=== PATIENT | female | born 1960 | race African-American/Black ===

== ENCOUNTER 2019-12-11 09:06 | Inpatient (IN) | payer OTHER ==
[2019-12-11] VITALS (27 sets, daily range): BP systolic 41–141; BP diastolic 30–110
[~2019-12-11] VITALS: Ht 162.6 cm; Wt 57.6 kg
[2019-12-11] MEDS ORDERED: Rocuronium Bromide 50mg/5ml Inj IV ONE (09:23)
[2019-12-11] MEDS ORDERED: Etomidate 40mg/20ml Inj IV ONE (09:23)
[2019-12-11 09:37] LABS: HEMATOCRIT 30.2 % (37.0-47.0); HEMOGLOBIN 10.7 G/DL (12.0-16.0); MEAN CORPUSCULAR VOLUME 100 FL (80-99); PLATELET COUNT 233 K/UL (150-450); RED BLOOD COUNT 3.03 M/UL (4.20-5.40); RED CELL DISTRIBUTION WIDTH 14.2 % (11.6-14.8); WHITE BLOOD COUNT 18.5 K/UL (4.8-10.8)
[2019-12-11] MEDS ORDERED: Levophed 4mg/4mL Inj IV ONE ×4 (09:58→14:12)
[2019-12-11 10:08] LABS: ALANINE AMINOTRANSFERASE 20 U/L (12-78); ALBUMIN 2.2 G/DL (3.4-5.0); ALBUMIN/GLOBULIN RATIO 0.5 (1.0-2.7); ALKALINE PHOSPHATASE 84 U/L (46-116); ANION GAP 33 mmol/L (5-15); ASPARTATE AMINO TRANSFERASE 17 U/L (15-37); BILIRUBIN,TOTAL 0.7 MG/DL (0.2-1.0); BLOOD UREA NITROGEN 77 mg/dL (7-18); CALCIUM 8.8 MG/DL (8.5-10.1); CHLORIDE 71 MMOL/L (98-107); CREATININE 2.9 MG/DL (0.55-1.30)
[2019-12-11 10:25] LABS: SODIUM 112 MMOL/L (136-145)
[2019-12-11 10:26] LABS: CARBON DIOXIDE 8 MMOL/L (21-32)
[2019-12-11] MEDS ORDERED: Vancomycin 1.5gm/NS Premix 275 ML IVPB ONE (10:30)
[2019-12-11] MEDS ORDERED: Cefepime HCl 2 GM in D5W 55 ML IVPB ONE (10:30)
[2019-12-11] MEDS ORDERED: Vancomycin 1.5 GM in NS 275 ML IVPB SCH (10:39)
--- NOTE | 2019-12-11 10:43 | Diagnostic Imaging Report ---
EXAM: XR Chest, 1 View CLINICAL HISTORY: PREOP TECHNIQUE: Frontal view of the chest. COMPARISON: None FINDINGS: Hardware: Endotracheal tube noted in the region of the right mainstem bronchus. Lungs/pleura: Hazy opacities throughout the left lung and mild patchy opacities in the right lung. No pleural effusion or pneumothorax. Heart/mediastinum: Borderline size of the cardiac silhouette. Soft tissues: Unremarkable. Bones: No acute fracture. Degenerative changes of the spine. Upper abdomen: Normal. IMPRESSION: 1. Endotracheal tube noted in the region of the right mainstem bronchus. 2. Hazy opacities throughout the left lung and mild patchy opacities in the right lung may represent atelectasis versus infectious/inflammatory process.
[2019-12-11] MEDS ORDERED: Sodium Bicarbonate 50ml Carp ONE ×2 (11:58→12:43)
[2019-12-11] MEDS ORDERED: Sodium Bicarbonate 50ml Carp IV ONE ×2 (12:30→12:45)
--- NOTE | 2019-12-11 12:35 | Diagnostic Imaging Report ---
EXAM: XR Chest, 1 View CLINICAL HISTORY: TUBE PLCMT TECHNIQUE: Frontal view of the chest. COMPARISON: Chest radiograph on 12/11/2019 FINDINGS: Hardware: Endotracheal tube terminates near the opening of the right mainstem bronchus. Recommend retraction by approximately 2-3 cm. Lungs/pleura: Decreased opacity in the left lung. Increased patchy opacity throughout the right lung. No pleural effusion or pneumothorax. Heart/mediastinum: Stable mild enlargement of the cardiac silhouette. Soft tissues: Unremarkable. Bones: No acute fracture. Upper abdomen: Normal. IMPRESSION: 1. Endotracheal tube terminates near the opening of the right mainstem bronchus. Recommend retraction by approximately 2-3 cm. 2. Decreased opacity in the left lung. Increased patchy opacity throughout the right lung.
--- NOTE | 2019-12-11 12:36 | Emergency Room Report ---
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 Patient History Limited by: medical condition - Only altered Past Medical History: see triage record Last Menstrual Period: n/a Reviewed Nursing Documentation: PMH: Agreed; PSxH: Agreed Nursing Documentation-PMH Past Medical History: No History, Except For Hx Diabetes: Yes Review of Systems All Other Systems: limited Physical Exam Vital Signs Date Time Temp Pulse Resp B/P (MAP) Pulse Ox O2 Delivery O2 Flow Rate FiO2 12/11/19 09:03 99.0 105 18 141/110 (120) 98 Room Air 12/11/19 10:17 100 12/11/19 12:02 15.0 Sp02 EP Interpretation: reviewed, normal General Appearance: severe distress, lethargic Head: normocephalic, atraumatic Eyes: bilateral eye PERRL, bilateral eye EOMI ENT: uvula midline, dry mucus membranes Neck: supple, thyroid normal, supple/symm/no masses Respiratory: lungs clear, respiratory distress, accessory muscle use, other - kussmaul breathing Cardiovascular #1: normal peripheral pulses, no edema, no gallop, no murmur, tachycardia Gastrointestinal: non tender, soft, no guarding, no rebound Musculoskeletal: normal inspection Neurologic: alert, oriented x3 Psychiatric: mood/affect normal Skin: no rash, warm/dry Procedures Critical Care Time Critical Care Time Given the critical condition in which the patient arrived, the patient was immediately assessed by myself and the nurse, and cardiac monitoring initiated due to the potential for rapid decompensation of the patient's clinical condition. During the course of the patient's stay, I spent a considerable amount of time at the bedside performing serial re-evaluations of the patient's hemodynamic and clinical status because of the recognized potential threat to life or limb in this condition. I then had a chance to review not only all of the available current laboratory and radiographic studies obtained today, but I also reviewed old records available to me at the time. Additionally, any ancillary information available including digitizer records were reviewed. Sequential vital signs were obtained. Critical Care time of 130 minutes was performed exclusive of billable procedures. Central Line Central Line : Consent: Emergent Central Line Lumen: triple No Max Barrier Tech Because: emergency insertion Central Line Postion: femoral (L) Complications: none Central Line Post Position: sutured, good blood return Attempts: One Patient Tolerated: Well Intubation Intubation : Consent: Emergent Time of Intubation: 10:17 Intubation Method: orotracheal Tube Size (cm): 7.5 Medications: Etomidate, Rocuronium Breath Sounds after Intubation: equal Intubation Complications: no complications Post Intubation Xray: Yes Progress/Xray Impression: Right mainstem Attempts: One Patient Tolerated: Well Complications: None Progress Endotracheal tube was pulled back due to right mainstem refer to xrays Medical Decision Making Diagnostic Impression: Primary Impression: Altered mental status Qualified Codes: R41.82 - Altered mental status, unspecified Additional Impressions: Hypotension Qualified Codes: I95.9 - Hypotension, unspecified DKA (diabetic ketoacidoses) Qualified Codes: E13.11 - Other specified diabetes mellitus with ketoacidosis with coma Hyperkalemia ER Course 58-year-old female presents with altered mental status respiratory distress. Differential diagnosis includes diabetic ketoacidosis, sepsis I was called emergently to bedside patient found to have tachypnea, Kussmaul breathing patient then started aspirating black vomitus in addition to blood. Patient's blood pressure was extremely hypotensive patient required fluid resuscitation, patient was volume depleted with multiple IVs infiltrating. Emergent central line was placed due to her worsening hypotension. Patient was given resuscitation through the central line with push dose pressors as well as fluids in order to prevent ari-arrest intubation. Patient was emergently intubated. Patient continues to be altered unresponsive. Patient was then admitted to ICU under Dr. Pinzon. Hyperkalemia treated with insulin. Insulin drip started Abx started for possible occult infection Laboratory Tests Test 12/11/19 09:20 12/11/19 10:30 12/11/19 11:35 White Blood Count 18.5 K/UL (4.8-10.8) H Red Blood Count 3.03 M/UL (4.20-5.40) L Hemoglobin 10.7 G/DL (12.0-16.0) L Hematocrit 30.2 % (37.0-47.0) L Mean Corpuscular Volume 100 FL (80-99) H Mean Corpuscular Hemoglobin 35.3 PG (27.0-31.0) H Mean Corpuscular Hemoglobin Concent 35.4 G/DL (32.0-36.0) Red Cell Distribution Width 14.2 % (11.6-14.8) Platelet Count 233 K/UL (150-450) Mean Platelet Volume 8.1 FL (6.5-10.1) Neutrophils (%) (Auto) % (45.0-75.0) Lymphocytes (%) (Auto) % (20.0-45.0) Monocytes (%) (Auto) % (1.0-10.0) Eosinophils (%) (Auto) % (0.0-3.0) Basophils (%) (Auto) % (0.0-2.0) Differential Total Cells Counted 100 Neutrophils % (Manual) 84 % (45-75) H Lymphocytes % (Manual) 6 % (20-45) L Monocytes % (Manual) 7 % (1-10) Eosinophils % (Manual) 0 % (0-3) Basophils % (Manual) 0 % (0-2) Band Neutrophils 3 % (0-8) Platelet Estimate Adequate Platelet Morphology Normal Anisocytosis 1+ Macrocytosis 1+ Sodium Level 112 MMOL/L (136-145) *L Potassium Level 6.0 MMOL/L (3.5-5.1) *H Chloride Level 71 MMOL/L (98-107) L Carbon Dioxide Level 8 MMOL/L (21-32) *L Anion Gap 33 mmol/L (5-15) H Blood Urea Nitrogen 77 mg/dL (7-18) H Creatinine 2.9 MG/DL (0.55-1.30) H Estimated Glomerular Filtration Rate 20.2 mL/min (>60) Glucose Level 1472 MG/DL (74-106) *H Lactic Acid Level 2.60 mmol/L (0.4-2.0) H 5.90 mmol/L (0.66-2.22) H Calcium Level 8.8 MG/DL (8.5-10.1) Magnesium Level 2.9 MG/DL (1.8-2.4) H Total Bilirubin 0.7 MG/DL (0.2-1.0) Aspartate Amino Transferase (AST) 17 U/L (15-37) Alanine Aminotransferase (ALT) 20 U/L (12-78) Alkaline Phosphatase 84 U/L (46-116) Total Protein 6.5 G/DL (6.4-8.2) Albumin 2.2 G/DL (3.4-5.0) L Globulin 4.3 g/dL Albumin/Globulin Ratio 0.5 (1.0-2.7) L Acetone Level Positive-large (NEGATIVE) Venous Blood pH 6.923 Venous Blood Partial Pressure CO2 41.2 Venous Blood Partial Pressure O2 66.9 Venous Blood HCO3 8.3 Venous Blood Total Carbon Dioxide Pending Venous Blood Base Excess -22.9 Venous Blood Carboxyhemoglobin Pending Methemoglobin Pending EKG Diagnostic Results EKG Time: 09:24 EP Interpretation: Sinus tachycardia, rate 114, QTc 443, peaked T waves Rhythm Strip Diag. Results Rhythm Strip Time: 12:36 EP Interpretation: yes Chest X-Ray Diagnostic Results Chest X-Ray Diagnostic Results : Chest X-Ray Ordered: Yes # of Views/Limited/Complete: 1 View Indication: Shortness of Breath EP Interpretation: Yes Interpretation: no consolidation, no effusion, no pneumothorax, no acute cardiopulmonary disease, other - Right mainstem intubation Impression: Other - Right mainstem intubation Electronically Signed by: Sony Martin MD Last Vital Signs Date Time Temp Pulse Resp B/P (MAP) Pulse Ox O2 Delivery O2 Flow Rate FiO2 12/11/19 12:15 85/52 12/11/19 12:02 97.8 99 25 95 Mechanical Ventilator 15.0 100 Disposition: ADMITTED INPATIENT Condition: Critical Referrals: [facility],REFERRING (PCP) Sony Martin MD December 11, 2019 12:36
[2019-12-11] MEDS ORDERED: Insulin Human Regular 100units/ml 3ml ONE (12:37)
[2019-12-11] MEDS ORDERED: Insulin Reg 100 units Premix 100 ML IV SCH (12:45)
[2019-12-11] MEDS ORDERED: Insulin Human Regular 100units/ml 3ml IV ONE (12:45)
[2019-12-11] MEDS ORDERED: Vasopressin 100 UNITS in NS 95 ML IV SCH (13:30)
[2019-12-11] MEDS ORDERED: EPINEPHrine 1mg/1ml Amp 1 MG in D5W 249 ML IV SCH (14:02)
[2019-12-11] MEDS ORDERED: Calcium Gluconate 1gm/10ml vial ONE (14:09)
--- NOTE | 2019-12-11 14:22 | Diagnostic Imaging Report ---
EXAM: XR Chest, 1 View CLINICAL HISTORY: PAIN TECHNIQUE: Frontal view of the chest. COMPARISON: Chest radiograph on 12/11/2019 at 1055 hrs. FINDINGS: Hardware: Endotracheal tube terminates in the region of the mid/lower thoracic trachea above the janel. Enteric tube terminates in the region of the stomach. Lungs/pleura: Increased patchy opacities/consolidations in the right lung, most prominent in the mid and lower lung. Similar patchy opacities in the left mid and lower lung. No pleural effusion or pneumothorax. Heart/mediastinum: Stable borderline size of the cardiac silhouette. Soft tissues: Unremarkable. Bones: No acute fracture. Upper abdomen: Normal. IMPRESSION: 1. Endotracheal tube terminates in the region of the mid/lower thoracic trachea above the janel. Enteric tube terminates in the region of the stomach. 2. Increased patchy opacities/consolidations in the right lung, most prominent in the mid and lower lung. Similar patchy opacities in the left mid and lower lung.
[2019-12-11] MEDS: LR 1000ml 1,000 ML IV SCH ×2 (15:18→22:34)
[2019-12-11 15:42] LABS: ANION GAP 24 mmol/L (5-15); BLOOD UREA NITROGEN 77 mg/dL (7-18); CALCIUM 7.5 MG/DL (8.5-10.1); CARBON DIOXIDE 13 MMOL/L (21-32); CHLORIDE 94 MMOL/L (98-107); CREATININE 2.8 MG/DL (0.55-1.30); POTASSIUM 4.6 MMOL/L (3.5-5.1); SODIUM 131 MMOL/L (136-145)
[2019-12-11 15:49] LABS: ALANINE AMINOTRANSFERASE 28 U/L (12-78); ALBUMIN 1.3 G/DL (3.4-5.0); ALKALINE PHOSPHATASE 72 U/L (46-116); ASPARTATE AMINO TRANSFERASE 53 U/L (15-37); BILIRUBIN,TOTAL 0.4 MG/DL (0.2-1.0)
[2019-12-11] MEDS: Insulin Reg 100 units Premix 100 ML IVPB SCH ×3 (17:52→23:02)
[2019-12-11] MEDS ORDERED: Phenylephrine 10mg/ml 5ml vial IV ONE (18:02)
[2019-12-11] MEDS: Insulin Human Regular 100units/ml 3ml IV PRN ×5 (18:06→23:28)
[2019-12-11] MEDS: Phenylephrine 50 MG in D5W 245 ML IV SCH ×2 (18:18→21:57)
[2019-12-11] MEDS: Vasopressin 100 UNITS in NS 95 ML IV SCH (18:19)
[2019-12-11 21:04] LABS: ANION GAP 19 mmol/L (5-15); BLOOD UREA NITROGEN 78 mg/dL (7-18); CALCIUM 7.6 MG/DL (8.5-10.1); CARBON DIOXIDE 17 MMOL/L (21-32); CHLORIDE 101 MMOL/L (98-107); CREATININE 2.5 MG/DL (0.55-1.30); POTASSIUM 3.9 MMOL/L (3.5-5.1); SODIUM 137 MMOL/L (136-145)
[2019-12-11] MEDS: fentaNYL 2500mcg/NS 250ml 250 ML IV SCH (22:32)
[2019-12-11] MEDS ORDERED: D5W 550ml IV ONE ×2 (22:39)
[2019-12-11] MEDS ORDERED: NS 275ml ONE (22:39)
[2019-12-11] MEDS: Piperacillin/Tazobactam 2.25 GM in NS 55 ML IV SCH (22:54)
[2019-12-11] MEDS: Insulin Rate Change 1 Each MISC PRN (23:29)
[2019-12-12] VITALS (68 sets, daily range): BP systolic 87–228; BP diastolic 41–185
[2019-12-12] MEDS: Insulin Human Regular 100units/ml 3ml IV PRN ×8 (00:20→17:23)
[2019-12-12] MEDS: Norepinephrine Bitartrate 16 MG in Sodium Chloride 484 ML IV SCH ×3 (00:21→22:13)
[2019-12-12] MEDS: Insulin Rate Change 1 Each MISC PRN ×10 (01:25→23:30)
[2019-12-12] MEDS: PHENYLEPHRINE IV SCH ×3 (01:39→21:49)
[2019-12-12] MEDS: D5W IV SCH ×3 (01:39→21:49)
[2019-12-12] MEDS: Insulin Reg 100 units Premix 100 ML IVPB SCH ×3 (02:25→23:06)
[2019-12-12 02:59] LABS: ANION GAP 14 mmol/L (5-15); BLOOD UREA NITROGEN 65 mg/dL (7-18); CALCIUM 8.1 MG/DL (8.5-10.1); CARBON DIOXIDE 21 MMOL/L (21-32); CHLORIDE 107 MMOL/L (98-107); SODIUM 142 MMOL/L (136-145)
--- NOTE | 2019-12-12 03:30 | History and Physical Report ---
DATE OF ADMISSION: 12/11/2019 SUBJECTIVE: This is 58-year-old female who came from home to emergency room with generalized weakness. The patient was found to have acute respiratory distress and cardiopulmonary arrest. The patient was resuscitated. Also, the patient was found to have uncontrolled blood sugar. Her sugar was 1000 in the emergency room. The patient was placed on ventilator as well as on DKA protocol. Current Accu-Chek is 400. The patient is nonverbal, lethargic. PAST MEDICAL HISTORY: Significant for diabetes and hypertension. MEDICATIONS: Cannot be obtained. PHYSICAL EXAMINATION: GENERAL: This is an elderly female, currently on ventilator. Occasionally moves her face and combative. VITAL SIGNS: In ICU, blood pressure 85/53 with Levophed drip and epinephrine drip, pulse 134, respiratory rate 44, temperature 98. HEENT: Eyes are closed. NECK: Supple. CHEST: Bilateral decreased breath sounds. CARDIOVASCULAR: Regular rhythm. No gallop. No murmur. ABDOMEN: Soft. Positive bowel sounds. EXTREMITIES: CCE. NEUROLOGICAL: The patient is nonverbal and bedbound. Occasionally responds with touch stimuli. LABORATORY AND DIAGNOSTIC DATA: Her white counts are 18,000, hemoglobin 11, hematocrit 30, platelets are 253. Chemistry panel, sodium 137, potassium 3.9, BUN 78, creatinine 2.5, glucose 992, 605, and Accu-Chek is 400. Her ABG is improving. Initially, pH was 6.9, now it is 7.37, bicarb is 26, saturation 98% on 100% oxygen. Chest x-ray is showing endotracheal tube is terminated in the region of mid lower thoracic trachea and tube terminated in the region of the stomach, increased patchy opacity consolidation, right lung most prominent at mid and lower lungs, similar patchy opacity in the left mid lower lung. ASSESSMENT: 1. Acute cardiopulmonary arrest. 2. Acute respiratory failure. 3. DKA. 4. Acute renal failure. 5. Hypotension. 6. Leukocytosis, rule out sepsis. 7. The patient is in ICU, on Levophed drip as well as epinephrine drip. The patient is on blood pressure running 90s, nonverbal. PLAN: 1. We will continue ventilator. 2. Continue bronchodilator treatments. 3. Continue Levophed drip, epinephrine drip, and antibiotics. 4. The patient was given IV fluids, sliding scale, Accu-Chek, Zosyn. 5. Consider discuss with Dr. Ortega for endocrine consult and Dr. Schaffer for Pulmonary. Also consider Nephrology consult, Dr. Ventura. PROGNOSIS: Still critical. Frank Pinzon M.D. DR: TRACE JOB#: [id number] CC:
[2019-12-12] MEDS: Piperacillin/Tazobactam 2.25 GM in NS 55 ML IV SCH (05:55)
[2019-12-12] MEDS: LR 1000ml 1,000 ML IV SCH (05:59)
[2019-12-12] MEDS ORDERED: Calcium Gluconate 1gm/10ml vial IVP ONE (06:45)
--- NOTE | 2019-12-12 08:49 | General Progress Note ---
Assessment/Plan Problem List: (1) Coffee ground emesis ICD Codes: K92.0 - Hematemesis SNOMED: 21554421 (2) High blood urea nitrogen (BUN) ICD Codes: R79.9 - Abnormal finding of blood chemistry, unspecified SNOMED: 811073347, 046289672 (3) High serum creatine ICD Codes: R79.89 - Other specified abnormal findings of blood chemistry SNOMED: 858746035, 665177784 (4) DKA (diabetic ketoacidoses) ICD Codes: E11.10 - Type 2 diabetes mellitus with ketoacidosis without coma SNOMED: 865668683, 46347875 Qualifiers: Qualified Codes: E13.11 - Other specified diabetes mellitus with ketoacidosis with coma (5) Altered mental status ICD Codes: R41.82 - Altered mental status, unspecified SNOMED: 104886815, 92717375 Qualifiers: Qualified Codes: R41.82 - Altered mental status, unspecified (6) Cardiac arrest ICD Codes: I46.9 - Cardiac arrest, cause unspecified SNOMED: 692383733 (7) Respiratory distress ICD Codes: R06.03 - Acute respiratory distress SNOMED: 566501666 Assessment/Plan: on 3 pressors not stable for GI procedures ppi iv BID reglan monitor H&H transfuse to keep HGB above 7.5 Subjective ROS Limited/Unobtainable: No Allergies: Coded Allergies: No Known Allergies (Unverified , 12/11/19) Objective Last 24 Hour Vital Signs Date Time Temp Pulse Resp B/P (MAP) Pulse Ox O2 Delivery O2 Flow Rate FiO2 12/12/19 08:00 24 136/64 Mechanical Ventilator 60 12/12/19 08:00 136/64 12/12/19 08:00 97.7 117 23 136/64 (88) 98 12/12/19 07:45 117 24 134/71 (92) 98 12/12/19 07:30 119 25 130/65 (86) 97 12/12/19 07:28 119 25 60 12/12/19 07:00 24 138/68 Mechanical Ventilator 60 12/12/19 07:00 24 138/68 Mechanical Ventilator 60 12/12/19 07:00 24 138/68 Mechanical Ventilator 60 12/12/19 07:00 24 138/68 Mechanical Ventilator 60 12/12/19 07:00 138/68 5/17/20 07:00 138/68 12/12/19 07:00 138/68 12/12/19 07:00 138/68 12/12/19 07:00 119 24 138/68 (91) 96 12/12/19 06:30 122 24 124/66 (85) 96 12/12/19 06:30 119 26 12/12/19 06:00 25 183/65 Mechanical Ventilator 60 12/12/19 06:00 25 183/65 Mechanical Ventilator 60 12/12/19 06:00 25 183/65 Mechanical Ventilator 60 12/12/19 06:00 25 183/65 Mechanical Ventilator 60 12/12/19 06:00 183/65 12/12/19 06:00 183/65 12/12/19 06:00 183/65 12/12/19 06:00 183/65 12/12/19 06:00 122 26 183/65 (104) 96 12/12/19 05:30 123 26 138/77 (97) 96 12/12/19 05:00 124 26 142/77 (98) 96 12/12/19 05:00 25 146/64 Mechanical Ventilator 60 12/12/19 05:00 146/64 12/12/19 04:30 127 26 149/64 (92) 96 12/12/19 04:00 126 12/12/19 04:00 26 142/70 Mechanical Ventilator 60 12/12/19 04:00 142/70 12/12/19 04:00 100.4 127 26 146/68 (94) 95 12/12/19 04:00 Mechanical Ventilator 12/12/19 03:30 125 28 60 12/12/19 03:30 126 24 132/68 (89) 99 12/12/19 03:00 126 24 131/71 (91) 99 12/12/19 03:00 25 131/77 Mechanical Ventilator 60 12/12/19 03:00 131/71 12/12/19 02:30 127 24 124/66 (85) 99 12/12/19 02:00 129 24 127/67 (87) 99 12/12/19 02:00 26 127/67 Mechanical Ventilator 80 12/12/19 02:00 126/67 12/12/19 01:39 128 108/69 12/12/19 01:30 129 24 114/62 (79) 99 12/12/19 01:00 24 94/44 Mechanical Ventilator 80 12/12/19 01:00 94/44 12/12/19 01:00 129 24 94/44 (61) 99 12/12/19 00:30 129 26 120/62 (81) 98 12/12/19 00:21 106/73 12/12/19 00:00 132 12/12/19 00:00 Mechanical Ventilator 12/12/19 00:00 24 106/73 Mechanical Ventilator 100 12/12/19 00:00 99.8 132 26 100/63 (75) 98 12/11/19 23:30 132 26 100/63 (75) 98 12/11/19 23:21 133 29 80 12/11/19 23:02 27 96/57 Mechanical Ventilator 80 12/11/19 23:00 133 31 93/57 (69) 100 12/11/19 22:32 48 103/61 Mechanical Ventilator 12/11/19 22:30 135 46 93/57 (69) 99 12/11/19 22:00 137 46 103/61 (75) 99 12/11/19 22:00 100/59 12/11/19 21:57 135 91/54 12/11/19 21:30 134 46 91/54 (66) 98 12/11/19 21:00 134 46 98/54 (69) 98 12/11/19 21:00 93/53 12/11/19 20:30 134 41 99/47 (64) 96 12/11/19 20:00 87/52 12/11/19 20:00 98.6 134 41 117/81 (93) 96 12/11/19 20:00 132 12/11/19 20:00 Mechanical Ventilator 12/11/19 20:00 133 41 87/52 (64) 96 12/11/19 19:31 85/53 12/11/19 19:30 99.0 130 39 85/53 (64) 96 12/11/19 19:30 134 44 100 12/11/19 19:00 85/53 12/11/19 19:00 129 36 85/53 (64) 96 12/11/19 18:45 82/41 12/11/19 18:45 128 38 82/41 (55) 95 12/11/19 18:30 97/55 12/11/19 18:30 124 38 97/55 (69) 94 12/11/19 18:18 116 86/52 12/11/19 18:18 86/52 12/11/19 18:15 123 34 93/57 (69) 95 12/11/19 18:00 120 28 62/41 (48) 96 12/11/19 17:45 119 28 78/47 (57) 97 12/11/19 17:30 119 27 55/30 (38) 96 12/11/19 17:30 119 27 100 12/11/19 17:15 118 32 88/68 (75) 95 12/11/19 17:00 117 32 96/75 (82) 93 12/11/19 16:45 115 31 65/43 (50) 92 12/11/19 16:30 114 31 130/75 (93) 90 12/11/19 16:30 Mechanical Ventilator 12/11/19 16:15 114 30 110/63 (79) 89 12/11/19 16:00 Mechanical Ventilator 12/11/19 16:00 97.4 105 29 110/63 (79) 88 12/11/19 16:00 100 12/11/19 15:56 41/32 12/11/19 15:45 111 26 110/63 (79) 88 12/11/19 15:30 106 28 89 Mechanical Ventilator 100 12/11/19 15:30 106 28 100 12/11/19 15:30 88/33 12/11/19 15:30 97.9 103 26 88/33 92 Mechanical Ventilator 100 12/11/19 14:40 66/35 12/11/19 14:30 41/32 12/11/19 14:00 21 41/32 72 Mechanical Ventilator 100 12/11/19 13:24 100 12/11/19 13:07 102 25 100 12/11/19 13:00 84/34 12/11/19 12:15 85/52 12/11/19 12:02 97.8 99 25 84/32 95 Mechanical Ventilator 15.0 100 12/11/19 11:33 99 25 100 12/11/19 11:15 87/42 12/11/19 11:07 72/27 12/11/19 11:02 71/35 12/11/19 11:00 98.7 106 25 84/31 95 Room Air 100 12/11/19 10:57 79/44 12/11/19 10:52 78/33 12/11/19 10:47 84/31 12/11/19 10:42 78/42 12/11/19 10:37 52/35 12/11/19 10:32 68/18 12/11/19 10:17 139 25 100 12/11/19 09:29 114 28 Room Air 12/11/19 09:29 99.0 128 28 141/110 98 Room Air 12/11/19 09:03 99.0 105 18 141/110 (120) 98 Room Air Intake and Output 12/11/19 12/12/19 19:00 07:00 Intake Total 1348.20 ml 4712.245 ml Output Total 1001 ml 1260 ml Balance 347.20 ml 3452.245 ml Intake IV Total 1348.20 ml 4712.245 ml Output Urine Total 501 ml 1160 ml Gastric Drainage Total 500 ml 100 ml Laboratory Tests 12/11/19 09:20: White Blood Count 18.5H, Red Blood Count 3.03L, Hemoglobin 10.7L, Hematocrit 30.2L, Mean Corpuscular Volume 100H, Mean Corpuscular Hemoglobin 35.3H, Mean Corpuscular Hemoglobin Concent 35.4, Red Cell Distribution Width 14.2, Platelet Count 233, Mean Platelet Volume 8.1, Neutrophils (%) (Auto) , Lymphocytes (%) ( Auto) , Monocytes (%) (Auto) , Eosinophils (%) (Auto) , Basophils (%) (Auto) , Differential Total Cells Counted 100, Neutrophils % (Manual) 84H, Lymphocytes % (Manual) 6L, Monocytes % (Manual) 7, Eosinophils % (Manual) 0, Basophils % ( Manual) 0, Band Neutrophils 3, Platelet Estimate Adequate, Platelet Morphology Normal, Anisocytosis 1+, Macrocytosis 1+, Sodium Level 112*L, Potassium Level 6.0*H, Chloride Level 71L, Carbon Dioxide Level 8*L, Anion Gap 33H, Blood Urea Nitrogen 77H, Creatinine 2.9H, Estimat Glomerular Filtration Rate 20.2, Glucose Level 1472*H, Lactic Acid Level 2.60H, Calcium Level 8.8, Magnesium Level 2.9H, Total Bilirubin 0.7, Aspartate Amino Transf (AST/SGOT) 17, Alanine Aminotransferase (ALT/SGPT) 20, Alkaline Phosphatase 84, Total Protein 6.5, Albumin 2.2L, Globulin 4.3, Albumin/Globulin Ratio 0.5L, Acetone Level Positive- large 12/11/19 10:30: Lactic Acid Level 5.90H 12/11/19 11:35: Venous Blood pH 6.923, Venous Blood Partial Pressure CO2 41.2, Venous Blood Partial Pressure O2 66.9, Venous Blood HCO3 8.3, Venous Blood Total Carbon Dioxide [Pending], Venous Blood Base Excess -22.9, Venous Blood Carboxyhemoglobin [Pending], Methemoglobin [Pending] 12/11/19 14:45: Sodium Level 131#L, Potassium Level 4.6, Chloride Level 94L, Carbon Dioxide Level 13L, Anion Gap 24H, Blood Urea Nitrogen 77H, Creatinine 2.8H, Estimat Glomerular Filtration Rate 21.1, Glucose Level 992#*H, Calcium Level 7.5L, Total Bilirubin 0.4, Aspartate Amino Transf (AST/SGOT) 53H, Alanine Aminotransferase (ALT/SGPT) 28, Alkaline Phosphatase 72, Total Protein 4.1#L, Albumin 1.3L, Globulin 2.8 12/11/19 20:15: Sodium Level 137, Potassium Level 3.9, Chloride Level 101, Carbon Dioxide Level 17L, Anion Gap 19H, Blood Urea Nitrogen 78H, Creatinine 2.5H, Estimat Glomerular Filtration Rate 24.0, Glucose Level 605#*H, Hemoglobin A1c > 16.0H, Lactic Acid Level 4.40H, Calcium Level 7.6L 12/11/19 20:49: Arterial Blood pH 7.374, Arterial Blood Partial Pressure CO2 26.5L, Arterial Blood Partial Pressure O2 90.3, Arterial Blood HCO3 15.1*L, Arterial Blood Oxygen Saturation 96.3, Arterial Blood Base Excess -8.9L, Scotty Test Positive 12/12/19 02:00: Sodium Level 142, Potassium Level 3.0L, Chloride Level 107, Carbon Dioxide Level 21, Anion Gap 14, Blood Urea Nitrogen 65H, Creatinine 2.0H, Estimat Glomerular Filtration Rate 31.0, Glucose Level 359#H, Lactic Acid Level 4.40H, Calcium Level 8.1L 12/12/19 07:32: Arterial Blood pH 7.433, Arterial Blood Partial Pressure CO2 30.4L, Arterial Blood Partial Pressure O2 73.3L, Arterial Blood HCO3 19.9L, Arterial Blood Oxygen Saturation 93.9L, Arterial Blood Base Excess -3.9L, Scotty Test Positive Height (Feet): 5 Height (Inches): 5.00 Weight (Pounds): 144 General Appearance: no apparent distress EENT: PERRL/EOMI Neck: supple Cardiovascular: normal rate Respiratory/Chest: decreased breath sounds Abdomen: normal bowel sounds, non tender, soft Extremities: non-tender Maykel Stephen MD December 12, 2019 08:49
[2019-12-12] MEDS: Pantoprazole Inj IVP SCH ×2 (09:10→21:18)
[2019-12-12 11:10] LABS: APPEARANCE,URINE CLEAR; BILIRUBIN, URINE NEGATIVE (NEGATIVE); COLOR,URINE PALE YELLOW; GLUCOSE, URINE (UA) 2+ (NEGATIVE); KETONES,URINE 1+ (NEGATIVE); LEUKOCYTE ESTERASE ,URINE NEGATIVE (NEGATIVE); NITRITE,URINE NEGATIVE (NEGATIVE); PH,URINE 6 (4.5-8.0); PROTEIN,URINE 3+ (NEGATIVE); UROBILINOGEN,URINE NORMAL MG/DL (0.0-1.0)
--- NOTE | 2019-12-12 11:58 | Consultation ---
Consult Note Consult Note I was asked to evaluate the patient at the request of Dr. Pinzon Patient seen in ICU, around 10 AM discussed with nurse Carmina Patient is 58 years old female was admitted with diabetic ketoacidosis however it appears that the patient was coded in the emergency room she aspirated and currently in ICU on 3 pressors Emergency room note: 58-year-old female over the past few days has become very altered, no known aggravating or alleviating factors severity is severe, constant patient has a history of diabetes, hypertension patient presents for evaluation No Known Allergies (Unverified , 12/11/19) COVID-19 Screening Contact w/high risk pt: No Recent Travel to affected area: No Experienced COVID-19 symptoms?: No COVID-19 Testing performed PARTS CLERK: No Past Medical History: No History, Except For Hx Diabetes: Yes Assessment/Plan Acute renal failure which probably is superimposed on chronic kidney disease History of diabetes mellitus, most likely diabetic nephropathy. Presents with diabetic ketoacidosis Acute respiratory failure requiring intubation and mechanical ventilation Aspiration pneumonia, upper GI bleed Proteinuria and severe hypoalbuminemia should rule out nephrotic range proteinuria Anemia Electrolyte imbalances Suggestions: Hydrate Correct electrolytes Accurate intake and output Monitor renal parameters Avoid nephrotoxic's Anemia work-up Urine studies Keep blood sugar and blood pressure in check Per consultants Discussed with Don Pimentel MD December 12, 2019 11:58
[2019-12-12 12:00] LABS: BASOPHILS % (AUTO) 0.9 % (0.0-2.0); EOSINOPHILS % (AUTO) 0.3 % (0.0-3.0); HEMATOCRIT 21.1 % (37.0-47.0); LYMPHOCYTES % (AUTO) 15.6 % (20.0-45.0); MEAN CORPUSCULAR VOLUME 86 FL (80-99); NEUTROPHILS % (AUTO) 81.2 % (45.0-75.0); PLATELET COUNT 132 K/UL (150-450); RED BLOOD COUNT 2.45 M/UL (4.20-5.40)
[2019-12-12 12:01] LABS: ALBUMIN 1.3 G/DL (3.4-5.0); ALKALINE PHOSPHATASE 61 U/L (46-116); BILIRUBIN,DIRECT < 0.1 MG/DL (0.0-0.3); BILIRUBIN,TOTAL 0.2 MG/DL (0.2-1.0); GAMMA GLUTAMYL TRANSPEPTIDASE 20 U/L (5-85)
[2019-12-12 12:02] LABS: ANION GAP 12 mmol/L (5-15); BLOOD UREA NITROGEN 43 mg/dL (7-18); CALCIUM 7.8 MG/DL (8.5-10.1); CARBON DIOXIDE 21 MMOL/L (21-32); CHLORIDE 109 MMOL/L (98-107); CREATININE 1.3 MG/DL (0.55-1.30); SODIUM 142 MMOL/L (136-145)
[2019-12-12 12:14] LABS: PHOSPHORUS 0.7 MG/DL (2.5-4.9)
[2019-12-12 12:14] LABS: ALANINE AMINOTRANSFERASE 89 U/L (12-78); ASPARTATE AMINO TRANSFERASE 238 U/L (15-37)
--- NOTE | 2019-12-12 12:29 | Consultation ---
DATE OF CONSULTATION: 12/12/2019 PULMONARY CONSULTATION CONSULTING PHYSICIAN: Robin Schaffer MD. HISTORY OF PRESENT ILLNESS: This is a 58-year-old female, who presented to the hospital yesterday with altered mental status. Subsequently, the patient was intubated. Currently, she has an NG in place and there is dark material seen being suctioned out of the NG tube suspicious of coffee-ground. No other information known about this patient. She is, however, known to be a diabetic. The patient underwent placement of a triple-lumen catheter and intubation. She was also hypotensive requiring fluid resuscitation as well as pressors. The patient was hyperkalemic requiring insulin therapy and insulin drip has been started. REVIEW OF SYSTEMS: Not obtainable. PAST HISTORY: Not known. PHYSICAL EXAMINATION: VITAL SIGNS: Blood pressure 110/50, heart rate is 120, respirations are 24. She is on AC, tidal volume 500, FiO2 60%. GENERAL: Reveals a 58-year-old female. HEENT: Unremarkable. NG tube is in place. Endotracheal tube is in place. CHEST: Shows decreased breath sounds bilaterally. ABDOMEN: Soft. EXTREMITIES: There is no edema. LABORATORY DATA: Laboratory testing shows hemoglobin of 10, white count 18,000, platelet count is normal. Chemistries notable for potassium currently of 3. Glucose was 992 earlier, now 359. Lactic acid 4.4. Calcium 8.1. ABG, pH 7.43, pCO2 of 30, pO2 of 73. IMPRESSION: 1. DKA. 2. Upper GI bleed. 3. Respiratory failure. 4. Lactic acidosis. DISCUSSION: Admit to the hospital. The patient needs broad-spectrum antibiotics. GI consult for upper gastrointestinal bleeding, pressors as needed. We will continue mechanical ventilation, sedation, Protonix, DVT prophylaxis. We will follow carefully. Robin Schaffer M.D. DR: GIANCARLO JOB#: [id number] CC:
[2019-12-12] MEDS: Vasopressin 100 UNITS in NS 95 ML IV SCH (13:14)
[2019-12-12] MEDS: Acetaminophen 650 MG SUPP RECTAL PRN (13:14)
[2019-12-12] MEDS: Metoclopramide 10mg/2ml Inj IVP SCH ×2 (13:14→22:24)
[2019-12-12] MEDS ORDERED: NS w/KCl 40mEq 1,000 ML IV SCH (14:00)
[2019-12-12] MEDS: Zoysn 3.37gm in NS 100ML IVPB SCH ×2 (14:26→22:24)
[2019-12-12] MEDS: Potassium Phosphate 15mm/250ml 250 ML IVPB SCH ×2 (14:26→19:02)
--- NOTE | 2019-12-12 14:37 | Cardiac Electrophysiology PN ---
Subjective Subjective [id number] Objective Last 24 Hour Vital Signs Date Time Temp Pulse Resp B/P (MAP) Pulse Ox O2 Delivery O2 Flow Rate FiO2 12/12/19 13:44 100.1 12/12/19 13:00 124 24 103/47 (65) 99 12/12/19 12:45 121 24 114/42 (66) 99 12/12/19 12:30 119 25 116/55 (75) 98 12/12/19 12:15 119 25 117/60 (79) 98 12/12/19 12:00 101.7 118 25 115/58 (77) 97 12/12/19 11:30 120 25 106/70 (82) 97 12/12/19 11:15 117 24 116/63 (80) 97 12/12/19 11:00 24 116/63 Mechanical Ventilator 60 12/12/19 11:00 116/63 12/12/19 11:00 118 24 109/54 (72) 97 12/12/19 10:45 117 24 101/68 (79) 98 12/12/19 10:44 117 25 105/59 (74) 98 12/12/19 10:39 117 24 60 12/12/19 10:30 120 23 87/41 (56) 99 12/12/19 10:15 121 25 110/59 (76) 98 12/12/19 10:11 100/54 12/12/19 10:00 24 110/59 Mechanical Ventilator 60 12/12/19 10:00 110/59 12/12/19 10:00 118 24 100/54 (69) 98 12/12/19 09:45 118 22 124/62 (82) 99 12/12/19 09:30 122 24 60 12/12/19 09:30 121 25 107/56 (73) 98 12/12/19 09:15 119 24 109/76 (87) 98 12/12/19 09:10 120 104/51 12/12/19 09:00 24 109/76 Mechanical Ventilator 60 12/12/19 09:00 124/62 12/12/19 09:00 123 25 104/51 (68) 97 12/12/19 08:45 122 24 110/53 (72) 98 12/12/19 08:30 120 24 120/48 (72) 97 12/12/19 08:15 117 23 136/71 (92) 97 12/12/19 08:00 Mechanical Ventilator 12/12/19 08:00 24 136/64 Mechanical Ventilator 60 12/12/19 08:00 136/64 12/12/19 08:00 120 12/12/19 08:00 97.7 117 23 136/64 (88) 98 12/12/19 07:45 117 24 134/71 (92) 98 12/12/19 07:30 119 25 130/65 (86) 97 12/12/19 07:28 119 25 60 12/12/19 07:00 24 138/68 Mechanical Ventilator 60 12/12/19 07:00 24 138/68 Mechanical Ventilator 60 12/12/19 07:00 24 138/68 Mechanical Ventilator 60 12/12/19 07:00 24 138/68 Mechanical Ventilator 60 12/12/19 07:00 138/68 12/12/19 07:00 138/68 12/12/19 07:00 138/68 12/12/19 07:00 138/68 12/12/19 07:00 119 24 138/68 (91) 96 12/12/19 06:30 122 24 124/66 (85) 96 12/12/19 06:30 119 26 12/12/19 06:00 25 183/65 Mechanical Ventilator 60 12/12/19 06:00 25 183/65 Mechanical Ventilator 60 12/12/19 06:00 25 183/65 Mechanical Ventilator 60 12/12/19 06:00 25 183/65 Mechanical Ventilator 60 12/12/19 06:00 183/65 12/12/19 06:00 183/65 12/12/19 06:00 183/65 12/12/19 06:00 183/65 12/12/19 06:00 122 26 183/65 (104) 96 12/12/19 05:30 123 26 138/77 (97) 96 12/12/19 05:00 124 26 142/77 (98) 96 12/12/19 05:00 25 146/64 Mechanical Ventilator 60 12/12/19 05:00 146/64 12/12/19 04:30 127 26 149/64 (92) 96 12/12/19 04:00 126 12/12/19 04:00 26 142/70 Mechanical Ventilator 60 12/12/19 04:00 142/70 12/12/19 04:00 100.4 127 26 146/68 (94) 95 12/12/19 04:00 Mechanical Ventilator 12/12/19 03:30 125 28 60 12/12/19 03:30 126 24 132/68 (89) 99 12/12/19 03:00 126 24 131/71 (91) 99 12/12/19 03:00 25 131/77 Mechanical Ventilator 60 12/12/19 03:00 131/71 12/12/19 02:30 127 24 124/66 (85) 99 12/12/19 02:00 129 24 127/67 (87) 99 12/12/19 02:00 26 127/67 Mechanical Ventilator 80 12/12/19 02:00 126/67 12/12/19 01:39 128 108/69 12/12/19 01:30 129 24 114/62 (79) 99 12/12/19 01:00 24 94/44 Mechanical Ventilator 80 12/12/19 01:00 94/44 12/12/19 01:00 129 24 94/44 (61) 99 12/12/19 00:30 129 26 120/62 (81) 98 12/12/19 00:21 106/73 12/12/19 00:00 132 12/12/19 00:00 Mechanical Ventilator 12/12/19 00:00 24 106/73 Mechanical Ventilator 100 12/12/19 00:00 99.8 132 26 100/63 (75) 98 12/11/19 23:30 132 26 100/63 (75) 98 12/11/19 23:21 133 29 80 12/11/19 23:02 27 96/57 Mechanical Ventilator 80 12/11/19 23:00 133 31 93/57 (69) 100 12/11/19 22:32 48 103/61 Mechanical Ventilator 12/11/19 22:30 135 46 93/57 (69) 99 12/11/19 22:00 137 46 103/61 (75) 99 12/11/19 22:00 100/59 12/11/19 21:57 135 91/54 12/11/19 21:30 134 46 91/54 (66) 98 12/11/19 21:00 134 46 98/54 (69) 98 12/11/19 21:00 93/53 12/11/19 20:30 134 41 99/47 (64) 96 12/11/19 20:00 87/52 12/11/19 20:00 98.6 134 41 117/81 (93) 96 12/11/19 20:00 132 12/11/19 20:00 Mechanical Ventilator 12/11/19 20:00 133 41 87/52 (64) 96 12/11/19 19:31 85/53 12/11/19 19:30 99.0 130 39 85/53 (64) 96 12/11/19 19:30 134 44 100 12/11/19 19:00 85/53 12/11/19 19:00 129 36 85/53 (64) 96 12/11/19 18:45 82/41 12/11/19 18:45 128 38 82/41 (55) 95 12/11/19 18:30 97/55 12/11/19 18:30 124 38 97/55 (69) 94 12/11/19 18:18 116 86/52 12/11/19 18:18 86/52 12/11/19 18:15 123 34 93/57 (69) 95 12/11/19 18:00 120 28 62/41 (48) 96 12/11/19 17:45 119 28 78/47 (57) 97 12/11/19 17:30 119 27 55/30 (38) 96 12/11/19 17:30 119 27 100 12/11/19 17:15 118 32 88/68 (75) 95 12/11/19 17:00 117 32 96/75 (82) 93 12/11/19 16:45 115 31 65/43 (50) 92 12/11/19 16:30 114 31 130/75 (93) 90 12/11/19 16:30 Mechanical Ventilator 12/11/19 16:15 114 30 110/63 (79) 89 12/11/19 16:00 Mechanical Ventilator 12/11/19 16:00 97.4 105 29 110/63 (79) 88 12/11/19 16:00 100 12/11/19 15:56 41/32 12/11/19 15:45 111 26 110/63 (79) 88 12/11/19 15:30 106 28 89 Mechanical Ventilator 100 12/11/19 15:30 106 28 100 12/11/19 15:30 88/33 12/11/19 15:30 97.9 103 26 88/33 92 Mechanical Ventilator 100 12/11/19 14:40 66/35 Intake and Output 12/11/19 12/12/19 19:00 07:00 Intake Total 1348.20 ml 4769.645 ml Output Total 1001 ml 1260 ml Balance 347.20 ml 3509.645 ml Intake IV Total 1348.20 ml 4769.645 ml Output Urine Total 501 ml 1160 ml Gastric Drainage Total 500 ml 100 ml Laboratory Tests Test 12/11/19 14:45 12/11/19 20:15 12/11/19 20:49 12/12/19 02:00 Sodium Level 131 MMOL/L (136-145) #L 137 MMOL/L (136-145) 142 MMOL/L (136-145) Potassium Level 4.6 MMOL/L (3.5-5.1) 3.9 MMOL/L (3.5-5.1) 3.0 MMOL/L (3.5-5.1) L Chloride Level 94 MMOL/L (98-107) L 101 MMOL/L (98-107) 107 MMOL/L (98-107) Carbon Dioxide Level 13 MMOL/L (21-32) L 17 MMOL/L (21-32) L 21 MMOL/L (21-32) Anion Gap 24 mmol/L (5-15) H 19 mmol/L (5-15) H 14 mmol/L (5-15) Blood Urea Nitrogen 77 mg/dL (7-18) H 78 mg/dL (7-18) H 65 mg/dL (7-18) H Creatinine 2.8 MG/DL (0.55-1.30) H 2.5 MG/DL (0.55-1.30) H 2.0 MG/DL (0.55-1.30) H Estimat Glomerular Filtration Rate 21.1 mL/min (>60) 24.0 mL/min (>60) 31.0 mL/min (>60) Glucose Level 992 MG/DL (74-106) #*H 605 MG/DL (74-106) #*H 359 MG/DL (74-106) #H Calcium Level 7.5 MG/DL (8.5-10.1) L 7.6 MG/DL (8.5-10.1) L 8.1 MG/DL (8.5-10.1) L Total Bilirubin 0.4 MG/DL (0.2-1.0) Aspartate Amino Transf (AST/SGOT) 53 U/L (15-37) H Alanine Aminotransferase (ALT/SGPT) 28 U/L (12-78) Alkaline Phosphatase 72 U/L (46-116) Total Protein 4.1 G/DL (6.4-8.2) #L Albumin 1.3 G/DL (3.4-5.0) L Globulin 2.8 g/dL Hemoglobin A1c > 16.0 % (4.3-6.0) H Lactic Acid Level 4.40 mmol/L (0.4-2.0) H 4.40 mmol/L (0.4-2.0) H Arterial Blood pH 7.374 (7.350-7.450) Arterial Blood Partial Pressure CO2 26.5 mmHg (35.0-45.0) L Arterial Blood Partial Pressure O2 90.3 mmHg (75.0-100.0) Arterial Blood HCO3 15.1 mmol/L (22.0-26.0) *L Arterial Blood Oxygen Saturation 96.3 % (95-100) Arterial Blood Base Excess -8.9 (-2-2) L Scotty Test Positive Test 12/12/19 07:32 12/12/19 08:00 12/12/19 10:09 12/12/19 10:50 Arterial Blood pH 7.433 (7.350-7.450) Arterial Blood Partial Pressure CO2 30.4 mmHg (35.0-45.0) L Arterial Blood Partial Pressure O2 73.3 mmHg (75.0-100.0) L Arterial Blood HCO3 19.9 mmol/L (22.0-26.0) L Arterial Blood Oxygen Saturation 93.9 % (95-100) L Arterial Blood Base Excess -3.9 (-2-2) L Scotty Test Positive Sodium Level 142 MMOL/L (136-145) Potassium Level 3.0 MMOL/L (3.5-5.1) L Chloride Level 109 MMOL/L (98-107) H Carbon Dioxide Level 21 MMOL/L (21-32) Anion Gap 12 mmol/L (5-15) Blood Urea Nitrogen 43 mg/dL (7-18) H Creatinine 1.3 MG/DL (0.55-1.30) Estimat Glomerular Filtration Rate 51.0 mL/min (>60) Glucose Level 197 MG/DL (74-106) #H Lactic Acid Level 2.90 mmol/L (0.4-2.0) H 1.60 mmol/L (0.66-2.22) Calcium Level 7.8 MG/DL (8.5-10.1) L Phosphorus Level 0.7 MG/DL (2.5-4.9) *L Magnesium Level 1.6 MG/DL (1.8-2.4) L Urine Color Pale yellow Urine Appearance Clear Urine pH 6 (4.5-8.0) Urine Specific [place] 1.005 (1.005-1.035) Urine Protein 3+ (NEGATIVE) H Urine Glucose (UA) 2+ (NEGATIVE) H Urine Ketones 1+ (NEGATIVE) H Urine Blood 5+ (NEGATIVE) H Urine Nitrite Negative (NEGATIVE) Urine Bilirubin Negative (NEGATIVE) Urine Urobilinogen Normal MG/DL (0.0-1.0) Urine Leukocyte Esterase Negative (NEGATIVE) Urine RBC 5-10 /HPF (0 - 2) H Urine WBC 0-2 /HPF (0 - 2) Urine Squamous Epithelial Cells Few /LPF (NONE/OCC) Urine Bacteria Occasional /HPF (NONE) Urine Random Sodium 125 mmol/L (20-110) H White Blood Count 14.0 K/UL (4.8-10.8) H Red Blood Count 2.45 M/UL (4.20-5.40) L Hemoglobin 8.0 G/DL (12.0-16.0) L Hematocrit 21.1 % (37.0-47.0) #L Mean Corpuscular Volume 86 FL (80-99) # Mean Corpuscular Hemoglobin 32.6 PG (27.0-31.0) H Mean Corpuscular Hemoglobin Concent 35.3 G/DL (32.0-36.0) Red Cell Distribution Width 12.0 % (11.6-14.8) Platelet Count 132 K/UL (150-450) L Mean Platelet Volume 9.6 FL (6.5-10.1) Neutrophils (%) (Auto) 81.2 % (45.0-75.0) H Lymphocytes (%) (Auto) 15.6 % (20.0-45.0) L Monocytes (%) (Auto) 2.0 % (1.0-10.0) Eosinophils (%) (Auto) 0.3 % (0.0-3.0) Basophils (%) (Auto) 0.9 % (0.0-2.0) Uric Acid 6.6 MG/DL (2.6-7.2) Total Bilirubin 0.2 MG/DL (0.2-1.0) Direct Bilirubin < 0.1 MG/DL (0.0-0.3) Gamma Glutamyl Transpeptidase 20 U/L (5-85) Aspartate Amino Transf (AST/SGOT) 238 U/L (15-37) H Alanine Aminotransferase (ALT/SGPT) 89 U/L (12-78) H Alkaline Phosphatase 61 U/L (46-116) Lactate Dehydrogenase 437 U/L (81-234) H C-Reactive Protein, Quantitative 42.5 mg/dL (0.00-0.90) H Pro-B-Type Natriuretic Peptide 3714 pg/mL (0-125) H Total Protein 4.5 G/DL (6.4-8.2) L Albumin 1.3 G/DL (3.4-5.0) L Gerardo Dyer MD December 12, 2019 14:37
[2019-12-12] MEDS ORDERED: NS 275ml ONE (15:53)
[2019-12-12] MEDS ORDERED: Tubing IV Secondary IV ONE (15:53)
[2019-12-12] MEDS: Dyna-Hex 2% Top Sol 2oz TOPIC SCH (20:15)
--- NOTE | 2019-12-12 20:30 | Progress Note ---
DATE: 12/12/2019 SUBJECTIVE: This is a 58-year-old female, nonverbal, and lethargic. Had cardiopulmonary arrest placed on ventilator. Patient is currently on Levophed as well as epinephrine drip. Patient also has DKA, which is resolving and patient is slightly more responsive. PHYSICAL EXAMINATION: VITAL SIGNS: Blood pressure 103/47, pulse 124, T-max 101.7. HEENT: NAD. CHEST: Bilateral decreased breath sounds. CARDIOVASCULAR: Regular rhythm. No gallop. No murmur. ABDOMEN: Soft. EXTREMITIES: CCE. NEUROLOGICAL: Generalized weakness. LABORATORY DATA: White counts are 15,000, hemoglobin 8, hematocrit 21, platelets are 132. Chemistry panel, potassium 3, BUN 43, creatinine 1.3, glucose is 142. Urine rbc is negative. Chest x-ray showing possible pneumonia. ASSESSMENT: 1. Anemia. 2. Sepsis. 3. DKA. 4. Renal insufficiency is improving. PLAN: We will continue Zosyn. Continue Reglan. Continue milk of magnesia. Potassium replacement. We will order stool occult blood x2 and CBC tomorrow. Type and cross. Transfuse 1 unit if hemoglobin less than 8. SCDs for DVT prophylaxis. Her last Accu-Chek was 100 and patient is in ICU. Frank Pinzon M.D. DR: SUDHAKAR JOB#: [id number] CC:
--- NOTE | 2019-12-12 21:29 | Consultation ---
DATE OF CONSULTATION: 12/12/2019 CARDIOLOGY CONSULTATION CONSULTING PHYSICIAN: Gerardo Dyer MD. REFERRING PHYSICIAN: Frank Pinzon MD. REASON FOR CONSULTATION: Hypotension. HISTORY OF PRESENT ILLNESS: The patient is a 58-year-old lady who was brought to the emergency for generalized weakness. The patient was found to be in respiratory distress and cardiopulmonary arrest and was resuscitated, was found to have diabetic ketoacidosis . The patient was put on ventilator as well as a diabetic ketoacidosis protocol. The patient subsequently had coffee-ground emesis and again coded. At the time of my evaluation, the patient is hypotensive and is on three pressors including phenylephrine, Levophed, and norepinephrine. REVIEW OF SYSTEMS: Cannot be obtained. PAST MEDICAL HISTORY: 1. Hypertension. 2. Diabetes. MEDICATIONS: Per reconciliation. PHYSICAL EXAMINATION: VITAL SIGNS: Show blood pressure of 103/47, pulse 124, respirations 18, temperature 101.2. HEAD AND NECK: She is orally intubated. LUNGS: Coarse rhonchi. CARDIOVASCULAR: Irregular S1-S2 and tachycardic. ABDOMEN: Soft. EXTREMITIES: No pitting edema. LABORATORY AND DIAGNOSTIC DATA: Labs show white count of 14, hemoglobin of 8, hematocrit 21, and platelet count is 132. Sodium is 142, potassium 3.0, BUN 43, creatinine 1.3, glucose is 197, initially was 992. ASSESSMENT/PLAN: 1. Septic shock. The patient is on three pressors. Her echocardiogram showed ejection fraction of 60%. EKG shows sinus tachycardia with no acute ST-T wave abnormalities. The patient already on broad-spectrum IV antibiotic as well. 2. Respiratory failure, on the ventilator, likely with aspiration pneumonia. The patient with coffee-grounds emesis. 3. History of hypertension, currently hypotensive. 4. Coffee-ground emesis. 5. Diabetic ketoacidosis on insulin. Thank you very much for allowing me to participate in the care of this patient. Please do not hesitate to contact me for any questions regarding my evaluation. Sincerely, Gerardo Dyer M.D. DR: Clover JOB#: [id number] CC:
[2019-12-13] VITALS (85 sets, daily range): BP systolic 71–140; BP diastolic 46–97
[2019-12-13] MEDS: D5NS w/KCl 40mEq 1000ml 1,000 ML IV SCH ×2 (00:54→14:05)
[2019-12-13] MEDS ORDERED: NovoLOG Insulin Flexpen SUBQ SCH ×2 (02:00→06:30)
[2019-12-13] MEDS: NovoLOG Insulin Flexpen SUBQ SCH ×5 (02:00→21:16)
[2019-12-13] MEDS: fentaNYL 2500mcg/NS 250ml 250 ML IV SCH ×2 (02:21→21:45)
[2019-12-13] MEDS: Acetaminophen 650mg/20.3ml GT PRN ×4 (03:03→20:41)
[2019-12-13 05:27] LABS: HEMATOCRIT 17.1 % (37.0-47.0); MEAN CORPUSCULAR VOLUME 86 FL (80-99); PLATELET COUNT 99 K/UL (150-450); RED BLOOD COUNT 1.98 M/UL (4.20-5.40); RED CELL DISTRIBUTION WIDTH 12.2 % (11.6-14.8); WHITE BLOOD COUNT 10.6 K/UL (4.8-10.8)
[2019-12-13 05:42] LABS: HEMOGLOBIN 6.4 G/DL (12.0-16.0)
[2019-12-13 05:43] LABS: ALANINE AMINOTRANSFERASE 114 U/L (12-78); ALBUMIN 1.7 G/DL (3.4-5.0); ALBUMIN/GLOBULIN RATIO 0.5 (1.0-2.7); ALKALINE PHOSPHATASE 65 U/L (46-116); AMYLASE 208 U/L (25-115); ANION GAP 19 mmol/L (5-15); ASPARTATE AMINO TRANSFERASE 266 U/L (15-37); BILIRUBIN,TOTAL 0.5 MG/DL (0.2-1.0); BLOOD UREA NITROGEN 13 mg/dL (7-18); CALCIUM 7.8 MG/DL (8.5-10.1); CARBON DIOXIDE 16 MMOL/L (21-32); CHLORIDE 107 MMOL/L (98-107); CREATININE 0.8 MG/DL (0.55-1.30); POTASSIUM 2.9 MMOL/L (3.5-5.1); SODIUM 142 MMOL/L (136-145)
[2019-12-13 06:01] LABS: IRON 10 ug/dL (50-175); TOTAL IRON BINDING CAPACITY 87 ug/dL (250-450)
[2019-12-13 06:02] LABS: % IRON SATURATION 11 % (15-50)
[2019-12-13] MEDS: Metoclopramide 10mg/2ml Inj IVP SCH ×3 (06:10→22:00)
[2019-12-13] MEDS: Zoysn 3.37gm in NS 100ML IVPB SCH ×3 (06:10→21:14)
[2019-12-13 06:14] LABS: FERRITIN 1186 NG/ML (8-388)
[2019-12-13 07:56] LABS: PHOSPHORUS 1.7 MG/DL (2.5-4.9)
[2019-12-13] MEDS: Pantoprazole Inj IVP SCH ×2 (08:00→20:41)
--- NOTE | 2019-12-13 08:08 | General Progress Note ---
Assessment/Plan Problem List: (1) DKA (diabetic ketoacidoses) (2) Cardiac arrest (3) Coffee ground emesis (4) Abnormal TSH Assessment/Plan: add Levemir 12 units bid continue Novolog 4 units every 4 hours repeat TSH, add Free T4 and T3 Subjective ROS Limited/Unobtainable: Yes Allergies: Coded Allergies: No Known Allergies (Unverified , 12/11/19) Subjective evaluated by Dr Hammond yesterday intubated in ICU Objective Last 24 Hour Vital Signs Date Time Temp Pulse Resp B/P (MAP) Pulse Ox O2 Delivery O2 Flow Rate FiO2 12/13/19 07:00 24 105/61 Mechanical Ventilator 60 12/13/19 07:00 130/60 12/13/19 06:30 120 26 12/13/19 06:30 122 27 110/59 (76) 100 12/13/19 06:10 105/61 12/13/19 06:00 112 23 98/46 (63) 100 12/13/19 05:30 118 25 104/54 (71) 100 12/13/19 05:00 117 23 108/49 (68) 100 12/13/19 05:00 24 111/61 Mechanical Ventilator 60 12/13/19 05:00 111/61 12/13/19 04:30 114 26 91/50 (64) 100 12/13/19 04:15 122 25 117/52 (73) 100 12/13/19 04:00 115 12/13/19 04:00 24 117/52 Mechanical Ventilator 60 12/13/19 04:00 117/52 12/13/19 04:00 99.7 119 26 103/52 (69) 100 12/13/19 04:00 Mechanical Ventilator 12/13/19 03:35 100.8 12/13/19 03:30 118 26 60 12/13/19 03:30 125 25 109/47 (67) 100 12/13/19 03:15 115 25 96/52 (67) 100 12/13/19 03:00 26 96/52 Mechanical Ventilator 60 12/13/19 03:00 96/52 12/13/19 03:00 102.0 118 27 103/51 (68) 100 12/13/19 02:30 120 26 103/73 (83) 100 12/13/19 02:21 24 102/53 Mechanical Ventilator 60 12/13/19 02:00 102/53 12/13/19 02:00 116 26 106/51 (69) 100 12/13/19 01:30 116 26 100/53 (69) 100 12/13/19 01:00 115 26 103/50 (67) 100 12/13/19 01:00 26 104/55 Mechanical Ventilator 60 12/13/19 01:00 104/56 12/13/19 00:30 110 23 95/47 (63) 100 12/13/19 00:15 113 23 105/50 (68) 100 12/13/19 00:00 115 26 113/55 (74) 100 12/13/19 00:00 114 12/13/19 00:00 24 112/50 Mechanical Ventilator 60 12/13/19 00:00 105/50 12/13/19 00:00 Mechanical Ventilator 12/12/19 23:45 114 25 104/52 (69) 99 12/12/19 23:30 113 25 60 12/12/19 23:30 112 24 107/52 (70) 100 12/12/19 23:06 24 104/52 Mechanical Ventilator 60 12/12/19 23:06 104/52 12/12/19 23:02 114 26 111/60 (77) 99 12/12/19 23:00 108 24 100 12/12/19 22:30 108 24 117/57 (77) 99 12/12/19 22:13 111/70 12/12/19 22:00 114 21 111/70 (84) 100 12/12/19 22:00 24 111/70 Mechanical Ventilator 60 12/12/19 21:49 105 109/61 12/12/19 21:30 104 22 100/54 (69) 99 12/12/19 21:00 22 110/57 Mechanical Ventilator 60 12/12/19 21:00 110/57 12/12/19 21:00 104 22 117/59 (78) 99 12/12/19 20:30 103 23 179/165 (170) 99 12/12/19 20:21 132/69 12/12/19 20:00 100.0 107 27 163/71 (101) 98 12/12/19 20:00 Mechanical Ventilator 12/12/19 20:00 103 12/12/19 20:00 23 132/69 Mechanical Ventilator 60 12/12/19 20:00 132/69 12/12/19 19:30 101 23 60 12/12/19 19:30 98 23 139/72 (94) 100 12/12/19 19:00 112 25 115/58 (77) 99 12/12/19 19:00 25 100/65 Mechanical Ventilator 60 12/12/19 19:00 100/65 12/12/19 19:00 100 12/12/19 18:45 107 25 115/58 (77) 99 12/12/19 18:30 98.6 108 25 120/63 (82) 98 12/12/19 18:00 23 118/59 Mechanical Ventilator 60 12/12/19 18:00 118/59 12/12/19 18:00 97 22 118/59 (78) 99 12/12/19 17:30 98 22 114/74 (87) 99 12/12/19 17:00 97 22 115/59 (77) 100 12/12/19 17:00 22 115/59 Mechanical Ventilator 60 12/12/19 17:00 115/59 12/12/19 16:30 97 22 119/58 (78) 99 12/12/19 16:00 98 12/12/19 16:00 99.9 104 22 107/54 (71) 99 12/12/19 16:00 Mechanical Ventilator 12/12/19 16:00 22 116/56 Mechanical Ventilator 60 12/12/19 16:00 115/58 12/12/19 15:45 106 23 96/50 (65) 99 12/12/19 15:45 24 98/48 Mechanical Ventilator 60 12/12/19 15:30 108 22 98/48 (65) 99 12/12/19 15:15 109 23 105/51 (69) 99 12/12/19 15:00 109 24 110/64 (79) 99 12/12/19 15:00 23 105/51 Mechanical Ventilator 60 12/12/19 15:00 105/51 12/12/19 14:41 122 26 60 12/12/19 14:30 109 24 122/64 (83) 100 12/12/19 14:30 126/65 12/12/19 14:26 109 23 126/65 (85) 100 12/12/19 14:15 77/40 12/12/19 14:15 123 24 87/48 (61) 99 12/12/19 14:02 126 26 93/43 (60) 99 12/12/19 14:00 24 93/43 Mechanical Ventilator 60 12/12/19 14:00 93/43 12/12/19 14:00 125 23 180/110 (133) 98 12/12/19 13:45 126 26 228/181 (197) 99 12/12/19 13:45 180/110 12/12/19 13:44 100.1 12/12/19 13:30 198/170 12/12/19 13:30 128 26 201/185 (190) 97 12/12/19 13:15 100.1 128 29 182/87 (118) 98 12/12/19 13:15 201/185 12/12/19 13:00 124 24 103/47 (65) 99 12/12/19 13:00 25 103/47 Mechanical Ventilator 60 12/12/19 13:00 103/47 12/12/19 12:45 121 24 114/42 (66) 99 12/12/19 12:30 119 25 116/55 (75) 98 12/12/19 12:15 119 25 117/60 (79) 98 12/12/19 12:00 Mechanical Ventilator 12/12/19 12:00 109 12/12/19 12:00 25 115/58 Mechanical Ventilator 60 12/12/19 12:00 115/58 12/12/19 12:00 101.7 118 25 115/58 (77) 97 12/12/19 11:30 120 25 106/70 (82) 97 12/12/19 11:15 117 24 116/63 (80) 97 12/12/19 11:00 24 116/63 Mechanical Ventilator 60 12/12/19 11:00 116/63 12/12/19 11:00 118 24 109/54 (72) 97 12/12/19 10:45 117 24 101/68 (79) 98 12/12/19 10:44 117 25 105/59 (74) 98 12/12/19 10:39 117 24 60 12/12/19 10:30 120 23 87/41 (56) 99 12/12/19 10:15 121 25 110/59 (76) 98 12/12/19 10:11 100/54 12/12/19 10:00 24 110/59 Mechanical Ventilator 60 12/12/19 10:00 110/59 12/12/19 10:00 118 24 100/54 (69) 98 12/12/19 09:45 118 22 124/62 (82) 99 12/12/19 09:30 122 24 60 12/12/19 09:30 121 25 107/56 (73) 98 12/12/19 09:15 119 24 109/76 (87) 98 12/12/19 09:10 120 104/51 12/12/19 09:00 24 109/76 Mechanical Ventilator 60 12/12/19 09:00 124/62 12/12/19 09:00 123 25 104/51 (68) 97 12/12/19 08:45 122 24 110/53 (72) 98 12/12/19 08:30 120 24 120/48 (72) 97 12/12/19 08:15 117 23 136/71 (92) 97 Intake and Output 12/12/19 12/13/19 19:00 07:00 Intake Total 3508.1025 ml 1585.75 ml Output Total 2000 ml 1120 ml Balance 1508.1025 ml 465.75 ml Intake IV Total 3508.1025 ml 1585.75 ml Output Urine Total 2000 ml 1120 ml Laboratory Tests 12/12/19 10:09: Urine Color Pale yellow, Urine Appearance Clear, Urine pH 6, Urine Specific [place] 1.005, Urine Protein 3+H, Urine Glucose (UA) 2+H, Urine Ketones 1+H, Urine Blood 5+H, Urine Nitrite Negative, Urine Bilirubin Negative, Urine Urobilinogen Normal, Urine Leukocyte Esterase Negative, Urine RBC 5-10H, Urine WBC 0-2, Urine Squamous Epithelial Cells Few, Urine Bacteria Occasional, Urine Random Sodium 125H 12/12/19 10:50: White Blood Count 14.0H, Red Blood Count 2.45L, Hemoglobin 8.0L, Hematocrit 21.1 #L, Mean Corpuscular Volume 86#, Mean Corpuscular Hemoglobin 32.6H, Mean Corpuscular Hemoglobin Concent 35.3, Red Cell Distribution Width 12.0, Platelet Count 132L, Mean Platelet Volume 9.6, Neutrophils (%) (Auto) 81.2H, Lymphocytes (%) (Auto) 15.6L, Monocytes (%) (Auto) 2.0, Eosinophils (%) (Auto) 0.3, Basophils (%) (Auto) 0.9, Lactic Acid Level 1.60, Uric Acid 6.6, Total Bilirubin 0.2, Direct Bilirubin < 0.1, Gamma Glutamyl Transpeptidase 20, Aspartate Amino Transf (AST/SGOT) 238H, Alanine Aminotransferase (ALT/SGPT) 89H , Alkaline Phosphatase 61, Lactate Dehydrogenase 437H, C-Reactive Protein, Quantitative 42.5H, Pro-B-Type Natriuretic Peptide 3714H, Total Protein 4.5L, Albumin 1.3L 12/12/19 20:00: Troponin I 0.087H 12/13/19 03:20: White Blood Count 10.6, Red Blood Count 1.98L, Hemoglobin 6.4*L, Hematocrit 17.1L, Mean Corpuscular Volume 86, Mean Corpuscular Hemoglobin 32.2H, Mean Corpuscular Hemoglobin Concent 37.3H, Red Cell Distribution Width 12.2, Platelet Count 99L, Mean Platelet Volume 8.8, Neutrophils (%) (Auto) , Lymphocytes (%) (Auto) , Monocytes (%) (Auto) , Eosinophils (%) (Auto) , Basophils (%) (Auto) , Total Bilirubin 0.5, Aspartate Amino Transf (AST/SGOT) 266H, Alanine Aminotransferase (ALT/SGPT) 114H, Alkaline Phosphatase 65, Total Protein 4.8L, Albumin 1.7L, Troponin I 0.102H, Neutrophils % (Manual) [Pending] , Lymphocytes % (Manual) [Pending], Platelet Estimate [Pending], Platelet Morphology [Pending], Sodium Level 142, Potassium Level 2.9L, Chloride Level 107 , Carbon Dioxide Level 16L, Anion Gap 19H, Blood Urea Nitrogen 13, Creatinine 0.8, Estimat Glomerular Filtration Rate > 60, Glucose Level 265H, Hemoglobin A1c [Pending], Calcium Level 7.8L, Phosphorus Level 1.7L, Magnesium Level 2.3, Iron Level 10L, Total Iron Binding Capacity 87L, Percent Iron Saturation 11L, Unsaturated Iron Binding 77L, Ferritin 1186H, Globulin 3.1, Albumin/Globulin Ratio 0.5L, Amylase Level 208H, Lipase 728H, Vitamin B12 Level > 2000H, Folate 17.0, Thyroid Stimulating Hormone (TSH) 0.182L Height (Feet): 5 Height (Inches): 5.00 Weight (Pounds): 149 General Appearance: severe distress EENT: other - ETT Neck: normal alignment Cardiovascular: tachycardia Respiratory/Chest: decreased breath sounds Abdomen: normal bowel sounds Pelvis: normal external exam Objective Item Value Date Time Bedside Blood Glucose 295 mg/dl H 12/13/19 0611 Bedside Blood Glucose 207 mg/dl H 12/13/19 0200 Bedside Blood Glucose 180 mg/dl H 12/12/19 2217 Bedside Blood Glucose 181 mg/dl H 12/12/19 1800 Bedside Blood Glucose 187 mg/dl H 12/12/19 1400 Bedside Blood Glucose 160 mg/dl H 12/12/19 1000 Bedside Blood Glucose Critically High Result 12/12/19 0600 Stef Ortega MD December 13, 2019 08:08
[2019-12-13] MEDS ORDERED: Potassium Phosphate 20 MM in NS 275 ML IV ONE (09:00)
[2019-12-13] MEDS: Norepinephrine Bitartrate 16 MG in Sodium Chloride 484 ML IV SCH (09:03)
--- NOTE | 2019-12-13 09:13 | Nephrology Progress Note ---
Assessment/Plan Problem List: (1) DEANDRA (acute kidney injury) Assessment: Resolved (2) Hypotension (3) Cardiac arrest (4) DKA (diabetic ketoacidoses) (5) Respiratory distress (6) Coffee ground emesis (7) Electrolyte imbalance Assessment Acute renal failure which probably is superimposed on chronic kidney disease History of diabetes mellitus, most likely diabetic nephropathy. Presents with diabetic ketoacidosis Acute respiratory failure requiring intubation and mechanical ventilation Aspiration pneumonia, upper GI bleed Proteinuria and severe hypoalbuminemia should rule out nephrotic range proteinuria Anemia Electrolyte imbalances Plan Suggestions: 2 units of packed RBCs to be transfused today Hydrate Correct electrolytes Accurate intake and output Monitor renal parameters Avoid nephrotoxic's Anemia work-up Urine studies Keep blood sugar and blood pressure in check Per consultants Discussed with RN Subjective ROS Limited/Unobtainable: Yes Objective Objective Last 24 Hour Vital Signs Date Time Temp Pulse Resp B/P (MAP) Pulse Ox O2 Delivery O2 Flow Rate FiO2 12/13/19 09:03 108/56 12/13/19 08:30 99.5 12/13/19 07:22 125 24 40 12/13/19 07:00 24 105/61 Mechanical Ventilator 60 12/13/19 07:00 130/60 12/13/19 06:30 120 26 12/13/19 06:30 122 27 110/59 (76) 100 12/13/19 06:10 105/61 12/13/19 06:00 112 23 98/46 (63) 100 12/13/19 05:30 118 25 104/54 (71) 100 12/13/19 05:00 117 23 108/49 (68) 100 12/13/19 05:00 24 111/61 Mechanical Ventilator 60 12/13/19 05:00 111/61 12/13/19 04:30 114 26 91/50 (64) 100 12/13/19 04:15 122 25 117/52 (73) 100 12/13/19 04:00 115 12/13/19 04:00 24 117/52 Mechanical Ventilator 60 12/13/19 04:00 117/52 12/13/19 04:00 99.7 119 26 103/52 (69) 100 12/13/19 04:00 Mechanical Ventilator 12/13/19 03:30 118 26 60 12/13/19 03:30 125 25 109/47 (67) 100 12/13/19 03:15 115 25 96/52 (67) 100 12/13/19 03:00 26 96/52 Mechanical Ventilator 60 12/13/19 03:00 96/52 12/13/19 03:00 102.0 118 27 103/51 (68) 100 12/13/19 02:30 120 26 103/73 (83) 100 12/13/19 02:21 24 102/53 Mechanical Ventilator 60 12/13/19 02:00 102/53 12/13/19 02:00 116 26 106/51 (69) 100 12/13/19 01:30 116 26 100/53 (69) 100 12/13/19 01:00 115 26 103/50 (67) 100 12/13/19 01:00 26 104/55 Mechanical Ventilator 60 12/13/19 01:00 104/56 12/13/19 00:30 110 23 95/47 (63) 100 12/13/19 00:15 113 23 105/50 (68) 100 12/13/19 00:00 115 26 113/55 (74) 100 12/13/19 00:00 114 12/13/19 00:00 24 112/50 Mechanical Ventilator 60 12/13/19 00:00 105/50 12/13/19 00:00 Mechanical Ventilator 12/12/19 23:45 114 25 104/52 (69) 99 12/12/19 23:30 113 25 60 12/12/19 23:30 112 24 107/52 (70) 100 12/12/19 23:06 24 104/52 Mechanical Ventilator 60 12/12/19 23:06 104/52 12/12/19 23:02 114 26 111/60 (77) 99 12/12/19 23:00 108 24 100 12/12/19 22:30 108 24 117/57 (77) 99 12/12/19 22:13 111/70 12/12/19 22:00 114 21 111/70 (84) 100 12/12/19 22:00 24 111/70 Mechanical Ventilator 60 12/12/19 21:49 105 109/61 12/12/19 21:30 104 22 100/54 (69) 99 12/12/19 21:00 22 110/57 Mechanical Ventilator 60 12/12/19 21:00 110/57 12/12/19 21:00 104 22 117/59 (78) 99 12/12/19 20:30 103 23 179/165 (170) 99 12/12/19 20:21 132/69 12/12/19 20:00 100.0 107 27 163/71 (101) 98 12/12/19 20:00 Mechanical Ventilator 12/12/19 20:00 103 12/12/19 20:00 23 132/69 Mechanical Ventilator 60 20 20:00 132/69 12/12/19 19:30 101 23 60 12/12/19 19:30 98 23 139/72 (94) 100 12/12/19 19:00 112 25 115/58 (77) 99 12/12/19 19:00 25 100/65 Mechanical Ventilator 60 12/12/19 19:00 100/65 12/12/19 19:00 100 12/12/19 18:45 107 25 115/58 (77) 99 12/12/19 18:30 98.6 108 25 120/63 (82) 98 12/12/19 18:00 23 118/59 Mechanical Ventilator 60 12/12/19 18:00 118/59 12/12/19 18:00 97 22 118/59 (78) 99 12/12/19 17:30 98 22 114/74 (87) 99 12/12/19 17:00 97 22 115/59 (77) 100 12/12/19 17:00 22 115/59 Mechanical Ventilator 60 12/12/19 17:00 115/59 12/12/19 16:30 97 22 119/58 (78) 99 12/12/19 16:00 98 12/12/19 16:00 99.9 104 22 107/54 (71) 99 12/12/19 16:00 Mechanical Ventilator 12/12/19 16:00 22 116/56 Mechanical Ventilator 60 12/12/19 16:00 115/58 12/12/19 15:45 106 23 96/50 (65) 99 12/12/19 15:45 24 98/48 Mechanical Ventilator 60 12/12/19 15:30 108 22 98/48 (65) 99 12/12/19 15:15 109 23 105/51 (69) 99 12/12/19 15:00 109 24 110/64 (79) 99 12/12/19 15:00 23 105/51 Mechanical Ventilator 60 12/12/19 15:00 105/51 12/12/19 14:41 122 26 60 12/12/19 14:30 109 24 122/64 (83) 100 12/12/19 14:30 126/65 12/12/19 14:26 109 23 126/65 (85) 100 12/12/19 14:15 77/40 12/12/19 14:15 123 24 87/48 (61) 99 12/12/19 14:02 126 26 93/43 (60) 99 12/12/19 14:00 24 93/43 Mechanical Ventilator 60 12/12/19 14:00 93/43 12/12/19 14:00 125 23 180/110 (133) 98 12/12/19 13:45 126 26 228/181 (197) 99 12/12/19 13:45 180/110 12/12/19 13:44 100.1 12/12/19 13:30 198/170 12/12/19 13:30 128 26 201/185 (190) 97 12/12/19 13:15 100.1 128 29 182/87 (118) 98 12/12/19 13:15 201/185 12/12/19 13:00 124 24 103/47 (65) 99 12/12/19 13:00 25 103/47 Mechanical Ventilator 60 12/12/19 13:00 103/47 12/12/19 12:45 121 24 114/42 (66) 99 12/12/19 12:30 119 25 116/55 (75) 98 12/12/19 12:15 119 25 117/60 (79) 98 12/12/19 12:00 Mechanical Ventilator 12/12/19 12:00 109 12/12/19 12:00 25 115/58 Mechanical Ventilator 60 12/12/19 12:00 115/58 12/12/19 12:00 101.7 118 25 115/58 (77) 97 12/12/19 11:30 120 25 106/70 (82) 97 12/12/19 11:15 117 24 116/63 (80) 97 12/12/19 11:00 24 116/63 Mechanical Ventilator 60 12/12/19 11:00 116/63 12/12/19 11:00 118 24 109/54 (72) 97 12/12/19 10:45 117 24 101/68 (79) 98 12/12/19 10:44 117 25 105/59 (74) 98 12/12/19 10:39 117 24 60 12/12/19 10:30 120 23 87/41 (56) 99 12/12/19 10:15 121 25 110/59 (76) 98 12/12/19 10:11 100/54 12/12/19 10:00 24 110/59 Mechanical Ventilator 60 12/12/19 10:00 110/59 12/12/19 10:00 118 24 100/54 (69) 98 12/12/19 09:45 118 22 124/62 (82) 99 12/12/19 09:30 122 24 60 12/12/19 09:30 121 25 107/56 (73) 98 12/12/19 09:15 119 24 109/76 (87) 98 Intake and Output 12/12/19 12/13/19 19:00 07:00 Intake Total 3508.1025 ml 1585.75 ml Output Total 2000 ml 1120 ml Balance 1508.1025 ml 465.75 ml Intake IV Total 3508.1025 ml 1585.75 ml Output Urine Total 2000 ml 1120 ml Laboratory Tests 12/12/19 10:09: Urine Color Pale yellow, Urine Appearance Clear, Urine pH 6, Urine Specific [place] 1.005, Urine Protein 3+H, Urine Glucose (UA) 2+H, Urine Ketones 1+H, Urine Blood 5+H, Urine Nitrite Negative, Urine Bilirubin Negative, Urine Urobilinogen Normal, Urine Leukocyte Esterase Negative, Urine RBC 5-10H, Urine WBC 0-2, Urine Squamous Epithelial Cells Few, Urine Bacteria Occasional, Urine Random Sodium 125H 12/12/19 10:50: White Blood Count 14.0H, Red Blood Count 2.45L, Hemoglobin 8.0L, Hematocrit 21.1 #L, Mean Corpuscular Volume 86#, Mean Corpuscular Hemoglobin 32.6H, Mean Corpuscular Hemoglobin Concent 35.3, Red Cell Distribution Width 12.0, Platelet Count 132L, Mean Platelet Volume 9.6, Neutrophils (%) (Auto) 81.2H, Lymphocytes (%) (Auto) 15.6L, Monocytes (%) (Auto) 2.0, Eosinophils (%) (Auto) 0.3, Basophils (%) (Auto) 0.9, Lactic Acid Level 1.60, Uric Acid 6.6, Total Bilirubin 0.2, Direct Bilirubin < 0.1, Gamma Glutamyl Transpeptidase 20, Aspartate Amino Transf (AST/SGOT) 238H, Alanine Aminotransferase (ALT/SGPT) 89H , Alkaline Phosphatase 61, Lactate Dehydrogenase 437H, C-Reactive Protein, Quantitative 42.5H, Pro-B-Type Natriuretic Peptide 3714H, Total Protein 4.5L, Albumin 1.3L 12/12/19 20:00: Troponin I 0.087H 12/13/19 03:20: White Blood Count 10.6, Red Blood Count 1.98L, Hemoglobin 6.4*L, Hematocrit 17.1L, Mean Corpuscular Volume 86, Mean Corpuscular Hemoglobin 32.2H, Mean Corpuscular Hemoglobin Concent 37.3H, Red Cell Distribution Width 12.2, Platelet Count 99L, Mean Platelet Volume 8.8, Neutrophils (%) (Auto) , Lymphocytes (%) (Auto) , Monocytes (%) (Auto) , Eosinophils (%) (Auto) , Basophils (%) (Auto) , Total Bilirubin 0.5, Aspartate Amino Transf (AST/SGOT) 266H, Alanine Aminotransferase (ALT/SGPT) 114H, Alkaline Phosphatase 65, Total Protein 4.8L, Albumin 1.7L, Troponin I 0.102H, Neutrophils % (Manual) [Pending] , Lymphocytes % (Manual) [Pending], Platelet Estimate [Pending], Platelet Morphology [Pending], Sodium Level 142, Potassium Level 2.9L, Chloride Level 107 , Carbon Dioxide Level 16L, Anion Gap 19H, Blood Urea Nitrogen 13, Creatinine 0.8, Estimat Glomerular Filtration Rate > 60, Glucose Level 265H, Hemoglobin A1c [Pending], Calcium Level 7.8L, Phosphorus Level 1.7L, Magnesium Level 2.3, Iron Level 10L, Total Iron Binding Capacity 87L, Percent Iron Saturation 11L, Unsaturated Iron Binding 77L, Ferritin 1186H, Globulin 3.1, Albumin/Globulin Ratio 0.5L, Amylase Level 208H, Lipase 728H, Vitamin B12 Level > 2000H, Folate 17.0, Thyroid Stimulating Hormone (TSH) [Pending], Free Thyroxine [Pending], Free Triiodothyronine [Pending] 12/13/19 07:45: Arterial Blood pH 7.359, Arterial Blood Partial Pressure CO2 30.1L, Arterial Blood Partial Pressure O2 255.9H, Arterial Blood HCO3 16.6*L, Arterial Blood Oxygen Saturation 98.9, Arterial Blood Base Excess -8.1L, Scotty Test Positive Height (Feet): 5 Height (Inches): 5.00 Weight (Pounds): 149 General Appearance: no apparent distress, lethargic EENT: other Cardiovascular: tachycardia Respiratory/Chest: decreased breath sounds Abdomen: distended Don Ventura MD December 13, 2019 09:13
--- NOTE | 2019-12-13 09:43 | Pulmonology Progress Note ---
Subjective ROS Limited/Unobtainable: Yes Interval Events: Remains intubated Constitutional: Reports: no symptoms HEENT: Repors: no symptoms Respiratory: Reports: no symptoms Cardiovascular: Reports: no symptoms Gastrointestinal/Abdominal: Reports: no symptoms Genitourinary: Reports: no symptoms Allergies: Coded Allergies: No Known Allergies (Unverified , 12/11/19) Objective Last 24 Hour Vital Signs Date Time Temp Pulse Resp B/P (MAP) Pulse Ox O2 Delivery O2 Flow Rate FiO2 12/13/19 09:03 108/56 12/13/19 08:30 99.5 12/13/19 07:22 125 24 40 12/13/19 07:00 24 105/61 Mechanical Ventilator 60 12/13/19 07:00 130/60 12/13/19 06:30 120 26 12/13/19 06:30 122 27 110/59 (76) 100 12/13/19 06:10 105/61 12/13/19 06:00 112 23 98/46 (63) 100 12/13/19 05:30 118 25 104/54 (71) 100 12/13/19 05:00 117 23 108/49 (68) 100 12/13/19 05:00 24 111/61 Mechanical Ventilator 60 12/13/19 05:00 111/61 12/13/19 04:30 114 26 91/50 (64) 100 12/13/19 04:15 122 25 117/52 (73) 100 12/13/19 04:00 115 12/13/19 04:00 24 117/52 Mechanical Ventilator 60 12/13/19 04:00 117/52 12/13/19 04:00 99.7 119 26 103/52 (69) 100 12/13/19 04:00 Mechanical Ventilator 12/13/19 03:30 118 26 60 12/13/19 03:30 125 25 109/47 (67) 100 12/13/19 03:15 115 25 96/52 (67) 100 12/13/19 03:00 26 96/52 Mechanical Ventilator 60 12/13/19 03:00 96/52 12/13/19 03:00 102.0 118 27 103/51 (68) 100 12/13/19 02:30 120 26 103/73 (83) 100 12/13/19 02:21 24 102/53 Mechanical Ventilator 60 12/13/19 02:00 102/53 12/13/19 02:00 116 26 106/51 (69) 100 12/13/19 01:30 116 26 100/53 (69) 100 12/13/19 01:00 115 26 103/50 (67) 100 12/13/19 01:00 26 104/55 Mechanical Ventilator 60 12/13/19 01:00 104/56 12/13/19 00:30 110 23 95/47 (63) 100 12/13/19 00:15 113 23 105/50 (68) 100 12/13/19 00:00 115 26 113/55 (74) 100 12/13/19 00:00 114 12/13/19 00:00 24 112/50 Mechanical Ventilator 60 12/13/19 00:00 105/50 12/13/19 00:00 Mechanical Ventilator 12/12/19 23:45 114 25 104/52 (69) 99 12/12/19 23:30 113 25 60 12/12/19 23:30 112 24 107/52 (70) 100 12/12/19 23:06 24 104/52 Mechanical Ventilator 60 12/12/19 23:06 104/52 12/12/19 23:02 114 26 111/60 (77) 99 12/12/19 23:00 108 24 100 12/12/19 22:30 108 24 117/57 (77) 99 12/12/19 22:13 111/70 12/12/19 22:00 114 21 111/70 (84) 100 12/12/19 22:00 24 111/70 Mechanical Ventilator 60 12/12/19 21:49 105 109/61 12/12/19 21:30 104 22 100/54 (69) 99 12/12/19 21:00 22 110/57 Mechanical Ventilator 60 12/12/19 21:00 110/57 12/12/19 21:00 104 22 117/59 (78) 99 12/12/19 20:30 103 23 179/165 (170) 99 12/12/19 20:21 132/69 12/12/19 20:00 100.0 107 27 163/71 (101) 98 12/12/19 20:00 Mechanical Ventilator 12/12/19 20:00 103 12/12/19 20:00 23 132/69 Mechanical Ventilator 60 12/12/19 20:00 132/69 12/12/19 19:30 101 23 60 12/12/19 19:30 98 23 139/72 (94) 100 12/12/19 19:00 112 25 115/58 (77) 99 12/12/19 19:00 25 100/65 Mechanical Ventilator 60 12/12/19 19:00 100/65 12/12/19 19:00 100 12/12/19 18:45 107 25 115/58 (77) 99 12/12/19 18:30 98.6 108 25 120/63 (82) 98 12/12/19 18:00 23 118/59 Mechanical Ventilator 60 12/12/19 18:00 118/59 12/12/19 18:00 97 22 118/59 (78) 99 12/12/19 17:30 98 22 114/74 (87) 99 12/12/19 17:00 97 22 115/59 (77) 100 12/12/19 17:00 22 115/59 Mechanical Ventilator 60 12/12/19 17:00 115/59 12/12/19 16:30 97 22 119/58 (78) 99 12/12/19 16:00 98 12/12/19 16:00 99.9 104 22 107/54 (71) 99 12/12/19 16:00 Mechanical Ventilator 12/12/19 16:00 22 116/56 Mechanical Ventilator 60 12/12/19 16:00 115/58 12/12/19 15:45 106 23 96/50 (65) 99 12/12/19 15:45 24 98/48 Mechanical Ventilator 60 12/12/19 15:30 108 22 98/48 (65) 99 12/12/19 15:15 109 23 105/51 (69) 99 12/12/19 15:00 109 24 110/64 (79) 99 12/12/19 15:00 23 105/51 Mechanical Ventilator 60 12/12/19 15:00 105/51 12/12/19 14:41 122 26 60 12/12/19 14:30 109 24 122/64 (83) 100 12/12/19 14:30 126/65 12/12/19 14:26 109 23 126/65 (85) 100 12/12/19 14:15 77/40 12/12/19 14:15 123 24 87/48 (61) 99 12/12/19 14:02 126 26 93/43 (60) 99 12/12/19 14:00 24 93/43 Mechanical Ventilator 60 12/12/19 14:00 93/43 12/12/19 14:00 125 23 180/110 (133) 98 12/12/19 13:45 126 26 228/181 (197) 99 12/12/19 13:45 180/110 12/12/19 13:44 100.1 12/12/19 13:30 198/170 12/12/19 13:30 128 26 201/185 (190) 97 12/12/19 13:15 100.1 128 29 182/87 (118) 98 12/12/19 13:15 201/185 12/12/19 13:00 124 24 103/47 (65) 99 12/12/19 13:00 25 103/47 Mechanical Ventilator 60 12/12/19 13:00 103/47 12/12/19 12:45 121 24 114/42 (66) 99 12/12/19 12:30 119 25 116/55 (75) 98 12/12/19 12:15 119 25 117/60 (79) 98 12/12/19 12:00 Mechanical Ventilator 12/12/19 12:00 109 12/12/19 12:00 25 115/58 Mechanical Ventilator 60 12/12/19 12:00 115/58 12/12/19 12:00 101.7 118 25 115/58 (77) 97 12/12/19 11:30 120 25 106/70 (82) 97 12/12/19 11:15 117 24 116/63 (80) 97 12/12/19 11:00 24 116/63 Mechanical Ventilator 60 12/12/19 11:00 116/63 12/12/19 11:00 118 24 109/54 (72) 97 12/12/19 10:45 117 24 101/68 (79) 98 12/12/19 10:44 117 25 105/59 (74) 98 12/12/19 10:39 117 24 60 12/12/19 10:30 120 23 87/41 (56) 99 12/12/19 10:15 121 25 110/59 (76) 98 12/12/19 10:11 100/54 12/12/19 10:00 24 110/59 Mechanical Ventilator 60 12/12/19 10:00 110/59 12/12/19 10:00 118 24 100/54 (69) 98 12/12/19 09:45 118 22 124/62 (82) 99 Intake and Output 12/12/19 12/13/19 19:00 07:00 Intake Total 3508.1025 ml 1585.75 ml Output Total 2000 ml 1120 ml Balance 1508.1025 ml 465.75 ml Intake IV Total 3508.1025 ml 1585.75 ml Output Urine Total 2000 ml 1120 ml General Appearance: no acute distress HEENT: normocephalic Respiratory: chest wall non-tender, lungs clear Cardiovascular: normal peripheral pulses, normal rate Abdomen: normal bowel sounds Microbiology Date/Time Source Procedure Growth Status 12/11/19 10:30 Blood Blood Culture - Preliminary NO GROWTH AFTER 24 HOURS Resulted 12/11/19 10:15 Blood Blood Culture - Preliminary NO GROWTH AFTER 24 HOURS Resulted Laboratory Tests 12/12/19 10:09: Urine Color Pale yellow, Urine Appearance Clear, Urine pH 6, Urine Specific [place] 1.005, Urine Protein 3+H, Urine Glucose (UA) 2+H, Urine Ketones 1+H, Urine Blood 5+H, Urine Nitrite Negative, Urine Bilirubin Negative, Urine Urobilinogen Normal, Urine Leukocyte Esterase Negative, Urine RBC 5-10H, Urine WBC 0-2, Urine Squamous Epithelial Cells Few, Urine Bacteria Occasional, Urine Random Sodium 125H 12/12/19 10:50: White Blood Count 14.0H, Red Blood Count 2.45L, Hemoglobin 8.0L, Hematocrit 21.1 #L, Mean Corpuscular Volume 86#, Mean Corpuscular Hemoglobin 32.6H, Mean Corpuscular Hemoglobin Concent 35.3, Red Cell Distribution Width 12.0, Platelet Count 132L, Mean Platelet Volume 9.6, Neutrophils (%) (Auto) 81.2H, Lymphocytes (%) (Auto) 15.6L, Monocytes (%) (Auto) 2.0, Eosinophils (%) (Auto) 0.3, Basophils (%) (Auto) 0.9, Lactic Acid Level 1.60, Uric Acid 6.6, Total Bilirubin 0.2, Direct Bilirubin < 0.1, Gamma Glutamyl Transpeptidase 20, Aspartate Amino Transf (AST/SGOT) 238H, Alanine Aminotransferase (ALT/SGPT) 89H , Alkaline Phosphatase 61, Lactate Dehydrogenase 437H, C-Reactive Protein, Quantitative 42.5H, Pro-B-Type Natriuretic Peptide 3714H, Total Protein 4.5L, Albumin 1.3L 12/12/19 20:00: Troponin I 0.087H 12/13/19 03:20: White Blood Count 10.6, Red Blood Count 1.98L, Hemoglobin 6.4*L, Hematocrit 17.1L, Mean Corpuscular Volume 86, Mean Corpuscular Hemoglobin 32.2H, Mean Corpuscular Hemoglobin Concent 37.3H, Red Cell Distribution Width 12.2, Platelet Count 99L, Mean Platelet Volume 8.8, Neutrophils (%) (Auto) , Lymphocytes (%) (Auto) , Monocytes (%) (Auto) , Eosinophils (%) (Auto) , Basophils (%) (Auto) , Total Bilirubin 0.5, Aspartate Amino Transf (AST/SGOT) 266H, Alanine Aminotransferase (ALT/SGPT) 114H, Alkaline Phosphatase 65, Total Protein 4.8L, Albumin 1.7L, Troponin I 0.102H, Differential Total Cells Counted 100, Neutrophils % (Manual) 78H, Lymphocytes % (Manual) 9L, Monocytes % (Manual ) 2, Eosinophils % (Manual) 0, Basophils % (Manual) 0, Band Neutrophils 11H, Platelet Estimate DecreasedL, Platelet Morphology Normal, Hypochromasia 1+, Sodium Level 142, Potassium Level 2.9L, Chloride Level 107, Carbon Dioxide Level 16L, Anion Gap 19H, Blood Urea Nitrogen 13, Creatinine 0.8, Estimat Glomerular Filtration Rate > 60, Glucose Level 265H, Hemoglobin A1c [Pending], Calcium Level 7.8L, Phosphorus Level 1.7L, Magnesium Level 2.3, Iron Level 10L, Total Iron Binding Capacity 87L, Percent Iron Saturation 11L, Unsaturated Iron Binding 77L, Ferritin 1186H, Globulin 3.1, Albumin/Globulin Ratio 0.5L, Amylase Level 208H, Lipase 728H, Vitamin B12 Level > 2000H, Folate 17.0, Thyroid Stimulating Hormone (TSH) 0.176L, Free Thyroxine 1.33, Free Triiodothyronine 0.7L 12/13/19 07:45: Arterial Blood pH 7.359, Arterial Blood Partial Pressure CO2 30.1L, Arterial Blood Partial Pressure O2 255.9H, Arterial Blood HCO3 16.6*L, Arterial Blood Oxygen Saturation 98.9, Arterial Blood Base Excess -8.1L, Scotty Test Positive Current Medications Medications (Trade) Dose Ordered Sig/Esequiel Route PRN Reason Start Time Stop Time Status Last Admin Dose Admin Acetaminophen (Tylenol) 650 mg Q4H PRN GT Mild Pain (Pain Scale 1-3) 12/11/19 16:45 01/10/20 16:44 12/13/19 08:00 Acetaminophen (Tylenol) 650 mg Q4H PRN RECTAL Mild Pain (Pain Scale 1-3) 12/11/19 16:45 01/10/20 16:44 12/12/19 13:14 Chlorhexidine Gluconate (Bijal-Hex 2%) 1 applic DAILY@2000 TOPIC 12/12/19 20:00 03/11/20 19:59 12/12/19 20:15 Dextrose (Dextrose 50%) 25 ml Q30M PRN IV Hypoglycemia 12/13/19 02:00 03/12/20 01:59 Dextrose (Dextrose 50%) 50 ml Q30M PRN IV Hypoglycemia 12/13/19 02:00 03/12/20 01:59 Dextrose/ Electrolytes 1,000 ml @ 75 mls/hr [id number] IV 12/13/19 00:45 01/12/20 00:44 12/13/19 00:54 Fentanyl Citrate 250 ml @ 0 mls/hr Q24H IV 12/11/19 21:45 03/10/20 21:44 12/13/19 02:21 Insulin Aspart (NovoLOG) Q4HR SUBQ 12/13/19 05:00 03/12/20 04:59 12/13/19 06:11 Insulin Detemir (Levemir) 12 units BID SUBQ 12/13/19 09:00 03/12/20 08:59 Metoclopramide HCl (Reglan) 5 mg EVERY 8 HOURS IVP 12/12/19 14:00 01/11/20 13:59 12/13/19 06:10 Miscellaneous Medication (Insulin Rate Change) 1 ea PRN PRN MISC Hyperglycemia 12/11/19 16:45 03/10/20 16:44 12/12/19 23:30 Norepinephrine Bitartrate 16 mg/ Sodium Chloride 500 ml @ 0 mls/hr Q24H IV 12/11/19 23:00 01/10/20 22:59 12/13/19 09:03 Ondansetron HCl (Zofran) 4 mg Q6H PRN IVP Nausea & Vomiting 12/11/19 16:45 01/10/20 16:44 Pantoprazole (Protonix) 40 mg EVERY 12 HOURS IVP 12/12/19 09:00 01/11/20 08:59 12/13/19 08:00 Phenylephrine HCl 100 mg/Dextrose 510 ml @ 0 mls/hr Q24H IV 12/11/19 23:00 01/10/20 22:59 12/12/19 21:49 Piperacillin Sod/ Tazobactam Sod 3.375 gm/Sodium Chloride 110 ml @ 27.5 mls/hr EVERY 8 HOURS IVPB 12/12/19 14:00 12/17/19 13:59 12/13/19 06:10 Potassium Phosphate 20 mm/ Sodium Chloride 281.6667 ml @ 46.944 m... ONCE ONCE IV 12/13/19 09:00 12/13/19 14:59 12/13/19 08:48 Potassium Chloride 100 ml @ 50 mls/hr Q2H IVPB 12/13/19 09:00 12/13/19 12:59 12/13/19 08:49 Vasopressin 100 units/Sodium Chloride 100 ml @ 0 mls/hr Q24H IV 12/11/19 18:00 01/10/20 17:59 12/12/19 13:14 Assessment/Plan Assessment/Plan IMPRESSION: 1. DKA. 2. Upper GI bleed. 3. Respiratory failure. 4. Lactic acidosis. DISCUSSION: Continue broad-spectrum antibiotics. GI following for upper gastrointestinal bleeding, Pressors as needed. I will continue mechanical ventilation, sedation, Protonix , DVT prophylaxis. I will follow carefully. Will begin weaning today Transfuse today Osorio Harris Omar Syed MD December 13, 2019 09:43
--- NOTE | 2019-12-13 10:15 | Cardiac Electrophysiology PN ---
Assessment/Plan Assessment/Plan 1. Septic shock. Was on three pressors and now only on Levophed. Her echocardiogram showed ejection fraction of 60%. EKG shows sinus tachycardia with no acute ST-T wave abnormalities. The patient already on broad-spectrum IV antibiotic as well. 2. Respiratory failure, on the ventilator, likely with aspiration pneumonia. The patient with coffee-grounds emesis. 3. History of hypertension, currently hypotensive. 4. Coffee-ground emesis.Getting 2 units of PRBC 5. Diabetic ketoacidosis off insulin drip. MICAELA RN Subjective Subjective In ICU on the Vent on Levo 25Mc. Getting 2 units of PRBC in sinus tach. Off insulin drip on 40% Fio2 Objective Last 24 Hour Vital Signs Date Time Temp Pulse Resp B/P (MAP) Pulse Ox O2 Delivery O2 Flow Rate FiO2 12/13/19 09:03 108/56 12/13/19 08:30 99.5 12/13/19 07:22 125 24 40 12/13/19 07:00 24 105/61 Mechanical Ventilator 60 12/13/19 07:00 130/60 12/13/19 06:30 120 26 12/13/19 06:30 122 27 110/59 (76) 100 12/13/19 06:10 105/61 12/13/19 06:00 112 23 98/46 (63) 100 12/13/19 05:30 118 25 104/54 (71) 100 12/13/19 05:00 117 23 108/49 (68) 100 12/13/19 05:00 24 111/61 Mechanical Ventilator 60 12/13/19 05:00 111/61 12/13/19 04:30 114 26 91/50 (64) 100 12/13/19 04:15 122 25 117/52 (73) 100 12/13/19 04:00 115 12/13/19 04:00 24 117/52 Mechanical Ventilator 60 12/13/19 04:00 117/52 12/13/19 04:00 99.7 119 26 103/52 (69) 100 12/13/19 04:00 Mechanical Ventilator 12/13/19 03:30 118 26 60 12/13/19 03:30 125 25 109/47 (67) 100 12/13/19 03:15 115 25 96/52 (67) 100 12/13/19 03:00 26 96/52 Mechanical Ventilator 60 5/18/20 03:00 96/52 12/13/19 03:00 102.0 118 27 103/51 (68) 100 12/13/19 02:30 120 26 103/73 (83) 100 12/13/19 02:21 24 102/53 Mechanical Ventilator 60 12/13/19 02:00 102/53 12/13/19 02:00 116 26 106/51 (69) 100 12/13/19 01:30 116 26 100/53 (69) 100 12/13/19 01:00 115 26 103/50 (67) 100 12/13/19 01:00 26 104/55 Mechanical Ventilator 60 12/13/19 01:00 104/56 12/13/19 00:30 110 23 95/47 (63) 100 12/13/19 00:15 113 23 105/50 (68) 100 12/13/19 00:00 115 26 113/55 (74) 100 12/13/19 00:00 114 12/13/19 00:00 24 112/50 Mechanical Ventilator 60 12/13/19 00:00 105/50 12/13/19 00:00 Mechanical Ventilator 12/12/19 23:45 114 25 104/52 (69) 99 12/12/19 23:30 113 25 60 12/12/19 23:30 112 24 107/52 (70) 100 12/12/19 23:06 24 104/52 Mechanical Ventilator 60 12/12/19 23:06 104/52 12/12/19 23:02 114 26 111/60 (77) 99 12/12/19 23:00 108 24 100 12/12/19 22:30 108 24 117/57 (77) 99 12/12/19 22:13 111/70 12/12/19 22:00 114 21 111/70 (84) 100 12/12/19 22:00 24 111/70 Mechanical Ventilator 60 12/12/19 21:49 105 109/61 12/12/19 21:30 104 22 100/54 (69) 99 12/12/19 21:00 22 110/57 Mechanical Ventilator 60 12/12/19 21:00 110/57 12/12/19 21:00 104 22 117/59 (78) 99 12/12/19 20:30 103 23 179/165 (170) 99 5/17/20 20:21 132/69 12/12/19 20:00 100.0 107 27 163/71 (101) 98 12/12/19 20:00 Mechanical Ventilator 12/12/19 20:00 103 12/12/19 20:00 23 132/69 Mechanical Ventilator 60 20 20:00 132/69 12/12/19 19:30 101 23 60 12/12/19 19:30 98 23 139/72 (94) 100 12/12/19 19:00 112 25 115/58 (77) 99 12/12/19 19:00 25 100/65 Mechanical Ventilator 60 12/12/19 19:00 100/65 12/12/19 19:00 100 12/12/19 18:45 107 25 115/58 (77) 99 12/12/19 18:30 98.6 108 25 120/63 (82) 98 12/12/19 18:00 23 118/59 Mechanical Ventilator 60 12/12/19 18:00 118/59 12/12/19 18:00 97 22 118/59 (78) 99 12/12/19 17:30 98 22 114/74 (87) 99 12/12/19 17:00 97 22 115/59 (77) 100 12/12/19 17:00 22 115/59 Mechanical Ventilator 60 12/12/19 17:00 115/59 12/12/19 16:30 97 22 119/58 (78) 99 12/12/19 16:00 98 12/12/19 16:00 99.9 104 22 107/54 (71) 99 12/12/19 16:00 Mechanical Ventilator 12/12/19 16:00 22 116/56 Mechanical Ventilator 60 12/12/19 16:00 115/58 12/12/19 15:45 106 23 96/50 (65) 99 12/12/19 15:45 24 98/48 Mechanical Ventilator 60 12/12/19 15:30 108 22 98/48 (65) 99 12/12/19 15:15 109 23 105/51 (69) 99 12/12/19 15:00 109 24 110/64 (79) 99 12/12/19 15:00 23 105/51 Mechanical Ventilator 60 12/12/19 15:00 105/51 12/12/19 14:41 122 26 60 12/12/19 14:30 109 24 122/64 (83) 100 12/12/19 14:30 126/65 12/12/19 14:26 109 23 126/65 (85) 100 12/12/19 14:15 77/40 12/12/19 14:15 123 24 87/48 (61) 99 12/12/19 14:02 126 26 93/43 (60) 99 12/12/19 14:00 24 93/43 Mechanical Ventilator 60 12/12/19 14:00 93/43 12/12/19 14:00 125 23 180/110 (133) 98 12/12/19 13:45 126 26 228/181 (197) 99 12/12/19 13:45 180/110 12/12/19 13:44 100.1 12/12/19 13:30 198/170 12/12/19 13:30 128 26 201/185 (190) 97 12/12/19 13:15 100.1 128 29 182/87 (118) 98 12/12/19 13:15 201/185 12/12/19 13:00 124 24 103/47 (65) 99 12/12/19 13:00 25 103/47 Mechanical Ventilator 60 12/12/19 13:00 103/47 12/12/19 12:45 121 24 114/42 (66) 99 12/12/19 12:30 119 25 116/55 (75) 98 12/12/19 12:15 119 25 117/60 (79) 98 12/12/19 12:00 Mechanical Ventilator 12/12/19 12:00 109 12/12/19 12:00 25 115/58 Mechanical Ventilator 60 12/12/19 12:00 115/58 12/12/19 12:00 101.7 118 25 115/58 (77) 97 12/12/19 11:30 120 25 106/70 (82) 97 12/12/19 11:15 117 24 116/63 (80) 97 12/12/19 11:00 24 116/63 Mechanical Ventilator 60 12/12/19 11:00 116/63 12/12/19 11:00 118 24 109/54 (72) 97 12/12/19 10:45 117 24 101/68 (79) 98 12/12/19 10:44 117 25 105/59 (74) 98 12/12/19 10:39 117 24 60 12/12/19 10:30 120 23 87/41 (56) 99 12/12/19 10:15 121 25 110/59 (76) 98 12/12/19 10:11 100/54 Intake and Output 12/12/19 12/13/19 19:00 07:00 Intake Total 3508.1025 ml 1585.75 ml Output Total 2000 ml 1120 ml Balance 1508.1025 ml 465.75 ml Intake IV Total 3508.1025 ml 1585.75 ml Output Urine Total 2000 ml 1120 ml Laboratory Tests Test 12/12/19 10:50 12/12/19 20:00 12/13/19 03:20 12/13/19 07:45 White Blood Count 14.0 K/UL (4.8-10.8) H 10.6 K/UL (4.8-10.8) Red Blood Count 2.45 M/UL (4.20-5.40) L 1.98 M/UL (4.20-5.40) L Hemoglobin 8.0 G/DL (12.0-16.0) L 6.4 G/DL (12.0-16.0) *L Hematocrit 21.1 % (37.0-47.0) #L 17.1 % (37.0-47.0) L Mean Corpuscular Volume 86 FL (80-99) # 86 FL (80-99) Mean Corpuscular Hemoglobin 32.6 PG (27.0-31.0) H 32.2 PG (27.0-31.0) H Mean Corpuscular Hemoglobin Concent 35.3 G/DL (32.0-36.0) 37.3 G/DL (32.0-36.0) H Red Cell Distribution Width 12.0 % (11.6-14.8) 12.2 % (11.6-14.8) Platelet Count 132 K/UL (150-450) L 99 K/UL (150-450) L Mean Platelet Volume 9.6 FL (6.5-10.1) 8.8 FL (6.5-10.1) Neutrophils (%) (Auto) 81.2 % (45.0-75.0) H % (45.0-75.0) Lymphocytes (%) (Auto) 15.6 % (20.0-45.0) L % (20.0-45.0) Monocytes (%) (Auto) 2.0 % (1.0-10.0) % (1.0-10.0) Eosinophils (%) (Auto) 0.3 % (0.0-3.0) % (0.0-3.0) Basophils (%) (Auto) 0.9 % (0.0-2.0) % (0.0-2.0) Lactic Acid Level 1.60 mmol/L (0.66-2.22) Uric Acid 6.6 MG/DL (2.6-7.2) Total Bilirubin 0.2 MG/DL (0.2-1.0) 0.5 MG/DL (0.2-1.0) Direct Bilirubin < 0.1 MG/DL (0.0-0.3) Gamma Glutamyl Transpeptidase 20 U/L (5-85) Aspartate Amino Transf (AST/SGOT) 238 U/L (15-37) H 266 U/L (15-37) H Alanine Aminotransferase (ALT/SGPT) 89 U/L (12-78) H 114 U/L (12-78) H Alkaline Phosphatase 61 U/L (46-116) 65 U/L (46-116) Lactate Dehydrogenase 437 U/L (81-234) H C-Reactive Protein, Quantitative 42.5 mg/dL (0.00-0.90) H Pro-B-Type Natriuretic Peptide 3714 pg/mL (0-125) H Total Protein 4.5 G/DL (6.4-8.2) L 4.8 G/DL (6.4-8.2) L Albumin 1.3 G/DL (3.4-5.0) L 1.7 G/DL (3.4-5.0) L Troponin I 0.087 ng/mL (0.000-0.056) 0.102 ng/mL (0.000-0.056) Differential Total Cells Counted 100 Neutrophils % (Manual) 78 % (45-75) H Lymphocytes % (Manual) 9 % (20-45) L Monocytes % (Manual) 2 % (1-10) Eosinophils % (Manual) 0 % (0-3) Basophils % (Manual) 0 % (0-2) Band Neutrophils 11 % (0-8) H Platelet Estimate Decreased L Platelet Morphology Normal Hypochromasia 1+ Sodium Level 142 MMOL/L (136-145) Potassium Level 2.9 MMOL/L (3.5-5.1) L Chloride Level 107 MMOL/L (98-107) Carbon Dioxide Level 16 MMOL/L (21-32) L Anion Gap 19 mmol/L (5-15) H Blood Urea Nitrogen 13 mg/dL (7-18) Creatinine 0.8 MG/DL (0.55-1.30) Estimat Glomerular Filtration Rate > 60 mL/min (>60) Glucose Level 265 MG/DL (74-106) H Hemoglobin A1c > 16.0 % (4.3-6.0) H Calcium Level 7.8 MG/DL (8.5-10.1) L Phosphorus Level 1.7 MG/DL (2.5-4.9) L Magnesium Level 2.3 MG/DL (1.8-2.4) Iron Level 10 ug/dL (50-175) L Total Iron Binding Capacity 87 ug/dL (250-450) L Percent Iron Saturation 11 % (15-50) L Unsaturated Iron Binding 77 ug/dL (112-346) L Ferritin 1186 NG/ML (8-388) H Globulin 3.1 g/dL Albumin/Globulin Ratio 0.5 (1.0-2.7) L Amylase Level 208 U/L (25-115) H Lipase 728 U/L (73-393) H Vitamin B12 Level > 2000 PG/ML (193-986) H Folate 17.0 NG/ML (8.6-58.9) Thyroid Stimulating Hormone (TSH) 0.176 uiU/mL (0.358-3.740) Free Thyroxine 1.33 NG/DL (0.76-1.46) Free Triiodothyronine 0.7 pg/mL (2.3-4.2) L Arterial Blood pH 7.359 (7.350-7.450) Arterial Blood Partial Pressure CO2 30.1 mmHg (35.0-45.0) L Arterial Blood Partial Pressure O2 255.9 mmHg (75.0-100.0) H Arterial Blood HCO3 16.6 mmol/L (22.0-26.0) *L Arterial Blood Oxygen Saturation 98.9 % (95-100) Arterial Blood Base Excess -8.1 (-2-2) L Scotty Test Positive Microbiology Date/Time Source Procedure Growth Status 12/11/19 10:30 Blood Blood Culture - Preliminary NO GROWTH AFTER 24 HOURS Resulted 12/11/19 10:15 Blood Blood Culture - Preliminary NO GROWTH AFTER 24 HOURS Resulted Objective HEAD AND NECK: Orally intubated. LUNGS: Coarse rhonchi. CARDIOVASCULAR: Irregular S1-S2 and tachycardic. ABDOMEN: Soft. EXTREMITIES: No pitting edema. Gerarod Dyer MD December 13, 2019 10:15
--- NOTE | 2019-12-13 10:30 | Consultation ---
DATE OF CONSULTATION: 12/12/2019 ENDOCRINOLOGY CONSULTATION CONSULTING PHYSICIAN: Chi Hammond MD. REFERRING PHYSICIAN: Ubaldo Pinzon MD. REASON FOR CONSULTATION: I was asked to see this 58-year-old female by Dr. Ubaldo Pinzon in endocrinology consultation for management of acute diabetic ketoacidosis worse with respiratory failure. _ HISTORY OF PRESENT ILLNESS: Patient presented to the emergency room, was found to be in DKA with glucose as high as greater than 600 mg%. but lucose stabilized at 158. Patient has hprobable COVID posisive PHYSICAL EXAMINATION: GENERAL: Patient is intubated, in moderate distress. VITAL SIGNS: Blood pressure 110/57, pulse 69, respiratory rate 24, temperature 99.0. HEAD AND NECK: Unremarkable. Neck, no JVD. LUNGS: Decreased breath sounds. CARDIOVASCULAR: Heart sounds distant. ABDOMEN: Soft. Bowel sounds present. EXTREMITIES: No edema. NEUROLOGIC: Cranial nerves II through XII are grossly intact. Toes are downgoing to plantar stimulation. LABORATORY DATA: Na 142.,Glucose 156 IMPRESSION: 1. Acute diabetic ketoacidosis, improving. 2. Acute respiratory failure. 3. COVID.positive DISCUSSION:NS 100 cc/hr then NG with glucerna 1.2 at 40 cc/hr and reduce NS to 60 cc/hr.Levemir 10u sc q12hrs.Accuchecks Q6hrm with moderate sliding scale Novolog. . Chi Hammond M.D. DR: JEAN-PAUL JOB#: [id number] CC: CARLOS EDUARDO
[2019-12-13] MEDS: Levemir Flexpen SUBQ SCH ×2 (10:37→17:12)
--- NOTE | 2019-12-13 11:52 | General Progress Note ---
Assessment/Plan Problem List: (1) Coffee ground emesis ICD Codes: K92.0 - Hematemesis SNOMED: 57564071 (2) High blood urea nitrogen (BUN) ICD Codes: R79.9 - Abnormal finding of blood chemistry, unspecified SNOMED: 359241593, 041659912 (3) High serum creatine ICD Codes: R79.89 - Other specified abnormal findings of blood chemistry SNOMED: 065532911, 636502636 (4) DKA (diabetic ketoacidoses) ICD Codes: E11.10 - Type 2 diabetes mellitus with ketoacidosis without coma SNOMED: 704708337, 90537607 Qualifiers: Qualified Codes: E13.11 - Other specified diabetes mellitus with ketoacidosis with coma (5) Altered mental status ICD Codes: R41.82 - Altered mental status, unspecified SNOMED: 200596393, 90501168 Qualifiers: Qualified Codes: R41.82 - Altered mental status, unspecified (6) Cardiac arrest ICD Codes: I46.9 - Cardiac arrest, cause unspecified SNOMED: 707801802 (7) Respiratory distress ICD Codes: R06.03 - Acute respiratory distress SNOMED: 720200760 Assessment/Plan: on one pressors getting 2 units prbc no obvious GIB per nurses not stable for GI procedures ppi iv BID reglan monitor H&H transfuse to keep HGB above 7.5 keep npo Subjective ROS Limited/Unobtainable: No Allergies: Coded Allergies: No Known Allergies (Unverified , 12/11/19) Objective Last 24 Hour Vital Signs Date Time Temp Pulse Resp B/P (MAP) Pulse Ox O2 Delivery O2 Flow Rate FiO2 12/13/19 09:03 108/56 12/13/19 08:30 99.5 12/13/19 07:22 125 24 40 12/13/19 07:00 24 105/61 Mechanical Ventilator 60 12/13/19 07:00 130/60 12/13/19 06:30 120 26 12/13/19 06:30 122 27 110/59 (76) 100 12/13/19 06:10 105/61 12/13/19 06:00 112 23 98/46 (63) 100 12/13/19 05:30 118 25 104/54 (71) 100 12/13/19 05:00 117 23 108/49 (68) 100 12/13/19 05:00 24 111/61 Mechanical Ventilator 60 12/13/19 05:00 111/61 12/13/19 04:30 114 26 91/50 (64) 100 12/13/19 04:15 122 25 117/52 (73) 100 12/13/19 04:00 115 12/13/19 04:00 24 117/52 Mechanical Ventilator 60 12/13/19 04:00 117/52 12/13/19 04:00 99.7 119 26 103/52 (69) 100 12/13/19 04:00 Mechanical Ventilator 12/13/19 03:30 118 26 60 12/13/19 03:30 125 25 109/47 (67) 100 12/13/19 03:15 115 25 96/52 (67) 100 12/13/19 03:00 26 96/52 Mechanical Ventilator 60 12/13/19 03:00 96/52 12/13/19 03:00 102.0 118 27 103/51 (68) 100 12/13/19 02:30 120 26 103/73 (83) 100 12/13/19 02:21 24 102/53 Mechanical Ventilator 60 12/13/19 02:00 102/53 12/13/19 02:00 116 26 106/51 (69) 100 12/13/19 01:30 116 26 100/53 (69) 100 12/13/19 01:00 115 26 103/50 (67) 100 12/13/19 01:00 26 104/55 Mechanical Ventilator 60 12/13/19 01:00 104/56 12/13/19 00:30 110 23 95/47 (63) 100 12/13/19 00:15 113 23 105/50 (68) 100 12/13/19 00:00 115 26 113/55 (74) 100 12/13/19 00:00 114 12/13/19 00:00 24 112/50 Mechanical Ventilator 60 12/13/19 00:00 105/50 12/13/19 00:00 Mechanical Ventilator 12/12/19 23:45 114 25 104/52 (69) 99 12/12/19 23:30 113 25 60 12/12/19 23:30 112 24 107/52 (70) 100 12/12/19 23:06 24 104/52 Mechanical Ventilator 60 12/12/19 23:06 104/52 12/12/19 23:02 114 26 111/60 (77) 99 12/12/19 23:00 108 24 100 12/12/19 22:30 108 24 117/57 (77) 99 12/12/19 22:13 111/70 12/12/19 22:00 114 21 111/70 (84) 100 12/12/19 22:00 24 111/70 Mechanical Ventilator 60 12/12/19 21:49 105 109/61 12/12/19 21:30 104 22 100/54 (69) 99 12/12/19 21:00 22 110/57 Mechanical Ventilator 60 12/12/19 21:00 110/57 12/12/19 21:00 104 22 117/59 (78) 99 12/12/19 20:30 103 23 179/165 (170) 99 12/12/19 20:21 132/69 12/12/19 20:00 100.0 107 27 163/71 (101) 98 12/12/19 20:00 Mechanical Ventilator 12/12/19 20:00 103 12/12/19 20:00 23 132/69 Mechanical Ventilator 60 12/12/19 20:00 132/69 12/12/19 19:30 101 23 60 12/12/19 19:30 98 23 139/72 (94) 100 12/12/19 19:00 112 25 115/58 (77) 99 12/12/19 19:00 25 100/65 Mechanical Ventilator 60 12/12/19 19:00 100/65 12/12/19 19:00 100 12/12/19 18:45 107 25 115/58 (77) 99 12/12/19 18:30 98.6 108 25 120/63 (82) 98 12/12/19 18:00 23 118/59 Mechanical Ventilator 60 12/12/19 18:00 118/59 12/12/19 18:00 97 22 118/59 (78) 99 12/12/19 17:30 98 22 114/74 (87) 99 12/12/19 17:00 97 22 115/59 (77) 100 12/12/19 17:00 22 115/59 Mechanical Ventilator 60 12/12/19 17:00 115/59 12/12/19 16:30 97 22 119/58 (78) 99 12/12/19 16:00 98 5/17/20 16:00 99.9 104 22 107/54 (71) 99 12/12/19 16:00 Mechanical Ventilator 12/12/19 16:00 22 116/56 Mechanical Ventilator 60 12/12/19 16:00 115/58 12/12/19 15:45 106 23 96/50 (65) 99 12/12/19 15:45 24 98/48 Mechanical Ventilator 60 12/12/19 15:30 108 22 98/48 (65) 99 12/12/19 15:15 109 23 105/51 (69) 99 12/12/19 15:00 109 24 110/64 (79) 99 12/12/19 15:00 23 105/51 Mechanical Ventilator 60 12/12/19 15:00 105/51 12/12/19 14:41 122 26 60 12/12/19 14:30 109 24 122/64 (83) 100 12/12/19 14:30 126/65 12/12/19 14:26 109 23 126/65 (85) 100 12/12/19 14:15 77/40 12/12/19 14:15 123 24 87/48 (61) 99 12/12/19 14:02 126 26 93/43 (60) 99 12/12/19 14:00 24 93/43 Mechanical Ventilator 60 12/12/19 14:00 93/43 12/12/19 14:00 125 23 180/110 (133) 98 12/12/19 13:45 126 26 228/181 (197) 99 12/12/19 13:45 180/110 12/12/19 13:44 100.1 12/12/19 13:30 198/170 12/12/19 13:30 128 26 201/185 (190) 97 12/12/19 13:15 100.1 128 29 182/87 (118) 98 12/12/19 13:15 201/185 12/12/19 13:00 124 24 103/47 (65) 99 12/12/19 13:00 25 103/47 Mechanical Ventilator 60 12/12/19 13:00 103/47 12/12/19 12:45 121 24 114/42 (66) 99 12/12/19 12:30 119 25 116/55 (75) 98 12/12/19 12:15 119 25 117/60 (79) 98 12/12/19 12:00 Mechanical Ventilator 12/12/19 12:00 109 12/12/19 12:00 25 115/58 Mechanical Ventilator 60 12/12/19 12:00 115/58 12/12/19 12:00 101.7 118 25 115/58 (77) 97 Intake and Output 12/12/19 12/13/19 19:00 07:00 Intake Total 3508.1025 ml 1585.75 ml Output Total 2000 ml 1120 ml Balance 1508.1025 ml 465.75 ml Intake IV Total 3508.1025 ml 1585.75 ml Output Urine Total 2000 ml 1120 ml Laboratory Tests 12/12/19 20:00: Troponin I 0.087H 12/13/19 03:20: Troponin I 0.102H, White Blood Count 10.6, Red Blood Count 1.98L, Hemoglobin 6.4 *L, Hematocrit 17.1L, Mean Corpuscular Volume 86, Mean Corpuscular Hemoglobin 32.2H, Mean Corpuscular Hemoglobin Concent 37.3H, Red Cell Distribution Width 12.2, Platelet Count 99L, Mean Platelet Volume 8.8, Neutrophils (%) (Auto) , Lymphocytes (%) (Auto) , Monocytes (%) (Auto) , Eosinophils (%) (Auto) , Basophils (%) (Auto) , Differential Total Cells Counted 100, Neutrophils % ( Manual) 78H, Lymphocytes % (Manual) 9L, Monocytes % (Manual) 2, Eosinophils % ( Manual) 0, Basophils % (Manual) 0, Band Neutrophils 11H, Platelet Estimate DecreasedL, Platelet Morphology Normal, Hypochromasia 1+, Sodium Level 142, Potassium Level 2.9L, Chloride Level 107, Carbon Dioxide Level 16L, Anion Gap 19H, Blood Urea Nitrogen 13, Creatinine 0.8, Estimat Glomerular Filtration Rate > 60, Glucose Level 265H, Hemoglobin A1c > 16.0H, Calcium Level 7.8L, Phosphorus Level 1.7L, Magnesium Level 2.3, Iron Level 10L, Total Iron Binding Capacity 87L, Percent Iron Saturation 11L, Unsaturated Iron Binding 77L, Ferritin 1186H, Total Bilirubin 0.5, Aspartate Amino Transf (AST/SGOT) 266H, Alanine Aminotransferase (ALT/SGPT) 114H, Alkaline Phosphatase 65, Total Protein 4.8L, Albumin 1.7L, Globulin 3.1, Albumin/Globulin Ratio 0.5L, Amylase Level 208H, Lipase 728H, Vitamin B12 Level > 2000H, Folate 17.0, Thyroid Stimulating Hormone (TSH) 0.176L, Free Thyroxine 1.33, Free Triiodothyronine 0.7L 12/13/19 07:45: Arterial Blood pH 7.359, Arterial Blood Partial Pressure CO2 30.1L, Arterial Blood Partial Pressure O2 255.9H, Arterial Blood HCO3 16.6*L, Arterial Blood Oxygen Saturation 98.9, Arterial Blood Base Excess -8.1L, Scotty Test Positive Height (Feet): 5 Height (Inches): 5.00 Weight (Pounds): 149 General Appearance: lethargic EENT: normal ENT inspection Neck: supple Cardiovascular: tachycardia Respiratory/Chest: decreased breath sounds Abdomen: soft, hypoactive bowel sounds Extremities: non-tender Maykel Stephen MD December 13, 2019 11:52
--- NOTE | 2019-12-13 14:36 | Diagnostic Imaging Report ---
Indication: Shortness of breath Technique: XRAY Chest 1v Comparison: 12/11/2019 point Findings: Heart size and mediastinal contours are stable. There is worsening of aeration with increasing interstitial and patchy bilateral airspace disease. No appreciable pneumothorax. Endotracheal and enteric tubes remain in place. The enteric tube is been retracted slightly. The tip remains in the stomach but the side port is noted in the region of the gastroesophageal junction and subtle enhancement is recommended for more optimal positioning. Osseous structures are stable. IMPRESSION: Worsening aeration with increasing interstitial and patchy bilateral airspace disease which may be related to worsening CHF/pulmonary edema and/or multifocal pneumonia. Follow-up recommended. * Endotracheal and enteric tubes remain in place. * Enteric/NG tube has been retracted slightly. Tip remains in the stomach but the side-port is now in the region of the gastroesophageal junction. Slight advancement is recommended for more optimal positioning.
[2019-12-13] MEDS: Vasopressin 100 UNITS in NS 95 ML IV SCH (17:10)
[2019-12-13] MEDS: Dyna-Hex 2% Top Sol 2oz TOPIC SCH (20:00)
--- NOTE | 2019-12-13 21:15 | Progress Note ---
DATE: 12/13/2019 SUBJECTIVE: This is a 58-year-old female, currently in the ICU, nonverbal, on ventilator, Full Code. PHYSICAL EXAMINATION: VITAL SIGNS: Blood pressure is 105/60, pulse 130, low-grade fever. HEENT: Eyes are close. NECK: Supple. CHEST: Bilateral few crackles. CARDIOVASCULAR: Regular rhythm. ABDOMEN: Soft. EXTREMITIES: CCE. NEUROLOGICAL: Generalized weakness. LABORATORY DATA: White counts are 11,000, hemoglobin 6.4, hematocrit 17. Chemistry panel, A1c is 16. His blood gas, pH 7.35 and bicarb . ASSESSMENT: 1. Anemia. 2. Decay. 3. Acute cardiopulmonary arrest. 4. Encephalopathy. PLAN: We will continue weaning protocols. Blood cultures are so far negative. We will DC, insulin drip. The patient is on Levemir. Continue sliding scale, Accu-Chek, antibiotics. ID, Endocrine, and Pulmonary are on case. Pending protocols. Frank Pinzon M.D. DR: Alanis JOB#: [id number] CC:
[2019-12-13] MEDS: PHENYLEPHRINE IV SCH (21:50)
[2019-12-13] MEDS: D5W IV SCH (21:50)
[2019-12-14] VITALS (67 sets, daily range): BP systolic 88–169; BP diastolic 51–129
[2019-12-14] MEDS: NovoLOG Insulin Flexpen SUBQ SCH ×6 (00:18→21:00)
[2019-12-14] MEDS: D5NS w/KCl 40mEq 1000ml 1,000 ML IV SCH (03:42)
[2019-12-14] MEDS: fentaNYL 2500mcg/NS 250ml 250 ML IV SCH (03:55)
[2019-12-14] MEDS: Zoysn 3.37gm in NS 100ML IVPB SCH ×3 (05:09→20:44)
[2019-12-14] MEDS: Metoclopramide 10mg/2ml Inj IVP SCH ×3 (05:09→20:44)
[2019-12-14 05:19] LABS: BASOPHILS % (AUTO) 0.7 % (0.0-2.0); EOSINOPHILS % (AUTO) 1.3 % (0.0-3.0); HEMATOCRIT 24.8 % (37.0-47.0); LYMPHOCYTES % (AUTO) 11.2 % (20.0-45.0); MEAN CORPUSCULAR VOLUME 86 FL (80-99); MONOCYTES % (AUTO) 2.7 % (1.0-10.0); NEUTROPHILS % (AUTO) 84.3 % (45.0-75.0); PLATELET COUNT 102 K/UL (150-450); RED BLOOD COUNT 2.89 M/UL (4.20-5.40); RED CELL DISTRIBUTION WIDTH 12.9 % (11.6-14.8); WHITE BLOOD COUNT 8.6 K/UL (4.8-10.8)
[2019-12-14 05:47] LABS: ALANINE AMINOTRANSFERASE 275 U/L (12-78); ALBUMIN 1.7 G/DL (3.4-5.0); ALBUMIN/GLOBULIN RATIO 0.6 (1.0-2.7); ALKALINE PHOSPHATASE 79 U/L (46-116); ANION GAP 11 mmol/L (5-15); ASPARTATE AMINO TRANSFERASE 418 U/L (15-37); BILIRUBIN,TOTAL 0.4 MG/DL (0.2-1.0); BLOOD UREA NITROGEN 11 mg/dL (7-18); CALCIUM 7.6 MG/DL (8.5-10.1); CARBON DIOXIDE 24 MMOL/L (21-32); CHLORIDE 125 MMOL/L (98-107); CREATININE 0.8 MG/DL (0.55-1.30); PHOSPHORUS 2.1 MG/DL (2.5-4.9); POTASSIUM 3.5 MMOL/L (3.5-5.1); SODIUM 159 MMOL/L (136-145)
--- NOTE | 2019-12-14 07:34 | General Progress Note ---
Assessment/Plan Problem List: (1) DKA (diabetic ketoacidoses) ICD Codes: E11.10 - Type 2 diabetes mellitus with ketoacidosis without coma SNOMED: 862868670, 04725276 Qualifiers: Qualified Codes: E13.11 - Other specified diabetes mellitus with ketoacidosis with coma (2) Cardiac arrest ICD Codes: I46.9 - Cardiac arrest, cause unspecified SNOMED: 977273856 (3) Coffee ground emesis ICD Codes: K92.0 - Hematemesis SNOMED: 21826850 (4) Abnormal TSH ICD Codes: R79.89 - Other specified abnormal findings of blood chemistry SNOMED: 898092016 Assessment/Plan: increase Levemir to 14 units bid continue Novolog sliding scale every 4 hours thyroid function studies suggestive of "sick euthyroid" no need for thyroid medications repeat thyroid function in 2 weeks Subjective ROS Limited/Unobtainable: Yes Allergies: Coded Allergies: No Known Allergies (Unverified , 12/11/19) Subjective still in ICU off pressors glucose values improving DKA resolved Item Value Date Time Bedside Blood Glucose 190 mg/dl H 12/14/19 0400 Bedside Blood Glucose 246 mg/dl H 12/14/19 0018 Bedside Blood Glucose 280 mg/dl H 12/13/19 2116 Bedside Blood Glucose 295 mg/dl H 12/13/19 1712 Bedside Blood Glucose 298 mg/dl H 12/13/19 1404 Bedside Blood Glucose 324 mg/dl H 12/13/19 1037 Objective Last 24 Hour Vital Signs Date Time Temp Pulse Resp B/P (MAP) Pulse Ox O2 Delivery O2 Flow Rate FiO2 12/14/19 07:00 99 25 115/80 (92) 99 12/14/19 06:45 108 21 110/78 (89) 99 12/14/19 06:30 97 25 103/67 (79) 96 12/14/19 06:17 98 21 12/14/19 06:15 107 25 106/77 (87) 95 12/14/19 06:00 20 96/57 Mechanical Ventilator 30 12/14/19 06:00 99.6 97 23 97/65 (76) 99 12/14/19 05:45 96 23 94/54 (67) 99 12/14/19 05:30 96 22 98/61 (73) 99 12/14/19 05:15 98 22 106/66 (79) 98 12/14/19 05:00 20 96/60 Mechanical Ventilator 30 12/14/19 05:00 99.7 96 24 90/62 (71) 98 12/14/19 04:45 97 22 98/71 (80) 98 12/14/19 04:30 95 24 95/66 (76) 98 12/14/19 04:15 99 24 106/70 (82) 12/14/19 04:00 30 12/14/19 04:00 99.9 105 24 110/65 (80) 100 12/14/19 04:00 98 12/14/19 04:00 22 96/66 Mechanical Ventilator 30 12/14/19 04:00 Mechanical Ventilator 12/14/19 03:55 22 107/69 Mechanical Ventilator 40 12/14/19 03:45 102 23 107/69 (82) 100 12/14/19 03:30 100 24 105/62 (76) 100 12/14/19 03:20 103 23 40 12/14/19 03:15 106 25 128/67 (87) 99 12/14/19 03:00 21 93/63 Mechanical Ventilator 40 12/14/19 03:00 93/63 12/14/19 03:00 98 21 93/63 (73) 99 12/14/19 02:45 105 23 106/67 (80) 99 12/14/19 02:30 101 22 94/56 (69) 98 12/14/19 02:15 100 21 95/54 (68) 97 12/14/19 02:00 21 96/53 Mechanical Ventilator 40 12/14/19 02:00 96/51 12/14/19 02:00 100.6 105 20 96/53 (67) 98 12/14/19 01:45 106 20 93/51 (65) 98 12/14/19 01:30 103 21 95/51 (66) 96 12/14/19 01:15 100.9 104 21 91/52 (65) 96 12/14/19 01:00 108 22 101/57 (72) 97 12/14/19 01:00 21 91/57 Mechanical Ventilator 35 12/14/19 01:00 91/57 12/14/19 00:45 106 21 99/52 (68) 96 12/14/19 00:30 109 21 96/53 (67) 97 5/19/20 00:15 109 21 94/55 (68) 97 20 00:00 35 12/14/19 00:00 Mechanical Ventilator 12/14/19 00:00 20 103/54 Mechanical Ventilator 35 20 00:00 103/56 5 00:00 101.9 110 22 103/54 (70) 95 12/14/19 00:00 110 18 23:45 113 22 109/62 (78) 12/13/19 23:30 116 24 94/56 (69) 97 12/13/19 23:15 118 24 71/49 (56) 96 12/13/19 23:00 20 102/56 Mechanical Ventilator 40 12/13/19 23:00 102/56 12/13/19 23:00 115 21 106/64 (78) 96 12/13/19 22:44 115 26 40 12/13/19 22:30 115 23 93/69 (77) 96 12/13/19 22:15 112 23 103/59 (74) 96 12/13/19 22:00 114 23 106/56 (73) 96 12/13/19 22:00 20 93/50 Mechanical Ventilator 40 12/13/19 22:00 93/50 12/13/19 21:50 116 109/61 12/13/19 21:45 112 24 100/57 (71) 95 1820 21:30 114 25 98/55 (69) 94 20 21:17 101.0 12/13/19 21:15 114 23 115/61 (79) 95 20 21:00 113 24 111/64 (80) 94 20 21:00 20 99/52 Mechanical Ventilator 40 20 21:00 99/52 20 20:45 114 21 113/62 (79) 94 20 20:30 115 23 98/81 (87) 95 20 20:15 113 25 112/64 (80) 94 20 20:00 Mechanical Ventilator 20 20:00 40 518/20 20:00 20 110/65 Mechanical Ventilator 40 20 20:00 110/65 520 20:00 114 5/18/20 20:00 101.2 116 28 117/69 (85) 96 1820 19:45 113 24 102/58 (73) 94 20 19:30 116 26 109/61 (77) 95 20 19:30 116 26 109/61 (77) 95 18/20 19:15 113 23 40 18/20 19:15 114 25 111/63 (79) 95 20 19:00 25 104/55 Mechanical Ventilator 40 20 19:00 104/55 1820 19:00 114 25 104/55 (71) 95 20 18:45 117 27 117/62 (80) 95 20 18:30 117 26 112/62 (79) 95 12/13/19 18:15 121 28 120/60 (80) 95 20 18:00 27 120/60 Mechanical Ventilator 40 12/13/19 18:00 120/60 12/13/19 18:00 118 29 108/61 (77) 95 12/13/19 17:45 118 26 140/97 (111) 95 20 17:30 114 26 110/65 (80) 97 18/20 17:30 28 140/97 Mechanical Ventilator 40 12/13/19 17:15 98.0 115 25 119/67 (84) 97 1820 17:12 115 25 119/67 (84) 97 18/20 17:00 25 119/67 Mechanical Ventilator 40 20 17:00 119/67 12/13/19 17:00 119 27 110/56 (74) 97 20 16:45 115 22 103/55 (71) 98 12/12/20 16:30 24 103/55 Mechanical Ventilator 40 20 16:30 118 25 103/59 (74) 98 12/12/20 16:15 117 22 103/56 (72) 98 12/13/19 16:00 98.9 120 24 97/61 (73) 96 20 16:00 23 103/56 Mechanical Ventilator 40 20 16:00 103/56 20 16:00 40.0 100 12/13/19 16:00 119 5/18/20 16:00 Mechanical Ventilator 12/13/19 15:45 123 23 99/57 (71) 95 12/13/19 15:30 129 24 113/67 (82) 95 12/13/19 15:24 118 22 40 12/13/19 15:15 128 22 111/59 (76) 95 12/13/19 15:00 111/59 12/13/19 15:00 130 22 109/69 (82) 96 12/13/19 14:45 130 21 105/60 (75) 96 12/13/19 14:30 133 22 107/60 (76) 96 12/13/19 14:15 133 21 119/61 (80) 96 12/13/19 14:00 130 21 123/66 (85) 95 12/13/19 14:00 124/72 12/13/19 13:45 130 21 124/72 (89) 95 12/13/19 13:30 132 21 134/71 (92) 96 12/13/19 13:15 130 21 127/74 (91) 95 12/13/19 13:00 127/74 12/13/19 13:00 126 20 115/59 (77) 96 12/13/19 12:45 126 20 120/60 (80) 96 12/13/19 12:30 129 21 115/60 (78) 96 12/13/19 12:15 126 21 116/67 (83) 96 12/13/19 12:00 99.8 127 21 126/57 (80) 96 12/13/19 12:00 21 116/67 Mechanical Ventilator 40 12/13/19 12:00 116/67 12/13/19 12:00 127 12/13/19 12:00 40.0 100 12/13/19 12:00 Mechanical Ventilator 12/13/19 11:45 127 26 126/61 (82) 99 12/13/19 11:30 121 20 112/54 (73) 97 12/13/19 11:21 120 21 40 12/13/19 11:15 120 20 115/54 (74) 97 12/13/19 11:00 118 20 109/52 (71) 98 12/13/19 11:00 20 115/54 Mechanical Ventilator 40 12/13/19 11:00 115/54 12/13/19 10:45 124 21 116/61 (79) 98 12/13/19 10:30 120 20 100/61 (74) 97 12/13/19 10:15 123 21 115/59 (77) 97 12/13/19 10:00 21 115/59 Mechanical Ventilator 40 12/13/19 10:00 115/59 12/13/19 10:00 126 24 125/58 (80) 98 12/13/19 09:45 122 21 104/56 (72) 98 12/13/19 09:30 122 21 109/61 (77) 98 12/13/19 09:15 121 20 106/49 (68) 98 12/13/19 09:03 108/56 12/13/19 09:00 128 21 108/56 (73) 96 12/13/19 09:00 20 107/61 Mechanical Ventilator 40 12/13/19 08:45 130 21 123/96 (105) 96 12/13/19 08:30 131 24 113/63 (80) 96 12/13/19 08:15 129 25 140/62 (88) 96 12/13/19 08:00 99.5 126 25 117/74 (88) 100 12/13/19 08:00 40.0 100 12/13/19 08:00 122 12/13/19 08:00 Mechanical Ventilator 12/13/19 08:00 25 140/62 Mechanical Ventilator 40 12/13/19 08:00 140/62 12/13/19 07:45 122 25 113/57 (75) 99 Intake and Output 12/13/19 12/14/19 19:00 07:00 Intake Total 2410.448 ml 1054.36 ml Output Total 2350 ml 1050 ml Balance 60.448 ml 4.36 ml Intake IV Total 1910.448 ml 1054.36 ml Blood Product 500 ml Output Urine Total 2350 ml 1050 ml # Bowel Movements 1 Laboratory Tests 12/13/19 07:45: Arterial Blood pH 7.359, Arterial Blood Partial Pressure CO2 30.1L, Arterial Blood Partial Pressure O2 255.9H, Arterial Blood HCO3 16.6*L, Arterial Blood Oxygen Saturation 98.9, Arterial Blood Base Excess -8.1L, Scotty Test Positive 12/14/19 04:00: White Blood Count 8.6, Red Blood Count 2.89L, Hemoglobin 9.0#L, Hematocrit 24.8# L, Mean Corpuscular Volume 86, Mean Corpuscular Hemoglobin 31.0, Mean Corpuscular Hemoglobin Concent 36.2H, Red Cell Distribution Width 12.9, Platelet Count 102L, Mean Platelet Volume 8.7, Neutrophils (%) (Auto) 84.3H, Lymphocytes (%) (Auto) 11.2L, Monocytes (%) (Auto) 2.7, Eosinophils (%) (Auto) 1.3, Basophils (%) (Auto) 0.7, Stool Occult Blood [Pending], Sodium Level 159H, Potassium Level 3.5, Chloride Level 125H, Carbon Dioxide Level 24, Anion Gap 11 , Blood Urea Nitrogen 11, Creatinine 0.8, Estimat Glomerular Filtration Rate > 60, Glucose Level 232H, Uric Acid 1.8L, Calcium Level 7.6L, Phosphorus Level 2.1L, Magnesium Level 2.2, Total Bilirubin 0.4, Aspartate Amino Transf (AST/SGOT ) 418H, Alanine Aminotransferase (ALT/SGPT) 275H, Alkaline Phosphatase 79, C- Reactive Protein, Quantitative 48.6H, Pro-B-Type Natriuretic Peptide 2368H, Total Protein 4.5L, Albumin 1.7L, Globulin 2.8, Albumin/Globulin Ratio 0.6L Height (Feet): 5 Height (Inches): 5.00 Weight (Pounds): 147 General Appearance: moderate distress Neck: normal alignment Cardiovascular: tachycardia Respiratory/Chest: decreased breath sounds Abdomen: normal bowel sounds Objective Current Medications Medications (Trade) Dose Ordered Sig/Esequiel Route PRN Reason Start Time Stop Time Status Last Admin Dose Admin Acetaminophen (Tylenol) 650 mg Q4H PRN GT Mild Pain (Pain Scale 1-3) 12/11/19 16:45 01/10/20 16:44 12/13/19 20:41 Acetaminophen (Tylenol) 650 mg Q4H PRN RECTAL Mild Pain (Pain Scale 1-3) 12/11/19 16:45 01/10/20 16:44 12/12/19 13:14 Chlorhexidine Gluconate (Bijal-Hex 2%) 1 applic DAILY@1999 TOPIC 12/12/19 20:00 03/11/20 19:59 12/13/19 20:00 Dextrose (Dextrose 50%) 25 ml Q30M PRN IV Hypoglycemia 12/13/19 02:00 03/12/20 01:59 Dextrose (Dextrose 50%) 50 ml Q30M PRN IV Hypoglycemia 12/13/19 02:00 03/12/20 01:59 Dextrose/ Electrolytes 1,000 ml @ 75 mls/hr [id number] IV 12/13/19 00:45 01/12/20 00:44 12/14/19 03:42 Fentanyl Citrate 250 ml @ 0 mls/hr Q24H IV 12/11/19 21:45 03/10/20 21:44 12/14/19 03:55 Insulin Aspart (NovoLOG) Q4HR SUBQ 12/13/19 05:00 03/12/20 04:59 12/14/19 03:43 Insulin Detemir (Levemir) 12 units BID SUBQ 12/13/19 09:00 03/12/20 08:59 12/13/19 17:12 Metoclopramide HCl (Reglan) 5 mg EVERY 8 HOURS IVP 12/12/19 14:00 01/11/20 13:59 12/14/19 05:09 Miscellaneous Medication (Insulin Rate Change) 1 ea PRN PRN MISC Hyperglycemia 12/11/19 16:45 03/10/20 16:44 12/12/19 23:30 Norepinephrine Bitartrate 16 mg/ Sodium Chloride 500 ml @ 0 mls/hr Q24H IV 12/11/19 23:00 01/10/20 22:59 12/13/19 09:03 Ondansetron HCl (Zofran) 4 mg Q6H PRN IVP Nausea & Vomiting 12/11/19 16:45 01/10/20 16:44 Pantoprazole (Protonix) 40 mg EVERY 12 HOURS IVP 12/12/19 09:00 01/11/20 08:59 12/13/19 20:41 Phenylephrine HCl 100 mg/Dextrose 510 ml @ 0 mls/hr Q24H IV 12/11/19 23:00 01/10/20 22:59 12/12/19 21:49 Piperacillin Sod/ Tazobactam Sod 3.375 gm/Sodium Chloride 110 ml @ 27.5 mls/hr EVERY 8 HOURS IVPB 12/12/19 14:00 12/17/19 13:59 12/14/19 05:09 Vasopressin 100 units/Sodium Chloride 100 ml @ 0 mls/hr Q24H IV 12/11/19 18:00 01/10/20 17:59 12/12/19 13:14 Stef Ortega MD December 14, 2019 07:34
[2019-12-14] MEDS: Pantoprazole Inj IVP SCH ×2 (08:56→20:44)
[2019-12-14] MEDS: Levemir Flexpen SUBQ SCH ×2 (08:59→17:16)
--- NOTE | 2019-12-14 10:06 | General Progress Note ---
Assessment/Plan Problem List: (1) Coffee ground emesis ICD Codes: K92.0 - Hematemesis SNOMED: 86930390 (2) High blood urea nitrogen (BUN) ICD Codes: R79.9 - Abnormal finding of blood chemistry, unspecified SNOMED: 751741058, 228294347 (3) High serum creatine ICD Codes: R79.89 - Other specified abnormal findings of blood chemistry SNOMED: 900755563, 113974511 (4) DKA (diabetic ketoacidoses) ICD Codes: E11.10 - Type 2 diabetes mellitus with ketoacidosis without coma SNOMED: 151109160, 04091380 Qualifiers: Qualified Codes: E13.11 - Other specified diabetes mellitus with ketoacidosis with coma (5) Altered mental status ICD Codes: R41.82 - Altered mental status, unspecified SNOMED: 584499816, 69737054 Qualifiers: Qualified Codes: R41.82 - Altered mental status, unspecified (6) Cardiac arrest ICD Codes: I46.9 - Cardiac arrest, cause unspecified SNOMED: 632896372 (7) Respiratory distress ICD Codes: R06.03 - Acute respiratory distress SNOMED: 076358271 Assessment/Plan: s/p 2 units prbc no obvious GIB per nurses neg stool ob x1 not stable for GI procedures ppi iv BID reglan monitor H&H transfuse to keep HGB above 7.5 on weaning protocol Subjective ROS Limited/Unobtainable: No Allergies: Coded Allergies: No Known Allergies (Unverified , 12/11/19) Objective Last 24 Hour Vital Signs Date Time Temp Pulse Resp B/P (MAP) Pulse Ox O2 Delivery O2 Flow Rate FiO2 12/14/19 09:30 108 27 30 30 12/14/19 09:29 95 12/14/19 07:45 103 25 98/67 (77) 99 12/14/19 07:30 103 27 99/73 (82) 99 12/14/19 07:18 107 27 30 12/14/19 07:00 25 115/80 Mechanical Ventilator 40 12/14/19 07:00 99 25 115/80 (92) 99 12/14/19 06:45 108 21 110/78 (89) 99 12/14/19 06:30 97 25 103/67 (79) 96 12/14/19 06:17 98 21 12/14/19 06:15 107 25 106/77 (87) 95 12/14/19 06:00 20 96/57 Mechanical Ventilator 30 12/14/19 06:00 99.6 97 23 97/65 (76) 99 12/14/19 05:45 96 23 94/54 (67) 99 12/14/19 05:30 96 22 98/61 (73) 99 12/14/19 05:15 98 22 106/66 (79) 98 12/14/19 05:00 20 96/60 Mechanical Ventilator 30 12/14/19 05:00 99.7 96 24 90/62 (71) 98 12/14/19 04:45 97 22 98/71 (80) 98 12/14/19 04:30 95 24 95/66 (76) 98 12/14/19 04:15 99 24 106/70 (82) 12/14/19 04:00 30 12/14/19 04:00 99.9 105 24 110/65 (80) 100 12/14/19 04:00 98 12/14/19 04:00 22 96/66 Mechanical Ventilator 30 12/14/19 04:00 Mechanical Ventilator 12/14/19 03:55 22 107/69 Mechanical Ventilator 40 12/14/19 03:45 102 23 107/69 (82) 100 12/14/19 03:30 100 24 105/62 (76) 100 12/14/19 03:20 103 23 40 12/14/19 03:15 106 25 128/67 (87) 99 12/14/19 03:00 21 93/63 Mechanical Ventilator 40 12/14/19 03:00 93/63 12/14/19 03:00 98 21 93/63 (73) 99 12/14/19 02:45 105 23 106/67 (80) 99 12/14/19 02:30 101 22 94/56 (69) 98 12/14/19 02:15 100 21 95/54 (68) 97 12/14/19 02:00 21 96/53 Mechanical Ventilator 40 12/14/19 02:00 96/51 12/14/19 02:00 100.6 105 20 96/53 (67) 98 12/14/19 01:45 106 20 93/51 (65) 98 12/14/19 01:30 103 21 95/51 (66) 96 12/14/19 01:15 100.9 104 21 91/52 (65) 96 12/14/19 01:00 108 22 101/57 (72) 97 12/14/19 01:00 21 91/57 Mechanical Ventilator 35 12/14/19 01:00 91/57 12/14/19 00:45 106 21 99/52 (68) 96 12/14/19 00:30 109 21 96/53 (67) 97 12/14/19 00:15 109 21 94/55 (68) 97 12/14/19 00:00 35 12/14/19 00:00 Mechanical Ventilator 12/14/19 00:00 20 103/54 Mechanical Ventilator 35 12/14/19 00:00 103/56 12/14/19 00:00 101.9 110 22 103/54 (70) 95 12/14/19 00:00 110 12/13/19 23:45 113 22 109/62 (78) 12/13/19 23:30 116 24 94/56 (69) 97 12/13/19 23:15 118 24 71/49 (56) 96 12/13/19 23:00 20 102/56 Mechanical Ventilator 40 12/13/19 23:00 102/56 12/13/19 23:00 115 21 106/64 (78) 96 12/13/19 22:44 115 26 40 12/13/19 22:30 115 23 93/69 (77) 96 12/13/19 22:15 112 23 103/59 (74) 96 12/13/19 22:00 114 23 106/56 (73) 96 12/13/19 22:00 20 93/50 Mechanical Ventilator 40 12/13/19 22:00 93/50 12/13/19 21:50 116 109/61 12/13/19 21:45 112 24 100/57 (71) 95 12/13/19 21:30 114 25 98/55 (69) 94 12/13/19 21:17 101.0 12/13/19 21:15 114 23 115/61 (79) 95 20 21:00 113 24 111/64 (80) 94 12/13/19 21:00 20 99/52 Mechanical Ventilator 40 12/13/19 21:00 99/52 12/13/19 20:45 114 21 113/62 (79) 94 5/18/20 20:30 115 23 98/81 (87) 95 5/18/20 20:15 113 25 112/64 (80) 94 5/18/20 20:00 Mechanical Ventilator 518/20 20:00 40 5/18/20 20:00 20 110/65 Mechanical Ventilator 40 518/20 20:00 110/65 5/18/20 20:00 114 5/18/20 20:00 101.2 116 28 117/69 (85) 96 518/20 19:45 113 24 102/58 (73) 94 5/18/20 19:30 116 26 109/61 (77) 95 5/18/20 19:30 116 26 109/61 (77) 95 5/18/20 19:15 113 23 40 518/20 19:15 114 25 111/63 (79) 95 518/20 19:00 25 104/55 Mechanical Ventilator 40 18/20 19:00 104/55 518/20 19:00 114 25 104/55 (71) 95 18/20 18:45 117 27 117/62 (80) 95 18/20 18:30 117 26 112/62 (79) 95 18/20 18:15 121 28 120/60 (80) 95 518/20 18:00 27 120/60 Mechanical Ventilator 40 18/20 18:00 120/60 518/20 18:00 118 29 108/61 (77) 95 518/20 17:45 118 26 140/97 (111) 95 518/20 17:30 114 26 110/65 (80) 97 518/20 17:30 28 140/97 Mechanical Ventilator 40 18/20 17:15 98.0 115 25 119/67 (84) 97 5/18/20 17:12 115 25 119/67 (84) 97 5/18/20 17:00 25 119/67 Mechanical Ventilator 40 518/20 17:00 119/67 518/20 17:00 119 27 110/56 (74) 97 5/18/20 16:45 115 22 103/55 (71) 98 5/18/20 16:30 24 103/55 Mechanical Ventilator 40 518/20 16:30 118 25 103/59 (74) 98 12/13/19 16:15 117 22 103/56 (72) 98 12/13/19 16:00 98.9 120 24 97/61 (73) 96 12/13/19 16:00 23 103/56 Mechanical Ventilator 40 12/13/19 16:00 103/56 12/13/19 16:00 40.0 100 12/13/19 16:00 119 12/13/19 16:00 Mechanical Ventilator 12/13/19 15:45 123 23 99/57 (71) 95 12/13/19 15:30 129 24 113/67 (82) 95 12/13/19 15:24 118 22 40 12/13/19 15:15 128 22 111/59 (76) 95 12/13/19 15:00 111/59 12/13/19 15:00 130 22 109/69 (82) 96 12/13/19 14:45 130 21 105/60 (75) 96 12/13/19 14:30 133 22 107/60 (76) 96 12/13/19 14:15 133 21 119/61 (80) 96 12/13/19 14:00 130 21 123/66 (85) 95 12/13/19 14:00 124/72 12/13/19 13:45 130 21 124/72 (89) 95 12/13/19 13:30 132 21 134/71 (92) 96 12/13/19 13:15 130 21 127/74 (91) 95 12/13/19 13:00 127/74 12/13/19 13:00 126 20 115/59 (77) 96 12/13/19 12:45 126 20 120/60 (80) 96 12/13/19 12:30 129 21 115/60 (78) 96 12/13/19 12:15 126 21 116/67 (83) 96 12/13/19 12:00 99.8 127 21 126/57 (80) 96 12/13/19 12:00 21 116/67 Mechanical Ventilator 40 12/13/19 12:00 116/67 12/13/19 12:00 127 12/13/19 12:00 40.0 100 12/13/19 12:00 Mechanical Ventilator 12/13/19 11:45 127 26 126/61 (82) 99 12/13/19 11:30 121 20 112/54 (73) 97 12/13/19 11:21 120 21 40 12/13/19 11:15 120 20 115/54 (74) 97 12/13/19 11:00 118 20 109/52 (71) 98 12/13/19 11:00 20 115/54 Mechanical Ventilator 40 12/13/19 11:00 115/54 12/13/19 10:45 124 21 116/61 (79) 98 12/13/19 10:30 120 20 100/61 (74) 97 12/13/19 10:15 123 21 115/59 (77) 97 Intake and Output 12/13/19 12/14/19 19:00 07:00 Intake Total 2410.448 ml 1161.86 ml Output Total 2350 ml 1050 ml Balance 60.448 ml 111.86 ml Intake IV Total 1910.448 ml 1161.86 ml Blood Product 500 ml Output Urine Total 2350 ml 1050 ml # Bowel Movements 1 Laboratory Tests 12/14/19 04:00: White Blood Count 8.6, Red Blood Count 2.89L, Hemoglobin 9.0#L, Hematocrit 24.8# L, Mean Corpuscular Volume 86, Mean Corpuscular Hemoglobin 31.0, Mean Corpuscular Hemoglobin Concent 36.2H, Red Cell Distribution Width 12.9, Platelet Count 102L, Mean Platelet Volume 8.7, Neutrophils (%) (Auto) 84.3H, Lymphocytes (%) (Auto) 11.2L, Monocytes (%) (Auto) 2.7, Eosinophils (%) (Auto) 1.3, Basophils (%) (Auto) 0.7, Stool Occult Blood Negative, Sodium Level 159H, Potassium Level 3.5, Chloride Level 125H, Carbon Dioxide Level 24, Anion Gap 11 , Blood Urea Nitrogen 11, Creatinine 0.8, Estimat Glomerular Filtration Rate > 60, Glucose Level 232H, Uric Acid 1.8L, Calcium Level 7.6L, Phosphorus Level 2.1L, Magnesium Level 2.2, Total Bilirubin 0.4, Aspartate Amino Transf (AST/SGOT ) 418H, Alanine Aminotransferase (ALT/SGPT) 275H, Alkaline Phosphatase 79, C- Reactive Protein, Quantitative 48.6H, Pro-B-Type Natriuretic Peptide 2368H, Total Protein 4.5L, Albumin 1.7L, Globulin 2.8, Albumin/Globulin Ratio 0.6L 12/14/19 07:54: Arterial Blood pH 7.389, Arterial Blood Partial Pressure CO2 34.7L, Arterial Blood Partial Pressure O2 62.0L, Arterial Blood HCO3 20.5L, Arterial Blood Oxygen Saturation 91.1L, Arterial Blood Base Excess -4.0L, Scotty Test N/a Height (Feet): 5 Height (Inches): 5.00 Weight (Pounds): 147 General Appearance: no apparent distress EENT: normal ENT inspection Neck: supple Cardiovascular: normal rate Respiratory/Chest: decreased breath sounds Abdomen: normal bowel sounds, non tender, soft Extremities: non-tender Maykel Stephen MD December 14, 2019 10:06
--- NOTE | 2019-12-14 10:24 | Nephrology Progress Note ---
Assessment/Plan Problem List: (1) DEANDRA (acute kidney injury) Assessment: Resolved (2) Hypotension (3) Cardiac arrest (4) DKA (diabetic ketoacidoses) (5) Respiratory distress (6) Coffee ground emesis (7) Electrolyte imbalance Assessment Acute renal failure which probably is superimposed on chronic kidney disease History of diabetes mellitus, most likely diabetic nephropathy. Presents with diabetic ketoacidosis Acute respiratory failure requiring intubation and mechanical ventilation Aspiration pneumonia, upper GI bleed Proteinuria and severe hypoalbuminemia should rule out nephrotic range proteinuria Anemia Electrolyte imbalances Plan Suggestions: 2 units of packed RBCs was transfused Hydrate as needed Correct electrolytes Accurate intake and output Monitor renal parameters Avoid nephrotoxic's Anemia work-up Urine studies Keep blood sugar and blood pressure in check Per consultants Discussed with RN Subjective ROS Limited/Unobtainable: Yes Objective Objective Last 24 Hour Vital Signs Date Time Temp Pulse Resp B/P (MAP) Pulse Ox O2 Delivery O2 Flow Rate FiO2 12/14/19 09:30 108 27 30 30 12/14/19 09:29 95 12/14/19 07:45 103 25 98/67 (77) 99 12/14/19 07:30 103 27 99/73 (82) 99 12/14/19 07:18 107 27 30 12/14/19 07:00 25 115/80 Mechanical Ventilator 40 12/14/19 07:00 99 25 115/80 (92) 99 12/14/19 06:45 108 21 110/78 (89) 99 12/14/19 06:30 97 25 103/67 (79) 96 12/14/19 06:17 98 21 12/14/19 06:15 107 25 106/77 (87) 95 12/14/19 06:00 20 96/57 Mechanical Ventilator 30 12/14/19 06:00 99.6 97 23 97/65 (76) 99 12/14/19 05:45 96 23 94/54 (67) 99 12/14/19 05:30 96 22 98/61 (73) 99 12/14/19 05:15 98 22 106/66 (79) 98 12/14/19 05:00 20 96/60 Mechanical Ventilator 30 12/14/19 05:00 99.7 96 24 90/62 (71) 98 12/14/19 04:45 97 22 98/71 (80) 98 12/14/19 04:30 95 24 95/66 (76) 98 12/14/19 04:15 99 24 106/70 (82) 12/14/19 04:00 30 12/14/19 04:00 99.9 105 24 110/65 (80) 100 12/14/19 04:00 98 12/14/19 04:00 22 96/66 Mechanical Ventilator 30 12/14/19 04:00 Mechanical Ventilator 12/14/19 03:55 22 107/69 Mechanical Ventilator 40 12/14/19 03:45 102 23 107/69 (82) 100 12/14/19 03:30 100 24 105/62 (76) 100 12/14/19 03:20 103 23 40 12/14/19 03:15 106 25 128/67 (87) 99 12/14/19 03:00 21 93/63 Mechanical Ventilator 40 12/14/19 03:00 93/63 12/14/19 03:00 98 21 93/63 (73) 99 12/14/19 02:45 105 23 106/67 (80) 99 12/14/19 02:30 101 22 94/56 (69) 98 12/14/19 02:15 100 21 95/54 (68) 97 12/14/19 02:00 21 96/53 Mechanical Ventilator 40 12/14/19 02:00 96/51 12/14/19 02:00 100.6 105 20 96/53 (67) 98 12/14/19 01:45 106 20 93/51 (65) 98 12/14/19 01:30 103 21 95/51 (66) 96 12/14/19 01:15 100.9 104 21 91/52 (65) 96 12/14/19 01:00 108 22 101/57 (72) 97 12/14/19 01:00 21 91/57 Mechanical Ventilator 35 12/14/19 01:00 91/57 12/14/19 00:45 106 21 99/52 (68) 96 12/14/19 00:30 109 21 96/53 (67) 97 12/14/19 00:15 109 21 94/55 (68) 97 12/14/19 00:00 35 12/14/19 00:00 Mechanical Ventilator 12/14/19 00:00 20 103/54 Mechanical Ventilator 35 12/14/19 00:00 103/56 5/19/20 00:00 101.9 110 22 103/54 (70) 95 5/19/20 00:00 110 5/18/20 23:45 113 22 109/62 (78) 518/20 23:30 116 24 94/56 (69) 97 5/18/20 23:15 118 24 71/49 (56) 96 5/18/20 23:00 20 102/56 Mechanical Ventilator 40 1820 23:00 102/56 51820 23:00 115 21 106/64 (78) 96 18/20 22:44 115 26 40 5/18/20 22:30 115 23 93/69 (77) 96 12/12/20 22:15 112 23 103/59 (74) 96 20 22:00 114 23 106/56 (73) 96 1820 22:00 20 93/50 Mechanical Ventilator 40 20 22:00 93/50 20 21:50 116 109/61 1820 21:45 112 24 100/57 (71) 95 18/20 21:30 114 25 98/55 (69) 94 18/20 21:17 101.0 518/20 21:15 114 23 115/61 (79) 95 18/20 21:00 113 24 111/64 (80) 94 18/20 21:00 20 99/52 Mechanical Ventilator 40 20 21:00 99/52 518/20 20:45 114 21 113/62 (79) 94 1820 20:30 115 23 98/81 (87) 95 1820 20:15 113 25 112/64 (80) 94 18/20 20:00 Mechanical Ventilator 518/20 20:00 40 518/20 20:00 20 110/65 Mechanical Ventilator 40 18/20 20:00 110/65 518/20 20:00 114 5/18/20 20:00 101.2 116 28 117/69 (85) 96 12/12/20 19:45 113 24 102/58 (73) 94 5/18/20 19:30 116 26 109/61 (77) 95 5/18/20 19:30 116 26 109/61 (77) 95 5/18/20 19:15 113 23 40 518/20 19:15 114 25 111/63 (79) 95 18/20 19:00 25 104/55 Mechanical Ventilator 40 18/20 19:00 104/55 518/20 19:00 114 25 104/55 (71) 95 12/12/20 18:45 117 27 117/62 (80) 95 12/12/20 18:30 117 26 112/62 (79) 95 18/20 18:15 121 28 120/60 (80) 95 18/20 18:00 27 120/60 Mechanical Ventilator 40 12/12/20 18:00 120/60 5/20 18:00 118 29 108/61 (77) 95 12/12/20 17:45 118 26 140/97 (111) 95 12/12/20 17:30 114 26 110/65 (80) 97 18/20 17:30 28 140/97 Mechanical Ventilator 40 12/13/19 17:15 98.0 115 25 119/67 (84) 97 18/20 17:12 115 25 119/67 (84) 97 18/20 17:00 25 119/67 Mechanical Ventilator 40 20 17:00 119/67 20 17:00 119 27 110/56 (74) 97 12/12/20 16:45 115 22 103/55 (71) 98 18/20 16:30 24 103/55 Mechanical Ventilator 40 20 16:30 118 25 103/59 (74) 98 18/20 16:15 117 22 103/56 (72) 98 12/12/20 16:00 98.9 120 24 97/61 (73) 96 12/12/20 16:00 23 103/56 Mechanical Ventilator 40 20 16:00 103/56 12/12/20 16:00 40.0 100 20 16:00 119 1820 16:00 Mechanical Ventilator 20 15:45 123 23 99/57 (71) 95 20 15:30 129 24 113/67 (82) 95 20 15:24 118 22 40 20 15:15 128 22 111/59 (76) 95 5/18/20 15:00 111/59 12/13/19 15:00 130 22 109/69 (82) 96 12/13/19 14:45 130 21 105/60 (75) 96 12/13/19 14:30 133 22 107/60 (76) 96 12/13/19 14:15 133 21 119/61 (80) 96 12/13/19 14:00 130 21 123/66 (85) 95 12/13/19 14:00 124/72 12/13/19 13:45 130 21 124/72 (89) 95 12/13/19 13:30 132 21 134/71 (92) 96 12/13/19 13:15 130 21 127/74 (91) 95 12/13/19 13:00 127/74 12/13/19 13:00 126 20 115/59 (77) 96 12/13/19 12:45 126 20 120/60 (80) 96 12/13/19 12:30 129 21 115/60 (78) 96 12/13/19 12:15 126 21 116/67 (83) 96 12/13/19 12:00 99.8 127 21 126/57 (80) 96 12/13/19 12:00 21 116/67 Mechanical Ventilator 40 12/13/19 12:00 116/67 12/13/19 12:00 127 12/13/19 12:00 40.0 100 12/13/19 12:00 Mechanical Ventilator 12/13/19 11:45 127 26 126/61 (82) 99 12/13/19 11:30 121 20 112/54 (73) 97 12/13/19 11:21 120 21 40 12/13/19 11:15 120 20 115/54 (74) 97 12/13/19 11:00 118 20 109/52 (71) 98 12/13/19 11:00 20 115/54 Mechanical Ventilator 40 12/13/19 11:00 115/54 12/13/19 10:45 124 21 116/61 (79) 98 12/13/19 10:30 120 20 100/61 (74) 97 Intake and Output 12/13/19 12/14/19 19:00 07:00 Intake Total 2410.448 ml 1161.86 ml Output Total 2350 ml 1050 ml Balance 60.448 ml 111.86 ml Intake IV Total 1910.448 ml 1161.86 ml Blood Product 500 ml Output Urine Total 2350 ml 1050 ml # Bowel Movements 1 Laboratory Tests 12/14/19 04:00: White Blood Count 8.6, Red Blood Count 2.89L, Hemoglobin 9.0#L, Hematocrit 24.8# L, Mean Corpuscular Volume 86, Mean Corpuscular Hemoglobin 31.0, Mean Corpuscular Hemoglobin Concent 36.2H, Red Cell Distribution Width 12.9, Platelet Count 102L, Mean Platelet Volume 8.7, Neutrophils (%) (Auto) 84.3H, Lymphocytes (%) (Auto) 11.2L, Monocytes (%) (Auto) 2.7, Eosinophils (%) (Auto) 1.3, Basophils (%) (Auto) 0.7, Stool Occult Blood Negative, Sodium Level 159H, Potassium Level 3.5, Chloride Level 125H, Carbon Dioxide Level 24, Anion Gap 11 , Blood Urea Nitrogen 11, Creatinine 0.8, Estimat Glomerular Filtration Rate > 60, Glucose Level 232H, Uric Acid 1.8L, Calcium Level 7.6L, Phosphorus Level 2.1L, Magnesium Level 2.2, Total Bilirubin 0.4, Aspartate Amino Transf (AST/SGOT ) 418H, Alanine Aminotransferase (ALT/SGPT) 275H, Alkaline Phosphatase 79, C- Reactive Protein, Quantitative 48.6H, Pro-B-Type Natriuretic Peptide 2368H, Total Protein 4.5L, Albumin 1.7L, Globulin 2.8, Albumin/Globulin Ratio 0.6L 12/14/19 07:54: Arterial Blood pH 7.389, Arterial Blood Partial Pressure CO2 34.7L, Arterial Blood Partial Pressure O2 62.0L, Arterial Blood HCO3 20.5L, Arterial Blood Oxygen Saturation 91.1L, Arterial Blood Base Excess -4.0L, Scotty Test N/a Height (Feet): 5 Height (Inches): 5.00 Weight (Pounds): 147 General Appearance: no apparent distress EENT: other - Intubated on mechanical ventilation Cardiovascular: tachycardia Respiratory/Chest: decreased breath sounds Abdomen: soft Don Ventura MD December 14, 2019 10:24
[2019-12-14] MEDS ORDERED: Potassium Phosphate 20 MM in NS 275 ML IV ONE (11:00)
--- NOTE | 2019-12-14 12:51 | Cardiac Electrophysiology PN ---
Assessment/Plan Assessment/Plan 1. S/P Septic shock. Off pressors. Echocardiogram EF 60%. EKG shows sinus tachycardia with no acute ST-T wave abnormalities. The patient already on broad-spectrum IV antibiotic 2. Respiratory failure, on the ventilator, likely with aspiration pneumonia. The patient with coffee-grounds emesis.Extubation pending 3. History of hypertension 4. Coffee-ground emesis.S/P 2 units of PRBC 5. Diabetic ketoacidosis off insulin drip. MICAELA RN Subjective Subjective In ICU on the Vent off pressors and fentanyl. Extubation pending soon. S/P 2 units of PRBC in sinus tach. Covid test from today results pending Objective Last 24 Hour Vital Signs Date Time Temp Pulse Resp B/P (MAP) Pulse Ox O2 Delivery O2 Flow Rate FiO2 12/14/19 12:00 105 12/14/19 12:00 Mechanical Ventilator 12/14/19 12:00 100.0 102 29 105/87 (93) 12/14/19 11:45 103 28 100/62 (75) 12/14/19 11:30 105 28 106/62 (77) 99 12/14/19 11:23 105 30 30 30 12/14/19 11:15 106 32 109/72 (84) 98 12/14/19 11:00 101 27 99/64 (76) 97 12/14/19 10:45 108 26 103/65 (78) 96 12/14/19 10:30 103 26 104/65 (78) 97 12/14/19 10:15 105 26 105/68 (80) 98 12/14/19 10:00 104 26 97/65 (76) 99 12/14/19 09:45 106 25 109/64 (79) 99 12/14/19 09:30 108 27 30 30 12/14/19 09:30 30 12/14/19 09:30 107 26 111/72 (85) 99 12/14/19 09:29 95 12/14/19 09:15 108 27 104/73 (83) 97 12/14/19 09:00 107 25 106/69 (81) 99 12/14/19 09:00 25 106/69 Mechanical Ventilator 30 12/14/19 08:45 103 24 106/85 (92) 99 12/14/19 08:30 99 24 93/61 (72) 98 12/14/19 08:15 111 28 126/74 (91) 98 12/14/19 08:00 30 12/14/19 08:00 107 12/14/19 08:00 25 107/69 Mechanical Ventilator 30 12/14/19 08:00 99.9 109 25 107/69 (82) 99 12/14/19 08:00 Mechanical Ventilator 12/14/19 07:45 103 25 98/67 (77) 99 12/14/19 07:30 103 27 99/73 (82) 99 12/14/19 07:18 107 27 30 12/14/19 07:00 25 115/80 Mechanical Ventilator 40 12/14/19 07:00 99 25 115/80 (92) 99 12/14/19 06:45 108 21 110/78 (89) 99 12/14/19 06:30 97 25 103/67 (79) 96 12/14/19 06:17 98 21 12/14/19 06:15 107 25 106/77 (87) 95 12/14/19 06:00 20 96/57 Mechanical Ventilator 30 12/14/19 06:00 99.6 97 23 97/65 (76) 99 12/14/19 05:45 96 23 94/54 (67) 99 12/14/19 05:30 96 22 98/61 (73) 99 12/14/19 05:15 98 22 106/66 (79) 98 12/14/19 05:00 20 96/60 Mechanical Ventilator 30 12/14/19 05:00 99.7 96 24 90/62 (71) 98 12/14/19 04:45 97 22 98/71 (80) 98 12/14/19 04:30 95 24 95/66 (76) 98 12/14/19 04:15 99 24 106/70 (82) 12/14/19 04:00 30 12/14/19 04:00 99.9 105 24 110/65 (80) 100 12/14/19 04:00 98 12/14/19 04:00 22 96/66 Mechanical Ventilator 30 12/14/19 04:00 Mechanical Ventilator 12/14/19 03:55 22 107/69 Mechanical Ventilator 40 12/14/19 03:45 102 23 107/69 (82) 100 12/14/19 03:30 100 24 105/62 (76) 100 12/14/19 03:20 103 23 40 12/14/19 03:15 106 25 128/67 (87) 99 12/14/19 03:00 21 93/63 Mechanical Ventilator 40 12/14/19 03:00 93/63 12/14/19 03:00 98 21 93/63 (73) 99 12/14/19 02:45 105 23 106/67 (80) 99 12/14/19 02:30 101 22 94/56 (69) 98 12/14/19 02:15 100 21 95/54 (68) 97 12/14/19 02:00 21 96/53 Mechanical Ventilator 40 12/14/19 02:00 96/51 12/14/19 02:00 100.6 105 20 96/53 (67) 98 12/14/19 01:45 106 20 93/51 (65) 98 12/14/19 01:30 103 21 95/51 (66) 96 12/14/19 01:15 100.9 104 21 91/52 (65) 96 12/14/19 01:00 108 22 101/57 (72) 97 12/14/19 01:00 21 91/57 Mechanical Ventilator 35 12/14/19 01:00 91/57 12/14/19 00:45 106 21 99/52 (68) 96 12/14/19 00:30 109 21 96/53 (67) 97 12/14/19 00:15 109 21 94/55 (68) 97 12/14/19 00:00 35 12/14/19 00:00 Mechanical Ventilator 12/14/19 00:00 20 103/54 Mechanical Ventilator 35 12/14/19 00:00 103/56 12/14/19 00:00 101.9 110 22 103/54 (70) 95 12/14/19 00:00 110 12/13/19 23:45 113 22 109/62 (78) 12/13/19 23:30 116 24 94/56 (69) 97 12/13/19 23:15 118 24 71/49 (56) 96 12/13/19 23:00 20 102/56 Mechanical Ventilator 40 12/13/19 23:00 102/56 12/13/19 23:00 115 21 106/64 (78) 96 12/13/19 22:44 115 26 40 5/18/20 22:30 115 23 93/69 (77) 96 5/18/20 22:15 112 23 103/59 (74) 96 5/18/20 22:00 114 23 106/56 (73) 96 5/18/20 22:00 20 93/50 Mechanical Ventilator 40 5/18/20 22:00 93/50 518/20 21:50 116 109/61 5/18/20 21:45 112 24 100/57 (71) 95 518/20 21:30 114 25 98/55 (69) 94 518/20 21:17 101.0 518/20 21:15 114 23 115/61 (79) 95 518/20 21:00 113 24 111/64 (80) 94 518/20 21:00 20 99/52 Mechanical Ventilator 40 18/20 21:00 99/52 518/20 20:45 114 21 113/62 (79) 94 518/20 20:30 115 23 98/81 (87) 95 1820 20:15 113 25 112/64 (80) 94 518/20 20:00 Mechanical Ventilator 1820 20:00 40 5/18/20 20:00 20 110/65 Mechanical Ventilator 40 18/20 20:00 110/65 518/20 20:00 114 518/20 20:00 101.2 116 28 117/69 (85) 96 18/20 19:45 113 24 102/58 (73) 94 518/20 19:30 116 26 109/61 (77) 95 518/20 19:30 116 26 109/61 (77) 95 518/20 19:15 113 23 40 5/18/20 19:15 114 25 111/63 (79) 95 5/18/20 19:00 25 104/55 Mechanical Ventilator 40 518/20 19:00 104/55 5/18/20 19:00 114 25 104/55 (71) 95 5/18/20 18:45 117 27 117/62 (80) 95 5/18/20 18:30 117 26 112/62 (79) 95 5/18/20 18:15 121 28 120/60 (80) 95 518/20 18:00 27 120/60 Mechanical Ventilator 40 5/18/20 18:00 120/60 12/13/19 18:00 118 29 108/61 (77) 95 12/13/19 17:45 118 26 140/97 (111) 95 12/13/19 17:30 114 26 110/65 (80) 97 12/13/19 17:30 28 140/97 Mechanical Ventilator 40 12/13/19 17:15 98.0 115 25 119/67 (84) 97 12/13/19 17:12 115 25 119/67 (84) 97 20 17:00 25 119/67 Mechanical Ventilator 40 12/13/19 17:00 119/67 12/13/19 17:00 119 27 110/56 (74) 97 12/13/19 16:45 115 22 103/55 (71) 98 12/13/19 16:30 24 103/55 Mechanical Ventilator 40 12/13/19 16:30 118 25 103/59 (74) 98 12/13/19 16:15 117 22 103/56 (72) 98 12/13/19 16:00 98.9 120 24 97/61 (73) 96 12/13/19 16:00 23 103/56 Mechanical Ventilator 40 12/13/19 16:00 103/56 12/13/19 16:00 100 12/13/19 16:00 119 12/13/19 16:00 Mechanical Ventilator 12/13/19 15:45 123 23 99/57 (71) 95 12/13/19 15:30 129 24 113/67 (82) 95 12/13/19 15:24 118 22 40 12/13/19 15:15 128 22 111/59 (76) 95 12/13/19 15:00 111/59 12/13/19 15:00 130 22 109/69 (82) 96 12/13/19 14:45 130 21 105/60 (75) 96 12/13/19 14:30 133 22 107/60 (76) 96 12/13/19 14:15 133 21 119/61 (80) 96 12/13/19 14:00 130 21 123/66 (85) 95 12/13/19 14:00 124/72 12/13/19 13:45 130 21 124/72 (89) 95 12/13/19 13:30 132 21 134/71 (92) 96 12/13/19 13:15 130 21 127/74 (91) 95 12/13/19 13:00 127/74 12/13/19 13:00 126 20 115/59 (77) 96 Intake and Output 12/13/19 12/14/19 19:00 07:00 Intake Total 2410.448 ml 1161.86 ml Output Total 2350 ml 1050 ml Balance 60.448 ml 111.86 ml Intake IV Total 1910.448 ml 1161.86 ml Blood Product 500 ml Output Urine Total 2350 ml 1050 ml # Bowel Movements 1 Laboratory Tests Test 12/14/19 04:00 12/14/19 07:54 12/14/19 10:46 White Blood Count 8.6 K/UL (4.8-10.8) Red Blood Count 2.89 M/UL (4.20-5.40) L Hemoglobin 9.0 G/DL (12.0-16.0) #L Hematocrit 24.8 % (37.0-47.0) #L Mean Corpuscular Volume 86 FL (80-99) Mean Corpuscular Hemoglobin 31.0 PG (27.0-31.0) Mean Corpuscular Hemoglobin Concent 36.2 G/DL (32.0-36.0) H Red Cell Distribution Width 12.9 % (11.6-14.8) Platelet Count 102 K/UL (150-450) L Mean Platelet Volume 8.7 FL (6.5-10.1) Neutrophils (%) (Auto) 84.3 % (45.0-75.0) H Lymphocytes (%) (Auto) 11.2 % (20.0-45.0) L Monocytes (%) (Auto) 2.7 % (1.0-10.0) Eosinophils (%) (Auto) 1.3 % (0.0-3.0) Basophils (%) (Auto) 0.7 % (0.0-2.0) Stool Occult Blood Negative (NEGATIVE) Sodium Level 159 MMOL/L (136-145) H Potassium Level 3.5 MMOL/L (3.5-5.1) Chloride Level 125 MMOL/L (98-107) H Carbon Dioxide Level 24 MMOL/L (21-32) Anion Gap 11 mmol/L (5-15) Blood Urea Nitrogen 11 mg/dL (7-18) Creatinine 0.8 MG/DL (0.55-1.30) Estimat Glomerular Filtration Rate > 60 mL/min (>60) Glucose Level 232 MG/DL (74-106) H Uric Acid 1.8 MG/DL (2.6-7.2) L Calcium Level 7.6 MG/DL (8.5-10.1) L Phosphorus Level 2.1 MG/DL (2.5-4.9) L Magnesium Level 2.2 MG/DL (1.8-2.4) Total Bilirubin 0.4 MG/DL (0.2-1.0) Aspartate Amino Transf (AST/SGOT) 418 U/L (15-37) H Alanine Aminotransferase (ALT/SGPT) 275 U/L (12-78) H Alkaline Phosphatase 79 U/L (46-116) C-Reactive Protein, Quantitative 48.6 mg/dL (0.00-0.90) H Pro-B-Type Natriuretic Peptide 2368 pg/mL (0-125) H Total Protein 4.5 G/DL (6.4-8.2) L Albumin 1.7 G/DL (3.4-5.0) L Globulin 2.8 g/dL Albumin/Globulin Ratio 0.6 (1.0-2.7) L Arterial Blood pH 7.389 (7.350-7.450) 7.444 (7.350-7.450) Arterial Blood Partial Pressure CO2 34.7 mmHg (35.0-45.0) L 30.5 mmHg (35.0-45.0) L Arterial Blood Partial Pressure O2 62.0 mmHg (75.0-100.0) L 77.3 mmHg (75.0-100.0) Arterial Blood HCO3 20.5 mmol/L (22.0-26.0) L 20.4 mmol/L (22.0-26.0) L Arterial Blood Oxygen Saturation 91.1 % (95-100) L 95.4 % (95-100) Arterial Blood Base Excess -4.0 (-2-2) L -3.0 (-2-2) L Scotty Test N/a Positive Objective HEAD AND NECK: Orally intubated. LUNGS: Coarse rhonchi. CARDIOVASCULAR: Irregular S1-S2 and tachycardic. ABDOMEN: Soft. EXTREMITIES: No pitting edema. Gerardo Deyr MD December 14, 2019 12:51
--- NOTE | 2019-12-14 15:28 | Pulmonology Progress Note ---
Subjective ROS Limited/Unobtainable: Yes Interval Events: Extuabted today Constitutional: Reports: no symptoms HEENT: Repors: no symptoms Respiratory: Reports: no symptoms Cardiovascular: Reports: no symptoms Gastrointestinal/Abdominal: Reports: no symptoms Genitourinary: Reports: no symptoms Allergies: Coded Allergies: No Known Allergies (Unverified , 12/11/19) Objective Last 24 Hour Vital Signs Date Time Temp Pulse Resp B/P (MAP) Pulse Ox O2 Delivery O2 Flow Rate FiO2 12/14/19 15:00 107 29 140/90 (107) 97 12/14/19 14:45 108 27 101/78 (86) 100 12/14/19 14:30 112 29 125/74 (91) 100 12/14/19 14:00 105 27 136/119 (125) 94 12/14/19 13:30 111 24 101/62 (75) 95 12/14/19 13:15 108 27 134/103 (113) 94 12/14/19 13:00 112 30 151/121 (131) 96 12/14/19 12:48 Nasal Cannula 4.0 36 12/14/19 12:45 114 32 120/102 (108) 98 12/14/19 12:30 4.0 12/14/19 12:30 102 27 118/93 (101) 98 12/14/19 12:15 101 28 91/69 (76) 99 12/14/19 12:00 105 12/14/19 12:00 Mechanical Ventilator 12/14/19 12:00 30 12/14/19 12:00 100.0 102 29 105/87 (93) 12/14/19 11:45 103 28 100/62 (75) 12/14/19 11:30 105 28 106/62 (77) 99 12/14/19 11:23 105 30 30 30 12/14/19 11:15 106 32 109/72 (84) 98 12/14/19 11:00 101 27 99/64 (76) 97 12/14/19 10:45 108 26 103/65 (78) 96 12/14/19 10:30 103 26 104/65 (78) 97 12/14/19 10:15 105 26 105/68 (80) 98 12/14/19 10:00 104 26 97/65 (76) 99 5/19/20 09:45 106 25 109/64 (79) 99 12/14/19 09:30 108 27 30 30 12/14/19 09:30 30 12/14/19 09:30 107 26 111/72 (85) 99 12/14/19 09:29 95 5 09:15 108 27 104/73 (83) 97 12/14/19 09:00 107 25 106/69 (81) 99 12/14/19 09:00 25 106/69 Mechanical Ventilator 30 12/14/19 08:45 103 24 106/85 (92) 99 12/14/19 08:30 99 24 93/61 (72) 98 12/14/19 08:15 111 28 126/74 (91) 98 12/14/19 08:00 30 12/14/19 08:00 107 12/14/19 08:00 25 107/69 Mechanical Ventilator 30 12/14/19 08:00 99.9 109 25 107/69 (82) 99 12/14/19 08:00 Mechanical Ventilator 12/14/19 07:45 103 25 98/67 (77) 99 12/14/19 07:30 103 27 99/73 (82) 99 12/14/19 07:18 107 27 30 12/14/19 07:00 25 115/80 Mechanical Ventilator 40 12/14/19 07:00 99 25 115/80 (92) 99 12/14/19 06:45 108 21 110/78 (89) 99 12/14/19 06:30 97 25 103/67 (79) 96 12/14/19 06:17 98 21 12/14/19 06:15 107 25 106/77 (87) 95 12/14/19 06:00 20 96/57 Mechanical Ventilator 30 12/14/19 06:00 99.6 97 23 97/65 (76) 99 12/14/19 05:45 96 23 94/54 (67) 99 12/14/19 05:30 96 22 98/61 (73) 99 12/14/19 05:15 98 22 106/66 (79) 98 12/14/19 05:00 20 96/60 Mechanical Ventilator 30 12/14/19 05:00 99.7 96 24 90/62 (71) 98 12/14/19 04:45 97 22 98/71 (80) 98 12/14/19 04:30 95 24 95/66 (76) 98 12/14/19 04:15 99 24 106/70 (82) 12/14/19 04:00 30 12/14/19 04:00 99.9 105 24 110/65 (80) 100 12/14/19 04:00 98 12/14/19 04:00 22 96/66 Mechanical Ventilator 30 12/14/19 04:00 Mechanical Ventilator 12/14/19 03:55 22 107/69 Mechanical Ventilator 40 12/14/19 03:45 102 23 107/69 (82) 100 12/14/19 03:30 100 24 105/62 (76) 100 12/14/19 03:20 103 23 40 12/14/19 03:15 106 25 128/67 (87) 99 12/14/19 03:00 21 93/63 Mechanical Ventilator 40 12/14/19 03:00 93/63 12/14/19 03:00 98 21 93/63 (73) 99 12/14/19 02:45 105 23 106/67 (80) 99 12/14/19 02:30 101 22 94/56 (69) 98 12/14/19 02:15 100 21 95/54 (68) 97 12/14/19 02:00 21 96/53 Mechanical Ventilator 40 12/14/19 02:00 96/51 12/14/19 02:00 100.6 105 20 96/53 (67) 98 12/14/19 01:45 106 20 93/51 (65) 98 12/14/19 01:30 103 21 95/51 (66) 96 12/14/19 01:15 100.9 104 21 91/52 (65) 96 12/14/19 01:00 108 22 101/57 (72) 97 12/14/19 01:00 21 91/57 Mechanical Ventilator 35 12/14/19 01:00 91/57 12/14/19 00:45 106 21 99/52 (68) 96 12/14/19 00:30 109 21 96/53 (67) 97 12/14/19 00:15 109 21 94/55 (68) 97 12/14/19 00:00 35 12/14/19 00:00 Mechanical Ventilator 12/14/19 00:00 20 103/54 Mechanical Ventilator 35 12/14/19 00:00 103/56 5/19/20 00:00 101.9 110 22 103/54 (70) 95 5/19/20 00:00 110 5/18/20 23:45 113 22 109/62 (78) 518/20 23:30 116 24 94/56 (69) 97 5/18/20 23:15 118 24 71/49 (56) 96 518/20 23:00 20 102/56 Mechanical Ventilator 40 1820 23:00 102/56 520 23:00 115 21 106/64 (78) 96 5/18/20 22:44 115 26 40 5/18/20 22:30 115 23 93/69 (77) 96 20 22:15 112 23 103/59 (74) 96 20 22:00 114 23 106/56 (73) 96 20 22:00 20 93/50 Mechanical Ventilator 40 20 22:00 93/50 20 21:50 116 109/61 20 21:45 112 24 100/57 (71) 95 518/20 21:30 114 25 98/55 (69) 94 518/20 21:17 101.0 518/20 21:15 114 23 115/61 (79) 95 518/20 21:00 113 24 111/64 (80) 94 518/20 21:00 20 99/52 Mechanical Ventilator 40 1820 21:00 99/52 518/20 20:45 114 21 113/62 (79) 94 518/20 20:30 115 23 98/81 (87) 95 518/20 20:15 113 25 112/64 (80) 94 518/20 20:00 Mechanical Ventilator 518/20 20:00 40 5/18/20 20:00 20 110/65 Mechanical Ventilator 40 518/20 20:00 110/65 5/18/20 20:00 114 5/18/20 20:00 101.2 116 28 117/69 (85) 96 518/20 19:45 113 24 102/58 (73) 94 518/20 19:30 116 26 109/61 (77) 95 5/18/20 19:30 116 26 109/61 (77) 95 5/18/20 19:15 113 23 40 518/20 19:15 114 25 111/63 (79) 95 18/20 19:00 25 104/55 Mechanical Ventilator 40 20 19:00 104/55 518/20 19:00 114 25 104/55 (71) 95 18/20 18:45 117 27 117/62 (80) 95 20 18:30 117 26 112/62 (79) 95 20 18:15 121 28 120/60 (80) 95 18/20 18:00 27 120/60 Mechanical Ventilator 40 20 18:00 120/60 20 18:00 118 29 108/61 (77) 95 20 17:45 118 26 140/97 (111) 95 20 17:30 114 26 110/65 (80) 97 18/20 17:30 28 140/97 Mechanical Ventilator 40 12/13/19 17:15 98.0 115 25 119/67 (84) 97 18/20 17:12 115 25 119/67 (84) 97 18/20 17:00 25 119/67 Mechanical Ventilator 40 20 17:00 119/67 1820 17:00 119 27 110/56 (74) 97 20 16:45 115 22 103/55 (71) 98 20 16:30 24 103/55 Mechanical Ventilator 40 20 16:30 118 25 103/59 (74) 98 12/12/20 16:15 117 22 103/56 (72) 98 20 16:00 98.9 120 24 97/61 (73) 96 20 16:00 23 103/56 Mechanical Ventilator 40 20 16:00 103/56 20 16:00 100 20 16:00 119 18 16:00 Mechanical Ventilator 20 15:45 123 23 99/57 (71) 95 20 15:30 129 24 113/67 (82) 95 Intake and Output 20 520 19:00 07:00 Intake Total 2410.448 ml 1161.86 ml Output Total 2350 ml 1050 ml Balance 60.448 ml 111.86 ml Intake IV Total 1910.448 ml 1161.86 ml Blood Product 500 ml Output Urine Total 2350 ml 1050 ml # Bowel Movements 1 General Appearance: no acute distress HEENT: normocephalic Respiratory: chest wall non-tender, lungs clear Cardiovascular: normal peripheral pulses, normal rate Abdomen: normal bowel sounds Laboratory Tests 12/14/19 04:00: White Blood Count 8.6, Red Blood Count 2.89L, Hemoglobin 9.0#L, Hematocrit 24.8# L, Mean Corpuscular Volume 86, Mean Corpuscular Hemoglobin 31.0, Mean Corpuscular Hemoglobin Concent 36.2H, Red Cell Distribution Width 12.9, Platelet Count 102L, Mean Platelet Volume 8.7, Neutrophils (%) (Auto) 84.3H, Lymphocytes (%) (Auto) 11.2L, Monocytes (%) (Auto) 2.7, Eosinophils (%) (Auto) 1.3, Basophils (%) (Auto) 0.7, Stool Occult Blood Negative, Sodium Level 159H, Potassium Level 3.5, Chloride Level 125H, Carbon Dioxide Level 24, Anion Gap 11 , Blood Urea Nitrogen 11, Creatinine 0.8, Estimat Glomerular Filtration Rate > 60, Glucose Level 232H, Uric Acid 1.8L, Calcium Level 7.6L, Phosphorus Level 2.1L, Magnesium Level 2.2, Total Bilirubin 0.4, Aspartate Amino Transf (AST/SGOT ) 418H, Alanine Aminotransferase (ALT/SGPT) 275H, Alkaline Phosphatase 79, C- Reactive Protein, Quantitative 48.6H, Pro-B-Type Natriuretic Peptide 2368H, Total Protein 4.5L, Albumin 1.7L, Globulin 2.8, Albumin/Globulin Ratio 0.6L 12/14/19 07:54: Arterial Blood pH 7.389, Arterial Blood Partial Pressure CO2 34.7L, Arterial Blood Partial Pressure O2 62.0L, Arterial Blood HCO3 20.5L, Arterial Blood Oxygen Saturation 91.1L, Arterial Blood Base Excess -4.0L, Scotty Test N/a 12/14/19 10:46: Arterial Blood pH 7.444, Arterial Blood Partial Pressure CO2 30.5L, Arterial Blood Partial Pressure O2 77.3, Arterial Blood HCO3 20.4L, Arterial Blood Oxygen Saturation 95.4, Arterial Blood Base Excess -3.0L, Scotty Test Positive Current Medications Medications (Trade) Dose Ordered Sig/Esequiel Route PRN Reason Start Time Stop Time Status Last Admin Dose Admin Acetaminophen (Tylenol) 650 mg Q4H PRN GT Mild Pain (Pain Scale 1-3) 12/11/19 16:45 01/10/20 16:44 12/13/19 20:41 Acetaminophen (Tylenol) 650 mg Q4H PRN RECTAL Mild Pain (Pain Scale 1-3) 12/11/19 16:45 01/10/20 16:44 12/12/19 13:14 Chlorhexidine Gluconate (Bijal-Hex 2%) 1 applic DAILY@2000 TOPIC 12/12/19 20:00 03/11/20 19:59 12/13/19 20:00 Dextrose 1,000 ml @ 50 mls/hr Q20H IV 12/14/19 09:00 01/13/20 08:59 12/14/19 09:00 Dextrose (Dextrose 50%) 25 ml Q30M PRN IV Hypoglycemia 12/13/19 02:00 03/12/20 01:59 Dextrose (Dextrose 50%) 50 ml Q30M PRN IV Hypoglycemia 12/13/19 02:00 03/12/20 01:59 Fentanyl Citrate 250 ml @ 0 mls/hr Q24H IV 12/11/19 21:45 03/10/20 21:44 12/14/19 03:55 Insulin Aspart (NovoLOG) Q4HR SUBQ 12/13/19 05:00 03/12/20 04:59 12/14/19 12:03 Insulin Detemir (Levemir) 14 units BID SUBQ 12/14/19 09:00 03/12/20 08:59 12/14/19 08:59 Metoclopramide HCl (Reglan) 5 mg EVERY 8 HOURS IVP 12/12/19 14:00 01/11/20 13:59 12/14/19 13:00 Miscellaneous Medication (Insulin Rate Change) 1 ea PRN PRN MISC Hyperglycemia 12/11/19 16:45 03/10/20 16:44 12/12/19 23:30 Norepinephrine Bitartrate 16 mg/ Sodium Chloride 500 ml @ 0 mls/hr Q24H IV 12/11/19 23:00 01/10/20 22:59 12/13/19 09:03 Ondansetron HCl (Zofran) 4 mg Q6H PRN IVP Nausea & Vomiting 12/11/19 16:45 01/10/20 16:44 Pantoprazole (Protonix) 40 mg EVERY 12 HOURS IVP 12/12/19 09:00 01/11/20 08:59 12/14/19 08:56 Phenylephrine HCl 100 mg/Dextrose 510 ml @ 0 mls/hr Q24H IV 12/11/19 23:00 01/10/20 22:59 12/12/19 21:49 Piperacillin Sod/ Tazobactam Sod 3.375 gm/Sodium Chloride 110 ml @ 27.5 mls/hr EVERY 8 HOURS IVPB 12/12/19 14:00 12/17/19 13:59 12/14/19 13:00 Potassium Phosphate 20 mm/ Sodium Chloride 281.6667 ml @ 46.944 m... ONCE ONCE IV 12/14/19 11:00 12/14/19 16:59 12/14/19 11:56 Vasopressin 100 units/Sodium Chloride 100 ml @ 0 mls/hr Q24H IV 12/11/19 18:00 01/10/20 17:59 12/12/19 13:14 Assessment/Plan Assessment/Plan IMPRESSION: 1. DKA. 2. Upper GI bleed. 3. Respiratory failure. Now extubated 4. Lactic acidosis. DISCUSSION: Continue broad-spectrum antibiotics. GI following for upper gastrointestinal bleeding, Pressors as needed. I will continue oxygen, sedation, Protonix, DVT prophylaxis. I will follow carefully. Robin Schaffer M.D. Robin Schaffer MD December 14, 2019 15:28
[2019-12-14] MEDS: Vasopressin 100 UNITS in NS 95 ML IV SCH (17:14)
[2019-12-14] MEDS: Dyna-Hex 2% Top Sol 2oz TOPIC SCH (20:44)
[2019-12-14] MEDS: D5W IV SCH (21:20)
[2019-12-14] MEDS: PHENYLEPHRINE IV SCH (21:20)
[2019-12-14] MEDS: Norepinephrine Bitartrate 16 MG in Sodium Chloride 484 ML IV SCH (21:20)
[2019-12-15] VITALS (26 sets, daily range): BP systolic 83–136; BP diastolic 48–94
--- NOTE | 2019-12-15 | Progress Note ---
DATE: 12/14/2019 SUBJECTIVE: A 58-year-old female came to the emergency room for acute respiratory failure, cardiopulmonary arrest, as well as uncontrolled diabetes. The patient was currently extubated this morning, doing better, more awake, alert. NG tube in the place. Swallow evaluation is done. PHYSICAL EXAMINATION: VITAL SIGNS: Blood pressure is 130/70, pulse 84, respirations 18 to 24, and temperature is no fever. SKIN: Skin is good with skin turgor. HEENT: Eyes are open. NECK: Supple. CHEST: Bilateral few crackles. CARDIOVASCULAR: Regular rhythm. No gallop. No murmur. ABDOMEN: Soft. Positive bowel sounds. EXTREMITIES: No edema. ASSESSMENT: 1. Hyperglycemia. 2. Acute respiratory failure. 3. Diabetes. 4. Renal insufficiency, improving. PLAN: 1. The patient is off ventilator oxygen. 2. NG tube feeding. 3. Waiting swallow evaluation. 4. Continue antibiotic. 5. Continue sliding scale and Accu-Chek. 6. Endocrine is on consult. Frank Pinzon M.D. DR: TRACE JOB#: [id number] CC:
[2019-12-15] MEDS: NovoLOG Insulin Flexpen SUBQ SCH ×6 (00:03→20:49)
[2019-12-15] MEDS: Zoysn 3.37gm in NS 100ML IVPB SCH ×2 (04:57→13:19)
[2019-12-15] MEDS: Metoclopramide 10mg/2ml Inj IVP SCH ×3 (04:57→21:32)
[2019-12-15 05:29] LABS: BASOPHILS % (AUTO) 0.9 % (0.0-2.0); EOSINOPHILS % (AUTO) 2.5 % (0.0-3.0); HEMATOCRIT 27.6 % (37.0-47.0); HEMOGLOBIN 9.9 G/DL (12.0-16.0); LYMPHOCYTES % (AUTO) 14.4 % (20.0-45.0); MEAN CORPUSCULAR VOLUME 85 FL (80-99); MONOCYTES % (AUTO) 4.6 % (1.0-10.0); NEUTROPHILS % (AUTO) 77.6 % (45.0-75.0); PLATELET COUNT 116 K/UL (150-450); RED BLOOD COUNT 3.23 M/UL (4.20-5.40); RED CELL DISTRIBUTION WIDTH 12.8 % (11.6-14.8); WHITE BLOOD COUNT 11.7 K/UL (4.8-10.8)
[2019-12-15 06:01] LABS: ALANINE AMINOTRANSFERASE 193 U/L (12-78); ALBUMIN 1.4 G/DL (3.4-5.0); ALBUMIN/GLOBULIN RATIO 0.5 (1.0-2.7); ALKALINE PHOSPHATASE 123 U/L (46-116); ANION GAP 11 mmol/L (5-15); ASPARTATE AMINO TRANSFERASE 143 U/L (15-37); BILIRUBIN,TOTAL 0.5 MG/DL (0.2-1.0); BLOOD UREA NITROGEN 16 mg/dL (7-18); CALCIUM 8.2 MG/DL (8.5-10.1); CARBON DIOXIDE 24 MMOL/L (21-32); CHLORIDE 122 MMOL/L (98-107); CREATININE 0.7 MG/DL (0.55-1.30); POTASSIUM 3.3 MMOL/L (3.5-5.1); SODIUM 157 MMOL/L (136-145)
[2019-12-15 06:25] LABS: PHOSPHORUS 2.2 MG/DL (2.5-4.9)
--- NOTE | 2019-12-15 08:17 | General Progress Note ---
Assessment/Plan Problem List: (1) DKA (diabetic ketoacidoses) ICD Codes: E11.10 - Type 2 diabetes mellitus with ketoacidosis without coma SNOMED: 634731633, 47160903 Qualifiers: Qualified Codes: E13.11 - Other specified diabetes mellitus with ketoacidosis with coma (2) Cardiac arrest ICD Codes: I46.9 - Cardiac arrest, cause unspecified SNOMED: 176655180 (3) Coffee ground emesis ICD Codes: K92.0 - Hematemesis SNOMED: 07822225 (4) Abnormal TSH ICD Codes: R79.89 - Other specified abnormal findings of blood chemistry SNOMED: 589122868 Assessment/Plan: continue Levemir 14 units bid continue Novolog sliding scale every 4 hours thyroid function studies suggestive of "sick euthyroid" no need for thyroid medications repeat thyroid function in 2 weeks Subjective ROS Limited/Unobtainable: Yes Allergies: Coded Allergies: No Known Allergies (Unverified , 12/11/19) Subjective still in ICU glucose values are stable NPO on soft restraints Item Value Date Time Bedside Blood Glucose 100 mg/dl 12/15/19 0424 Bedside Blood Glucose 135 mg/dl H 12/15/19 0004 Bedside Blood Glucose 126 mg/dl H 12/14/19 2100 Bedside Blood Glucose 123 mg/dl H 12/14/19 1716 Bedside Blood Glucose 170 mg/dl H 12/14/19 1203 Bedside Blood Glucose 162 mg/dl H 12/14/19 0900 Bedside Blood Glucose 190 mg/dl H 12/14/19 0400 Objective Last 24 Hour Vital Signs Date Time Temp Pulse Resp B/P (MAP) Pulse Ox O2 Delivery O2 Flow Rate FiO2 12/15/19 07:07 107 24 92/65 (74) 98 12/15/19 07:00 103 19 83/53 (63) 98 12/15/19 06:00 101 29 87/57 (67) 98 12/15/19 05:30 102 26 96/72 (80) 96 12/15/19 05:00 106 22 111/94 (100) 95 12/15/19 04:30 105 25 109/76 (87) 96 12/15/19 04:00 Nasal Cannula 4.0 Nasal Cannula 4.0 12/15/19 04:00 4.0 12/15/19 04:00 99.3 110 20 92/74 (80) 100 12/15/19 04:00 101 12/15/19 03:30 106 24 136/92 (107) 98 12/15/19 03:00 99 28 107/89 (95) 94 12/15/19 02:00 98 25 83/58 (66) 100 12/15/19 01:00 107 21 111/69 (83) 97 12/15/19 00:00 4.0 12/15/19 00:00 98.6 106 29 101/54 (70) 100 12/15/19 00:00 Venturi Mask Venturi Mask 12/14/19 23:00 108 29 90/64 (73) 99 12/14/19 22:00 108 30 90/59 (69) 97 12/14/19 21:21 55 12/14/19 21:20 109 92/53 12/14/19 21:20 92/53 12/14/19 21:00 116 32 108/72 (84) 12/14/19 20:00 Nasal Cannula 4.0 Nasal Cannula 4.0 12/14/19 20:00 106 12/14/19 20:00 4.0 12/14/19 20:00 101.0 108 32 97/58 (71) 94 12/14/19 19:00 109 31 92/53 (66) 96 12/14/19 18:00 113 28 117/54 (75) 97 12/14/19 17:00 110 27 92/55 (67) 97 12/14/19 16:00 Nasal Cannula 4.0 Nasal Cannula 4.0 12/14/19 16:00 101 12/14/19 16:00 4.0 12/14/19 16:00 98.7 104 26 169/98 (121) 96 12/14/19 15:30 107 27 162/129 (140) 97 12/14/19 15:00 107 29 140/90 (107) 97 12/14/19 14:45 108 27 101/78 (86) 100 12/14/19 14:30 112 29 125/74 (91) 100 20 14:00 105 27 136/119 (125) 94 12/14/19 13:30 111 24 101/62 (75) 95 12/14/19 13:15 108 27 134/103 (113) 94 12/14/19 13:00 112 30 151/121 (131) 96 12/14/19 12:48 Nasal Cannula 4.0 36 12/14/19 12:45 114 32 120/102 (108) 98 12/14/19 12:30 4.0 12/14/19 12:30 102 27 118/93 (101) 98 12/14/19 12:15 101 28 91/69 (76) 99 12/14/19 12:00 105 12/14/19 12:00 Mechanical Ventilator 12/14/19 12:00 30 12/14/19 12:00 100.0 102 29 105/87 (93) 12/14/19 11:45 103 28 100/62 (75) 12/14/19 11:30 105 28 106/62 (77) 99 12/14/19 11:23 105 30 30 30 12/14/19 11:15 106 32 109/72 (84) 98 12/14/19 11:00 101 27 99/64 (76) 97 12/14/19 10:45 108 26 103/65 (78) 96 12/14/19 10:30 103 26 104/65 (78) 97 12/14/19 10:15 105 26 105/68 (80) 98 12/14/19 10:00 104 26 97/65 (76) 99 12/14/19 09:45 106 25 109/64 (79) 99 12/14/19 09:30 108 27 30 30 12/14/19 09:30 30 12/14/19 09:30 107 26 111/72 (85) 99 12/14/19 09:29 95 12/14/19 09:15 108 27 104/73 (83) 97 12/14/19 09:00 107 25 106/69 (81) 99 12/14/19 09:00 25 106/69 Mechanical Ventilator 30 12/14/19 08:45 103 24 106/85 (92) 99 12/14/19 08:30 99 24 93/61 (72) 98 Intake and Output 12/14/19 12/15/19 19:00 07:00 Intake Total 1106.6667 ml 768.80 ml Output Total 1200 ml 710 ml Balance -93.3333 ml 58.80 ml Intake IV Total 1106.6667 ml 768.80 ml Output Urine Total 1200 ml 710 ml # Bowel Movements 1 1 Laboratory Tests 12/14/19 10:46: Arterial Blood pH 7.444, Arterial Blood Partial Pressure CO2 30.5L, Arterial Blood Partial Pressure O2 77.3, Arterial Blood HCO3 20.4L, Arterial Blood Oxygen Saturation 95.4, Arterial Blood Base Excess -3.0L, Scotty Test Positive 12/14/19 21:04: Arterial Blood pH 7.495H, Arterial Blood Partial Pressure CO2 26.7L, Arterial Blood Partial Pressure O2 56.9L, Arterial Blood HCO3 20.1L, Arterial Blood Oxygen Saturation 91.0L, Arterial Blood Base Excess -2.3L, Scotty Test Positive 12/15/19 04:00: White Blood Count 11.7H, Red Blood Count 3.23L, Hemoglobin 9.9L, Hematocrit 27.6L, Mean Corpuscular Volume 85, Mean Corpuscular Hemoglobin 30.7, Mean Corpuscular Hemoglobin Concent 36.0, Red Cell Distribution Width 12.8, Platelet Count 116L, Mean Platelet Volume 8.2, Neutrophils (%) (Auto) 77.6H, Lymphocytes (%) (Auto) 14.4L, Monocytes (%) (Auto) 4.6, Eosinophils (%) (Auto) 2.5, Basophils (%) (Auto) 0.9, Stool Occult Blood [Pending], Sodium Level 157H, Potassium Level 3.3L, Chloride Level 122H, Carbon Dioxide Level 24, Anion Gap 11 , Blood Urea Nitrogen 16, Creatinine 0.7, Estimat Glomerular Filtration Rate > 60, Glucose Level 115#H, Calcium Level 8.2L, Phosphorus Level 2.2L, Magnesium Level 2.2, Total Bilirubin 0.5, Aspartate Amino Transf (AST/SGOT) 143H, Alanine Aminotransferase (ALT/SGPT) 193H, Alkaline Phosphatase 123H, Ammonia 24, C- Reactive Protein, Quantitative 37.7H, Pro-B-Type Natriuretic Peptide 2091H, Total Protein 4.4L, Albumin 1.4L, Globulin 3.0, Albumin/Globulin Ratio 0.5L Height (Feet): 5 Height (Inches): 5.00 Weight (Pounds): 145 General Appearance: no apparent distress Neck: normal alignment Cardiovascular: normal rate Respiratory/Chest: decreased breath sounds Abdomen: normal bowel sounds Objective Current Medications Medications (Trade) Dose Ordered Sig/Esequiel Route PRN Reason Start Time Stop Time Status Last Admin Dose Admin Acetaminophen (Tylenol) 650 mg Q4H PRN GT Mild Pain (Pain Scale 1-3) 12/11/19 16:45 01/10/20 16:44 12/13/19 20:41 Acetaminophen (Tylenol) 650 mg Q4H PRN RECTAL Mild Pain (Pain Scale 1-3) 12/11/19 16:45 01/10/20 16:44 12/12/19 13:14 Chlorhexidine Gluconate (Bijal-Hex 2%) 1 applic DAILY@2000 TOPIC 12/12/19 20:00 03/11/20 19:59 12/14/19 20:44 Dextrose 1,000 ml @ 50 mls/hr Q20H IV 12/14/19 09:00 01/13/20 08:59 12/15/19 04:57 Dextrose (Dextrose 50%) 25 ml Q30M PRN IV Hypoglycemia 12/13/19 02:00 03/12/20 01:59 Dextrose (Dextrose 50%) 50 ml Q30M PRN IV Hypoglycemia 12/13/19 02:00 03/12/20 01:59 Fentanyl Citrate 250 ml @ 0 mls/hr Q24H IV 12/11/19 21:45 03/10/20 21:44 12/14/19 03:55 Insulin Aspart (NovoLOG) Q4HR SUBQ 12/13/19 05:00 03/12/20 04:59 12/14/19 12:03 Insulin Detemir (Levemir) 14 units BID SUBQ 12/14/19 09:00 03/12/20 08:59 12/14/19 17:16 Metoclopramide HCl (Reglan) 5 mg EVERY 8 HOURS IVP 12/12/19 14:00 01/11/20 13:59 12/15/19 04:57 Miscellaneous Medication (Insulin Rate Change) 1 ea PRN PRN MISC Hyperglycemia 12/11/19 16:45 03/10/20 16:44 12/12/19 23:30 Norepinephrine Bitartrate 16 mg/ Sodium Chloride 500 ml @ 0 mls/hr Q24H IV 12/11/19 23:00 01/10/20 22:59 12/13/19 09:03 Ondansetron HCl (Zofran) 4 mg Q6H PRN IVP Nausea & Vomiting 12/11/19 16:45 01/10/20 16:44 Pantoprazole (Protonix) 40 mg EVERY 12 HOURS IVP 12/12/19 09:00 01/11/20 08:59 12/14/19 20:44 Phenylephrine HCl 100 mg/Dextrose 510 ml @ 0 mls/hr Q24H IV 12/11/19 23:00 01/10/20 22:59 12/12/19 21:49 Piperacillin Sod/ Tazobactam Sod 3.375 gm/Sodium Chloride 110 ml @ 27.5 mls/hr EVERY 8 HOURS IVPB 12/12/19 14:00 12/17/19 13:59 12/15/19 04:57 Potassium Phosphate 250 ml @ 62.5 mls/hr Q4H IVPB 12/15/19 09:00 12/15/19 16:59 Vasopressin 100 units/Sodium Chloride 100 ml @ 0 mls/hr Q24H IV 12/11/19 18:00 01/10/20 17:59 12/12/19 13:14 Stef Ortega MD December 15, 2019 08:17
[2019-12-15] MEDS: Pantoprazole Inj IVP SCH ×2 (09:12→20:45)
[2019-12-15] MEDS: Potassium Phosphate 15mm/250ml 250 ML IVPB SCH ×2 (09:13→13:19)
[2019-12-15] MEDS: Levemir Flexpen SUBQ SCH ×2 (09:38→17:56)
--- NOTE | 2019-12-15 10:13 | Cardiac Electrophysiology PN ---
Assessment/Plan Assessment/Plan 1. S/P Septic shock. Off pressors. Echo EF 60%. EKG shows sinus tachycardia with no acute ST-T wave abnormalities. Already on broad-spectrum IV antibiotic 2. Respiratory failure, Extubated 3. History of hypertension 4. Coffee-ground emesis.S/P 2 units of PRBC 5. Diabetic ketoacidosis off insulin drip. MICAELA RN Subjective Subjective In ICU off the Vent and off pressors S/P 2 units of PRBC in sinus tach. Covid test from 12/13 results pending Objective Last 24 Hour Vital Signs Date Time Temp Pulse Resp B/P (MAP) Pulse Ox O2 Delivery O2 Flow Rate FiO2 12/15/19 10:00 117 24 90/56 (67) 97 12/15/19 09:30 115 22 108/71 (83) 96 12/15/19 09:00 107 34 86/48 (61) 98 12/15/19 08:00 98.8 111 30 92/59 (70) 96 12/15/19 07:07 107 24 92/65 (74) 98 12/15/19 07:00 103 19 83/53 (63) 98 12/15/19 06:00 101 29 87/57 (67) 98 12/15/19 05:30 102 26 96/72 (80) 96 12/15/19 05:00 106 22 111/94 (100) 95 12/15/19 04:30 105 25 109/76 (87) 96 12/15/19 04:00 Nasal Cannula 4.0 Nasal Cannula 4.0 12/15/19 04:00 4.0 12/15/19 04:00 99.3 110 20 92/74 (80) 100 12/15/19 04:00 101 12/15/19 03:30 106 24 136/92 (107) 98 12/15/19 03:00 99 28 107/89 (95) 94 12/15/19 02:00 98 25 83/58 (66) 100 12/15/19 01:00 107 21 111/69 (83) 97 12/15/19 00:00 4.0 12/15/19 00:00 98.6 106 29 101/54 (70) 100 12/15/19 00:00 Venturi Mask Venturi Mask 12/14/19 23:00 108 29 90/64 (73) 99 12/14/19 22:00 108 30 90/59 (69) 97 20 21:21 55 12/14/19 21:20 109 92/53 12/14/19 21:20 92/53 12/14/19 21:00 116 32 108/72 (84) 12/14/19 20:00 Nasal Cannula 4.0 Nasal Cannula 4.0 12/14/19 20:00 106 12/14/19 20:00 4.0 12/14/19 20:00 101.0 108 32 97/58 (71) 94 12/14/19 19:00 109 31 92/53 (66) 96 12/14/19 18:00 113 28 117/54 (75) 97 12/14/19 17:00 110 27 92/55 (67) 97 12/14/19 16:00 Nasal Cannula 4.0 Nasal Cannula 4.0 12/14/19 16:00 101 12/14/19 16:00 4.0 12/14/19 16:00 98.7 104 26 169/98 (121) 96 12/14/19 15:30 107 27 162/129 (140) 97 12/14/19 15:00 107 29 140/90 (107) 97 12/14/19 14:45 108 27 101/78 (86) 100 12/14/19 14:30 112 29 125/74 (91) 100 12/14/19 14:00 105 27 136/119 (125) 94 12/14/19 13:30 111 24 101/62 (75) 95 12/14/19 13:15 108 27 134/103 (113) 94 12/14/19 13:00 112 30 151/121 (131) 96 12/14/19 12:48 Nasal Cannula 4.0 36 12/14/19 12:45 114 32 120/102 (108) 98 12/14/19 12:30 4.0 12/14/19 12:30 102 27 118/93 (101) 98 12/14/19 12:15 101 28 91/69 (76) 99 12/14/19 12:00 105 12/14/19 12:00 Mechanical Ventilator 12/14/19 12:00 30 12/14/19 12:00 100.0 102 29 105/87 (93) 12/14/19 11:45 103 28 100/62 (75) 12/14/19 11:30 105 28 106/62 (77) 99 12/14/19 11:23 105 30 30 30 12/14/19 11:15 106 32 109/72 (84) 98 12/14/19 11:00 101 27 99/64 (76) 97 12/14/19 10:45 108 26 103/65 (78) 96 12/14/19 10:30 103 26 104/65 (78) 97 12/14/19 10:15 105 26 105/68 (80) 98 Intake and Output 12/14/19 12/15/19 19:00 07:00 Intake Total 1106.6667 ml 768.80 ml Output Total 1200 ml 710 ml Balance -93.3333 ml 58.80 ml Intake IV Total 1106.6667 ml 768.80 ml Output Urine Total 1200 ml 710 ml # Bowel Movements 1 1 Laboratory Tests Test 12/14/19 10:46 12/14/19 21:04 12/15/19 04:00 Arterial Blood pH 7.444 (7.350-7.450) 7.495 (7.350-7.450) Arterial Blood Partial Pressure CO2 30.5 mmHg (35.0-45.0) L 26.7 mmHg (35.0-45.0) L Arterial Blood Partial Pressure O2 77.3 mmHg (75.0-100.0) 56.9 mmHg (75.0-100.0) L Arterial Blood HCO3 20.4 mmol/L (22.0-26.0) L 20.1 mmol/L (22.0-26.0) L Arterial Blood Oxygen Saturation 95.4 % (95-100) 91.0 % (95-100) L Arterial Blood Base Excess -3.0 (-2-2) L -2.3 (-2-2) L Scotty Test Positive Positive White Blood Count 11.7 K/UL (4.8-10.8) H Red Blood Count 3.23 M/UL (4.20-5.40) L Hemoglobin 9.9 G/DL (12.0-16.0) L Hematocrit 27.6 % (37.0-47.0) L Mean Corpuscular Volume 85 FL (80-99) Mean Corpuscular Hemoglobin 30.7 PG (27.0-31.0) Mean Corpuscular Hemoglobin Concent 36.0 G/DL (32.0-36.0) Red Cell Distribution Width 12.8 % (11.6-14.8) Platelet Count 116 K/UL (150-450) L Mean Platelet Volume 8.2 FL (6.5-10.1) Neutrophils (%) (Auto) 77.6 % (45.0-75.0) H Lymphocytes (%) (Auto) 14.4 % (20.0-45.0) L Monocytes (%) (Auto) 4.6 % (1.0-10.0) Eosinophils (%) (Auto) 2.5 % (0.0-3.0) Basophils (%) (Auto) 0.9 % (0.0-2.0) Stool Occult Blood Pending Sodium Level 157 MMOL/L (136-145) H Potassium Level 3.3 MMOL/L (3.5-5.1) L Chloride Level 122 MMOL/L (98-107) H Carbon Dioxide Level 24 MMOL/L (21-32) Anion Gap 11 mmol/L (5-15) Blood Urea Nitrogen 16 mg/dL (7-18) Creatinine 0.7 MG/DL (0.55-1.30) Estimat Glomerular Filtration Rate > 60 mL/min (>60) Glucose Level 115 MG/DL (74-106) #H Calcium Level 8.2 MG/DL (8.5-10.1) L Phosphorus Level 2.2 MG/DL (2.5-4.9) L Magnesium Level 2.2 MG/DL (1.8-2.4) Total Bilirubin 0.5 MG/DL (0.2-1.0) Aspartate Amino Transf (AST/SGOT) 143 U/L (15-37) H Alanine Aminotransferase (ALT/SGPT) 193 U/L (12-78) H Alkaline Phosphatase 123 U/L (46-116) H Ammonia 24 umol/L (11-32) C-Reactive Protein, Quantitative 37.7 mg/dL (0.00-0.90) H Pro-B-Type Natriuretic Peptide 2091 pg/mL (0-125) H Total Protein 4.4 G/DL (6.4-8.2) L Albumin 1.4 G/DL (3.4-5.0) L Globulin 3.0 g/dL Albumin/Globulin Ratio 0.5 (1.0-2.7) L Objective HEAD AND NECK: No JVD LUNGS: Coarse rhonchi. CARDIOVASCULAR: Irregular S1-S2 and tachycardic. ABDOMEN: Soft. EXTREMITIES: No pitting edema. Gerardo Dyer MD December 15, 2019 10:13
--- NOTE | 2019-12-15 11:30 | Nephrology Progress Note ---
Assessment/Plan Problem List: (1) DEANDRA (acute kidney injury) Assessment: Resolved (2) Hypotension (3) Cardiac arrest (4) DKA (diabetic ketoacidoses) (5) Respiratory distress (6) Coffee ground emesis (7) Electrolyte imbalance Assessment Acute renal failure which probably is superimposed on chronic kidney disease History of diabetes mellitus, most likely diabetic nephropathy. Presents with diabetic ketoacidosis Acute respiratory failure requiring intubation and mechanical ventilation Aspiration pneumonia, upper GI bleed Proteinuria and severe hypoalbuminemia should rule out nephrotic range proteinuria Anemia Electrolyte imbalances Plan Patient is now extubated Will replace potassium, magnesium, and phosphorus as needed 2 units of packed RBCs was transfused Hydrate as needed Monitor renal parameters Avoid nephrotoxic's Anemia work-up Urine studies Keep blood sugar and blood pressure in check Per consultants Discussed with RN Subjective ROS Limited/Unobtainable: No Constitutional: Reports: malaise, weakness Objective Objective Last 24 Hour Vital Signs Date Time Temp Pulse Resp B/P (MAP) Pulse Ox O2 Delivery O2 Flow Rate FiO2 12/15/19 10:17 97 Nasal Cannula 3.0 32 12/15/19 10:00 117 24 90/56 (67) 97 12/15/19 09:30 115 22 108/71 (83) 96 12/15/19 09:00 107 34 86/48 (61) 98 12/15/19 08:00 98.8 111 30 92/59 (70) 96 12/15/19 08:00 4.0 12/15/19 08:00 Nasal Cannula 4.0 Nasal Cannula 4.0 12/15/19 07:07 107 24 92/65 (74) 98 12/15/19 07:00 103 19 83/53 (63) 98 12/15/19 06:00 101 29 87/57 (67) 98 12/15/19 05:30 102 26 96/72 (80) 96 12/15/19 05:00 106 22 111/94 (100) 95 12/15/19 04:30 105 25 109/76 (87) 96 12/15/19 04:00 Nasal Cannula 4.0 Nasal Cannula 4.0 12/15/19 04:00 4.0 12/15/19 04:00 99.3 110 20 92/74 (80) 100 12/15/19 04:00 101 12/15/19 03:30 106 24 136/92 (107) 98 12/15/19 03:00 99 28 107/89 (95) 94 12/15/19 02:00 98 25 83/58 (66) 100 12/15/19 01:00 107 21 111/69 (83) 97 12/15/19 00:00 4.0 12/15/19 00:00 98.6 106 29 101/54 (70) 100 12/15/19 00:00 Venturi Mask Venturi Mask 12/14/19 23:00 108 29 90/64 (73) 99 12/14/19 22:00 108 30 90/59 (69) 97 12/14/19 21:21 55 12/14/19 21:20 109 92/53 12/14/19 21:20 92/53 12/14/19 21:00 116 32 108/72 (84) 12/14/19 20:00 Nasal Cannula 4.0 Nasal Cannula 4.0 12/14/19 20:00 106 12/14/19 20:00 4.0 12/14/19 20:00 101.0 108 32 97/58 (71) 94 12/14/19 19:00 109 31 92/53 (66) 96 12/14/19 18:00 113 28 117/54 (75) 97 12/14/19 17:00 110 27 92/55 (67) 97 12/14/19 16:00 Nasal Cannula 4.0 Nasal Cannula 4.0 12/14/19 16:00 101 12/14/19 16:00 4.0 12/14/19 16:00 98.7 104 26 169/98 (121) 96 12/14/19 15:30 107 27 162/129 (140) 97 12/14/19 15:00 107 29 140/90 (107) 97 12/14/19 14:45 108 27 101/78 (86) 100 12/14/19 14:30 112 29 125/74 (91) 100 12/14/19 14:00 105 27 136/119 (125) 94 12/14/19 13:30 111 24 101/62 (75) 95 12/14/19 13:15 108 27 134/103 (113) 94 12/14/19 13:00 112 30 151/121 (131) 96 12/14/19 12:48 Nasal Cannula 4.0 36 12/14/19 12:45 114 32 120/102 (108) 98 12/14/19 12:30 4.0 12/14/19 12:30 102 27 118/93 (101) 98 12/14/19 12:15 101 28 91/69 (76) 99 12/14/19 12:00 105 12/14/19 12:00 Mechanical Ventilator 12/14/19 12:00 30 12/14/19 12:00 100.0 102 29 105/87 (93) 12/14/19 11:45 103 28 100/62 (75) 12/14/19 11:30 105 28 106/62 (77) 99 Intake and Output 12/14/19 12/15/19 19:00 07:00 Intake Total 1106.6667 ml 768.80 ml Output Total 1200 ml 710 ml Balance -93.3333 ml 58.80 ml Intake IV Total 1106.6667 ml 768.80 ml Output Urine Total 1200 ml 710 ml # Bowel Movements 1 1 Laboratory Tests 12/14/19 21:04: Arterial Blood pH 7.495H, Arterial Blood Partial Pressure CO2 26.7L, Arterial Blood Partial Pressure O2 56.9L, Arterial Blood HCO3 20.1L, Arterial Blood Oxygen Saturation 91.0L, Arterial Blood Base Excess -2.3L, Scotty Test Positive 12/15/19 04:00: White Blood Count 11.7H, Red Blood Count 3.23L, Hemoglobin 9.9L, Hematocrit 27.6L, Mean Corpuscular Volume 85, Mean Corpuscular Hemoglobin 30.7, Mean Corpuscular Hemoglobin Concent 36.0, Red Cell Distribution Width 12.8, Platelet Count 116L, Mean Platelet Volume 8.2, Neutrophils (%) (Auto) 77.6H, Lymphocytes (%) (Auto) 14.4L, Monocytes (%) (Auto) 4.6, Eosinophils (%) (Auto) 2.5, Basophils (%) (Auto) 0.9, Stool Occult Blood [Pending], Sodium Level 157H, Potassium Level 3.3L, Chloride Level 122H, Carbon Dioxide Level 24, Anion Gap 11 , Blood Urea Nitrogen 16, Creatinine 0.7, Estimat Glomerular Filtration Rate > 60, Glucose Level 115#H, Calcium Level 8.2L, Phosphorus Level 2.2L, Magnesium Level 2.2, Total Bilirubin 0.5, Aspartate Amino Transf (AST/SGOT) 143H, Alanine Aminotransferase (ALT/SGPT) 193H, Alkaline Phosphatase 123H, Ammonia 24, C- Reactive Protein, Quantitative 37.7H, Pro-B-Type Natriuretic Peptide 2091H, Total Protein 4.4L, Albumin 1.4L, Globulin 3.0, Albumin/Globulin Ratio 0.5L Height (Feet): 5 Height (Inches): 5.00 Weight (Pounds): 145 General Appearance: no apparent distress, lethargic EENT: other - Now extubated on nasal cannula Cardiovascular: tachycardia Respiratory/Chest: decreased breath sounds Abdomen: distended Don Ventura MD December 15, 2019 11:30
--- NOTE | 2019-12-15 11:47 | Pulmonology Progress Note ---
Subjective ROS Limited/Unobtainable: No Interval Events: Extuabted 12/13/19 Constitutional: Reports: no symptoms HEENT: Repors: no symptoms Respiratory: Reports: no symptoms Cardiovascular: Reports: no symptoms Gastrointestinal/Abdominal: Reports: no symptoms Genitourinary: Reports: no symptoms Allergies: Coded Allergies: No Known Allergies (Unverified , 12/11/19) Objective Last 24 Hour Vital Signs Date Time Temp Pulse Resp B/P (MAP) Pulse Ox O2 Delivery O2 Flow Rate FiO2 12/15/19 10:17 97 Nasal Cannula 3.0 32 12/15/19 10:00 117 24 90/56 (67) 97 12/15/19 09:30 115 22 108/71 (83) 96 12/15/19 09:00 107 34 86/48 (61) 98 12/15/19 08:00 98.8 111 30 92/59 (70) 96 12/15/19 08:00 4.0 12/15/19 08:00 Nasal Cannula 4.0 Nasal Cannula 4.0 12/15/19 07:07 107 24 92/65 (74) 98 12/15/19 07:00 103 19 83/53 (63) 98 12/15/19 06:00 101 29 87/57 (67) 98 12/15/19 05:30 102 26 96/72 (80) 96 12/15/19 05:00 106 22 111/94 (100) 95 12/15/19 04:30 105 25 109/76 (87) 96 12/15/19 04:00 Nasal Cannula 4.0 Nasal Cannula 4.0 12/15/19 04:00 4.0 12/15/19 04:00 99.3 110 20 92/74 (80) 100 12/15/19 04:00 101 12/15/19 03:30 106 24 136/92 (107) 98 12/15/19 03:00 99 28 107/89 (95) 94 12/15/19 02:00 98 25 83/58 (66) 100 12/15/19 01:00 107 21 111/69 (83) 97 12/15/19 00:00 4.0 12/15/19 00:00 98.6 106 29 101/54 (70) 100 12/15/19 00:00 Venturi Mask Venturi Mask 12/14/19 23:00 108 29 90/64 (73) 99 12/14/19 22:00 108 30 90/59 (69) 97 12/14/19 21:21 55 12/14/19 21:20 109 92/53 12/14/19 21:20 92/53 12/14/19 21:00 116 32 108/72 (84) 12/14/19 20:00 Nasal Cannula 4.0 Nasal Cannula 4.0 12/14/19 20:00 106 12/14/19 20:00 4.0 12/14/19 20:00 101.0 108 32 97/58 (71) 94 12/14/19 19:00 109 31 92/53 (66) 96 12/14/19 18:00 113 28 117/54 (75) 97 12/14/19 17:00 110 27 92/55 (67) 97 12/14/19 16:00 Nasal Cannula 4.0 Nasal Cannula 4.0 12/14/19 16:00 101 12/14/19 16:00 4.0 12/14/19 16:00 98.7 104 26 169/98 (121) 96 12/14/19 15:30 107 27 162/129 (140) 97 12/14/19 15:00 107 29 140/90 (107) 97 12/14/19 14:45 108 27 101/78 (86) 100 12/14/19 14:30 112 29 125/74 (91) 100 12/14/19 14:00 105 27 136/119 (125) 94 12/14/19 13:30 111 24 101/62 (75) 95 12/14/19 13:15 108 27 134/103 (113) 94 12/14/19 13:00 112 30 151/121 (131) 96 12/14/19 12:48 Nasal Cannula 4.0 36 12/14/19 12:45 114 32 120/102 (108) 98 12/14/19 12:30 4.0 12/14/19 12:30 102 27 118/93 (101) 98 12/14/19 12:15 101 28 91/69 (76) 99 12/14/19 12:00 105 12/14/19 12:00 Mechanical Ventilator 12/14/19 12:00 30 12/14/19 12:00 100.0 102 29 105/87 (93) Intake and Output 12/14/19 12/15/19 19:00 07:00 Intake Total 1106.6667 ml 768.80 ml Output Total 1200 ml 710 ml Balance -93.3333 ml 58.80 ml Intake IV Total 1106.6667 ml 768.80 ml Output Urine Total 1200 ml 710 ml # Bowel Movements 1 1 General Appearance: no acute distress HEENT: normocephalic Respiratory: chest wall non-tender, lungs clear Cardiovascular: normal peripheral pulses, normal rate Abdomen: normal bowel sounds Laboratory Tests 12/14/19 21:04: Arterial Blood pH 7.495H, Arterial Blood Partial Pressure CO2 26.7L, Arterial Blood Partial Pressure O2 56.9L, Arterial Blood HCO3 20.1L, Arterial Blood Oxygen Saturation 91.0L, Arterial Blood Base Excess -2.3L, Scotty Test Positive 12/15/19 04:00: White Blood Count 11.7H, Red Blood Count 3.23L, Hemoglobin 9.9L, Hematocrit 27.6L, Mean Corpuscular Volume 85, Mean Corpuscular Hemoglobin 30.7, Mean Corpuscular Hemoglobin Concent 36.0, Red Cell Distribution Width 12.8, Platelet Count 116L, Mean Platelet Volume 8.2, Neutrophils (%) (Auto) 77.6H, Lymphocytes (%) (Auto) 14.4L, Monocytes (%) (Auto) 4.6, Eosinophils (%) (Auto) 2.5, Basophils (%) (Auto) 0.9, Stool Occult Blood [Pending], Sodium Level 157H, Potassium Level 3.3L, Chloride Level 122H, Carbon Dioxide Level 24, Anion Gap 11 , Blood Urea Nitrogen 16, Creatinine 0.7, Estimat Glomerular Filtration Rate > 60, Glucose Level 115#H, Calcium Level 8.2L, Phosphorus Level 2.2L, Magnesium Level 2.2, Total Bilirubin 0.5, Aspartate Amino Transf (AST/SGOT) 143H, Alanine Aminotransferase (ALT/SGPT) 193H, Alkaline Phosphatase 123H, Ammonia 24, C- Reactive Protein, Quantitative 37.7H, Pro-B-Type Natriuretic Peptide 2091H, Total Protein 4.4L, Albumin 1.4L, Globulin 3.0, Albumin/Globulin Ratio 0.5L Current Medications Medications (Trade) Dose Ordered Sig/Esequiel Route PRN Reason Start Time Stop Time Status Last Admin Dose Admin Acetaminophen (Tylenol) 650 mg Q4H PRN GT Mild Pain (Pain Scale 1-3) 12/11/19 16:45 01/10/20 16:44 12/13/19 20:41 Acetaminophen (Tylenol) 650 mg Q4H PRN RECTAL Mild Pain (Pain Scale 1-3) 12/11/19 16:45 01/10/20 16:44 12/12/19 13:14 Chlorhexidine Gluconate (Bijal-Hex 2%) 1 applic DAILY@2000 TOPIC 12/12/19 20:00 03/11/20 19:59 12/14/19 20:44 Dextrose 1,000 ml @ 50 mls/hr Q20H IV 12/14/19 09:00 01/13/20 08:59 12/15/19 04:57 Dextrose (Dextrose 50%) 25 ml Q30M PRN IV Hypoglycemia 12/13/19 02:00 03/12/20 01:59 Dextrose (Dextrose 50%) 50 ml Q30M PRN IV Hypoglycemia 12/13/19 02:00 03/12/20 01:59 Fentanyl Citrate 250 ml @ 0 mls/hr Q24H IV 12/11/19 21:45 03/10/20 21:44 12/14/19 03:55 Insulin Aspart (NovoLOG) Q4HR SUBQ 12/13/19 05:00 03/12/20 04:59 12/15/19 09:39 Insulin Detemir (Levemir) 14 units BID SUBQ 12/14/19 09:00 03/12/20 08:59 12/15/19 09:38 Metoclopramide HCl (Reglan) 5 mg EVERY 8 HOURS IVP 12/12/19 14:00 01/11/20 13:59 12/15/19 04:57 Midodrine (Pro-Amatine) 2.5 mg THREE TIMES A DAY GT 12/15/19 13:00 03/14/20 12:59 Norepinephrine Bitartrate 16 mg/ Sodium Chloride 500 ml @ 0 mls/hr Q24H IV 12/11/19 23:00 01/10/20 22:59 12/13/19 09:03 Ondansetron HCl (Zofran) 4 mg Q6H PRN IVP Nausea & Vomiting 12/11/19 16:45 01/10/20 16:44 Pantoprazole (Protonix) 40 mg EVERY 12 HOURS IVP 12/12/19 09:00 01/11/20 08:59 12/15/19 09:12 Phenylephrine HCl 100 mg/Dextrose 510 ml @ 0 mls/hr Q24H IV 12/11/19 23:00 01/10/20 22:59 12/12/19 21:49 Piperacillin Sod/ Tazobactam Sod 3.375 gm/Sodium Chloride 110 ml @ 27.5 mls/hr EVERY 8 HOURS IVPB 12/12/19 14:00 12/17/19 13:59 12/15/19 04:57 Potassium Phosphate 250 ml @ 62.5 mls/hr Q4H IVPB 12/15/19 09:00 12/15/19 16:59 12/15/19 09:13 Vasopressin 100 units/Sodium Chloride 100 ml @ 0 mls/hr Q24H IV 12/11/19 18:00 01/10/20 17:59 12/12/19 13:14 Assessment/Plan Assessment/Plan IMPRESSION: 1. DKA. Resolved 2. Upper GI bleed. 3. Respiratory failure. Now extubated 4. Lactic acidosis. DISCUSSION: Continue antibiotics. GI following for upper gastrointestinal bleeding, Not on pressors. I will continue oxygen, sedation, Protonix, DVT prophylaxis. I will follow carefully. Transfer to [facility] Osorio Harris Omar Syed MD December 15, 2019 11:47
--- NOTE | 2019-12-15 11:52 | General Progress Note ---
Assessment/Plan Problem List: (1) Coffee ground emesis ICD Codes: K92.0 - Hematemesis SNOMED: 25046018 (2) High blood urea nitrogen (BUN) ICD Codes: R79.9 - Abnormal finding of blood chemistry, unspecified SNOMED: 167934852, 140562443 (3) High serum creatine ICD Codes: R79.89 - Other specified abnormal findings of blood chemistry SNOMED: 780999705, 297415178 (4) DKA (diabetic ketoacidoses) ICD Codes: E11.10 - Type 2 diabetes mellitus with ketoacidosis without coma SNOMED: 409754012, 32872604 Qualifiers: Qualified Codes: E13.11 - Other specified diabetes mellitus with ketoacidosis with coma (5) Altered mental status ICD Codes: R41.82 - Altered mental status, unspecified SNOMED: 231914989, 41931739 Qualifiers: Qualified Codes: R41.82 - Altered mental status, unspecified (6) Cardiac arrest ICD Codes: I46.9 - Cardiac arrest, cause unspecified SNOMED: 358529641 (7) Respiratory distress ICD Codes: R06.03 - Acute respiratory distress SNOMED: 280997495 Assessment/Plan: s/p 2 units prbc in this admission no obvious GIB per nurses neg stool ob x1 ppi iv BID reglan monitor H&H transfuse to keep HGB above 7.5 extubated now pending swallow eval Subjective ROS Limited/Unobtainable: No Allergies: Coded Allergies: No Known Allergies (Unverified , 12/11/19) Objective Last 24 Hour Vital Signs Date Time Temp Pulse Resp B/P (MAP) Pulse Ox O2 Delivery O2 Flow Rate FiO2 12/15/19 10:17 97 Nasal Cannula 3.0 32 12/15/19 10:00 117 24 90/56 (67) 97 12/15/19 09:30 115 22 108/71 (83) 96 12/15/19 09:00 107 34 86/48 (61) 98 12/15/19 08:00 98.8 111 30 92/59 (70) 96 12/15/19 08:00 4.0 12/15/19 08:00 Nasal Cannula 4.0 Nasal Cannula 4.0 12/15/19 07:07 107 24 92/65 (74) 98 5/20/20 07:00 103 19 83/53 (63) 98 12/15/19 06:00 101 29 87/57 (67) 98 12/15/19 05:30 102 26 96/72 (80) 96 12/15/19 05:00 106 22 111/94 (100) 95 12/15/19 04:30 105 25 109/76 (87) 96 12/15/19 04:00 Nasal Cannula 4.0 Nasal Cannula 4.0 12/15/19 04:00 4.0 12/15/19 04:00 99.3 110 20 92/74 (80) 100 12/15/19 04:00 101 12/15/19 03:30 106 24 136/92 (107) 98 12/15/19 03:00 99 28 107/89 (95) 94 12/15/19 02:00 98 25 83/58 (66) 100 12/15/19 01:00 107 21 111/69 (83) 97 12/15/19 00:00 4.0 12/15/19 00:00 98.6 106 29 101/54 (70) 100 12/15/19 00:00 Venturi Mask Venturi Mask 12/14/19 23:00 108 29 90/64 (73) 99 12/14/19 22:00 108 30 90/59 (69) 97 12/14/19 21:21 55 12/14/19 21:20 109 92/53 12/14/19 21:20 92/53 12/14/19 21:00 116 32 108/72 (84) 12/14/19 20:00 Nasal Cannula 4.0 Nasal Cannula 4.0 12/14/19 20:00 106 12/14/19 20:00 4.0 12/14/19 20:00 101.0 108 32 97/58 (71) 94 12/14/19 19:00 109 31 92/53 (66) 96 12/14/19 18:00 113 28 117/54 (75) 97 12/14/19 17:00 110 27 92/55 (67) 97 12/14/19 16:00 Nasal Cannula 4.0 Nasal Cannula 4.0 12/14/19 16:00 101 12/14/19 16:00 4.0 12/14/19 16:00 98.7 104 26 169/98 (121) 96 12/14/19 15:30 107 27 162/129 (140) 97 12/14/19 15:00 107 29 140/90 (107) 97 12/14/19 14:45 108 27 101/78 (86) 100 12/14/19 14:30 112 29 125/74 (91) 100 12/14/19 14:00 105 27 136/119 (125) 94 12/14/19 13:30 111 24 101/62 (75) 95 12/14/19 13:15 108 27 134/103 (113) 94 12/14/19 13:00 112 30 151/121 (131) 96 12/14/19 12:48 Nasal Cannula 4.0 36 12/14/19 12:45 114 32 120/102 (108) 98 12/14/19 12:30 4.0 12/14/19 12:30 102 27 118/93 (101) 98 12/14/19 12:15 101 28 91/69 (76) 99 12/14/19 12:00 105 12/14/19 12:00 Mechanical Ventilator 12/14/19 12:00 30 12/14/19 12:00 100.0 102 29 105/87 (93) Intake and Output 12/14/19 12/15/19 19:00 07:00 Intake Total 1106.6667 ml 768.80 ml Output Total 1200 ml 710 ml Balance -93.3333 ml 58.80 ml Intake IV Total 1106.6667 ml 768.80 ml Output Urine Total 1200 ml 710 ml # Bowel Movements 1 1 Laboratory Tests 12/14/19 21:04: Arterial Blood pH 7.495H, Arterial Blood Partial Pressure CO2 26.7L, Arterial Blood Partial Pressure O2 56.9L, Arterial Blood HCO3 20.1L, Arterial Blood Oxygen Saturation 91.0L, Arterial Blood Base Excess -2.3L, Scotty Test Positive 12/15/19 04:00: White Blood Count 11.7H, Red Blood Count 3.23L, Hemoglobin 9.9L, Hematocrit 27.6L, Mean Corpuscular Volume 85, Mean Corpuscular Hemoglobin 30.7, Mean Corpuscular Hemoglobin Concent 36.0, Red Cell Distribution Width 12.8, Platelet Count 116L, Mean Platelet Volume 8.2, Neutrophils (%) (Auto) 77.6H, Lymphocytes (%) (Auto) 14.4L, Monocytes (%) (Auto) 4.6, Eosinophils (%) (Auto) 2.5, Basophils (%) (Auto) 0.9, Stool Occult Blood [Pending], Sodium Level 157H, Potassium Level 3.3L, Chloride Level 122H, Carbon Dioxide Level 24, Anion Gap 11 , Blood Urea Nitrogen 16, Creatinine 0.7, Estimat Glomerular Filtration Rate > 60, Glucose Level 115#H, Calcium Level 8.2L, Phosphorus Level 2.2L, Magnesium Level 2.2, Total Bilirubin 0.5, Aspartate Amino Transf (AST/SGOT) 143H, Alanine Aminotransferase (ALT/SGPT) 193H, Alkaline Phosphatase 123H, Ammonia 24, C- Reactive Protein, Quantitative 37.7H, Pro-B-Type Natriuretic Peptide 2091H, Total Protein 4.4L, Albumin 1.4L, Globulin 3.0, Albumin/Globulin Ratio 0.5L Height (Feet): 5 Height (Inches): 5.00 Weight (Pounds): 145 General Appearance: no apparent distress EENT: PERRL/EOMI Neck: supple Cardiovascular: normal rate Respiratory/Chest: decreased breath sounds Abdomen: normal bowel sounds, non tender, soft Extremities: non-tender Maykel Stephen MD December 15, 2019 11:52
[2019-12-15] MEDS: Acetaminophen 650 MG SUPP RECTAL PRN (13:20)
--- NOTE | 2019-12-15 14:35 | Consultation ---
History of Present Illness General Date patient seen: December 15, 2019 Chief Complaint: Altered Mental Status Present Illness HPI This is a 58-year-old female who presented to [facility] emergency department evaluation of being significantly altered altered mental status was found to be septic with abnormal labs anemia possible GI bleed admitted for further care and management intubated intensive care unit recently extubated who on examination during recovery was identified to have a sacral decub deep tissue injury. Surgery called to evaluate and assist with care. Patient seen, patient evaluated, chart reviewed. Patient showing signs of malnutrition and has been fairly ill for some time now requiring further care and management. Has been transfused PRBC significant surgeons for GI bleed currently no active bleeding identified. Allergies: Coded Allergies: No Known Allergies (Unverified , 12/11/19) Patient History Limited by: medical condition History Provided By: Medical Record, PMD Healthcare decision maker N Resuscitation status Advanced Directive on File Past Medical/Surgical History Past Medical/Surgical History: (1) Hyperkalemia (2) Cardiac arrest (3) DKA (diabetic ketoacidoses) (4) Respiratory distress (5) Altered mental status (6) Coffee ground emesis (7) High serum creatine (8) High blood urea nitrogen (BUN) (9) Abnormal TSH (10) DEANDRA (acute kidney injury) (11) Hypotension (12) Electrolyte imbalance Review of Systems All Other Systems: negative except mentioned in HPI ROS Narrative Difficult to obtain given current medical condition mental status confusion Physical Exam General Appearance: no apparent distress, alert Lines, tubes and drains: other HEENT: mucous membranes moist Neck: supple, normal inspection Respiratory/Chest: no respiratory distress, no accessory muscle use, decreased breath sounds Cardiovascular/Chest: normal rate, regular rhythm Abdomen: normal bowel sounds, soft, no organomegaly, no mass Genitourinary/Rectal: normal rectal exam Extremities: non-tender, normal inspection Skin Exam: warm/dry Neurologic: alert Last 24 Hour Vital Signs Date Time Temp Pulse Resp B/P (MAP) Pulse Ox O2 Delivery O2 Flow Rate FiO2 12/15/19 12:00 117 12/15/19 12:00 118 31 93/58 (70) 96 12/15/19 11:00 118 35 89/52 (64) 96 12/15/19 10:17 97 Nasal Cannula 3.0 32 12/15/19 10:00 117 24 90/56 (67) 97 12/15/19 09:30 115 22 108/71 (83) 96 12/15/19 09:00 107 34 86/48 (61) 98 12/15/19 08:00 98.8 111 30 92/59 (70) 96 12/15/19 08:00 4.0 12/15/19 08:00 Nasal Cannula 4.0 Nasal Cannula 4.0 12/15/19 08:00 108 12/15/19 07:07 107 24 92/65 (74) 98 12/15/19 07:00 103 19 83/53 (63) 98 12/15/19 06:00 101 29 87/57 (67) 98 12/15/19 05:30 102 26 96/72 (80) 96 12/15/19 05:00 106 22 111/94 (100) 95 12/15/19 04:30 105 25 109/76 (87) 96 12/15/19 04:00 Nasal Cannula 4.0 Nasal Cannula 4.0 12/15/19 04:00 4.0 12/15/19 04:00 99.3 110 20 92/74 (80) 100 12/15/19 04:00 101 12/15/19 03:30 106 24 136/92 (107) 98 12/15/19 03:00 99 28 107/89 (95) 94 12/15/19 02:00 98 25 83/58 (66) 100 12/15/19 01:00 107 21 111/69 (83) 97 12/15/19 00:00 4.0 12/15/19 00:00 98.6 106 29 101/54 (70) 100 12/15/19 00:00 Venturi Mask Venturi Mask 12/14/19 23:00 108 29 90/64 (73) 99 12/14/19 22:00 108 30 90/59 (69) 97 12/14/19 21:21 55 12/14/19 21:20 109 92/53 12/14/19 21:20 92/53 12/14/19 21:00 116 32 108/72 (84) 12/14/19 20:00 Nasal Cannula 4.0 Nasal Cannula 4.0 12/14/19 20:00 106 12/14/19 20:00 4.0 12/14/19 20:00 101.0 108 32 97/58 (71) 94 12/14/19 19:00 109 31 92/53 (66) 96 12/14/19 18:00 113 28 117/54 (75) 97 12/14/19 17:00 110 27 92/55 (67) 97 12/14/19 16:00 Nasal Cannula 4.0 Nasal Cannula 4.0 12/14/19 16:00 101 12/14/19 16:00 4.0 12/14/19 16:00 98.7 104 26 169/98 (121) 96 12/14/19 15:30 107 27 162/129 (140) 97 12/14/19 15:00 107 29 140/90 (107) 97 12/14/19 14:45 108 27 101/78 (86) 100 Intake and Output 12/14/19 12/15/19 19:00 07:00 Intake Total 1106.6667 ml 768.80 ml Output Total 1200 ml 710 ml Balance -93.3333 ml 58.80 ml Intake IV Total 1106.6667 ml 768.80 ml Output Urine Total 1200 ml 710 ml # Bowel Movements 1 1 Laboratory Tests Test 12/14/19 21:04 12/15/19 04:00 Arterial Blood pH 7.495 (7.350-7.450) Arterial Blood Partial Pressure CO2 26.7 mmHg (35.0-45.0) L Arterial Blood Partial Pressure O2 56.9 mmHg (75.0-100.0) L Arterial Blood HCO3 20.1 mmol/L (22.0-26.0) L Arterial Blood Oxygen Saturation 91.0 % (95-100) L Arterial Blood Base Excess -2.3 (-2-2) L Scotty Test Positive White Blood Count 11.7 K/UL (4.8-10.8) H Red Blood Count 3.23 M/UL (4.20-5.40) L Hemoglobin 9.9 G/DL (12.0-16.0) L Hematocrit 27.6 % (37.0-47.0) L Mean Corpuscular Volume 85 FL (80-99) Mean Corpuscular Hemoglobin 30.7 PG (27.0-31.0) Mean Corpuscular Hemoglobin Concent 36.0 G/DL (32.0-36.0) Red Cell Distribution Width 12.8 % (11.6-14.8) Platelet Count 116 K/UL (150-450) L Mean Platelet Volume 8.2 FL (6.5-10.1) Neutrophils (%) (Auto) 77.6 % (45.0-75.0) H Lymphocytes (%) (Auto) 14.4 % (20.0-45.0) L Monocytes (%) (Auto) 4.6 % (1.0-10.0) Eosinophils (%) (Auto) 2.5 % (0.0-3.0) Basophils (%) (Auto) 0.9 % (0.0-2.0) Stool Occult Blood Positive (NEGATIVE) Sodium Level 157 MMOL/L (136-145) H Potassium Level 3.3 MMOL/L (3.5-5.1) L Chloride Level 122 MMOL/L (98-107) H Carbon Dioxide Level 24 MMOL/L (21-32) Anion Gap 11 mmol/L (5-15) Blood Urea Nitrogen 16 mg/dL (7-18) Creatinine 0.7 MG/DL (0.55-1.30) Estimat Glomerular Filtration Rate > 60 mL/min (>60) Glucose Level 115 MG/DL (74-106) #H Calcium Level 8.2 MG/DL (8.5-10.1) L Phosphorus Level 2.2 MG/DL (2.5-4.9) L Magnesium Level 2.2 MG/DL (1.8-2.4) Total Bilirubin 0.5 MG/DL (0.2-1.0) Aspartate Amino Transf (AST/SGOT) 143 U/L (15-37) H Alanine Aminotransferase (ALT/SGPT) 193 U/L (12-78) H Alkaline Phosphatase 123 U/L (46-116) H Ammonia 24 umol/L (11-32) C-Reactive Protein, Quantitative 37.7 mg/dL (0.00-0.90) H Pro-B-Type Natriuretic Peptide 2091 pg/mL (0-125) H Total Protein 4.4 G/DL (6.4-8.2) L Albumin 1.4 G/DL (3.4-5.0) L Globulin 3.0 g/dL Albumin/Globulin Ratio 0.5 (1.0-2.7) L Height (Feet): 5 Height (Inches): 5.00 Weight (Pounds): 145 Medications Current Medications Medications (Trade) Dose Ordered Sig/Esequiel Route PRN Reason Start Time Stop Time Status Last Admin Dose Admin Acetaminophen (Tylenol) 650 mg Q4H PRN GT Mild Pain (Pain Scale 1-3) 12/11/19 16:45 01/10/20 16:44 12/13/19 20:41 Acetaminophen (Tylenol) 650 mg Q4H PRN RECTAL Mild Pain (Pain Scale 1-3) 12/11/19 16:45 01/10/20 16:44 12/15/19 13:20 Chlorhexidine Gluconate (Bijal-Hex 2%) 1 applic DAILY@2000 TOPIC 12/12/19 20:00 03/11/20 19:59 12/14/19 20:44 Dextrose 1,000 ml @ 50 mls/hr Q20H IV 12/14/19 09:00 01/13/20 08:59 12/15/19 04:57 Dextrose (Dextrose 50%) 25 ml Q30M PRN IV Hypoglycemia 12/13/19 02:00 03/12/20 01:59 Dextrose (Dextrose 50%) 50 ml Q30M PRN IV Hypoglycemia 12/13/19 02:00 03/12/20 01:59 Insulin Aspart (NovoLOG) Q4HR SUBQ 12/13/19 05:00 03/12/20 04:59 12/15/19 13:50 Insulin Detemir (Levemir) 14 units BID SUBQ 12/14/19 09:00 03/12/20 08:59 12/15/19 09:38 Metoclopramide HCl (Reglan) 5 mg EVERY 8 HOURS IVP 12/12/19 14:00 01/11/20 13:59 12/15/19 13:20 Midodrine (Pro-Amatine) 2.5 mg THREE TIMES A DAY GT 12/15/19 13:00 03/14/20 12:59 12/15/19 13:19 Ondansetron HCl (Zofran) 4 mg Q6H PRN IVP Nausea & Vomiting 12/11/19 16:45 01/10/20 16:44 Pantoprazole (Protonix) 40 mg EVERY 12 HOURS IVP 12/12/19 09:00 01/11/20 08:59 12/15/19 09:12 Piperacillin Sod/ Tazobactam Sod 3.375 gm/Sodium Chloride 110 ml @ 27.5 mls/hr EVERY 8 HOURS IVPB 12/12/19 14:00 12/17/19 13:59 12/15/19 13:19 Potassium Phosphate 250 ml @ 62.5 mls/hr Q4H IVPB 12/15/19 09:00 12/15/19 16:59 12/15/19 13:19 Assessment/Plan Problem List: (1) Cardiac arrest ICD Codes: I46.9 - Cardiac arrest, cause unspecified SNOMED: 155103247 (2) DKA (diabetic ketoacidoses) ICD Codes: E11.10 - Type 2 diabetes mellitus with ketoacidosis without coma SNOMED: 284062655, 16332334 Qualifiers: Qualified Codes: E13.11 - Other specified diabetes mellitus with ketoacidosis with coma (3) Respiratory distress ICD Codes: R06.03 - Acute respiratory distress SNOMED: 510211177 (4) Altered mental status ICD Codes: R41.82 - Altered mental status, unspecified SNOMED: 755706506, 36794661 Qualifiers: Qualified Codes: R41.82 - Altered mental status, unspecified (5) Coffee ground emesis Assessment & Plan: Coffee-ground emesis concerning for GI bleed. Transfuse PRBC now stable. No acute active bleeding noted. Discussed with GI. Will follow with recommendations hold on acute surgical intervention ICD Codes: K92.0 - Hematemesis SNOMED: 62964162 (6) High serum creatine ICD Codes: R79.89 - Other specified abnormal findings of blood chemistry SNOMED: 870086647, 990183761 (7) High blood urea nitrogen (BUN) ICD Codes: R79.9 - Abnormal finding of blood chemistry, unspecified SNOMED: 118914149, 944696932 (8) Abnormal TSH ICD Codes: R79.89 - Other specified abnormal findings of blood chemistry SNOMED: 156031977 (9) DEANDRA (acute kidney injury) ICD Codes: N17.9 - Acute kidney failure, unspecified SNOMED: 5381879, 95292935 (10) Hypotension ICD Codes: I95.9 - Hypotension, unspecified SNOMED: 05542580, 81818197 Qualifiers: Qualified Codes: I95.9 - Hypotension, unspecified (11) Electrolyte imbalance ICD Codes: E87.8 - Other disorders of electrolyte and fluid balance, not elsewhere classified SNOMED: 077720234 (12) Hyperkalemia ICD Codes: E87.5 - Hyperkalemia SNOMED: 46538993 (13) Deep tissue injury Assessment & Plan: Patient identified to have a sacral deep tissue injury. No areas of open skin. No signs of acute active infection. Patient critically ill intensive care unit on support slowly making a recovery. Will make all times prevention as well as initiate care plan for healing. Turn every 2 hours. Skin protectant OPTi foam dressing. Offload heels with pillows. Will monitor closely. Great nursing care being provided. Nutritional optimization DAILY ESTIMATED NEEDS: Needs based on DM, pulmonary 65.5kg 25-30 kcals/kg 1388-5071 total kcals 1-1.5 g protein/kg 66-98 g total protein 25-30 mL/kg 7298-3501 total fluid mLs NUTRITION DIAGNOSIS: Swallowing difficulty r/t Cardiopulmonary arrest as evidenced by pt now orally intubated, ICU, adm w/ DKA, now on pressor support x3- now s/p extubation, pending FACILITY SALES AND ADMIN eval. CURRENT TF: NPO PO DIET RECOMMENDATIONS: [facility]/ TEXTURE PER FACILITY SALES AND ADMIN ADDITIONAL RECOMMENDATIONS: 1) Diet recs as above, FACILITY SALES AND ADMIN eval pending 2) Maintain calibrated bed scale wts 3) Replete lytes as needed 4) Add Glucerna w/ poor po intake ICD Codes: T14.8XXA - Other injury of unspecified body region, initial encounter SNOMED: 306276870 Enrrique Martins December 15, 2019 14:34
--- NOTE | 2019-12-15 18:45 | Progress Note ---
DATE: 12/15/2019 SUBJECTIVE: This is a 58-year-old female currently doing better. Improving. No distress. Sugar is fine. OBJECTIVE: VITAL SIGNS: Blood pressure is 130/70, pulse 84, respirations 18, no fever. CHEST: Bilaterally clear. CARDIOVASCULAR: Regular rhythm. ABDOMEN: Soft. Positive bowel sounds. EXTREMITIES: CCE. NEUROLOGICAL: Patient has generalized weakness. ASSESSMENT: 1. Acute cardiopulmonary arrest. 2. Diabetes, poorly controlled. 3. Weakness. 4. Renal failure. PLAN: 1. Continue current treatment. 2. Continue antibiotics, bronchodilator treatments. 3. Patient is tolerating diet. Frank Pinzon M.D. DR: SUDHAKAR JOB#: [id number] CC:
[2019-12-15] MEDS ORDERED: Acetaminophen 650 MG SUPP RECTAL PRN (20:00)
[2019-12-15] MEDS: Dyna-Hex 2% Top Sol 2oz TOPIC SCH (20:45)
[2019-12-15] MEDS: Piperacillin/Tazobactam 3.375 GM in NS 110 ML IVPB SCH (21:32)
[2019-12-16] VITALS: BP 124/62
[2019-12-16] MEDS: NovoLOG Insulin Flexpen SUBQ SCH ×6 (00:39→21:00)
[2019-12-16 04:00] VITALS: BP 115/69
[2019-12-16] MEDS: Metoclopramide 10mg/2ml Inj IVP SCH ×3 (05:17→21:31)
[2019-12-16] MEDS: Piperacillin/Tazobactam 3.375 GM in NS 110 ML IVPB SCH ×3 (05:18→21:30)
[2019-12-16 06:17] LABS: BASOPHILS % (AUTO) 0.8 % (0.0-2.0); EOSINOPHILS % (AUTO) 1.4 % (0.0-3.0); HEMATOCRIT 24.2 % (37.0-47.0); HEMOGLOBIN 8.7 G/DL (12.0-16.0); LYMPHOCYTES % (AUTO) 13.8 % (20.0-45.0); MEAN CORPUSCULAR VOLUME 86 FL (80-99); MONOCYTES % (AUTO) 4.5 % (1.0-10.0); NEUTROPHILS % (AUTO) 79.4 % (45.0-75.0); PLATELET COUNT 122 K/UL (150-450); RED BLOOD COUNT 2.81 M/UL (4.20-5.40); RED CELL DISTRIBUTION WIDTH 12.9 % (11.6-14.8); WHITE BLOOD COUNT 14.9 K/UL (4.8-10.8)
[2019-12-16 06:40] LABS: ALANINE AMINOTRANSFERASE 88 U/L (12-78); ALBUMIN 1.1 G/DL (3.4-5.0); ALBUMIN/GLOBULIN RATIO 0.3 (1.0-2.7); ANION GAP 10 mmol/L (5-15); ASPARTATE AMINO TRANSFERASE 45 U/L (15-37); BILIRUBIN,TOTAL 0.4 MG/DL (0.2-1.0); BLOOD UREA NITROGEN 19 mg/dL (7-18); CALCIUM 8.5 MG/DL (8.5-10.1); CARBON DIOXIDE 24 MMOL/L (21-32); CHLORIDE 120 MMOL/L (98-107); CREATININE 0.8 MG/DL (0.55-1.30); GAMMA GLUTAMYL TRANSPEPTIDASE 22 U/L (5-85); PHOSPHORUS 3.1 MG/DL (2.5-4.9); SODIUM 155 MMOL/L (136-145)
[2019-12-16 07:00] LABS: POTASSIUM 2.6 MMOL/L (3.5-5.1)
--- NOTE | 2019-12-16 07:20 | General Progress Note ---
Assessment/Plan Problem List: (1) DKA (diabetic ketoacidoses) ICD Codes: E11.10 - Type 2 diabetes mellitus with ketoacidosis without coma SNOMED: 291382868, 68473098 Qualifiers: Qualified Codes: E13.11 - Other specified diabetes mellitus with ketoacidosis with coma (2) Cardiac arrest ICD Codes: I46.9 - Cardiac arrest, cause unspecified SNOMED: 783259900 (3) Coffee ground emesis ICD Codes: K92.0 - Hematemesis SNOMED: 17470084 (4) Abnormal TSH ICD Codes: R79.89 - Other specified abnormal findings of blood chemistry SNOMED: 706497250 Assessment/Plan: reduce Levemir to 10 units bid continue Novolog sliding scale every 4 hours thyroid function studies suggestive of "sick euthyroid" no need for thyroid medications repeat thyroid function in 2 weeks Subjective Allergies: Coded Allergies: No Known Allergies (Unverified , 12/11/19) All Systems: reviewed and negative except above Subjective extubated and transferred out of ICU still NPO glucose values are trending down Item Value Date Time Bedside Blood Glucose 102 mg/dl 12/16/19 0500 Bedside Blood Glucose 103 mg/dl 12/16/19 0039 Bedside Blood Glucose 97 mg/dl 12/15/19 2049 Bedside Blood Glucose 110 mg/dl 12/15/19 1756 Bedside Blood Glucose 148 mg/dl H 12/15/19 1350 Bedside Blood Glucose 167 mg/dl H 12/15/19 0939 Bedside Blood Glucose 100 mg/dl 12/15/19 0424 Bedside Blood Glucose 135 mg/dl H 12/15/19 0004 Objective Last 24 Hour Vital Signs Date Time Temp Pulse Resp B/P (MAP) Pulse Ox O2 Delivery O2 Flow Rate FiO2 12/16/19 04:00 Nasal Cannula 4.0 Nasal Cannula 4.0 12/16/19 04:00 4.0 12/16/19 04:00 98.2 84 32 115/69 (84) 87 12/16/19 03:24 105 12/16/19 00:00 Nasal Cannula 4.0 Nasal Cannula 4.0 12/16/19 00:00 4.0 12/16/19 00:00 98.3 99 32 124/62 (82) 87 12/15/19 23:39 109 12/15/19 20:23 103 12/15/19 20:00 98.6 111 32 102/58 (73) 87 12/15/19 20:00 4.0 12/15/19 20:00 Nasal Cannula 4.0 Nasal Cannula 4.0 12/15/19 19:10 99 Nasal Cannula 3.0 32 12/15/19 19:00 111 35 103/55 (71) 96 12/15/19 18:00 109 37 99/59 (72) 97 12/15/19 17:00 108 37 102/61 (75) 96 12/15/19 16:00 Nasal Cannula 4.0 Nasal Cannula 4.0 12/15/19 16:00 4.0 12/15/19 16:00 97.2 110 32 97/61 (73) 87 12/15/19 15:43 115 12/15/19 15:00 112 37 98/61 (73) 98 12/15/19 14:00 107 37 91/58 (69) 98 12/15/19 13:50 97.2 12/15/19 13:00 118 32 100/73 (82) 95 12/15/19 12:00 117 12/15/19 12:00 4.0 12/15/19 12:00 118 31 93/58 (70) 96 12/15/19 12:00 100.4 118 31 93/58 (70) 96 12/15/19 12:00 Nasal Cannula 4.0 Nasal Cannula 4.0 12/15/19 11:00 118 35 89/52 (64) 96 12/15/19 10:17 97 Nasal Cannula 3.0 32 12/15/19 10:00 117 24 90/56 (67) 97 12/15/19 09:30 115 22 108/71 (83) 96 12/15/19 09:00 107 34 86/48 (61) 98 12/15/19 08:00 98.8 111 30 92/59 (70) 96 12/15/19 08:00 4.0 12/15/19 08:00 Nasal Cannula 4.0 Nasal Cannula 4.0 12/15/19 08:00 108 Intake and Output 12/15/19 12/16/19 19:00 07:00 Intake Total 1313.7 ml 572.45 ml Output Total 680 ml 400 ml Balance 633.7 ml 172.45 ml Intake IV Total 1313.7 ml 572.45 ml Output Urine Total 680 ml 400 ml # Bowel Movements 1 Laboratory Tests 12/16/19 05:45: White Blood Count 14.9H, Red Blood Count 2.81L, Hemoglobin 8.7L, Hematocrit 24.2L, Mean Corpuscular Volume 86, Mean Corpuscular Hemoglobin 31.0, Mean Corpuscular Hemoglobin Concent 36.0, Red Cell Distribution Width 12.9, Platelet Count 122L, Mean Platelet Volume 8.4, Neutrophils (%) (Auto) 79.4H, Lymphocytes (%) (Auto) 13.8L, Monocytes (%) (Auto) 4.5, Eosinophils (%) (Auto) 1.4, Basophils (%) (Auto) 0.8, Sodium Level 155H, Potassium Level 2.6*L, Chloride Level 120H, Carbon Dioxide Level 24, Anion Gap 10, Blood Urea Nitrogen 19H, Creatinine 0.8, Estimat Glomerular Filtration Rate > 60, Glucose Level 122H, Uric Acid 1.7L, Calcium Level 8.5, Phosphorus Level 3.1, Magnesium Level 2.0, Total Bilirubin 0.4, Gamma Glutamyl Transpeptidase 22, Aspartate Amino Transf ( AST/SGOT) 45H, Alanine Aminotransferase (ALT/SGPT) 88H, Alkaline Phosphatase [ Pending], C-Reactive Protein, Quantitative [Pending], Pro-B-Type Natriuretic Peptide 1308H, Total Protein 4.9L, Albumin 1.1L, Globulin 3.8, Albumin/Globulin Ratio 0.3L Height (Feet): 5 Height (Inches): 5.00 Weight (Pounds): 160 General Appearance: no apparent distress Neck: normal alignment Cardiovascular: normal rate Respiratory/Chest: lungs clear Abdomen: normal bowel sounds Objective Current Medications Medications (Trade) Dose Ordered Sig/Esequiel Route PRN Reason Start Time Stop Time Status Last Admin Dose Admin Acetaminophen (Tylenol) 650 mg Q4H PRN GT Mild Pain (Pain Scale 1-3) 12/15/19 20:00 01/10/20 19:59 Acetaminophen (Tylenol) 650 mg Q4H PRN RECTAL Mild Pain (Pain Scale 1-3) 12/15/19 20:00 01/10/20 19:59 Chlorhexidine Gluconate (Bijal-Hex 2%) 1 applic DAILY@1999 TOPIC 12/15/19 20:00 03/11/20 19:59 12/15/19 20:45 Dextrose 1,000 ml @ 50 mls/hr Q20H IV 12/15/19 19:45 01/13/20 08:59 12/15/19 20:45 Dextrose (Dextrose 50%) 25 ml Q30M PRN IV Hypoglycemia 12/15/19 20:00 03/12/20 01:59 Dextrose (Dextrose 50%) 50 ml Q30M PRN IV Hypoglycemia 12/15/19 20:00 03/12/20 01:59 Insulin Aspart (NovoLOG) Q4HR SUBQ 12/15/19 21:00 03/12/20 04:59 Insulin Detemir (Levemir) 14 units BID SUBQ 12/16/19 09:00 03/12/20 08:59 Metoclopramide HCl (Reglan) 5 mg EVERY 8 HOURS IVP 12/15/19 22:00 01/11/20 13:59 12/16/19 05:17 Midodrine (Pro-Amatine) 2.5 mg THREE TIMES A DAY GT 12/16/19 09:00 03/14/20 12:59 Ondansetron HCl (Zofran) 4 mg Q6H PRN IVP Nausea & Vomiting 12/15/19 20:00 01/10/20 19:59 Pantoprazole (Protonix) 40 mg EVERY 12 HOURS IVP 12/15/19 21:00 01/11/20 08:59 12/15/19 20:45 Piperacillin Sod/ Tazobactam Sod 3.375 gm/Sodium Chloride 110 ml @ 27.5 mls/hr EVERY 8 HOURS IVPB 12/15/19 22:00 12/17/19 13:59 12/16/19 05:18 Stef Ortega MD December 16, 2019 07:20
[2019-12-16 08:00] VITALS: BP 122/69
[2019-12-16] MEDS ORDERED: Lidocaine 1% Plain 30 ml INJ PRN (08:00)
[2019-12-16] MEDS ORDERED: Heparin1,000 units/500ml Premix(Conc:2 units/ml) IV PRN (08:00)
[2019-12-16 08:28] LABS: ALKALINE PHOSPHATASE 76 U/L (46-116)
[2019-12-16] MEDS ORDERED: Levemir Flexpen SUBQ SCH (09:00)
[2019-12-16] MEDS: Levemir Flexpen SUBQ SCH ×2 (09:13→18:19)
[2019-12-16] MEDS: Pantoprazole Inj IVP SCH ×2 (10:04→21:30)
--- NOTE | 2019-12-16 10:04 | General Progress Note ---
Assessment/Plan Problem List: (1) Coffee ground emesis ICD Codes: K92.0 - Hematemesis SNOMED: 59252829 (2) High blood urea nitrogen (BUN) ICD Codes: R79.9 - Abnormal finding of blood chemistry, unspecified SNOMED: 423401254, 421396090 (3) High serum creatine ICD Codes: R79.89 - Other specified abnormal findings of blood chemistry SNOMED: 234444049, 005913347 (4) DKA (diabetic ketoacidoses) ICD Codes: E11.10 - Type 2 diabetes mellitus with ketoacidosis without coma SNOMED: 721987970, 23500985 Qualifiers: Qualified Codes: E13.11 - Other specified diabetes mellitus with ketoacidosis with coma (5) Altered mental status ICD Codes: R41.82 - Altered mental status, unspecified SNOMED: 334290930, 29562086 Qualifiers: Qualified Codes: R41.82 - Altered mental status, unspecified (6) Cardiac arrest ICD Codes: I46.9 - Cardiac arrest, cause unspecified SNOMED: 531874485 (7) Respiratory distress ICD Codes: R06.03 - Acute respiratory distress SNOMED: 051741735 Assessment/Plan: s/p 2 units prbc in this admission no obvious GIB per nurses positive stool ob x1 ppi iv BID reglan monitor H&H transfuse to keep HGB above 7.5 extubated now failed swallow eval, pending repeat for today will fu Subjective ROS Limited/Unobtainable: No Allergies: Coded Allergies: No Known Allergies (Unverified , 12/11/19) Objective Last 24 Hour Vital Signs Date Time Temp Pulse Resp B/P (MAP) Pulse Ox O2 Delivery O2 Flow Rate FiO2 12/16/19 08:00 Nasal Cannula 4.0 Nasal Cannula 4.0 12/16/19 08:00 98.4 101 28 122/69 (86) 95 12/16/19 07:30 103 12/16/19 04:00 Nasal Cannula 4.0 Nasal Cannula 4.0 12/16/19 04:00 4.0 12/16/19 04:00 98.2 84 32 115/69 (84) 87 12/16/19 03:24 105 12/16/19 00:00 Nasal Cannula 4.0 Nasal Cannula 4.0 12/16/19 00:00 4.0 12/16/19 00:00 98.3 99 32 124/62 (82) 87 12/15/19 23:39 109 12/15/19 20:23 103 12/15/19 20:00 98.6 111 32 102/58 (73) 87 12/15/19 20:00 4.0 12/15/19 20:00 Nasal Cannula 4.0 Nasal Cannula 4.0 12/15/19 19:10 99 Nasal Cannula 3.0 32 12/15/19 19:00 111 35 103/55 (71) 96 12/15/19 18:00 109 37 99/59 (72) 97 12/15/19 17:00 108 37 102/61 (75) 96 12/15/19 16:00 Nasal Cannula 4.0 Nasal Cannula 4.0 12/15/19 16:00 4.0 12/15/19 16:00 97.2 110 32 97/61 (73) 87 12/15/19 15:43 115 12/15/19 15:00 112 37 98/61 (73) 98 12/15/19 14:00 107 37 91/58 (69) 98 12/15/19 13:50 97.2 12/15/19 13:00 118 32 100/73 (82) 95 12/15/19 12:00 117 12/15/19 12:00 4.0 12/15/19 12:00 118 31 93/58 (70) 96 12/15/19 12:00 100.4 118 31 93/58 (70) 96 12/15/19 12:00 Nasal Cannula 4.0 Nasal Cannula 4.0 12/15/19 11:00 118 35 89/52 (64) 96 12/15/19 10:17 97 Nasal Cannula 3.0 32 Intake and Output 12/15/19 12/16/19 19:00 07:00 Intake Total 1313.7 ml 649.95 ml Output Total 680 ml 400 ml Balance 633.7 ml 249.95 ml Intake IV Total 1313.7 ml 649.95 ml Output Urine Total 680 ml 400 ml # Bowel Movements 1 Laboratory Tests 12/16/19 05:45: White Blood Count 14.9H, Red Blood Count 2.81L, Hemoglobin 8.7L, Hematocrit 24.2L, Mean Corpuscular Volume 86, Mean Corpuscular Hemoglobin 31.0, Mean Corpuscular Hemoglobin Concent 36.0, Red Cell Distribution Width 12.9, Platelet Count 122L, Mean Platelet Volume 8.4, Neutrophils (%) (Auto) 79.4H, Lymphocytes (%) (Auto) 13.8L, Monocytes (%) (Auto) 4.5, Eosinophils (%) (Auto) 1.4, Basophils (%) (Auto) 0.8, Sodium Level 155H, Potassium Level 2.6*L, Chloride Level 120H, Carbon Dioxide Level 24, Anion Gap 10, Blood Urea Nitrogen 19H, Creatinine 0.8, Estimat Glomerular Filtration Rate > 60, Glucose Level 122H, Uric Acid 1.7L, Calcium Level 8.5, Phosphorus Level 3.1, Magnesium Level 2.0, Total Bilirubin 0.4, Gamma Glutamyl Transpeptidase 22, Aspartate Amino Transf ( AST/SGOT) 45H, Alanine Aminotransferase (ALT/SGPT) 88H, Alkaline Phosphatase 76 , C-Reactive Protein, Quantitative 26.1H, Pro-B-Type Natriuretic Peptide 1308H, Total Protein 4.9L, Albumin 1.1L, Globulin 3.8, Albumin/Globulin Ratio 0.3L Height (Feet): 5 Height (Inches): 5.00 Weight (Pounds): 160 General Appearance: lethargic EENT: normal ENT inspection Neck: supple Cardiovascular: normal rate Respiratory/Chest: decreased breath sounds Abdomen: normal bowel sounds, non tender, soft Extremities: non-tender Maykel Stephen MD December 16, 2019 10:04
--- NOTE | 2019-12-16 10:10 | Pulmonology Progress Note ---
Subjective ROS Limited/Unobtainable: No Interval Events: Extubated 12/13/19 Constitutional: Reports: no symptoms HEENT: Repors: no symptoms Respiratory: Reports: no symptoms Cardiovascular: Reports: no symptoms Gastrointestinal/Abdominal: Reports: no symptoms Genitourinary: Reports: no symptoms Allergies: Coded Allergies: No Known Allergies (Unverified , 12/11/19) All Systems: reviewed and negative except above Objective Last 24 Hour Vital Signs Date Time Temp Pulse Resp B/P (MAP) Pulse Ox O2 Delivery O2 Flow Rate FiO2 12/16/19 08:00 Nasal Cannula 4.0 Nasal Cannula 4.0 12/16/19 08:00 98.4 101 28 122/69 (86) 95 12/16/19 07:30 103 12/16/19 04:00 Nasal Cannula 4.0 Nasal Cannula 4.0 12/16/19 04:00 4.0 12/16/19 04:00 98.2 84 32 115/69 (84) 87 12/16/19 03:24 105 12/16/19 00:00 Nasal Cannula 4.0 Nasal Cannula 4.0 12/16/19 00:00 4.0 12/16/19 00:00 98.3 99 32 124/62 (82) 87 12/15/19 23:39 109 12/15/19 20:23 103 12/15/19 20:00 98.6 111 32 102/58 (73) 87 12/15/19 20:00 4.0 12/15/19 20:00 Nasal Cannula 4.0 Nasal Cannula 4.0 12/15/19 19:10 99 Nasal Cannula 3.0 32 12/15/19 19:00 111 35 103/55 (71) 96 12/15/19 18:00 109 37 99/59 (72) 97 12/15/19 17:00 108 37 102/61 (75) 96 12/15/19 16:00 Nasal Cannula 4.0 Nasal Cannula 4.0 12/15/19 16:00 4.0 12/15/19 16:00 97.2 110 32 97/61 (73) 87 12/15/19 15:43 115 12/15/19 15:00 112 37 98/61 (73) 98 12/15/19 14:00 107 37 91/58 (69) 98 5/20/20 13:50 97.2 12/15/19 13:00 118 32 100/73 (82) 95 12/15/19 12:00 117 12/15/19 12:00 4.0 12/15/19 12:00 118 31 93/58 (70) 96 12/15/19 12:00 100.4 118 31 93/58 (70) 96 12/15/19 12:00 Nasal Cannula 4.0 Nasal Cannula 4.0 12/15/19 11:00 118 35 89/52 (64) 96 12/15/19 10:17 97 Nasal Cannula 3.0 32 Intake and Output 12/15/19 12/16/19 19:00 07:00 Intake Total 1313.7 ml 649.95 ml Output Total 680 ml 400 ml Balance 633.7 ml 249.95 ml Intake IV Total 1313.7 ml 649.95 ml Output Urine Total 680 ml 400 ml # Bowel Movements 1 General Appearance: no acute distress HEENT: normocephalic Respiratory: chest wall non-tender, lungs clear Cardiovascular: normal peripheral pulses, normal rate Abdomen: normal bowel sounds Laboratory Tests 12/16/19 05:45: White Blood Count 14.9H, Red Blood Count 2.81L, Hemoglobin 8.7L, Hematocrit 24.2L, Mean Corpuscular Volume 86, Mean Corpuscular Hemoglobin 31.0, Mean Corpuscular Hemoglobin Concent 36.0, Red Cell Distribution Width 12.9, Platelet Count 122L, Mean Platelet Volume 8.4, Neutrophils (%) (Auto) 79.4H, Lymphocytes (%) (Auto) 13.8L, Monocytes (%) (Auto) 4.5, Eosinophils (%) (Auto) 1.4, Basophils (%) (Auto) 0.8, Sodium Level 155H, Potassium Level 2.6*L, Chloride Level 120H, Carbon Dioxide Level 24, Anion Gap 10, Blood Urea Nitrogen 19H, Creatinine 0.8, Estimat Glomerular Filtration Rate > 60, Glucose Level 122H, Uric Acid 1.7L, Calcium Level 8.5, Phosphorus Level 3.1, Magnesium Level 2.0, Total Bilirubin 0.4, Gamma Glutamyl Transpeptidase 22, Aspartate Amino Transf ( AST/SGOT) 45H, Alanine Aminotransferase (ALT/SGPT) 88H, Alkaline Phosphatase 76 , C-Reactive Protein, Quantitative 26.1H, Pro-B-Type Natriuretic Peptide 1308H, Total Protein 4.9L, Albumin 1.1L, Globulin 3.8, Albumin/Globulin Ratio 0.3L Current Medications Medications (Trade) Dose Ordered Sig/Esequiel Route PRN Reason Start Time Stop Time Status Last Admin Dose Admin Acetaminophen (Tylenol) 650 mg Q4H PRN GT Mild Pain (Pain Scale 1-3) 12/15/19 20:00 01/10/20 19:59 Acetaminophen (Tylenol) 650 mg Q4H PRN RECTAL Mild Pain (Pain Scale 1-3) 12/15/19 20:00 01/10/20 19:59 Chlorhexidine Gluconate (Bijal-Hex 2%) 1 applic DAILY@2000 TOPIC 12/15/19 20:00 03/11/20 19:59 12/15/19 20:45 Dextrose 1,000 ml @ 75 mls/hr [id number] IV 12/16/19 19:45 01/13/20 08:59 12/16/19 09:04 Dextrose (Dextrose 50%) 25 ml Q30M PRN IV Hypoglycemia 12/15/19 20:00 03/12/20 01:59 Dextrose (Dextrose 50%) 50 ml Q30M PRN IV Hypoglycemia 12/15/19 20:00 03/12/20 01:59 Insulin Aspart (NovoLOG) Q4HR SUBQ 12/15/19 21:00 03/12/20 04:59 12/16/19 09:14 Insulin Detemir (Levemir) 10 units BID SUBQ 12/16/19 09:00 03/12/20 08:59 12/16/19 09:13 Metoclopramide HCl (Reglan) 5 mg EVERY 8 HOURS IVP 12/15/19 22:00 01/11/20 13:59 12/16/19 05:17 Midodrine (Pro-Amatine) 2.5 mg THREE TIMES A DAY GT 12/16/19 09:00 03/14/20 12:59 Ondansetron HCl (Zofran) 4 mg Q6H PRN IVP Nausea & Vomiting 12/15/19 20:00 01/10/20 19:59 Pantoprazole (Protonix) 40 mg EVERY 12 HOURS IVP 12/15/19 21:00 01/11/20 08:59 12/16/19 10:04 Piperacillin Sod/ Tazobactam Sod 3.375 gm/Sodium Chloride 110 ml @ 27.5 mls/hr EVERY 8 HOURS IVPB 12/15/19 22:00 12/17/19 13:59 12/16/19 05:18 Potassium Chloride 100 ml @ 50 mls/hr Q2H IVPB 12/16/19 08:00 12/16/19 13:59 12/16/19 08:32 Assessment/Plan Assessment/Plan IMPRESSION: 1. DKA. Resolved 2. Upper GI bleed. 3. Respiratory failure. Now extubated 4. Lactic acidosis. DISCUSSION: Continue antibiotics. GI following for upper gastrointestinal bleeding, Not on pressors. I will continue oxygen, sedation, Protonix, DVT prophylaxis. I will follow carefully. Saturating 100% on 4L/min O2 Seen in DONAL[facility] Osorio Harirs Omar Syed MD December 16, 2019 10:10
[2019-12-16] MEDS ORDERED: Spironolactone 25mg tab ORAL SCH (11:15)
--- NOTE | 2019-12-16 11:15 | Nephrology Progress Note ---
Assessment/Plan Problem List: (1) DEANDRA (acute kidney injury) Assessment: Resolved (2) Hypotension (3) Cardiac arrest (4) DKA (diabetic ketoacidoses) (5) Respiratory distress (6) Coffee ground emesis (7) Electrolyte imbalance Assessment Acute renal failure which probably is superimposed on chronic kidney disease History of diabetes mellitus, most likely diabetic nephropathy. Presents with diabetic ketoacidosis Acute respiratory failure requiring intubation and mechanical ventilation Aspiration pneumonia, upper GI bleed Proteinuria and severe hypoalbuminemia should rule out nephrotic range proteinuria Anemia Electrolyte imbalances Plan Patient is now extubated Will replace potassium, magnesium, and phosphorus as needed 2 units of packed RBCs was transfused Hydrate as needed Monitor renal parameters Avoid nephrotoxic's Anemia work-up Urine studies Keep blood sugar and blood pressure in check Per consultants Discussed with RN Subjective ROS Limited/Unobtainable: No Constitutional: Reports: malaise Objective Objective Last 24 Hour Vital Signs Date Time Temp Pulse Resp B/P (MAP) Pulse Ox O2 Delivery O2 Flow Rate FiO2 12/16/19 08:00 Nasal Cannula 4.0 Nasal Cannula 4.0 12/16/19 08:00 98.4 101 28 122/69 (86) 95 12/16/19 07:30 103 12/16/19 04:00 Nasal Cannula 4.0 Nasal Cannula 4.0 12/16/19 04:00 4.0 12/16/19 04:00 98.2 84 32 115/69 (84) 87 12/16/19 03:24 105 12/16/19 00:00 Nasal Cannula 4.0 Nasal Cannula 4.0 12/16/19 00:00 4.0 12/16/19 00:00 98.3 99 32 124/62 (82) 87 12/15/19 23:39 109 12/15/19 20:23 103 12/15/19 20:00 98.6 111 32 102/58 (73) 87 12/15/19 20:00 4.0 12/15/19 20:00 Nasal Cannula 4.0 Nasal Cannula 4.0 12/15/19 19:10 99 Nasal Cannula 3.0 32 12/15/19 19:00 111 35 103/55 (71) 96 12/15/19 18:00 109 37 99/59 (72) 97 12/15/19 17:00 108 37 102/61 (75) 96 12/15/19 16:00 Nasal Cannula 4.0 Nasal Cannula 4.0 12/15/19 16:00 4.0 12/15/19 16:00 97.2 110 32 97/61 (73) 87 12/15/19 15:43 115 12/15/19 15:00 112 37 98/61 (73) 98 12/15/19 14:00 107 37 91/58 (69) 98 12/15/19 13:50 97.2 12/15/19 13:00 118 32 100/73 (82) 95 12/15/19 12:00 117 12/15/19 12:00 4.0 12/15/19 12:00 118 31 93/58 (70) 96 12/15/19 12:00 100.4 118 31 93/58 (70) 96 12/15/19 12:00 Nasal Cannula 4.0 Nasal Cannula 4.0 Intake and Output 12/15/19 12/16/19 19:00 07:00 Intake Total 1313.7 ml 649.95 ml Output Total 680 ml 400 ml Balance 633.7 ml 249.95 ml Intake IV Total 1313.7 ml 649.95 ml Output Urine Total 680 ml 400 ml # Bowel Movements 1 Laboratory Tests 12/16/19 05:45: White Blood Count 14.9H, Red Blood Count 2.81L, Hemoglobin 8.7L, Hematocrit 24.2L, Mean Corpuscular Volume 86, Mean Corpuscular Hemoglobin 31.0, Mean Corpuscular Hemoglobin Concent 36.0, Red Cell Distribution Width 12.9, Platelet Count 122L, Mean Platelet Volume 8.4, Neutrophils (%) (Auto) 79.4H, Lymphocytes (%) (Auto) 13.8L, Monocytes (%) (Auto) 4.5, Eosinophils (%) (Auto) 1.4, Basophils (%) (Auto) 0.8, Sodium Level 155H, Potassium Level 2.6*L, Chloride Level 120H, Carbon Dioxide Level 24, Anion Gap 10, Blood Urea Nitrogen 19H, Creatinine 0.8, Estimat Glomerular Filtration Rate > 60, Glucose Level 122H, Uric Acid 1.7L, Calcium Level 8.5, Phosphorus Level 3.1, Magnesium Level 2.0, Total Bilirubin 0.4, Gamma Glutamyl Transpeptidase 22, Aspartate Amino Transf ( AST/SGOT) 45H, Alanine Aminotransferase (ALT/SGPT) 88H, Alkaline Phosphatase 76 , C-Reactive Protein, Quantitative 26.1H, Pro-B-Type Natriuretic Peptide 1308H, Total Protein 4.9L, Albumin 1.1L, Globulin 3.8, Albumin/Globulin Ratio 0.3L Height (Feet): 5 Height (Inches): 5.00 Weight (Pounds): 160 General Appearance: no apparent distress, lethargic Cardiovascular: tachycardia Respiratory/Chest: decreased breath sounds Abdomen: distended Don Ventura MD December 16, 2019 11:15
[2019-12-16 12:00] VITALS: BP 120/78
[2019-12-16 16:00] VITALS: BP 118/78
--- NOTE | 2019-12-16 16:03 | Surgery Progress Note ---
Surgery Progress Note Subjective Symptoms: improved, tolerating diet, voiding well, passing flatus Objective Last 24 Hour Vital Signs Date Time Temp Pulse Resp B/P (MAP) Pulse Ox O2 Delivery O2 Flow Rate FiO2 12/16/19 15:22 97 12/16/19 12:00 98.8 101 25 120/78 (92) 95 12/16/19 12:00 Nasal Cannula 4.0 Nasal Cannula 4.0 12/16/19 11:21 100 12/16/19 08:00 Nasal Cannula 4.0 Nasal Cannula 4.0 12/16/19 08:00 98.4 101 28 122/69 (86) 95 12/16/19 07:30 103 12/16/19 04:00 Nasal Cannula 4.0 Nasal Cannula 4.0 12/16/19 04:00 4.0 12/16/19 04:00 98.2 84 32 115/69 (84) 87 12/16/19 03:24 105 12/16/19 00:00 Nasal Cannula 4.0 Nasal Cannula 4.0 12/16/19 00:00 4.0 12/16/19 00:00 98.3 99 32 124/62 (82) 87 12/15/19 23:39 109 12/15/19 20:23 103 12/15/19 20:00 98.6 111 32 102/58 (73) 87 12/15/19 20:00 4.0 12/15/19 20:00 Nasal Cannula 4.0 Nasal Cannula 4.0 12/15/19 19:10 99 Nasal Cannula 3.0 32 12/15/19 19:00 111 35 103/55 (71) 96 12/15/19 18:00 109 37 99/59 (72) 97 12/15/19 17:00 108 37 102/61 (75) 96 I&O Intake and Output 12/15/19 12/16/19 19:00 07:00 Intake Total 1313.7 ml 649.95 ml Output Total 680 ml 400 ml Balance 633.7 ml 249.95 ml Intake IV Total 1313.7 ml 649.95 ml Output Urine Total 680 ml 400 ml # Bowel Movements 1 Dressing: saturated Wound: other Drains: other Cardiovascular: RSR Respiratory: decreased breath sounds Abdomen: soft, present bowel sounds Extremities: no tenderness, no cyanosis Laboratory Tests Test 12/16/19 05:45 White Blood Count 14.9 K/UL (4.8-10.8) H Red Blood Count 2.81 M/UL (4.20-5.40) L Hemoglobin 8.7 G/DL (12.0-16.0) L Hematocrit 24.2 % (37.0-47.0) L Mean Corpuscular Volume 86 FL (80-99) Mean Corpuscular Hemoglobin 31.0 PG (27.0-31.0) Mean Corpuscular Hemoglobin Concent 36.0 G/DL (32.0-36.0) Red Cell Distribution Width 12.9 % (11.6-14.8) Platelet Count 122 K/UL (150-450) L Mean Platelet Volume 8.4 FL (6.5-10.1) Neutrophils (%) (Auto) 79.4 % (45.0-75.0) H Lymphocytes (%) (Auto) 13.8 % (20.0-45.0) L Monocytes (%) (Auto) 4.5 % (1.0-10.0) Eosinophils (%) (Auto) 1.4 % (0.0-3.0) Basophils (%) (Auto) 0.8 % (0.0-2.0) Sodium Level 155 MMOL/L (136-145) H Potassium Level 2.6 MMOL/L (3.5-5.1) *L Chloride Level 120 MMOL/L (98-107) H Carbon Dioxide Level 24 MMOL/L (21-32) Anion Gap 10 mmol/L (5-15) Blood Urea Nitrogen 19 mg/dL (7-18) H Creatinine 0.8 MG/DL (0.55-1.30) Estimat Glomerular Filtration Rate > 60 mL/min (>60) Glucose Level 122 MG/DL (74-106) H Uric Acid 1.7 MG/DL (2.6-7.2) L Calcium Level 8.5 MG/DL (8.5-10.1) Phosphorus Level 3.1 MG/DL (2.5-4.9) Magnesium Level 2.0 MG/DL (1.8-2.4) Total Bilirubin 0.4 MG/DL (0.2-1.0) Gamma Glutamyl Transpeptidase 22 U/L (5-85) Aspartate Amino Transf (AST/SGOT) 45 U/L (15-37) H Alanine Aminotransferase (ALT/SGPT) 88 U/L (12-78) H Alkaline Phosphatase 76 U/L (46-116) C-Reactive Protein, Quantitative 26.1 mg/dL (0.00-0.90) H Pro-B-Type Natriuretic Peptide 1308 pg/mL (0-125) H Total Protein 4.9 G/DL (6.4-8.2) L Albumin 1.1 G/DL (3.4-5.0) L Globulin 3.8 g/dL Albumin/Globulin Ratio 0.3 (1.0-2.7) L Plan Problems: (1) Cardiac arrest (2) DKA (diabetic ketoacidoses) (3) Respiratory distress (4) Altered mental status (5) Coffee ground emesis Assessment & Plan: Coffee-ground emesis concerning for GI bleed. Transfuse PRBC now stable. No acute active bleeding noted. Discussed with GI. Will follow with recommendations hold on acute surgical intervention (6) High serum creatine (7) High blood urea nitrogen (BUN) (8) Abnormal TSH (9) DEANDRA (acute kidney injury) (10) Hypotension (11) Electrolyte imbalance (12) Hyperkalemia (13) Deep tissue injury Assessment & Plan: Patient identified to have a sacral deep tissue injury. No areas of open skin. No signs of acute active infection. Patient critically ill intensive care unit on support slowly making a recovery. Will make all times prevention as well as initiate care plan for healing. Turn every 2 hours. Skin protectant OPTi foam dressing. Offload heels with pillows. Will monitor closely. Great nursing care being provided. Nutritional optimization DAILY ESTIMATED NEEDS: Needs based on DM, pulmonary 65.5kg 25-30 kcals/kg 0458-6369 total kcals 1-1.5 g protein/kg 66-98 g total protein 25-30 mL/kg 1460-1786 total fluid mLs NUTRITION DIAGNOSIS: Swallowing difficulty r/t Cardiopulmonary arrest as evidenced by pt now orally intubated, ICU, adm w/ DKA, now on pressor support x3- now s/p extubation, pending SHAGGER eval. CURRENT TF: NPO PO DIET RECOMMENDATIONS: [facility] MED DIET/ TEXTURE PER SHAGGER ADDITIONAL RECOMMENDATIONS: 1) Diet recs as above, SHAGGER eval pending 2) Maintain calibrated bed scale wts 3) Replete lytes as needed 4) Add Glucerna w/ poor po intake Enrrique Martins December 16, 2019 16:03
--- NOTE | 2019-12-16 16:29 | Cardiac Electrophysiology PN ---
Assessment/Plan Assessment/Plan 1. S/P Septic shock. Off pressors. EF 60%. EKG shows sinus tachycardia with no acute ST-T wave abnormalities. Already on broad-spectrum IV antibiotic 2. S/P Respiratory failure, Extubated 3. History of hypertension 4. Coffee-ground emesis.S/P 2 units of PRBC 5. Diabetic ketoacidosis off insulin drip. MICAELA RN Subjective Subjective Transferred out of ICU S/P 2 units of PRBC in sinus tach. Covid test from results pending. Pulling monitor and oxygen Objective Last 24 Hour Vital Signs Date Time Temp Pulse Resp B/P (MAP) Pulse Ox O2 Delivery O2 Flow Rate FiO2 12/16/19 16:00 Nasal Cannula 4.0 Nasal Cannula 4.0 12/16/19 16:00 98.2 97 26 118/78 (91) 96 12/16/19 15:22 97 12/16/19 12:00 98.8 101 25 120/78 (92) 95 12/16/19 12:00 Nasal Cannula 4.0 Nasal Cannula 4.0 12/16/19 11:21 100 12/16/19 08:00 Nasal Cannula 4.0 Nasal Cannula 4.0 12/16/19 08:00 98.4 101 28 122/69 (86) 95 12/16/19 07:30 103 12/16/19 04:00 Nasal Cannula 4.0 Nasal Cannula 4.0 12/16/19 04:00 4.0 12/16/19 04:00 98.2 84 32 115/69 (84) 87 12/16/19 03:24 105 12/16/19 00:00 Nasal Cannula 4.0 Nasal Cannula 4.0 12/16/19 00:00 4.0 12/16/19 00:00 98.3 99 32 124/62 (82) 87 12/15/19 23:39 109 12/15/19 20:23 103 12/15/19 20:00 98.6 111 32 102/58 (73) 87 12/15/19 20:00 4.0 12/15/19 20:00 Nasal Cannula 4.0 Nasal Cannula 4.0 12/15/19 19:10 99 Nasal Cannula 3.0 32 12/15/19 19:00 111 35 103/55 (71) 96 12/15/19 18:00 109 37 99/59 (72) 97 12/15/19 17:00 108 37 102/61 (75) 96 Intake and Output 12/15/19 12/16/19 19:00 07:00 Intake Total 1313.7 ml 649.95 ml Output Total 680 ml 400 ml Balance 633.7 ml 249.95 ml Intake IV Total 1313.7 ml 649.95 ml Output Urine Total 680 ml 400 ml # Bowel Movements 1 Laboratory Tests Test 12/16/19 05:45 White Blood Count 14.9 K/UL (4.8-10.8) H Red Blood Count 2.81 M/UL (4.20-5.40) L Hemoglobin 8.7 G/DL (12.0-16.0) L Hematocrit 24.2 % (37.0-47.0) L Mean Corpuscular Volume 86 FL (80-99) Mean Corpuscular Hemoglobin 31.0 PG (27.0-31.0) Mean Corpuscular Hemoglobin Concent 36.0 G/DL (32.0-36.0) Red Cell Distribution Width 12.9 % (11.6-14.8) Platelet Count 122 K/UL (150-450) L Mean Platelet Volume 8.4 FL (6.5-10.1) Neutrophils (%) (Auto) 79.4 % (45.0-75.0) H Lymphocytes (%) (Auto) 13.8 % (20.0-45.0) L Monocytes (%) (Auto) 4.5 % (1.0-10.0) Eosinophils (%) (Auto) 1.4 % (0.0-3.0) Basophils (%) (Auto) 0.8 % (0.0-2.0) Sodium Level 155 MMOL/L (136-145) H Potassium Level 2.6 MMOL/L (3.5-5.1) *L Chloride Level 120 MMOL/L (98-107) H Carbon Dioxide Level 24 MMOL/L (21-32) Anion Gap 10 mmol/L (5-15) Blood Urea Nitrogen 19 mg/dL (7-18) H Creatinine 0.8 MG/DL (0.55-1.30) Estimat Glomerular Filtration Rate > 60 mL/min (>60) Glucose Level 122 MG/DL (74-106) H Uric Acid 1.7 MG/DL (2.6-7.2) L Calcium Level 8.5 MG/DL (8.5-10.1) Phosphorus Level 3.1 MG/DL (2.5-4.9) Magnesium Level 2.0 MG/DL (1.8-2.4) Total Bilirubin 0.4 MG/DL (0.2-1.0) Gamma Glutamyl Transpeptidase 22 U/L (5-85) Aspartate Amino Transf (AST/SGOT) 45 U/L (15-37) H Alanine Aminotransferase (ALT/SGPT) 88 U/L (12-78) H Alkaline Phosphatase 76 U/L (46-116) C-Reactive Protein, Quantitative 26.1 mg/dL (0.00-0.90) H Pro-B-Type Natriuretic Peptide 1308 pg/mL (0-125) H Total Protein 4.9 G/DL (6.4-8.2) L Albumin 1.1 G/DL (3.4-5.0) L Globulin 3.8 g/dL Albumin/Globulin Ratio 0.3 (1.0-2.7) L Objective HEAD AND NECK: No JVD LUNGS: Coarse rhonchi. CARDIOVASCULAR: Irregular S1-S2 and tachycardic. ABDOMEN: Soft. EXTREMITIES: No pitting edema. Gerardo Dyer MD December 16, 2019 16:29
[2019-12-16 20:00] VITALS: BP 108/71
[2019-12-16] MEDS: Dyna-Hex 2% Top Sol 2oz TOPIC SCH (21:30)
[2019-12-16] MEDS: Acetaminophen 650mg/20.3ml GT PRN (21:51)
--- NOTE | 2019-12-16 23:30 | Progress Note ---
DATE: 12/16/2019 SUBJECTIVE: This is an elderly female who extubated, doing okay, but failed to swallow evaluation. There is still a bit of a cough and feeling short of breath and cough while swallowing. Speech therapy based on the case. The patient is physically doing better. Sugar is improving. OBJECTIVE: VITAL SIGNS: Blood pressure is 120/78, pulse 101, temperature 98.8. HEENT: NAD. CHEST: Bilaterally decreased breath sounds. CARDIOVASCULAR: Regular rhythm. ABDOMEN: Soft. Positive bowel sounds. EXTREMITIES: CCE. LABORATORY DATA: Her white counts are 15,000, hemoglobin 8.7. Potassium is low today. Potassium is 2.6, BUN 19, creatinine 0.8. ASSESSMENT: 1. Acute respiratory failure. 2. Dysphagia. 3. Hypokalemia. 4. Sepsis. 5. Acute cardiopulmonary arrest. PLAN: We will currently continue Levemir, sliding scale, Accu-Chek, insulin, and speech and swallow evaluation. Continue current treatment. Frank Pinzon M.D. DR: PIERRE JOB#: [id number] CC:
[2019-12-17] VITALS: BP 96/52
[2019-12-17] MEDS: NovoLOG Insulin Flexpen SUBQ SCH ×6 (00:35→22:25)
[2019-12-17 04:00] VITALS: BP 113/76
[2019-12-17] MEDS: Metoclopramide 10mg/2ml Inj IVP SCH ×3 (05:13→21:47)
[2019-12-17] MEDS: Piperacillin/Tazobactam 3.375 GM in NS 110 ML IVPB SCH (05:13)
[2019-12-17 05:37] LABS: BASOPHILS % (AUTO) 0.6 % (0.0-2.0); EOSINOPHILS % (AUTO) 2.6 % (0.0-3.0); HEMATOCRIT 22.9 % (37.0-47.0); HEMOGLOBIN 8.1 G/DL (12.0-16.0); LYMPHOCYTES % (AUTO) 15.8 % (20.0-45.0); MEAN CORPUSCULAR VOLUME 87 FL (80-99); MONOCYTES % (AUTO) 5.2 % (1.0-10.0); NEUTROPHILS % (AUTO) 75.9 % (45.0-75.0); PLATELET COUNT 129 K/UL (150-450); RED BLOOD COUNT 2.64 M/UL (4.20-5.40); RED CELL DISTRIBUTION WIDTH 12.9 % (11.6-14.8); WHITE BLOOD COUNT 15.8 K/UL (4.8-10.8)
[2019-12-17 05:51] LABS: ANION GAP 12 mmol/L (5-15); BLOOD UREA NITROGEN 18 mg/dL (7-18); CALCIUM 7.7 MG/DL (8.5-10.1); CARBON DIOXIDE 22 MMOL/L (21-32); CHLORIDE 120 MMOL/L (98-107); CREATININE 0.8 MG/DL (0.55-1.30); POTASSIUM 2.8 MMOL/L (3.5-5.1); SODIUM 153 MMOL/L (136-145)
[2019-12-17 06:09] LABS: ALANINE AMINOTRANSFERASE 60 U/L (12-78); ALBUMIN 1.1 G/DL (3.4-5.0); ALKALINE PHOSPHATASE 94 U/L (46-116); ASPARTATE AMINO TRANSFERASE 26 U/L (15-37); BILIRUBIN,DIRECT < 0.1 MG/DL (0.0-0.3); BILIRUBIN,TOTAL 0.4 MG/DL (0.2-1.0); PHOSPHORUS 3.3 MG/DL (2.5-4.9)
--- NOTE | 2019-12-17 06:53 | General Progress Note ---
Assessment/Plan Problem List: (1) DKA (diabetic ketoacidoses) ICD Codes: E11.10 - Type 2 diabetes mellitus with ketoacidosis without coma SNOMED: 420635152, [id number] Qualifiers: Qualified Codes: E13.11 - Other specified diabetes mellitus with ketoacidosis with coma (2) Cardiac arrest ICD Codes: I46.9 - Cardiac arrest, cause unspecified SNOMED: 558252429 (3) Coffee ground emesis ICD Codes: K92.0 - Hematemesis SNOMED: 89063579 (4) Abnormal TSH ICD Codes: R79.89 - Other specified abnormal findings of blood chemistry SNOMED: 788361770 Assessment/Plan: continue Levemir 10 units bid continue Novolog sliding scale every 4 hours swallow evaluation thyroid function studies suggestive of "sick euthyroid" no need for thyroid medications repeat thyroid function in 2 weeks Subjective ROS Limited/Unobtainable: Yes Allergies: Coded Allergies: No Known Allergies (Unverified , 12/11/19) Subjective events noted still NPO on IV fluid glucose values are stable Item Value Date Time Bedside Blood Glucose 160 mg/dl H 12/17/19 0500 Bedside Blood Glucose 130 mg/dl H 12/17/19 0035 Bedside Blood Glucose 138 mg/dl H 12/16/19 2100 Bedside Blood Glucose 146 mg/dl H 12/16/19 1820 Bedside Blood Glucose 143 mg/dl H 12/16/19 1239 Bedside Blood Glucose 142 mg/dl H 12/16/19 0914 Bedside Blood Glucose 102 mg/dl 12/16/19 0500 Objective Last 24 Hour Vital Signs Date Time Temp Pulse Resp B/P (MAP) Pulse Ox O2 Delivery O2 Flow Rate FiO2 12/17/19 04:00 Nasal Cannula 4.0 Nasal Cannula 4.0 12/17/19 04:00 87 12/17/19 04:00 98.8 89 24 113/76 (88) 98 12/17/19 00:00 83 12/17/19 00:00 Nasal Cannula 4.0 Nasal Cannula 4.0 12/17/19 00:00 98.2 81 24 96/52 (67) 98 12/16/19 22:24 99.8 12/16/19 20:00 Nasal Cannula 4.0 Nasal Cannula 4.0 12/16/19 20:00 89 12/16/19 20:00 100.0 89 24 108/71 (83) 98 12/16/19 16:00 Nasal Cannula 4.0 Nasal Cannula 4.0 12/16/19 16:00 98.2 97 26 118/78 (91) 96 12/16/19 15:22 97 12/16/19 12:00 98.8 101 25 120/78 (92) 95 12/16/19 12:00 Nasal Cannula 4.0 Nasal Cannula 4.0 12/16/19 11:21 100 12/16/19 08:00 Nasal Cannula 4.0 Nasal Cannula 4.0 12/16/19 08:00 98.4 101 28 122/69 (86) 95 12/16/19 07:30 103 Intake and Output 12/16/19 12/17/19 19:00 07:00 Intake Total 1165.0 ml 887.5 ml Output Total 600 ml 500 ml Balance 565.0 ml 387.5 ml Intake IV Total 1165.0 ml 887.5 ml Output Urine Total 600 ml 500 ml # Bowel Movements 2 4 Laboratory Tests 12/17/19 04:25: White Blood Count 15.8H, Red Blood Count 2.64L, Hemoglobin 8.1L, Hematocrit 22.9L, Mean Corpuscular Volume 87, Mean Corpuscular Hemoglobin 30.7, Mean Corpuscular Hemoglobin Concent 35.3, Red Cell Distribution Width 12.9, Platelet Count 129L, Mean Platelet Volume 8.2, Neutrophils (%) (Auto) 75.9H, Lymphocytes (%) (Auto) 15.8L, Monocytes (%) (Auto) 5.2, Eosinophils (%) (Auto) 2.6, Basophils (%) (Auto) 0.6, Sodium Level 153H, Potassium Level 2.8L, Chloride Level 120H, Carbon Dioxide Level 22, Anion Gap 12, Blood Urea Nitrogen 18, Creatinine 0.8, Estimat Glomerular Filtration Rate > 60, Glucose Level 188H, Calcium Level 7.7L, Phosphorus Level 3.3, Magnesium Level 2.1, Total Bilirubin 0.4, Direct Bilirubin < 0.1, Aspartate Amino Transf (AST/SGOT) 26, Alanine Aminotransferase (ALT/SGPT) 60, Alkaline Phosphatase 94, Total Protein 4.7L, Albumin 1.1L Height (Feet): 5 Height (Inches): 5.00 Weight (Pounds): 155 General Appearance: no apparent distress Neck: normal alignment Cardiovascular: normal rate Respiratory/Chest: lungs clear Abdomen: normal bowel sounds Pelvis: normal external exam Objective Current Medications Medications (Trade) Dose Ordered Sig/Esequiel Route PRN Reason Start Time Stop Time Status Last Admin Dose Admin Acetaminophen (Tylenol) 650 mg Q4H PRN GT Mild Pain (Pain Scale 1-3) 12/15/19 20:00 01/10/20 19:59 Acetaminophen (Tylenol) 650 mg Q4H PRN RECTAL Mild Pain (Pain Scale 1-3) 12/15/19 20:00 01/10/20 19:59 12/16/19 21:54 Chlorhexidine Gluconate (Bijal-Hex 2%) 1 applic DAILY@2000 TOPIC 12/15/19 20:00 03/11/20 19:59 12/16/19 21:30 Dextrose 1,000 ml @ 75 mls/hr [id number] IV 12/16/19 19:45 01/13/20 08:59 12/16/19 21:59 Dextrose (Dextrose 50%) 25 ml Q30M PRN IV Hypoglycemia 12/15/19 20:00 03/12/20 01:59 Dextrose (Dextrose 50%) 50 ml Q30M PRN IV Hypoglycemia 12/15/19 20:00 03/12/20 01:59 Heparin Sodium/ Sodium Chloride (Heparin 1000 units/500ml Premix) 1,000 unit ONCE PRN IV PICC PLACEMENT 12/16/19 08:00 12/17/19 23:59 Insulin Aspart (NovoLOG) Q4HR SUBQ 12/15/19 21:00 03/12/20 04:59 12/16/19 18:20 Insulin Detemir (Levemir) 10 units BID SUBQ 12/16/19 09:00 03/12/20 08:59 12/16/19 18:19 Lidocaine HCl (Xylocaine 1% 30ml) 30 ml ONCE PRN INJ PICC PLACEMENT 12/16/19 08:00 12/17/19 23:59 Metoclopramide HCl (Reglan) 5 mg EVERY 8 HOURS IVP 12/15/19 22:00 01/11/20 13:59 12/17/19 05:13 Midodrine (Pro-Amatine) 2.5 mg EVERY 8 HOURS ORAL 12/16/19 22:00 03/14/20 12:59 12/16/19 21:32 Ondansetron HCl (Zofran) 4 mg Q6H PRN IVP Nausea & Vomiting 12/15/19 20:00 01/10/20 19:59 Pantoprazole (Protonix) 40 mg EVERY 12 HOURS IVP 12/15/19 21:00 01/11/20 08:59 12/16/19 21:30 Piperacillin Sod/ Tazobactam Sod 3.375 gm/Sodium Chloride 110 ml @ 27.5 mls/hr EVERY 8 HOURS IVPB 12/15/19 22:00 12/17/19 13:59 12/17/19 05:13 Stef Ortega MD December 17, 2019 06:52
[2019-12-17 08:00] VITALS: BP 108/68
--- NOTE | 2019-12-17 09:28 | General Progress Note ---
Assessment/Plan Problem List: (1) Coffee ground emesis ICD Codes: K92.0 - Hematemesis SNOMED: 32060042 (2) High blood urea nitrogen (BUN) ICD Codes: R79.9 - Abnormal finding of blood chemistry, unspecified SNOMED: 765121599, 052128327 (3) High serum creatine ICD Codes: R79.89 - Other specified abnormal findings of blood chemistry SNOMED: 624361420, 144342862 (4) DKA (diabetic ketoacidoses) ICD Codes: E11.10 - Type 2 diabetes mellitus with ketoacidosis without coma SNOMED: 060275515, 50988416 Qualifiers: Qualified Codes: E13.11 - Other specified diabetes mellitus with ketoacidosis with coma (5) Altered mental status ICD Codes: R41.82 - Altered mental status, unspecified SNOMED: 621759736, 41954027 Qualifiers: Qualified Codes: R41.82 - Altered mental status, unspecified (6) Cardiac arrest ICD Codes: I46.9 - Cardiac arrest, cause unspecified SNOMED: 739676300 (7) Respiratory distress ICD Codes: R06.03 - Acute respiratory distress SNOMED: 587409928 Assessment/Plan: s/p 2 units prbc in this admission positive stool ob x1 ppi iv BID reglan monitor H&H transfuse to keep HGB above 7.5 extubated now failed swallow eval, pending repeat for today will need NGT placement and feeding if fails again D/W the nurse will fu Subjective ROS Limited/Unobtainable: No Allergies: Coded Allergies: No Known Allergies (Unverified , 12/11/19) Objective Last 24 Hour Vital Signs Date Time Temp Pulse Resp B/P (MAP) Pulse Ox O2 Delivery O2 Flow Rate FiO2 12/17/19 04:00 Nasal Cannula 4.0 Nasal Cannula 4.0 12/17/19 04:00 87 12/17/19 04:00 98.8 89 24 113/76 (88) 98 12/17/19 00:00 83 12/17/19 00:00 Nasal Cannula 4.0 Nasal Cannula 4.0 12/17/19 00:00 98.2 81 24 96/52 (67) 98 12/16/19 22:24 99.8 12/16/19 20:00 Nasal Cannula 4.0 Nasal Cannula 4.0 12/16/19 20:00 89 12/16/19 20:00 100.0 89 24 108/71 (83) 98 12/16/19 16:00 Nasal Cannula 4.0 Nasal Cannula 4.0 12/16/19 16:00 98.2 97 26 118/78 (91) 96 12/16/19 15:22 97 12/16/19 12:00 98.8 101 25 120/78 (92) 95 12/16/19 12:00 Nasal Cannula 4.0 Nasal Cannula 4.0 12/16/19 11:21 100 Intake and Output 12/16/19 12/17/19 19:00 07:00 Intake Total 1165.0 ml 1037.5 ml Output Total 600 ml 500 ml Balance 565.0 ml 537.5 ml Intake IV Total 1165.0 ml 1037.5 ml Output Urine Total 600 ml 500 ml # Bowel Movements 2 4 Laboratory Tests 12/17/19 04:25: White Blood Count 15.8H, Red Blood Count 2.64L, Hemoglobin 8.1L, Hematocrit 22.9L, Mean Corpuscular Volume 87, Mean Corpuscular Hemoglobin 30.7, Mean Corpuscular Hemoglobin Concent 35.3, Red Cell Distribution Width 12.9, Platelet Count 129L, Mean Platelet Volume 8.2, Neutrophils (%) (Auto) 75.9H, Lymphocytes (%) (Auto) 15.8L, Monocytes (%) (Auto) 5.2, Eosinophils (%) (Auto) 2.6, Basophils (%) (Auto) 0.6, Sodium Level 153H, Potassium Level 2.8L, Chloride Level 120H, Carbon Dioxide Level 22, Anion Gap 12, Blood Urea Nitrogen 18, Creatinine 0.8, Estimat Glomerular Filtration Rate > 60, Glucose Level 188H, Calcium Level 7.7L, Phosphorus Level 3.3, Magnesium Level 2.1, Total Bilirubin 0.4, Direct Bilirubin < 0.1, Aspartate Amino Transf (AST/SGOT) 26, Alanine Aminotransferase (ALT/SGPT) 60, Alkaline Phosphatase 94, Total Protein 4.7L, Albumin 1.1L Height (Feet): 5 Height (Inches): 5.00 Weight (Pounds): 155 General Appearance: lethargic EENT: PERRL/EOMI Neck: supple Cardiovascular: normal rate Respiratory/Chest: decreased breath sounds Abdomen: non tender, soft, hypoactive bowel sounds Extremities: non-tender Maykel Stephen MD December 17, 2019 09:28
--- NOTE | 2019-12-17 09:30 | Cardiac Electrophysiology PN ---
Assessment/Plan Assessment/Plan 1. S/P Septic shock. Off pressors. EF 60%. EKG shows sinus tachycardia with no acute ST-T wave abnormalities. Already on broad-spectrum IV antibiotic 2. S/P Respiratory failure, Extubated 3. Hypotension. DC Midodrine 4. Coffee-ground emesis. S/P 2 units of PRBC 5. S/P Diabetic ketoacidosis 6. Persistent hypokalemia. Replaced with 40 meq KCL ivpb x3 and recheck in am. 7. Failed swallow eval MICAELA RN and Dr Ventura Subjective Subjective Transferred out of ICU S/P 2 units of PRBC in sinus tach. Covid test from results pending. Failed swallow eval. K still 2.8 despite 60 meq replacement yesterday Objective Last 24 Hour Vital Signs Date Time Temp Pulse Resp B/P (MAP) Pulse Ox O2 Delivery O2 Flow Rate FiO2 12/17/19 04:00 Nasal Cannula 4.0 Nasal Cannula 4.0 12/17/19 04:00 87 12/17/19 04:00 98.8 89 24 113/76 (88) 98 12/17/19 00:00 83 12/17/19 00:00 Nasal Cannula 4.0 Nasal Cannula 4.0 12/17/19 00:00 98.2 81 24 96/52 (67) 98 12/16/19 22:24 99.8 12/16/19 20:00 Nasal Cannula 4.0 Nasal Cannula 4.0 12/16/19 20:00 89 12/16/19 20:00 100.0 89 24 108/71 (83) 98 12/16/19 16:00 Nasal Cannula 4.0 Nasal Cannula 4.0 12/16/19 16:00 98.2 97 26 118/78 (91) 96 12/16/19 15:22 97 12/16/19 12:00 98.8 101 25 120/78 (92) 95 12/16/19 12:00 Nasal Cannula 4.0 Nasal Cannula 4.0 12/16/19 11:21 100 Intake and Output 12/16/19 12/17/19 19:00 07:00 Intake Total 1165.0 ml 1037.5 ml Output Total 600 ml 500 ml Balance 565.0 ml 537.5 ml Intake IV Total 1165.0 ml 1037.5 ml Output Urine Total 600 ml 500 ml # Bowel Movements 2 4 Laboratory Tests Test 12/17/19 04:25 White Blood Count 15.8 K/UL (4.8-10.8) H Red Blood Count 2.64 M/UL (4.20-5.40) L Hemoglobin 8.1 G/DL (12.0-16.0) L Hematocrit 22.9 % (37.0-47.0) L Mean Corpuscular Volume 87 FL (80-99) Mean Corpuscular Hemoglobin 30.7 PG (27.0-31.0) Mean Corpuscular Hemoglobin Concent 35.3 G/DL (32.0-36.0) Red Cell Distribution Width 12.9 % (11.6-14.8) Platelet Count 129 K/UL (150-450) L Mean Platelet Volume 8.2 FL (6.5-10.1) Neutrophils (%) (Auto) 75.9 % (45.0-75.0) H Lymphocytes (%) (Auto) 15.8 % (20.0-45.0) L Monocytes (%) (Auto) 5.2 % (1.0-10.0) Eosinophils (%) (Auto) 2.6 % (0.0-3.0) Basophils (%) (Auto) 0.6 % (0.0-2.0) Sodium Level 153 MMOL/L (136-145) H Potassium Level 2.8 MMOL/L (3.5-5.1) L Chloride Level 120 MMOL/L (98-107) H Carbon Dioxide Level 22 MMOL/L (21-32) Anion Gap 12 mmol/L (5-15) Blood Urea Nitrogen 18 mg/dL (7-18) Creatinine 0.8 MG/DL (0.55-1.30) Estimat Glomerular Filtration Rate > 60 mL/min (>60) Glucose Level 188 MG/DL (74-106) H Calcium Level 7.7 MG/DL (8.5-10.1) L Phosphorus Level 3.3 MG/DL (2.5-4.9) Magnesium Level 2.1 MG/DL (1.8-2.4) Total Bilirubin 0.4 MG/DL (0.2-1.0) Direct Bilirubin < 0.1 MG/DL (0.0-0.3) Aspartate Amino Transf (AST/SGOT) 26 U/L (15-37) Alanine Aminotransferase (ALT/SGPT) 60 U/L (12-78) Alkaline Phosphatase 94 U/L (46-116) Total Protein 4.7 G/DL (6.4-8.2) L Albumin 1.1 G/DL (3.4-5.0) L Objective HEAD AND NECK: No JVD LUNGS: Coarse rhonchi. CARDIOVASCULAR: Irregular S1-S2 and tachycardic. ABDOMEN: Soft. EXTREMITIES: No pitting edema. Gerardo Dyer MD December 17, 2019 09:29
[2019-12-17] MEDS: D5W IVPB SCH ×2 (09:41→16:34)
[2019-12-17] MEDS: POTASSIUM CHLORIDE IVPB SCH ×2 (09:41→16:34)
[2019-12-17] MEDS: Levemir Flexpen SUBQ SCH ×2 (09:56→18:49)
[2019-12-17] MEDS: Pantoprazole Inj IVP SCH ×2 (09:57→21:47)
[2019-12-17] MEDS ORDERED: D5W IVPB SCH (10:00)
[2019-12-17] MEDS ORDERED: POTASSIUM CHLORIDE IVPB SCH (10:00)
--- NOTE | 2019-12-17 10:33 | Diagnostic Imaging Report ---
Procedure: XRAY Chest 1v Reason for study: Reason For Exam: COUGH Comparison films: 12/13/2019. FINDINGS: Endotracheal tube and NG tube have been removed. Vascularity is normal. Bilateral infiltrates not significantly changed given difference in technique. Cardiac and mediastinal silhouette are within normal limits. There may be a small left effusion. The bony thorax appear unremarkable. IMPRESSION: Endotracheal tube and NG tube removed. Otherwise no significant change.
--- NOTE | 2019-12-17 11:35 | Pulmonology Progress Note ---
Subjective ROS Limited/Unobtainable: No Interval Events: Extubated 12/13/19 Constitutional: Reports: no symptoms HEENT: Repors: no symptoms Respiratory: Reports: no symptoms Cardiovascular: Reports: no symptoms Gastrointestinal/Abdominal: Reports: no symptoms Genitourinary: Reports: no symptoms Allergies: Coded Allergies: No Known Allergies (Unverified , 12/11/19) All Systems: reviewed and negative except above Objective Last 24 Hour Vital Signs Date Time Temp Pulse Resp B/P (MAP) Pulse Ox O2 Delivery O2 Flow Rate FiO2 12/17/19 08:00 Nasal Cannula 4.0 12/17/19 08:00 98.8 84 26 108/68 (81) 98 12/17/19 07:54 85 12/17/19 04:00 Nasal Cannula 4.0 Nasal Cannula 4.0 12/17/19 04:00 87 12/17/19 04:00 98.8 89 24 113/76 (88) 98 12/17/19 00:00 83 12/17/19 00:00 Nasal Cannula 4.0 Nasal Cannula 4.0 12/17/19 00:00 98.2 81 24 96/52 (67) 98 12/16/19 22:24 99.8 12/16/19 20:00 Nasal Cannula 4.0 Nasal Cannula 4.0 12/16/19 20:00 89 12/16/19 20:00 100.0 89 24 108/71 (83) 98 12/16/19 16:00 Nasal Cannula 4.0 Nasal Cannula 4.0 12/16/19 16:00 98.2 97 26 118/78 (91) 96 12/16/19 15:22 97 12/16/19 12:00 98.8 101 25 120/78 (92) 95 12/16/19 12:00 Nasal Cannula 4.0 Nasal Cannula 4.0 Intake and Output 12/16/19 12/17/19 19:00 07:00 Intake Total 1165.0 ml 1037.5 ml Output Total 600 ml 500 ml Balance 565.0 ml 537.5 ml Intake IV Total 1165.0 ml 1037.5 ml Output Urine Total 600 ml 500 ml # Bowel Movements 2 4 General Appearance: no acute distress HEENT: normocephalic Respiratory: chest wall non-tender, lungs clear Cardiovascular: normal peripheral pulses, normal rate Abdomen: normal bowel sounds Laboratory Tests 12/17/19 04:25: White Blood Count 15.8H, Red Blood Count 2.64L, Hemoglobin 8.1L, Hematocrit 22.9L, Mean Corpuscular Volume 87, Mean Corpuscular Hemoglobin 30.7, Mean Corpuscular Hemoglobin Concent 35.3, Red Cell Distribution Width 12.9, Platelet Count 129L, Mean Platelet Volume 8.2, Neutrophils (%) (Auto) 75.9H, Lymphocytes (%) (Auto) 15.8L, Monocytes (%) (Auto) 5.2, Eosinophils (%) (Auto) 2.6, Basophils (%) (Auto) 0.6, Sodium Level 153H, Potassium Level 2.8L, Chloride Level 120H, Carbon Dioxide Level 22, Anion Gap 12, Blood Urea Nitrogen 18, Creatinine 0.8, Estimat Glomerular Filtration Rate > 60, Glucose Level 188H, Calcium Level 7.7L, Phosphorus Level 3.3, Magnesium Level 2.1, Total Bilirubin 0.4, Direct Bilirubin < 0.1, Aspartate Amino Transf (AST/SGOT) 26, Alanine Aminotransferase (ALT/SGPT) 60, Alkaline Phosphatase 94, Total Protein 4.7L, Albumin 1.1L Current Medications Medications (Trade) Dose Ordered Sig/Esequiel Route PRN Reason Start Time Stop Time Status Last Admin Dose Admin Acetaminophen (Tylenol) 650 mg Q4H PRN GT Mild Pain (Pain Scale 1-3) 12/15/19 20:00 01/10/20 19:59 Acetaminophen (Tylenol) 650 mg Q4H PRN RECTAL Mild Pain (Pain Scale 1-3) 12/15/19 20:00 01/10/20 19:59 12/16/19 21:54 Chlorhexidine Gluconate (Bijal-Hex 2%) 1 applic DAILY@2000 TOPIC 12/15/19 20:00 03/11/20 19:59 12/16/19 21:30 Dextrose 1,000 ml @ 75 mls/hr [id number] IV 12/16/19 19:45 01/13/20 08:59 12/16/19 21:59 Dextrose (Dextrose 50%) 25 ml Q30M PRN IV Hypoglycemia 12/15/19 20:00 03/12/20 01:59 Dextrose (Dextrose 50%) 50 ml Q30M PRN IV Hypoglycemia 12/15/19 20:00 03/12/20 01:59 Heparin Sodium/ Sodium Chloride (Heparin 1000 units/500ml Premix) 1,000 unit ONCE PRN IV PICC PLACEMENT 12/16/19 08:00 12/17/19 23:59 Hydroxychloroquine Sulfate (Plaquenil) 200 mg Q12HR ORAL 12/18/19 21:00 12/22/19 09:01 UNV Hydroxychloroquine Sulfate (Plaquenil) 400 mg Q12HR ORAL 12/17/19 11:00 12/17/19 21:01 UNV Insulin Aspart (NovoLOG) Q4HR SUBQ 12/15/19 21:00 03/12/20 04:59 12/17/19 09:57 Insulin Detemir (Levemir) 10 units BID SUBQ 12/16/19 09:00 03/12/20 08:59 12/17/19 09:56 Lidocaine HCl (Xylocaine 1% 30ml) 30 ml ONCE PRN INJ PICC PLACEMENT 12/16/19 08:00 12/17/19 23:59 Metoclopramide HCl (Reglan) 5 mg EVERY 8 HOURS IVP 12/15/19 22:00 01/11/20 13:59 12/17/19 05:13 Miscellaneous Medication (Plaquenil Fact Sheet) 1 ea ONCE ONCE MISC 12/17/19 11:00 12/17/19 11:01 UNV Ondansetron HCl (Zofran) 4 mg Q6H PRN IVP Nausea & Vomiting 12/15/19 20:00 01/10/20 19:59 Pantoprazole (Protonix) 40 mg EVERY 12 HOURS IVP 12/15/19 21:00 01/11/20 08:59 12/17/19 09:57 Piperacillin Sod/ Tazobactam Sod 3.375 gm/Sodium Chloride 110 ml @ 27.5 mls/hr EVERY 8 HOURS IVPB 12/15/19 22:00 12/17/19 13:59 12/17/19 05:13 Potassium Chloride 60 meq/ Dextrose 580 ml @ 95 mls/hr Q6H IVPB 12/17/19 10:00 12/17/19 21:59 12/17/19 09:41 Assessment/Plan Assessment/Plan IMPRESSION: 1. DKA. Resolved 2. Upper GI bleed. 3. Respiratory failure. Now extubated 4. Lactic acidosis. DISCUSSION: Continue antibiotics. GI following for upper gastrointestinal bleeding, Not on pressors. I will continue oxygen, sedation, Protonix, DVT prophylaxis. I will follow carefully. Saturating 100% on 4L/min O2 Seen in [facility] Await swallow eval Begin eneteral feedings if swallow eval passed Robin Schaffer M.D. Robin Schaffer MD December 17, 2019 11:35
[2019-12-17 12:00] VITALS: BP 105/61
[2019-12-17] MEDS ORDERED: Hydroxychloroquine Fact Sheet MISC SCH (13:05)
--- NOTE | 2019-12-17 13:17 | Surgery Progress Note ---
Surgery Progress Note Subjective Additional Comments cxr reviewed exam stable Endotracheal tube and NG tube have been removed. Vascularity is normal. Bilateral infiltrates not significantly changed given difference in technique. Cardiac and mediastinal silhouette are within normal limits. There may be a small left effusion. Objective Last 24 Hour Vital Signs Date Time Temp Pulse Resp B/P (MAP) Pulse Ox O2 Delivery O2 Flow Rate FiO2 12/17/19 08:00 Nasal Cannula 4.0 12/17/19 08:00 98.8 84 26 108/68 (81) 98 12/17/19 07:54 85 12/17/19 04:00 Nasal Cannula 4.0 Nasal Cannula 4.0 12/17/19 04:00 87 12/17/19 04:00 98.8 89 24 113/76 (88) 98 12/17/19 00:00 83 12/17/19 00:00 Nasal Cannula 4.0 Nasal Cannula 4.0 12/17/19 00:00 98.2 81 24 96/52 (67) 98 12/16/19 22:24 99.8 12/16/19 20:00 Nasal Cannula 4.0 Nasal Cannula 4.0 12/16/19 20:00 89 12/16/19 20:00 100.0 89 24 108/71 (83) 98 12/16/19 16:00 Nasal Cannula 4.0 Nasal Cannula 4.0 12/16/19 16:00 98.2 97 26 118/78 (91) 96 12/16/19 15:22 97 I&O Intake and Output 12/16/19 12/17/19 19:00 07:00 Intake Total 1165.0 ml 1037.5 ml Output Total 600 ml 500 ml Balance 565.0 ml 537.5 ml Intake IV Total 1165.0 ml 1037.5 ml Output Urine Total 600 ml 500 ml # Bowel Movements 2 4 Dressing: other Wound: other Drains: other Cardiovascular: RSR Respiratory: decreased breath sounds Abdomen: soft, non-tender, present bowel sounds Extremities: no cyanosis Laboratory Tests Test 12/17/19 04:25 White Blood Count 15.8 K/UL (4.8-10.8) H Red Blood Count 2.64 M/UL (4.20-5.40) L Hemoglobin 8.1 G/DL (12.0-16.0) L Hematocrit 22.9 % (37.0-47.0) L Mean Corpuscular Volume 87 FL (80-99) Mean Corpuscular Hemoglobin 30.7 PG (27.0-31.0) Mean Corpuscular Hemoglobin Concent 35.3 G/DL (32.0-36.0) Red Cell Distribution Width 12.9 % (11.6-14.8) Platelet Count 129 K/UL (150-450) L Mean Platelet Volume 8.2 FL (6.5-10.1) Neutrophils (%) (Auto) 75.9 % (45.0-75.0) H Lymphocytes (%) (Auto) 15.8 % (20.0-45.0) L Monocytes (%) (Auto) 5.2 % (1.0-10.0) Eosinophils (%) (Auto) 2.6 % (0.0-3.0) Basophils (%) (Auto) 0.6 % (0.0-2.0) Sodium Level 153 MMOL/L (136-145) H Potassium Level 2.8 MMOL/L (3.5-5.1) L Chloride Level 120 MMOL/L (98-107) H Carbon Dioxide Level 22 MMOL/L (21-32) Anion Gap 12 mmol/L (5-15) Blood Urea Nitrogen 18 mg/dL (7-18) Creatinine 0.8 MG/DL (0.55-1.30) Estimat Glomerular Filtration Rate > 60 mL/min (>60) Glucose Level 188 MG/DL (74-106) H Calcium Level 7.7 MG/DL (8.5-10.1) L Phosphorus Level 3.3 MG/DL (2.5-4.9) Magnesium Level 2.1 MG/DL (1.8-2.4) Total Bilirubin 0.4 MG/DL (0.2-1.0) Direct Bilirubin < 0.1 MG/DL (0.0-0.3) Aspartate Amino Transf (AST/SGOT) 26 U/L (15-37) Alanine Aminotransferase (ALT/SGPT) 60 U/L (12-78) Alkaline Phosphatase 94 U/L (46-116) Total Protein 4.7 G/DL (6.4-8.2) L Albumin 1.1 G/DL (3.4-5.0) L Plan Problems: (1) Cardiac arrest (2) DKA (diabetic ketoacidoses) (3) Respiratory distress (4) Altered mental status (5) Coffee ground emesis Assessment & Plan: Coffee-ground emesis concerning for GI bleed. Transfuse PRBC now stable. No acute active bleeding noted. Discussed with GI. Will follow with recommendations hold on acute surgical intervention (6) High serum creatine (7) High blood urea nitrogen (BUN) (8) Abnormal TSH (9) DEANDRA (acute kidney injury) (10) Hypotension (11) Electrolyte imbalance (12) Hyperkalemia (13) Deep tissue injury Assessment & Plan: Patient identified to have a sacral deep tissue injury. No areas of open skin. No signs of acute active infection. Patient critically ill intensive care unit on support slowly making a recovery. Will make all times prevention as well as initiate care plan for healing. Turn every 2 hours. Skin protectant OPTi foam dressing. Offload heels with pillows. Will monitor closely. Great nursing care being provided. Nutritional optimization DAILY ESTIMATED NEEDS: Needs based on DM, pulmonary 65.5kg 25-30 kcals/kg 2233-7654 total kcals 1-1.5 g protein/kg 66-98 g total protein 25-30 mL/kg 1661-4112 total fluid mLs NUTRITION DIAGNOSIS: Swallowing difficulty r/t Cardiopulmonary arrest as evidenced by pt now orally intubated, ICU, adm w/ DKA, now on pressor support x3- now s/p extubation, pending PHOTOCOMPOSITION KEYBOARD OPERATOR eval. CURRENT TF: NPO PO DIET RECOMMENDATIONS: CCHO MED DIET/ TEXTURE PER PHOTOCOMPOSITION KEYBOARD OPERATOR ADDITIONAL RECOMMENDATIONS: 1) Diet recs as above, PHOTOCOMPOSITION KEYBOARD OPERATOR eval pending 2) Maintain calibrated bed scale wts 3) Replete lytes as needed 4) Add Glucerna w/ poor po intake Enrrique Martins December 17, 2019 13:17
--- NOTE | 2019-12-17 13:47 | Nephrology Progress Note ---
Assessment/Plan Problem List: (1) DEANDRA (acute kidney injury) Assessment: Resolved (2) Hypotension (3) Cardiac arrest (4) DKA (diabetic ketoacidoses) (5) Respiratory distress (6) Coffee ground emesis (7) Electrolyte imbalance Assessment Acute renal failure which probably is superimposed on chronic kidney disease History of diabetes mellitus, most likely diabetic nephropathy. Presents with diabetic ketoacidosis Acute respiratory failure requiring intubation and mechanical ventilation Aspiration pneumonia, upper GI bleed Proteinuria and severe hypoalbuminemia should rule out nephrotic range proteinuria Anemia Electrolyte imbalances Plan Patient is now extubated Will replace potassium, magnesium, and phosphorus as needed 2 units of packed RBCs was transfused Hydrate as needed Monitor renal parameters Avoid nephrotoxic's Anemia work-up Urine studies Keep blood sugar and blood pressure in check Per consultants Discussed with RN Subjective ROS Limited/Unobtainable: No Constitutional: Reports: malaise, weakness Objective Objective Last 24 Hour Vital Signs Date Time Temp Pulse Resp B/P (MAP) Pulse Ox O2 Delivery O2 Flow Rate FiO2 12/17/19 08:00 Nasal Cannula 4.0 12/17/19 08:00 98.8 84 26 108/68 (81) 98 12/17/19 07:54 85 12/17/19 04:00 Nasal Cannula 4.0 Nasal Cannula 4.0 12/17/19 04:00 87 12/17/19 04:00 98.8 89 24 113/76 (88) 98 12/17/19 00:00 83 12/17/19 00:00 Nasal Cannula 4.0 Nasal Cannula 4.0 12/17/19 00:00 98.2 81 24 96/52 (67) 98 12/16/19 22:24 99.8 12/16/19 20:00 Nasal Cannula 4.0 Nasal Cannula 4.0 12/16/19 20:00 89 12/16/19 20:00 100.0 89 24 108/71 (83) 98 12/16/19 16:00 Nasal Cannula 4.0 Nasal Cannula 4.0 12/16/19 16:00 98.2 97 26 118/78 (91) 96 12/16/19 15:22 97 Intake and Output 12/16/19 12/17/19 19:00 07:00 Intake Total 1165.0 ml 1037.5 ml Output Total 600 ml 500 ml Balance 565.0 ml 537.5 ml Intake IV Total 1165.0 ml 1037.5 ml Output Urine Total 600 ml 500 ml # Bowel Movements 2 4 Laboratory Tests 12/17/19 04:25: White Blood Count 15.8H, Red Blood Count 2.64L, Hemoglobin 8.1L, Hematocrit 22.9L, Mean Corpuscular Volume 87, Mean Corpuscular Hemoglobin 30.7, Mean Corpuscular Hemoglobin Concent 35.3, Red Cell Distribution Width 12.9, Platelet Count 129L, Mean Platelet Volume 8.2, Neutrophils (%) (Auto) 75.9H, Lymphocytes (%) (Auto) 15.8L, Monocytes (%) (Auto) 5.2, Eosinophils (%) (Auto) 2.6, Basophils (%) (Auto) 0.6, Sodium Level 153H, Potassium Level 2.8L, Chloride Level 120H, Carbon Dioxide Level 22, Anion Gap 12, Blood Urea Nitrogen 18, Creatinine 0.8, Estimat Glomerular Filtration Rate > 60, Glucose Level 188H, Calcium Level 7.7L, Phosphorus Level 3.3, Magnesium Level 2.1, Total Bilirubin 0.4, Direct Bilirubin < 0.1, Aspartate Amino Transf (AST/SGOT) 26, Alanine Aminotransferase (ALT/SGPT) 60, Alkaline Phosphatase 94, Total Protein 4.7L, Albumin 1.1L Height (Feet): 5 Height (Inches): 5.00 Weight (Pounds): 155 Don Ventura MD December 17, 2019 13:47
[2019-12-17] MEDS ORDERED: Spironolactone 25mg tab ORAL SCH (14:00)
[2019-12-17] MEDS ORDERED: Heparin1,000 units/500ml Premix(Conc:2 units/ml) IV PRN (14:15)
[2019-12-17] MEDS ORDERED: Lidocaine 1% Plain 30 ml INJ PRN (14:15)
--- NOTE | 2019-12-17 15:34 | Pre-Procedure Note/Attestation ---
Pre-Procedure Note/Attestation Complete Prior to Procedure Planned Procedure: not applicable Procedure Narrative: PICC line Indications for Procedure Pre-Operative Diagnosis: need iv access Attestation consent for procedure obtained by primary team. this was confirmed prior to the procedure,. Jeff Stock M.D. December 17, 2019 15:34
[2019-12-17 16:00] VITALS: BP 145/79
--- NOTE | 2019-12-17 16:11 | Diagnostic Imaging Report ---
Indications: Needs long-term IV access Technique: Procedure performed at bedside. Procedural timeout performed. Ultrasound confirms patent compressible left basilic vein. Total sterile technique, including sterile probe cover and sterile gel, sterile gloves, hand hygiene, hat, mask,, sterile gown, large sterile drape, and preparation with 2% chlorhexidine utilized. Local anesthesia with 1% lidocaine. Under real-time ultrasound guidance, puncture left basilic vein using 21-gauge needle, passage 0.018 guidewire, exchange for 4.5French peel-away sheath. 4 Nigerien dual-lumen power PICC cut to 45 cm. It was inserted through the peel-away sheath. Peel-away sheath and guidewire removed. Catheter fixed to the skin. Both catheter ports aspirated and flushed. Patient tolerated procedure well, without immediate complication. Followup chest x-ray obtained, documents catheter tip position at the right atrium. The catheter was subsequently retracted and more peripherally position at the cavoatrial junction/high right atrium. Bairon patchy bilateral airspace disease is similar to chest radiograph from earlier today. There is no evidence of pneumothorax. Impression: Successful bedside placement of PICC under sonographic guidance, as described above.
--- NOTE | 2019-12-17 17:15 | Consultation ---
DATE OF CONSULTATION: 12/17/2019 INFECTIOUS DISEASES CONSULTATION CONSULTING PHYSICIAN: Eden Salvador MD. REFERRING PHYSICIAN: Ubaldo Pinzon MD. REASON FOR CONSULTATION: Pneumonia. HISTORY OF PRESENTING ILLNESS: This is a 58-year-old lady with history of diabetes and hypertension, who came in with respiratory distress and cardiopulmonary arrest. She was also found to have uncontrolled diabetes with sugar in the 1000. She was found to be in DKA. An Infectious Diseases consultation has been obtained for antibiotics. PAST MEDICAL HISTORY: 1. History of diabetes. 2. History of hypertension. SOCIAL HISTORY: Unknown. FAMILY HISTORY: Unknown. REVIEW OF SYSTEMS: Unable to obtain currently. MEDICATIONS: As an inpatient, she is on potassium, insulin, lidocaine, subcu heparin, Zosyn, Raglan, Protonix, Tylenol, chlorhexidine gluconate, and Zofran. ALLERGIES: No known drug allergies. PHYSICAL EXAMINATION: VITAL SIGNS: Temperature of 98.8, T-max of 100.4, pulse of 84, respiratory rate 26, blood pressure 108/68, O2 saturation of 98% on 4 L oxygen. GENERAL: Examination deferred due to possibility of COVID-19. LABORATORY AND DIAGNOSTIC DATA: White count 15.8, hemoglobin 8.1, hematocrit 22.9, MCV 87, platelet count of 129,000. Sodium 153, potassium 2.8, chloride 120, bicarb 22, BUN 18, creatinine 0.8, glucose 188, calcium 7.7. AST 26, ALT 16, alkaline phosphatase 94, total protein 4.7, albumin 1.1. UA is showing 0-2 white cells. Blood cultures are negative. Chest x-ray is showing bilateral infiltrates. ASSESSMENT: This is a 58-year-old lady with history of diabetes and hypertension, who comes in with elevated sugar of more than 1000 and found to be in: 1. Diabetic ketoacidosis with glucose of 1472. 2. Renal failure is improving. 3. Leukocytosis is increasing. 4. Pneumonia. Would like to rule out COVID-19 as a possibility. PLAN: 1. Continue Zosyn. 2. We will start the patient on hydroxychloroquine. 3. We will follow up COVID-19 test result. 4. We will follow the patient clinically. I would like to thank, Dr. Pinzon, for this consultation. Eden Salvador M.D. DR: Aba JOB#: [id number] CC: Ubaldo Pinzon MD; Fax#: [phone]
[2019-12-17] MEDS: Piperacillin/Tazobactam 3.375 GM in D5W 110 ML IVPB SCH (18:37)
[2019-12-17 20:00] VITALS: BP 110/69
[2019-12-17] MEDS: Dyna-Hex 2% Top Sol 2oz TOPIC SCH (20:50)
[2019-12-18] VITALS: BP 108/65
[2019-12-18] MEDS: NovoLOG Insulin Flexpen SUBQ SCH ×6 (01:00→21:00)
[2019-12-18] MEDS: Piperacillin/Tazobactam 3.375 GM in D5W 110 ML IVPB SCH ×3 (01:00→17:36)
[2019-12-18 04:00] VITALS: BP 117/70
[2019-12-18 06:01] LABS: BASOPHILS % (AUTO) 0.6 % (0.0-2.0); EOSINOPHILS % (AUTO) 2.8 % (0.0-3.0); HEMATOCRIT 24.2 % (37.0-47.0); HEMOGLOBIN 8.5 G/DL (12.0-16.0); LYMPHOCYTES % (AUTO) 16.7 % (20.0-45.0); MEAN CORPUSCULAR VOLUME 88 FL (80-99); MONOCYTES % (AUTO) 3.9 % (1.0-10.0); PLATELET COUNT 153 K/UL (150-450); RED BLOOD COUNT 2.76 M/UL (4.20-5.40); RED CELL DISTRIBUTION WIDTH 12.6 % (11.6-14.8); WHITE BLOOD COUNT 16.9 K/UL (4.8-10.8)
[2019-12-18 06:40] LABS: ALANINE AMINOTRANSFERASE 37 U/L (12-78); ALBUMIN 1.2 G/DL (3.4-5.0); ALBUMIN/GLOBULIN RATIO 0.3 (1.0-2.7); ALKALINE PHOSPHATASE 92 U/L (46-116); ANION GAP 10 mmol/L (5-15); ASPARTATE AMINO TRANSFERASE 9 U/L (15-37); BILIRUBIN,TOTAL 0.3 MG/DL (0.2-1.0); BLOOD UREA NITROGEN 13 mg/dL (7-18); CALCIUM 7.7 MG/DL (8.5-10.1); CARBON DIOXIDE 23 MMOL/L (21-32); CHLORIDE 115 MMOL/L (98-107); CREATININE 0.8 MG/DL (0.55-1.30); GAMMA GLUTAMYL TRANSPEPTIDASE 15 U/L (5-85); PHOSPHORUS 3.5 MG/DL (2.5-4.9); POTASSIUM 3.1 MMOL/L (3.5-5.1); SODIUM 148 MMOL/L (136-145)
[2019-12-18] MEDS: Metoclopramide 10mg/2ml Inj IVP SCH ×3 (06:55→21:10)
[2019-12-18 08:00] VITALS: BP 137/71
[2019-12-18] MEDS ORDERED: Spironolactone 25mg tab ORAL SCH (09:00)
[2019-12-18] MEDS: Pantoprazole Inj IVP SCH ×2 (09:43→20:48)
[2019-12-18] MEDS: Levemir Flexpen SUBQ SCH ×2 (09:44→18:16)
[2019-12-18] MEDS ORDERED: Tubing IV Secondary IV ONE ×3 (10:17→14:11)
[2019-12-18] MEDS ORDERED: NS 275ml ONE ×6 (10:17→14:12)
--- NOTE | 2019-12-18 10:44 | Surgery Progress Note ---
Surgery Progress Note Subjective Additional Comments no acute events labs reviewed exam stable comfortable Objective Last 24 Hour Vital Signs Date Time Temp Pulse Resp B/P (MAP) Pulse Ox O2 Delivery O2 Flow Rate FiO2 12/18/19 08:00 Nasal Cannula 4.0 12/18/19 08:00 101 12/18/19 08:00 98.3 94 17 137/71 (93) 98 12/18/19 04:00 97 12/18/19 04:00 Nasal Cannula 4.0 12/18/19 04:00 98.9 83 20 117/70 (86) 97 12/18/19 00:00 98.8 97 24 108/65 (79) 98 12/18/19 00:00 Nasal Cannula 4.0 12/18/19 00:00 92 12/17/19 20:00 Nasal Cannula 4.0 12/17/19 20:00 93 12/17/19 20:00 98.2 93 24 110/69 (83) 98 12/17/19 16:00 Nasal Cannula 4.0 12/17/19 16:00 99.5 91 26 145/79 (101) 96 12/17/19 15:25 95 12/17/19 12:00 Nasal Cannula 4.0 12/17/19 12:00 98.5 89 24 105/61 (76) 95 12/17/19 11:37 93 I&O Intake and Output 12/17/19 12/18/19 19:00 07:00 Intake Total 1386.25 ml 990.0 ml Output Total 600 ml 1000 ml Balance 786.25 ml -10.0 ml Intake IV Total 1386.25 ml 990.0 ml Output Urine Total 600 ml 1000 ml # Bowel Movements 5 8 Dressing: other Wound: other Drains: other Cardiovascular: RSR Respiratory: decreased breath sounds Abdomen: non-tender, present bowel sounds Extremities: no cyanosis Laboratory Tests Test 12/18/19 04:00 White Blood Count 16.9 K/UL (4.8-10.8) H Red Blood Count 2.76 M/UL (4.20-5.40) L Hemoglobin 8.5 G/DL (12.0-16.0) L Hematocrit 24.2 % (37.0-47.0) L Mean Corpuscular Volume 88 FL (80-99) Mean Corpuscular Hemoglobin 30.9 PG (27.0-31.0) Mean Corpuscular Hemoglobin Concent 35.2 G/DL (32.0-36.0) Red Cell Distribution Width 12.6 % (11.6-14.8) Platelet Count 153 K/UL (150-450) Mean Platelet Volume 8.2 FL (6.5-10.1) Neutrophils (%) (Auto) 76.0 % (45.0-75.0) H Lymphocytes (%) (Auto) 16.7 % (20.0-45.0) L Monocytes (%) (Auto) 3.9 % (1.0-10.0) Eosinophils (%) (Auto) 2.8 % (0.0-3.0) Basophils (%) (Auto) 0.6 % (0.0-2.0) Sodium Level 148 MMOL/L (136-145) H Potassium Level 3.1 MMOL/L (3.5-5.1) L Chloride Level 115 MMOL/L (98-107) H Carbon Dioxide Level 23 MMOL/L (21-32) Anion Gap 10 mmol/L (5-15) Blood Urea Nitrogen 13 mg/dL (7-18) Creatinine 0.8 MG/DL (0.55-1.30) Estimat Glomerular Filtration Rate > 60 mL/min (>60) Glucose Level 155 MG/DL (74-106) H Calcium Level 7.7 MG/DL (8.5-10.1) L Phosphorus Level 3.5 MG/DL (2.5-4.9) Magnesium Level 1.7 MG/DL (1.8-2.4) L Total Bilirubin 0.3 MG/DL (0.2-1.0) Gamma Glutamyl Transpeptidase 15 U/L (5-85) Aspartate Amino Transf (AST/SGOT) 9 U/L (15-37) L Alanine Aminotransferase (ALT/SGPT) 37 U/L (12-78) Alkaline Phosphatase 92 U/L (46-116) C-Reactive Protein, Quantitative 10.4 mg/dL (0.00-0.90) H Pro-B-Type Natriuretic Peptide 768 pg/mL (0-125) H Total Protein 5.1 G/DL (6.4-8.2) L Albumin 1.2 G/DL (3.4-5.0) L Globulin 3.9 g/dL Albumin/Globulin Ratio 0.3 (1.0-2.7) L Plan Problems: (1) Cardiac arrest (2) DKA (diabetic ketoacidoses) (3) Respiratory distress (4) Altered mental status (5) Coffee ground emesis Assessment & Plan: Coffee-ground emesis concerning for GI bleed. Transfuse PRBC now stable. No acute active bleeding noted. Discussed with GI. Will follow with recommendations hold on acute surgical intervention (6) High serum creatine (7) High blood urea nitrogen (BUN) (8) Abnormal TSH (9) DEANDRA (acute kidney injury) (10) Hypotension (11) Electrolyte imbalance (12) Hyperkalemia (13) Deep tissue injury Assessment & Plan: Patient identified to have a sacral deep tissue injury. No areas of open skin. No signs of acute active infection. Patient critically ill intensive care unit on support slowly making a recovery. Will make all times prevention as well as initiate care plan for healing. Turn every 2 hours. Skin protectant OPTi foam dressing. Offload heels with pillows. Will monitor closely. Great nursing care being provided. Nutritional optimization DAILY ESTIMATED NEEDS: Needs based on DM, pulmonary 65.5kg 25-30 kcals/kg 4713-3163 total kcals 1-1.5 g protein/kg 66-98 g total protein 25-30 mL/kg 9241-6203 total fluid mLs NUTRITION DIAGNOSIS: Swallowing difficulty r/t Cardiopulmonary arrest as evidenced by pt now orally intubated, ICU, adm w/ DKA, now on pressor support x3- now s/p extubation, pending REMEDIAL PROJECT MANAGER eval. CURRENT TF: NPO PO DIET RECOMMENDATIONS: [facility] MED DIET/ TEXTURE PER REMEDIAL PROJECT MANAGER ADDITIONAL RECOMMENDATIONS: 1) Diet recs as above, REMEDIAL PROJECT MANAGER eval pending 2) Maintain calibrated bed scale wts 3) Replete lytes as needed 4) Add Glucerna w/ poor po intake Enrrique Martins December 18, 2019 10:44
[2019-12-18] MEDS: Spironolactone 25mg tab ORAL SCH ×2 (11:00→18:17)
--- NOTE | 2019-12-18 11:25 | Pulmonology Progress Note ---
Subjective ROS Limited/Unobtainable: No Interval Events: Extubated 12/13/19 Constitutional: Reports: no symptoms HEENT: Repors: no symptoms Respiratory: Reports: no symptoms Cardiovascular: Reports: no symptoms Gastrointestinal/Abdominal: Reports: no symptoms Genitourinary: Reports: no symptoms Allergies: Coded Allergies: No Known Allergies (Unverified , 12/11/19) All Systems: reviewed and negative except above Objective Last 24 Hour Vital Signs Date Time Temp Pulse Resp B/P (MAP) Pulse Ox O2 Delivery O2 Flow Rate FiO2 12/18/19 08:00 Nasal Cannula 4.0 12/18/19 08:00 101 12/18/19 08:00 98.3 94 17 137/71 (93) 98 12/18/19 04:00 97 12/18/19 04:00 Nasal Cannula 4.0 12/18/19 04:00 98.9 83 20 117/70 (86) 97 12/18/19 00:00 98.8 97 24 108/65 (79) 98 12/18/19 00:00 Nasal Cannula 4.0 12/18/19 00:00 92 12/17/19 20:00 Nasal Cannula 4.0 12/17/19 20:00 93 12/17/19 20:00 98.2 93 24 110/69 (83) 98 12/17/19 16:00 Nasal Cannula 4.0 12/17/19 16:00 99.5 91 26 145/79 (101) 96 12/17/19 15:25 95 12/17/19 12:00 Nasal Cannula 4.0 12/17/19 12:00 98.5 89 24 105/61 (76) 95 12/17/19 11:37 93 Intake and Output 12/17/19 12/18/19 19:00 07:00 Intake Total 1386.25 ml 990.0 ml Output Total 600 ml 1000 ml Balance 786.25 ml -10.0 ml Intake IV Total 1386.25 ml 990.0 ml Output Urine Total 600 ml 1000 ml # Bowel Movements 5 8 General Appearance: no acute distress HEENT: normocephalic Respiratory: chest wall non-tender, lungs clear Cardiovascular: normal peripheral pulses, normal rate Abdomen: normal bowel sounds Laboratory Tests 12/18/19 04:00: White Blood Count 16.9H, Red Blood Count 2.76L, Hemoglobin 8.5L, Hematocrit 24.2L, Mean Corpuscular Volume 88, Mean Corpuscular Hemoglobin 30.9, Mean Corpuscular Hemoglobin Concent 35.2, Red Cell Distribution Width 12.6, Platelet Count 153, Mean Platelet Volume 8.2, Neutrophils (%) (Auto) 76.0H, Lymphocytes ( %) (Auto) 16.7L, Monocytes (%) (Auto) 3.9, Eosinophils (%) (Auto) 2.8, Basophils (%) (Auto) 0.6, Sodium Level 148H, Potassium Level 3.1L, Chloride Level 115H, Carbon Dioxide Level 23, Anion Gap 10, Blood Urea Nitrogen 13, Creatinine 0.8, Estimat Glomerular Filtration Rate > 60, Glucose Level 155H, Calcium Level 7.7L, Phosphorus Level 3.5, Magnesium Level 1.7L, Total Bilirubin 0.3, Gamma Glutamyl Transpeptidase 15, Aspartate Amino Transf (AST/SGOT) 9L, Alanine Aminotransferase (ALT/SGPT) 37, Alkaline Phosphatase 92, C-Reactive Protein, Quantitative 10.4H, Pro-B-Type Natriuretic Peptide 768H, Total Protein 5.1L, Albumin 1.2L, Globulin 3.9, Albumin/Globulin Ratio 0.3L Current Medications Medications (Trade) Dose Ordered Sig/Esequiel Route PRN Reason Start Time Stop Time Status Last Admin Dose Admin Acetaminophen (Tylenol) 650 mg Q4H PRN GT Mild Pain (Pain Scale 1-3) 12/15/19 20:00 01/10/20 19:59 Acetaminophen (Tylenol) 650 mg Q4H PRN RECTAL Mild Pain (Pain Scale 1-3) 12/15/19 20:00 01/10/20 19:59 12/16/19 21:54 Chlorhexidine Gluconate (Bijal-Hex 2%) 1 applic DAILY@2000 TOPIC 12/15/19 20:00 03/11/20 19:59 12/17/19 20:50 Dextrose 1,000 ml @ 75 mls/hr [id number] IV 12/16/19 19:45 01/13/20 08:59 12/18/19 09:16 Dextrose (Dextrose 50%) 25 ml Q30M PRN IV Hypoglycemia 12/15/19 20:00 03/12/20 01:59 Dextrose (Dextrose 50%) 50 ml Q30M PRN IV Hypoglycemia 12/15/19 20:00 03/12/20 01:59 Hydroxychloroquine Sulfate (Plaquenil) 200 mg Q12HR ORAL 12/18/19 09:00 12/21/19 21:01 12/18/19 09:43 Insulin Aspart (NovoLOG) Q4HR SUBQ 12/15/19 21:00 03/12/20 04:59 12/18/19 09:45 Insulin Detemir (Levemir) 10 units BID SUBQ 12/16/19 09:00 03/12/20 08:59 12/18/19 09:44 Magnesium Sulfate 100 ml @ 100 mls/hr Q1H IVPB 12/18/19 11:00 12/18/19 12:59 12/18/19 11:18 Metoclopramide HCl (Reglan) 5 mg EVERY 8 HOURS IVP 12/15/19 22:00 01/11/20 13:59 12/18/19 06:55 Ondansetron HCl (Zofran) 4 mg Q6H PRN IVP Nausea & Vomiting 12/15/19 20:00 01/10/20 19:59 Pantoprazole (Protonix) 40 mg EVERY 12 HOURS IVP 12/15/19 21:00 01/11/20 08:59 12/18/19 09:43 Piperacillin Sod/ Tazobactam Sod 3.375 gm/Dextrose 110 ml @ 27.5 mls/hr Q8H IVPB 12/17/19 17:00 12/22/19 23:59 12/18/19 09:16 Potassium Chloride (K-Dur) 40 meq TWICE A DAY ORAL 12/18/19 18:00 03/17/20 08:59 Spironolactone (Aldactone) 25 mg BID ORAL 12/18/19 11:00 01/17/20 10:59 Assessment/Plan Assessment/Plan IMPRESSION: 1. DKA. Resolved 2. Upper GI bleed. 3. Respiratory failure. Now extubated 4. Lactic acidosis. DISCUSSION: Continue antibiotics. GI following for upper gastrointestinal bleeding, Not on pressors. I will continue oxygen, sedation, Protonix, DVT prophylaxis. I will follow carefully. Saturating 100% on 4L/min O2 Seen in [facility] Await swallow eval Begin eneteral feedings if swallow eval passed Osorio Harris Omar Syed MD December 18, 2019 11:25
--- NOTE | 2019-12-18 11:28 | General Progress Note ---
Assessment/Plan Problem List: (1) DKA (diabetic ketoacidoses) ICD Codes: E11.10 - Type 2 diabetes mellitus with ketoacidosis without coma SNOMED: 642933670, 08500946 Qualifiers: Qualified Codes: E13.11 - Other specified diabetes mellitus with ketoacidosis with coma (2) Cardiac arrest ICD Codes: I46.9 - Cardiac arrest, cause unspecified SNOMED: 825422467 (3) Coffee ground emesis ICD Codes: K92.0 - Hematemesis SNOMED: 69556568 (4) Abnormal TSH ICD Codes: R79.89 - Other specified abnormal findings of blood chemistry SNOMED: 434477425 Assessment/Plan: continue Levemir 10 units bid continue Novolog sliding scale every 4 hours thyroid function studies suggestive of "sick euthyroid" no need for thyroid medications repeat thyroid function in 2 weeks Subjective Allergies: Coded Allergies: No Known Allergies (Unverified , 12/11/19) All Systems: reviewed and negative except above Subjective events noted glucose values are stable Item Value Date Time Bedside Blood Glucose 162 mg/dl H 12/18/19 0945 Bedside Blood Glucose 139 mg/dl H 12/18/19 0639 Bedside Blood Glucose 112 mg/dl 12/18/19 0100 Bedside Blood Glucose 160 mg/dl H 12/17/19 2225 Bedside Blood Glucose 267 mg/dl H 12/17/19 1849 Bedside Blood Glucose 255 mg/dl H 12/17/19 1348 Bedside Blood Glucose 230 mg/dl H 12/17/19 0957 Objective Last 24 Hour Vital Signs Date Time Temp Pulse Resp B/P (MAP) Pulse Ox O2 Delivery O2 Flow Rate FiO2 12/18/19 08:00 Nasal Cannula 4.0 12/18/19 08:00 101 12/18/19 08:00 98.3 94 17 137/71 (93) 98 12/18/19 04:00 97 12/18/19 04:00 Nasal Cannula 4.0 12/18/19 04:00 98.9 83 20 117/70 (86) 97 12/18/19 00:00 98.8 97 24 108/65 (79) 98 12/18/19 00:00 Nasal Cannula 4.0 12/18/19 00:00 92 12/17/19 20:00 Nasal Cannula 4.0 12/17/19 20:00 93 12/17/19 20:00 98.2 93 24 110/69 (83) 98 12/17/19 16:00 Nasal Cannula 4.0 12/17/19 16:00 99.5 91 26 145/79 (101) 96 12/17/19 15:25 95 12/17/19 12:00 Nasal Cannula 4.0 12/17/19 12:00 98.5 89 24 105/61 (76) 95 12/17/19 11:37 93 Intake and Output 12/17/19 12/18/19 19:00 07:00 Intake Total 1386.25 ml 990.0 ml Output Total 600 ml 1000 ml Balance 786.25 ml -10.0 ml Intake IV Total 1386.25 ml 990.0 ml Output Urine Total 600 ml 1000 ml # Bowel Movements 5 8 Laboratory Tests 12/18/19 04:00: White Blood Count 16.9H, Red Blood Count 2.76L, Hemoglobin 8.5L, Hematocrit 24.2L, Mean Corpuscular Volume 88, Mean Corpuscular Hemoglobin 30.9, Mean Corpuscular Hemoglobin Concent 35.2, Red Cell Distribution Width 12.6, Platelet Count 153, Mean Platelet Volume 8.2, Neutrophils (%) (Auto) 76.0H, Lymphocytes ( %) (Auto) 16.7L, Monocytes (%) (Auto) 3.9, Eosinophils (%) (Auto) 2.8, Basophils (%) (Auto) 0.6, Sodium Level 148H, Potassium Level 3.1L, Chloride Level 115H, Carbon Dioxide Level 23, Anion Gap 10, Blood Urea Nitrogen 13, Creatinine 0.8, Estimat Glomerular Filtration Rate > 60, Glucose Level 155H, Calcium Level 7.7L, Phosphorus Level 3.5, Magnesium Level 1.7L, Total Bilirubin 0.3, Gamma Glutamyl Transpeptidase 15, Aspartate Amino Transf (AST/SGOT) 9L, Alanine Aminotransferase (ALT/SGPT) 37, Alkaline Phosphatase 92, C-Reactive Protein, Quantitative 10.4H, Pro-B-Type Natriuretic Peptide 768H, Total Protein 5.1L, Albumin 1.2L, Globulin 3.9, Albumin/Globulin Ratio 0.3L Height (Feet): 5 Height (Inches): 5.00 Weight (Pounds): 156 General Appearance: no apparent distress Neck: normal alignment Cardiovascular: normal rate Respiratory/Chest: lungs clear Abdomen: normal bowel sounds Objective Current Medications Medications (Trade) Dose Ordered Sig/Esequiel Route PRN Reason Start Time Stop Time Status Last Admin Dose Admin Acetaminophen (Tylenol) 650 mg Q4H PRN GT Mild Pain (Pain Scale 1-3) 12/15/19 20:00 01/10/20 19:59 Acetaminophen (Tylenol) 650 mg Q4H PRN RECTAL Mild Pain (Pain Scale 1-3) 12/15/19 20:00 01/10/20 19:59 12/16/19 21:54 Chlorhexidine Gluconate (Bijal-Hex 2%) 1 applic DAILY@2000 TOPIC 12/15/19 20:00 03/11/20 19:59 12/17/19 20:50 Dextrose 1,000 ml @ 75 mls/hr [id number] IV 12/16/19 19:45 01/13/20 08:59 12/18/19 09:16 Dextrose (Dextrose 50%) 25 ml Q30M PRN IV Hypoglycemia 12/15/19 20:00 03/12/20 01:59 Dextrose (Dextrose 50%) 50 ml Q30M PRN IV Hypoglycemia 12/15/19 20:00 03/12/20 01:59 Hydroxychloroquine Sulfate (Plaquenil) 200 mg Q12HR ORAL 12/18/19 09:00 12/21/19 21:01 12/18/19 09:43 Insulin Aspart (NovoLOG) Q4HR SUBQ 12/15/19 21:00 03/12/20 04:59 12/18/19 09:45 Insulin Detemir (Levemir) 10 units BID SUBQ 12/16/19 09:00 03/12/20 08:59 12/18/19 09:44 Magnesium Sulfate 100 ml @ 100 mls/hr Q1H IVPB 12/18/19 11:00 12/18/19 12:59 12/18/19 11:18 Metoclopramide HCl (Reglan) 5 mg EVERY 8 HOURS IVP 12/15/19 22:00 01/11/20 13:59 12/18/19 06:55 Ondansetron HCl (Zofran) 4 mg Q6H PRN IVP Nausea & Vomiting 12/15/19 20:00 01/10/20 19:59 Pantoprazole (Protonix) 40 mg EVERY 12 HOURS IVP 12/15/19 21:00 01/11/20 08:59 12/18/19 09:43 Piperacillin Sod/ Tazobactam Sod 3.375 gm/Dextrose 110 ml @ 27.5 mls/hr Q8H IVPB 12/17/19 17:00 12/22/19 23:59 12/18/19 09:16 Potassium Chloride (K-Dur) 40 meq TWICE A DAY ORAL 12/18/19 18:00 03/17/20 08:59 Spironolactone (Aldactone) 25 mg BID ORAL 12/18/19 11:00 01/17/20 10:59 Stef Ortega MD December 18, 2019 11:28
[2019-12-18 12:00] VITALS: BP 131/76
--- NOTE | 2019-12-18 12:21 | Nephrology Progress Note ---
Assessment/Plan Problem List: (1) DEANDRA (acute kidney injury) Assessment: Resolved (2) Hypotension (3) Cardiac arrest (4) DKA (diabetic ketoacidoses) (5) Respiratory distress (6) Coffee ground emesis (7) Electrolyte imbalance Assessment Acute renal failure which probably is superimposed on chronic kidney disease History of diabetes mellitus, most likely diabetic nephropathy. Presents with diabetic ketoacidosis Acute respiratory failure requiring intubation and mechanical ventilation Aspiration pneumonia, upper GI bleed Proteinuria and severe hypoalbuminemia should rule out nephrotic range proteinuria Anemia Electrolyte imbalances Plan Patient is doing well post extubation Will replace potassium, magnesium, and phosphorus as needed Previously 2 units of packed RBCs was transfused Hydrate as needed and monitor electrolytes Per orders Previously Monitor renal parameters Avoid nephrotoxic's Anemia work-up Urine studies Keep blood sugar and blood pressure in check Per consultants Discussed with RN Subjective ROS Limited/Unobtainable: No Constitutional: Reports: malaise, weakness Objective Objective Last 24 Hour Vital Signs Date Time Temp Pulse Resp B/P (MAP) Pulse Ox O2 Delivery O2 Flow Rate FiO2 12/18/19 12:00 Nasal Cannula 4.0 12/18/19 12:00 97.9 89 18 131/76 (94) 99 12/18/19 08:00 Nasal Cannula 4.0 12/18/19 08:00 101 12/18/19 08:00 98.3 94 17 137/71 (93) 98 12/18/19 04:00 97 12/18/19 04:00 Nasal Cannula 4.0 12/18/19 04:00 98.9 83 20 117/70 (86) 97 12/18/19 00:00 98.8 97 24 108/65 (79) 98 12/18/19 00:00 Nasal Cannula 4.0 12/18/19 00:00 92 12/17/19 20:00 Nasal Cannula 4.0 12/17/19 20:00 93 12/17/19 20:00 98.2 93 24 110/69 (83) 98 12/17/19 16:00 Nasal Cannula 4.0 12/17/19 16:00 99.5 91 26 145/79 (101) 96 12/17/19 15:25 95 Intake and Output 12/17/19 12/18/19 19:00 07:00 Intake Total 1386.25 ml 990.0 ml Output Total 600 ml 1000 ml Balance 786.25 ml -10.0 ml Intake IV Total 1386.25 ml 990.0 ml Output Urine Total 600 ml 1000 ml # Bowel Movements 5 8 Current Medications Medications (Trade) Dose Ordered Sig/Esequiel Route PRN Reason Start Time Stop Time Status Last Admin Dose Admin Acetaminophen (Tylenol) 650 mg Q4H PRN GT Mild Pain (Pain Scale 1-3) 12/15/19 20:00 01/10/20 19:59 Acetaminophen (Tylenol) 650 mg Q4H PRN RECTAL Mild Pain (Pain Scale 1-3) 12/15/19 20:00 01/10/20 19:59 12/16/19 21:54 Chlorhexidine Gluconate (Bijal-Hex 2%) 1 applic DAILY@2000 TOPIC 12/15/19 20:00 03/11/20 19:59 12/17/19 20:50 Dextrose 1,000 ml @ 75 mls/hr [id number] IV 12/16/19 19:45 01/13/20 08:59 12/18/19 09:16 Dextrose (Dextrose 50%) 25 ml Q30M PRN IV Hypoglycemia 12/15/19 20:00 03/12/20 01:59 Dextrose (Dextrose 50%) 50 ml Q30M PRN IV Hypoglycemia 12/15/19 20:00 03/12/20 01:59 Hydroxychloroquine Sulfate (Plaquenil) 200 mg Q12HR ORAL 12/18/19 09:00 12/21/19 21:01 12/18/19 09:43 Insulin Aspart (NovoLOG) Q4HR SUBQ 12/15/19 21:00 03/12/20 04:59 12/18/19 09:45 Insulin Detemir (Levemir) 10 units BID SUBQ 12/16/19 09:00 03/12/20 08:59 12/18/19 09:44 Magnesium Sulfate 100 ml @ 100 mls/hr Q1H IVPB 12/18/19 11:00 12/18/19 12:59 12/18/19 11:18 Metoclopramide HCl (Reglan) 5 mg EVERY 8 HOURS IVP 12/15/19 22:00 01/11/20 13:59 12/18/19 06:55 Ondansetron HCl (Zofran) 4 mg Q6H PRN IVP Nausea & Vomiting 12/15/19 20:00 01/10/20 19:59 Pantoprazole (Protonix) 40 mg EVERY 12 HOURS IVP 12/15/19 21:00 01/11/20 08:59 12/18/19 09:43 Piperacillin Sod/ Tazobactam Sod 3.375 gm/Dextrose 110 ml @ 27.5 mls/hr Q8H IVPB 12/17/19 17:00 12/22/19 23:59 12/18/19 09:16 Potassium Chloride (K-Dur) 40 meq TWICE A DAY ORAL 12/18/19 18:00 03/17/20 08:59 Spironolactone (Aldactone) 25 mg BID ORAL 12/18/19 11:00 01/17/20 10:59 Laboratory Tests 12/18/19 04:00: White Blood Count 16.9H, Red Blood Count 2.76L, Hemoglobin 8.5L, Hematocrit 24.2L, Mean Corpuscular Volume 88, Mean Corpuscular Hemoglobin 30.9, Mean Corpuscular Hemoglobin Concent 35.2, Red Cell Distribution Width 12.6, Platelet Count 153, Mean Platelet Volume 8.2, Neutrophils (%) (Auto) 76.0H, Lymphocytes ( %) (Auto) 16.7L, Monocytes (%) (Auto) 3.9, Eosinophils (%) (Auto) 2.8, Basophils (%) (Auto) 0.6, Sodium Level 148H, Potassium Level 3.1L, Chloride Level 115H, Carbon Dioxide Level 23, Anion Gap 10, Blood Urea Nitrogen 13, Creatinine 0.8, Estimat Glomerular Filtration Rate > 60, Glucose Level 155H, Calcium Level 7.7L, Phosphorus Level 3.5, Magnesium Level 1.7L, Total Bilirubin 0.3, Gamma Glutamyl Transpeptidase 15, Aspartate Amino Transf (AST/SGOT) 9L, Alanine Aminotransferase (ALT/SGPT) 37, Alkaline Phosphatase 92, C-Reactive Protein, Quantitative 10.4H, Pro-B-Type Natriuretic Peptide 768H, Total Protein 5.1L, Albumin 1.2L, Globulin 3.9, Albumin/Globulin Ratio 0.3L Height (Feet): 5 Height (Inches): 5.00 Weight (Pounds): 156 General Appearance: no apparent distress, lethargic Cardiovascular: bradycardia Respiratory/Chest: decreased breath sounds Abdomen: distended Don Ventura MD December 18, 2019 12:21
[2019-12-18] MEDS ORDERED: Sterile Water Irrig 1000ml IRRIG ONE ×2 (13:25→14:11)
[2019-12-18] MEDS ORDERED: NS Irrig 1000ml ONE (13:25)
--- NOTE | 2019-12-18 13:59 | Cardiac Electrophysiology PN ---
Assessment/Plan Assessment/Plan 1. S/P Septic shock. Off pressors. EF 60%. EKG shows sinus tachycardia with no acute ST-T wave abnormalities. Already on broad-spectrum IV antibiotic 2. S/P Respiratory failure, Extubated 3. Hypotension. Resolved 4. Coffee-ground emesis. S/P 2 units of PRBC 5. S/P Diabetic ketoacidosis 6. Persistent hypokalemia. Replaced with 40 meq KCL ivpb x3 yesterday and still 3.1 today Replaced again po by Dr Ventura 7. Failed swallow eval DW RN Subjective Subjective Covid test from 12/13 results pending. Failed swallow eval. K still 23.1 despite 120 meq IVPB replacement yesterday Objective Last 24 Hour Vital Signs Date Time Temp Pulse Resp B/P (MAP) Pulse Ox O2 Delivery O2 Flow Rate FiO2 12/18/19 12:00 Nasal Cannula 4.0 12/18/19 12:00 97.9 89 18 131/76 (94) 99 12/18/19 11:38 100 12/18/19 08:00 Nasal Cannula 4.0 12/18/19 08:00 101 12/18/19 08:00 98.3 94 17 137/71 (93) 98 12/18/19 04:00 97 12/18/19 04:00 Nasal Cannula 4.0 12/18/19 04:00 98.9 83 20 117/70 (86) 97 12/18/19 00:00 98.8 97 24 108/65 (79) 98 12/18/19 00:00 Nasal Cannula 4.0 12/18/19 00:00 92 12/17/19 20:00 Nasal Cannula 4.0 12/17/19 20:00 93 12/17/19 20:00 98.2 93 24 110/69 (83) 98 12/17/19 16:00 Nasal Cannula 4.0 12/17/19 16:00 99.5 91 26 145/79 (101) 96 12/17/19 15:25 95 Intake and Output 12/17/19 12/18/19 19:00 07:00 Intake Total 1386.25 ml 990.0 ml Output Total 600 ml 1000 ml Balance 786.25 ml -10.0 ml Intake IV Total 1386.25 ml 990.0 ml Output Urine Total 600 ml 1000 ml # Bowel Movements 5 8 Laboratory Tests Test 12/18/19 04:00 White Blood Count 16.9 K/UL (4.8-10.8) H Red Blood Count 2.76 M/UL (4.20-5.40) L Hemoglobin 8.5 G/DL (12.0-16.0) L Hematocrit 24.2 % (37.0-47.0) L Mean Corpuscular Volume 88 FL (80-99) Mean Corpuscular Hemoglobin 30.9 PG (27.0-31.0) Mean Corpuscular Hemoglobin Concent 35.2 G/DL (32.0-36.0) Red Cell Distribution Width 12.6 % (11.6-14.8) Platelet Count 153 K/UL (150-450) Mean Platelet Volume 8.2 FL (6.5-10.1) Neutrophils (%) (Auto) 76.0 % (45.0-75.0) H Lymphocytes (%) (Auto) 16.7 % (20.0-45.0) L Monocytes (%) (Auto) 3.9 % (1.0-10.0) Eosinophils (%) (Auto) 2.8 % (0.0-3.0) Basophils (%) (Auto) 0.6 % (0.0-2.0) Sodium Level 148 MMOL/L (136-145) H Potassium Level 3.1 MMOL/L (3.5-5.1) L Chloride Level 115 MMOL/L (98-107) H Carbon Dioxide Level 23 MMOL/L (21-32) Anion Gap 10 mmol/L (5-15) Blood Urea Nitrogen 13 mg/dL (7-18) Creatinine 0.8 MG/DL (0.55-1.30) Estimat Glomerular Filtration Rate > 60 mL/min (>60) Glucose Level 155 MG/DL (74-106) H Calcium Level 7.7 MG/DL (8.5-10.1) L Phosphorus Level 3.5 MG/DL (2.5-4.9) Magnesium Level 1.7 MG/DL (1.8-2.4) L Total Bilirubin 0.3 MG/DL (0.2-1.0) Gamma Glutamyl Transpeptidase 15 U/L (5-85) Aspartate Amino Transf (AST/SGOT) 9 U/L (15-37) L Alanine Aminotransferase (ALT/SGPT) 37 U/L (12-78) Alkaline Phosphatase 92 U/L (46-116) C-Reactive Protein, Quantitative 10.4 mg/dL (0.00-0.90) H Pro-B-Type Natriuretic Peptide 768 pg/mL (0-125) H Total Protein 5.1 G/DL (6.4-8.2) L Albumin 1.2 G/DL (3.4-5.0) L Globulin 3.9 g/dL Albumin/Globulin Ratio 0.3 (1.0-2.7) L Objective HEAD AND NECK: No JVD LUNGS: Coarse rhonchi. CARDIOVASCULAR: Irregular S1-S2 and tachycardic. ABDOMEN: Soft. EXTREMITIES: No pitting edema. Gerardo Dyer MD December 18, 2019 13:59
[2019-12-18] MEDS ORDERED: Tubing IV Blood Pump IV ONE (14:12)
[2019-12-18 16:00] VITALS: BP 104/56
--- NOTE | 2019-12-18 19:16 | General Progress Note ---
Assessment/Plan Assessment/Plan: Assessment - concerned about possible ongoing aspiration - Rising WBC noted - Dark stools / GIB - Azotemia - DKA - AMS - s/p arrest - guarded Recommendations - Hold PO diet - NGT --> TF - Monitor H&H - PPI - transfuse PRN Subjective Allergies: Coded Allergies: No Known Allergies (Unverified , 12/11/19) Subjective Above noted pt on po diet D/w Rn - notes cough with PO intake Rising WBC noted RN reports dark stool Objective Last 24 Hour Vital Signs Date Time Temp Pulse Resp B/P (MAP) Pulse Ox O2 Delivery O2 Flow Rate FiO2 12/18/19 16:00 Nasal Cannula 4.0 12/18/19 16:00 98.8 74 18 104/56 (72) 99 12/18/19 15:25 93 12/18/19 12:00 Nasal Cannula 4.0 12/18/19 12:00 97.9 89 18 131/76 (94) 99 12/18/19 11:38 100 12/18/19 08:00 Nasal Cannula 4.0 12/18/19 08:00 101 12/18/19 08:00 98.3 94 17 137/71 (93) 98 12/18/19 04:00 97 12/18/19 04:00 Nasal Cannula 4.0 12/18/19 04:00 98.9 83 20 117/70 (86) 97 12/18/19 00:00 98.8 97 24 108/65 (79) 98 12/18/19 00:00 Nasal Cannula 4.0 12/18/19 00:00 92 12/17/19 20:00 Nasal Cannula 4.0 12/17/19 20:00 93 12/17/19 20:00 98.2 93 24 110/69 (83) 98 Intake and Output 12/17/19 12/18/19 19:00 07:00 Intake Total 1386.25 ml 990.0 ml Output Total 600 ml 1000 ml Balance 786.25 ml -10.0 ml IV Total 1386.25 ml 990.0 ml Output Urine Total 600 ml 1000 ml # Bowel Movements 5 8 Laboratory Tests 12/18/19 04:00: White Blood Count 16.9H, Red Blood Count 2.76L, Hemoglobin 8.5L, Hematocrit 24.2L, Mean Corpuscular Volume 88, Mean Corpuscular Hemoglobin 30.9, Mean Corpuscular Hemoglobin Concent 35.2, Red Cell Distribution Width 12.6, Platelet Count 153, Mean Platelet Volume 8.2, Neutrophils (%) (Auto) 76.0H, Lymphocytes ( %) (Auto) 16.7L, Monocytes (%) (Auto) 3.9, Eosinophils (%) (Auto) 2.8, Basophils (%) (Auto) 0.6, Sodium Level 148H, Potassium Level 3.1L, Chloride Level 115H, Carbon Dioxide Level 23, Anion Gap 10, Blood Urea Nitrogen 13, Creatinine 0.8, Estimat Glomerular Filtration Rate > 60, Glucose Level 155H, Calcium Level 7.7L, Phosphorus Level 3.5, Magnesium Level 1.7L, Total Bilirubin 0.3, Gamma Glutamyl Transpeptidase 15, Aspartate Amino Transf (AST/SGOT) 9L, Alanine Aminotransferase (ALT/SGPT) 37, Alkaline Phosphatase 92, C-Reactive Protein, Quantitative 10.4H, Pro-B-Type Natriuretic Peptide 768H, Total Protein 5.1L, Albumin 1.2L, Globulin 3.9, Albumin/Globulin Ratio 0.3L Height (Feet): 5 Height (Inches): 5.00 Weight (Pounds): 156 Objective Debilitated WW NCAT supple Coarse BS RR abd soft ND Jennifer Ricks MD December 18, 2019 19:16
[2019-12-18 20:00] VITALS: BP 128/76
[2019-12-18] MEDS: Dyna-Hex 2% Top Sol 2oz TOPIC SCH (20:48)
--- NOTE | 2019-12-18 22:15 | Progress Note ---
DATE: 12/18/2019 SUBJECTIVE: A 58-year-old female, currently in the bed, doing better. PHYSICAL EXAMINATION: VITAL SIGNS: Blood pressure 130/70, pulse 84, respirations 18, no fever. CHEST: Bilateral few crackles. CARDIOVASCULAR: Regular rhythm. No gallop. No murmur. ABDOMEN: Soft. Positive bowel sounds. Nontender. EXTREMITIES: CCE. NEUROLOGICAL: Generalized weakness, but improving. ASSESSMENT: 1. Acute cardiopulmonary arrest. 2. Diabetes. 3. Encephalopathy. 4. Dysphagia. PLAN: Continue IV antibiotic. Continue bronchodilator treatments. Sliding scale and Accu-Chek ____ blood sugars are improving. Frank Pinzon M.D. DR: FRANCES JOB#: [id number] CC:
[2019-12-19] VITALS: BP 139/79
[2019-12-19] MEDS: Piperacillin/Tazobactam 3.375 GM in D5W 110 ML IVPB SCH ×3 (00:10→17:58)
[2019-12-19] MEDS: NovoLOG Insulin Flexpen SUBQ SCH ×6 (01:00→20:06)
--- NOTE | 2019-12-19 03:19 | Diagnostic Imaging Report ---
EXAM: XR Abdomen, 2 Views CLINICAL HISTORY: NGT TECHNIQUE: Frontal view of the abdomen/pelvis with upright view of the abdomen. COMPARISON: 12/11/19 FINDINGS: Lower thorax: There are probable small bilateral pleural effusions. Intraperitoneal space: No free air. Gastrointestinal tract: Unremarkable. No dilation. Bones/joints: Unremarkable. Tubes, lines and devices: There is an NG tube with its tip in the mid stomach in good position. There is a left sided PICC line with its tip in the junction of the atrium and superior vena cava. There is been removal of an endotracheal tube Other findings: There are improving mild bilateral diffuse patchy alveolar infiltrates. No new infiltrates are notified. IMPRESSION: 1. NG tube and PICC line in good position. 2. Improving bilateral infiltrates.
[2019-12-19 04:00] VITALS: BP 132/71
[2019-12-19] MEDS: Acetaminophen 650mg/20.3ml GT PRN ×2 (04:34→20:00)
[2019-12-19] MEDS: Metoclopramide 10mg/2ml Inj IVP SCH (05:02)
[2019-12-19 05:30] LABS: BASOPHILS % (AUTO) 0.3 % (0.0-2.0); EOSINOPHILS % (AUTO) 3.1 % (0.0-3.0); HEMATOCRIT 24.4 % (37.0-47.0); HEMOGLOBIN 8.4 G/DL (12.0-16.0); LYMPHOCYTES % (AUTO) 16.7 % (20.0-45.0); MEAN CORPUSCULAR VOLUME 88 FL (80-99); MONOCYTES % (AUTO) 2.3 % (1.0-10.0); NEUTROPHILS % (AUTO) 77.7 % (45.0-75.0); PLATELET COUNT 179 K/UL (150-450); RED BLOOD COUNT 2.77 M/UL (4.20-5.40); RED CELL DISTRIBUTION WIDTH 12.4 % (11.6-14.8); WHITE BLOOD COUNT 15.5 K/UL (4.8-10.8)
[2019-12-19 06:16] LABS: % IRON SATURATION 14 % (15-50); IRON 18 ug/dL (50-175); TOTAL IRON BINDING CAPACITY 125 ug/dL (250-450)
[2019-12-19 06:20] LABS: ALANINE AMINOTRANSFERASE 32 U/L (12-78); ALBUMIN 1.3 G/DL (3.4-5.0); ALBUMIN/GLOBULIN RATIO 0.3 (1.0-2.7); ALKALINE PHOSPHATASE 91 U/L (46-116); ANION GAP 10 mmol/L (5-15); ASPARTATE AMINO TRANSFERASE 25 U/L (15-37); BILIRUBIN,TOTAL 0.3 MG/DL (0.2-1.0); BLOOD UREA NITROGEN 9 mg/dL (7-18); CALCIUM 7.4 MG/DL (8.5-10.1); CARBON DIOXIDE 25 MMOL/L (21-32); CHLORIDE 108 MMOL/L (98-107); CREATININE 0.7 MG/DL (0.55-1.30); FERRITIN 489 NG/ML (8-388); PHOSPHORUS 3.5 MG/DL (2.5-4.9); SODIUM 143 MMOL/L (136-145)
[2019-12-19 06:24] LABS: POTASSIUM 2.6 MMOL/L (3.5-5.1)
[2019-12-19 08:00] VITALS: BP 116/70
[2019-12-19] MEDS: Pantoprazole Inj IVP SCH ×2 (09:07→20:00)
[2019-12-19] MEDS: Spironolactone 25mg tab ORAL SCH ×2 (09:07→18:22)
[2019-12-19] MEDS: Levemir Flexpen SUBQ SCH ×2 (09:42→18:22)
[2019-12-19] MEDS: D5 1/2NS w/KCl 40meq 1000ml 1,000 ML IV SCH (10:03)
--- NOTE | 2019-12-19 10:38 | Pulmonology Progress Note ---
Subjective ROS Limited/Unobtainable: No Interval Events: Extubated 12/13/19; NGT in place Constitutional: Reports: no symptoms HEENT: Repors: no symptoms Respiratory: Reports: no symptoms Cardiovascular: Reports: no symptoms Gastrointestinal/Abdominal: Reports: no symptoms Genitourinary: Reports: no symptoms Allergies: Coded Allergies: No Known Allergies (Unverified , 12/11/19) All Systems: reviewed and negative except above Objective Last 24 Hour Vital Signs Date Time Temp Pulse Resp B/P (MAP) Pulse Ox O2 Delivery O2 Flow Rate FiO2 12/19/19 08:00 97.9 100 23 116/70 (85) 100 12/19/19 08:00 Nasal Cannula 2.0 12/19/19 07:44 91 12/19/19 05:04 98.8 12/19/19 04:00 95 12/19/19 04:00 98.8 102 23 132/71 (91) 100 12/19/19 03:50 Nasal Cannula 4.0 12/19/19 00:00 Nasal Cannula 4.0 12/19/19 00:00 105 12/19/19 00:00 99.5 104 25 139/79 (99) 98 12/18/19 20:00 Nasal Cannula 4.0 12/18/19 20:00 100.5 101 24 128/76 (93) 98 12/18/19 19:26 92 12/18/19 16:00 Nasal Cannula 4.0 12/18/19 16:00 98.8 74 18 104/56 (72) 99 12/18/19 15:25 93 12/18/19 12:00 Nasal Cannula 4.0 12/18/19 12:00 97.9 89 18 131/76 (94) 99 12/18/19 11:38 100 Intake and Output 12/18/19 12/19/19 19:00 07:00 Intake Total 942.5 ml 583.75 ml Output Total 500 ml 1400 ml Balance 442.5 ml -816.25 ml Intake Oral 30 ml IV Total 912.5 ml 573.75 ml Tube Feeding 10 ml Output Urine Total 500 ml 1400 ml # Voids 1 # Bowel Movements 5 2 General Appearance: no acute distress HEENT: normocephalic Respiratory: chest wall non-tender, lungs clear Cardiovascular: normal peripheral pulses, normal rate Abdomen: normal bowel sounds Laboratory Tests 12/19/19 03:00: White Blood Count 15.5H, Red Blood Count 2.77L, Hemoglobin 8.4L, Hematocrit 24.4L, Mean Corpuscular Volume 88, Mean Corpuscular Hemoglobin 30.5, Mean Corpuscular Hemoglobin Concent 34.6, Red Cell Distribution Width 12.4, Platelet Count 179, Mean Platelet Volume 7.3, Neutrophils (%) (Auto) 77.7H, Lymphocytes ( %) (Auto) 16.7L, Monocytes (%) (Auto) 2.3, Eosinophils (%) (Auto) 3.1H, Basophils (%) (Auto) 0.3, Sodium Level 143, Potassium Level 2.6*L, Chloride Level 108H, Carbon Dioxide Level 25, Anion Gap 10, Blood Urea Nitrogen 9, Creatinine 0.7, Estimat Glomerular Filtration Rate > 60, Glucose Level 229H, Calcium Level 7.4L, Phosphorus Level 3.5, Magnesium Level 2.0, Iron Level 18L, Total Iron Binding Capacity 125L, Percent Iron Saturation 14L, Unsaturated Iron Binding 107L, Ferritin 489H, Total Bilirubin 0.3, Aspartate Amino Transf (AST/ SGOT) 25, Alanine Aminotransferase (ALT/SGPT) 32, Alkaline Phosphatase 91, Total Protein 5.2L, Albumin 1.3L, Globulin 3.9, Albumin/Globulin Ratio 0.3L Current Medications Medications (Trade) Dose Ordered Sig/Esequiel Route PRN Reason Start Time Stop Time Status Last Admin Dose Admin Acetaminophen (Tylenol) 650 mg Q4H PRN GT Mild Pain (Pain Scale 1-3) 12/15/19 20:00 01/10/20 19:59 12/19/19 04:34 Acetaminophen (Tylenol) 650 mg Q4H PRN RECTAL Mild Pain (Pain Scale 1-3) 12/15/19 20:00 01/10/20 19:59 12/16/19 21:54 Chlorhexidine Gluconate (Bijal-Hex 2%) 1 applic DAILY@1999 TOPIC 12/15/19 20:00 03/11/20 19:59 12/18/19 20:48 Dextrose (Dextrose 50%) 25 ml Q30M PRN IV Hypoglycemia 12/15/19 20:00 03/12/20 01:59 Dextrose (Dextrose 50%) 50 ml Q30M PRN IV Hypoglycemia 12/15/19 20:00 03/12/20 01:59 Dextrose/ Electrolytes 1,000 ml @ 50 mls/hr Q20H IV 12/19/19 10:00 01/18/20 09:59 12/19/19 10:03 Insulin Aspart (NovoLOG) Q4HR SUBQ 12/15/19 21:00 03/12/20 04:59 12/19/19 09:42 Insulin Detemir (Levemir) 10 units BID SUBQ 12/16/19 09:00 03/12/20 08:59 12/19/19 09:42 Metoclopramide HCl (Reglan) 5 mg EVERY 8 HOURS IVP 12/15/19 22:00 01/11/20 13:59 12/19/19 05:02 Ondansetron HCl (Zofran) 4 mg Q6H PRN IVP Nausea & Vomiting 12/15/19 20:00 01/10/20 19:59 Pantoprazole (Protonix) 40 mg EVERY 12 HOURS IVP 12/15/19 21:00 01/11/20 08:59 12/19/19 09:07 Piperacillin Sod/ Tazobactam Sod 3.375 gm/Dextrose 110 ml @ 27.5 mls/hr Q8H IVPB 12/17/19 17:00 12/22/19 23:59 12/19/19 09:09 Potassium Chloride 100 ml @ 50 mls/hr Q3HR IVPB 12/19/19 09:00 12/19/19 16:59 12/19/19 09:09 Potassium Chloride (K-Dur) 40 meq TID ORAL 12/19/19 09:00 03/17/20 08:59 12/19/19 09:08 Spironolactone (Aldactone) 25 mg BID ORAL 12/18/19 11:00 01/17/20 10:59 12/19/19 09:07 Assessment/Plan Assessment/Plan IMPRESSION: 1. DKA. Resolved 2. Upper GI bleed. 3. Respiratory failure. Now extubated 4. Lactic acidosis. DISCUSSION: Continue antibiotics. GI following for upper gastrointestinal bleeding, Not on pressors. I will continue oxygen, Protonix, DVT prophylaxis. Saturating 100% on 4L/min O2 Seen in [facility] Await swallow eval Begin enteral feedings if swallow eval passed Has NGT in place Osorio Harris Omar Syed MD December 19, 2019 10:38
--- NOTE | 2019-12-19 11:19 | General Progress Note ---
Assessment/Plan Problem List: (1) DKA (diabetic ketoacidoses) ICD Codes: E11.10 - Type 2 diabetes mellitus with ketoacidosis without coma SNOMED: 035511041, [id number] Qualifiers: Qualified Codes: E13.11 - Other specified diabetes mellitus with ketoacidosis with coma (2) Cardiac arrest ICD Codes: I46.9 - Cardiac arrest, cause unspecified SNOMED: 084958662 (3) Coffee ground emesis ICD Codes: K92.0 - Hematemesis SNOMED: 74794438 (4) Abnormal TSH ICD Codes: R79.89 - Other specified abnormal findings of blood chemistry SNOMED: 914182574 Assessment/Plan: increase Levemir to 15 units bid continue Novolog sliding scale every 4 hours thyroid function studies suggestive of "sick euthyroid" no need for thyroid medications repeat thyroid function in 1-2 weeks Subjective ROS Limited/Unobtainable: Yes Allergies: Coded Allergies: No Known Allergies (Unverified , 12/11/19) Subjective events noted glucose values are elevated still NPO NGT in place on low rate dextrose Item Value Date Time Bedside Blood Glucose 239 mg/dl H 12/19/19 0942 Bedside Blood Glucose 220 mg/dl H 12/19/19 0526 Bedside Blood Glucose 207 mg/dl H 12/18/19 2100 Bedside Blood Glucose 209 mg/dl H 12/18/19 1816 Bedside Blood Glucose 197 mg/dl H 12/19/19 0100 Bedside Blood Glucose 215 mg/dl H 12/18/19 1356 Bedside Blood Glucose 162 mg/dl H 12/18/19 0945 Objective Last 24 Hour Vital Signs Date Time Temp Pulse Resp B/P (MAP) Pulse Ox O2 Delivery O2 Flow Rate FiO2 12/19/19 08:00 97.9 100 23 116/70 (85) 100 12/19/19 08:00 Nasal Cannula 2.0 12/19/19 07:44 91 12/19/19 05:04 98.8 12/19/19 04:00 95 12/19/19 04:00 98.8 102 23 132/71 (91) 100 12/19/19 03:50 Nasal Cannula 4.0 12/19/19 00:00 Nasal Cannula 4.0 12/19/19 00:00 105 12/19/19 00:00 99.5 104 25 139/79 (99) 98 12/18/19 20:00 Nasal Cannula 4.0 12/18/19 20:00 100.5 101 24 128/76 (93) 98 12/18/19 19:26 92 12/18/19 16:00 Nasal Cannula 4.0 12/18/19 16:00 98.8 74 18 104/56 (72) 99 12/18/19 15:25 93 12/18/19 12:00 Nasal Cannula 4.0 12/18/19 12:00 97.9 89 18 131/76 (94) 99 12/18/19 11:38 100 Intake and Output 12/18/19 12/19/19 19:00 07:00 Intake Total 942.5 ml 658.75 ml Output Total 500 ml 1400 ml Balance 442.5 ml -741.25 ml Intake Oral 30 ml IV Total 912.5 ml 648.75 ml Tube Feeding 10 ml Output Urine Total 500 ml 1400 ml # Voids 1 # Bowel Movements 5 2 Laboratory Tests 12/19/19 03:00: White Blood Count 15.5H, Red Blood Count 2.77L, Hemoglobin 8.4L, Hematocrit 24.4L, Mean Corpuscular Volume 88, Mean Corpuscular Hemoglobin 30.5, Mean Corpuscular Hemoglobin Concent 34.6, Red Cell Distribution Width 12.4, Platelet Count 179, Mean Platelet Volume 7.3, Neutrophils (%) (Auto) 77.7H, Lymphocytes ( %) (Auto) 16.7L, Monocytes (%) (Auto) 2.3, Eosinophils (%) (Auto) 3.1H, Basophils (%) (Auto) 0.3, Sodium Level 143, Potassium Level 2.6*L, Chloride Level 108H, Carbon Dioxide Level 25, Anion Gap 10, Blood Urea Nitrogen 9, Creatinine 0.7, Estimat Glomerular Filtration Rate > 60, Glucose Level 229H, Calcium Level 7.4L, Phosphorus Level 3.5, Magnesium Level 2.0, Iron Level 18L, Total Iron Binding Capacity 125L, Percent Iron Saturation 14L, Unsaturated Iron Binding 107L, Ferritin 489H, Total Bilirubin 0.3, Aspartate Amino Transf (AST/ SGOT) 25, Alanine Aminotransferase (ALT/SGPT) 32, Alkaline Phosphatase 91, Total Protein 5.2L, Albumin 1.3L, Globulin 3.9, Albumin/Globulin Ratio 0.3L Height (Feet): 5 Height (Inches): 5.00 Weight (Pounds): 163 General Appearance: no apparent distress Neck: normal alignment Cardiovascular: normal rate Respiratory/Chest: decreased breath sounds Abdomen: normal bowel sounds Objective Current Medications Medications (Trade) Dose Ordered Sig/Esequiel Route PRN Reason Start Time Stop Time Status Last Admin Dose Admin Acetaminophen (Tylenol) 650 mg Q4H PRN GT Mild Pain (Pain Scale 1-3) 12/15/19 20:00 01/10/20 19:59 12/19/19 04:34 Acetaminophen (Tylenol) 650 mg Q4H PRN RECTAL Mild Pain (Pain Scale 1-3) 12/15/19 20:00 01/10/20 19:59 12/16/19 21:54 Chlorhexidine Gluconate (Bijal-Hex 2%) 1 applic DAILY@2000 TOPIC 12/15/19 20:00 03/11/20 19:59 12/18/19 20:48 Dextrose (Dextrose 50%) 25 ml Q30M PRN IV Hypoglycemia 12/15/19 20:00 03/12/20 01:59 Dextrose (Dextrose 50%) 50 ml Q30M PRN IV Hypoglycemia 12/15/19 20:00 03/12/20 01:59 Dextrose/ Electrolytes 1,000 ml @ 50 mls/hr Q20H IV 12/19/19 10:00 01/18/20 09:59 12/19/19 10:03 Insulin Aspart (NovoLOG) Q4HR SUBQ 12/15/19 21:00 03/12/20 04:59 12/19/19 09:42 Insulin Detemir (Levemir) 10 units BID SUBQ 12/16/19 09:00 03/12/20 08:59 12/19/19 09:42 Metoclopramide HCl (Reglan) 5 mg EVERY 8 HOURS IVP 12/15/19 22:00 01/11/20 13:59 12/19/19 05:02 Ondansetron HCl (Zofran) 4 mg Q6H PRN IVP Nausea & Vomiting 12/15/19 20:00 01/10/20 19:59 Pantoprazole (Protonix) 40 mg EVERY 12 HOURS IVP 12/15/19 21:00 01/11/20 08:59 12/19/19 09:07 Piperacillin Sod/ Tazobactam Sod 3.375 gm/Dextrose 110 ml @ 27.5 mls/hr Q8H IVPB 12/17/19 17:00 12/22/19 23:59 12/19/19 09:09 Potassium Chloride 100 ml @ 50 mls/hr Q3HR IVPB 12/19/19 09:00 12/19/19 16:59 12/19/19 09:09 Potassium Chloride (K-Dur) 40 meq TID ORAL 12/19/19 09:00 03/17/20 08:59 12/19/19 09:08 Spironolactone (Aldactone) 25 mg BID ORAL 12/18/19 11:00 01/17/20 10:59 12/19/19 09:07 Stef Ortega MD December 19, 2019 11:19
[2019-12-19 11:59] VITALS: BP 125/73
--- NOTE | 2019-12-19 12:08 | Nephrology Progress Note ---
Assessment/Plan Problem List: (1) DEANDRA (acute kidney injury) Assessment: Resolved (2) Hypotension (3) Cardiac arrest (4) DKA (diabetic ketoacidoses) (5) Respiratory distress (6) Coffee ground emesis (7) Electrolyte imbalance Assessment Acute renal failure which probably is superimposed on chronic kidney disease History of diabetes mellitus, most likely diabetic nephropathy. Presents with diabetic ketoacidosis Acute respiratory failure requiring intubation and mechanical ventilation Aspiration pneumonia, upper GI bleed Proteinuria and severe hypoalbuminemia should rule out nephrotic range proteinuria Anemia Electrolyte imbalances Plan Stop Reglan as the patient has diarrhea Start lactobacillus pending C. difficile results Patient is doing well post extubation Will replace potassium, magnesium, and phosphorus as needed Previously 2 units of packed RBCs was transfused Hydrate as needed and monitor electrolytes Per orders Previously Monitor renal parameters Avoid nephrotoxic's Anemia work-up Urine studies Keep blood sugar and blood pressure in check Per consultants Discussed with RN Subjective ROS Limited/Unobtainable: No Interval Events/Complaints RN reports the patient to have diarrhea Constitutional: Reports: malaise, weakness Objective Objective Last 24 Hour Vital Signs Date Time Temp Pulse Resp B/P (MAP) Pulse Ox O2 Delivery O2 Flow Rate FiO2 12/19/19 11:59 98.1 99 20 125/73 (90) 96 12/19/19 08:00 97.9 100 23 116/70 (85) 100 12/19/19 08:00 Nasal Cannula 2.0 12/19/19 07:44 91 12/19/19 05:04 98.8 12/19/19 04:00 95 12/19/19 04:00 98.8 102 23 132/71 (91) 100 12/19/19 03:50 Nasal Cannula 4.0 12/19/19 00:00 Nasal Cannula 4.0 12/19/19 00:00 105 12/19/19 00:00 99.5 104 25 139/79 (99) 98 12/18/19 20:00 Nasal Cannula 4.0 12/18/19 20:00 100.5 101 24 128/76 (93) 98 12/18/19 19:26 92 12/18/19 16:00 Nasal Cannula 4.0 12/18/19 16:00 98.8 74 18 104/56 (72) 99 12/18/19 15:25 93 Intake and Output 12/18/19 12/19/19 19:00 07:00 Intake Total 942.5 ml 658.75 ml Output Total 500 ml 1400 ml Balance 442.5 ml -741.25 ml Intake Oral 30 ml IV Total 912.5 ml 648.75 ml Tube Feeding 10 ml Output Urine Total 500 ml 1400 ml # Voids 1 # Bowel Movements 5 2 Laboratory Tests 12/19/19 03:00: White Blood Count 15.5H, Red Blood Count 2.77L, Hemoglobin 8.4L, Hematocrit 24.4L, Mean Corpuscular Volume 88, Mean Corpuscular Hemoglobin 30.5, Mean Corpuscular Hemoglobin Concent 34.6, Red Cell Distribution Width 12.4, Platelet Count 179, Mean Platelet Volume 7.3, Neutrophils (%) (Auto) 77.7H, Lymphocytes ( %) (Auto) 16.7L, Monocytes (%) (Auto) 2.3, Eosinophils (%) (Auto) 3.1H, Basophils (%) (Auto) 0.3, Sodium Level 143, Potassium Level 2.6*L, Chloride Level 108H, Carbon Dioxide Level 25, Anion Gap 10, Blood Urea Nitrogen 9, Creatinine 0.7, Estimat Glomerular Filtration Rate > 60, Glucose Level 229H, Calcium Level 7.4L, Phosphorus Level 3.5, Magnesium Level 2.0, Iron Level 18L, Total Iron Binding Capacity 125L, Percent Iron Saturation 14L, Unsaturated Iron Binding 107L, Ferritin 489H, Total Bilirubin 0.3, Aspartate Amino Transf (AST/ SGOT) 25, Alanine Aminotransferase (ALT/SGPT) 32, Alkaline Phosphatase 91, Total Protein 5.2L, Albumin 1.3L, Globulin 3.9, Albumin/Globulin Ratio 0.3L Height (Feet): 5 Height (Inches): 5.00 Weight (Pounds): 163 General Appearance: no apparent distress, lethargic EENT: other - Has NG tube Cardiovascular: tachycardia Respiratory/Chest: decreased breath sounds Abdomen: distended Don Ventura MD December 19, 2019 12:08
[2019-12-19] MEDS ORDERED: Metoclopramide 10mg/2ml Inj IVP PRN (12:15)
--- NOTE | 2019-12-19 12:15 | Infectious Diseases Prog Note ---
Assessment/Plan Assessment/Plan A: 1. Diabetic ketoacidosis with glucose of 1472. 2. Renal failure resolved 3. Leukocytosis is improving. 4. Pneumonia. COVID19 X 1: negative 5. Anemia 6. Hypokalemia PLAN: 1. Continue Zosyn. 2. Check stool C. Difficile Subjective ROS Limited/Unobtainable: No Constitutional: Denies: fever HEENT: Reports: other - muffled voice Respiratory: Reports: dry cough Gastrointestinal/Abdominal: Reports: diarrhea, other - loose stool Allergies: Coded Allergies: No Known Allergies (Unverified , 12/11/19) Objective Vital Signs Last 24 Hour Vital Signs Date Time Temp Pulse Resp B/P (MAP) Pulse Ox O2 Delivery O2 Flow Rate FiO2 12/19/19 11:59 98.1 99 20 125/73 (90) 96 12/19/19 08:00 97.9 100 23 116/70 (85) 100 12/19/19 08:00 Nasal Cannula 2.0 12/19/19 07:44 91 12/19/19 05:04 98.8 12/19/19 04:00 95 12/19/19 04:00 98.8 102 23 132/71 (91) 100 12/19/19 03:50 Nasal Cannula 4.0 12/19/19 00:00 Nasal Cannula 4.0 12/19/19 00:00 105 12/19/19 00:00 99.5 104 25 139/79 (99) 98 12/18/19 20:00 Nasal Cannula 4.0 12/18/19 20:00 100.5 101 24 128/76 (93) 98 12/18/19 19:26 92 12/18/19 16:00 Nasal Cannula 4.0 12/18/19 16:00 98.8 74 18 104/56 (72) 99 12/18/19 15:25 93 Height (Feet): 5 Height (Inches): 5.00 Weight (Pounds): 163 HEENT: mucous membranes moist Respiratory/Chest: other - oxygen by nasdal cannula Cardiovascular: tachycardia, other - PICC line Extremities: other - edema of hands Neurologic/Psychiatric: alert, responsive Laboratory Tests Test 12/19/19 03:00 White Blood Count 15.5 K/UL (4.8-10.8) H Red Blood Count 2.77 M/UL (4.20-5.40) L Hemoglobin 8.4 G/DL (12.0-16.0) L Hematocrit 24.4 % (37.0-47.0) L Mean Corpuscular Volume 88 FL (80-99) Mean Corpuscular Hemoglobin 30.5 PG (27.0-31.0) Mean Corpuscular Hemoglobin Concent 34.6 G/DL (32.0-36.0) Red Cell Distribution Width 12.4 % (11.6-14.8) Platelet Count 179 K/UL (150-450) Mean Platelet Volume 7.3 FL (6.5-10.1) Neutrophils (%) (Auto) 77.7 % (45.0-75.0) H Lymphocytes (%) (Auto) 16.7 % (20.0-45.0) L Monocytes (%) (Auto) 2.3 % (1.0-10.0) Eosinophils (%) (Auto) 3.1 % (0.0-3.0) H Basophils (%) (Auto) 0.3 % (0.0-2.0) Sodium Level 143 MMOL/L (136-145) Potassium Level 2.6 MMOL/L (3.5-5.1) *L Chloride Level 108 MMOL/L (98-107) H Carbon Dioxide Level 25 MMOL/L (21-32) Anion Gap 10 mmol/L (5-15) Blood Urea Nitrogen 9 mg/dL (7-18) Creatinine 0.7 MG/DL (0.55-1.30) Estimat Glomerular Filtration Rate > 60 mL/min (>60) Glucose Level 229 MG/DL (74-106) H Calcium Level 7.4 MG/DL (8.5-10.1) L Phosphorus Level 3.5 MG/DL (2.5-4.9) Magnesium Level 2.0 MG/DL (1.8-2.4) Iron Level 18 ug/dL (50-175) L Total Iron Binding Capacity 125 ug/dL (250-450) L Percent Iron Saturation 14 % (15-50) L Unsaturated Iron Binding 107 ug/dL (112-346) L Ferritin 489 NG/ML (8-388) H Total Bilirubin 0.3 MG/DL (0.2-1.0) Aspartate Amino Transf (AST/SGOT) 25 U/L (15-37) Alanine Aminotransferase (ALT/SGPT) 32 U/L (12-78) Alkaline Phosphatase 91 U/L (46-116) Total Protein 5.2 G/DL (6.4-8.2) L Albumin 1.3 G/DL (3.4-5.0) L Globulin 3.9 g/dL Albumin/Globulin Ratio 0.3 (1.0-2.7) L Current Medications Medications (Trade) Dose Ordered Sig/Esequiel Route PRN Reason Start Time Stop Time Status Last Admin Dose Admin Acetaminophen (Tylenol) 650 mg Q4H PRN GT Mild Pain (Pain Scale 1-3) 12/15/19 20:00 01/10/20 19:59 12/19/19 04:34 Acetaminophen (Tylenol) 650 mg Q4H PRN RECTAL Mild Pain (Pain Scale 1-3) 12/15/19 20:00 01/10/20 19:59 12/16/19 21:54 Chlorhexidine Gluconate (Bijal-Hex 2%) 1 applic DAILY@2000 TOPIC 12/15/19 20:00 03/11/20 19:59 12/18/19 20:48 Dextrose (Dextrose 50%) 25 ml Q30M PRN IV Hypoglycemia 12/15/19 20:00 03/12/20 01:59 Dextrose (Dextrose 50%) 50 ml Q30M PRN IV Hypoglycemia 12/15/19 20:00 03/12/20 01:59 Dextrose/ Electrolytes 1,000 ml @ 50 mls/hr Q20H IV 12/19/19 10:00 01/18/20 09:59 12/19/19 10:03 Insulin Aspart (NovoLOG) Q4HR SUBQ 12/15/19 21:00 03/12/20 04:59 12/19/19 09:42 Insulin Detemir (Levemir) 15 units BID SUBQ 12/19/19 18:00 03/12/20 08:59 Metoclopramide HCl (Reglan) 5 mg EVERY 8 HOURS IVP 12/15/19 22:00 01/11/20 13:59 12/19/19 05:02 Ondansetron HCl (Zofran) 4 mg Q6H PRN IVP Nausea & Vomiting 12/15/19 20:00 01/10/20 19:59 Pantoprazole (Protonix) 40 mg EVERY 12 HOURS IVP 12/15/19 21:00 01/11/20 08:59 12/19/19 09:07 Piperacillin Sod/ Tazobactam Sod 3.375 gm/Dextrose 110 ml @ 27.5 mls/hr Q8H IVPB 12/17/19 17:00 12/22/19 23:59 12/19/19 09:09 Potassium Chloride 100 ml @ 50 mls/hr Q3HR IVPB 12/19/19 09:00 12/19/19 16:59 12/19/19 11:49 Potassium Chloride (K-Dur) 40 meq TID ORAL 12/19/19 09:00 03/17/20 08:59 12/19/19 09:08 Spironolactone (Aldactone) 25 mg BID ORAL 12/18/19 11:00 01/17/20 10:59 12/19/19 09:07 Brandin Ochoa MD December 19, 2019 12:15
[2019-12-19] MEDS: Lactobacillus-GG tablet NG SCH ×2 (14:01→18:22)
--- NOTE | 2019-12-19 14:25 | Surgery Progress Note ---
Surgery Progress Note Subjective Additional Comments leukocytosis trending down labs noted exam stable comfortable appearing Objective Last 24 Hour Vital Signs Date Time Temp Pulse Resp B/P (MAP) Pulse Ox O2 Delivery O2 Flow Rate FiO2 12/19/19 11:59 98.1 99 20 125/73 (90) 96 12/19/19 11:38 101 12/19/19 08:00 97.9 100 23 116/70 (85) 100 12/19/19 08:00 Nasal Cannula 2.0 12/19/19 07:44 91 12/19/19 05:04 98.8 12/19/19 04:00 95 12/19/19 04:00 98.8 102 23 132/71 (91) 100 12/19/19 03:50 Nasal Cannula 4.0 12/19/19 00:00 Nasal Cannula 4.0 12/19/19 00:00 105 12/19/19 00:00 99.5 104 25 139/79 (99) 98 12/18/19 20:00 Nasal Cannula 4.0 12/18/19 20:00 100.5 101 24 128/76 (93) 98 12/18/19 19:26 92 12/18/19 16:00 Nasal Cannula 4.0 12/18/19 16:00 98.8 74 18 104/56 (72) 99 12/18/19 15:25 93 I&O Intake and Output 12/18/19 12/19/19 19:00 07:00 Intake Total 942.5 ml 658.75 ml Output Total 500 ml 1400 ml Balance 442.5 ml -741.25 ml Intake Oral 30 ml IV Total 912.5 ml 648.75 ml Tube Feeding 10 ml Output Urine Total 500 ml 1400 ml # Voids 1 # Bowel Movements 5 2 Cardiovascular: RSR Respiratory: decreased breath sounds Abdomen: soft, non-tender, present bowel sounds Extremities: no cyanosis Laboratory Tests Test 12/19/19 03:00 White Blood Count 15.5 K/UL (4.8-10.8) H Red Blood Count 2.77 M/UL (4.20-5.40) L Hemoglobin 8.4 G/DL (12.0-16.0) L Hematocrit 24.4 % (37.0-47.0) L Mean Corpuscular Volume 88 FL (80-99) Mean Corpuscular Hemoglobin 30.5 PG (27.0-31.0) Mean Corpuscular Hemoglobin Concent 34.6 G/DL (32.0-36.0) Red Cell Distribution Width 12.4 % (11.6-14.8) Platelet Count 179 K/UL (150-450) Mean Platelet Volume 7.3 FL (6.5-10.1) Neutrophils (%) (Auto) 77.7 % (45.0-75.0) H Lymphocytes (%) (Auto) 16.7 % (20.0-45.0) L Monocytes (%) (Auto) 2.3 % (1.0-10.0) Eosinophils (%) (Auto) 3.1 % (0.0-3.0) H Basophils (%) (Auto) 0.3 % (0.0-2.0) Sodium Level 143 MMOL/L (136-145) Potassium Level 2.6 MMOL/L (3.5-5.1) *L Chloride Level 108 MMOL/L (98-107) H Carbon Dioxide Level 25 MMOL/L (21-32) Anion Gap 10 mmol/L (5-15) Blood Urea Nitrogen 9 mg/dL (7-18) Creatinine 0.7 MG/DL (0.55-1.30) Estimat Glomerular Filtration Rate > 60 mL/min (>60) Glucose Level 229 MG/DL (74-106) H Calcium Level 7.4 MG/DL (8.5-10.1) L Phosphorus Level 3.5 MG/DL (2.5-4.9) Magnesium Level 2.0 MG/DL (1.8-2.4) Iron Level 18 ug/dL (50-175) L Total Iron Binding Capacity 125 ug/dL (250-450) L Percent Iron Saturation 14 % (15-50) L Unsaturated Iron Binding 107 ug/dL (112-346) L Ferritin 489 NG/ML (8-388) H Total Bilirubin 0.3 MG/DL (0.2-1.0) Aspartate Amino Transf (AST/SGOT) 25 U/L (15-37) Alanine Aminotransferase (ALT/SGPT) 32 U/L (12-78) Alkaline Phosphatase 91 U/L (46-116) Total Protein 5.2 G/DL (6.4-8.2) L Albumin 1.3 G/DL (3.4-5.0) L Globulin 3.9 g/dL Albumin/Globulin Ratio 0.3 (1.0-2.7) L Plan Problems: (1) Cardiac arrest (2) DKA (diabetic ketoacidoses) (3) Respiratory distress (4) Altered mental status (5) Coffee ground emesis Assessment & Plan: Coffee-ground emesis concerning for GI bleed. Transfuse PRBC now stable. No acute active bleeding noted. Discussed with GI. Will follow with recommendations hold on acute surgical intervention (6) High serum creatine (7) High blood urea nitrogen (BUN) (8) Abnormal TSH (9) DEANDRA (acute kidney injury) (10) Hypotension (11) Electrolyte imbalance (12) Hyperkalemia (13) Deep tissue injury Assessment & Plan: Patient identified to have a sacral deep tissue injury. No areas of open skin. No signs of acute active infection. Patient critically ill intensive care unit on support slowly making a recovery. Will make all times prevention as well as initiate care plan for healing. Turn every 2 hours. Skin protectant OPTi foam dressing. Offload heels with pillows. Will monitor closely. Great nursing care being provided. Nutritional optimization DAILY ESTIMATED NEEDS: Needs based on DM, pulmonary 65.5kg 25-30 kcals/kg 8981-4378 total kcals 1-1.5 g protein/kg 66-98 g total protein 25-30 mL/kg 0463-1330 total fluid mLs NUTRITION DIAGNOSIS: Swallowing difficulty r/t Cardiopulmonary arrest as evidenced by pt now orally intubated, ICU, adm w/ DKA, now on pressor support x3- now s/p extubation, pending SHIP RIGGER eval. CURRENT TF: NPO PO DIET RECOMMENDATIONS: [facility]/ TEXTURE PER SHIP RIGGER ADDITIONAL RECOMMENDATIONS: 1) Diet recs as above, SHIP RIGGER eval pending 2) Maintain calibrated bed scale wts 3) Replete lytes as needed 4) Add Glucerna w/ poor po intake Enrrique Martins December 19, 2019 14:25
[2019-12-19] MEDS ORDERED: NS 275ml ONE (14:48)
[2019-12-19 16:00] VITALS: BP 140/84
--- NOTE | 2019-12-19 16:23 | Diagnostic Imaging Report ---
EXAM: XR Abdomen, 1 view CLINICAL HISTORY: NGT TECHNIQUE: Frontal view of the abdomen/pelvis. COMPARISON: Abdominal x-rays obtained earlier on 12/19/19 at 2:53 AM FINDINGS: Intraperitoneal space: No free air. Gastrointestinal tract: Unremarkable. Unremarkable bowel gas pattern. No abnormal distention of large or small bowel loops. No luminal air fluid levels. No evidence of pneumatosis intestinalis. Organs: Multiple tiny radiodense gallstones. Bones/joints: Mild degenerative changes in the lumbosacral junction. Tubes, lines and devices: NG tube tip in the expected region of the stomach body. Telemetry leads overlie the lower thorax and upper abdomen. IMPRESSION: 1. NG tube tip in the expected region of the stomach body. 2. Multiple tiny radiodense gallstones.
--- NOTE | 2019-12-19 16:38 | Cardiac Electrophysiology PN ---
Assessment/Plan Assessment/Plan 1. S/P Septic shock. Off pressors. EF 60%. EKG shows sinus tachycardia with no acute ST-T wave abnormalities. Already on broad-spectrum IV antibiotic 2. S/P Respiratory failure, Extubated 3. Hypotension. Resolved 4. Coffee-ground emesis. S/P 2 units of PRBC 5. S/P Diabetic ketoacidosis 6. Persistent hypokalemia. Replaced again by Dr Ventura 7. Failed swallow eval. Now has NG tube MICAELA RN Subjective Subjective NGT feeding started as seemed like she was aspirating with food. Objective Last 24 Hour Vital Signs Date Time Temp Pulse Resp B/P (MAP) Pulse Ox O2 Delivery O2 Flow Rate FiO2 12/19/19 15:21 104 12/19/19 12:00 Nasal Cannula 2.0 12/19/19 11:59 98.1 99 20 125/73 (90) 96 12/19/19 11:38 101 12/19/19 08:00 97.9 100 23 116/70 (85) 100 12/19/19 08:00 Nasal Cannula 2.0 12/19/19 07:44 91 12/19/19 05:04 98.8 12/19/19 04:00 95 12/19/19 04:00 98.8 102 23 132/71 (91) 100 12/19/19 03:50 Nasal Cannula 4.0 12/19/19 00:00 Nasal Cannula 4.0 12/19/19 00:00 105 12/19/19 00:00 99.5 104 25 139/79 (99) 98 12/18/19 20:00 Nasal Cannula 4.0 12/18/19 20:00 100.5 101 24 128/76 (93) 98 12/18/19 19:26 92 Intake and Output 12/18/19 12/19/19 19:00 07:00 Intake Total 942.5 ml 658.75 ml Output Total 500 ml 1400 ml Balance 442.5 ml -741.25 ml Intake Oral 30 ml IV Total 912.5 ml 648.75 ml Tube Feeding 10 ml Output Urine Total 500 ml 1400 ml # Voids 1 # Bowel Movements 5 2 Laboratory Tests Test 12/19/19 03:00 White Blood Count 15.5 K/UL (4.8-10.8) H Red Blood Count 2.77 M/UL (4.20-5.40) L Hemoglobin 8.4 G/DL (12.0-16.0) L Hematocrit 24.4 % (37.0-47.0) L Mean Corpuscular Volume 88 FL (80-99) Mean Corpuscular Hemoglobin 30.5 PG (27.0-31.0) Mean Corpuscular Hemoglobin Concent 34.6 G/DL (32.0-36.0) Red Cell Distribution Width 12.4 % (11.6-14.8) Platelet Count 179 K/UL (150-450) Mean Platelet Volume 7.3 FL (6.5-10.1) Neutrophils (%) (Auto) 77.7 % (45.0-75.0) H Lymphocytes (%) (Auto) 16.7 % (20.0-45.0) L Monocytes (%) (Auto) 2.3 % (1.0-10.0) Eosinophils (%) (Auto) 3.1 % (0.0-3.0) H Basophils (%) (Auto) 0.3 % (0.0-2.0) Sodium Level 143 MMOL/L (136-145) Potassium Level 2.6 MMOL/L (3.5-5.1) *L Chloride Level 108 MMOL/L (98-107) H Carbon Dioxide Level 25 MMOL/L (21-32) Anion Gap 10 mmol/L (5-15) Blood Urea Nitrogen 9 mg/dL (7-18) Creatinine 0.7 MG/DL (0.55-1.30) Estimat Glomerular Filtration Rate > 60 mL/min (>60) Glucose Level 229 MG/DL (74-106) H Calcium Level 7.4 MG/DL (8.5-10.1) L Phosphorus Level 3.5 MG/DL (2.5-4.9) Magnesium Level 2.0 MG/DL (1.8-2.4) Iron Level 18 ug/dL (50-175) L Total Iron Binding Capacity 125 ug/dL (250-450) L Percent Iron Saturation 14 % (15-50) L Unsaturated Iron Binding 107 ug/dL (112-346) L Ferritin 489 NG/ML (8-388) H Total Bilirubin 0.3 MG/DL (0.2-1.0) Aspartate Amino Transf (AST/SGOT) 25 U/L (15-37) Alanine Aminotransferase (ALT/SGPT) 32 U/L (12-78) Alkaline Phosphatase 91 U/L (46-116) Total Protein 5.2 G/DL (6.4-8.2) L Albumin 1.3 G/DL (3.4-5.0) L Globulin 3.9 g/dL Albumin/Globulin Ratio 0.3 (1.0-2.7) L Objective HEAD AND NECK: No JVD LUNGS: Coarse rhonchi. CARDIOVASCULAR: Irregular S1-S2 and tachycardic. ABDOMEN: Soft. EXTREMITIES: No pitting edema. Gerardo Dyer MD December 19, 2019 16:38
--- NOTE | 2019-12-19 18:48 | General Progress Note ---
Assessment/Plan Assessment/Plan: Assessment - possible aspiration risk - Rising WBC noted - Dark stools / GIB - Azotemia - DKA - AMS - s/p arrest - guarded Recommendations - PO diet on hold - NGT --> TF - Monitor H&H - PPI - transfuse PRN - replace K Subjective Allergies: Coded Allergies: No Known Allergies (Unverified , 12/11/19) Subjective Above noted OGT / NGT noted npo due to aspiration concerns K low today Objective Last 24 Hour Vital Signs Date Time Temp Pulse Resp B/P (MAP) Pulse Ox O2 Delivery O2 Flow Rate FiO2 12/19/19 16:00 98.6 100 20 140/84 (102) 98 12/19/19 16:00 Nasal Cannula 2.0 12/19/19 15:21 104 12/19/19 12:00 Nasal Cannula 2.0 12/19/19 11:59 98.1 99 20 125/73 (90) 96 12/19/19 11:38 101 12/19/19 08:00 97.9 100 23 116/70 (85) 100 12/19/19 08:00 Nasal Cannula 2.0 12/19/19 07:44 91 12/19/19 05:04 98.8 12/19/19 04:00 95 12/19/19 04:00 98.8 102 23 132/71 (91) 100 12/19/19 03:50 Nasal Cannula 4.0 12/19/19 00:00 Nasal Cannula 4.0 12/19/19 00:00 105 12/19/19 00:00 99.5 104 25 139/79 (99) 98 12/18/19 20:00 Nasal Cannula 4.0 12/18/19 20:00 100.5 101 24 128/76 (93) 98 12/18/19 19:26 92 Intake and Output 12/18/19 12/19/19 19:00 07:00 Intake Total 942.5 ml 658.75 ml Output Total 500 ml 1400 ml Balance 442.5 ml -741.25 ml Intake Oral 30 ml IV Total 912.5 ml 648.75 ml Tube Feeding 10 ml Output Urine Total 500 ml 1400 ml # Voids 1 # Bowel Movements 5 2 Laboratory Tests 12/19/19 03:00: White Blood Count 15.5H, Red Blood Count 2.77L, Hemoglobin 8.4L, Hematocrit 24.4L, Mean Corpuscular Volume 88, Mean Corpuscular Hemoglobin 30.5, Mean Corpuscular Hemoglobin Concent 34.6, Red Cell Distribution Width 12.4, Platelet Count 179, Mean Platelet Volume 7.3, Neutrophils (%) (Auto) 77.7H, Lymphocytes ( %) (Auto) 16.7L, Monocytes (%) (Auto) 2.3, Eosinophils (%) (Auto) 3.1H, Basophils (%) (Auto) 0.3, Sodium Level 143, Potassium Level 2.6*L, Chloride Level 108H, Carbon Dioxide Level 25, Anion Gap 10, Blood Urea Nitrogen 9, Creatinine 0.7, Estimat Glomerular Filtration Rate > 60, Glucose Level 229H, Calcium Level 7.4L, Phosphorus Level 3.5, Magnesium Level 2.0, Iron Level 18L, Total Iron Binding Capacity 125L, Percent Iron Saturation 14L, Unsaturated Iron Binding 107L, Ferritin 489H, Total Bilirubin 0.3, Aspartate Amino Transf (AST/ SGOT) 25, Alanine Aminotransferase (ALT/SGPT) 32, Alkaline Phosphatase 91, Total Protein 5.2L, Albumin 1.3L, Globulin 3.9, Albumin/Globulin Ratio 0.3L Height (Feet): 5 Height (Inches): 5.00 Weight (Pounds): 163 Objective Debilitated WW NCAT supple Coarse BS RR abd soft Jennifer Oliva MD December 19, 2019 18:48
[2019-12-19 20:00] VITALS: BP 136/71
[2019-12-19] MEDS: Dyna-Hex 2% Top Sol 2oz TOPIC SCH (20:00)
[2019-12-20] VITALS: BP_SYST 114; BP_SYST 136; BP_DIAS 65; BP_DIAS 67
[2019-12-20] MEDS: Piperacillin/Tazobactam 3.375 GM in D5W 110 ML IVPB SCH ×2 (00:29→08:53)
[2019-12-20] MEDS: NovoLOG Insulin Flexpen SUBQ SCH ×7 (00:30→23:03)
--- NOTE | 2019-12-20 01:00 | Progress Note ---
DATE: 12/19/2019 SUBJECTIVE: This is an elderly 58-year-old female, currently more awake in the bed, comfortable, failed the swallow eval. placed. The patient tolerating. OBJECTIVE: VITAL SIGNS: Blood pressure is 125/73, pulse 99, respirations 20. No fever. CHEST: Bilateral few crackles. CARDIOVASCULAR: Regular rhythm. No gallop. No murmur. ABDOMEN: Soft. EXTREMITIES: CCE. NEUROLOGICAL: Generalized weakness. LABORATORY DATA: White counts are 16,000, hemoglobin 8.4, hematocrit 88, platelets are 179,000. Chemistry panel, potassium is 2.6, KCl replaced. Microbiology, the patient has COVID. Final results are so far not detected. ASSESSMENT AND PLAN: 1. Acute cardiopulmonary arrest. 2. Hypokalemia. 3. Dysphagia. 4. Mild metabolic encephalopathy. 5. Continue current medical treatment. The patient is currently on insulin, Levemir sliding scale. Replace the potassium. Spironolactone. Continue Zosyn. ID is on consult. Frank Pinzon M.D. DR: AMADOR JOB#: [id number] CC:
[2019-12-20 04:00] VITALS: BP 116/68
[2019-12-20] MEDS: D5 1/2NS w/KCl 40meq 1000ml 1,000 ML IV SCH ×2 (04:00→22:31)
[2019-12-20 06:01] LABS: HEMATOCRIT 22.6 % (37.0-47.0); HEMOGLOBIN 7.8 G/DL (12.0-16.0); MEAN CORPUSCULAR VOLUME 89 FL (80-99); PLATELET COUNT 215 K/UL (150-450); RED BLOOD COUNT 2.54 M/UL (4.20-5.40); RED CELL DISTRIBUTION WIDTH 12.7 % (11.6-14.8); WHITE BLOOD COUNT 10.9 K/UL (4.8-10.8)
[2019-12-20 06:28] LABS: ALANINE AMINOTRANSFERASE 27 U/L (12-78); ALBUMIN 1.1 G/DL (3.4-5.0); ALBUMIN/GLOBULIN RATIO 0.3 (1.0-2.7); ALKALINE PHOSPHATASE 74 U/L (46-116); ANION GAP 7 mmol/L (5-15); ASPARTATE AMINO TRANSFERASE 21 U/L (15-37); BILIRUBIN,TOTAL 0.2 MG/DL (0.2-1.0); BLOOD UREA NITROGEN 5 mg/dL (7-18); CALCIUM 7.8 MG/DL (8.5-10.1); CARBON DIOXIDE 27 MMOL/L (21-32); CHLORIDE 110 MMOL/L (98-107); CREATININE 0.8 MG/DL (0.55-1.30); PHOSPHORUS 2.5 MG/DL (2.5-4.9); POTASSIUM 3.7 MMOL/L (3.5-5.1); SODIUM 144 MMOL/L (136-145)
--- NOTE | 2019-12-20 07:24 | General Progress Note ---
Assessment/Plan Problem List: (1) Coffee ground emesis ICD Codes: K92.0 - Hematemesis SNOMED: 59252962 (2) High blood urea nitrogen (BUN) ICD Codes: R79.9 - Abnormal finding of blood chemistry, unspecified SNOMED: 598666521, 835099530 (3) High serum creatine ICD Codes: R79.89 - Other specified abnormal findings of blood chemistry SNOMED: 195508517, 414539304 (4) DKA (diabetic ketoacidoses) ICD Codes: E11.10 - Type 2 diabetes mellitus with ketoacidosis without coma SNOMED: 107580123, 04484439 Qualifiers: Qualified Codes: E13.11 - Other specified diabetes mellitus with ketoacidosis with coma (5) Altered mental status ICD Codes: R41.82 - Altered mental status, unspecified SNOMED: 242378049, 23055676 Qualifiers: Qualified Codes: R41.82 - Altered mental status, unspecified (6) Cardiac arrest ICD Codes: I46.9 - Cardiac arrest, cause unspecified SNOMED: 278025148 (7) Respiratory distress ICD Codes: R06.03 - Acute respiratory distress SNOMED: 170536046 Assessment/Plan: s/p 2 units prbc in this admission positive stool ob x1 ppi iv BID monitor H&H transfuse to keep HGB above 7.5 NGTF D/W the nurse plan repeat swallow for tomorrow + diarrhea>>> pending C.diff will fu Subjective ROS Limited/Unobtainable: No Allergies: Coded Allergies: No Known Allergies (Unverified , 12/11/19) Objective Last 24 Hour Vital Signs Date Time Temp Pulse Resp B/P (MAP) Pulse Ox O2 Delivery O2 Flow Rate FiO2 12/20/19 04:00 Nasal Cannula 2.0 12/20/19 04:00 97.8 104 18 116/68 (84) 99 12/20/19 03:34 106 12/20/19 00:00 Nasal Cannula 2.0 12/20/19 00:00 100 12/20/19 00:00 98.2 96 18 114/67 (83) 98 12/19/19 20:30 99.0 12/19/19 20:08 110 12/19/19 20:00 Nasal Cannula 2.0 12/19/19 20:00 99.6 106 18 136/71 (92) 98 12/19/19 16:00 98.6 100 20 140/84 (102) 98 12/19/19 16:00 Nasal Cannula 2.0 12/19/19 15:21 104 12/19/19 12:00 Nasal Cannula 2.0 12/19/19 11:59 98.1 99 20 125/73 (90) 96 12/19/19 11:38 101 12/19/19 08:00 97.9 100 23 116/70 (85) 100 12/19/19 08:00 Nasal Cannula 2.0 12/19/19 07:44 91 Intake and Output 12/19/19 12/20/19 19:00 07:00 Intake Total 1102.5 ml 1039.55 ml Output Total 1250 ml 800 ml Balance -147.5 ml 239.55 ml Free Water 200 ml 50 ml IV Total 762.5 ml 709.55 ml Tube Feeding 140 ml 280 ml Output Urine Total 1250 ml 800 ml # Bowel Movements 5 2 Laboratory Tests 12/20/19 05:00: White Blood Count 10.9H, Red Blood Count 2.54L, Hemoglobin 7.8L, Hematocrit 22.6L, Mean Corpuscular Volume 89, Mean Corpuscular Hemoglobin 30.7, Mean Corpuscular Hemoglobin Concent 34.5, Red Cell Distribution Width 12.7, Platelet Count 215, Mean Platelet Volume 6.9, Neutrophils (%) (Auto) , Lymphocytes (%) ( Auto) , Monocytes (%) (Auto) , Eosinophils (%) (Auto) , Basophils (%) (Auto) , Sodium Level 144, Potassium Level 3.7, Chloride Level 110H, Carbon Dioxide Level 27, Anion Gap 7, Blood Urea Nitrogen 5L, Creatinine 0.8, Estimat Glomerular Filtration Rate > 60, Glucose Level 261H, Calcium Level 7.8L, Phosphorus Level 2.5, Magnesium Level 1.9, Total Bilirubin 0.2, Aspartate Amino Transf (AST/SGOT) 21, Alanine Aminotransferase (ALT/SGPT) 27, Alkaline Phosphatase 74, C-Reactive Protein, Quantitative 12.1H, Pro-B-Type Natriuretic Peptide 683H, Total Protein 5.1L, Albumin 1.1L, Globulin 4.0, Albumin/Globulin Ratio 0.3L Height (Feet): 5 Height (Inches): 5.00 Weight (Pounds): 162 General Appearance: lethargic EENT: normal ENT inspection Neck: supple Cardiovascular: tachycardia Respiratory/Chest: decreased breath sounds Abdomen: normal bowel sounds, non tender, soft Extremities: non-tender Maykel Stephen MD December 20, 2019 07:24
--- NOTE | 2019-12-20 07:55 | General Progress Note ---
Assessment/Plan Problem List: (1) DKA (diabetic ketoacidoses) ICD Codes: E11.10 - Type 2 diabetes mellitus with ketoacidosis without coma SNOMED: 971989953, 53735548 Qualifiers: Qualified Codes: E13.11 - Other specified diabetes mellitus with ketoacidosis with coma (2) Cardiac arrest ICD Codes: I46.9 - Cardiac arrest, cause unspecified SNOMED: 681790532 (3) Coffee ground emesis ICD Codes: K92.0 - Hematemesis SNOMED: 74800219 (4) Abnormal TSH ICD Codes: R79.89 - Other specified abnormal findings of blood chemistry SNOMED: 541593980 Assessment/Plan: continue Levemir 15 units bid continue Novolog sliding scale every 4 hours thyroid function studies suggestive of "sick euthyroid" no need for thyroid medications repeat thyroid function in 1-2 weeks Subjective ROS Limited/Unobtainable: Yes Allergies: Coded Allergies: No Known Allergies (Unverified , 12/11/19) Subjective events noted glucose values improved on TF at 30 cc/hour Item Value Date Time Bedside Blood Glucose 164 mg/dl H 12/20/19 0405 Bedside Blood Glucose 126 mg/dl H 12/20/19 0030 Bedside Blood Glucose 140 mg/dl H 12/19/19 2100 Bedside Blood Glucose 155 mg/dl H 12/19/19 1822 Bedside Blood Glucose 211 mg/dl H 12/19/19 1422 Objective Last 24 Hour Vital Signs Date Time Temp Pulse Resp B/P (MAP) Pulse Ox O2 Delivery O2 Flow Rate FiO2 12/20/19 04:00 Nasal Cannula 2.0 12/20/19 04:00 97.8 104 18 116/68 (84) 99 12/20/19 03:34 106 12/20/19 00:00 Nasal Cannula 2.0 12/20/19 00:00 100 12/20/19 00:00 98.2 96 18 114/67 (83) 98 12/19/19 20:30 99.0 12/19/19 20:08 110 12/19/19 20:00 Nasal Cannula 2.0 12/19/19 20:00 99.6 106 18 136/71 (92) 98 12/19/19 16:00 98.6 100 20 140/84 (102) 98 12/19/19 16:00 Nasal Cannula 2.0 12/19/19 15:21 104 5/24/20 12:00 Nasal Cannula 2.0 12/19/19 11:59 98.1 99 20 125/73 (90) 96 12/19/19 11:38 101 12/19/19 08:00 97.9 100 23 116/70 (85) 100 12/19/19 08:00 Nasal Cannula 2.0 Intake and Output 12/19/19 12/20/19 19:00 07:00 Intake Total 1102.5 ml 1039.55 ml Output Total 1250 ml 800 ml Balance -147.5 ml 239.55 ml Free Water 200 ml 50 ml IV Total 762.5 ml 709.55 ml Tube Feeding 140 ml 280 ml Output Urine Total 1250 ml 800 ml # Bowel Movements 5 2 Laboratory Tests 12/20/19 05:00: White Blood Count 10.9H, Red Blood Count 2.54L, Hemoglobin 7.8L, Hematocrit 22.6L, Mean Corpuscular Volume 89, Mean Corpuscular Hemoglobin 30.7, Mean Corpuscular Hemoglobin Concent 34.5, Red Cell Distribution Width 12.7, Platelet Count 215, Mean Platelet Volume 6.9, Neutrophils (%) (Auto) , Lymphocytes (%) ( Auto) , Monocytes (%) (Auto) , Eosinophils (%) (Auto) , Basophils (%) (Auto) , Sodium Level 144, Potassium Level 3.7, Chloride Level 110H, Carbon Dioxide Level 27, Anion Gap 7, Blood Urea Nitrogen 5L, Creatinine 0.8, Estimat Glomerular Filtration Rate > 60, Glucose Level 261H, Calcium Level 7.8L, Phosphorus Level 2.5, Magnesium Level 1.9, Total Bilirubin 0.2, Aspartate Amino Transf (AST/SGOT) 21, Alanine Aminotransferase (ALT/SGPT) 27, Alkaline Phosphatase 74, C-Reactive Protein, Quantitative 12.1H, Pro-B-Type Natriuretic Peptide 683H, Total Protein 5.1L, Albumin 1.1L, Globulin 4.0, Albumin/Globulin Ratio 0.3L Height (Feet): 5 Height (Inches): 5.00 Weight (Pounds): 162 General Appearance: no apparent distress Neck: normal alignment Cardiovascular: regular rhythm Respiratory/Chest: decreased breath sounds Abdomen: normal bowel sounds Objective Current Medications Medications (Trade) Dose Ordered Sig/Esequiel Route PRN Reason Start Time Stop Time Status Last Admin Dose Admin Acetaminophen (Tylenol) 650 mg Q4H PRN GT Mild Pain (Pain Scale 1-3) 12/15/19 20:00 01/10/20 19:59 12/19/19 20:00 Acetaminophen (Tylenol) 650 mg Q4H PRN RECTAL Mild Pain (Pain Scale 1-3) 12/15/19 20:00 01/10/20 19:59 12/16/19 21:54 Chlorhexidine Gluconate (Bijal-Hex 2%) 1 applic DAILY@2000 TOPIC 12/15/19 20:00 03/11/20 19:59 12/19/19 20:00 Dextrose (Dextrose 50%) 25 ml Q30M PRN IV Hypoglycemia 12/15/19 20:00 03/12/20 01:59 Dextrose (Dextrose 50%) 50 ml Q30M PRN IV Hypoglycemia 12/15/19 20:00 03/12/20 01:59 Dextrose/ Electrolytes 1,000 ml @ 50 mls/hr Q20H IV 12/19/19 10:00 01/18/20 09:59 12/20/19 04:00 Insulin Aspart (NovoLOG) Q4HR SUBQ 12/15/19 21:00 03/12/20 04:59 12/20/19 04:05 Insulin Detemir (Levemir) 15 units BID SUBQ 12/19/19 18:00 03/12/20 08:59 12/19/19 18:22 Iron Sucrose 100 mg/Sodium Chloride 60 ml @ 240 mls/hr BEDTIME IVPB 12/20/19 21:00 12/24/19 21:14 Lactobacillus Acidophilus (Culturelle) 1 tab THREE TIMES A DAY NG 12/19/19 13:00 03/18/20 12:59 12/19/19 18:22 Ondansetron HCl (Zofran) 4 mg Q6H PRN IVP Nausea & Vomiting 12/15/19 20:00 01/10/20 19:59 Pantoprazole (Protonix) 40 mg EVERY 12 HOURS IVP 12/15/19 21:00 01/11/20 08:59 12/19/19 20:00 Piperacillin Sod/ Tazobactam Sod 3.375 gm/Dextrose 110 ml @ 27.5 mls/hr Q8H IVPB 12/17/19 17:00 12/22/19 23:59 12/20/19 00:29 Potassium Chloride (K-Dur) 40 meq TID ORAL 12/19/19 09:00 03/17/20 08:59 12/19/19 18:22 Spironolactone (Aldactone) 25 mg BID ORAL 12/18/19 11:00 01/17/20 10:59 12/19/19 18:22 Stef Ortega MD December 20, 2019 07:55
[2019-12-20 08:00] VITALS: BP 126/79
[2019-12-20] MEDS: Lactobacillus-GG tablet NG SCH ×3 (08:33→17:33)
[2019-12-20] MEDS: Pantoprazole Inj IVP SCH ×2 (08:33→20:51)
[2019-12-20] MEDS: Spironolactone 25mg tab ORAL SCH ×2 (08:34→17:33)
[2019-12-20] MEDS: Levemir Flexpen SUBQ SCH ×2 (08:48→18:12)
--- NOTE | 2019-12-20 09:46 | Infectious Diseases Prog Note ---
Assessment/Plan Assessment/Plan antibiotics : zosyn A 1. pneumonia COVID 19 test negative 2. Diabetic ketoacidosis resolving 3. Renal failure resolved 4. Leukocytosis resolved PLAN: 1. d/c Zosyn. 2. will follow up cultures 3. observe off antibiotics Subjective ROS Limited/Unobtainable: Yes Allergies: Coded Allergies: No Known Allergies (Unverified , 12/11/19) Objective Vital Signs Last 24 Hour Vital Signs Date Time Temp Pulse Resp B/P (MAP) Pulse Ox O2 Delivery O2 Flow Rate FiO2 12/20/19 08:00 99.1 107 20 126/79 (95) 97 12/20/19 04:00 Nasal Cannula 2.0 12/20/19 04:00 97.8 104 18 116/68 (84) 99 12/20/19 03:34 106 12/20/19 00:00 Nasal Cannula 2.0 12/20/19 00:00 100 12/20/19 00:00 98.2 96 18 114/67 (83) 98 12/19/19 20:30 99.0 12/19/19 20:08 110 12/19/19 20:00 Nasal Cannula 2.0 12/19/19 20:00 99.6 106 18 136/71 (92) 98 12/19/19 16:00 98.6 100 20 140/84 (102) 98 12/19/19 16:00 Nasal Cannula 2.0 12/19/19 15:21 104 12/19/19 12:00 Nasal Cannula 2.0 12/19/19 11:59 98.1 99 20 125/73 (90) 96 12/19/19 11:38 101 Height (Feet): 5 Height (Inches): 5.00 Weight (Pounds): 162 Respiratory/Chest: lungs clear Cardiovascular: normal rate, regular rhythm, no gallop/murmur Abdomen: soft, non tender Extremities: no edema Microbiology Date/Time Source Procedure Growth Status 12/19/19 11:30 Stool Clostridium difficile Toxin Assay - Final Complete Laboratory Tests Test 12/20/19 05:00 White Blood Count 10.9 K/UL (4.8-10.8) H Red Blood Count 2.54 M/UL (4.20-5.40) L Hemoglobin 7.8 G/DL (12.0-16.0) L Hematocrit 22.6 % (37.0-47.0) L Mean Corpuscular Volume 89 FL (80-99) Mean Corpuscular Hemoglobin 30.7 PG (27.0-31.0) Mean Corpuscular Hemoglobin Concent 34.5 G/DL (32.0-36.0) Red Cell Distribution Width 12.7 % (11.6-14.8) Platelet Count 215 K/UL (150-450) Mean Platelet Volume 6.9 FL (6.5-10.1) Neutrophils (%) (Auto) % (45.0-75.0) Lymphocytes (%) (Auto) % (20.0-45.0) Monocytes (%) (Auto) % (1.0-10.0) Eosinophils (%) (Auto) % (0.0-3.0) Basophils (%) (Auto) % (0.0-2.0) Sodium Level 144 MMOL/L (136-145) Potassium Level 3.7 MMOL/L (3.5-5.1) Chloride Level 110 MMOL/L (98-107) H Carbon Dioxide Level 27 MMOL/L (21-32) Anion Gap 7 mmol/L (5-15) Blood Urea Nitrogen 5 mg/dL (7-18) L Creatinine 0.8 MG/DL (0.55-1.30) Estimat Glomerular Filtration Rate > 60 mL/min (>60) Glucose Level 261 MG/DL (74-106) H Calcium Level 7.8 MG/DL (8.5-10.1) L Phosphorus Level 2.5 MG/DL (2.5-4.9) Magnesium Level 1.9 MG/DL (1.8-2.4) Total Bilirubin 0.2 MG/DL (0.2-1.0) Aspartate Amino Transf (AST/SGOT) 21 U/L (15-37) Alanine Aminotransferase (ALT/SGPT) 27 U/L (12-78) Alkaline Phosphatase 74 U/L (46-116) C-Reactive Protein, Quantitative 12.1 mg/dL (0.00-0.90) H Pro-B-Type Natriuretic Peptide 683 pg/mL (0-125) H Total Protein 5.1 G/DL (6.4-8.2) L Albumin 1.1 G/DL (3.4-5.0) L Globulin 4.0 g/dL Albumin/Globulin Ratio 0.3 (1.0-2.7) L Current Medications Medications (Trade) Dose Ordered Sig/Esequiel Route PRN Reason Start Time Stop Time Status Last Admin Dose Admin Acetaminophen (Tylenol) 650 mg Q4H PRN GT Mild Pain (Pain Scale 1-3) 12/15/19 20:00 01/10/20 19:59 12/19/19 20:00 Acetaminophen (Tylenol) 650 mg Q4H PRN RECTAL Mild Pain (Pain Scale 1-3) 12/15/19 20:00 01/10/20 19:59 12/16/19 21:54 Chlorhexidine Gluconate (Bijal-Hex 2%) 1 applic DAILY@2000 TOPIC 12/15/19 20:00 03/11/20 19:59 12/19/19 20:00 Dextrose (Dextrose 50%) 25 ml Q30M PRN IV Hypoglycemia 12/15/19 20:00 03/12/20 01:59 Dextrose (Dextrose 50%) 50 ml Q30M PRN IV Hypoglycemia 12/15/19 20:00 03/12/20 01:59 Dextrose/ Electrolytes 1,000 ml @ 50 mls/hr Q20H IV 12/19/19 10:00 01/18/20 09:59 12/20/19 04:00 Insulin Aspart (NovoLOG) Q4HR SUBQ 12/15/19 21:00 03/12/20 04:59 12/20/19 08:47 Insulin Detemir (Levemir) 15 units BID SUBQ 12/19/19 18:00 03/12/20 08:59 12/20/19 08:48 Iron Sucrose 100 mg/Sodium Chloride 60 ml @ 240 mls/hr BEDTIME IVPB 12/20/19 21:00 12/24/19 21:14 Lactobacillus Acidophilus (Culturelle) 1 tab THREE TIMES A DAY NG 12/19/19 13:00 03/18/20 12:59 12/20/19 08:33 Ondansetron HCl (Zofran) 4 mg Q6H PRN IVP Nausea & Vomiting 12/15/19 20:00 01/10/20 19:59 Pantoprazole (Protonix) 40 mg EVERY 12 HOURS IVP 12/15/19 21:00 01/11/20 08:59 12/20/19 08:33 Piperacillin Sod/ Tazobactam Sod 3.375 gm/Dextrose 110 ml @ 27.5 mls/hr Q8H IVPB 12/17/19 17:00 12/22/19 23:59 12/20/19 08:53 Potassium Chloride (K-Dur) 40 meq TID ORAL 12/19/19 09:00 03/17/20 08:59 12/20/19 08:34 Spironolactone (Aldactone) 25 mg BID ORAL 12/18/19 11:00 01/17/20 10:59 12/20/19 08:34 Eden Salvador MD December 20, 2019 09:46
--- NOTE | 2019-12-20 10:24 | Pulmonology Progress Note ---
Subjective ROS Limited/Unobtainable: Yes Interval Events: Extubated 12/13/19; NGT in place HEENT: Repors: no symptoms Respiratory: Reports: no symptoms Cardiovascular: Reports: no symptoms Gastrointestinal/Abdominal: Reports: diarrhea, other Genitourinary: Reports: no symptoms Allergies: Coded Allergies: No Known Allergies (Unverified , 12/11/19) All Systems: reviewed and negative except above Objective Last 24 Hour Vital Signs Date Time Temp Pulse Resp B/P (MAP) Pulse Ox O2 Delivery O2 Flow Rate FiO2 12/20/19 08:00 99.1 107 20 126/79 (95) 97 12/20/19 04:00 Nasal Cannula 2.0 12/20/19 04:00 97.8 104 18 116/68 (84) 99 12/20/19 03:34 106 12/20/19 00:00 Nasal Cannula 2.0 12/20/19 00:00 100 12/20/19 00:00 98.2 96 18 114/67 (83) 98 12/19/19 20:30 99.0 12/19/19 20:08 110 12/19/19 20:00 Nasal Cannula 2.0 12/19/19 20:00 99.6 106 18 136/71 (92) 98 12/19/19 16:00 98.6 100 20 140/84 (102) 98 12/19/19 16:00 Nasal Cannula 2.0 12/19/19 15:21 104 12/19/19 12:00 Nasal Cannula 2.0 12/19/19 11:59 98.1 99 20 125/73 (90) 96 12/19/19 11:38 101 Intake and Output 12/19/19 12/20/19 19:00 07:00 Intake Total 1102.5 ml 1039.55 ml Output Total 1250 ml 800 ml Balance -147.5 ml 239.55 ml Free Water 200 ml 50 ml IV Total 762.5 ml 709.55 ml Tube Feeding 140 ml 280 ml Output Urine Total 1250 ml 800 ml # Bowel Movements 5 2 General Appearance: no acute distress HEENT: normocephalic Respiratory: chest wall non-tender, lungs clear Cardiovascular: normal peripheral pulses, normal rate Abdomen: normal bowel sounds Microbiology Date/Time Source Procedure Growth Status 12/19/19 11:30 Stool Clostridium difficile Toxin Assay - Final Complete Laboratory Tests 12/20/19 05:00: White Blood Count 10.9H, Red Blood Count 2.54L, Hemoglobin 7.8L, Hematocrit 22.6L, Mean Corpuscular Volume 89, Mean Corpuscular Hemoglobin 30.7, Mean Corpuscular Hemoglobin Concent 34.5, Red Cell Distribution Width 12.7, Platelet Count 215, Mean Platelet Volume 6.9, Neutrophils (%) (Auto) , Lymphocytes (%) ( Auto) , Monocytes (%) (Auto) , Eosinophils (%) (Auto) , Basophils (%) (Auto) , Sodium Level 144, Potassium Level 3.7, Chloride Level 110H, Carbon Dioxide Level 27, Anion Gap 7, Blood Urea Nitrogen 5L, Creatinine 0.8, Estimat Glomerular Filtration Rate > 60, Glucose Level 261H, Calcium Level 7.8L, Phosphorus Level 2.5, Magnesium Level 1.9, Total Bilirubin 0.2, Aspartate Amino Transf (AST/SGOT) 21, Alanine Aminotransferase (ALT/SGPT) 27, Alkaline Phosphatase 74, C-Reactive Protein, Quantitative 12.1H, Pro-B-Type Natriuretic Peptide 683H, Total Protein 5.1L, Albumin 1.1L, Globulin 4.0, Albumin/Globulin Ratio 0.3L Current Medications Medications (Trade) Dose Ordered Sig/Esequiel Route PRN Reason Start Time Stop Time Status Last Admin Dose Admin Acetaminophen (Tylenol) 650 mg Q4H PRN GT Mild Pain (Pain Scale 1-3) 12/15/19 20:00 01/10/20 19:59 12/19/19 20:00 Acetaminophen (Tylenol) 650 mg Q4H PRN RECTAL Mild Pain (Pain Scale 1-3) 12/15/19 20:00 01/10/20 19:59 12/16/19 21:54 Chlorhexidine Gluconate (Bijal-Hex 2%) 1 applic DAILY@2000 TOPIC 12/15/19 20:00 03/11/20 19:59 12/19/19 20:00 Dextrose (Dextrose 50%) 25 ml Q30M PRN IV Hypoglycemia 12/15/19 20:00 03/12/20 01:59 Dextrose (Dextrose 50%) 50 ml Q30M PRN IV Hypoglycemia 12/15/19 20:00 03/12/20 01:59 Dextrose/ Electrolytes 1,000 ml @ 50 mls/hr Q20H IV 12/19/19 10:00 01/18/20 09:59 12/20/19 04:00 Insulin Aspart (NovoLOG) Q4HR SUBQ 12/15/19 21:00 03/12/20 04:59 12/20/19 08:47 Insulin Detemir (Levemir) 15 units BID SUBQ 12/19/19 18:00 03/12/20 08:59 12/20/19 08:48 Iron Sucrose 100 mg/Sodium Chloride 60 ml @ 240 mls/hr BEDTIME IVPB 12/20/19 21:00 12/24/19 21:14 Lactobacillus Acidophilus (Culturelle) 1 tab THREE TIMES A DAY NG 12/19/19 13:00 03/18/20 12:59 12/20/19 08:33 Ondansetron HCl (Zofran) 4 mg Q6H PRN IVP Nausea & Vomiting 12/15/19 20:00 01/10/20 19:59 Pantoprazole (Protonix) 40 mg EVERY 12 HOURS IVP 12/15/19 21:00 01/11/20 08:59 12/20/19 08:33 Potassium Chloride (K-Dur) 40 meq TID ORAL 12/19/19 09:00 03/17/20 08:59 12/20/19 08:34 Spironolactone (Aldactone) 25 mg BID ORAL 12/18/19 11:00 01/17/20 10:59 12/20/19 08:34 Assessment/Plan Assessment/Plan IMPRESSION: 1. DKA. Resolved 2. Upper GI bleed. 3. Respiratory failure. Now extubated 4. Lactic acidosis. DISCUSSION: Continue antibiotics. GI following for upper gastrointestinal bleeding, Not on pressors. I will continue oxygen, Protonix, DVT prophylaxis. Saturating 100% on 4L/min O2 Seen in [facility] Await swallow eval Begin enteral feedings if swallow eval passed Has NGT in place Osorio Harris Omar Syed MD December 20, 2019 10:24
--- NOTE | 2019-12-20 11:17 | Surgery Progress Note ---
Surgery Progress Note Subjective Additional Comments wbc improved exam stable comfortable appearing Objective Last 24 Hour Vital Signs Date Time Temp Pulse Resp B/P (MAP) Pulse Ox O2 Delivery O2 Flow Rate FiO2 12/20/19 08:00 99.1 107 20 126/79 (95) 97 12/20/19 04:00 Nasal Cannula 2.0 12/20/19 04:00 97.8 104 18 116/68 (84) 99 12/20/19 03:34 106 12/20/19 00:00 Nasal Cannula 2.0 12/20/19 00:00 100 12/20/19 00:00 98.2 96 18 114/67 (83) 98 12/19/19 20:30 99.0 12/19/19 20:08 110 12/19/19 20:00 Nasal Cannula 2.0 12/19/19 20:00 99.6 106 18 136/71 (92) 98 12/19/19 16:00 98.6 100 20 140/84 (102) 98 12/19/19 16:00 Nasal Cannula 2.0 12/19/19 15:21 104 12/19/19 12:00 Nasal Cannula 2.0 12/19/19 11:59 98.1 99 20 125/73 (90) 96 12/19/19 11:38 101 I&O Intake and Output 12/19/19 12/20/19 19:00 07:00 Intake Total 1102.5 ml 1039.55 ml Output Total 1250 ml 800 ml Balance -147.5 ml 239.55 ml Free Water 200 ml 50 ml IV Total 762.5 ml 709.55 ml Tube Feeding 140 ml 280 ml Output Urine Total 1250 ml 800 ml # Bowel Movements 5 2 Dressing: other Wound: other Drains: other Cardiovascular: RSR Respiratory: decreased breath sounds Abdomen: soft, non-tender, present bowel sounds Extremities: no cyanosis Laboratory Tests Test 12/20/19 05:00 White Blood Count 10.9 K/UL (4.8-10.8) H Red Blood Count 2.54 M/UL (4.20-5.40) L Hemoglobin 7.8 G/DL (12.0-16.0) L Hematocrit 22.6 % (37.0-47.0) L Mean Corpuscular Volume 89 FL (80-99) Mean Corpuscular Hemoglobin 30.7 PG (27.0-31.0) Mean Corpuscular Hemoglobin Concent 34.5 G/DL (32.0-36.0) Red Cell Distribution Width 12.7 % (11.6-14.8) Platelet Count 215 K/UL (150-450) Mean Platelet Volume 6.9 FL (6.5-10.1) Neutrophils (%) (Auto) % (45.0-75.0) Lymphocytes (%) (Auto) % (20.0-45.0) Monocytes (%) (Auto) % (1.0-10.0) Eosinophils (%) (Auto) % (0.0-3.0) Basophils (%) (Auto) % (0.0-2.0) Sodium Level 144 MMOL/L (136-145) Potassium Level 3.7 MMOL/L (3.5-5.1) Chloride Level 110 MMOL/L (98-107) H Carbon Dioxide Level 27 MMOL/L (21-32) Anion Gap 7 mmol/L (5-15) Blood Urea Nitrogen 5 mg/dL (7-18) L Creatinine 0.8 MG/DL (0.55-1.30) Estimat Glomerular Filtration Rate > 60 mL/min (>60) Glucose Level 261 MG/DL (74-106) H Calcium Level 7.8 MG/DL (8.5-10.1) L Phosphorus Level 2.5 MG/DL (2.5-4.9) Magnesium Level 1.9 MG/DL (1.8-2.4) Total Bilirubin 0.2 MG/DL (0.2-1.0) Aspartate Amino Transf (AST/SGOT) 21 U/L (15-37) Alanine Aminotransferase (ALT/SGPT) 27 U/L (12-78) Alkaline Phosphatase 74 U/L (46-116) C-Reactive Protein, Quantitative 12.1 mg/dL (0.00-0.90) H Pro-B-Type Natriuretic Peptide 683 pg/mL (0-125) H Total Protein 5.1 G/DL (6.4-8.2) L Albumin 1.1 G/DL (3.4-5.0) L Globulin 4.0 g/dL Albumin/Globulin Ratio 0.3 (1.0-2.7) L Plan Problems: (1) Cardiac arrest (2) DKA (diabetic ketoacidoses) (3) Respiratory distress (4) Altered mental status (5) Coffee ground emesis Assessment & Plan: Coffee-ground emesis concerning for GI bleed. Transfuse PRBC now stable. No acute active bleeding noted. Discussed with GI. Will follow with recommendations hold on acute surgical intervention (6) High serum creatine (7) High blood urea nitrogen (BUN) (8) Abnormal TSH (9) DEANDRA (acute kidney injury) (10) Hypotension (11) Electrolyte imbalance (12) Hyperkalemia (13) Deep tissue injury Assessment & Plan: Patient identified to have a sacral deep tissue injury. No areas of open skin. No signs of acute active infection. Patient critically ill intensive care unit on support slowly making a recovery. Will make all times prevention as well as initiate care plan for healing. Turn every 2 hours. Skin protectant OPTi foam dressing. Offload heels with pillows. Will monitor closely. Great nursing care being provided. Nutritional optimization DAILY ESTIMATED NEEDS: Needs based on DM, pulmonary 65.5kg 25-30 kcals/kg 1953-1453 total kcals 1-1.5 g protein/kg 66-98 g total protein 25-30 mL/kg [id number] total fluid mLs NUTRITION DIAGNOSIS: Swallowing difficulty r/t Cardiopulmonary arrest as evidenced by pt now orally intubated, ICU, adm w/ DKA, now on pressor support x3- now s/p extubation, pending [employer] eval. CURRENT TF: NPO PO DIET RECOMMENDATIONS: CCHO MED DIET/ TEXTURE PER [employer] ADDITIONAL RECOMMENDATIONS: 1) Diet recs as above, [employer] eval pending 2) Maintain calibrated bed scale wts 3) Replete lytes as needed 4) Add Glucerna w/ poor po intake Enrrique Martins December 20, 2019 11:17
--- NOTE | 2019-12-20 11:26 | Nephrology Progress Note ---
Assessment/Plan Problem List: (1) DEANDRA (acute kidney injury) Assessment: Resolved (2) Hypotension (3) Cardiac arrest (4) DKA (diabetic ketoacidoses) (5) Respiratory distress (6) Coffee ground emesis (7) Electrolyte imbalance Assessment Acute renal failure which probably is superimposed on chronic kidney disease History of diabetes mellitus, most likely diabetic nephropathy. Presents with diabetic ketoacidosis Acute respiratory failure requiring intubation and mechanical ventilation Aspiration pneumonia, upper GI bleed Proteinuria and severe hypoalbuminemia should rule out nephrotic range proteinuria Anemia Electrolyte imbalances Plan Stop Reglan as the patient has diarrhea C. difficile negative Patient is doing well post extubation Will replace potassium, magnesium, and phosphorus as needed Previously 2 units of packed RBCs was transfused Hydrate as needed and monitor electrolytes Per orders Previously Monitor renal parameters Avoid nephrotoxic's Anemia work-up Urine studies Keep blood sugar and blood pressure in check Per consultants Discussed with RN Subjective ROS Limited/Unobtainable: No Constitutional: Reports: malaise Objective Objective Last 24 Hour Vital Signs Date Time Temp Pulse Resp B/P (MAP) Pulse Ox O2 Delivery O2 Flow Rate FiO2 12/20/19 08:00 99.1 107 20 126/79 (95) 97 12/20/19 04:00 Nasal Cannula 2.0 12/20/19 04:00 97.8 104 18 116/68 (84) 99 12/20/19 03:34 106 12/20/19 00:00 Nasal Cannula 2.0 12/20/19 00:00 100 12/20/19 00:00 98.2 96 18 114/67 (83) 98 12/19/19 20:30 99.0 12/19/19 20:08 110 12/19/19 20:00 Nasal Cannula 2.0 12/19/19 20:00 99.6 106 18 136/71 (92) 98 12/19/19 16:00 98.6 100 20 140/84 (102) 98 12/19/19 16:00 Nasal Cannula 2.0 12/19/19 15:21 104 12/19/19 12:00 Nasal Cannula 2.0 12/19/19 11:59 98.1 99 20 125/73 (90) 96 12/19/19 11:38 101 Intake and Output 12/19/19 12/20/19 19:00 07:00 Intake Total 1102.5 ml 1039.55 ml Output Total 1250 ml 800 ml Balance -147.5 ml 239.55 ml Free Water 200 ml 50 ml IV Total 762.5 ml 709.55 ml Tube Feeding 140 ml 280 ml Output Urine Total 1250 ml 800 ml # Bowel Movements 5 2 Laboratory Tests 12/20/19 05:00: White Blood Count 10.9H, Red Blood Count 2.54L, Hemoglobin 7.8L, Hematocrit 22.6L, Mean Corpuscular Volume 89, Mean Corpuscular Hemoglobin 30.7, Mean Corpuscular Hemoglobin Concent 34.5, Red Cell Distribution Width 12.7, Platelet Count 215, Mean Platelet Volume 6.9, Neutrophils (%) (Auto) , Lymphocytes (%) ( Auto) , Monocytes (%) (Auto) , Eosinophils (%) (Auto) , Basophils (%) (Auto) , Sodium Level 144, Potassium Level 3.7, Chloride Level 110H, Carbon Dioxide Level 27, Anion Gap 7, Blood Urea Nitrogen 5L, Creatinine 0.8, Estimat Glomerular Filtration Rate > 60, Glucose Level 261H, Calcium Level 7.8L, Phosphorus Level 2.5, Magnesium Level 1.9, Total Bilirubin 0.2, Aspartate Amino Transf (AST/SGOT) 21, Alanine Aminotransferase (ALT/SGPT) 27, Alkaline Phosphatase 74, C-Reactive Protein, Quantitative 12.1H, Pro-B-Type Natriuretic Peptide 683H, Total Protein 5.1L, Albumin 1.1L, Globulin 4.0, Albumin/Globulin Ratio 0.3L Height (Feet): 5 Height (Inches): 5.00 Weight (Pounds): 162 Cardiovascular: tachycardia Respiratory/Chest: decreased breath sounds Abdomen: soft Don Ventura MD December 20, 2019 11:26
[2019-12-20 12:00] VITALS: BP 118/65
[2019-12-20] MEDS: Acetaminophen 650mg/20.3ml GT PRN ×2 (13:28→21:02)
--- NOTE | 2019-12-20 13:35 | Cardiac Electrophysiology PN ---
Assessment/Plan Assessment/Plan 1. S/P Septic shock. Off pressors. EF 60%. EKG shows sinus tachycardia with no acute ST-T wave abnormalities. Already on broad-spectrum IV antibiotic 2. S/P Respiratory failure, Extubated 3. Hypotension. Resolved 4. Coffee-ground emesis. S/P 2 units of PRBC 5. S/P Diabetic ketoacidosis 6. Persistent hypokalemia. On aldactone and KCL po by Dr Ventura 7. Failed swallow eval. NG tube DW RN Subjective Subjective Still NGT feeding as seemed like she was aspirating with food. 1st covid negative. Second Covid pending Objective Last 24 Hour Vital Signs Date Time Temp Pulse Resp B/P (MAP) Pulse Ox O2 Delivery O2 Flow Rate FiO2 12/20/19 08:00 99.1 107 20 126/79 (95) 97 12/20/19 08:00 Nasal Cannula 2.0 12/20/19 08:00 112 12/20/19 04:00 Nasal Cannula 2.0 12/20/19 04:00 97.8 104 18 116/68 (84) 99 12/20/19 03:34 106 12/20/19 00:00 Nasal Cannula 2.0 12/20/19 00:00 100 12/20/19 00:00 98.2 96 18 114/67 (83) 98 12/19/19 20:30 99.0 12/19/19 20:08 110 12/19/19 20:00 Nasal Cannula 2.0 12/19/19 20:00 99.6 106 18 136/71 (92) 98 12/19/19 16:00 98.6 100 20 140/84 (102) 98 12/19/19 16:00 Nasal Cannula 2.0 12/19/19 15:21 104 Intake and Output 12/19/19 12/20/19 19:00 07:00 Intake Total 1102.5 ml 1039.55 ml Output Total 1250 ml 800 ml Balance -147.5 ml 239.55 ml Free Water 200 ml 50 ml IV Total 762.5 ml 709.55 ml Tube Feeding 140 ml 280 ml Output Urine Total 1250 ml 800 ml # Bowel Movements 5 2 Laboratory Tests Test 12/20/19 05:00 White Blood Count 10.9 K/UL (4.8-10.8) H Red Blood Count 2.54 M/UL (4.20-5.40) L Hemoglobin 7.8 G/DL (12.0-16.0) L Hematocrit 22.6 % (37.0-47.0) L Mean Corpuscular Volume 89 FL (80-99) Mean Corpuscular Hemoglobin 30.7 PG (27.0-31.0) Mean Corpuscular Hemoglobin Concent 34.5 G/DL (32.0-36.0) Red Cell Distribution Width 12.7 % (11.6-14.8) Platelet Count 215 K/UL (150-450) Mean Platelet Volume 6.9 FL (6.5-10.1) Neutrophils (%) (Auto) % (45.0-75.0) Lymphocytes (%) (Auto) % (20.0-45.0) Monocytes (%) (Auto) % (1.0-10.0) Eosinophils (%) (Auto) % (0.0-3.0) Basophils (%) (Auto) % (0.0-2.0) Sodium Level 144 MMOL/L (136-145) Potassium Level 3.7 MMOL/L (3.5-5.1) Chloride Level 110 MMOL/L (98-107) H Carbon Dioxide Level 27 MMOL/L (21-32) Anion Gap 7 mmol/L (5-15) Blood Urea Nitrogen 5 mg/dL (7-18) L Creatinine 0.8 MG/DL (0.55-1.30) Estimat Glomerular Filtration Rate > 60 mL/min (>60) Glucose Level 261 MG/DL (74-106) H Calcium Level 7.8 MG/DL (8.5-10.1) L Phosphorus Level 2.5 MG/DL (2.5-4.9) Magnesium Level 1.9 MG/DL (1.8-2.4) Total Bilirubin 0.2 MG/DL (0.2-1.0) Aspartate Amino Transf (AST/SGOT) 21 U/L (15-37) Alanine Aminotransferase (ALT/SGPT) 27 U/L (12-78) Alkaline Phosphatase 74 U/L (46-116) C-Reactive Protein, Quantitative 12.1 mg/dL (0.00-0.90) H Pro-B-Type Natriuretic Peptide 683 pg/mL (0-125) H Total Protein 5.1 G/DL (6.4-8.2) L Albumin 1.1 G/DL (3.4-5.0) L Globulin 4.0 g/dL Albumin/Globulin Ratio 0.3 (1.0-2.7) L Microbiology Date/Time Source Procedure Growth Status 12/19/19 11:30 Stool Clostridium difficile Toxin Assay - Final Complete Objective HEAD AND NECK: No JVD. NGT feeding LUNGS: Coarse rhonchi. CARDIOVASCULAR: Irregular S1-S2 and tachycardic. ABDOMEN: Soft. EXTREMITIES: No pitting edema. Gerardo Dyer MD December 20, 2019 13:35
[2019-12-20 16:00] VITALS: BP 114/63
[2019-12-20 20:00] VITALS: BP 121/69
[2019-12-20] MEDS ORDERED: NS 275ml ONE (20:44)
[2019-12-20] MEDS: Dyna-Hex 2% Top Sol 2oz TOPIC SCH (20:51)
[2019-12-20] MEDS ORDERED: Iron Sucrose 100 MG in NS 55 ML IVPB SCH (21:00)
[2019-12-21] VITALS: BP 113/70
[2019-12-21 04:00] VITALS: BP 147/75
[2019-12-21 05:22] LABS: BASOPHILS % (AUTO) 0.6 % (0.0-2.0); EOSINOPHILS % (AUTO) 3.9 % (0.0-3.0); HEMATOCRIT 24.2 % (37.0-47.0); HEMOGLOBIN 8.3 G/DL (12.0-16.0); LYMPHOCYTES % (AUTO) 19.3 % (20.0-45.0); MEAN CORPUSCULAR VOLUME 89 FL (80-99); MONOCYTES % (AUTO) 3.8 % (1.0-10.0); NEUTROPHILS % (AUTO) 72.4 % (45.0-75.0); PLATELET COUNT 257 K/UL (150-450); RED CELL DISTRIBUTION WIDTH 12.9 % (11.6-14.8)
[2019-12-21] MEDS: Acetaminophen 650mg/20.3ml GT PRN (05:22)
[2019-12-21] MEDS: NovoLOG Insulin Flexpen SUBQ SCH ×3 (05:22→19:07)
[2019-12-21 05:34] LABS: ALANINE AMINOTRANSFERASE 23 U/L (12-78); ALBUMIN 1.2 G/DL (3.4-5.0); ALBUMIN/GLOBULIN RATIO 0.3 (1.0-2.7); ALKALINE PHOSPHATASE 76 U/L (46-116); ANION GAP 2 mmol/L (5-15); ASPARTATE AMINO TRANSFERASE 18 U/L (15-37); BILIRUBIN,TOTAL 0.1 MG/DL (0.2-1.0); BLOOD UREA NITROGEN 4 mg/dL (7-18); CALCIUM 7.8 MG/DL (8.5-10.1); CARBON DIOXIDE 33 MMOL/L (21-32); CHLORIDE 108 MMOL/L (98-107); CREATININE 0.6 MG/DL (0.55-1.30); PHOSPHORUS 2.8 MG/DL (2.5-4.9); POTASSIUM 3.8 MMOL/L (3.5-5.1); SODIUM 143 MMOL/L (136-145)
--- NOTE | 2019-12-21 07:17 | General Progress Note ---
Assessment/Plan Problem List: (1) DKA (diabetic ketoacidoses) ICD Codes: E11.10 - Type 2 diabetes mellitus with ketoacidosis without coma SNOMED: 441034878, 57960159 Qualifiers: Qualified Codes: E13.11 - Other specified diabetes mellitus with ketoacidosis with coma (2) Cardiac arrest ICD Codes: I46.9 - Cardiac arrest, cause unspecified SNOMED: 700429530 (3) Coffee ground emesis ICD Codes: K92.0 - Hematemesis SNOMED: 85500951 (4) Abnormal TSH ICD Codes: R79.89 - Other specified abnormal findings of blood chemistry SNOMED: 800506197 Assessment/Plan: continue Levemir 15 units bid continue Novolog sliding scale every 4 hours thyroid function studies suggestive of "sick euthyroid" no need for thyroid medications repeat thyroid function in 1-2 weeks Subjective ROS Limited/Unobtainable: Yes Allergies: Coded Allergies: No Known Allergies (Unverified , 12/11/19) Subjective events noted glucose values are controlled Item Value Date Time Bedside Blood Glucose 171 mg/dl H 12/21/19 0522 Bedside Blood Glucose 147 mg/dl H 12/20/19 2303 Bedside Blood Glucose 147 mg/dl H 12/20/19 2240 Bedside Blood Glucose 137 mg/dl H 12/20/19 1812 Bedside Blood Glucose 173 mg/dl H 12/20/19 1326 Bedside Blood Glucose 161 mg/dl H 12/20/19 0848 Bedside Blood Glucose 164 mg/dl H 12/20/19 0405 Objective Last 24 Hour Vital Signs Date Time Temp Pulse Resp B/P (MAP) Pulse Ox O2 Delivery O2 Flow Rate FiO2 12/21/19 05:52 99.0 12/21/19 04:00 Nasal Cannula 2.0 12/21/19 04:00 101.0 108 22 147/75 (99) 96 12/21/19 03:45 101 12/21/19 00:00 98.4 90 24 113/70 (84) 96 12/21/19 00:00 Nasal Cannula 2.0 12/20/19 23:35 99 12/20/19 20:00 Nasal Cannula 2.0 12/20/19 20:00 99.2 106 22 121/69 (86) 100 12/20/19 19:01 101 12/20/19 16:00 94 12/20/19 16:00 98.6 103 19 114/63 (80) 100 12/20/19 16:00 Nasal Cannula 2.0 12/20/19 12:00 99.1 109 20 118/65 (82) 95 12/20/19 12:00 110 12/20/19 12:00 Nasal Cannula 2.0 12/20/19 08:20 95 Nasal Cannula 3.0 32 12/20/19 08:00 99.1 107 20 126/79 (95) 97 12/20/19 08:00 Nasal Cannula 2.0 12/20/19 08:00 112 Intake and Output 12/20/19 12/21/19 19:00 07:00 Intake Total 1170.0 ml 1044 ml Output Total 1500 ml 1250 ml Balance -330.0 ml -206 ml Free Water 200 ml 50 ml IV Total 610.0 ml 664 ml Tube Feeding 360 ml 330 ml Output Urine Total 1500 ml 1250 ml # Bowel Movements 8 4 Laboratory Tests 12/21/19 04:00: White Blood Count 8.0, Red Blood Count 2.70L, Hemoglobin 8.3L, Hematocrit 24.2L , Mean Corpuscular Volume 89, Mean Corpuscular Hemoglobin 30.7, Mean Corpuscular Hemoglobin Concent 34.3, Red Cell Distribution Width 12.9, Platelet Count 257, Mean Platelet Volume 6.7, Neutrophils (%) (Auto) 72.4, Lymphocytes (% ) (Auto) 19.3L, Monocytes (%) (Auto) 3.8, Eosinophils (%) (Auto) 3.9H, Basophils (%) (Auto) 0.6, Sodium Level 143, Potassium Level 3.8, Chloride Level 108H, Carbon Dioxide Level 33H, Anion Gap 2L, Blood Urea Nitrogen 4L, Creatinine 0.6, Estimat Glomerular Filtration Rate > 60, Glucose Level 174H, Calcium Level 7.8L, Phosphorus Level 2.8, Magnesium Level 1.8, Total Bilirubin 0.1L, Aspartate Amino Transf (AST/SGOT) 18, Alanine Aminotransferase (ALT/SGPT) 23, Alkaline Phosphatase 76, Total Protein 5.7L, Albumin 1.2L, Globulin 4.5, Albumin/Globulin Ratio 0.3L Height (Feet): 5 Height (Inches): 5.00 Weight (Pounds): 160 General Appearance: no apparent distress Neck: normal alignment Cardiovascular: normal rate Respiratory/Chest: lungs clear Abdomen: normal bowel sounds Edema: 1+ Arm (L), 1+ Arm (R), 1+ Leg (L), 1+ Leg (R), 1+ Pedal (L), 1+ Pedal ( R), 1+ Generalized Objective Current Medications Medications (Trade) Dose Ordered Sig/Esequiel Route PRN Reason Start Time Stop Time Status Last Admin Dose Admin Acetaminophen (Tylenol) 650 mg Q4H PRN GT Mild Pain (Pain Scale 1-3) 12/15/19 20:00 01/10/20 19:59 12/21/19 05:22 Acetaminophen (Tylenol) 650 mg Q4H PRN RECTAL Mild Pain (Pain Scale 1-3) 12/15/19 20:00 01/10/20 19:59 12/16/19 21:54 Chlorhexidine Gluconate (Bijal-Hex 2%) 1 applic DAILY@2000 TOPIC 12/15/19 20:00 03/11/20 19:59 12/20/19 20:51 Dextrose (Dextrose 50%) 25 ml Q30M PRN IV Hypoglycemia 12/15/19 20:00 03/12/20 01:59 Dextrose (Dextrose 50%) 50 ml Q30M PRN IV Hypoglycemia 12/15/19 20:00 03/12/20 01:59 Dextrose/ Electrolytes 1,000 ml @ 50 mls/hr Q20H IV 12/19/19 10:00 01/18/20 09:59 12/20/19 22:31 Insulin Aspart (NovoLOG) Q6HR SUBQ 12/20/19 18:00 03/12/20 04:59 12/21/19 05:22 Insulin Detemir (Levemir) 15 units BID SUBQ 12/19/19 18:00 03/12/20 08:59 12/20/19 18:12 Iron Sucrose 100 mg/Sodium Chloride 60 ml @ 240 mls/hr BEDTIME IVPB 12/20/19 21:00 12/24/19 21:14 12/20/19 20:51 Lactobacillus Acidophilus (Culturelle) 1 tab THREE TIMES A DAY NG 12/19/19 13:00 03/18/20 12:59 12/20/19 17:33 Ondansetron HCl (Zofran) 4 mg Q6H PRN IVP Nausea & Vomiting 12/15/19 20:00 01/10/20 19:59 Pantoprazole (Protonix) 40 mg EVERY 12 HOURS IVP 12/15/19 21:00 01/11/20 08:59 12/20/19 20:51 Potassium Chloride (K-Dur) 40 meq BID ORAL 12/20/19 18:00 03/17/20 08:59 12/20/19 17:34 Spironolactone (Aldactone) 25 mg BID ORAL 12/18/19 11:00 01/17/20 10:59 12/20/19 17:33 Stef Ortega MD December 21, 2019 07:17
[2019-12-21 08:00] VITALS: BP 119/68
[2019-12-21] MEDS ORDERED: Acetaminophen 650 MG SUPP RECTAL PRN (08:00)
[2019-12-21] MEDS ORDERED: Acetaminophen 650mg/20.3ml GT PRN (08:00)
--- NOTE | 2019-12-21 09:33 | General Progress Note ---
Assessment/Plan Problem List: (1) Coffee ground emesis ICD Codes: K92.0 - Hematemesis SNOMED: 02478988 (2) High blood urea nitrogen (BUN) ICD Codes: R79.9 - Abnormal finding of blood chemistry, unspecified SNOMED: 421934461, 518276984 (3) High serum creatine ICD Codes: R79.89 - Other specified abnormal findings of blood chemistry SNOMED: 048007447, 842465729 (4) DKA (diabetic ketoacidoses) ICD Codes: E11.10 - Type 2 diabetes mellitus with ketoacidosis without coma SNOMED: 484141487, 60497808 Qualifiers: Qualified Codes: E13.11 - Other specified diabetes mellitus with ketoacidosis with coma (5) Altered mental status ICD Codes: R41.82 - Altered mental status, unspecified SNOMED: 819938976, 62957830 Qualifiers: Qualified Codes: R41.82 - Altered mental status, unspecified (6) Cardiac arrest ICD Codes: I46.9 - Cardiac arrest, cause unspecified SNOMED: 763711229 (7) Respiratory distress ICD Codes: R06.03 - Acute respiratory distress SNOMED: 278726641 Assessment/Plan: s/p 2 units prbc in this admission positive stool ob x1 ppi iv BID monitor H&H transfuse to keep HGB above 7.5 NGTF>>> will increase to 50 D/W the nurse plan repeat swallow for today + diarrhea>>> pending C.diff will fu Subjective ROS Limited/Unobtainable: No Allergies: Coded Allergies: No Known Allergies (Unverified , 12/11/19) Objective Last 24 Hour Vital Signs Date Time Temp Pulse Resp B/P (MAP) Pulse Ox O2 Delivery O2 Flow Rate FiO2 12/21/19 07:25 95 Nasal Cannula 2.0 28 12/21/19 05:52 99.0 12/21/19 04:00 Nasal Cannula 2.0 12/21/19 04:00 101.0 108 22 147/75 (99) 96 12/21/19 03:45 101 12/21/19 00:00 98.4 90 24 113/70 (84) 96 12/21/19 00:00 Nasal Cannula 2.0 12/20/19 23:35 99 12/20/19 20:00 Nasal Cannula 2.0 12/20/19 20:00 99.2 106 22 121/69 (86) 100 12/20/19 19:01 101 12/20/19 16:00 94 12/20/19 16:00 98.6 103 19 114/63 (80) 100 12/20/19 16:00 Nasal Cannula 2.0 12/20/19 12:00 99.1 109 20 118/65 (82) 95 12/20/19 12:00 110 12/20/19 12:00 Nasal Cannula 2.0 Intake and Output 12/20/19 12/21/19 19:00 07:00 Intake Total 1170.0 ml 1124 ml Output Total 1500 ml 1250 ml Balance -330.0 ml -126 ml Free Water 200 ml 50 ml IV Total 610.0 ml 714 ml Tube Feeding 360 ml 360 ml Output Urine Total 1500 ml 1250 ml # Bowel Movements 8 4 Laboratory Tests 12/21/19 04:00: White Blood Count 8.0, Red Blood Count 2.70L, Hemoglobin 8.3L, Hematocrit 24.2L , Mean Corpuscular Volume 89, Mean Corpuscular Hemoglobin 30.7, Mean Corpuscular Hemoglobin Concent 34.3, Red Cell Distribution Width 12.9, Platelet Count 257, Mean Platelet Volume 6.7, Neutrophils (%) (Auto) 72.4, Lymphocytes (% ) (Auto) 19.3L, Monocytes (%) (Auto) 3.8, Eosinophils (%) (Auto) 3.9H, Basophils (%) (Auto) 0.6, Sodium Level 143, Potassium Level 3.8, Chloride Level 108H, Carbon Dioxide Level 33H, Anion Gap 2L, Blood Urea Nitrogen 4L, Creatinine 0.6, Estimat Glomerular Filtration Rate > 60, Glucose Level 174H, Calcium Level 7.8L, Phosphorus Level 2.8, Magnesium Level 1.8, Total Bilirubin 0.1L, Aspartate Amino Transf (AST/SGOT) 18, Alanine Aminotransferase (ALT/SGPT) 23, Alkaline Phosphatase 76, Total Protein 5.7L, Albumin 1.2L, Globulin 4.5, Albumin/Globulin Ratio 0.3L Height (Feet): 5 Height (Inches): 5.00 Weight (Pounds): 160 General Appearance: alert EENT: normal ENT inspection Neck: supple Cardiovascular: normal rate Respiratory/Chest: decreased breath sounds Abdomen: normal bowel sounds, non tender, soft Extremities: non-tender Maykel Stephen MD December 21, 2019 09:33
[2019-12-21] MEDS: Spironolactone 25mg tab ORAL SCH ×2 (10:20→18:29)
[2019-12-21] MEDS: Pantoprazole Inj IVP SCH ×2 (10:20→20:41)
[2019-12-21] MEDS: Lactobacillus-GG tablet NG SCH ×3 (10:21→18:29)
--- NOTE | 2019-12-21 10:29 | Infectious Diseases Prog Note ---
Assessment/Plan Assessment/Plan antibiotics : zosyn A 1. pneumonia COVID 19 test negative 2. Diabetic ketoacidosis resolving 3. Renal failure resolved 4. Leukocytosis resolved 5. fever PLAN: 1. blood culture 2. UA and urine culture 3. start zosyn 4. will follow up cultures Subjective ROS Limited/Unobtainable: Yes Allergies: Coded Allergies: No Known Allergies (Unverified , 12/11/19) Objective Vital Signs Last 24 Hour Vital Signs Date Time Temp Pulse Resp B/P (MAP) Pulse Ox O2 Delivery O2 Flow Rate FiO2 12/21/19 08:00 97.9 102 20 119/68 (85) 93 12/21/19 07:25 95 Nasal Cannula 2.0 28 12/21/19 05:52 99.0 12/21/19 04:00 Nasal Cannula 2.0 12/21/19 04:00 101.0 108 22 147/75 (99) 96 12/21/19 03:45 101 12/21/19 00:00 98.4 90 24 113/70 (84) 96 12/21/19 00:00 Nasal Cannula 2.0 12/20/19 23:35 99 12/20/19 20:00 Nasal Cannula 2.0 12/20/19 20:00 99.2 106 22 121/69 (86) 100 12/20/19 19:01 101 12/20/19 16:00 94 12/20/19 16:00 98.6 103 19 114/63 (80) 100 12/20/19 16:00 Nasal Cannula 2.0 12/20/19 12:00 99.1 109 20 118/65 (82) 95 12/20/19 12:00 110 12/20/19 12:00 Nasal Cannula 2.0 Height (Feet): 5 Height (Inches): 5.00 Weight (Pounds): 160 Respiratory/Chest: lungs clear Cardiovascular: normal rate, regular rhythm, no gallop/murmur Abdomen: soft, non tender, other - GT Extremities: no edema Microbiology Date/Time Source Procedure Growth Status 12/19/19 11:30 Stool Clostridium difficile Toxin Assay - Final Complete Laboratory Tests Test 12/21/19 04:00 White Blood Count 8.0 K/UL (4.8-10.8) Red Blood Count 2.70 M/UL (4.20-5.40) L Hemoglobin 8.3 G/DL (12.0-16.0) L Hematocrit 24.2 % (37.0-47.0) L Mean Corpuscular Volume 89 FL (80-99) Mean Corpuscular Hemoglobin 30.7 PG (27.0-31.0) Mean Corpuscular Hemoglobin Concent 34.3 G/DL (32.0-36.0) Red Cell Distribution Width 12.9 % (11.6-14.8) Platelet Count 257 K/UL (150-450) Mean Platelet Volume 6.7 FL (6.5-10.1) Neutrophils (%) (Auto) 72.4 % (45.0-75.0) Lymphocytes (%) (Auto) 19.3 % (20.0-45.0) L Monocytes (%) (Auto) 3.8 % (1.0-10.0) Eosinophils (%) (Auto) 3.9 % (0.0-3.0) H Basophils (%) (Auto) 0.6 % (0.0-2.0) Sodium Level 143 MMOL/L (136-145) Potassium Level 3.8 MMOL/L (3.5-5.1) Chloride Level 108 MMOL/L (98-107) H Carbon Dioxide Level 33 MMOL/L (21-32) H Anion Gap 2 mmol/L (5-15) L Blood Urea Nitrogen 4 mg/dL (7-18) L Creatinine 0.6 MG/DL (0.55-1.30) Estimat Glomerular Filtration Rate > 60 mL/min (>60) Glucose Level 174 MG/DL (74-106) H Calcium Level 7.8 MG/DL (8.5-10.1) L Phosphorus Level 2.8 MG/DL (2.5-4.9) Magnesium Level 1.8 MG/DL (1.8-2.4) Total Bilirubin 0.1 MG/DL (0.2-1.0) L Aspartate Amino Transf (AST/SGOT) 18 U/L (15-37) Alanine Aminotransferase (ALT/SGPT) 23 U/L (12-78) Alkaline Phosphatase 76 U/L (46-116) Total Protein 5.7 G/DL (6.4-8.2) L Albumin 1.2 G/DL (3.4-5.0) L Globulin 4.5 g/dL Albumin/Globulin Ratio 0.3 (1.0-2.7) L Current Medications Medications (Trade) Dose Ordered Sig/Esequiel Route PRN Reason Start Time Stop Time Status Last Admin Dose Admin Acetaminophen (Tylenol) 650 mg Q4H PRN GT Mild Pain (Pain Scale 1-3) 12/21/19 08:00 01/10/20 19:59 Acetaminophen (Tylenol) 650 mg Q4H PRN RECTAL Mild Pain (Pain Scale 1-3) 12/21/19 08:00 01/10/20 19:59 Chlorhexidine Gluconate (Bijal-Hex 2%) 1 applic DAILY@2000 TOPIC 12/21/19 20:00 03/11/20 19:59 Dextrose (Dextrose 50%) 25 ml Q30M PRN IV Hypoglycemia 12/21/19 07:30 03/12/20 01:59 Dextrose (Dextrose 50%) 50 ml Q30M PRN IV Hypoglycemia 12/21/19 07:30 03/12/20 01:59 Dextrose/ Electrolytes 1,000 ml @ 50 mls/hr Q20H IV 12/19/19 10:00 12/21/19 12:59 12/20/19 22:31 Dextrose/ Electrolytes 1,000 ml @ 50 mls/hr Q20H IV 12/21/19 13:00 01/18/20 12:59 Insulin Aspart (NovoLOG) Q6HR SUBQ 12/21/19 12:00 03/12/20 04:59 Insulin Detemir (Levemir) 15 units Q12HR SUBQ 12/21/19 09:00 03/20/20 08:59 Iron Sucrose 100 mg/Sodium Chloride 60 ml @ 240 mls/hr BEDTIME IV 12/21/19 21:00 12/24/19 21:14 Lactobacillus Acidophilus (Culturelle) 1 tab THREE TIMES A DAY NG 12/21/19 09:00 03/18/20 12:59 12/21/19 10:21 Ondansetron HCl (Zofran) 4 mg Q6H PRN IVP Nausea & Vomiting 12/21/19 08:00 01/10/20 19:59 Pantoprazole (Protonix) 40 mg EVERY 12 HOURS IVP 12/21/19 09:00 01/11/20 08:59 12/21/19 10:20 Potassium Chloride (K-Dur) 40 meq BID ORAL 12/21/19 09:00 03/17/20 08:59 12/21/19 10:20 Spironolactone (Aldactone) 25 mg BID ORAL 12/21/19 09:00 01/17/20 10:59 12/21/19 10:20 Eden Salvador MD December 21, 2019 10:29
[2019-12-21] MEDS: Levemir Flexpen SUBQ SCH ×2 (11:06→21:07)
[2019-12-21 12:00] VITALS: BP 123/74
--- NOTE | 2019-12-21 12:47 | Nephrology Progress Note ---
Assessment/Plan Problem List: (1) DEANDRA (acute kidney injury) Assessment: Resolved (2) Hypotension (3) Cardiac arrest (4) DKA (diabetic ketoacidoses) (5) Respiratory distress (6) Coffee ground emesis (7) Electrolyte imbalance Assessment Acute renal failure which probably is superimposed on chronic kidney disease History of diabetes mellitus, most likely diabetic nephropathy. Presents with diabetic ketoacidosis Acute respiratory failure requiring intubation and mechanical ventilation Aspiration pneumonia, upper GI bleed Proteinuria and severe hypoalbuminemia should rule out nephrotic range proteinuria Anemia Electrolyte imbalances Plan Electrolytes seems to be reasonably corrected Off Reglan as the patient has diarrhea C. difficile negative Patient is doing well post extubation Will replace potassium, magnesium, and phosphorus as needed Previously 2 units of packed RBCs was transfused Hydrate as needed and monitor electrolytes Per orders Previously Monitor renal parameters Avoid nephrotoxic's Anemia work-up Urine studies Keep blood sugar and blood pressure in check Per consultants Discussed with RN Subjective ROS Limited/Unobtainable: No Constitutional: Reports: malaise, weakness Objective Objective Last 24 Hour Vital Signs Date Time Temp Pulse Resp B/P (MAP) Pulse Ox O2 Delivery O2 Flow Rate FiO2 12/21/19 08:00 Nasal Cannula 2.0 12/21/19 08:00 97.9 102 20 119/68 (85) 93 12/21/19 08:00 94 12/21/19 07:25 95 Nasal Cannula 2.0 28 12/21/19 05:52 99.0 12/21/19 04:00 Nasal Cannula 2.0 12/21/19 04:00 101.0 108 22 147/75 (99) 96 12/21/19 03:45 101 12/21/19 00:00 98.4 90 24 113/70 (84) 96 12/21/19 00:00 Nasal Cannula 2.0 12/20/19 23:35 99 12/20/19 20:00 Nasal Cannula 2.0 12/20/19 20:00 99.2 106 22 121/69 (86) 100 12/20/19 19:01 101 12/20/19 16:00 94 12/20/19 16:00 98.6 103 19 114/63 (80) 100 12/20/19 16:00 Nasal Cannula 2.0 Intake and Output 12/20/19 12/21/19 19:00 07:00 Intake Total 1170.0 ml 1124 ml Output Total 1500 ml 1250 ml Balance -330.0 ml -126 ml Free Water 200 ml 50 ml IV Total 610.0 ml 714 ml Tube Feeding 360 ml 360 ml Output Urine Total 1500 ml 1250 ml # Bowel Movements 8 4 Laboratory Tests 12/21/19 04:00: White Blood Count 8.0, Red Blood Count 2.70L, Hemoglobin 8.3L, Hematocrit 24.2L , Mean Corpuscular Volume 89, Mean Corpuscular Hemoglobin 30.7, Mean Corpuscular Hemoglobin Concent 34.3, Red Cell Distribution Width 12.9, Platelet Count 257, Mean Platelet Volume 6.7, Neutrophils (%) (Auto) 72.4, Lymphocytes (% ) (Auto) 19.3L, Monocytes (%) (Auto) 3.8, Eosinophils (%) (Auto) 3.9H, Basophils (%) (Auto) 0.6, Sodium Level 143, Potassium Level 3.8, Chloride Level 108H, Carbon Dioxide Level 33H, Anion Gap 2L, Blood Urea Nitrogen 4L, Creatinine 0.6, Estimat Glomerular Filtration Rate > 60, Glucose Level 174H, Calcium Level 7.8L, Phosphorus Level 2.8, Magnesium Level 1.8, Total Bilirubin 0.1L, Aspartate Amino Transf (AST/SGOT) 18, Alanine Aminotransferase (ALT/SGPT) 23, Alkaline Phosphatase 76, Total Protein 5.7L, Albumin 1.2L, Globulin 4.5, Albumin/Globulin Ratio 0.3L Height (Feet): 5 Height (Inches): 5.00 Weight (Pounds): 160 General Appearance: no apparent distress, lethargic EENT: other - NG tube in place Cardiovascular: tachycardia Respiratory/Chest: decreased breath sounds Abdomen: soft Don Ventura MD December 21, 2019 12:47
[2019-12-21] MEDS: Piperacillin/Tazobactam 3.375 GM in NS 110 ML IVPB SCH ×2 (12:50→19:05)
[2019-12-21] MEDS: D5 1/2NS w/KCl 40meq 1000ml 1,000 ML IV SCH ×2 (13:00→19:00)
--- NOTE | 2019-12-21 13:13 | Cardiac Electrophysiology PN ---
Assessment/Plan Assessment/Plan 1. S/P Septic shock. Off pressors. EF 60%. EKG shows sinus tachycardia with no acute ST-T wave abnormalities. 2. S/P Respiratory failure, Extubated 3. Hypotension. Resolved 4. Coffee-ground emesis. S/P 2 units of PRBC 5. S/P Diabetic ketoacidosis 6. Persistent hypokalemia. On aldactone and KCL po by Dr Ventura 7. Failed swallow eval. NG tube DW RN Subjective Subjective Still NGT feeding 1st covid negative. Second Covid pending. On 2 liter NC Objective Last 24 Hour Vital Signs Date Time Temp Pulse Resp B/P (MAP) Pulse Ox O2 Delivery O2 Flow Rate FiO2 12/21/19 12:00 100 12/21/19 12:00 97.5 103 18 123/74 (90) 95 12/21/19 08:00 Nasal Cannula 2.0 12/21/19 08:00 97.9 102 20 119/68 (85) 93 12/21/19 08:00 94 12/21/19 07:25 95 Nasal Cannula 2.0 28 12/21/19 05:52 99.0 12/21/19 04:00 Nasal Cannula 2.0 12/21/19 04:00 101.0 108 22 147/75 (99) 96 12/21/19 03:45 101 12/21/19 00:00 98.4 90 24 113/70 (84) 96 12/21/19 00:00 Nasal Cannula 2.0 12/20/19 23:35 99 12/20/19 20:00 Nasal Cannula 2.0 12/20/19 20:00 99.2 106 22 121/69 (86) 100 12/20/19 19:01 101 12/20/19 16:00 94 12/20/19 16:00 98.6 103 19 114/63 (80) 100 12/20/19 16:00 Nasal Cannula 2.0 Intake and Output 12/20/19 12/21/19 19:00 07:00 Intake Total 1170.0 ml 1124 ml Output Total 1500 ml 1250 ml Balance -330.0 ml -126 ml Free Water 200 ml 50 ml IV Total 610.0 ml 714 ml Tube Feeding 360 ml 360 ml Output Urine Total 1500 ml 1250 ml # Bowel Movements 8 4 Laboratory Tests Test 12/21/19 04:00 White Blood Count 8.0 K/UL (4.8-10.8) Red Blood Count 2.70 M/UL (4.20-5.40) L Hemoglobin 8.3 G/DL (12.0-16.0) L Hematocrit 24.2 % (37.0-47.0) L Mean Corpuscular Volume 89 FL (80-99) Mean Corpuscular Hemoglobin 30.7 PG (27.0-31.0) Mean Corpuscular Hemoglobin Concent 34.3 G/DL (32.0-36.0) Red Cell Distribution Width 12.9 % (11.6-14.8) Platelet Count 257 K/UL (150-450) Mean Platelet Volume 6.7 FL (6.5-10.1) Neutrophils (%) (Auto) 72.4 % (45.0-75.0) Lymphocytes (%) (Auto) 19.3 % (20.0-45.0) L Monocytes (%) (Auto) 3.8 % (1.0-10.0) Eosinophils (%) (Auto) 3.9 % (0.0-3.0) H Basophils (%) (Auto) 0.6 % (0.0-2.0) Sodium Level 143 MMOL/L (136-145) Potassium Level 3.8 MMOL/L (3.5-5.1) Chloride Level 108 MMOL/L (98-107) H Carbon Dioxide Level 33 MMOL/L (21-32) H Anion Gap 2 mmol/L (5-15) L Blood Urea Nitrogen 4 mg/dL (7-18) L Creatinine 0.6 MG/DL (0.55-1.30) Estimat Glomerular Filtration Rate > 60 mL/min (>60) Glucose Level 174 MG/DL (74-106) H Calcium Level 7.8 MG/DL (8.5-10.1) L Phosphorus Level 2.8 MG/DL (2.5-4.9) Magnesium Level 1.8 MG/DL (1.8-2.4) Total Bilirubin 0.1 MG/DL (0.2-1.0) L Aspartate Amino Transf (AST/SGOT) 18 U/L (15-37) Alanine Aminotransferase (ALT/SGPT) 23 U/L (12-78) Alkaline Phosphatase 76 U/L (46-116) Total Protein 5.7 G/DL (6.4-8.2) L Albumin 1.2 G/DL (3.4-5.0) L Globulin 4.5 g/dL Albumin/Globulin Ratio 0.3 (1.0-2.7) L Microbiology Date/Time Source Procedure Growth Status 12/19/19 11:30 Stool Clostridium difficile Toxin Assay - Final Complete Objective HEAD AND NECK: No JVD. NGT feeding LUNGS: Coarse rhonchi. CARDIOVASCULAR: Irregular S1-S2 and tachycardic. ABDOMEN: Soft. EXTREMITIES: No pitting edema. Gerardo Dyer MD December 21, 2019 13:13
--- NOTE | 2019-12-21 14:12 | Surgery Progress Note ---
Surgery Progress Note Subjective Additional Comments reviewed mangle catcher notes exam stable comfortable Objective Last 24 Hour Vital Signs Date Time Temp Pulse Resp B/P (MAP) Pulse Ox O2 Delivery O2 Flow Rate FiO2 12/21/19 12:00 100 12/21/19 12:00 97.5 103 18 123/74 (90) 95 12/21/19 08:00 Nasal Cannula 2.0 12/21/19 08:00 97.9 102 20 119/68 (85) 93 12/21/19 08:00 94 12/21/19 07:25 95 Nasal Cannula 2.0 28 12/21/19 05:52 99.0 12/21/19 04:00 Nasal Cannula 2.0 12/21/19 04:00 101.0 108 22 147/75 (99) 96 12/21/19 03:45 101 12/21/19 00:00 98.4 90 24 113/70 (84) 96 12/21/19 00:00 Nasal Cannula 2.0 12/20/19 23:35 99 12/20/19 20:00 Nasal Cannula 2.0 12/20/19 20:00 99.2 106 22 121/69 (86) 100 12/20/19 19:01 101 12/20/19 16:00 94 12/20/19 16:00 98.6 103 19 114/63 (80) 100 12/20/19 16:00 Nasal Cannula 2.0 I&O Intake and Output 12/20/19 12/21/19 19:00 07:00 Intake Total 1170.0 ml 1124 ml Output Total 1500 ml 1250 ml Balance -330.0 ml -126 ml Free Water 200 ml 50 ml IV Total 610.0 ml 714 ml Tube Feeding 360 ml 360 ml Output Urine Total 1500 ml 1250 ml # Bowel Movements 8 4 Dressing: other Wound: other Drains: other Cardiovascular: RSR Respiratory: decreased breath sounds Abdomen: soft, non-tender, present bowel sounds Extremities: no cyanosis Laboratory Tests Test 12/21/19 04:00 White Blood Count 8.0 K/UL (4.8-10.8) Red Blood Count 2.70 M/UL (4.20-5.40) L Hemoglobin 8.3 G/DL (12.0-16.0) L Hematocrit 24.2 % (37.0-47.0) L Mean Corpuscular Volume 89 FL (80-99) Mean Corpuscular Hemoglobin 30.7 PG (27.0-31.0) Mean Corpuscular Hemoglobin Concent 34.3 G/DL (32.0-36.0) Red Cell Distribution Width 12.9 % (11.6-14.8) Platelet Count 257 K/UL (150-450) Mean Platelet Volume 6.7 FL (6.5-10.1) Neutrophils (%) (Auto) 72.4 % (45.0-75.0) Lymphocytes (%) (Auto) 19.3 % (20.0-45.0) L Monocytes (%) (Auto) 3.8 % (1.0-10.0) Eosinophils (%) (Auto) 3.9 % (0.0-3.0) H Basophils (%) (Auto) 0.6 % (0.0-2.0) Sodium Level 143 MMOL/L (136-145) Potassium Level 3.8 MMOL/L (3.5-5.1) Chloride Level 108 MMOL/L (98-107) H Carbon Dioxide Level 33 MMOL/L (21-32) H Anion Gap 2 mmol/L (5-15) L Blood Urea Nitrogen 4 mg/dL (7-18) L Creatinine 0.6 MG/DL (0.55-1.30) Estimat Glomerular Filtration Rate > 60 mL/min (>60) Glucose Level 174 MG/DL (74-106) H Calcium Level 7.8 MG/DL (8.5-10.1) L Phosphorus Level 2.8 MG/DL (2.5-4.9) Magnesium Level 1.8 MG/DL (1.8-2.4) Total Bilirubin 0.1 MG/DL (0.2-1.0) L Aspartate Amino Transf (AST/SGOT) 18 U/L (15-37) Alanine Aminotransferase (ALT/SGPT) 23 U/L (12-78) Alkaline Phosphatase 76 U/L (46-116) Total Protein 5.7 G/DL (6.4-8.2) L Albumin 1.2 G/DL (3.4-5.0) L Globulin 4.5 g/dL Albumin/Globulin Ratio 0.3 (1.0-2.7) L Plan Problems: (1) Cardiac arrest (2) DKA (diabetic ketoacidoses) (3) Respiratory distress (4) Altered mental status (5) Coffee ground emesis Assessment & Plan: Coffee-ground emesis concerning for GI bleed. Transfuse PRBC now stable. No acute active bleeding noted. Discussed with GI. Will follow with recommendations hold on acute surgical intervention dysphagia tx and management, has nasal cannula 2 L/min, NGT is intact. VITALS: HR: 108bpm; RR: 22; SP02 96%. Dysphonia characterized by breathy vocal quality, ongoing s/p extubation (12/13) . Per RN, Patient presents with wheezing, lungs with rhonchi. Patient continues to be a high risk for (silent) aspiration; will require Modified Barium Swallow Study to r/o silent aspiration. Patient is negative x1, MOLD DRESSER will attempt to complete MBSS with Patient today pending on transfer status (due to contact precautions) and scheduling in radiology. Patient completed brief swallow practice w/ trace ice chips, resulting in immediate s/s of aspiration. -Minimal PO trials given due to Patient's respiratory rate increasing to 26 breaths/min, therefore, no additional PO trials given 2/2 aspiration risk. Patient continues to be unsafe for PO intake at this time and presents as a HIGH RISK FOR (SILENT) ASPIRATION. PLAN: 1. Continue NPO, ok for 1-3 ice chips every 6 hours for swallow practice and comfort. 2. Plan to attempt MBSS to objectively evaluate swallowing physiology and r /o silent aspiration. 3. MOLD DRESSER plans to continue to f/u with Patient for ongoing assessment of swallowing safety and readiness for PO intake. (6) High serum creatine (7) High blood urea nitrogen (BUN) (8) Abnormal TSH (9) DEANDRA (acute kidney injury) (10) Hypotension (11) Electrolyte imbalance (12) Hyperkalemia (13) Deep tissue injury Assessment & Plan: Patient identified to have a sacral deep tissue injury. No areas of open skin. No signs of acute active infection. Patient critically ill intensive care unit on support slowly making a recovery. Will make all times prevention as well as initiate care plan for healing. Turn every 2 hours. Skin protectant OPTi foam dressing. Offload heels with pillows. Will monitor closely. Great nursing care being provided. Nutritional optimization DAILY ESTIMATED NEEDS: Needs based on DM, pulmonary 65.5kg 25-30 kcals/kg [id number] total kcals 1-1.5 g protein/kg 66-98 g total protein 25-30 mL/kg total fluid mLs NUTRITION DIAGNOSIS: Swallowing difficulty r/t Cardiopulmonary arrest as evidenced by pt now orally intubated, ICU, adm w/ DKA, now on pressor support x3- now s/p extubation, pending MOLD DRESSER eval. CURRENT TF: NPO PO DIET [facility]OMM[facility] TEXTURE PER MOLD DRESSER ADDITIONAL RECOMMENDATIONS: 1) Diet recs as above, MOLD DRESSER eval pending 2) Maintain calibrated bed scale wts 3) Replete lytes as needed 4) Add Glucerna w/ poor po intake Enrrique Martins December 21, 2019 14:12
--- NOTE | 2019-12-21 15:34 | Pulmonology Progress Note ---
Subjective ROS Limited/Unobtainable: No Interval Events: Extubated 12/13/19; NGT in place HEENT: Repors: no symptoms Respiratory: Reports: no symptoms Cardiovascular: Reports: no symptoms Gastrointestinal/Abdominal: Reports: diarrhea, other Genitourinary: Reports: no symptoms Allergies: Coded Allergies: No Known Allergies (Unverified , 12/11/19) All Systems: reviewed and negative except above Objective Last 24 Hour Vital Signs Date Time Temp Pulse Resp B/P (MAP) Pulse Ox O2 Delivery O2 Flow Rate FiO2 12/21/19 12:00 100 12/21/19 12:00 97.5 103 18 123/74 (90) 95 12/21/19 08:00 Nasal Cannula 2.0 12/21/19 08:00 97.9 102 20 119/68 (85) 93 12/21/19 08:00 94 12/21/19 07:25 95 Nasal Cannula 2.0 28 12/21/19 05:52 99.0 12/21/19 04:00 Nasal Cannula 2.0 12/21/19 04:00 101.0 108 22 147/75 (99) 96 12/21/19 03:45 101 12/21/19 00:00 98.4 90 24 113/70 (84) 96 12/21/19 00:00 Nasal Cannula 2.0 12/20/19 23:35 99 12/20/19 20:00 Nasal Cannula 2.0 12/20/19 20:00 99.2 106 22 121/69 (86) 100 12/20/19 19:01 101 12/20/19 16:00 94 12/20/19 16:00 98.6 103 19 114/63 (80) 100 12/20/19 16:00 Nasal Cannula 2.0 Intake and Output 12/20/19 12/21/19 19:00 07:00 Intake Total 1170.0 ml 1124 ml Output Total 1500 ml 1250 ml Balance -330.0 ml -126 ml Free Water 200 ml 50 ml IV Total 610.0 ml 714 ml Tube Feeding 360 ml 360 ml Output Urine Total 1500 ml 1250 ml # Bowel Movements 8 4 General Appearance: no acute distress HEENT: normocephalic Respiratory: chest wall non-tender, lungs clear Cardiovascular: normal peripheral pulses, normal rate Abdomen: normal bowel sounds Microbiology Date/Time Source Procedure Growth Status 12/19/19 11:30 Stool Clostridium difficile Toxin Assay - Final Complete Laboratory Tests 12/21/19 04:00: White Blood Count 8.0, Red Blood Count 2.70L, Hemoglobin 8.3L, Hematocrit 24.2L , Mean Corpuscular Volume 89, Mean Corpuscular Hemoglobin 30.7, Mean Corpuscular Hemoglobin Concent 34.3, Red Cell Distribution Width 12.9, Platelet Count 257, Mean Platelet Volume 6.7, Neutrophils (%) (Auto) 72.4, Lymphocytes (% ) (Auto) 19.3L, Monocytes (%) (Auto) 3.8, Eosinophils (%) (Auto) 3.9H, Basophils (%) (Auto) 0.6, Sodium Level 143, Potassium Level 3.8, Chloride Level 108H, Carbon Dioxide Level 33H, Anion Gap 2L, Blood Urea Nitrogen 4L, Creatinine 0.6, Estimat Glomerular Filtration Rate > 60, Glucose Level 174H, Calcium Level 7.8L, Phosphorus Level 2.8, Magnesium Level 1.8, Total Bilirubin 0.1L, Aspartate Amino Transf (AST/SGOT) 18, Alanine Aminotransferase (ALT/SGPT) 23, Alkaline Phosphatase 76, Total Protein 5.7L, Albumin 1.2L, Globulin 4.5, Albumin/Globulin Ratio 0.3L Current Medications Medications (Trade) Dose Ordered Sig/Esequiel Route PRN Reason Start Time Stop Time Status Last Admin Dose Admin Acetaminophen (Tylenol) 650 mg Q4H PRN GT Mild Pain (Pain Scale 1-3) 12/21/19 08:00 01/10/20 19:59 Acetaminophen (Tylenol) 650 mg Q4H PRN RECTAL Mild Pain (Pain Scale 1-3) 12/21/19 08:00 01/10/20 19:59 Chlorhexidine Gluconate (Bijal-Hex 2%) 1 applic DAILY@2000 TOPIC 12/21/19 20:00 03/11/20 19:59 Dextrose (Dextrose 50%) 25 ml Q30M PRN IV Hypoglycemia 12/21/19 07:30 03/12/20 01:59 Dextrose (Dextrose 50%) 50 ml Q30M PRN IV Hypoglycemia 12/21/19 07:30 03/12/20 01:59 Dextrose/ Electrolytes 1,000 ml @ 50 mls/hr Q20H IV 12/21/19 13:00 6/23/20 12:59 Insulin Aspart (NovoLOG) Q6HR SUBQ 12/21/19 12:00 03/12/20 04:59 12/21/19 12:50 Insulin Detemir (Levemir) 15 units Q12HR SUBQ 12/21/19 09:00 03/20/20 08:59 12/21/19 11:06 Iron Sucrose 100 mg/Sodium Chloride 60 ml @ 240 mls/hr BEDTIME IV 12/21/19 21:00 12/24/19 21:14 Lactobacillus Acidophilus (Culturelle) 1 tab THREE TIMES A DAY NG 12/21/19 09:00 03/18/20 12:59 12/21/19 13:32 Ondansetron HCl (Zofran) 4 mg Q6H PRN IVP Nausea & Vomiting 12/21/19 08:00 01/10/20 19:59 Pantoprazole (Protonix) 40 mg EVERY 12 HOURS IVP 12/21/19 09:00 01/11/20 08:59 12/21/19 10:20 Piperacillin Sod/ Tazobactam Sod 3.375 gm/Sodium Chloride 110 ml @ 27.5 mls/hr Q8H IVPB 12/21/19 11:00 12/28/19 10:59 12/21/19 12:50 Potassium Chloride (K-Dur) 40 meq BID ORAL 12/21/19 09:00 03/17/20 08:59 12/21/19 10:20 Spironolactone (Aldactone) 25 mg BID ORAL 12/21/19 09:00 01/17/20 10:59 12/21/19 10:20 Assessment/Plan Assessment/Plan IMPRESSION: 1. DKA. Resolved 2. Upper GI bleed. 3. Respiratory failure. Now extubated 4. Lactic acidosis. DISCUSSION: Continue antibiotics. GI following for upper gastrointestinal bleeding, Not on pressors. I will continue oxygen, Protonix, DVT prophylaxis. Saturating 100% on 4L/min O2 Seen in [facility] Await swallow eval Begin enteral feedings if swallow eval passed Has NGT in place Robin Tirmizi, M.D. Tirmizi,Robin Jeffrey MD December 21, 2019 15:34
[2019-12-21 16:00] VITALS: BP 124/67
[2019-12-21 16:20] LABS: APPEARANCE,URINE CLEAR; BILIRUBIN, URINE NEGATIVE (NEGATIVE); COLOR,URINE PALE YELLOW; GLUCOSE, URINE (UA) NEGATIVE (NEGATIVE); KETONES,URINE NEGATIVE (NEGATIVE); LEUKOCYTE ESTERASE ,URINE NEGATIVE (NEGATIVE); NITRITE,URINE NEGATIVE (NEGATIVE); PH,URINE 8 (4.5-8.0); PROTEIN,URINE 2+ (NEGATIVE); UROBILINOGEN,URINE NORMAL MG/DL (0.0-1.0)
--- NOTE | 2019-12-21 19:15 | Progress Note ---
DATE: 12/21/2019 SUBJECTIVE: This is a 58-year-old female, currently in bed. Has NG tube and failed weaning protocol. Patient is currently more awake, alert, but has generalized weakness. OBJECTIVE: VITAL SIGNS: Blood pressure is 119/68, pulse 102, saturation 94%, temperature 97.9. HEENT: Eyes are open. NECK: Supple. CHEST: Bilateral decreased breath sounds. CARDIOVASCULAR: Regular rhythm. No gallop. No murmur. ABDOMEN: Soft. EXTREMITIES: CCE. NEUROLOGICAL: Generalized weakness. LABORATORY DATA: White counts are 8000, hemoglobin 8.3, hematocrit 24. Chemistry panel, sodium 143, potassium 3.8, BUN 4, creatinine 0.6. ASSESSMENT: 1. Cardiopulmonary arrest. 2. Acute respiratory failure. 3. Aspiration pneumonia. 4. Anemia. 5. Hypokalemia. 6. Diabetes, poorly controlled. PLAN: We will currently continue iron. Continue insulin sliding scale. Continue PPI, lactobacillus. Waiting for swallow eval. Continue feeding. Frank Pinzon M.D. DR: SUDHAKAR JOB#: [id number] CC:
[2019-12-21 20:00] VITALS: BP 110/65
[2019-12-21] MEDS ORDERED: Dyna-Hex 2% Top Sol 2oz TOPIC SCH (20:00)
[2019-12-21] MEDS ORDERED: Iron Sucrose 100 MG in NS 55 ML IV SCH (21:00)
[2019-12-22] VITALS (7 sets, daily range): BP systolic 120–139; BP diastolic 65–81
[2019-12-22] MEDS: NovoLOG Insulin Flexpen SUBQ SCH ×4 (00:08→18:11)
[2019-12-22] MEDS: D5 1/2NS w/KCl 40meq 1000ml 1,000 ML IV SCH ×2 (03:27→19:14)
[2019-12-22] MEDS: Piperacillin/Tazobactam 3.375 GM in NS 110 ML IVPB SCH ×3 (03:27→19:14)
--- NOTE | 2019-12-22 06:57 | General Progress Note ---
Assessment/Plan Problem List: (1) DKA (diabetic ketoacidoses) ICD Codes: E11.10 - Type 2 diabetes mellitus with ketoacidosis without coma SNOMED: 962564811, 86522004 Qualifiers: Qualified Codes: E13.11 - Other specified diabetes mellitus with ketoacidosis with coma (2) Cardiac arrest ICD Codes: I46.9 - Cardiac arrest, cause unspecified SNOMED: 395901853 (3) Coffee ground emesis ICD Codes: K92.0 - Hematemesis SNOMED: 76900513 (4) Abnormal TSH ICD Codes: R79.89 - Other specified abnormal findings of blood chemistry SNOMED: 540708864 Assessment/Plan: continue Levemir 15 units bid continue Novolog sliding scale every 6 hours thyroid function studies suggestive of "sick euthyroid" no need for thyroid medications repeat thyroid function in 1-2 weeks Subjective ROS Limited/Unobtainable: Yes Allergies: Coded Allergies: No Known Allergies (Unverified , 12/11/19) Subjective events noted glucose values are mostly stable Item Value Date Time Bedside Blood Glucose 202 mg/dl H 12/22/19 0629 Bedside Blood Glucose 158 mg/dl H 12/22/19 0008 Bedside Blood Glucose 158 mg/dl H 12/21/19 2107 Bedside Blood Glucose 154 mg/dl H 12/21/19 1800 Bedside Blood Glucose 167 mg/dl H 12/21/19 1250 Bedside Blood Glucose 171 mg/dl H 12/21/19 0522 Bedside Blood Glucose 147 mg/dl H 12/20/19 2303 Objective Last 24 Hour Vital Signs Date Time Temp Pulse Resp B/P (MAP) Pulse Ox O2 Delivery O2 Flow Rate FiO2 12/22/19 04:00 98.2 93 20 124/81 (95) 98 95 12/22/19 03:58 103 12/22/19 00:00 97 12/22/19 00:00 98.1 94 20 124/65 (84) 98 95 12/21/19 20:00 112 12/21/19 20:00 98.4 105 19 110/65 (80) 96 108 109 12/21/19 19:17 95 Nasal Cannula 2.0 28 12/21/19 16:00 100 12/21/19 16:00 98.2 108 20 124/67 (86) 99 107 109 12/21/19 12:00 100 12/21/19 12:00 97.5 103 18 123/74 (90) 95 12/21/19 08:00 Nasal Cannula 2.0 12/21/19 08:00 97.9 102 20 119/68 (85) 93 12/21/19 08:00 94 12/21/19 07:25 95 Nasal Cannula 2.0 28 Intake and Output 12/21/19 12/22/19 19:00 07:00 Intake Total 100 ml 1125.0 ml Output Total 600 ml 2200 ml Balance -500 ml -1075.0 ml IV Total 525.0 ml Tube Feeding 100 ml 600 ml Output Urine Total 600 ml 2200 ml # Bowel Movements 2 Laboratory Tests 12/21/19 16:05: Urine Color Pale yellow, Urine Appearance Clear, Urine pH 8, Urine Specific [place] 1.015, Urine Protein 2+H, Urine Glucose (UA) Negative, Urine Ketones Negative, Urine Blood 3+H, Urine Nitrite Negative, Urine Bilirubin Negative, Urine Urobilinogen Normal, Urine Leukocyte Esterase Negative, Urine RBC 5-10H, Urine WBC 0-2, Urine Squamous Epithelial Cells Few, Urine Bacteria None 12/22/19 05:49: White Blood Count [Pending], Red Blood Count [Pending], Hemoglobin [Pending], Hematocrit [Pending], Mean Corpuscular Volume [Pending], Mean Corpuscular Hemoglobin [Pending], Mean Corpuscular Hemoglobin Concent [Pending], Red Cell Distribution Width [Pending], Platelet Count [Pending], Mean Platelet Volume [ Pending], Neutrophils (%) (Auto) [Pending], Lymphocytes (%) (Auto) [Pending], Monocytes (%) (Auto) [Pending], Eosinophils (%) (Auto) [Pending], Basophils (%) (Auto) [Pending], Sodium Level [Pending], Potassium Level [Pending], Chloride Level [Pending], Carbon Dioxide Level [Pending], Blood Urea Nitrogen [Pending], Creatinine [Pending], Estimat Glomerular Filtration Rate [Pending], Glucose Level [Pending], Calcium Level [Pending], Phosphorus Level [Pending], Magnesium Level [Pending], Total Bilirubin [Pending], Direct Bilirubin [Pending], Aspartate Amino Transf (AST/SGOT) [Pending], Alanine Aminotransferase (ALT/SGPT ) [Pending], Alkaline Phosphatase [Pending], C-Reactive Protein, Quantitative [ Pending], Total Protein [Pending], Albumin [Pending] Height (Feet): 5 Height (Inches): 5.00 Weight (Pounds): 161 General Appearance: no apparent distress Neck: normal alignment Cardiovascular: normal rate Respiratory/Chest: decreased breath sounds Abdomen: normal bowel sounds Pelvis: normal external exam Objective Current Medications Medications (Trade) Dose Ordered Sig/Esequiel Route PRN Reason Start Time Stop Time Status Last Admin Dose Admin Acetaminophen (Tylenol) 650 mg Q4H PRN GT Mild Pain (Pain Scale 1-3) 12/21/19 08:00 01/10/20 19:59 12/21/19 19:06 Acetaminophen (Tylenol) 650 mg Q4H PRN RECTAL Mild Pain (Pain Scale 1-3) 12/21/19 08:00 01/10/20 19:59 Chlorhexidine Gluconate (Bijal-Hex 2%) 1 applic DAILY@2000 TOPIC 12/21/19 20:00 03/11/20 19:59 12/21/19 20:40 Dextrose (Dextrose 50%) 25 ml Q30M PRN IV Hypoglycemia 12/21/19 07:30 03/12/20 01:59 Dextrose (Dextrose 50%) 50 ml Q30M PRN IV Hypoglycemia 12/21/19 07:30 03/12/20 01:59 Dextrose/ Electrolytes 1,000 ml @ 50 mls/hr Q20H IV 12/21/19 13:00 01/18/20 12:59 12/22/19 03:27 Insulin Aspart (NovoLOG) Q6HR SUBQ 12/21/19 12:00 03/12/20 04:59 12/22/19 06:29 Insulin Detemir (Levemir) 15 units Q12HR SUBQ 12/21/19 09:00 03/20/20 08:59 12/21/19 21:07 Iron Sucrose 100 mg/Sodium Chloride 60 ml @ 240 mls/hr BEDTIME IV 12/21/19 21:00 12/24/19 21:14 12/21/19 20:40 Lactobacillus Acidophilus (Culturelle) 1 tab THREE TIMES A DAY NG 12/21/19 09:00 03/18/20 12:59 12/21/19 18:29 Ondansetron HCl (Zofran) 4 mg Q6H PRN IVP Nausea & Vomiting 12/21/19 08:00 01/10/20 19:59 Pantoprazole (Protonix) 40 mg EVERY 12 HOURS IVP 12/21/19 09:00 01/11/20 08:59 12/21/19 20:41 Piperacillin Sod/ Tazobactam Sod 3.375 gm/Sodium Chloride 110 ml @ 27.5 mls/hr Q8H IVPB 12/21/19 11:00 12/28/19 10:59 12/22/19 03:27 Potassium Chloride (K-Dur) 40 meq BID ORAL 12/21/19 09:00 03/17/20 08:59 12/21/19 18:29 Spironolactone (Aldactone) 25 mg BID ORAL 12/21/19 09:00 01/17/20 10:59 12/21/19 18:29 Stfe Ortega MD December 22, 2019 06:57
[2019-12-22 07:10] LABS: BASOPHILS % (AUTO) 0.8 % (0.0-2.0); EOSINOPHILS % (AUTO) 3.4 % (0.0-3.0); HEMATOCRIT 25.3 % (37.0-47.0); HEMOGLOBIN 8.6 G/DL (12.0-16.0); LYMPHOCYTES % (AUTO) 18.7 % (20.0-45.0); MEAN CORPUSCULAR VOLUME 89 FL (80-99); MONOCYTES % (AUTO) 4.4 % (1.0-10.0); NEUTROPHILS % (AUTO) 72.7 % (45.0-75.0); PLATELET COUNT 334 K/UL (150-450); RED BLOOD COUNT 2.83 M/UL (4.20-5.40); RED CELL DISTRIBUTION WIDTH 12.6 % (11.6-14.8); WHITE BLOOD COUNT 8.1 K/UL (4.8-10.8)
[2019-12-22 07:18] LABS: ANION GAP 4 mmol/L (5-15); BLOOD UREA NITROGEN 7 mg/dL (7-18); CALCIUM 8.1 MG/DL (8.5-10.1); CARBON DIOXIDE 33 MMOL/L (21-32); CHLORIDE 103 MMOL/L (98-107); CREATININE 0.7 MG/DL (0.55-1.30); POTASSIUM 4.1 MMOL/L (3.5-5.1); SODIUM 140 MMOL/L (136-145)
[2019-12-22 07:25] LABS: ALANINE AMINOTRANSFERASE 21 U/L (12-78); ALBUMIN 1.3 G/DL (3.4-5.0); ALKALINE PHOSPHATASE 77 U/L (46-116); ASPARTATE AMINO TRANSFERASE 18 U/L (15-37); BILIRUBIN,DIRECT < 0.1 MG/DL (0.0-0.3); BILIRUBIN,TOTAL 0.2 MG/DL (0.2-1.0); PHOSPHORUS 3.4 MG/DL (2.5-4.9)
--- NOTE | 2019-12-22 09:20 | General Progress Note ---
Assessment/Plan Problem List: (1) Coffee ground emesis ICD Codes: K92.0 - Hematemesis SNOMED: 75749952 (2) High blood urea nitrogen (BUN) ICD Codes: R79.9 - Abnormal finding of blood chemistry, unspecified SNOMED: 771563148, 553412230 (3) High serum creatine ICD Codes: R79.89 - Other specified abnormal findings of blood chemistry SNOMED: 122258534, 665788822 (4) DKA (diabetic ketoacidoses) ICD Codes: E11.10 - Type 2 diabetes mellitus with ketoacidosis without coma SNOMED: 245449608, 77132113 Qualifiers: Qualified Codes: E13.11 - Other specified diabetes mellitus with ketoacidosis with coma (5) Altered mental status ICD Codes: R41.82 - Altered mental status, unspecified SNOMED: 231829578, 68190183 Qualifiers: Qualified Codes: R41.82 - Altered mental status, unspecified (6) Cardiac arrest ICD Codes: I46.9 - Cardiac arrest, cause unspecified SNOMED: 458783292 (7) Respiratory distress ICD Codes: R06.03 - Acute respiratory distress SNOMED: 901502725 Assessment/Plan: s/p 2 units prbc in this admission positive stool ob x1 ppi iv BID monitor H&H transfuse to keep HGB above 7.5 NGTF D/W the nurse speech eval appreciated>> NEEDS VAS, pending when off of isolation PEG if needed + diarrhea>>> C.diff neg>>> add prn imodium will fu Subjective ROS Limited/Unobtainable: No Allergies: Coded Allergies: No Known Allergies (Unverified , 12/11/19) Objective Last 24 Hour Vital Signs Date Time Temp Pulse Resp B/P (MAP) Pulse Ox O2 Delivery O2 Flow Rate FiO2 12/22/19 08:00 98.2 103 20 130/80 (97) 95 12/22/19 04:00 98.2 93 20 124/81 (95) 98 95 12/22/19 03:58 103 12/22/19 00:00 97 12/22/19 00:00 98.1 94 20 124/65 (84) 98 95 12/21/19 20:00 112 12/21/19 20:00 98.4 105 19 110/65 (80) 96 108 109 12/21/19 19:17 95 Nasal Cannula 2.0 28 12/21/19 16:00 100 12/21/19 16:00 98.2 108 20 124/67 (86) 99 107 109 12/21/19 12:00 100 12/21/19 12:00 97.5 103 18 123/74 (90) 95 Intake and Output 12/21/19 12/22/19 19:00 07:00 Intake Total 100 ml 1125.0 ml Output Total 600 ml 2200 ml Balance -500 ml -1075.0 ml IV Total 525.0 ml Tube Feeding 100 ml 600 ml Output Urine Total 600 ml 2200 ml # Bowel Movements 2 Laboratory Tests 12/21/19 16:05: Urine Color Pale yellow, Urine Appearance Clear, Urine pH 8, Urine Specific [place] 1.015, Urine Protein 2+H, Urine Glucose (UA) Negative, Urine Ketones Negative, Urine Blood 3+H, Urine Nitrite Negative, Urine Bilirubin Negative, Urine Urobilinogen Normal, Urine Leukocyte Esterase Negative, Urine RBC 5-10H, Urine WBC 0-2, Urine Squamous Epithelial Cells Few, Urine Bacteria None 12/22/19 05:49: White Blood Count 8.1, Red Blood Count 2.83L, Hemoglobin 8.6L, Hematocrit 25.3L , Mean Corpuscular Volume 89, Mean Corpuscular Hemoglobin 30.3, Mean Corpuscular Hemoglobin Concent 33.9, Red Cell Distribution Width 12.6, Platelet Count 334, Mean Platelet Volume 6.5, Neutrophils (%) (Auto) 72.7, Lymphocytes (% ) (Auto) 18.7L, Monocytes (%) (Auto) 4.4, Eosinophils (%) (Auto) 3.4H, Basophils (%) (Auto) 0.8, Sodium Level 140, Potassium Level 4.1, Chloride Level 103, Carbon Dioxide Level 33H, Anion Gap 4L, Blood Urea Nitrogen 7, Creatinine 0.7, Estimat Glomerular Filtration Rate > 60, Glucose Level 232H, Calcium Level 8.1L, Phosphorus Level 3.4, Magnesium Level 1.9, Total Bilirubin 0.2, Direct Bilirubin < 0.1, Aspartate Amino Transf (AST/SGOT) 18, Alanine Aminotransferase (ALT/SGPT) 21, Alkaline Phosphatase 77, C-Reactive Protein, Quantitative 12.7H, Total Protein 5.6L, Albumin 1.3L Height (Feet): 5 Height (Inches): 5.00 Weight (Pounds): 161 General Appearance: no apparent distress EENT: normal ENT inspection Neck: supple Cardiovascular: normal rate Respiratory/Chest: decreased breath sounds Abdomen: soft, hypoactive bowel sounds Extremities: non-tender Maykel Stephen MD December 22, 2019 09:20
[2019-12-22] MEDS: Spironolactone 25mg tab ORAL SCH ×2 (09:29→18:10)
[2019-12-22] MEDS: Pantoprazole Inj IVP SCH ×2 (09:29→21:53)
[2019-12-22] MEDS: Lactobacillus-GG tablet NG SCH ×3 (09:29→18:10)
[2019-12-22] MEDS: Levemir Flexpen SUBQ SCH ×2 (09:40→22:10)
--- NOTE | 2019-12-22 10:05 | Infectious Diseases Prog Note ---
Assessment/Plan Assessment/Plan antibiotics : zosyn A 1. pneumonia COVID 19 test negative 2. Diabetic ketoacidosis resolving 3. Renal failure resolved 4. Leukocytosis resolved 5. fever improving PLAN: 1. continue zosyn 2 more days 2. will follow up cultures Subjective Constitutional: Denies: fever, chills Respiratory: Denies: shortness of breath, dry cough Gastrointestinal/Abdominal: Denies: nausea, vomiting, diarrhea Musculoskeletal: Denies: pain Allergies: Coded Allergies: No Known Allergies (Unverified , 12/11/19) Objective Vital Signs Last 24 Hour Vital Signs Date Time Temp Pulse Resp B/P (MAP) Pulse Ox O2 Delivery O2 Flow Rate FiO2 12/22/19 08:00 98.2 103 20 130/80 (97) 95 12/22/19 04:00 98.2 93 20 124/81 (95) 98 95 12/22/19 03:58 103 12/22/19 00:00 97 12/22/19 00:00 98.1 94 20 124/65 (84) 98 95 12/21/19 20:00 112 12/21/19 20:00 98.4 105 19 110/65 (80) 96 108 109 12/21/19 19:17 95 Nasal Cannula 2.0 28 12/21/19 16:00 100 12/21/19 16:00 98.2 108 20 124/67 (86) 99 107 109 12/21/19 12:00 100 12/21/19 12:00 97.5 103 18 123/74 (90) 95 Height (Feet): 5 Height (Inches): 5.00 Weight (Pounds): 161 Respiratory/Chest: lungs clear Cardiovascular: normal rate, regular rhythm, no gallop/murmur Abdomen: soft, non tender Extremities: no edema Microbiology Date/Time Source Procedure Growth Status 12/19/19 11:30 Stool Clostridium difficile Toxin Assay - Final Complete Laboratory Tests Test 12/21/19 16:05 12/22/19 05:49 Urine Color Pale yellow Urine Appearance Clear Urine pH 8 (4.5-8.0) Urine Specific [place] 1.015 (1.005-1.035) Urine Protein 2+ (NEGATIVE) H Urine Glucose (UA) Negative (NEGATIVE) Urine Ketones Negative (NEGATIVE) Urine Blood 3+ (NEGATIVE) H Urine Nitrite Negative (NEGATIVE) Urine Bilirubin Negative (NEGATIVE) Urine Urobilinogen Normal MG/DL (0.0-1.0) Urine Leukocyte Esterase Negative (NEGATIVE) Urine RBC 5-10 /HPF (0 - 2) H Urine WBC 0-2 /HPF (0 - 2) Urine Squamous Epithelial Cells Few /LPF (NONE/OCC) Urine Bacteria None /HPF (NONE) White Blood Count 8.1 K/UL (4.8-10.8) Red Blood Count 2.83 M/UL (4.20-5.40) L Hemoglobin 8.6 G/DL (12.0-16.0) L Hematocrit 25.3 % (37.0-47.0) L Mean Corpuscular Volume 89 FL (80-99) Mean Corpuscular Hemoglobin 30.3 PG (27.0-31.0) Mean Corpuscular Hemoglobin Concent 33.9 G/DL (32.0-36.0) Red Cell Distribution Width 12.6 % (11.6-14.8) Platelet Count 334 K/UL (150-450) Mean Platelet Volume 6.5 FL (6.5-10.1) Neutrophils (%) (Auto) 72.7 % (45.0-75.0) Lymphocytes (%) (Auto) 18.7 % (20.0-45.0) L Monocytes (%) (Auto) 4.4 % (1.0-10.0) Eosinophils (%) (Auto) 3.4 % (0.0-3.0) H Basophils (%) (Auto) 0.8 % (0.0-2.0) Sodium Level 140 MMOL/L (136-145) Potassium Level 4.1 MMOL/L (3.5-5.1) Chloride Level 103 MMOL/L (98-107) Carbon Dioxide Level 33 MMOL/L (21-32) H Anion Gap 4 mmol/L (5-15) L Blood Urea Nitrogen 7 mg/dL (7-18) Creatinine 0.7 MG/DL (0.55-1.30) Estimat Glomerular Filtration Rate > 60 mL/min (>60) Glucose Level 232 MG/DL (74-106) H Calcium Level 8.1 MG/DL (8.5-10.1) L Phosphorus Level 3.4 MG/DL (2.5-4.9) Magnesium Level 1.9 MG/DL (1.8-2.4) Total Bilirubin 0.2 MG/DL (0.2-1.0) Direct Bilirubin < 0.1 MG/DL (0.0-0.3) Aspartate Amino Transf (AST/SGOT) 18 U/L (15-37) Alanine Aminotransferase (ALT/SGPT) 21 U/L (12-78) Alkaline Phosphatase 77 U/L (46-116) C-Reactive Protein, Quantitative 12.7 mg/dL (0.00-0.90) H Total Protein 5.6 G/DL (6.4-8.2) L Albumin 1.3 G/DL (3.4-5.0) L Current Medications Medications (Trade) Dose Ordered Sig/Esequiel Route PRN Reason Start Time Stop Time Status Last Admin Dose Admin Acetaminophen (Tylenol) 650 mg Q4H PRN GT Mild Pain (Pain Scale 1-3) 12/21/19 08:00 01/10/20 19:59 12/21/19 19:06 Acetaminophen (Tylenol) 650 mg Q4H PRN RECTAL Mild Pain (Pain Scale 1-3) 12/21/19 08:00 01/10/20 19:59 Chlorhexidine Gluconate (Bijal-Hex 2%) 1 applic DAILY@2000 TOPIC 12/21/19 20:00 03/11/20 19:59 12/21/19 20:40 Dextrose (Dextrose 50%) 25 ml Q30M PRN IV Hypoglycemia 12/21/19 07:30 03/12/20 01:59 Dextrose (Dextrose 50%) 50 ml Q30M PRN IV Hypoglycemia 12/21/19 07:30 03/12/20 01:59 Dextrose/ Electrolytes 1,000 ml @ 50 mls/hr Q20H IV 12/21/19 13:00 01/18/20 12:59 12/22/19 03:27 Insulin Aspart (NovoLOG) Q6HR SUBQ 12/21/19 12:00 03/12/20 04:59 12/22/19 06:29 Insulin Detemir (Levemir) 15 units Q12HR SUBQ 12/21/19 09:00 03/20/20 08:59 12/22/19 09:40 Iron Sucrose 100 mg/Sodium Chloride 60 ml @ 240 mls/hr BEDTIME IV 12/21/19 21:00 12/24/19 21:14 12/21/19 20:40 Lactobacillus Acidophilus (Culturelle) 1 tab THREE TIMES A DAY NG 12/21/19 09:00 03/18/20 12:59 12/22/19 09:29 Loperamide HCl (Imodium) 2 mg Q4H PRN ORAL Diarrhea 12/22/19 09:30 01/21/20 09:29 Ondansetron HCl (Zofran) 4 mg Q6H PRN IVP Nausea & Vomiting 12/21/19 08:00 01/10/20 19:59 Pantoprazole (Protonix) 40 mg EVERY 12 HOURS IVP 12/21/19 09:00 01/11/20 08:59 12/22/19 09:29 Piperacillin Sod/ Tazobactam Sod 3.375 gm/Sodium Chloride 110 ml @ 27.5 mls/hr Q8H IVPB 12/21/19 11:00 12/28/19 10:59 12/22/19 03:27 Potassium Chloride (K-Dur) 40 meq BID ORAL 12/21/19 09:00 03/17/20 08:59 12/22/19 09:29 Spironolactone (Aldactone) 25 mg BID ORAL 12/21/19 09:00 01/17/20 10:59 12/22/19 09:29 Eden Salvador MD December 22, 2019 10:05
--- NOTE | 2019-12-22 10:49 | Pulmonology Progress Note ---
Subjective ROS Limited/Unobtainable: No Interval Events: Extubated 12/13/19; NGT in place Constitutional: Denies: fever, chills HEENT: Repors: no symptoms Respiratory: Reports: no symptoms Cardiovascular: Reports: no symptoms Gastrointestinal/Abdominal: Denies: nausea, vomiting, diarrhea Genitourinary: Reports: no symptoms Musculoskeletal: Denies: pain Allergies: Coded Allergies: No Known Allergies (Unverified , 12/11/19) All Systems: reviewed and negative except above Objective Last 24 Hour Vital Signs Date Time Temp Pulse Resp B/P (MAP) Pulse Ox O2 Delivery O2 Flow Rate FiO2 12/22/19 08:00 98.2 103 20 130/80 (97) 95 12/22/19 04:00 98.2 93 20 124/81 (95) 98 95 12/22/19 03:58 103 12/22/19 00:00 97 12/22/19 00:00 98.1 94 20 124/65 (84) 98 95 12/21/19 20:00 112 12/21/19 20:00 98.4 105 19 110/65 (80) 96 108 109 12/21/19 19:17 95 Nasal Cannula 2.0 28 12/21/19 16:00 100 12/21/19 16:00 98.2 108 20 124/67 (86) 99 107 109 12/21/19 12:00 100 12/21/19 12:00 97.5 103 18 123/74 (90) 95 Intake and Output 12/21/19 12/22/19 19:00 07:00 Intake Total 100 ml 1125.0 ml Output Total 600 ml 2200 ml Balance -500 ml -1075.0 ml IV Total 525.0 ml Tube Feeding 100 ml 600 ml Output Urine Total 600 ml 2200 ml # Bowel Movements 2 General Appearance: no acute distress HEENT: normocephalic Respiratory: chest wall non-tender, lungs clear Cardiovascular: normal peripheral pulses, normal rate Abdomen: normal bowel sounds Microbiology Date/Time Source Procedure Growth Status 12/19/19 11:30 Stool Clostridium difficile Toxin Assay - Final Complete Laboratory Tests 12/21/19 16:05: Urine Color Pale yellow, Urine Appearance Clear, Urine pH 8, Urine Specific [place] 1.015, Urine Protein 2+H, Urine Glucose (UA) Negative, Urine Ketones Negative, Urine Blood 3+H, Urine Nitrite Negative, Urine Bilirubin Negative, Urine Urobilinogen Normal, Urine Leukocyte Esterase Negative, Urine RBC 5-10H, Urine WBC 0-2, Urine Squamous Epithelial Cells Few, Urine Bacteria None 12/22/19 05:49: White Blood Count 8.1, Red Blood Count 2.83L, Hemoglobin 8.6L, Hematocrit 25.3L , Mean Corpuscular Volume 89, Mean Corpuscular Hemoglobin 30.3, Mean Corpuscular Hemoglobin Concent 33.9, Red Cell Distribution Width 12.6, Platelet Count 334, Mean Platelet Volume 6.5, Neutrophils (%) (Auto) 72.7, Lymphocytes (% ) (Auto) 18.7L, Monocytes (%) (Auto) 4.4, Eosinophils (%) (Auto) 3.4H, Basophils (%) (Auto) 0.8, Sodium Level 140, Potassium Level 4.1, Chloride Level 103, Carbon Dioxide Level 33H, Anion Gap 4L, Blood Urea Nitrogen 7, Creatinine 0.7, Estimat Glomerular Filtration Rate > 60, Glucose Level 232H, Calcium Level 8.1L, Phosphorus Level 3.4, Magnesium Level 1.9, Total Bilirubin 0.2, Direct Bilirubin < 0.1, Aspartate Amino Transf (AST/SGOT) 18, Alanine Aminotransferase (ALT/SGPT) 21, Alkaline Phosphatase 77, C-Reactive Protein, Quantitative 12.7H, Total Protein 5.6L, Albumin 1.3L Current Medications Medications (Trade) Dose Ordered Sig/Esequiel Route PRN Reason Start Time Stop Time Status Last Admin Dose Admin Acetaminophen (Tylenol) 650 mg Q4H PRN GT Mild Pain (Pain Scale 1-3) 12/21/19 08:00 01/10/20 19:59 12/21/19 19:06 Acetaminophen (Tylenol) 650 mg Q4H PRN RECTAL Mild Pain (Pain Scale 1-3) 12/21/19 08:00 01/10/20 19:59 Chlorhexidine Gluconate (Bijal-Hex 2%) 1 applic DAILY@1999 TOPIC 12/21/19 20:00 03/11/20 19:59 12/21/19 20:40 Dextrose (Dextrose 50%) 25 ml Q30M PRN IV Hypoglycemia 12/21/19 07:30 03/12/20 01:59 Dextrose (Dextrose 50%) 50 ml Q30M PRN IV Hypoglycemia 12/21/19 07:30 03/12/20 01:59 Dextrose/ Electrolytes 1,000 ml @ 50 mls/hr Q20H IV 12/21/19 13:00 01/18/20 12:59 12/22/19 03:27 Insulin Aspart (NovoLOG) Q6HR SUBQ 12/21/19 12:00 03/12/20 04:59 12/22/19 06:29 Insulin Detemir (Levemir) 15 units Q12HR SUBQ 12/21/19 09:00 03/20/20 08:59 12/22/19 09:40 Iron Sucrose 100 mg/Sodium Chloride 60 ml @ 240 mls/hr BEDTIME IV 12/21/19 21:00 12/24/19 21:14 12/21/19 20:40 Lactobacillus Acidophilus (Culturelle) 1 tab THREE TIMES A DAY NG 12/21/19 09:00 03/18/20 12:59 12/22/19 09:29 Loperamide HCl (Imodium) 2 mg Q4H PRN ORAL Diarrhea 12/22/19 09:30 01/21/20 09:29 Ondansetron HCl (Zofran) 4 mg Q6H PRN IVP Nausea & Vomiting 12/21/19 08:00 01/10/20 19:59 Pantoprazole (Protonix) 40 mg EVERY 12 HOURS IVP 12/21/19 09:00 01/11/20 08:59 12/22/19 09:29 Piperacillin Sod/ Tazobactam Sod 3.375 gm/Sodium Chloride 110 ml @ 27.5 mls/hr Q8H IVPB 12/21/19 11:00 12/28/19 10:59 12/22/19 03:27 Potassium Chloride (K-Dur) 40 meq BID ORAL 12/21/19 09:00 03/17/20 08:59 12/22/19 09:29 Spironolactone (Aldactone) 25 mg BID ORAL 12/21/19 09:00 01/17/20 10:59 12/22/19 09:29 Assessment/Plan Assessment/Plan IMPRESSION: 1. DKA. Resolved 2. Upper GI bleed. 3. Respiratory failure. Now extubated 4. Lactic acidosis. DISCUSSION: Continue antibiotics. GI following for upper gastrointestinal bleeding, Not on pressors. I will continue oxygen, Protonix, DVT prophylaxis. Saturating 100% on 4L/min O2 Seen in [facility] Await swallow eval Begin enteral feedings if swallow eval passed Has NGT in place Robin Schaffer M.D. Robin Schaffer MD December 22, 2019 10:49
[2019-12-22] MEDS ORDERED: Varibar Pudding 230ml MC PRN (11:45)
[2019-12-22] MEDS ORDERED: Varibar Honey 250ml MC PRN (11:45)
[2019-12-22] MEDS ORDERED: Varibar Nectar 240ml MC PRN (11:45)
--- NOTE | 2019-12-22 12:25 | Nephrology Progress Note ---
Assessment/Plan Problem List: (1) DEANDRA (acute kidney injury) Assessment: Resolved (2) Hypotension (3) Cardiac arrest (4) DKA (diabetic ketoacidoses) (5) Respiratory distress (6) Coffee ground emesis (7) Electrolyte imbalance Assessment Acute renal failure which probably is superimposed on chronic kidney disease History of diabetes mellitus, most likely diabetic nephropathy. Presents with diabetic ketoacidosis Acute respiratory failure requiring intubation and mechanical ventilation Aspiration pneumonia, upper GI bleed Proteinuria and severe hypoalbuminemia should rule out nephrotic range proteinuria Anemia Electrolyte imbalances Plan Electrolytes seems to be reasonably corrected Off Reglan as the patient has diarrhea C. difficile negative Patient is doing well post extubation Will replace potassium, magnesium, and phosphorus as needed Previously 2 units of packed RBCs was transfused Hydrate as needed and monitor electrolytes Per orders Previously Monitor renal parameters Avoid nephrotoxic's Anemia work-up Urine studies Keep blood sugar and blood pressure in check Per consultants Discussed with RN Subjective ROS Limited/Unobtainable: No Constitutional: Reports: malaise, weakness Objective Objective Last 24 Hour Vital Signs Date Time Temp Pulse Resp B/P (MAP) Pulse Ox O2 Delivery O2 Flow Rate FiO2 12/22/19 10:00 Nasal Cannula 2.0 12/22/19 08:00 114 12/22/19 08:00 98.2 103 20 130/80 (97) 95 12/22/19 04:00 98.2 93 20 124/81 (95) 98 95 12/22/19 03:58 103 12/22/19 00:00 97 12/22/19 00:00 98.1 94 20 124/65 (84) 98 95 12/21/19 20:00 112 12/21/19 20:00 98.4 105 19 110/65 (80) 96 108 109 12/21/19 19:17 95 Nasal Cannula 2.0 28 12/21/19 16:00 100 12/21/19 16:00 98.2 108 20 124/67 (86) 99 107 109 Intake and Output 12/21/19 12/22/19 19:00 07:00 Intake Total 100 ml 1125.0 ml Output Total 600 ml 2200 ml Balance -500 ml -1075.0 ml IV Total 525.0 ml Tube Feeding 100 ml 600 ml Output Urine Total 600 ml 2200 ml # Bowel Movements 2 Laboratory Tests 12/21/19 16:05: Urine Color Pale yellow, Urine Appearance Clear, Urine pH 8, Urine Specific [place] 1.015, Urine Protein 2+H, Urine Glucose (UA) Negative, Urine Ketones Negative, Urine Blood 3+H, Urine Nitrite Negative, Urine Bilirubin Negative, Urine Urobilinogen Normal, Urine Leukocyte Esterase Negative, Urine RBC 5-10H, Urine WBC 0-2, Urine Squamous Epithelial Cells Few, Urine Bacteria None 12/22/19 05:49: White Blood Count 8.1, Red Blood Count 2.83L, Hemoglobin 8.6L, Hematocrit 25.3L , Mean Corpuscular Volume 89, Mean Corpuscular Hemoglobin 30.3, Mean Corpuscular Hemoglobin Concent 33.9, Red Cell Distribution Width 12.6, Platelet Count 334, Mean Platelet Volume 6.5, Neutrophils (%) (Auto) 72.7, Lymphocytes (% ) (Auto) 18.7L, Monocytes (%) (Auto) 4.4, Eosinophils (%) (Auto) 3.4H, Basophils (%) (Auto) 0.8, Sodium Level 140, Potassium Level 4.1, Chloride Level 103, Carbon Dioxide Level 33H, Anion Gap 4L, Blood Urea Nitrogen 7, Creatinine 0.7, Estimat Glomerular Filtration Rate > 60, Glucose Level 232H, Calcium Level 8.1L, Phosphorus Level 3.4, Magnesium Level 1.9, Total Bilirubin 0.2, Direct Bilirubin < 0.1, Aspartate Amino Transf (AST/SGOT) 18, Alanine Aminotransferase (ALT/SGPT) 21, Alkaline Phosphatase 77, C-Reactive Protein, Quantitative 12.7H, Total Protein 5.6L, Albumin 1.3L Height (Feet): 5 Height (Inches): 5.00 Weight (Pounds): 161 General Appearance: no apparent distress, lethargic Cardiovascular: tachycardia Respiratory/Chest: decreased breath sounds Abdomen: distended Don Ventura MD December 22, 2019 12:25
--- NOTE | 2019-12-22 14:14 | Cardiac Electrophysiology PN ---
Assessment/Plan Assessment/Plan 1. S/P Septic shock. Off pressors. EF 60%. EKG shows sinus tachycardia with no acute ST-T wave abnormalities. 2. S/P Respiratory failure, Extubated 3. Hypotension. Resolved 4. Coffee-ground emesis. S/P 2 units of PRBC 5. S/P Diabetic ketoacidosis 6. Persistent hypokalemia. Improved by aldactone and KCL po by Dr Ventura 7. Failed swallow eval. NG tube DW RN Subjective Subjective 1st covid negative on 12/13. Second Covid pending.No events in SR Objective Last 24 Hour Vital Signs Date Time Temp Pulse Resp B/P (MAP) Pulse Ox O2 Delivery O2 Flow Rate FiO2 12/22/19 12:00 102 12/22/19 12:00 98.0 101 18 125/75 (92) 97 12/22/19 10:00 Nasal Cannula 2.0 12/22/19 08:00 114 12/22/19 08:00 98.2 103 20 130/80 (97) 95 12/22/19 04:00 98.2 93 20 124/81 (95) 98 95 12/22/19 03:58 103 12/22/19 00:00 97 12/22/19 00:00 98.1 94 20 124/65 (84) 98 95 12/21/19 20:00 112 12/21/19 20:00 98.4 105 19 110/65 (80) 96 108 109 12/21/19 19:17 95 Nasal Cannula 2.0 28 12/21/19 16:00 100 12/21/19 16:00 98.2 108 20 124/67 (86) 99 107 109 Intake and Output 12/21/19 12/22/19 19:00 07:00 Intake Total 100 ml 1125.0 ml Output Total 600 ml 2200 ml Balance -500 ml -1075.0 ml IV Total 525.0 ml Tube Feeding 100 ml 600 ml Output Urine Total 600 ml 2200 ml # Bowel Movements 2 Laboratory Tests Test 12/21/19 16:05 12/22/19 05:49 Urine Color Pale yellow Urine Appearance Clear Urine pH 8 (4.5-8.0) Urine Specific [place] 1.015 (1.005-1.035) Urine Protein 2+ (NEGATIVE) H Urine Glucose (UA) Negative (NEGATIVE) Urine Ketones Negative (NEGATIVE) Urine Blood 3+ (NEGATIVE) H Urine Nitrite Negative (NEGATIVE) Urine Bilirubin Negative (NEGATIVE) Urine Urobilinogen Normal MG/DL (0.0-1.0) Urine Leukocyte Esterase Negative (NEGATIVE) Urine RBC 5-10 /HPF (0 - 2) H Urine WBC 0-2 /HPF (0 - 2) Urine Squamous Epithelial Cells Few /LPF (NONE/OCC) Urine Bacteria None /HPF (NONE) White Blood Count 8.1 K/UL (4.8-10.8) Red Blood Count 2.83 M/UL (4.20-5.40) L Hemoglobin 8.6 G/DL (12.0-16.0) L Hematocrit 25.3 % (37.0-47.0) L Mean Corpuscular Volume 89 FL (80-99) Mean Corpuscular Hemoglobin 30.3 PG (27.0-31.0) Mean Corpuscular Hemoglobin Concent 33.9 G/DL (32.0-36.0) Red Cell Distribution Width 12.6 % (11.6-14.8) Platelet Count 334 K/UL (150-450) Mean Platelet Volume 6.5 FL (6.5-10.1) Neutrophils (%) (Auto) 72.7 % (45.0-75.0) Lymphocytes (%) (Auto) 18.7 % (20.0-45.0) L Monocytes (%) (Auto) 4.4 % (1.0-10.0) Eosinophils (%) (Auto) 3.4 % (0.0-3.0) H Basophils (%) (Auto) 0.8 % (0.0-2.0) Sodium Level 140 MMOL/L (136-145) Potassium Level 4.1 MMOL/L (3.5-5.1) Chloride Level 103 MMOL/L (98-107) Carbon Dioxide Level 33 MMOL/L (21-32) H Anion Gap 4 mmol/L (5-15) L Blood Urea Nitrogen 7 mg/dL (7-18) Creatinine 0.7 MG/DL (0.55-1.30) Estimat Glomerular Filtration Rate > 60 mL/min (>60) Glucose Level 232 MG/DL (74-106) H Calcium Level 8.1 MG/DL (8.5-10.1) L Phosphorus Level 3.4 MG/DL (2.5-4.9) Magnesium Level 1.9 MG/DL (1.8-2.4) Total Bilirubin 0.2 MG/DL (0.2-1.0) Direct Bilirubin < 0.1 MG/DL (0.0-0.3) Aspartate Amino Transf (AST/SGOT) 18 U/L (15-37) Alanine Aminotransferase (ALT/SGPT) 21 U/L (12-78) Alkaline Phosphatase 77 U/L (46-116) C-Reactive Protein, Quantitative 12.7 mg/dL (0.00-0.90) H Total Protein 5.6 G/DL (6.4-8.2) L Albumin 1.3 G/DL (3.4-5.0) L Objective HEAD AND NECK: No JVD. NGT feeding LUNGS: Coarse rhonchi. CARDIOVASCULAR: Irregular S1-S2 and tachycardic. ABDOMEN: Soft. EXTREMITIES: No pitting edema. Gerardo Dyer MD December 22, 2019 14:14
[2019-12-22] MEDS ORDERED: D5 1/2NS w/KCl 40meq 1000ml 1,000 ML IV SCH (16:08)
--- NOTE | 2019-12-22 17:23 | Surgery Progress Note ---
Surgery Progress Note Subjective Additional Comments continuous improvement facilitator study noted ? PEG labs reviewed exam stable Objective Last 24 Hour Vital Signs Date Time Temp Pulse Resp B/P (MAP) Pulse Ox O2 Delivery O2 Flow Rate FiO2 12/22/19 16:00 117 12/22/19 16:00 98.1 111 20 120/66 (84) 96 12/22/19 12:00 102 12/22/19 12:00 98.0 101 18 125/75 (92) 97 12/22/19 10:00 Nasal Cannula 2.0 12/22/19 08:00 114 12/22/19 08:00 98.2 103 20 130/80 (97) 95 12/22/19 04:00 98.2 93 20 124/81 (95) 98 95 12/22/19 03:58 103 12/22/19 00:00 97 12/22/19 00:00 98.1 94 20 124/65 (84) 98 95 12/21/19 20:00 112 12/21/19 20:00 98.4 105 19 110/65 (80) 96 108 109 12/21/19 19:17 95 Nasal Cannula 2.0 28 I&O Intake and Output 12/21/19 12/22/19 19:00 07:00 Intake Total 100 ml 1125.0 ml Output Total 600 ml 2200 ml Balance -500 ml -1075.0 ml IV Total 525.0 ml Tube Feeding 100 ml 600 ml Output Urine Total 600 ml 2200 ml # Bowel Movements 2 Dressing: other Wound: other Drains: other Cardiovascular: RSR Respiratory: decreased breath sounds Abdomen: soft, non-tender, present bowel sounds Extremities: no cyanosis, other Laboratory Tests Test 12/22/19 05:49 White Blood Count 8.1 K/UL (4.8-10.8) Red Blood Count 2.83 M/UL (4.20-5.40) L Hemoglobin 8.6 G/DL (12.0-16.0) L Hematocrit 25.3 % (37.0-47.0) L Mean Corpuscular Volume 89 FL (80-99) Mean Corpuscular Hemoglobin 30.3 PG (27.0-31.0) Mean Corpuscular Hemoglobin Concent 33.9 G/DL (32.0-36.0) Red Cell Distribution Width 12.6 % (11.6-14.8) Platelet Count 334 K/UL (150-450) Mean Platelet Volume 6.5 FL (6.5-10.1) Neutrophils (%) (Auto) 72.7 % (45.0-75.0) Lymphocytes (%) (Auto) 18.7 % (20.0-45.0) L Monocytes (%) (Auto) 4.4 % (1.0-10.0) Eosinophils (%) (Auto) 3.4 % (0.0-3.0) H Basophils (%) (Auto) 0.8 % (0.0-2.0) Sodium Level 140 MMOL/L (136-145) Potassium Level 4.1 MMOL/L (3.5-5.1) Chloride Level 103 MMOL/L (98-107) Carbon Dioxide Level 33 MMOL/L (21-32) H Anion Gap 4 mmol/L (5-15) L Blood Urea Nitrogen 7 mg/dL (7-18) Creatinine 0.7 MG/DL (0.55-1.30) Estimat Glomerular Filtration Rate > 60 mL/min (>60) Glucose Level 232 MG/DL (74-106) H Calcium Level 8.1 MG/DL (8.5-10.1) L Phosphorus Level 3.4 MG/DL (2.5-4.9) Magnesium Level 1.9 MG/DL (1.8-2.4) Total Bilirubin 0.2 MG/DL (0.2-1.0) Direct Bilirubin < 0.1 MG/DL (0.0-0.3) Aspartate Amino Transf (AST/SGOT) 18 U/L (15-37) Alanine Aminotransferase (ALT/SGPT) 21 U/L (12-78) Alkaline Phosphatase 77 U/L (46-116) C-Reactive Protein, Quantitative 12.7 mg/dL (0.00-0.90) H Total Protein 5.6 G/DL (6.4-8.2) L Albumin 1.3 G/DL (3.4-5.0) L Plan Problems: (1) Cardiac arrest (2) DKA (diabetic ketoacidoses) (3) Respiratory distress (4) Altered mental status (5) Coffee ground emesis Assessment & Plan: Coffee-ground emesis concerning for GI bleed. Transfuse PRBC now stable. No acute active bleeding noted. Discussed with GI. Will follow with recommendations hold on acute surgical intervention MBSS with 2L nasal cannula. RR appears slightly elevated. Patient given PO trials barium liquids in various consistencies. INITIAL RESULTS: Patient presenting with moderate to moderately severe oropharyngeal dysphagia. Initial review of images reveals the following: -Thin Liquids: Radiographic evidence of penetration and trace aspiration. -[place] Thick: Radiographic evidence of penetration and trace aspiration. -[place] Thick: Radiographic evidence of penetration and suspected aspiration ( view limited by Patient positioning). TRIAL TX: Attempted the following compensatory strategies: Double swallow, chin tuck, effortful swallow, and throat clear/re-swallow; No change in swallowing function/safety. Trials were ceased as Patient was presenting with increasingly wet vocal quality , ongoing coughing which appears wet, RR continued to appear high, and recurrent penetration and trace aspiration. At this time, MD to consider alternative method for watermaster nutrition/ hydration and medication management as Patient's swallow continues to be inefficient and Patient presents with radiographic evidence of penetration and/ or aspiration across all consistencies. (6) High serum creatine (7) High blood urea nitrogen (BUN) (8) Abnormal TSH (9) DEANDRA (acute kidney injury) (10) Hypotension (11) Electrolyte imbalance (12) Hyperkalemia (13) Deep tissue injury Assessment & Plan: Patient identified to have a sacral deep tissue injury. No areas of open skin. No signs of acute active infection. Patient critically ill intensive care unit on support slowly making a recovery. Will make all times prevention as well as initiate care plan for healing. Turn every 2 hours. Skin protectant OPTi foam dressing. Offload heels with pillows. Will monitor closely. Great nursing care being provided. Nutritional optimization DAILY ESTIMATED NEEDS: Needs based on DM, pulmonary 65.5kg 25-30 kcals/kg 1000-7968 total kcals 1-1.5 g protein/kg 66-98 g total protein 25-30 mL/kg 1242-9303 total fluid mLs NUTRITION DIAGNOSIS: Swallowing difficulty r/t Cardiopulmonary arrest as evidenced by pt now orally intubated, ICU, adm w/ DKA, now on pressor support x3- now s/p extubation, pending TESTER E[employer]MENT eval. CURRENT TF: NPO PO DIET RECOMMENDATIONS: CCHO MED DIET/ TEXTURE PER TESTER EQUIPMENT ADDITIONAL RECOMMENDATIONS: 1) Diet recs as above, TESTER EQUIPMENT eval pending 2) Maintain calibrated bed scale wts 3) Replete lytes as needed 4) Add Glucerna w/ poor po intake Enrrique Martins December 22, 2019 17:23
[2019-12-22] MEDS ORDERED: Acetaminophen 650 MG SUPP RECTAL PRN (19:00)
--- NOTE | 2019-12-22 20:30 | Progress Note ---
DATE: 12/22/2019 SUBJECTIVE: This is elderly 58-year-old female failed swallow evaluation, tolerating NG tube feeding. The patient kind of obtunded. PHYSICAL EXAMINATION: VITAL SIGNS: Blood pressure 125/75, pulse 101, respirations 18, no fever. CHEST: Bilateral decreased breath sounds. CARDIOVASCULAR: Regular rhythm. ABDOMEN: Soft. EXTREMITIES: CCE. NEUROLOGICAL: Generalized weakness. LABORATORY DATA: White counts are 8.1, hemoglobin 8.6, hematocrit 25, platelets are 334. Chemistry panel, sodium 140, potassium 4.1, BUN 7, creatinine 0.7. C-reactive protein 12. BNP was 583. ASSESSMENT AND PLAN: 1. Acute cardiopulmonary arrest. 2. Aspiration pneumonia. 3. Dysphagia. 4. Diabetes. 5. History of diabetic ketoacidosis. The patient is physically doing a little better. She is confused in the bed, failed swallow evaluation. Continue current medical treatment. Continue sliding scale and Accu-Chek. Continue NG tube feeding. Continue IV antibiotics. Frank Pinzon M.D. DR: Raoul JOB#: [id number] CC:
[2019-12-22] MEDS: Iron Sucrose 100 MG in NS 55 ML IV SCH (21:00)
[2019-12-22] MEDS: Dyna-Hex 2% Top Sol 2oz TOPIC SCH (21:53)
[2019-12-23] VITALS: BP 131/58
[2019-12-23] MEDS: Piperacillin/Tazobactam 3.375 GM in NS 110 ML IVPB SCH ×3 (03:33→18:02)
[2019-12-23 04:00] VITALS: BP 130/64
[2019-12-23] MEDS: NovoLOG Insulin Flexpen SUBQ SCH ×6 (05:39→23:45)
[2019-12-23 06:17] LABS: BASOPHILS % (AUTO) 0.9 % (0.0-2.0); EOSINOPHILS % (AUTO) 3.7 % (0.0-3.0); HEMATOCRIT 24.9 % (37.0-47.0); HEMOGLOBIN 8.4 G/DL (12.0-16.0); LYMPHOCYTES % (AUTO) 22.7 % (20.0-45.0); MEAN CORPUSCULAR VOLUME 89 FL (80-99); MONOCYTES % (AUTO) 5.5 % (1.0-10.0); NEUTROPHILS % (AUTO) 67.1 % (45.0-75.0); PLATELET COUNT 430 K/UL (150-450); RED BLOOD COUNT 2.78 M/UL (4.20-5.40); RED CELL DISTRIBUTION WIDTH 12.5 % (11.6-14.8)
[2019-12-23 08:00] VITALS: BP 115/64
[2019-12-23] MEDS: Lactobacillus-GG tablet NG SCH ×3 (09:39→17:55)
[2019-12-23] MEDS: Spironolactone 25mg tab ORAL SCH ×2 (09:39→17:55)
[2019-12-23] MEDS: Pantoprazole Inj IVP SCH ×2 (09:40→20:22)
[2019-12-23] MEDS: Levemir Flexpen SUBQ SCH ×2 (09:41→20:43)
--- NOTE | 2019-12-23 10:36 | Surgery Progress Note ---
Surgery Progress Note Subjective Additional Comments no acute events comfortable ng in place peg pending Objective Last 24 Hour Vital Signs Date Time Temp Pulse Resp B/P (MAP) Pulse Ox O2 Delivery O2 Flow Rate FiO2 12/23/19 08:00 98.2 104 18 115/64 (81) 98 12/23/19 04:00 98.5 105 20 130/64 (86) 94 12/23/19 00:00 98.6 112 20 131/58 (82) 94 12/22/19 20:00 98.2 111 20 132/78 (96) 93 12/22/19 18:50 100.0 119 22 139/75 (96) 90 12/22/19 16:00 117 12/22/19 16:00 98.1 111 20 120/66 (84) 96 12/22/19 12:00 102 12/22/19 12:00 98.0 101 18 125/75 (92) 97 I&O Intake and Output 12/22/19 12/23/19 19:00 07:00 Intake Total 702.5 ml 1110.0 ml Output Total 1000 ml 500 ml Balance -297.5 ml 610.0 ml Free Water 100 ml 200 ml IV Total 482.5 ml 250.0 ml Tube Feeding 120 ml 660 ml Output Urine Total 1000 ml 500 ml # Voids 1 # Bowel Movements 1 Dressing: other Wound: other Drains: other Cardiovascular: RSR Respiratory: decreased breath sounds Abdomen: soft, non-tender, present bowel sounds Extremities: no edema, no tenderness, no cyanosis Laboratory Tests Test 12/23/19 05:47 White Blood Count 9.0 K/UL (4.8-10.8) Red Blood Count 2.78 M/UL (4.20-5.40) L Hemoglobin 8.4 G/DL (12.0-16.0) L Hematocrit 24.9 % (37.0-47.0) L Mean Corpuscular Volume 89 FL (80-99) Mean Corpuscular Hemoglobin 30.3 PG (27.0-31.0) Mean Corpuscular Hemoglobin Concent 33.9 G/DL (32.0-36.0) Red Cell Distribution Width 12.5 % (11.6-14.8) Platelet Count 430 K/UL (150-450) Mean Platelet Volume 6.0 FL (6.5-10.1) L Neutrophils (%) (Auto) 67.1 % (45.0-75.0) Lymphocytes (%) (Auto) 22.7 % (20.0-45.0) Monocytes (%) (Auto) 5.5 % (1.0-10.0) Eosinophils (%) (Auto) 3.7 % (0.0-3.0) H Basophils (%) (Auto) 0.9 % (0.0-2.0) Plan Problems: (1) Cardiac arrest (2) DKA (diabetic ketoacidoses) (3) Respiratory distress (4) Altered mental status (5) Coffee ground emesis Assessment & Plan: Coffee-ground emesis concerning for GI bleed. Transfuse PRBC now stable. No acute active bleeding noted. Discussed with GI. Will follow with recommendations hold on acute surgical intervention MBSS with 2L nasal cannula. RR appears slightly elevated. Patient given PO trials barium liquids in various consistencies. INITIAL RESULTS: Patient presenting with moderate to moderately severe oropharyngeal dysphagia. Initial review of images reveals the following: -Thin Liquids: Radiographic evidence of penetration and trace aspiration. -Tyro Thick: Radiographic evidence of penetration and trace aspiration. -Honey Thick: Radiographic evidence of penetration and suspected aspiration ( view limited by Patient positioning). TRIAL TX: Attempted the following compensatory strategies: Double swallow, chin tuck, effortful swallow, and throat clear/re-swallow; No change in swallowing function/safety. Trials were ceased as Patient was presenting with increasingly wet vocal quality , ongoing coughing which appears wet, RR continued to appear high, and recurrent penetration and trace aspiration. At this time, MD to consider alternative method for snf nutrition/ hydration and medication management as Patient's swallow continues to be inefficient and Patient presents with radiographic evidence of penetration and/ or aspiration across all consistencies. (6) High serum creatine (7) High blood urea nitrogen (BUN) (8) Abnormal TSH (9) DEANDRA (acute kidney injury) (10) Hypotension (11) Electrolyte imbalance (12) Hyperkalemia (13) Deep tissue injury Assessment & Plan: Patient identified to have a sacral deep tissue injury. No areas of open skin. No signs of acute active infection. Patient critically ill intensive care unit on support slowly making a recovery. Will make all times prevention as well as initiate care plan for healing. Turn every 2 hours. Skin protectant OPTi foam dressing. Offload heels with pillows. Will monitor closely. Great nursing care being provided. Nutritional optimization DAILY ESTIMATED NEEDS: Needs based on DM, pulmonary 65.5kg 25-30 kcals/kg 0286-8357 total kcals 1-1.5 g protein/kg 66-98 g total protein 25-30 mL/kg 5576-6196 total fluid mLs NUTRITION DIAGNOSIS: Swallowing difficulty r/t Cardiopulmonary arrest as evidenced by pt now orally intubated, ICU, adm w/ DKA, now on pressor support x3- now s/p extubation, pending PIPE SMOKER MACHINE OPERATOR eval. CURRENT TF: NPO PO DIET RECOMMENDATIONS: [facility]/ TEXTURE PER PIPE SMOKER MACHINE OPERATOR ADDITIONAL RECOMMENDATIONS: 1) Diet recs as above, PIPE SMOKER MACHINE OPERATOR eval pending 2) Maintain calibrated bed scale wts 3) Replete lytes as needed 4) Add Glucerna w/ poor po intake Enrrique Martins December 23, 2019 10:36
--- NOTE | 2019-12-23 10:37 | General Progress Note ---
Assessment/Plan Problem List: (1) Coffee ground emesis ICD Codes: K92.0 - Hematemesis SNOMED: 04183896 (2) High blood urea nitrogen (BUN) ICD Codes: R79.9 - Abnormal finding of blood chemistry, unspecified SNOMED: 341841547, 482481201 (3) High serum creatine ICD Codes: R79.89 - Other specified abnormal findings of blood chemistry SNOMED: 281420662, 197994648 (4) DKA (diabetic ketoacidoses) ICD Codes: E11.10 - Type 2 diabetes mellitus with ketoacidosis without coma SNOMED: 335338671, 31434769 Qualifiers: Qualified Codes: E13.11 - Other specified diabetes mellitus with ketoacidosis with coma (5) Altered mental status ICD Codes: R41.82 - Altered mental status, unspecified SNOMED: 021449783, 38729766 Qualifiers: Qualified Codes: R41.82 - Altered mental status, unspecified (6) Cardiac arrest ICD Codes: I46.9 - Cardiac arrest, cause unspecified SNOMED: 592592399 (7) Respiratory distress ICD Codes: R06.03 - Acute respiratory distress SNOMED: 837039802 Assessment/Plan: s/p 2 units prbc in this admission positive stool ob x1 ppi iv BID monitor H&H transfuse to keep HGB above 7.5 NGTF D/W the nurse speech eval appreciated>>> failed PEG plans for tomorrow + diarrhea>>> C.diff neg>>> on prn imodium will fu Subjective ROS Limited/Unobtainable: No Allergies: Coded Allergies: No Known Allergies (Unverified , 12/11/19) Objective Last 24 Hour Vital Signs Date Time Temp Pulse Resp B/P (MAP) Pulse Ox O2 Delivery O2 Flow Rate FiO2 12/23/19 08:00 98.2 104 18 115/64 (81) 98 12/23/19 04:00 98.5 105 20 130/64 (86) 94 12/23/19 00:00 98.6 112 20 131/58 (82) 94 12/22/19 20:00 98.2 111 20 132/78 (96) 93 12/22/19 18:50 100.0 119 22 139/75 (96) 90 12/22/19 16:00 117 12/22/19 16:00 98.1 111 20 120/66 (84) 96 12/22/19 12:00 102 12/22/19 12:00 98.0 101 18 125/75 (92) 97 Intake and Output 12/22/19 12/23/19 19:00 07:00 Intake Total 702.5 ml 1110.0 ml Output Total 1000 ml 500 ml Balance -297.5 ml 610.0 ml Free Water 100 ml 200 ml IV Total 482.5 ml 250.0 ml Tube Feeding 120 ml 660 ml Output Urine Total 1000 ml 500 ml # Voids 1 # Bowel Movements 1 Laboratory Tests 12/23/19 05:47: White Blood Count 9.0, Red Blood Count 2.78L, Hemoglobin 8.4L, Hematocrit 24.9L , Mean Corpuscular Volume 89, Mean Corpuscular Hemoglobin 30.3, Mean Corpuscular Hemoglobin Concent 33.9, Red Cell Distribution Width 12.5, Platelet Count 430, Mean Platelet Volume 6.0L, Neutrophils (%) (Auto) 67.1, Lymphocytes ( %) (Auto) 22.7, Monocytes (%) (Auto) 5.5, Eosinophils (%) (Auto) 3.7H, Basophils (%) (Auto) 0.9 Height (Feet): 5 Height (Inches): 5.00 Weight (Pounds): 162 General Appearance: lethargic EENT: normal ENT inspection Neck: supple Cardiovascular: normal rate Respiratory/Chest: decreased breath sounds Abdomen: normal bowel sounds, non tender, soft Extremities: non-tender Maykel Stephen MD December 23, 2019 10:37
--- NOTE | 2019-12-23 10:38 | Nephrology Progress Note ---
Assessment/Plan Problem List: (1) DEANDRA (acute kidney injury) Assessment: Resolved (2) Hypotension (3) Cardiac arrest (4) DKA (diabetic ketoacidoses) (5) Respiratory distress (6) Coffee ground emesis (7) Electrolyte imbalance Assessment Acute renal failure which probably is superimposed on chronic kidney disease History of diabetes mellitus, most likely diabetic nephropathy. Presents with diabetic ketoacidosis Acute respiratory failure requiring intubation and mechanical ventilation Aspiration pneumonia, upper GI bleed Proteinuria and severe hypoalbuminemia should rule out nephrotic range proteinuria Anemia Electrolyte imbalances Plan Electrolytes seems to be reasonably corrected Off Reglan as the patient has diarrhea C. difficile negative Patient is doing well post extubation Will replace potassium, magnesium, and phosphorus as needed Previously 2 units of packed RBCs was transfused Hydrate as needed and monitor electrolytes Per orders Previously Monitor renal parameters Avoid nephrotoxic's Anemia work-up Urine studies Keep blood sugar and blood pressure in check Per consultants Discussed with RN Subjective ROS Limited/Unobtainable: No Constitutional: Reports: malaise, weakness Objective Objective Last 24 Hour Vital Signs Date Time Temp Pulse Resp B/P (MAP) Pulse Ox O2 Delivery O2 Flow Rate FiO2 12/23/19 08:00 98.2 104 18 115/64 (81) 98 12/23/19 04:00 98.5 105 20 130/64 (86) 94 12/23/19 00:00 98.6 112 20 131/58 (82) 94 12/22/19 20:00 98.2 111 20 132/78 (96) 93 12/22/19 18:50 100.0 119 22 139/75 (96) 90 12/22/19 16:00 117 12/22/19 16:00 98.1 111 20 120/66 (84) 96 12/22/19 12:00 102 12/22/19 12:00 98.0 101 18 125/75 (92) 97 Intake and Output 12/22/19 12/23/19 19:00 07:00 Intake Total 702.5 ml 1110.0 ml Output Total 1000 ml 500 ml Balance -297.5 ml 610.0 ml Free Water 100 ml 200 ml IV Total 482.5 ml 250.0 ml Tube Feeding 120 ml 660 ml Output Urine Total 1000 ml 500 ml # Voids 1 # Bowel Movements 1 Laboratory Tests 12/23/19 05:47: White Blood Count 9.0, Red Blood Count 2.78L, Hemoglobin 8.4L, Hematocrit 24.9L , Mean Corpuscular Volume 89, Mean Corpuscular Hemoglobin 30.3, Mean Corpuscular Hemoglobin Concent 33.9, Red Cell Distribution Width 12.5, Platelet Count 430, Mean Platelet Volume 6.0L, Neutrophils (%) (Auto) 67.1, Lymphocytes ( %) (Auto) 22.7, Monocytes (%) (Auto) 5.5, Eosinophils (%) (Auto) 3.7H, Basophils (%) (Auto) 0.9 Height (Feet): 5 Height (Inches): 5.00 Weight (Pounds): 162 General Appearance: no apparent distress, lethargic EENT: other - NG tube present Cardiovascular: tachycardia Respiratory/Chest: decreased breath sounds Abdomen: distended Don Ventura MD December 23, 2019 10:38
[2019-12-23] MEDS ORDERED: Varibar Pudding 230ml MC PRN (11:45)
[2019-12-23] MEDS ORDERED: Varibar Honey 250ml MC PRN (11:45)
[2019-12-23] MEDS ORDERED: Varibar Nectar 240ml MC PRN (11:45)
[2019-12-23 12:00] VITALS: BP 137/76
--- NOTE | 2019-12-23 12:07 | Infectious Diseases Prog Note ---
Assessment/Plan Assessment/Plan A: 1. Diabetic ketoacidosis 2. Renal failure resolved 3. Leukocytosis resolved. 4. Pneumonia. COVID19 X 1: negative 5. Anemia 6. Hypokalemia corrected PLAN: 1. Continue Zosyn X 1 day 2. Negative C. Difficile test Subjective ROS Limited/Unobtainable: Yes Allergies: Coded Allergies: No Known Allergies (Unverified , 12/11/19) Objective Vital Signs Last 24 Hour Vital Signs Date Time Temp Pulse Resp B/P (MAP) Pulse Ox O2 Delivery O2 Flow Rate FiO2 12/23/19 08:00 98.2 104 18 115/64 (81) 98 12/23/19 04:00 98.5 105 20 130/64 (86) 94 12/23/19 00:00 98.6 112 20 131/58 (82) 94 12/22/19 20:00 98.2 111 20 132/78 (96) 93 12/22/19 18:50 100.0 119 22 139/75 (96) 90 12/22/19 16:00 117 12/22/19 16:00 98.1 111 20 120/66 (84) 96 Height (Feet): 5 Height (Inches): 5.00 Weight (Pounds): 162 HEENT: mucous membranes moist Respiratory/Chest: lungs clear Cardiovascular: tachycardia, other Abdomen: soft, non tender, other (NG tube feeding) Extremities: no edema Neurologic/Psychiatric: unresponsiveness Microbiology Date/Time Source Procedure Growth Status 12/21/19 11:05 Blood Blood Culture - Preliminary NO GROWTH AFTER 24 HOURS Resulted Laboratory Tests Test 12/23/19 05:47 White Blood Count 9.0 K/UL (4.8-10.8) Red Blood Count 2.78 M/UL (4.20-5.40) L Hemoglobin 8.4 G/DL (12.0-16.0) L Hematocrit 24.9 % (37.0-47.0) L Mean Corpuscular Volume 89 FL (80-99) Mean Corpuscular Hemoglobin 30.3 PG (27.0-31.0) Mean Corpuscular Hemoglobin Concent 33.9 G/DL (32.0-36.0) Red Cell Distribution Width 12.5 % (11.6-14.8) Platelet Count 430 K/UL (150-450) Mean Platelet Volume 6.0 FL (6.5-10.1) L Neutrophils (%) (Auto) 67.1 % (45.0-75.0) Lymphocytes (%) (Auto) 22.7 % (20.0-45.0) Monocytes (%) (Auto) 5.5 % (1.0-10.0) Eosinophils (%) (Auto) 3.7 % (0.0-3.0) H Basophils (%) (Auto) 0.9 % (0.0-2.0) Current Medications Medications (Trade) Dose Ordered Sig/Esequiel Route PRN Reason Start Time Stop Time Status Last Admin Dose Admin Acetaminophen (Tylenol) 650 mg Q4H PRN GT Mild Pain (Pain Scale 1-3) 12/22/19 19:00 01/10/20 18:59 Acetaminophen (Tylenol) 650 mg Q4H PRN RECTAL Mild Pain (Pain Scale 1-3) 12/22/19 19:00 01/10/20 18:59 Barium Sulfate (Varibar Honey) 250 ml NOW PRN MC RAD 12/23/19 11:45 12/25/19 11:37 Barium Sulfate (Varibar [place]) 240 ml NOW PRN MC RAD 12/23/19 11:45 12/25/19 11:37 Barium Sulfate (Varibar Pudding) 230 ml NOW PRN MC RAD 12/23/19 11:45 12/25/19 11:37 Chlorhexidine Gluconate (Bijal-Hex 2%) 1 applic DAILY@2000 TOPIC 12/22/19 20:00 03/11/20 19:59 12/22/19 21:53 Dextrose (Dextrose 50%) 25 ml Q30M PRN IV Hypoglycemia 12/22/19 19:00 03/12/20 01:59 Dextrose (Dextrose 50%) 50 ml Q30M PRN IV Hypoglycemia 12/22/19 19:00 03/12/20 01:59 Dextrose/ Electrolytes 1,000 ml @ 40 mls/hr Q24H IV 12/22/19 19:00 01/21/20 16:07 12/22/19 19:14 Insulin Aspart (NovoLOG) Q6HR SUBQ 12/23/19 00:00 03/12/20 04:59 12/23/19 11:32 Insulin Detemir (Levemir) 15 units Q12HR SUBQ 12/22/19 21:00 03/20/20 08:59 12/23/19 09:41 Iron Sucrose 100 mg/Sodium Chloride 60 ml @ 240 mls/hr BEDTIME IV 12/22/19 21:00 12/24/19 21:14 12/22/19 21:00 Lactobacillus Acidophilus (Culturelle) 1 tab THREE TIMES A DAY NG 12/23/19 09:00 03/18/20 12:59 12/23/19 09:39 Loperamide HCl (Imodium) 2 mg Q4H PRN ORAL Diarrhea 12/22/19 19:00 01/21/20 18:59 Ondansetron HCl (Zofran) 4 mg Q6H PRN IVP Nausea & Vomiting 12/22/19 19:00 01/10/20 18:59 Pantoprazole (Protonix) 40 mg EVERY 12 HOURS IVP 12/22/19 21:00 01/11/20 08:59 12/23/19 09:40 Piperacillin Sod/ Tazobactam Sod 3.375 gm/Sodium Chloride 110 ml @ 27.5 mls/hr Q8H IVPB 12/22/19 19:00 12/28/19 10:59 12/23/19 11:33 Potassium Chloride (K-Dur) 40 meq BID ORAL 12/23/19 09:00 03/17/20 08:59 12/23/19 09:39 Spironolactone (Aldactone) 25 mg BID ORAL 12/23/19 09:00 01/17/20 10:59 12/23/19 09:39 Brandin Ochoa MD December 23, 2019 12:07
--- NOTE | 2019-12-23 12:18 | Pulmonology Progress Note ---
Subjective ROS Limited/Unobtainable: Yes Interval Events: Extubated 12/13/19; NGT in place Constitutional: Denies: fever, chills HEENT: Repors: no symptoms Respiratory: Reports: no symptoms Cardiovascular: Reports: no symptoms Gastrointestinal/Abdominal: Denies: nausea, vomiting, diarrhea Genitourinary: Reports: no symptoms Musculoskeletal: Denies: pain Allergies: Coded Allergies: No Known Allergies (Unverified , 12/11/19) All Systems: reviewed and negative except above Objective Last 24 Hour Vital Signs Date Time Temp Pulse Resp B/P (MAP) Pulse Ox O2 Delivery O2 Flow Rate FiO2 12/23/19 08:00 98.2 104 18 115/64 (81) 98 12/23/19 04:00 98.5 105 20 130/64 (86) 94 12/23/19 00:00 98.6 112 20 131/58 (82) 94 12/22/19 20:00 98.2 111 20 132/78 (96) 93 12/22/19 18:50 100.0 119 22 139/75 (96) 90 12/22/19 16:00 117 12/22/19 16:00 98.1 111 20 120/66 (84) 96 Intake and Output 12/22/19 12/23/19 19:00 07:00 Intake Total 702.5 ml 1110.0 ml Output Total 1000 ml 500 ml Balance -297.5 ml 610.0 ml Free Water 100 ml 200 ml IV Total 482.5 ml 250.0 ml Tube Feeding 120 ml 660 ml Output Urine Total 1000 ml 500 ml # Voids 1 # Bowel Movements 1 General Appearance: no acute distress HEENT: normocephalic Respiratory: chest wall non-tender, lungs clear Cardiovascular: normal peripheral pulses, normal rate Abdomen: normal bowel sounds Microbiology Date/Time Source Procedure Growth Status 12/21/19 11:05 Blood Blood Culture - Preliminary NO GROWTH AFTER 24 HOURS Resulted Laboratory Tests 12/23/19 05:47: White Blood Count 9.0, Red Blood Count 2.78L, Hemoglobin 8.4L, Hematocrit 24.9L , Mean Corpuscular Volume 89, Mean Corpuscular Hemoglobin 30.3, Mean Corpuscular Hemoglobin Concent 33.9, Red Cell Distribution Width 12.5, Platelet Count 430, Mean Platelet Volume 6.0L, Neutrophils (%) (Auto) 67.1, Lymphocytes ( %) (Auto) 22.7, Monocytes (%) (Auto) 5.5, Eosinophils (%) (Auto) 3.7H, Basophils (%) (Auto) 0.9 Current Medications Medications (Trade) Dose Ordered Sig/Esequiel Route PRN Reason Start Time Stop Time Status Last Admin Dose Admin Acetaminophen (Tylenol) 650 mg Q4H PRN GT Mild Pain (Pain Scale 1-3) 12/22/19 19:00 01/10/20 18:59 Acetaminophen (Tylenol) 650 mg Q4H PRN RECTAL Mild Pain (Pain Scale 1-3) 12/22/19 19:00 01/10/20 18:59 Barium Sulfate (Varibar Honey) 250 ml NOW PRN MC RAD 12/23/19 11:45 12/25/19 11:37 Barium Sulfate (Varibar [place]) 240 ml NOW PRN MC RAD 12/23/19 11:45 12/25/19 11:37 Barium Sulfate (Varibar Pudding) 230 ml NOW PRN MC RAD 12/23/19 11:45 12/25/19 11:37 Chlorhexidine Gluconate (Bijal-Hex 2%) 1 applic DAILY@2000 TOPIC 12/22/19 20:00 03/11/20 19:59 12/22/19 21:53 Dextrose (Dextrose 50%) 25 ml Q30M PRN IV Hypoglycemia 12/22/19 19:00 03/12/20 01:59 Dextrose (Dextrose 50%) 50 ml Q30M PRN IV Hypoglycemia 12/22/19 19:00 03/12/20 01:59 Dextrose/ Electrolytes 1,000 ml @ 40 mls/hr Q24H IV 12/22/19 19:00 01/21/20 16:07 12/22/19 19:14 Insulin Aspart (NovoLOG) Q6HR SUBQ 12/23/19 00:00 03/12/20 04:59 12/23/19 11:32 Insulin Detemir (Levemir) 15 units Q12HR SUBQ 12/22/19 21:00 03/20/20 08:59 12/23/19 09:41 Iron Sucrose 100 mg/Sodium Chloride 60 ml @ 240 mls/hr BEDTIME IV 12/22/19 21:00 12/24/19 21:14 12/22/19 21:00 Lactobacillus Acidophilus (Culturelle) 1 tab THREE TIMES A DAY NG 12/23/19 09:00 03/18/20 12:59 12/23/19 09:39 Loperamide HCl (Imodium) 2 mg Q4H PRN ORAL Diarrhea 12/22/19 19:00 01/21/20 18:59 Ondansetron HCl (Zofran) 4 mg Q6H PRN IVP Nausea & Vomiting 12/22/19 19:00 01/10/20 18:59 Pantoprazole (Protonix) 40 mg EVERY 12 HOURS IVP 12/22/19 21:00 01/11/20 08:59 12/23/19 09:40 Piperacillin Sod/ Tazobactam Sod 3.375 gm/Sodium Chloride 110 ml @ 27.5 mls/hr Q8H IVPB 12/22/19 19:00 12/28/19 10:59 12/23/19 11:33 Potassium Chloride (K-Dur) 40 meq BID ORAL 12/23/19 09:00 03/17/20 08:59 12/23/19 09:39 Spironolactone (Aldactone) 25 mg BID ORAL 12/23/19 09:00 01/17/20 10:59 12/23/19 09:39 Assessment/Plan Assessment/Plan IMPRESSION: 1. DKA. Resolved 2. Upper GI bleed. 3. Respiratory failure. Now extubated 4. Lactic acidosis. DISCUSSION: Continue antibiotics. GI following for upper gastrointestinal bleeding, Not on pressors. I will continue oxygen, Protonix, DVT prophylaxis. Saturating 100% on 4L/min O2 Needs PEG Discussed with GI Osorio Harris Omar Syed MD December 23, 2019 12:18
--- NOTE | 2019-12-23 15:49 | Cardiac Electrophysiology PN ---
Assessment/Plan Assessment/Plan 1. S/P Septic shock. Off pressors. EF 60%. EKG shows sinus tachycardia with no acute ST-T wave abnormalities. 2. S/P Respiratory failure, Extubated 3. Hypotension. Resolved 4. Coffee-ground emesis. S/P 2 units of PRBC 5. S/P Diabetic ketoacidosis 6. Persistent hypokalemia. Improved on aldactone 25 bid and KCL po by Dr Ventura 7. Failed swallow eval. NG tube. PEG in am by Dr. Zafar HINOJOSA RN and Dr Ventura Subjective Subjective 1st covid negative on 12/13. Second Covid pending DC to [facility] Objective Last 24 Hour Vital Signs Date Time Temp Pulse Resp B/P (MAP) Pulse Ox O2 Delivery O2 Flow Rate FiO2 12/23/19 12:00 96.7 83 19 137/76 (96) 97 12/23/19 09:00 Nasal Cannula 2.0 12/23/19 08:00 98.2 104 18 115/64 (81) 98 12/23/19 04:00 98.5 105 20 130/64 (86) 94 12/23/19 00:00 98.6 112 20 131/58 (82) 94 12/22/19 20:00 98.2 111 20 132/78 (96) 93 12/22/19 18:50 100.0 119 22 139/75 (96) 90 12/22/19 16:00 117 12/22/19 16:00 98.1 111 20 120/66 (84) 96 Intake and Output 12/22/19 12/23/19 19:00 07:00 Intake Total 702.5 ml 1170.0 ml Output Total 1000 ml 500 ml Balance -297.5 ml 670.0 ml Free Water 100 ml 200 ml IV Total 482.5 ml 250.0 ml Tube Feeding 120 ml 720 ml Output Urine Total 1000 ml 500 ml # Voids 1 # Bowel Movements 1 Laboratory Tests Test 12/23/19 05:47 White Blood Count 9.0 K/UL (4.8-10.8) Red Blood Count 2.78 M/UL (4.20-5.40) L Hemoglobin 8.4 G/DL (12.0-16.0) L Hematocrit 24.9 % (37.0-47.0) L Mean Corpuscular Volume 89 FL (80-99) Mean Corpuscular Hemoglobin 30.3 PG (27.0-31.0) Mean Corpuscular Hemoglobin Concent 33.9 G/DL (32.0-36.0) Red Cell Distribution Width 12.5 % (11.6-14.8) Platelet Count 430 K/UL (150-450) Mean Platelet Volume 6.0 FL (6.5-10.1) L Neutrophils (%) (Auto) 67.1 % (45.0-75.0) Lymphocytes (%) (Auto) 22.7 % (20.0-45.0) Monocytes (%) (Auto) 5.5 % (1.0-10.0) Eosinophils (%) (Auto) 3.7 % (0.0-3.0) H Basophils (%) (Auto) 0.9 % (0.0-2.0) Microbiology Date/Time Source Procedure Growth Status 12/21/19 11:05 Blood Blood Culture - Preliminary NO GROWTH AFTER 24 HOURS Resulted Objective HEAD AND NECK: No JVD. NGT feeding LUNGS: Coarse rhonchi. CARDIOVASCULAR: Irregular S1-S2 and tachycardic. ABDOMEN: Soft. EXTREMITIES: No pitting edema. Gerardo Dyer MD December 23, 2019 15:49
[2019-12-23 16:00] VITALS: BP 106/64
--- NOTE | 2019-12-23 17:58 | General Progress Note ---
Assessment/Plan Problem List: (1) DKA (diabetic ketoacidoses) ICD Codes: E11.10 - Type 2 diabetes mellitus with ketoacidosis without coma SNOMED: 211008621, 81944808 Qualifiers: Qualified Codes: E13.11 - Other specified diabetes mellitus with ketoacidosis with coma (2) Cardiac arrest ICD Codes: I46.9 - Cardiac arrest, cause unspecified SNOMED: 589737558 (3) Coffee ground emesis ICD Codes: K92.0 - Hematemesis SNOMED: 54635426 (4) Abnormal TSH ICD Codes: R79.89 - Other specified abnormal findings of blood chemistry SNOMED: 834470826 Assessment/Plan: increase Levemir to 20 units bid continue Novolog sliding scale every 6 hours TSH, free T4 in am Subjective ROS Limited/Unobtainable: Yes Allergies: Coded Allergies: No Known Allergies (Unverified , 12/11/19) Subjective events noted - interval notes reviewed glucose values are elevated on TF and dextrose IV Item Value Date Time Bedside Blood Glucose 222 mg/dl H 12/23/19 1753 Bedside Blood Glucose 279 mg/dl H 12/23/19 1132 Bedside Blood Glucose 250 mg/dl H 12/23/19 0941 Bedside Blood Glucose 250 mg/dl H 12/23/19 0539 Bedside Blood Glucose 234 mg/dl H 12/23/19 0000 Bedside Blood Glucose 260 mg/dl H 12/22/19 2210 Bedside Blood Glucose 214 mg/dl H 12/22/19 1811 Objective Last 24 Hour Vital Signs Date Time Temp Pulse Resp B/P (MAP) Pulse Ox O2 Delivery O2 Flow Rate FiO2 12/23/19 16:00 99.1 87 20 106/64 (78) 98 12/23/19 12:00 96.7 83 19 137/76 (96) 97 12/23/19 09:00 Nasal Cannula 2.0 12/23/19 08:00 98.2 104 18 115/64 (81) 98 12/23/19 04:00 98.5 105 20 130/64 (86) 94 12/23/19 00:00 98.6 112 20 131/58 (82) 94 12/22/19 20:00 98.2 111 20 132/78 (96) 93 12/22/19 18:50 100.0 119 22 139/75 (96) 90 Intake and Output 12/22/19 12/23/19 19:00 07:00 Intake Total 702.5 ml 1320.0 ml Output Total 1000 ml 500 ml Balance -297.5 ml 820.0 ml Free Water 100 ml 200 ml IV Total 482.5 ml 400.0 ml Tube Feeding 120 ml 720 ml Output Urine Total 1000 ml 500 ml # Voids 1 # Bowel Movements 1 Laboratory Tests 12/23/19 05:47: White Blood Count 9.0, Red Blood Count 2.78L, Hemoglobin 8.4L, Hematocrit 24.9L , Mean Corpuscular Volume 89, Mean Corpuscular Hemoglobin 30.3, Mean Corpuscular Hemoglobin Concent 33.9, Red Cell Distribution Width 12.5, Platelet Count 430, Mean Platelet Volume 6.0L, Neutrophils (%) (Auto) 67.1, Lymphocytes ( %) (Auto) 22.7, Monocytes (%) (Auto) 5.5, Eosinophils (%) (Auto) 3.7H, Basophils (%) (Auto) 0.9 Height (Feet): 5 Height (Inches): 5.00 Weight (Pounds): 162 General Appearance: no apparent distress Neck: normal alignment Cardiovascular: normal rate Respiratory/Chest: decreased breath sounds Abdomen: normal bowel sounds Pelvis: normal external exam Objective Current Medications Medications (Trade) Dose Ordered Sig/Esequiel Route PRN Reason Start Time Stop Time Status Last Admin Dose Admin Acetaminophen (Tylenol) 650 mg Q4H PRN GT Mild Pain (Pain Scale 1-3) 12/22/19 19:00 01/10/20 18:59 Acetaminophen (Tylenol) 650 mg Q4H PRN RECTAL Mild Pain (Pain Scale 1-3) 12/22/19 19:00 01/10/20 18:59 Barium Sulfate (Varibar Honey) 250 ml NOW PRN MC RAD 12/23/19 11:45 12/25/19 11:37 Barium Sulfate (Varibar [place]) 240 ml NOW PRN MC RAD 12/23/19 11:45 12/25/19 11:37 Barium Sulfate (Varibar Pudding) 230 ml NOW PRN MC RAD 12/23/19 11:45 12/25/19 11:37 Chlorhexidine Gluconate (Bijal-Hex 2%) 1 applic DAILY@1999 TOPIC 12/22/19 20:00 03/11/20 19:59 12/22/19 21:53 Dextrose (Dextrose 50%) 25 ml Q30M PRN IV Hypoglycemia 12/22/19 19:00 03/12/20 01:59 Dextrose (Dextrose 50%) 50 ml Q30M PRN IV Hypoglycemia 12/22/19 19:00 03/12/20 01:59 Dextrose/ Electrolytes 1,000 ml @ 40 mls/hr Q24H IV 12/22/19 19:00 01/21/20 16:07 12/22/19 19:14 Insulin Aspart (NovoLOG) Q6HR SUBQ 12/23/19 00:00 03/12/20 04:59 12/23/19 11:32 Insulin Detemir (Levemir) 15 units Q12HR SUBQ 12/22/19 21:00 03/20/20 08:59 12/23/19 09:41 Iron Sucrose 100 mg/Sodium Chloride 60 ml @ 240 mls/hr BEDTIME IV 12/22/19 21:00 12/24/19 21:14 12/22/19 21:00 Lactobacillus Acidophilus (Culturelle) 1 tab THREE TIMES A DAY NG 12/23/19 09:00 03/18/20 12:59 12/23/19 13:02 Loperamide HCl (Imodium) 2 mg Q4H PRN ORAL Diarrhea 12/22/19 19:00 01/21/20 18:59 Ondansetron HCl (Zofran) 4 mg Q6H PRN IVP Nausea & Vomiting 12/22/19 19:00 01/10/20 18:59 Pantoprazole (Protonix) 40 mg EVERY 12 HOURS IVP 12/22/19 21:00 01/11/20 08:59 12/23/19 09:40 Piperacillin Sod/ Tazobactam Sod 3.375 gm/Sodium Chloride 110 ml @ 27.5 mls/hr Q8H IVPB 12/22/19 19:00 12/28/19 10:59 12/23/19 11:33 Potassium Chloride (K-Dur) 40 meq BID ORAL 12/23/19 09:00 03/17/20 08:59 12/23/19 09:39 Spironolactone (Aldactone) 25 mg BID ORAL 12/23/19 09:00 01/17/20 10:59 12/23/19 09:39 Stef Ortega MD December 23, 2019 17:58
[2019-12-23] MEDS: D5 1/2NS w/KCl 40meq 1000ml 1,000 ML IV SCH (18:01)
[2019-12-23 20:00] VITALS: BP 127/72
[2019-12-23] MEDS: Dyna-Hex 2% Top Sol 2oz TOPIC SCH (20:22)
[2019-12-23] MEDS: Iron Sucrose 100 MG in NS 55 ML IV SCH (20:26)
--- NOTE | 2019-12-23 22:15 | Progress Note ---
DATE: 12/23/2019 SUBJECTIVE: This is a 58-year-old female, currently comfortable in the bed. PHYSICAL EXAMINATION: VITAL SIGNS: Blood pressure 106/64, T-max 99.1. CHEST: Bilateral few crackles. CARDIOVASCULAR: Regular rhythm. ABDOMEN: Soft. EXTREMITIES: CCE. LABORATORY AND DIAGNOSTIC DATA: White counts are 9000, hemoglobin 8.4, hematocrit 25, platelets are 430. Chemistry panel, the patient has no chemistries today. ASSESSMENT AND PLAN: 1. Acute cardiopulmonary arrest. 2. DKA. 3. . 4. Acute respiratory failure. 5. Dysphagia. PLAN: 1. Continue sliding scale and Accu-Chek. 2. Continue current treatment. Frank Pinzon M.D. DR: Raoul JOB#: [id number] CC:
[2019-12-24] VITALS: BP 116/66
[2019-12-24] MEDS: Piperacillin/Tazobactam 3.375 GM in NS 110 ML IVPB SCH (03:24)
[2019-12-24 04:00] VITALS: BP 116/70
[2019-12-24] MEDS: NovoLOG Insulin Flexpen SUBQ SCH ×4 (05:21→23:24)
[2019-12-24 06:18] LABS: BASOPHILS % (AUTO) 1.4 % (0.0-2.0); EOSINOPHILS % (AUTO) 3.8 % (0.0-3.0); HEMATOCRIT 23.7 % (37.0-47.0); MEAN CORPUSCULAR VOLUME 89 FL (80-99); NEUTROPHILS % (AUTO) 62.8 % (45.0-75.0); PLATELET COUNT 473 K/UL (150-450); RED BLOOD COUNT 2.66 M/UL (4.20-5.40); RED CELL DISTRIBUTION WIDTH 12.6 % (11.6-14.8); WHITE BLOOD COUNT 9.1 K/UL (4.8-10.8)
[2019-12-24 06:56] LABS: ALBUMIN 1.4 G/DL (3.4-5.0); ALBUMIN/GLOBULIN RATIO 0.3 (1.0-2.7); ALKALINE PHOSPHATASE 63 U/L (46-116); ANION GAP 4 mmol/L (5-15); ASPARTATE AMINO TRANSFERASE 30 U/L (15-37); BILIRUBIN,TOTAL 0.2 MG/DL (0.2-1.0); BLOOD UREA NITROGEN 8 mg/dL (7-18); CALCIUM 8.4 MG/DL (8.5-10.1); CARBON DIOXIDE 32 MMOL/L (21-32); CHLORIDE 103 MMOL/L (98-107); CREATININE 0.7 MG/DL (0.55-1.30); PHOSPHORUS 3.9 MG/DL (2.5-4.9); POTASSIUM 3.9 MMOL/L (3.5-5.1); SODIUM 139 MMOL/L (136-145)
--- NOTE | 2019-12-24 06:59 | General Progress Note ---
Assessment/Plan Problem List: (1) DKA (diabetic ketoacidoses) (2) Cardiac arrest (3) Coffee ground emesis (4) Abnormal TSH Assessment/Plan: continue Levemir 20 units bid continue Novolog sliding scale every 6 hours TSH normalized Subjective Allergies: Coded Allergies: No Known Allergies (Unverified , 12/11/19) All Systems: reviewed and negative except above Subjective events noted - interval notes reviewed glucose values improved Item Value Date Time Bedside Blood Glucose 138 mg/dl H 12/24/19 0521 Bedside Blood Glucose 155 mg/dl H 12/23/19 2345 Bedside Blood Glucose 169 mg/dl H 12/23/19 2045 Bedside Blood Glucose 222 mg/dl H 12/23/19 1757 Bedside Blood Glucose 279 mg/dl H 12/23/19 1132 Bedside Blood Glucose 250 mg/dl H 12/23/19 0941 Bedside Blood Glucose 250 mg/dl H 12/23/19 0539 Objective Last 24 Hour Vital Signs Date Time Temp Pulse Resp B/P (MAP) Pulse Ox O2 Delivery O2 Flow Rate FiO2 12/24/19 04:00 98.2 112 30 116/70 (85) 99 12/24/19 00:00 99.7 111 36 116/66 (83) 90 12/23/19 21:00 Nasal Cannula 2.0 12/23/19 20:19 97 Nasal Cannula 2.0 28 12/23/19 20:00 99.5 109 26 127/72 (90) 90 12/23/19 16:00 99.1 87 20 106/64 (78) 98 12/23/19 12:00 96.7 83 19 137/76 (96) 97 12/23/19 09:00 Nasal Cannula 2.0 12/23/19 08:00 98.2 104 18 115/64 (81) 98 Intake and Output 12/23/19 12/24/19 19:00 07:00 Intake Total 1010.0 ml Balance 1010.0 ml Free Water 100 ml IV Total 370.0 ml Tube Feeding 540 ml # Bowel Movements 1 1 Laboratory Tests 12/24/19 04:30: White Blood Count 9.1, Red Blood Count 2.66L, Hemoglobin 8.0L, Hematocrit 23.7L , Mean Corpuscular Volume 89, Mean Corpuscular Hemoglobin 30.2, Mean Corpuscular Hemoglobin Concent 33.8, Red Cell Distribution Width 12.6, Platelet Count 473H, Mean Platelet Volume 5.6L, Neutrophils (%) (Auto) 62.8, Lymphocytes (%) (Auto) 26.0, Monocytes (%) (Auto) 6.0, Eosinophils (%) (Auto) 3.8H, Basophils (%) (Auto) 1.4, Prothrombin Time 11.0, Prothromb Time International Ratio 1.0, Sodium Level 139, Potassium Level 3.9, Chloride Level 103, Carbon Dioxide Level 32, Anion Gap 4L, Blood Urea Nitrogen 8, Creatinine 0.7, Estimat Glomerular Filtration Rate > 60, Glucose Level 132H, Uric Acid 1.3L, Calcium Level 8.4L, Phosphorus Level 3.9, Magnesium Level 1.9, Total Bilirubin 0.2, Aspartate Amino Transf (AST/SGOT) 30, Alanine Aminotransferase (ALT/SGPT) [ Pending], Alkaline Phosphatase 63, C-Reactive Protein, Quantitative 13.0H, Pro-B -Type Natriuretic Peptide 55, Total Protein 6.8, Albumin 1.4L, Globulin 5.4, Albumin/Globulin Ratio 0.3L Height (Feet): 5 Height (Inches): 4.00 Weight (Pounds): 161 General Appearance: no apparent distress Neck: normal alignment Cardiovascular: normal rate Respiratory/Chest: lungs clear Abdomen: normal bowel sounds Pelvis: normal external exam Objective Current Medications Medications (Trade) Dose Ordered Sig/Esequiel Route PRN Reason Start Time Stop Time Status Last Admin Dose Admin Acetaminophen (Tylenol) 650 mg Q4H PRN GT Mild Pain (Pain Scale 1-3) 12/22/19 19:00 01/10/20 18:59 Acetaminophen (Tylenol) 650 mg Q4H PRN ORAL Mild Pain (Pain Scale 1-3) 12/24/19 07:00 12/24/19 18:00 Acetaminophen (Tylenol) 650 mg Q4H PRN RECTAL Mild Pain (Pain Scale 1-3) 12/22/19 19:00 01/10/20 18:59 Al Hydroxide/Mg Hydroxide (Mylanta) 15 ml Q1H PRN ORAL gi upset 12/24/19 07:00 12/24/19 18:00 Atropine Sulfate (Atropine) 0.5 mg Q5M PRN IV bpm less than 45 12/24/19 07:00 12/24/19 18:00 Barium Sulfate (Varibar Honey) 250 ml NOW PRN MC RAD 12/23/19 11:45 12/25/19 11:37 Barium Sulfate (Varibar [place]) 240 ml NOW PRN MC RAD 12/23/19 11:45 12/25/19 11:37 Barium Sulfate (Varibar Pudding) 230 ml NOW PRN RAD 12/23/19 11:45 12/25/19 11:37 Chlorhexidine Gluconate (Bijal-Hex 2%) 1 applic DAILY@2000 TOPIC 12/22/19 20:00 03/11/20 19:59 12/23/19 20:22 Dextrose (Dextrose 50%) 25 ml Q30M PRN IV Hypoglycemia 12/22/19 19:00 03/12/20 01:59 Dextrose (Dextrose 50%) 50 ml Q30M PRN IV Hypoglycemia 12/22/19 19:00 03/12/20 01:59 Dextrose/ Electrolytes 1,000 ml @ 40 mls/hr Q24H IV 12/22/19 19:00 01/21/20 16:07 12/23/19 18:01 Diphenhydramine HCl (Benadryl) 25 mg Q15M PRN IVP Itching 12/24/19 07:00 12/24/19 18:00 Fentanyl Citrate (Sublimaze 100 mcg/2 mL) 25 mcg Q10M PRN IV Moderate Pain (Pain Scale 4-6) 12/24/19 07:00 12/24/19 18:00 Hydralazine HCl (Apresoline) 5 mg Q30M PRN IV SBP>160 OR___/DBP>90 OR___ 12/24/19 07:00 12/24/19 18:00 Insulin Aspart (NovoLOG) Q6HR SUBQ 12/23/19 00:00 03/12/20 04:59 12/23/19 23:45 Insulin Detemir (Levemir) 20 units Q12HR SUBQ 12/23/19 21:00 03/20/20 08:59 12/23/19 20:43 Iron Sucrose 100 mg/Sodium Chloride 60 ml @ 240 mls/hr BEDTIME IV 12/22/19 21:00 12/24/19 21:14 12/23/19 20:26 Lactobacillus Acidophilus (Culturelle) 1 tab THREE TIMES A DAY NG 12/23/19 09:00 03/18/20 12:59 12/23/19 17:55 Loperamide HCl (Imodium) 2 mg Q4H PRN ORAL Diarrhea 12/22/19 19:00 01/21/20 18:59 Midazolam HCl (Versed 2mg/2ml vial) 1 mg Q15M PRN IVP For Anxiety 12/24/19 07:00 12/24/19 18:00 Ondansetron HCl (Zofran) 4 mg Q1H PRN IVP Nausea & Vomiting 12/24/19 07:00 12/24/19 18:00 Ondansetron HCl (Zofran) 4 mg Q6H PRN IVP Nausea & Vomiting 12/22/19 19:00 01/10/20 18:59 Pantoprazole (Protonix) 40 mg EVERY 12 HOURS IVP 12/22/19 21:00 01/11/20 08:59 12/23/19 20:22 Piperacillin Sod/ Tazobactam Sod 3.375 gm/Sodium Chloride 110 ml @ 27.5 mls/hr Q8H IVPB 12/22/19 19:00 12/28/19 10:59 12/24/19 03:24 Potassium Chloride (K-Dur) 40 meq BID ORAL 12/23/19 09:00 03/17/20 08:59 12/23/19 17:56 Sodium Chloride 1,000 ml @ 10 mls/hr Q24H IVLG 12/24/19 06:49 12/24/19 08:48 Spironolactone (Aldactone) 25 mg BID ORAL 12/23/19 09:00 01/17/20 10:59 12/23/19 17:55 Stef Ortega MD December 24, 2019 06:59
[2019-12-24] MEDS ORDERED: Midazolam 2mg/2ml Inj IVP PRN (07:00)
[2019-12-24] MEDS ORDERED: DiphenhydrAMINE 50mg/ml Inj IVP PRN (07:00)
[2019-12-24] MEDS ORDERED: Atropine Inj 1mg/10ml Syr IV PRN (07:00)
[2019-12-24] MEDS ORDERED: fentaNYL 100 mcg/2 mL IV PRN (07:00)
--- NOTE | 2019-12-24 07:07 | Anethesia Preoperative Eval ---
Anesthesia Pre-op PMH/ROS General Date of Evaluation: December 24, 2019 Time of Evaluation: 07:07 Mallampati Score Class I : Soft palate, uvula, fauces, pillars visible Class II: Soft palate, uvula, fauces visible Class III: Soft palate, base of uvula visible Class IV: Only hard plate visible Allergies: Coded Allergies: No Known Allergies (Unverified , 12/11/19) Anesthesia Pre-op Phys. Exam Physician Exam Last Vital Signs Date Time Temp Pulse Resp B/P (MAP) Pulse Ox O2 Delivery O2 Flow Rate FiO2 12/24/19 04:00 98.2 112 30 116/70 (85) 99 12/23/19 21:00 Nasal Cannula 2.0 12/23/19 20:19 28 Anesthesia Pre-op A/P Labs Hematology Test 12/24/19 04:30 White Blood Count 9.1 K/UL (4.8-10.8) Red Blood Count 2.66 M/UL (4.20-5.40) L Hemoglobin 8.0 G/DL (12.0-16.0) L Hematocrit 23.7 % (37.0-47.0) L Mean Corpuscular Volume 89 FL (80-99) Mean Corpuscular Hemoglobin 30.2 PG (27.0-31.0) Mean Corpuscular Hemoglobin Concent 33.8 G/DL (32.0-36.0) Red Cell Distribution Width 12.6 % (11.6-14.8) Platelet Count 473 K/UL (150-450) H Mean Platelet Volume 5.6 FL (6.5-10.1) L Neutrophils (%) (Auto) 62.8 % (45.0-75.0) Lymphocytes (%) (Auto) 26.0 % (20.0-45.0) Monocytes (%) (Auto) 6.0 % (1.0-10.0) Eosinophils (%) (Auto) 3.8 % (0.0-3.0) H Basophils (%) (Auto) 1.4 % (0.0-2.0) Coagulation Test 12/24/19 04:30 Prothrombin Time 11.0 SEC (9.30-11.50) Prothromb Time International Ratio 1.0 (0.9-1.1) Chemistry Test 12/24/19 04:30 Sodium Level 139 MMOL/L (136-145) Potassium Level 3.9 MMOL/L (3.5-5.1) Chloride Level 103 MMOL/L (98-107) Carbon Dioxide Level 32 MMOL/L (21-32) Anion Gap 4 mmol/L (5-15) L Blood Urea Nitrogen 8 mg/dL (7-18) Creatinine 0.7 MG/DL (0.55-1.30) Estimat Glomerular Filtration Rate > 60 mL/min (>60) Glucose Level 132 MG/DL (74-106) H Uric Acid 1.3 MG/DL (2.6-7.2) L Calcium Level 8.4 MG/DL (8.5-10.1) L Phosphorus Level 3.9 MG/DL (2.5-4.9) Magnesium Level 1.9 MG/DL (1.8-2.4) Total Bilirubin 0.2 MG/DL (0.2-1.0) Aspartate Amino Transf (AST/SGOT) 30 U/L (15-37) Alanine Aminotransferase (ALT/SGPT) Pending Alkaline Phosphatase 63 U/L (46-116) C-Reactive Protein, Quantitative 13.0 mg/dL (0.00-0.90) H Pro-B-Type Natriuretic Peptide 55 pg/mL (0-125) Total Protein 6.8 G/DL (6.4-8.2) Albumin 1.4 G/DL (3.4-5.0) L Globulin 5.4 g/dL Albumin/Globulin Ratio 0.3 (1.0-2.7) L Salome Lundberg MD December 24, 2019 07:07
[2019-12-24 07:38] LABS: ALANINE AMINOTRANSFERASE 20 U/L (12-78)
[2019-12-24 08:00] VITALS: BP 107/58
[2019-12-24] MEDS: Pantoprazole Inj IVP SCH ×2 (08:38→21:19)
[2019-12-24] MEDS: Lactobacillus-GG tablet NG SCH ×3 (08:38→17:30)
[2019-12-24] MEDS: Spironolactone 25mg tab ORAL SCH ×2 (08:38→17:30)
[2019-12-24] MEDS: Levemir Flexpen SUBQ SCH ×2 (08:57→21:31)
--- NOTE | 2019-12-24 09:22 | General Progress Note ---
Assessment/Plan Problem List: (1) Coffee ground emesis ICD Codes: K92.0 - Hematemesis SNOMED: 38158251 (2) High blood urea nitrogen (BUN) ICD Codes: R79.9 - Abnormal finding of blood chemistry, unspecified SNOMED: 649666769, 577592931 (3) High serum creatine ICD Codes: R79.89 - Other specified abnormal findings of blood chemistry SNOMED: 309869686, 651274012 (4) DKA (diabetic ketoacidoses) ICD Codes: E11.10 - Type 2 diabetes mellitus with ketoacidosis without coma SNOMED: 066755608, 78863237 Qualifiers: Qualified Codes: E13.11 - Other specified diabetes mellitus with ketoacidosis with coma (5) Altered mental status ICD Codes: R41.82 - Altered mental status, unspecified SNOMED: 475228585, 89118185 Qualifiers: Qualified Codes: R41.82 - Altered mental status, unspecified (6) Cardiac arrest ICD Codes: I46.9 - Cardiac arrest, cause unspecified SNOMED: 005653238 (7) Respiratory distress ICD Codes: R06.03 - Acute respiratory distress SNOMED: 980753102 Assessment/Plan: s/p 2 units prbc in this admission positive stool ob x1 ppi iv BID monitor H&H transfuse to keep HGB above 7.5 patient is tachypneic on 10 lit o2 tachycardic PEG was canceled by anesthesia for today resume NGT plan PEG next week if stable Subjective ROS Limited/Unobtainable: No Allergies: Coded Allergies: No Known Allergies (Unverified , 12/11/19) Objective Last 24 Hour Vital Signs Date Time Temp Pulse Resp B/P (MAP) Pulse Ox O2 Delivery O2 Flow Rate FiO2 12/24/19 04:00 98.2 112 30 116/70 (85) 99 12/24/19 00:00 99.7 111 36 116/66 (83) 90 12/23/19 21:00 Nasal Cannula 2.0 12/23/19 20:19 97 Nasal Cannula 2.0 28 12/23/19 20:00 99.5 109 26 127/72 (90) 90 12/23/19 16:00 99.1 87 20 106/64 (78) 98 12/23/19 12:00 96.7 83 19 137/76 (96) 97 Intake and Output 12/23/19 12/24/19 19:00 07:00 Intake Total 1010.0 ml Output Total 1100 ml Balance 1010.0 ml -1100 ml Free Water 100 ml IV Total 370.0 ml Tube Feeding 540 ml Output Urine Total 1100 ml # Bowel Movements 1 2 Laboratory Tests 12/24/19 04:30: White Blood Count 9.1, Red Blood Count 2.66L, Hemoglobin 8.0L, Hematocrit 23.7L , Mean Corpuscular Volume 89, Mean Corpuscular Hemoglobin 30.2, Mean Corpuscular Hemoglobin Concent 33.8, Red Cell Distribution Width 12.6, Platelet Count 473H, Mean Platelet Volume 5.6L, Neutrophils (%) (Auto) 62.8, Lymphocytes (%) (Auto) 26.0, Monocytes (%) (Auto) 6.0, Eosinophils (%) (Auto) 3.8H, Basophils (%) (Auto) 1.4, Prothrombin Time 11.0, Prothromb Time International Ratio 1.0, Sodium Level 139, Potassium Level 3.9, Chloride Level 103, Carbon Dioxide Level 32, Anion Gap 4L, Blood Urea Nitrogen 8, Creatinine 0.7, Estimat Glomerular Filtration Rate > 60, Glucose Level 132H, Uric Acid 1.3L, Calcium Level 8.4L, Phosphorus Level 3.9, Magnesium Level 1.9, Total Bilirubin 0.2, Aspartate Amino Transf (AST/SGOT) 30, Alanine Aminotransferase (ALT/SGPT) 20, Alkaline Phosphatase 63, C-Reactive Protein, Quantitative 13.0H, Pro-B-Type Natriuretic Peptide 55, Total Protein 6.8, Albumin 1.4L, Globulin 5.4, Albumin/ Globulin Ratio 0.3L Height (Feet): 5 Height (Inches): 4.00 Weight (Pounds): 161 General Appearance: lethargic EENT: normal ENT inspection Neck: supple Cardiovascular: tachycardia Respiratory/Chest: decreased breath sounds Abdomen: normal bowel sounds, non tender, soft Extremities: non-tender Maykel Stephen MD December 24, 2019 09:22
--- NOTE | 2019-12-24 10:15 | Nephrology Progress Note ---
Assessment/Plan Problem List: (1) DEANDRA (acute kidney injury) Assessment: Resolved (2) Hypotension (3) Cardiac arrest (4) DKA (diabetic ketoacidoses) (5) Respiratory distress (6) Coffee ground emesis (7) Electrolyte imbalance Assessment Acute renal failure which probably is superimposed on chronic kidney disease History of diabetes mellitus, most likely diabetic nephropathy. Presents with diabetic ketoacidosis Acute respiratory failure requiring intubation and mechanical ventilation Aspiration pneumonia, upper GI bleed Proteinuria and severe hypoalbuminemia should rule out nephrotic range proteinuria Anemia Electrolyte imbalances Plan Patient due for PEG when cleared by anesthesia Meanwhile continue NG tube feeding Electrolytes seems to be reasonably corrected Previously: Off Reglan as the patient has diarrhea C. difficile negative Patient is doing well post extubation Will replace potassium, magnesium, and phosphorus as needed Previously 2 units of packed RBCs was transfused Hydrate as needed and monitor electrolytes Per orders Previously Monitor renal parameters Avoid nephrotoxic's Anemia work-up Urine studies Keep blood sugar and blood pressure in check Per consultants Discussed with RN Subjective ROS Limited/Unobtainable: No Constitutional: Reports: malaise, weakness Objective Objective Last 24 Hour Vital Signs Date Time Temp Pulse Resp B/P (MAP) Pulse Ox O2 Delivery O2 Flow Rate FiO2 12/24/19 09:00 Simple Mask 10.0 12/24/19 08:00 97.9 109 30 107/58 (74) 95 12/24/19 04:00 98.2 112 30 116/70 (85) 99 12/24/19 00:00 99.7 111 36 116/66 (83) 90 12/23/19 21:00 Nasal Cannula 2.0 12/23/19 20:19 97 Nasal Cannula 2.0 28 12/23/19 20:00 99.5 109 26 127/72 (90) 90 12/23/19 16:00 99.1 87 20 106/64 (78) 98 12/23/19 12:00 96.7 83 19 137/76 (96) 97 Intake and Output 12/23/19 12/24/19 18:59 06:59 Intake Total 1220.0 ml Output Total 1100 ml Balance 1220.0 ml -1100 ml Free Water 100 ml IV Total 520.0 ml Tube Feeding 600 ml Output Urine Total 1100 ml # Bowel Movements 1 2 Laboratory Tests 12/24/19 04:30: White Blood Count 9.1, Red Blood Count 2.66L, Hemoglobin 8.0L, Hematocrit 23.7L , Mean Corpuscular Volume 89, Mean Corpuscular Hemoglobin 30.2, Mean Corpuscular Hemoglobin Concent 33.8, Red Cell Distribution Width 12.6, Platelet Count 473H, Mean Platelet Volume 5.6L, Neutrophils (%) (Auto) 62.8, Lymphocytes (%) (Auto) 26.0, Monocytes (%) (Auto) 6.0, Eosinophils (%) (Auto) 3.8H, Basophils (%) (Auto) 1.4, Prothrombin Time 11.0, Prothromb Time International Ratio 1.0, Sodium Level 139, Potassium Level 3.9, Chloride Level 103, Carbon Dioxide Level 32, Anion Gap 4L, Blood Urea Nitrogen 8, Creatinine 0.7, Estimat Glomerular Filtration Rate > 60, Glucose Level 132H, Uric Acid 1.3L, Calcium Level 8.4L, Phosphorus Level 3.9, Magnesium Level 1.9, Total Bilirubin 0.2, Aspartate Amino Transf (AST/SGOT) 30, Alanine Aminotransferase (ALT/SGPT) 20, Alkaline Phosphatase 63, C-Reactive Protein, Quantitative 13.0H, Pro-B-Type Natriuretic Peptide 55, Total Protein 6.8, Albumin 1.4L, Globulin 5.4, Albumin/ Globulin Ratio 0.3L Height (Feet): 5 Height (Inches): 4.00 Weight (Pounds): 161 Cardiovascular: tachycardia Respiratory/Chest: decreased breath sounds Abdomen: distended Don Ventura MD December 24, 2019 10:15
--- NOTE | 2019-12-24 10:28 | Infectious Diseases Prog Note ---
Assessment/Plan Assessment/Plan antibiotics : zosyn A 1. pneumonia COVID 19 test negative 2. Diabetic ketoacidosis resolving 3. Renal failure resolved 4. Leukocytosis resolved 5. fever improving PLAN: 1. d/c zosyn 2. observe off antibiotics 3. will follow up cultures Subjective Constitutional: Denies: fever, chills Respiratory: Reports: shortness of breath, dry cough Gastrointestinal/Abdominal: Denies: nausea, vomiting, diarrhea Musculoskeletal: Denies: pain Allergies: Coded Allergies: No Known Allergies (Unverified , 12/11/19) Objective Vital Signs Last 24 Hour Vital Signs Date Time Temp Pulse Resp B/P (MAP) Pulse Ox O2 Delivery O2 Flow Rate FiO2 12/24/19 09:00 Simple Mask 10.0 12/24/19 08:00 97.9 109 30 107/58 (74) 95 12/24/19 04:00 98.2 112 30 116/70 (85) 99 12/24/19 00:00 99.7 111 36 116/66 (83) 90 12/23/19 21:00 Nasal Cannula 2.0 12/23/19 20:19 97 Nasal Cannula 2.0 28 12/23/19 20:00 99.5 109 26 127/72 (90) 90 12/23/19 16:00 99.1 87 20 106/64 (78) 98 12/23/19 12:00 96.7 83 19 137/76 (96) 97 Height (Feet): 5 Height (Inches): 4.00 Weight (Pounds): 161 Respiratory/Chest: lungs clear Cardiovascular: normal rate, regular rhythm, no gallop/murmur Abdomen: soft, non tender Extremities: no edema Microbiology Date/Time Source Procedure Growth Status 12/21/19 11:05 Blood Blood Culture - Preliminary NO GROWTH AFTER 48 HOURS Resulted Laboratory Tests Test 12/24/19 04:30 White Blood Count 9.1 K/UL (4.8-10.8) Red Blood Count 2.66 M/UL (4.20-5.40) L Hemoglobin 8.0 G/DL (12.0-16.0) L Hematocrit 23.7 % (37.0-47.0) L Mean Corpuscular Volume 89 FL (80-99) Mean Corpuscular Hemoglobin 30.2 PG (27.0-31.0) Mean Corpuscular Hemoglobin Concent 33.8 G/DL (32.0-36.0) Red Cell Distribution Width 12.6 % (11.6-14.8) Platelet Count 473 K/UL (150-450) H Mean Platelet Volume 5.6 FL (6.5-10.1) L Neutrophils (%) (Auto) 62.8 % (45.0-75.0) Lymphocytes (%) (Auto) 26.0 % (20.0-45.0) Monocytes (%) (Auto) 6.0 % (1.0-10.0) Eosinophils (%) (Auto) 3.8 % (0.0-3.0) H Basophils (%) (Auto) 1.4 % (0.0-2.0) Prothrombin Time 11.0 SEC (9.30-11.50) Prothromb Time International Ratio 1.0 (0.9-1.1) Sodium Level 139 MMOL/L (136-145) Potassium Level 3.9 MMOL/L (3.5-5.1) Chloride Level 103 MMOL/L (98-107) Carbon Dioxide Level 32 MMOL/L (21-32) Anion Gap 4 mmol/L (5-15) L Blood Urea Nitrogen 8 mg/dL (7-18) Creatinine 0.7 MG/DL (0.55-1.30) Estimat Glomerular Filtration Rate > 60 mL/min (>60) Glucose Level 132 MG/DL (74-106) H Uric Acid 1.3 MG/DL (2.6-7.2) L Calcium Level 8.4 MG/DL (8.5-10.1) L Phosphorus Level 3.9 MG/DL (2.5-4.9) Magnesium Level 1.9 MG/DL (1.8-2.4) Total Bilirubin 0.2 MG/DL (0.2-1.0) Aspartate Amino Transf (AST/SGOT) 30 U/L (15-37) Alanine Aminotransferase (ALT/SGPT) 20 U/L (12-78) Alkaline Phosphatase 63 U/L (46-116) C-Reactive Protein, Quantitative 13.0 mg/dL (0.00-0.90) H Pro-B-Type Natriuretic Peptide 55 pg/mL (0-125) Total Protein 6.8 G/DL (6.4-8.2) Albumin 1.4 G/DL (3.4-5.0) L Globulin 5.4 g/dL Albumin/Globulin Ratio 0.3 (1.0-2.7) L Current Medications Medications (Trade) Dose Ordered Sig/Esequiel Route PRN Reason Start Time Stop Time Status Last Admin Dose Admin Acetaminophen (Tylenol) 650 mg Q4H PRN GT Mild Pain (Pain Scale 1-3) 12/22/19 19:00 01/10/20 18:59 Acetaminophen (Tylenol) 650 mg Q4H PRN ORAL Mild Pain (Pain Scale 1-3) 12/24/19 07:00 12/24/19 18:00 Acetaminophen (Tylenol) 650 mg Q4H PRN RECTAL Mild Pain (Pain Scale 1-3) 12/22/19 19:00 01/10/20 18:59 Al Hydroxide/Mg Hydroxide (Mylanta) 15 ml Q1H PRN ORAL gi upset 12/24/19 07:00 12/24/19 18:00 Atropine Sulfate (Atropine) 0.5 mg Q5M PRN IV bpm less than 45 12/24/19 07:00 12/24/19 18:00 Barium Sulfate (Varibar Honey) 250 ml NOW PRN MC RAD 12/23/19 11:45 12/25/19 11:37 Barium Sulfate (Varibar [place]) 240 ml NOW PRN MC RAD 12/23/19 11:45 12/25/19 11:37 Barium Sulfate (Varibar [place]ud[place]) 230 ml NOW PRN MC RAD 12/23/19 11:45 12/25/19 11:37 Chlorhexidine Gluconate (Bijal-Hex 2%) 1 applic DAILY@2000 TOPIC 12/22/19 20:00 03/11/20 19:59 12/23/19 20:22 Dextrose (Dextrose 50%) 25 ml Q30M PRN IV Hypoglycemia 12/22/19 19:00 03/12/20 01:59 Dextrose (Dextrose 50%) 50 ml Q30M PRN IV Hypoglycemia 12/22/19 19:00 03/12/20 01:59 Dextrose/ Electrolytes 1,000 ml @ 40 mls/hr Q24H IV 12/22/19 19:00 01/21/20 16:07 12/23/19 18:01 Diphenhydramine HCl (Benadryl) 25 mg Q15M PRN IVP Itching 12/24/19 07:00 12/24/19 18:00 Fentanyl Citrate (Sublimaze 100 mcg/2 mL) 25 mcg Q10M PRN IV Moderate Pain (Pain Scale 4-6) 12/24/19 07:00 12/24/19 18:00 Hydralazine HCl (Apresoline) 5 mg Q30M PRN IV SBP>160 OR___/DBP>90 OR___ 12/24/19 07:00 12/24/19 18:00 Insulin Aspart (NovoLOG) Q6HR SUBQ 12/23/19 00:00 03/12/20 04:59 12/23/19 23:45 Insulin Detemir (Levemir) 20 units Q12HR SUBQ 12/23/19 21:00 03/20/20 08:59 12/24/19 08:57 Iron Sucrose 100 mg/Sodium Chloride 60 ml @ 240 mls/hr BEDTIME IV 12/22/19 21:00 12/24/19 21:14 12/23/19 20:26 Lactobacillus Acidophilus (Culturelle) 1 tab THREE TIMES A DAY NG 12/23/19 09:00 03/18/20 12:59 12/24/19 08:38 Loperamide HCl (Imodium) 2 mg Q4H PRN ORAL Diarrhea 12/22/19 19:00 01/21/20 18:59 Midazolam HCl (Versed 2mg/2ml vial) 1 mg Q15M PRN IVP For Anxiety 12/24/19 07:00 12/24/19 18:00 Ondansetron HCl (Zofran) 4 mg Q1H PRN IVP Nausea & Vomiting 12/24/19 07:00 12/24/19 18:00 Ondansetron HCl (Zofran) 4 mg Q6H PRN IVP Nausea & Vomiting 12/22/19 19:00 01/10/20 18:59 Pantoprazole (Protonix) 40 mg EVERY 12 HOURS IVP 12/22/19 21:00 01/11/20 08:59 12/24/19 08:38 Piperacillin Sod/ Tazobactam Sod 3.375 gm/Sodium Chloride 110 ml @ 27.5 mls/hr Q8H IVPB 12/22/19 19:00 12/28/19 10:59 12/24/19 03:24 Potassium Chloride (K-Dur) 40 meq BID ORAL 12/23/19 09:00 03/17/20 08:59 12/24/19 08:39 Spironolactone (Aldactone) 25 mg BID ORAL 12/23/19 09:00 01/17/20 10:59 12/24/19 08:38 Eden Salvador MD December 24, 2019 10:28
[2019-12-24 12:00] VITALS: BP 110/63
--- NOTE | 2019-12-24 12:04 | Pulmonology Progress Note ---
Subjective ROS Limited/Unobtainable: No Interval Events: Extubated 12/13/19; NGT in place Constitutional: Denies: fever, chills HEENT: Repors: no symptoms Respiratory: Reports: no symptoms Cardiovascular: Reports: no symptoms Gastrointestinal/Abdominal: Denies: nausea, vomiting, diarrhea Genitourinary: Reports: no symptoms Musculoskeletal: Denies: pain Allergies: Coded Allergies: No Known Allergies (Unverified , 12/11/19) All Systems: reviewed and negative except above Objective Last 24 Hour Vital Signs Date Time Temp Pulse Resp B/P (MAP) Pulse Ox O2 Delivery O2 Flow Rate FiO2 12/24/19 09:00 Simple Mask 10.0 12/24/19 08:00 97.9 109 30 107/58 (74) 95 12/24/19 04:00 98.2 112 30 116/70 (85) 99 12/24/19 00:00 99.7 111 36 116/66 (83) 90 12/23/19 21:00 Nasal Cannula 2.0 12/23/19 20:19 97 Nasal Cannula 2.0 28 12/23/19 20:00 99.5 109 26 127/72 (90) 90 12/23/19 16:00 99.1 87 20 106/64 (78) 98 Intake and Output 12/23/19 12/24/19 19:00 07:00 Intake Total 1010.0 ml Output Total 1100 ml Balance 1010.0 ml -1100 ml Free Water 100 ml IV Total 370.0 ml Tube Feeding 540 ml Output Urine Total 1100 ml # Bowel Movements 1 2 General Appearance: no acute distress HEENT: normocephalic Respiratory: chest wall non-tender, lungs clear Cardiovascular: normal peripheral pulses, normal rate Abdomen: normal bowel sounds Laboratory Tests 12/24/19 04:30: White Blood Count 9.1, Red Blood Count 2.66L, Hemoglobin 8.0L, Hematocrit 23.7L , Mean Corpuscular Volume 89, Mean Corpuscular Hemoglobin 30.2, Mean Corpuscular Hemoglobin Concent 33.8, Red Cell Distribution Width 12.6, Platelet Count 473H, Mean Platelet Volume 5.6L, Neutrophils (%) (Auto) 62.8, Lymphocytes (%) (Auto) 26.0, Monocytes (%) (Auto) 6.0, Eosinophils (%) (Auto) 3.8H, Basophils (%) (Auto) 1.4, Prothrombin Time 11.0, Prothromb Time International Ratio 1.0, Sodium Level 139, Potassium Level 3.9, Chloride Level 103, Carbon Dioxide Level 32, Anion Gap 4L, Blood Urea Nitrogen 8, Creatinine 0.7, Estimat Glomerular Filtration Rate > 60, Glucose Level 132H, Uric Acid 1.3L, Calcium Level 8.4L, Phosphorus Level 3.9, Magnesium Level 1.9, Total Bilirubin 0.2, Aspartate Amino Transf (AST/SGOT) 30, Alanine Aminotransferase (ALT/SGPT) 20, Alkaline Phosphatase 63, C-Reactive Protein, Quantitative 13.0H, Pro-B-Type Natriuretic Peptide 55, Total Protein 6.8, Albumin 1.4L, Globulin 5.4, Albumin/ Globulin Ratio 0.3L Current Medications Medications (Trade) Dose Ordered Sig/Esequiel Route PRN Reason Start Time Stop Time Status Last Admin Dose Admin Acetaminophen (Tylenol) 650 mg Q4H PRN GT Mild Pain (Pain Scale 1-3) 12/22/19 19:00 01/10/20 18:59 Acetaminophen (Tylenol) 650 mg Q4H PRN ORAL Mild Pain (Pain Scale 1-3) 12/24/19 07:00 12/24/19 18:00 Acetaminophen (Tylenol) 650 mg Q4H PRN RECTAL Mild Pain (Pain Scale 1-3) 12/22/19 19:00 01/10/20 18:59 Al Hydroxide/Mg Hydroxide (Mylanta) 15 ml Q1H PRN ORAL gi upset 12/24/19 07:00 12/24/19 18:00 Atropine Sulfate (Atropine) 0.5 mg Q5M PRN IV bpm less than 45 12/24/19 07:00 12/24/19 18:00 Barium Sulfate (Varibar Honey) 250 ml NOW PRN MC RAD 12/23/19 11:45 12/25/19 11:37 Barium Sulfate (Varibar [place]) 240 ml NOW PRN MC RAD 12/23/19 11:45 12/25/19 11:37 Barium Sulfate (Varibar Pudding) 230 ml NOW PRN MC RAD 12/23/19 11:45 12/25/19 11:37 Chlorhexidine Gluconate (Bijal-Hex 2%) 1 applic DAILY@1999 TOPIC 12/22/19 20:00 03/11/20 19:59 12/23/19 20:22 Dextrose (Dextrose 50%) 25 ml Q30M PRN IV Hypoglycemia 12/22/19 19:00 03/12/20 01:59 Dextrose (Dextrose 50%) 50 ml Q30M PRN IV Hypoglycemia 12/22/19 19:00 03/12/20 01:59 Dextrose/ Electrolytes 1,000 ml @ 40 mls/hr Q24H IV 12/22/19 19:00 01/21/20 16:07 12/23/19 18:01 Diphenhydramine HCl (Benadryl) 25 mg Q15M PRN IVP Itching 12/24/19 07:00 12/24/19 18:00 Fentanyl Citrate (Sublimaze 100 mcg/2 mL) 25 mcg Q10M PRN IV Moderate Pain (Pain Scale 4-6) 12/24/19 07:00 12/24/19 18:00 Hydralazine HCl (Apresoline) 5 mg Q30M PRN IV SBP>160 OR___/DBP>90 OR___ 12/24/19 07:00 12/24/19 18:00 Insulin Aspart (NovoLOG) Q6HR SUBQ 12/23/19 00:00 03/12/20 04:59 12/23/19 23:45 Insulin Detemir (Levemir) 20 units Q12HR SUBQ 12/23/19 21:00 03/20/20 08:59 12/24/19 08:57 Iron Sucrose 100 mg/Sodium Chloride 60 ml @ 240 mls/hr BEDTIME IV 12/22/19 21:00 12/24/19 21:14 12/23/19 20:26 Lactobacillus Acidophilus (Culturelle) 1 tab THREE TIMES A DAY NG 12/23/19 09:00 03/18/20 12:59 12/24/19 08:38 Loperamide HCl (Imodium) 2 mg Q4H PRN ORAL Diarrhea 12/22/19 19:00 01/21/20 18:59 Midazolam HCl (Versed 2mg/2ml vial) 1 mg Q15M PRN IVP For Anxiety 12/24/19 07:00 12/24/19 18:00 Ondansetron HCl (Zofran) 4 mg Q1H PRN IVP Nausea & Vomiting 12/24/19 07:00 12/24/19 18:00 Ondansetron HCl (Zofran) 4 mg Q6H PRN IVP Nausea & Vomiting 12/22/19 19:00 01/10/20 18:59 Pantoprazole (Protonix) 40 mg EVERY 12 HOURS IVP 12/22/19 21:00 01/11/20 08:59 12/24/19 08:38 Potassium Chloride (K-Dur) 40 meq BID ORAL 12/23/19 09:00 03/17/20 08:59 12/24/19 08:39 Spironolactone (Aldactone) 25 mg BID ORAL 12/23/19 09:00 01/17/20 10:59 12/24/19 08:38 Assessment/Plan Assessment/Plan IMPRESSION: 1. DKA. Resolved 2. Upper GI bleed. 3. Respiratory failure. Now extubated 4. Lactic acidosis. DISCUSSION: Continue antibiotics I will continue oxygen, Protonix, DVT prophylaxis. Saturating 100% on 2L/min O2 S/P PEG Osorio Harris Omar Syed MD December 24, 2019 12:04
--- NOTE | 2019-12-24 13:03 | Cardiac Electrophysiology PN ---
Assessment/Plan Assessment/Plan 1. S/P Septic shock. Off pressors. EF 60%. EKG shows sinus tachycardia with no acute ST-T wave abnormalities. 2. S/P Respiratory failure, Extubated. On 10 liter NC again 3. Hypotension. Resolved 4. Coffee-ground emesis. S/P 2 units of PRBC 5. S/P Diabetic ketoacidosis 6. Persistent hypokalemia. Improved on aldactone 25 bid and KCL po by Dr Ventura 7. Failed swallow eval. NG tube. PEG rescheduled for Friday by Dr. Zafar HINOJOSA RN and Dr Ventura Subjective Subjective 1st covid negative on 12/13. Second Covid pending. PEG rescheduled for Friday as now on 10 liter O2 Objective Last 24 Hour Vital Signs Date Time Temp Pulse Resp B/P (MAP) Pulse Ox O2 Delivery O2 Flow Rate FiO2 12/24/19 12:00 97.8 98 27 110/63 (79) 96 12/24/19 09:00 Simple Mask 10.0 12/24/19 08:00 97.9 109 30 107/58 (74) 95 12/24/19 04:00 98.2 112 30 116/70 (85) 99 12/24/19 00:00 99.7 111 36 116/66 (83) 90 12/23/19 21:00 Nasal Cannula 2.0 12/23/19 20:19 97 Nasal Cannula 2.0 28 12/23/19 20:00 99.5 109 26 127/72 (90) 90 12/23/19 16:00 99.1 87 20 106/64 (78) 98 Intake and Output 12/23/19 12/24/19 19:00 07:00 Intake Total 1010.0 ml Output Total 1100 ml Balance 1010.0 ml -1100 ml Free Water 100 ml IV Total 370.0 ml Tube Feeding 540 ml Output Urine Total 1100 ml # Bowel Movements 1 2 Laboratory Tests Test 12/24/19 04:30 White Blood Count 9.1 K/UL (4.8-10.8) Red Blood Count 2.66 M/UL (4.20-5.40) L Hemoglobin 8.0 G/DL (12.0-16.0) L Hematocrit 23.7 % (37.0-47.0) L Mean Corpuscular Volume 89 FL (80-99) Mean Corpuscular Hemoglobin 30.2 PG (27.0-31.0) Mean Corpuscular Hemoglobin Concent 33.8 G/DL (32.0-36.0) Red Cell Distribution Width 12.6 % (11.6-14.8) Platelet Count 473 K/UL (150-450) H Mean Platelet Volume 5.6 FL (6.5-10.1) L Neutrophils (%) (Auto) 62.8 % (45.0-75.0) Lymphocytes (%) (Auto) 26.0 % (20.0-45.0) Monocytes (%) (Auto) 6.0 % (1.0-10.0) Eosinophils (%) (Auto) 3.8 % (0.0-3.0) H Basophils (%) (Auto) 1.4 % (0.0-2.0) Prothrombin Time 11.0 SEC (9.30-11.50) Prothromb Time International Ratio 1.0 (0.9-1.1) Sodium Level 139 MMOL/L (136-145) Potassium Level 3.9 MMOL/L (3.5-5.1) Chloride Level 103 MMOL/L (98-107) Carbon Dioxide Level 32 MMOL/L (21-32) Anion Gap 4 mmol/L (5-15) L Blood Urea Nitrogen 8 mg/dL (7-18) Creatinine 0.7 MG/DL (0.55-1.30) Estimat Glomerular Filtration Rate > 60 mL/min (>60) Glucose Level 132 MG/DL (74-106) H Uric Acid 1.3 MG/DL (2.6-7.2) L Calcium Level 8.4 MG/DL (8.5-10.1) L Phosphorus Level 3.9 MG/DL (2.5-4.9) Magnesium Level 1.9 MG/DL (1.8-2.4) Total Bilirubin 0.2 MG/DL (0.2-1.0) Aspartate Amino Transf (AST/SGOT) 30 U/L (15-37) Alanine Aminotransferase (ALT/SGPT) 20 U/L (12-78) Alkaline Phosphatase 63 U/L (46-116) C-Reactive Protein, Quantitative 13.0 mg/dL (0.00-0.90) H Pro-B-Type Natriuretic Peptide 55 pg/mL (0-125) Total Protein 6.8 G/DL (6.4-8.2) Albumin 1.4 G/DL (3.4-5.0) L Globulin 5.4 g/dL Albumin/Globulin Ratio 0.3 (1.0-2.7) L Objective HEAD AND NECK: No JVD. NGT feeding LUNGS: Coarse rhonchi. CARDIOVASCULAR: Irregular S1-S2 and tachycardic. ABDOMEN: Soft. EXTREMITIES: No pitting edema. Gerardo Dyer MD December 24, 2019 13:03
--- NOTE | 2019-12-24 15:41 | Surgery Progress Note ---
Surgery Progress Note Subjective Additional Comments stable ng in place labs noted Objective Last 24 Hour Vital Signs Date Time Temp Pulse Resp B/P (MAP) Pulse Ox O2 Delivery O2 Flow Rate FiO2 12/24/19 12:00 97.8 98 27 110/63 (79) 96 12/24/19 09:00 Simple Mask 10.0 12/24/19 08:00 97.9 109 30 107/58 (74) 95 12/24/19 04:00 98.2 112 30 116/70 (85) 99 12/24/19 00:00 99.7 111 36 116/66 (83) 90 12/23/19 21:00 Nasal Cannula 2.0 12/23/19 20:19 97 Nasal Cannula 2.0 28 12/23/19 20:00 99.5 109 26 127/72 (90) 90 12/23/19 16:00 99.1 87 20 106/64 (78) 98 I&O Intake and Output 12/23/19 12/24/19 19:00 07:00 Intake Total 1010.0 ml 40 ml Output Total 1100 ml Balance 1010.0 ml -1060 ml Free Water 100 ml IV Total 370.0 ml 40 ml Tube Feeding 540 ml Output Urine Total 1100 ml # Bowel Movements 1 2 Dressing: other Wound: other Drains: other Cardiovascular: RSR Respiratory: decreased breath sounds Abdomen: soft, non-tender, present bowel sounds Extremities: no cyanosis Laboratory Tests Test 12/24/19 04:30 White Blood Count 9.1 K/UL (4.8-10.8) Red Blood Count 2.66 M/UL (4.20-5.40) L Hemoglobin 8.0 G/DL (12.0-16.0) L Hematocrit 23.7 % (37.0-47.0) L Mean Corpuscular Volume 89 FL (80-99) Mean Corpuscular Hemoglobin 30.2 PG (27.0-31.0) Mean Corpuscular Hemoglobin Concent 33.8 G/DL (32.0-36.0) Red Cell Distribution Width 12.6 % (11.6-14.8) Platelet Count 473 K/UL (150-450) H Mean Platelet Volume 5.6 FL (6.5-10.1) L Neutrophils (%) (Auto) 62.8 % (45.0-75.0) Lymphocytes (%) (Auto) 26.0 % (20.0-45.0) Monocytes (%) (Auto) 6.0 % (1.0-10.0) Eosinophils (%) (Auto) 3.8 % (0.0-3.0) H Basophils (%) (Auto) 1.4 % (0.0-2.0) Prothrombin Time 11.0 SEC (9.30-11.50) Prothromb Time International Ratio 1.0 (0.9-1.1) Sodium Level 139 MMOL/L (136-145) Potassium Level 3.9 MMOL/L (3.5-5.1) Chloride Level 103 MMOL/L (98-107) Carbon Dioxide Level 32 MMOL/L (21-32) Anion Gap 4 mmol/L (5-15) L Blood Urea Nitrogen 8 mg/dL (7-18) Creatinine 0.7 MG/DL (0.55-1.30) Estimat Glomerular Filtration Rate > 60 mL/min (>60) Glucose Level 132 MG/DL (74-106) H Uric Acid 1.3 MG/DL (2.6-7.2) L Calcium Level 8.4 MG/DL (8.5-10.1) L Phosphorus Level 3.9 MG/DL (2.5-4.9) Magnesium Level 1.9 MG/DL (1.8-2.4) Total Bilirubin 0.2 MG/DL (0.2-1.0) Aspartate Amino Transf (AST/SGOT) 30 U/L (15-37) Alanine Aminotransferase (ALT/SGPT) 20 U/L (12-78) Alkaline Phosphatase 63 U/L (46-116) C-Reactive Protein, Quantitative 13.0 mg/dL (0.00-0.90) H Pro-B-Type Natriuretic Peptide 55 pg/mL (0-125) Total Protein 6.8 G/DL (6.4-8.2) Albumin 1.4 G/DL (3.4-5.0) L Globulin 5.4 g/dL Albumin/Globulin Ratio 0.3 (1.0-2.7) L Plan Problems: (1) Cardiac arrest (2) DKA (diabetic ketoacidoses) (3) Respiratory distress (4) Altered mental status (5) Coffee ground emesis Assessment & Plan: Coffee-ground emesis concerning for GI bleed. Transfuse PRBC now stable. No acute active bleeding noted. Discussed with GI. Will follow with recommendations hold on acute surgical intervention MBSS with 2L nasal cannula. RR appears slightly elevated. Patient given PO trials barium liquids in various consistencies. INITIAL RESULTS: Patient presenting with moderate to moderately severe oropharyngeal dysphagia. Initial review of images reveals the following: -Thin Liquids: Radiographic evidence of penetration and trace aspiration. -[place] Thick: Radiographic evidence of penetration and trace aspiration. -Honey Thick: Radiographic evidence of penetration and suspected aspiration ( view limited by Patient positioning). TRIAL TX: Attempted the following compensatory strategies: Double swallow, chin tuck, effortful swallow, and throat clear/re-swallow; No change in swallowing function/safety. Trials were ceased as Patient was presenting with increasingly wet vocal quality , ongoing coughing which appears wet, RR continued to appear high, and recurrent penetration and trace aspiration. At this time, MD to consider alternative method for chcf nutrition/ hydration and medication management as Patient's swallow continues to be inefficient and Patient presents with radiographic evidence of penetration and/ or aspiration across all consistencies. (6) High serum creatine (7) High blood urea nitrogen (BUN) (8) Abnormal TSH (9) DEANDRA (acute kidney injury) (10) Hypotension (11) Electrolyte imbalance (12) Hyperkalemia (13) Deep tissue injury Assessment & Plan: Patient identified to have a sacral deep tissue injury. No areas of open skin. No signs of acute active infection. Patient critically ill intensive care unit on support slowly making a recovery. Will make all times prevention as well as initiate care plan for healing. Turn every 2 hours. Skin protectant OPTi foam dressing. Offload heels with pillows. Will monitor closely. Great nursing care being provided. Nutritional optimization DAILY ESTIMATED NEEDS: Needs based on DM, pulmonary 65.5kg 25-30 kcals/kg 0546-3837 total kcals 1-1.5 g protein/kg 66-98 g total protein 25-30 mL/kg 4856-3385 total fluid mLs NUTRITION DIAGNOSIS: Swallowing difficulty r/t Cardiopulmonary arrest as evidenced by pt now orally intubated, ICU, adm w/ DKA, now on pressor support x3- now s/p extubation, pending MARINE PAINTER eval. CURRENT TF: NPO PO DIET RECOMMENDATIONS: [facility] MED DIET/ TEXTURE PER MARINE PAINTER ADDITIONAL RECOMMENDATIONS: 1) Diet recs as above, MARINE PAINTER eval pending 2) Maintain calibrated bed scale wts 3) Replete lytes as needed 4) Add Glucerna w/ poor po intake Enrrique Martins December 24, 2019 15:41
[2019-12-24 16:00] VITALS: BP 110/69
[2019-12-24] MEDS: Acetaminophen 650mg/20.3ml GT PRN (17:48)
[2019-12-24] MEDS: D5 1/2NS w/KCl 40meq 1000ml 1,000 ML IV SCH (18:31)
--- NOTE | 2019-12-24 19:30 | Progress Note ---
DATE: 12/24/2019 SUBJECTIVE: This is an elderly female, currently in bed and looks comfortable. OBJECTIVE: VITAL SIGNS: Blood pressure is stable. CHEST: Bilaterally clear. CARDIOVASCULAR: Regular rhythm. ABDOMEN: Soft. EXTREMITIES: CCE. NEUROLOGICAL: Generalized weakness. LABORATORY DATA: Hemoglobin 8.0, hematocrit 23 , white counts are normal. BUN 8, creatinine 0.7. ASSESSMENT: 1. Acute cardiopulmonary arrest. 2. DKA. 3. Hypertension. PLAN: Continue current treatment. Waiting for swallow eval. Frank Pinzon M.D. DR: SUDHAKAR JOB#: [id number] CC:
--- NOTE | 2019-12-24 19:53 | Diagnostic Imaging Report ---
Indications: Dysphagia Technique: Patient ingested multiple substances under the supervision of speech pathology. Video fluoroscopic recording performed. Total fluoroscopy time 127 seconds. Total dose area product 0.52288 mGycm2 Total number of images-7 Comparison: none Findings: Ingestion of thin liquid barium demonstrates laryngeal penetration from a spoon and aspiration with ingested through a straw. [place] thick liquid barium demonstrates laryngeal penetration, as does ingestion of honey thick liquid barium. Impression: Penetration of multiple substances, with aspiration of thin liquid barium
[2019-12-24 20:00] VITALS: BP 97/53
[2019-12-24] MEDS: Iron Sucrose 100 MG in NS 55 ML IV SCH (21:19)
[2019-12-24] MEDS: Dyna-Hex 2% Top Sol 2oz TOPIC SCH (21:25)
[2019-12-25] VITALS: BP 99/51
[2019-12-25 04:00] VITALS: BP 101/54
[2019-12-25] MEDS: NovoLOG Insulin Flexpen SUBQ SCH ×3 (06:34→18:27)
--- NOTE | 2019-12-25 07:55 | General Progress Note ---
Assessment/Plan Problem List: (1) Coffee ground emesis ICD Codes: K92.0 - Hematemesis SNOMED: 48708386 (2) High blood urea nitrogen (BUN) ICD Codes: R79.9 - Abnormal finding of blood chemistry, unspecified SNOMED: 687234546, 715497334 (3) High serum creatine ICD Codes: R79.89 - Other specified abnormal findings of blood chemistry SNOMED: 387901843, 939608589 (4) DKA (diabetic ketoacidoses) ICD Codes: E11.10 - Type 2 diabetes mellitus with ketoacidosis without coma SNOMED: 162425220, 13789907 Qualifiers: Qualified Codes: E13.11 - Other specified diabetes mellitus with ketoacidosis with coma (5) Altered mental status ICD Codes: R41.82 - Altered mental status, unspecified SNOMED: 645770049, 84632173 Qualifiers: Qualified Codes: R41.82 - Altered mental status, unspecified (6) Cardiac arrest ICD Codes: I46.9 - Cardiac arrest, cause unspecified SNOMED: 379143804 (7) Respiratory distress ICD Codes: R06.03 - Acute respiratory distress SNOMED: 109459040 Assessment/Plan: s/p 2 units prbc in this admission positive stool ob x1 ppi iv BID monitor H&H transfuse to keep HGB above 7.5 patient is tachypneic on 7 lit o2 tachycardic PEG was canceled by anesthesia yesterday NGTF plan PEG when more stable Subjective ROS Limited/Unobtainable: No Allergies: Coded Allergies: No Known Allergies (Unverified , 12/11/19) Objective Last 24 Hour Vital Signs Date Time Temp Pulse Resp B/P (MAP) Pulse Ox O2 Delivery O2 Flow Rate FiO2 12/25/19 04:00 99.7 117 28 101/54 (70) 99 12/25/19 00:00 97.8 100 30 99/51 (67) 96 12/24/19 21:00 Simple Mask 8.0 12/24/19 20:00 98.1 107 26 97/53 (68) 97 12/24/19 16:00 98.3 89 24 110/69 (83) 100 12/24/19 12:00 97.8 98 27 110/63 (79) 96 12/24/19 09:00 Simple Mask 10.0 12/24/19 08:00 97.9 109 30 107/58 (74) 95 Intake and Output 12/24/19 12/25/19 19:00 07:00 Intake Total 840 ml Output Total 1200 ml 850 ml Balance -360 ml -850 ml IV Total 240 ml Tube Feeding 600 ml Output Urine Total 1200 ml 850 ml # Voids 1 # Bowel Movements 1 4 Height (Feet): 5 Height (Inches): 4.00 Weight (Pounds): 162 General Appearance: lethargic EENT: normal ENT inspection Neck: supple Cardiovascular: tachycardia Respiratory/Chest: decreased breath sounds Abdomen: soft, hypoactive bowel sounds Extremities: non-tender Maykel Stephen MD December 25, 2019 07:55
[2019-12-25 08:00] VITALS: BP 108/58
[2019-12-25] MEDS: Spironolactone 25mg tab ORAL SCH ×2 (08:53→17:33)
[2019-12-25] MEDS: Lactobacillus-GG tablet NG SCH ×3 (08:54→17:33)
[2019-12-25] MEDS: Pantoprazole Inj IVP SCH ×2 (08:54→20:37)
[2019-12-25] MEDS: Levemir Flexpen SUBQ SCH ×2 (08:57→20:41)
--- NOTE | 2019-12-25 09:16 | Pulmonology Progress Note ---
Subjective ROS Limited/Unobtainable: No Interval Events: Extubated 12/13/19; NGT in place Constitutional: Denies: fever, chills HEENT: Repors: no symptoms Respiratory: Reports: no symptoms Cardiovascular: Reports: no symptoms Gastrointestinal/Abdominal: Denies: nausea, vomiting, diarrhea Genitourinary: Reports: no symptoms Musculoskeletal: Denies: pain Allergies: Coded Allergies: No Known Allergies (Unverified , 12/11/19) All Systems: reviewed and negative except above Objective Last 24 Hour Vital Signs Date Time Temp Pulse Resp B/P (MAP) Pulse Ox O2 Delivery O2 Flow Rate FiO2 12/25/19 09:00 Simple Mask 8.0 12/25/19 08:00 98.9 107 24 108/58 (75) 100 12/25/19 04:00 99.7 117 28 101/54 (70) 99 12/25/19 00:00 97.8 100 30 99/51 (67) 96 12/24/19 21:00 Simple Mask 8.0 12/24/19 20:00 98.1 107 26 97/53 (68) 97 12/24/19 16:00 98.3 89 24 110/69 (83) 100 12/24/19 12:00 97.8 98 27 110/63 (79) 96 Intake and Output 12/24/19 12/25/19 18:59 06:59 Intake Total 880 ml Output Total 1200 ml 850 ml Balance -320 ml -850 ml IV Total 280 ml Tube Feeding 600 ml Output Urine Total 1200 ml 850 ml # Voids 1 # Bowel Movements 1 4 General Appearance: no acute distress HEENT: normocephalic Respiratory: chest wall non-tender, lungs clear Cardiovascular: normal peripheral pulses, normal rate Abdomen: normal bowel sounds Current Medications Medications (Trade) Dose Ordered Sig/Esequiel Route PRN Reason Start Time Stop Time Status Last Admin Dose Admin Acetaminophen (Tylenol) 650 mg Q4H PRN GT Mild Pain (Pain Scale 1-3) 12/22/19 19:00 01/10/20 18:59 12/24/19 17:48 Acetaminophen (Tylenol) 650 mg Q4H PRN RECTAL Mild Pain (Pain Scale 1-3) 12/22/19 19:00 01/10/20 18:59 Barium Sulfate (Varibar Honey) 250 ml NOW PRN MC RAD 12/23/19 11:45 12/25/19 11:37 Barium Sulfate (Varibar Secretary) 240 ml NOW PRN MC RAD 12/23/19 11:45 12/25/19 11:37 Barium Sulfate (Varibar Pudding) 230 ml NOW PRN MC RAD 12/23/19 11:45 12/25/19 11:37 Chlorhexidine Gluconate (Bijal-Hex 2%) 1 applic DAILY@2000 TOPIC 12/22/19 20:00 03/11/20 19:59 12/24/19 21:25 Dextrose (Dextrose 50%) 25 ml Q30M PRN IV Hypoglycemia 12/22/19 19:00 03/12/20 01:59 Dextrose (Dextrose 50%) 50 ml Q30M PRN IV Hypoglycemia 12/22/19 19:00 03/12/20 01:59 Dextrose/ Electrolytes 1,000 ml @ 40 mls/hr Q24H IV 12/22/19 19:00 01/21/20 16:07 12/24/19 18:31 Insulin Aspart (NovoLOG) Q6HR SUBQ 12/23/19 00:00 03/12/20 04:59 12/25/19 06:34 Insulin Detemir (Levemir) 20 units Q12HR SUBQ 12/23/19 21:00 03/20/20 08:59 12/25/19 08:57 Lactobacillus Acidophilus (Culturelle) 1 tab THREE TIMES A DAY NG 12/23/19 09:00 03/18/20 12:59 12/25/19 08:54 Loperamide HCl (Imodium) 2 mg Q4H PRN ORAL Diarrhea 12/22/19 19:00 01/21/20 18:59 Ondansetron HCl (Zofran) 4 mg Q6H PRN IVP Nausea & Vomiting 12/22/19 19:00 01/10/20 18:59 Pantoprazole (Protonix) 40 mg EVERY 12 HOURS IVP 12/22/19 21:00 01/11/20 08:59 12/25/19 08:54 Potassium Chloride (K-Dur) 40 meq BID ORAL 12/23/19 09:00 03/17/20 08:59 12/25/19 08:54 Spironolactone (Aldactone) 25 mg BID ORAL 12/23/19 09:00 01/17/20 10:59 12/25/19 08:53 Assessment/Plan Assessment/Plan IMPRESSION: 1. DKA. Resolved 2. Upper GI bleed. 3. Respiratory failure. Now extubated 4. Lactic acidosis. DISCUSSION: Continue antibiotics I will continue oxygen, Protonix, DVT prophylaxis. Saturating 100% on 2L/min O2 S/P PEG Osorio Harris Omar Syed MD December 25, 2019 09:16
[2019-12-25 12:00] VITALS: BP 116/64
--- NOTE | 2019-12-25 12:37 | Nephrology Progress Note ---
Assessment/Plan Problem List: (1) DEANDRA (acute kidney injury) Assessment: Resolved (2) Hypotension (3) Cardiac arrest (4) DKA (diabetic ketoacidoses) (5) Respiratory distress (6) Coffee ground emesis (7) Electrolyte imbalance Assessment Acute renal failure which probably is superimposed on chronic kidney disease History of diabetes mellitus, most likely diabetic nephropathy. Presents with diabetic ketoacidosis Acute respiratory failure requiring intubation and mechanical ventilation Aspiration pneumonia, upper GI bleed Proteinuria and severe hypoalbuminemia should rule out nephrotic range proteinuria Anemia Electrolyte imbalances Plan Patient due for PEG when cleared by anesthesia Meanwhile continue NG tube feeding Electrolytes seems to be reasonably corrected Previously: Off Reglan as the patient has diarrhea C. difficile negative Patient is doing well post extubation Will replace potassium, magnesium, and phosphorus as needed Previously 2 units of packed RBCs was transfused Hydrate as needed and monitor electrolytes Per orders Previously Monitor renal parameters Avoid nephrotoxic's Anemia work-up Urine studies Keep blood sugar and blood pressure in check Per consultants Discussed with RN Subjective ROS Limited/Unobtainable: No Constitutional: Reports: malaise, weakness Objective Objective Last 24 Hour Vital Signs Date Time Temp Pulse Resp B/P (MAP) Pulse Ox O2 Delivery O2 Flow Rate FiO2 12/25/19 09:00 Simple Mask 8.0 12/25/19 08:00 98.9 107 24 108/58 (75) 100 12/25/19 04:00 99.7 117 28 101/54 (70) 99 12/25/19 00:00 97.8 100 30 99/51 (67) 96 12/24/19 21:00 Simple Mask 8.0 12/24/19 20:00 98.1 107 26 97/53 (68) 97 12/24/19 16:00 98.3 89 24 110/69 (83) 100 Intake and Output 12/24/19 12/25/19 19:00 07:00 Intake Total 840 ml Output Total 1200 ml 850 ml Balance -360 ml -850 ml IV Total 240 ml Tube Feeding 600 ml Output Urine Total 1200 ml 850 ml # Voids 1 # Bowel Movements 1 4 No labs drawn today Height (Feet): 5 Height (Inches): 4.00 Weight (Pounds): 162 General Appearance: no apparent distress Cardiovascular: tachycardia Respiratory/Chest: decreased breath sounds Abdomen: soft Don Ventura MD December 25, 2019 12:37
--- NOTE | 2019-12-25 13:47 | Surgery Progress Note ---
Surgery Progress Note Subjective Additional Comments no acute events comfortable tolerating tf Objective Last 24 Hour Vital Signs Date Time Temp Pulse Resp B/P (MAP) Pulse Ox O2 Delivery O2 Flow Rate FiO2 12/25/19 12:00 98.8 100 22 116/64 (81) 99 12/25/19 09:00 Simple Mask 8.0 12/25/19 08:00 98.9 107 24 108/58 (75) 100 12/25/19 04:00 99.7 117 28 101/54 (70) 99 12/25/19 00:00 97.8 100 30 99/51 (67) 96 12/24/19 21:00 Simple Mask 8.0 12/24/19 20:00 98.1 107 26 97/53 (68) 97 12/24/19 16:00 98.3 89 24 110/69 (83) 100 I&O Intake and Output 12/24/19 12/25/19 19:00 07:00 Intake Total 840 ml Output Total 1200 ml 850 ml Balance -360 ml -850 ml IV Total 240 ml Tube Feeding 600 ml Output Urine Total 1200 ml 850 ml # Voids 1 # Bowel Movements 1 4 Dressing: other Wound: other Drains: other Cardiovascular: RSR Respiratory: decreased breath sounds Abdomen: soft, non-tender, present bowel sounds Extremities: no cyanosis Plan Problems: (1) Cardiac arrest (2) DKA (diabetic ketoacidoses) (3) Respiratory distress (4) Altered mental status (5) Coffee ground emesis Assessment & Plan: Coffee-ground emesis concerning for GI bleed. Transfuse PRBC now stable. No acute active bleeding noted. Discussed with GI. Will follow with recommendations hold on acute surgical intervention MBSS with 2L nasal cannula. RR appears slightly elevated. Patient given PO trials barium liquids in various consistencies. INITIAL RESULTS: Patient presenting with moderate to moderately severe oropharyngeal dysphagia. Initial review of images reveals the following: -Thin Liquids: Radiographic evidence of penetration and trace aspiration. -[place] Thick: Radiographic evidence of penetration and trace aspiration. -Honey Thick: Radiographic evidence of penetration and suspected aspiration ( view limited by Patient positioning). TRIAL TX: Attempted the following compensatory strategies: Double swallow, chin tuck, effortful swallow, and throat clear/re-swallow; No change in swallowing function/safety. Trials were ceased as Patient was presenting with increasingly wet vocal quality , ongoing coughing which appears wet, RR continued to appear high, and recurrent penetration and trace aspiration. At this time, MD to consider alternative method for long goods drier nutrition/ hydration and medication management as Patient's swallow continues to be inefficient and Patient presents with radiographic evidence of penetration and/ or aspiration across all consistencies. (6) High serum creatine (7) High blood urea nitrogen (BUN) (8) Abnormal TSH (9) DEANDRA (acute kidney injury) (10) Hypotension (11) Electrolyte imbalance (12) Hyperkalemia (13) Deep tissue injury Assessment & Plan: Patient identified to have a sacral deep tissue injury. No areas of open skin. No signs of acute active infection. Patient critically ill intensive care unit on support slowly making a recovery. Will make all times prevention as well as initiate care plan for healing. Turn every 2 hours. Skin protectant OPTi foam dressing. Offload heels with pillows. Will monitor closely. Great nursing care being provided. Nutritional optimization DAILY ESTIMATED NEEDS: Needs based on DM, pulmonary 65.5kg 25-30 kcals/kg 8773-9100 total kcals 1-1.5 g protein/kg 66-98 g total protein 25-30 mL/kg 2728-4358 total fluid mLs NUTRITION DIAGNOSIS: Swallowing difficulty r/t Cardiopulmonary arrest as evidenced by pt now orally intubated, ICU, adm w/ DKA, now on pressor support x3- now s/p extubation, pending TRANSACTION COORDINATOR eval. CURRENT TF: NPO PO DIET RECOMMENDATIONS: [facility] DIET/ TEXTURE PER TRANSACTION COORDINATOR ADDITIONAL RECOMMENDATIONS: 1) Diet recs as above, TRANSACTION COORDINATOR eval pending 2) Maintain calibrated bed scale wts 3) Replete lytes as needed 4) Add Glucerna w/ poor po intake Enrrique Martins December 25, 2019 13:47
[2019-12-25 16:00] VITALS: BP 126/71
[2019-12-25] MEDS ORDERED: NS 275ml ONE (17:30)
[2019-12-25] MEDS ORDERED: Tubing IV Secondary IV ONE (17:30)
[2019-12-25] MEDS: Acetaminophen 650mg/20.3ml GT PRN (18:00)
[2019-12-25] MEDS: D5 1/2NS w/KCl 40meq 1000ml 1,000 ML IV SCH (18:31)
[2019-12-25 20:00] VITALS: BP 101/56
[2019-12-25] MEDS: Dyna-Hex 2% Top Sol 2oz TOPIC SCH (20:37)
--- NOTE | 2019-12-25 21:15 | Progress Note ---
DATE: 12/25/2019 SUBJECTIVE: This is a 58-year-old female who came to the emergency room for DKA, acute respiratory failure, and cardiopulmonary arrest. The patient is currently doing better. She has failed swallow evaluation. Her breathing is improving. The patient is COVID negative. PHYSICAL EXAMINATION: VITAL SIGNS: Blood pressure is 130/70, pulse 74, respirations 18 to 24, temperature no fever. SKIN: Good skin turgor. HEENT: . EOMI. PERRLA. NECK: Supple. No JVD. CHEST: Bilaterally few crackles. CARDIOVASCULAR: Regular rhythm. No gallop. No murmur. ABDOMEN: Soft. Positive bowel sounds. Nontender. EXTREMITIES: No edema. GENITOURINARY: Deferred. LABORATORY AND DIAGNOSTIC DATA: White counts are coming down. ASSESSMENT: 1. Sepsis is improving. 2. Dysphagia. 3. Aspiration pneumonia. 4. History of cardiopulmonary arrest, resolved. 5. Diabetes. 6. Encephalopathy. 7. Dysphagia. PLAN: Currently continue current treatment. The patient is feeding. Continue medical treatment. Continue antibiotics and bronchodilator treatments. Frank Pinzon M.D. DR: Alanis JOB#: [id number] CC:
[2019-12-26] VITALS: BP 116/84
[2019-12-26] MEDS: NovoLOG Insulin Flexpen SUBQ SCH ×4 (00:03→17:38)
[2019-12-26 04:00] VITALS: BP 106/60
--- NOTE | 2019-12-26 06:51 | General Progress Note ---
Assessment/Plan Problem List: (1) Coffee ground emesis ICD Codes: K92.0 - Hematemesis SNOMED: 51074280 (2) High blood urea nitrogen (BUN) ICD Codes: R79.9 - Abnormal finding of blood chemistry, unspecified SNOMED: 356245154, 319250274 (3) High serum creatine ICD Codes: R79.89 - Other specified abnormal findings of blood chemistry SNOMED: 789970936, 212548455 (4) DKA (diabetic ketoacidoses) ICD Codes: E11.10 - Type 2 diabetes mellitus with ketoacidosis without coma SNOMED: 229314490, 82467424 Qualifiers: Qualified Codes: E13.11 - Other specified diabetes mellitus with ketoacidosis with coma (5) Altered mental status ICD Codes: R41.82 - Altered mental status, unspecified SNOMED: 930468765, 11751109 Qualifiers: Qualified Codes: R41.82 - Altered mental status, unspecified (6) Cardiac arrest ICD Codes: I46.9 - Cardiac arrest, cause unspecified SNOMED: 333319423 (7) Respiratory distress ICD Codes: R06.03 - Acute respiratory distress SNOMED: 329276939 Assessment/Plan: s/p 2 units prbc in this admission positive stool ob x1 ppi iv BID monitor H&H transfuse to keep HGB above 7.5 patient is tachypneic on 7 lit o2 tachycardic PEG was canceled by anesthesia yesterday patient pulled her NGT ordered repeat swallow eval for Friday Subjective ROS Limited/Unobtainable: No Allergies: Coded Allergies: No Known Allergies (Unverified , 12/11/19) Objective Last 24 Hour Vital Signs Date Time Temp Pulse Resp B/P (MAP) Pulse Ox O2 Delivery O2 Flow Rate FiO2 12/26/19 04:00 98.9 113 22 106/60 (75) 95 12/26/19 00:00 98.8 124 20 116/84 (95) 96 12/25/19 20:00 99.3 118 20 101/56 (71) 97 12/25/19 19:38 96 Nasal Cannula 2.0 28 12/25/19 19:28 Simple Mask 8.0 12/25/19 16:00 98.7 103 21 126/71 (89) 99 12/25/19 12:00 98.8 100 22 116/64 (81) 99 12/25/19 09:00 Simple Mask 8.0 12/25/19 08:00 98.9 107 24 108/58 (75) 100 Intake and Output 12/25/19 12/26/19 19:00 07:00 Intake Total 1200 ml Output Total 1500 ml 500 ml Balance -300 ml -500 ml IV Total 480 ml Tube Feeding 720 ml Output Urine Total 1500 ml 500 ml # Voids 2 # Bowel Movements 2 2 Height (Feet): 5 Height (Inches): 4.00 Weight (Pounds): 162 General Appearance: no apparent distress EENT: normal ENT inspection Neck: supple Cardiovascular: tachycardia Respiratory/Chest: decreased breath sounds Abdomen: normal bowel sounds, non tender, soft Maykel Stephen MD December 26, 2019 06:51
--- NOTE | 2019-12-26 07:26 | Cardiac Electrophysiology PN ---
Assessment/Plan Assessment/Plan 1. S/P Septic shock. Off pressors. EF 60%. EKG shows sinus tachycardia with no acute ST-T wave abnormalities. 2. S/P Respiratory failure, Extubated. On Face Mask 3. Hypotension. Resolved 4. Coffee-ground emesis. S/P 2 units of PRBC 5. S/P Diabetic ketoacidosis 6. Persistent hypokalemia. Improved on aldactone 25 bid and KCL po by Dr Ventura 7. Failed swallow eval. NG tube. PEG rescheduled for Friday by Dr. Zafar HINOJOSA RN Subjective Subjective 1st covid negative on 12/13. Second Covid negative 12/18. Off isolation.Pulled out NGT PEG rescheduled for Friday . Confused on face mask. Objective Last 24 Hour Vital Signs Date Time Temp Pulse Resp B/P (MAP) Pulse Ox O2 Delivery O2 Flow Rate FiO2 12/26/19 04:00 98.9 113 22 106/60 (75) 95 12/26/19 00:00 98.8 124 20 116/84 (95) 96 12/25/19 20:00 99.3 118 20 101/56 (71) 97 12/25/19 19:38 96 Nasal Cannula 2.0 28 12/25/19 19:28 Simple Mask 8.0 12/25/19 16:00 98.7 103 21 126/71 (89) 99 12/25/19 12:00 98.8 100 22 116/64 (81) 99 12/25/19 09:00 Simple Mask 8.0 12/25/19 08:00 98.9 107 24 108/58 (75) 100 Intake and Output 12/25/19 12/26/19 19:00 07:00 Intake Total 1200 ml Output Total 1500 ml 500 ml Balance -300 ml -500 ml IV Total 480 ml Tube Feeding 720 ml Output Urine Total 1500 ml 500 ml # Voids 2 # Bowel Movements 2 2 Objective HEAD AND NECK: No JVD. NGT feeding LUNGS: Coarse rhonchi. CARDIOVASCULAR: Irregular S1-S2 and tachycardic. ABDOMEN: Soft. EXTREMITIES: No pitting edema. Gerardo Dyer MD December 26, 2019 07:26
--- NOTE | 2019-12-26 07:42 | Pulmonology Progress Note ---
Subjective ROS Limited/Unobtainable: No Interval Events: Extubated 12/13/19; NGT in place Constitutional: Denies: fever, chills HEENT: Repors: no symptoms Respiratory: Reports: no symptoms Cardiovascular: Reports: no symptoms Gastrointestinal/Abdominal: Denies: nausea, vomiting, diarrhea Genitourinary: Reports: no symptoms Musculoskeletal: Denies: pain Allergies: Coded Allergies: No Known Allergies (Unverified , 12/11/19) All Systems: reviewed and negative except above Objective Last 24 Hour Vital Signs Date Time Temp Pulse Resp B/P (MAP) Pulse Ox O2 Delivery O2 Flow Rate FiO2 12/26/19 04:00 98.9 113 22 106/60 (75) 95 12/26/19 00:00 98.8 124 20 116/84 (95) 96 12/25/19 20:00 99.3 118 20 101/56 (71) 97 12/25/19 19:38 96 Nasal Cannula 2.0 28 12/25/19 19:28 Simple Mask 8.0 12/25/19 16:00 98.7 103 21 126/71 (89) 99 12/25/19 12:00 98.8 100 22 116/64 (81) 99 12/25/19 09:00 Simple Mask 8.0 12/25/19 08:00 98.9 107 24 108/58 (75) 100 Intake and Output 12/25/19 12/26/19 18:59 06:59 Intake Total 1200 ml 100 ml Output Total 1500 ml 500 ml Balance -300 ml -400 ml IV Total 480 ml 40 ml Tube Feeding 720 ml 60 ml Output Urine Total 1500 ml 500 ml # Voids 2 # Bowel Movements 2 2 General Appearance: no acute distress HEENT: normocephalic Respiratory: chest wall non-tender, lungs clear Cardiovascular: normal peripheral pulses, normal rate Abdomen: normal bowel sounds Current Medications Medications (Trade) Dose Ordered Sig/Esequiel Route PRN Reason Start Time Stop Time Status Last Admin Dose Admin Acetaminophen (Tylenol) 650 mg Q4H PRN GT Mild Pain (Pain Scale 1-3) 12/22/19 19:00 01/10/20 18:59 12/25/19 18:00 Acetaminophen (Tylenol) 650 mg Q4H PRN RECTAL Mild Pain (Pain Scale 1-3) 12/22/19 19:00 01/10/20 18:59 Chlorhexidine Gluconate (Bijal-Hex 2%) 1 applic DAILY@2000 TOPIC 12/22/19 20:00 03/11/20 19:59 12/25/19 20:37 Dextrose (Dextrose 50%) 25 ml Q30M PRN IV Hypoglycemia 12/22/19 19:00 03/12/20 01:59 Dextrose (Dextrose 50%) 50 ml Q30M PRN IV Hypoglycemia 12/22/19 19:00 03/12/20 01:59 Dextrose/ Electrolytes 1,000 ml @ 40 mls/hr Q24H IV 12/22/19 19:00 01/21/20 16:07 12/25/19 18:31 Insulin Aspart (NovoLOG) Q6HR SUBQ 12/23/19 00:00 03/12/20 04:59 12/26/19 06:09 Insulin Detemir (Levemir) 20 units Q12HR SUBQ 12/23/19 21:00 03/20/20 08:59 12/25/19 20:41 Lactobacillus Acidophilus (Culturelle) 1 tab THREE TIMES A DAY NG 12/23/19 09:00 03/18/20 12:59 12/25/19 17:33 Loperamide HCl (Imodium) 2 mg Q4H PRN ORAL Diarrhea 12/22/19 19:00 01/21/20 18:59 Ondansetron HCl (Zofran) 4 mg Q6H PRN IVP Nausea & Vomiting 12/22/19 19:00 01/10/20 18:59 Pantoprazole (Protonix) 40 mg EVERY 12 HOURS IVP 12/22/19 21:00 01/11/20 08:59 12/25/19 20:37 Potassium Chloride (K-Dur) 40 meq BID ORAL 12/23/19 09:00 03/17/20 08:59 12/25/19 17:33 Spironolactone (Aldactone) 25 mg BID ORAL 12/23/19 09:00 01/17/20 10:59 12/25/19 17:33 Assessment/Plan Assessment/Plan IMPRESSION: 1. DKA. Resolved 2. Upper GI bleed. 3. Respiratory failure. Now extubated 4. Lactic acidosis. DISCUSSION: Continue antibiotics I will continue oxygen, Protonix, DVT prophylaxis. Saturating 100% on 2L/min O2 S/P PEG Osorio Harris Omar Syed MD December 26, 2019 07:42
[2019-12-26 08:00] VITALS: BP 120/70
[2019-12-26 08:32] LABS: HEMATOCRIT 25.6 % (37.0-47.0); HEMOGLOBIN 8.6 G/DL (12.0-16.0); MEAN CORPUSCULAR VOLUME 89 FL (80-99); PLATELET COUNT 554 K/UL (150-450); RED BLOOD COUNT 2.87 M/UL (4.20-5.40); RED CELL DISTRIBUTION WIDTH 12.9 % (11.6-14.8); WHITE BLOOD COUNT 12.5 K/UL (4.8-10.8)
[2019-12-26] MEDS: Spironolactone 25mg tab ORAL SCH ×2 (09:00→17:38)
[2019-12-26] MEDS: Lactobacillus-GG tablet NG SCH ×3 (09:00→17:38)
[2019-12-26 09:06] LABS: ANION GAP 4 mmol/L (5-15); BLOOD UREA NITROGEN 21 mg/dL (7-18); CALCIUM 9.6 MG/DL (8.5-10.1); CARBON DIOXIDE 34 MMOL/L (21-32); CHLORIDE 102 MMOL/L (98-107); CREATININE 0.8 MG/DL (0.55-1.30); POTASSIUM 4.9 MMOL/L (3.5-5.1); SODIUM 140 MMOL/L (136-145)
[2019-12-26] MEDS: Pantoprazole Inj IVP SCH ×2 (09:17→20:23)
[2019-12-26 09:21] LABS: ALANINE AMINOTRANSFERASE 31 U/L (12-78); ALBUMIN 1.6 G/DL (3.4-5.0); ALKALINE PHOSPHATASE 89 U/L (46-116); ASPARTATE AMINO TRANSFERASE 38 U/L (15-37); BILIRUBIN,DIRECT < 0.1 MG/DL (0.0-0.3); BILIRUBIN,TOTAL 0.1 MG/DL (0.2-1.0); PHOSPHORUS 4.3 MG/DL (2.5-4.9)
[2019-12-26] MEDS: Levemir Flexpen SUBQ SCH ×2 (09:26→20:25)
--- NOTE | 2019-12-26 09:51 | Nephrology Progress Note ---
Assessment/Plan Problem List: (1) DEANDRA (acute kidney injury) Assessment: Resolved (2) Hypotension (3) Cardiac arrest (4) DKA (diabetic ketoacidoses) (5) Respiratory distress (6) Coffee ground emesis (7) Electrolyte imbalance Assessment Acute renal failure which probably is superimposed on chronic kidney disease History of diabetes mellitus, most likely diabetic nephropathy. Presents with diabetic ketoacidosis Acute respiratory failure requiring intubation and mechanical ventilation Aspiration pneumonia, upper GI bleed Proteinuria and severe hypoalbuminemia should rule out nephrotic range proteinuria Anemia Electrolyte imbalances Plan Patient due for PEG when cleared by anesthesia Meanwhile continue NG tube feeding Electrolytes seems to be reasonably corrected Previously: Off Reglan as the patient has diarrhea C. difficile negative Patient is doing well post extubation Will replace potassium, magnesium, and phosphorus as needed Previously 2 units of packed RBCs was transfused Hydrate as needed and monitor electrolytes Per orders Previously Monitor renal parameters Avoid nephrotoxic's Anemia work-up Urine studies Keep blood sugar and blood pressure in check Per consultants Discussed with RN Subjective ROS Limited/Unobtainable: No Constitutional: Reports: malaise, weakness Objective Objective Last 24 Hour Vital Signs Date Time Temp Pulse Resp B/P (MAP) Pulse Ox O2 Delivery O2 Flow Rate FiO2 12/26/19 08:00 97.5 109 24 120/70 (87) 99 12/26/19 04:00 98.9 113 22 106/60 (75) 95 12/26/19 00:00 98.8 124 20 116/84 (95) 96 12/25/19 20:00 99.3 118 20 101/56 (71) 97 12/25/19 19:38 96 Nasal Cannula 2.0 28 12/25/19 19:28 Simple Mask 8.0 12/25/19 16:00 98.7 103 21 126/71 (89) 99 12/25/19 12:00 98.8 100 22 116/64 (81) 99 Intake and Output 12/25/19 12/26/19 19:00 07:00 Intake Total 1200 ml Output Total 1500 ml 500 ml Balance -300 ml -500 ml IV Total 480 ml Tube Feeding 720 ml Output Urine Total 1500 ml 500 ml # Voids 2 # Bowel Movements 2 2 Laboratory Tests 12/26/19 06:16: White Blood Count 12.5H, Red Blood Count 2.87L, Hemoglobin 8.6L, Hematocrit 25.6L, Mean Corpuscular Volume 89, Mean Corpuscular Hemoglobin 30.1, Mean Corpuscular Hemoglobin Concent 33.7, Red Cell Distribution Width 12.9, Platelet Count 554H, Mean Platelet Volume 5.3L, Neutrophils (%) (Auto) , Lymphocytes (%) (Auto) , Monocytes (%) (Auto) , Eosinophils (%) (Auto) , Basophils (%) (Auto) , Neutrophils % (Manual) [Pending], Lymphocytes % (Manual) [Pending], Platelet Estimate [Pending], Platelet Morphology [Pending], Sodium Level 140, Potassium Level 4.9, Chloride Level 102, Carbon Dioxide Level 34H, Anion Gap 4L, Blood Urea Nitrogen 21H, Creatinine 0.8, Estimat Glomerular Filtration Rate > 60, Glucose Level 196H, Calcium Level 9.6, Phosphorus Level 4.3, Magnesium Level 2.1 , Total Bilirubin 0.1L, Direct Bilirubin < 0.1, Aspartate Amino Transf (AST/SGOT ) 38H, Alanine Aminotransferase (ALT/SGPT) 31, Alkaline Phosphatase 89, Total Protein 7.0, Albumin 1.6L Height (Feet): 5 Height (Inches): 4.00 Weight (Pounds): 162 General Appearance: no apparent distress, lethargic Cardiovascular: tachycardia Respiratory/Chest: decreased breath sounds Abdomen: soft Don Ventura MD December 26, 2019 09:51
[2019-12-26 12:02] VITALS: BP 110/70
--- NOTE | 2019-12-26 12:38 | Surgery Progress Note ---
Surgery Progress Note Subjective Additional Comments Patient pulled NG tube. Comfortable appearing. Plan for repeat swallow. Labs noted. No nausea vomiting fever chills Objective Last 24 Hour Vital Signs Date Time Temp Pulse Resp B/P (MAP) Pulse Ox O2 Delivery O2 Flow Rate FiO2 12/26/19 12:02 98.4 107 20 110/70 (83) 99 12/26/19 09:00 Nasal Cannula 5.0 12/26/19 08:00 97.5 109 24 120/70 (87) 99 12/26/19 04:00 98.9 113 22 106/60 (75) 95 12/26/19 00:00 98.8 124 20 116/84 (95) 96 12/25/19 20:00 99.3 118 20 101/56 (71) 97 12/25/19 19:38 96 Nasal Cannula 2.0 28 12/25/19 19:28 Simple Mask 8.0 12/25/19 16:00 98.7 103 21 126/71 (89) 99 I&O Intake and Output 12/25/19 12/26/19 19:00 07:00 Intake Total 1200 ml Output Total 1500 ml 500 ml Balance -300 ml -500 ml IV Total 480 ml Tube Feeding 720 ml Output Urine Total 1500 ml 500 ml # Voids 2 # Bowel Movements 2 2 Dressing: other Wound: other Drains: other Cardiovascular: RSR Respiratory: decreased breath sounds Abdomen: soft, non-tender, present bowel sounds Extremities: no cyanosis Laboratory Tests Test 12/26/19 06:16 White Blood Count 12.5 K/UL (4.8-10.8) H Red Blood Count 2.87 M/UL (4.20-5.40) L Hemoglobin 8.6 G/DL (12.0-16.0) L Hematocrit 25.6 % (37.0-47.0) L Mean Corpuscular Volume 89 FL (80-99) Mean Corpuscular Hemoglobin 30.1 PG (27.0-31.0) Mean Corpuscular Hemoglobin Concent 33.7 G/DL (32.0-36.0) Red Cell Distribution Width 12.9 % (11.6-14.8) Platelet Count 554 K/UL (150-450) H Mean Platelet Volume 5.3 FL (6.5-10.1) L Neutrophils (%) (Auto) % (45.0-75.0) Lymphocytes (%) (Auto) % (20.0-45.0) Monocytes (%) (Auto) % (1.0-10.0) Eosinophils (%) (Auto) % (0.0-3.0) Basophils (%) (Auto) % (0.0-2.0) Differential Total Cells Counted 100 Neutrophils % (Manual) 69 % (45-75) Lymphocytes % (Manual) 21 % (20-45) Monocytes % (Manual) 9 % (1-10) Eosinophils % (Manual) 1 % (0-3) Basophils % (Manual) 0 % (0-2) Band Neutrophils 0 % (0-8) Platelet Estimate Increased H Platelet Morphology Normal Polychromasia 1+ Hypochromasia 1+ Sodium Level 140 MMOL/L (136-145) Potassium Level 4.9 MMOL/L (3.5-5.1) Chloride Level 102 MMOL/L (98-107) Carbon Dioxide Level 34 MMOL/L (21-32) H Anion Gap 4 mmol/L (5-15) L Blood Urea Nitrogen 21 mg/dL (7-18) H Creatinine 0.8 MG/DL (0.55-1.30) Estimat Glomerular Filtration Rate > 60 mL/min (>60) Glucose Level 196 MG/DL (74-106) H Calcium Level 9.6 MG/DL (8.5-10.1) Phosphorus Level 4.3 MG/DL (2.5-4.9) Magnesium Level 2.1 MG/DL (1.8-2.4) Total Bilirubin 0.1 MG/DL (0.2-1.0) L Direct Bilirubin < 0.1 MG/DL (0.0-0.3) Aspartate Amino Transf (AST/SGOT) 38 U/L (15-37) H Alanine Aminotransferase (ALT/SGPT) 31 U/L (12-78) Alkaline Phosphatase 89 U/L (46-116) Total Protein 7.0 G/DL (6.4-8.2) Albumin 1.6 G/DL (3.4-5.0) L Plan Problems: (1) Cardiac arrest (2) DKA (diabetic ketoacidoses) (3) Respiratory distress (4) Altered mental status (5) Coffee ground emesis Assessment & Plan: Coffee-ground emesis concerning for GI bleed. Transfuse PRBC now stable. No acute active bleeding noted. Discussed with GI. Will follow with recommendations hold on acute surgical intervention MBSS with 2L nasal cannula. RR appears slightly elevated. Patient given PO trials barium liquids in various consistencies. INITIAL RESULTS: Patient presenting with moderate to moderately severe oropharyngeal dysphagia. Initial review of images reveals the following: -Thin Liquids: Radiographic evidence of penetration and trace aspiration. -[place] Thick: Radiographic evidence of penetration and trace aspiration. -[place] Thick: Radiographic evidence of penetration and suspected aspiration ( view limited by Patient positioning). TRIAL TX: Attempted the following compensatory strategies: Double swallow, chin tuck, effortful swallow, and throat clear/re-swallow; No change in swallowing function/safety. Trials were ceased as Patient was presenting with increasingly wet vocal quality , ongoing coughing which appears wet, RR continued to appear high, and recurrent penetration and trace aspiration. At this time, MD to consider alternative method for intermediate nutrition/ hydration and medication management as Patient's swallow continues to be inefficient and Patient presents with radiographic evidence of penetration and/ or aspiration across all consistencies. (6) High serum creatine (7) High blood urea nitrogen (BUN) (8) Abnormal TSH (9) DEANDRA (acute kidney injury) (10) Hypotension (11) Electrolyte imbalance (12) Hyperkalemia (13) Deep tissue injury Assessment & Plan: Patient identified to have a sacral deep tissue injury. No areas of open skin. No signs of acute active infection. Patient critically ill intensive care unit on support slowly making a recovery. Will make all times prevention as well as initiate care plan for healing. Turn every 2 hours. Skin protectant OPTi foam dressing. Offload heels with pillows. Will monitor closely. Great nursing care being provided. Nutritional optimization DAILY ESTIMATED NEEDS: Needs based on DM, pulmonary 65.5kg 25-30 kcals/kg 3557-7451 total kcals 1-1.5 g protein/kg 66-98 g total protein 25-30 mL/kg 1760-9946 total fluid mLs NUTRITION DIAGNOSIS: Swallowing difficulty r/t Cardiopulmonary arrest as evidenced by pt now orally intubated, ICU, adm w/ DKA, now on pressor support x3- now s/p extubation, pending END LATHE OPERATOR eval. CURRENT TF: NPO PO DIET RECOMMENDATIONS: [facility] MED DIET/ TEXTURE PER END LATHE OPERATOR ADDITIONAL RECOMMENDATIONS: 1) Diet recs as above, END LATHE OPERATOR eval pending 2) Maintain calibrated bed scale wts 3) Replete lytes as needed 4) Add Glucerna w/ poor po intake Enrrique Martins December 26, 2019 12:38
--- NOTE | 2019-12-26 13:00 | Infectious Diseases Prog Note ---
Assessment/Plan Assessment/Plan A: 1. Diabetic ketoacidosis 2. Renal failure resolved 3. Leukocytosis resolved. 4. Pneumonia. COVID19 X 2: negative 5. Anemia 6. Hypokalemia corrected PLAN: 1. Observe off antibiotic Subjective ROS Limited/Unobtainable: No Constitutional: Reports: no symptoms Respiratory: Reports: no symptoms Gastrointestinal/Abdominal: Reports: no symptoms Genitourinary: Reports: no symptoms Allergies: Coded Allergies: No Known Allergies (Unverified , 12/11/19) Objective Vital Signs Last 24 Hour Vital Signs Date Time Temp Pulse Resp B/P (MAP) Pulse Ox O2 Delivery O2 Flow Rate FiO2 12/26/19 12:02 98.4 107 20 110/70 (83) 99 12/26/19 09:00 Nasal Cannula 5.0 12/26/19 08:00 97.5 109 24 120/70 (87) 99 12/26/19 04:00 98.9 113 22 106/60 (75) 95 12/26/19 00:00 98.8 124 20 116/84 (95) 96 12/25/19 20:00 99.3 118 20 101/56 (71) 97 12/25/19 19:38 96 Nasal Cannula 2.0 28 12/25/19 19:28 Simple Mask 8.0 12/25/19 16:00 98.7 103 21 126/71 (89) 99 Height (Feet): 5 Height (Inches): 4.00 Weight (Pounds): 162 HEENT: mucous membranes moist Respiratory/Chest: rhonchi - bilaterally, other - oxygen by nasal cannula Cardiovascular: tachycardia, other - PICC line Abdomen: soft, non tender Genitourinary: other - Andrade catheter Extremities: no edema Neurologic/Psychiatric: alert, responsive Laboratory Tests Test 12/26/19 06:16 White Blood Count 12.5 K/UL (4.8-10.8) H Red Blood Count 2.87 M/UL (4.20-5.40) L Hemoglobin 8.6 G/DL (12.0-16.0) L Hematocrit 25.6 % (37.0-47.0) L Mean Corpuscular Volume 89 FL (80-99) Mean Corpuscular Hemoglobin 30.1 PG (27.0-31.0) Mean Corpuscular Hemoglobin Concent 33.7 G/DL (32.0-36.0) Red Cell Distribution Width 12.9 % (11.6-14.8) Platelet Count 554 K/UL (150-450) H Mean Platelet Volume 5.3 FL (6.5-10.1) L Neutrophils (%) (Auto) % (45.0-75.0) Lymphocytes (%) (Auto) % (20.0-45.0) Monocytes (%) (Auto) % (1.0-10.0) Eosinophils (%) (Auto) % (0.0-3.0) Basophils (%) (Auto) % (0.0-2.0) Differential Total Cells Counted 100 Neutrophils % (Manual) 69 % (45-75) Lymphocytes % (Manual) 21 % (20-45) Monocytes % (Manual) 9 % (1-10) Eosinophils % (Manual) 1 % (0-3) Basophils % (Manual) 0 % (0-2) Band Neutrophils 0 % (0-8) Platelet Estimate Increased H Platelet Morphology Normal Polychromasia 1+ Hypochromasia 1+ Sodium Level 140 MMOL/L (136-145) Potassium Level 4.9 MMOL/L (3.5-5.1) Chloride Level 102 MMOL/L (98-107) Carbon Dioxide Level 34 MMOL/L (21-32) H Anion Gap 4 mmol/L (5-15) L Blood Urea Nitrogen 21 mg/dL (7-18) H Creatinine 0.8 MG/DL (0.55-1.30) Estimat Glomerular Filtration Rate > 60 mL/min (>60) Glucose Level 196 MG/DL (74-106) H Calcium Level 9.6 MG/DL (8.5-10.1) Phosphorus Level 4.3 MG/DL (2.5-4.9) Magnesium Level 2.1 MG/DL (1.8-2.4) Total Bilirubin 0.1 MG/DL (0.2-1.0) L Direct Bilirubin < 0.1 MG/DL (0.0-0.3) Aspartate Amino Transf (AST/SGOT) 38 U/L (15-37) H Alanine Aminotransferase (ALT/SGPT) 31 U/L (12-78) Alkaline Phosphatase 89 U/L (46-116) Total Protein 7.0 G/DL (6.4-8.2) Albumin 1.6 G/DL (3.4-5.0) L Current Medications Medications (Trade) Dose Ordered Sig/Esequiel Route PRN Reason Start Time Stop Time Status Last Admin Dose Admin Acetaminophen (Tylenol) 650 mg Q4H PRN GT Mild Pain (Pain Scale 1-3) 12/22/19 19:00 01/10/20 18:59 12/25/19 18:00 Acetaminophen (Tylenol) 650 mg Q4H PRN RECTAL Mild Pain (Pain Scale 1-3) 12/22/19 19:00 01/10/20 18:59 Chlorhexidine Gluconate (Bijal-Hex 2%) 1 applic DAILY@2000 TOPIC 12/22/19 20:00 03/11/20 19:59 12/25/19 20:37 Dextrose (Dextrose 50%) 25 ml Q30M PRN IV Hypoglycemia 12/22/19 19:00 03/12/20 01:59 Dextrose (Dextrose 50%) 50 ml Q30M PRN IV Hypoglycemia 12/22/19 19:00 03/12/20 01:59 Dextrose/ Electrolytes 1,000 ml @ 40 mls/hr Q24H IV 12/22/19 19:00 01/21/20 16:07 12/25/19 18:31 Insulin Aspart (NovoLOG) Q6HR SUBQ 12/23/19 00:00 03/12/20 04:59 12/26/19 12:00 Insulin Detemir (Levemir) 20 units Q12HR SUBQ 12/23/19 21:00 03/20/20 08:59 12/26/19 09:26 Lactobacillus Acidophilus (Culturelle) 1 tab THREE TIMES A DAY NG 12/23/19 09:00 03/18/20 12:59 12/25/19 17:33 Loperamide HCl (Imodium) 2 mg Q4H PRN ORAL Diarrhea 12/22/19 19:00 01/21/20 18:59 Ondansetron HCl (Zofran) 4 mg Q6H PRN IVP Nausea & Vomiting 12/22/19 19:00 01/10/20 18:59 Pantoprazole (Protonix) 40 mg EVERY 12 HOURS IVP 12/22/19 21:00 01/11/20 08:59 12/26/19 09:17 Potassium Chloride (K-Dur) 40 meq BID ORAL 12/23/19 09:00 03/17/20 08:59 12/25/19 17:33 Spironolactone (Aldactone) 25 mg BID ORAL 12/23/19 09:00 01/17/20 10:59 12/25/19 17:33 Brandin Ochoa MD December 26, 2019 13:00
[2019-12-26] MEDS: D5 1/2NS 1,000 ML IV SCH (13:48)
[2019-12-26 16:00] VITALS: BP 115/76
[2019-12-26 20:00] VITALS: BP 100/68
[2019-12-26] MEDS: Dyna-Hex 2% Top Sol 2oz TOPIC SCH (20:23)
[2019-12-27] VITALS: BP 97/62
--- NOTE | 2019-12-27 02:45 | Progress Note ---
DATE: 12/26/2019 SUBJECTIVE: The patient is an elderly female came with acute respiratory failure and was DKA. The patient was treated with IV fluid and antibiotics. The patient has failed swallow evaluation. The patient physically otherwise is doing fine. PLAN: We will currently continue current treatment. Frank Pinzon M.D. DR: PIERRE JOB#: [id number] CC:
[2019-12-27 04:00] VITALS: BP 93/55
[2019-12-27] MEDS: NovoLOG Insulin Flexpen SUBQ SCH ×5 (05:47→23:39)
[2019-12-27 07:03] LABS: ANION GAP 5 mmol/L (5-15); BLOOD UREA NITROGEN 24 mg/dL (7-18); CARBON DIOXIDE 32 MMOL/L (21-32); CHLORIDE 103 MMOL/L (98-107); CREATININE 0.9 MG/DL (0.55-1.30); SODIUM 140 MMOL/L (136-145)
--- NOTE | 2019-12-27 07:13 | General Progress Note ---
Assessment/Plan Problem List: (1) DKA (diabetic ketoacidoses) ICD Codes: E11.10 - Type 2 diabetes mellitus with ketoacidosis without coma SNOMED: 996017624, 19106036 Qualifiers: Qualified Codes: E13.11 - Other specified diabetes mellitus with ketoacidosis with coma (2) Cardiac arrest ICD Codes: I46.9 - Cardiac arrest, cause unspecified SNOMED: 548633402 (3) Coffee ground emesis ICD Codes: K92.0 - Hematemesis SNOMED: 90780667 (4) Abnormal TSH ICD Codes: R79.89 - Other specified abnormal findings of blood chemistry SNOMED: 092037318 Assessment/Plan: continue Levemir 20 units bid continue Novolog sliding scale every 6 hours TSH normalized Subjective ROS Limited/Unobtainable: Yes Allergies: Coded Allergies: No Known Allergies (Unverified , 12/11/19) Subjective events noted - interval notes reviewed glucose values are stable Item Value Date Time Bedside Blood Glucose 190 mg/dl H 12/27/19 0547 Bedside Blood Glucose 110 mg/dl 12/27/19 0005 Bedside Blood Glucose 131 mg/dl H 12/26/19 2025 Bedside Blood Glucose 131 mg/dl H 12/26/19 1800 Bedside Blood Glucose 141 mg/dl H 12/26/19 1200 Bedside Blood Glucose 204 mg/dl H 12/26/19 0926 Objective Last 24 Hour Vital Signs Date Time Temp Pulse Resp B/P (MAP) Pulse Ox O2 Delivery O2 Flow Rate FiO2 12/27/19 04:00 97.3 98 28 93/55 (68) 95 12/27/19 00:00 97.3 98 28 97/62 (74) 97 12/26/19 21:00 Nasal Cannula 5.0 12/26/19 20:00 97.0 104 32 100/68 (79) 95 12/26/19 16:00 97.9 104 20 115/76 (89) 95 12/26/19 12:02 98.4 107 20 110/70 (83) 99 12/26/19 09:00 Nasal Cannula 5.0 12/26/19 08:00 97.5 109 24 120/70 (87) 99 Intake and Output 12/26/19 12/27/19 19:00 07:00 Intake Total 480 ml 200 ml Output Total 1200 ml 900 ml Balance -720 ml -700 ml IV Total 480 ml 200 ml Output Urine Total 1200 ml 900 ml # Voids 1 1 # Bowel Movements 1 1 Laboratory Tests 12/27/19 06:05: White Blood Count [Pending], Red Blood Count [Pending], Hemoglobin [Pending], Hematocrit [Pending], Mean Corpuscular Volume [Pending], Mean Corpuscular Hemoglobin [Pending], Mean Corpuscular Hemoglobin Concent [Pending], Red Cell Distribution Width [Pending], Platelet Count [Pending], Mean Platelet Volume [ Pending], Neutrophils (%) (Auto) [Pending], Lymphocytes (%) (Auto) [Pending], Monocytes (%) (Auto) [Pending], Eosinophils (%) (Auto) [Pending], Basophils (%) (Auto) [Pending], Sodium Level 140, Potassium Level 4.0, Chloride Level 103, Carbon Dioxide Level 32, Anion Gap 5, Blood Urea Nitrogen 24H, Creatinine 0.9, Estimat Glomerular Filtration Rate > 60, Glucose Level 172H, Calcium Level 9.0 Height (Feet): 5 Height (Inches): 4.00 Weight (Pounds): 162 General Appearance: no apparent distress Neck: normal alignment Cardiovascular: normal rate Respiratory/Chest: decreased breath sounds Abdomen: normal bowel sounds Objective Current Medications Medications (Trade) Dose Ordered Sig/Esequiel Route PRN Reason Start Time Stop Time Status Last Admin Dose Admin Acetaminophen (Tylenol) 650 mg Q4H PRN GT Mild Pain (Pain Scale 1-3) 12/22/19 19:00 01/10/20 18:59 12/25/19 18:00 Acetaminophen (Tylenol) 650 mg Q4H PRN RECTAL Mild Pain (Pain Scale 1-3) 12/22/19 19:00 01/10/20 18:59 Chlorhexidine Gluconate (Bijal-Hex 2%) 1 applic DAILY@2000 TOPIC 12/22/19 20:00 03/11/20 19:59 12/26/19 20:23 Dextrose (Dextrose 50%) 25 ml Q30M PRN IV Hypoglycemia 12/22/19 19:00 03/12/20 01:59 Dextrose (Dextrose 50%) 50 ml Q30M PRN IV Hypoglycemia 12/22/19 19:00 03/12/20 01:59 Dextrose/Sodium Chloride 1,000 ml @ 40 mls/hr Q24H IV 12/26/19 13:45 01/25/20 13:44 12/26/19 13:48 Insulin Aspart (NovoLOG) Q6HR SUBQ 12/23/19 00:00 03/12/20 04:59 12/27/19 05:47 Insulin Detemir (Levemir) 20 units Q12HR SUBQ 12/23/19 21:00 03/20/20 08:59 12/26/19 20:25 Lactobacillus Acidophilus (Culturelle) 1 tab THREE TIMES A DAY NG 12/23/19 09:00 03/18/20 12:59 12/25/19 17:33 Loperamide HCl (Imodium) 2 mg Q4H PRN ORAL Diarrhea 12/22/19 19:00 01/21/20 18:59 Ondansetron HCl (Zofran) 4 mg Q6H PRN IVP Nausea & Vomiting 12/22/19 19:00 01/10/20 18:59 Pantoprazole (Protonix) 40 mg EVERY 12 HOURS IVP 12/22/19 21:00 01/11/20 08:59 12/26/19 20:23 Potassium Chloride (K-Dur) 40 meq BID ORAL 12/23/19 09:00 03/17/20 08:59 12/25/19 17:33 Spironolactone (Aldactone) 25 mg BID ORAL 12/23/19 09:00 01/17/20 10:59 12/25/19 17:33 Stef Ortega MD Dec 27, 2019 07:13
[2019-12-27 07:14] LABS: BASOPHILS % (AUTO) 1.1 % (0.0-2.0); EOSINOPHILS % (AUTO) 3.7 % (0.0-3.0); HEMATOCRIT 24.3 % (37.0-47.0); HEMOGLOBIN 8.1 G/DL (12.0-16.0); LYMPHOCYTES % (AUTO) 27.6 % (20.0-45.0); MEAN CORPUSCULAR VOLUME 89 FL (80-99); NEUTROPHILS % (AUTO) 61.6 % (45.0-75.0); PLATELET COUNT 487 K/UL (150-450); RED BLOOD COUNT 2.73 M/UL (4.20-5.40); RED CELL DISTRIBUTION WIDTH 12.6 % (11.6-14.8); WHITE BLOOD COUNT 10.6 K/UL (4.8-10.8)
[2019-12-27 08:00] VITALS: BP 98/59
[2019-12-27] MEDS: Levemir Flexpen SUBQ SCH ×2 (09:00→20:47)
[2019-12-27] MEDS: Spironolactone 25mg tab ORAL SCH ×2 (09:00→18:00)
[2019-12-27] MEDS: Lactobacillus-GG tablet NG SCH ×3 (09:00→18:00)
--- NOTE | 2019-12-27 09:39 | Nephrology Progress Note ---
Assessment/Plan Problem List: (1) DEANDRA (acute kidney injury) Assessment: Resolved (2) Hypotension (3) Cardiac arrest (4) DKA (diabetic ketoacidoses) (5) Respiratory distress (6) Coffee ground emesis (7) Electrolyte imbalance Assessment Acute renal failure which probably is superimposed on chronic kidney disease History of diabetes mellitus, most likely diabetic nephropathy. Presents with diabetic ketoacidosis Acute respiratory failure requiring intubation and mechanical ventilation Aspiration pneumonia, upper GI bleed Proteinuria and severe hypoalbuminemia should rule out nephrotic range proteinuria Anemia Electrolyte imbalances Plan Patient due for PEG when cleared by anesthesia Meanwhile continue NG tube feeding Electrolytes seems to be reasonably corrected Previously: Off Reglan as the patient has diarrhea C. difficile negative Patient is doing well post extubation Will replace potassium, magnesium, and phosphorus as needed Previously 2 units of packed RBCs was transfused Hydrate as needed and monitor electrolytes Per orders Previously Monitor renal parameters Avoid nephrotoxic's Anemia work-up Urine studies Keep blood sugar and blood pressure in check Per consultants Discussed with RN Subjective ROS Limited/Unobtainable: No Constitutional: Reports: malaise, weakness Objective Objective Last 24 Hour Vital Signs Date Time Temp Pulse Resp B/P (MAP) Pulse Ox O2 Delivery O2 Flow Rate FiO2 12/27/19 08:00 98.3 94 23 98/59 (72) 94 12/27/19 04:00 97.3 98 28 93/55 (68) 95 12/27/19 00:00 97.3 98 28 97/62 (74) 97 12/26/19 21:00 Nasal Cannula 5.0 12/26/19 20:00 97.0 104 32 100/68 (79) 95 12/26/19 16:00 97.9 104 20 115/76 (89) 95 12/26/19 12:02 98.4 107 20 110/70 (83) 99 Intake and Output 12/26/19 12/27/19 18:59 06:59 Intake Total 480 ml 240 ml Output Total 1200 ml 900 ml Balance -720 ml -660 ml IV Total 480 ml 240 ml Output Urine Total 1200 ml 900 ml # Voids 1 1 # Bowel Movements 1 1 Laboratory Tests 12/27/19 06:05: White Blood Count 10.6, Red Blood Count 2.73L, Hemoglobin 8.1L, Hematocrit 24.3L , Mean Corpuscular Volume 89, Mean Corpuscular Hemoglobin 29.8, Mean Corpuscular Hemoglobin Concent 33.5, Red Cell Distribution Width 12.6, Platelet Count 487H, Mean Platelet Volume 5.6L, Neutrophils (%) (Auto) 61.6, Lymphocytes (%) (Auto) 27.6, Monocytes (%) (Auto) 6.0, Eosinophils (%) (Auto) 3.7H, Basophils (%) (Auto) 1.1, Sodium Level 140, Potassium Level 4.0, Chloride Level 103, Carbon Dioxide Level 32, Anion Gap 5, Blood Urea Nitrogen 24H, Creatinine 0.9, Estimat Glomerular Filtration Rate > 60, Glucose Level 172H, Calcium Level 9.0 Height (Feet): 5 Height (Inches): 4.00 Weight (Pounds): 162 General Appearance: no apparent distress Cardiovascular: tachycardia Respiratory/Chest: decreased breath sounds Abdomen: soft Don Ventura MD Dec 27, 2019 09:39
[2019-12-27] MEDS ORDERED: D5NS 1000ml IV ONE (09:42)
--- NOTE | 2019-12-27 10:02 | General Progress Note ---
Assessment/Plan Problem List: (1) Coffee ground emesis ICD Codes: K92.0 - Hematemesis SNOMED: 72624058 (2) High blood urea nitrogen (BUN) ICD Codes: R79.9 - Abnormal finding of blood chemistry, unspecified SNOMED: 865161730, 819721163 (3) High serum creatine ICD Codes: R79.89 - Other specified abnormal findings of blood chemistry SNOMED: 265372780, 025535613 (4) DKA (diabetic ketoacidoses) ICD Codes: E11.10 - Type 2 diabetes mellitus with ketoacidosis without coma SNOMED: 401296192, 84864739 Qualifiers: Qualified Codes: E13.11 - Other specified diabetes mellitus with ketoacidosis with coma (5) Altered mental status ICD Codes: R41.82 - Altered mental status, unspecified SNOMED: 966003519, 45071944 Qualifiers: Qualified Codes: R41.82 - Altered mental status, unspecified (6) Cardiac arrest ICD Codes: I46.9 - Cardiac arrest, cause unspecified SNOMED: 373405858 (7) Respiratory distress ICD Codes: R06.03 - Acute respiratory distress SNOMED: 759288544 Assessment/Plan: s/p 2 units prbc in this admission positive stool ob x1 ppi iv BID monitor H&H transfuse to keep HGB above 7.5 patient is tachypneic on 7 lit o2 tachycardic PEG was canceled by anesthesia last week patient pulled her NGT ordered repeat swallow eval for today Subjective Allergies: Coded Allergies: No Known Allergies (Unverified , 12/11/19) Objective Last 24 Hour Vital Signs Date Time Temp Pulse Resp B/P (MAP) Pulse Ox O2 Delivery O2 Flow Rate FiO2 12/27/19 08:00 98.3 94 23 98/59 (72) 94 12/27/19 04:00 97.3 98 28 93/55 (68) 95 12/27/19 00:00 97.3 98 28 97/62 (74) 97 12/26/19 21:00 Nasal Cannula 5.0 12/26/19 20:00 97.0 104 32 100/68 (79) 95 12/26/19 16:00 97.9 104 20 115/76 (89) 95 12/26/19 12:02 98.4 107 20 110/70 (83) 99 Intake and Output 12/26/19 12/27/19 18:59 06:59 Intake Total 480 ml 240 ml Output Total 1200 ml 900 ml Balance -720 ml -660 ml IV Total 480 ml 240 ml Output Urine Total 1200 ml 900 ml # Voids 1 1 # Bowel Movements 1 1 Laboratory Tests 12/27/19 06:05: White Blood Count 10.6, Red Blood Count 2.73L, Hemoglobin 8.1L, Hematocrit 24.3L , Mean Corpuscular Volume 89, Mean Corpuscular Hemoglobin 29.8, Mean Corpuscular Hemoglobin Concent 33.5, Red Cell Distribution Width 12.6, Platelet Count 487H, Mean Platelet Volume 5.6L, Neutrophils (%) (Auto) 61.6, Lymphocytes (%) (Auto) 27.6, Monocytes (%) (Auto) 6.0, Eosinophils (%) (Auto) 3.7H, Basophils (%) (Auto) 1.1, Sodium Level 140, Potassium Level 4.0, Chloride Level 103, Carbon Dioxide Level 32, Anion Gap 5, Blood Urea Nitrogen 24H, Creatinine 0.9, Estimat Glomerular Filtration Rate > 60, Glucose Level 172H, Calcium Level 9.0 Height (Feet): 5 Height (Inches): 4.00 Weight (Pounds): 162 General Appearance: alert EENT: normal ENT inspection Neck: supple Cardiovascular: normal rate Respiratory/Chest: decreased breath sounds Abdomen: normal bowel sounds, non tender, soft Extremities: non-tender Maykel Stephen MD Dec 27, 2019 10:02
--- NOTE | 2019-12-27 10:28 | Pulmonology Progress Note ---
Subjective ROS Limited/Unobtainable: No Interval Events: Extubated 12/13/19; NGT in place Constitutional: Reports: no symptoms HEENT: Repors: no symptoms Respiratory: Reports: no symptoms Cardiovascular: Reports: no symptoms Gastrointestinal/Abdominal: Reports: no symptoms Genitourinary: Reports: no symptoms Musculoskeletal: Denies: pain Allergies: Coded Allergies: No Known Allergies (Unverified , 12/11/19) All Systems: reviewed and negative except above Objective Last 24 Hour Vital Signs Date Time Temp Pulse Resp B/P (MAP) Pulse Ox O2 Delivery O2 Flow Rate FiO2 12/27/19 08:00 98.3 94 23 98/59 (72) 94 12/27/19 04:00 97.3 98 28 93/55 (68) 95 12/27/19 00:00 97.3 98 28 97/62 (74) 97 12/26/19 21:00 Nasal Cannula 5.0 12/26/19 20:00 97.0 104 32 100/68 (79) 95 12/26/19 16:00 97.9 104 20 115/76 (89) 95 12/26/19 12:02 98.4 107 20 110/70 (83) 99 Intake and Output 12/26/19 12/27/19 19:00 07:00 Intake Total 480 ml 200 ml Output Total 1200 ml 900 ml Balance -720 ml -700 ml IV Total 480 ml 200 ml Output Urine Total 1200 ml 900 ml # Voids 1 1 # Bowel Movements 1 1 General Appearance: no acute distress HEENT: normocephalic Respiratory: chest wall non-tender, lungs clear Cardiovascular: normal peripheral pulses, normal rate Abdomen: normal bowel sounds Laboratory Tests 12/27/19 06:05: White Blood Count 10.6, Red Blood Count 2.73L, Hemoglobin 8.1L, Hematocrit 24.3L , Mean Corpuscular Volume 89, Mean Corpuscular Hemoglobin 29.8, Mean Corpuscular Hemoglobin Concent 33.5, Red Cell Distribution Width 12.6, Platelet Count 487H, Mean Platelet Volume 5.6L, Neutrophils (%) (Auto) 61.6, Lymphocytes (%) (Auto) 27.6, Monocytes (%) (Auto) 6.0, Eosinophils (%) (Auto) 3.7H, Basophils (%) (Auto) 1.1, Sodium Level 140, Potassium Level 4.0, Chloride Level 103, Carbon Dioxide Level 32, Anion Gap 5, Blood Urea Nitrogen 24H, Creatinine 0.9, Estimat Glomerular Filtration Rate > 60, Glucose Level 172H, Calcium Level 9.0 Current Medications Medications (Trade) Dose Ordered Sig/Esequiel Route PRN Reason Start Time Stop Time Status Last Admin Dose Admin Acetaminophen (Tylenol) 650 mg Q4H PRN GT Mild Pain (Pain Scale 1-3) 12/22/19 19:00 01/10/20 18:59 12/25/19 18:00 Acetaminophen (Tylenol) 650 mg Q4H PRN RECTAL Mild Pain (Pain Scale 1-3) 12/22/19 19:00 01/10/20 18:59 Chlorhexidine Gluconate (Bijal-Hex 2%) 1 applic DAILY@2000 TOPIC 12/22/19 20:00 03/11/20 19:59 12/26/19 20:23 Dextrose (Dextrose 50%) 25 ml Q30M PRN IV Hypoglycemia 12/22/19 19:00 03/12/20 01:59 Dextrose (Dextrose 50%) 50 ml Q30M PRN IV Hypoglycemia 12/22/19 19:00 03/12/20 01:59 Dextrose/Sodium Chloride 1,000 ml @ 40 mls/hr Q24H IV 12/26/19 13:45 01/25/20 13:44 12/26/19 13:48 Insulin Aspart (NovoLOG) Q6HR SUBQ 12/23/19 00:00 03/12/20 04:59 12/27/19 05:47 Insulin Detemir (Levemir) 20 units Q12HR SUBQ 12/23/19 21:00 03/20/20 08:59 12/26/19 20:25 Lactobacillus Acidophilus (Culturelle) 1 tab THREE TIMES A DAY NG 12/23/19 09:00 03/18/20 12:59 12/25/19 17:33 Loperamide HCl (Imodium) 2 mg Q4H PRN ORAL Diarrhea 12/22/19 19:00 01/21/20 18:59 Ondansetron HCl (Zofran) 4 mg Q6H PRN IVP Nausea & Vomiting 12/22/19 19:00 01/10/20 18:59 Pantoprazole (Protonix) 40 mg EVERY 12 HOURS IVP 12/22/19 21:00 01/11/20 08:59 12/26/19 20:23 Potassium Chloride (K-Dur) 40 meq BID ORAL 12/23/19 09:00 03/17/20 08:59 12/25/19 17:33 Spironolactone (Aldactone) 25 mg BID ORAL 12/23/19 09:00 01/17/20 10:59 12/25/19 17:33 Assessment/Plan Assessment/Plan IMPRESSION: 1. DKA. Resolved 2. Upper GI bleed. 3. Respiratory failure. Now extubated 4. Lactic acidosis. DISCUSSION: Continue antibiotics I will continue oxygen, Protonix, DVT prophylaxis. Saturating 95% on 4L/min O2 S/P PEG Osorio Harris Omar Syed MD Dec 27, 2019 10:28
[2019-12-27] MEDS: Pantoprazole Inj IVP SCH ×2 (10:41→20:47)
--- NOTE | 2019-12-27 11:01 | Infectious Diseases Prog Note ---
Assessment/Plan Assessment/Plan antibiotics : none A 1. pneumonia s/p rx COVID 19 test negative 2. Diabetic ketoacidosis resolving 3. Renal failure resolved 4. Leukocytosis resolved 5. fever resolved P 1. observe off antibiotics Subjective Constitutional: Denies: fever, chills Respiratory: Reports: dry cough; Denies: shortness of breath Gastrointestinal/Abdominal: Denies: nausea, vomiting, diarrhea Musculoskeletal: Denies: pain Allergies: Coded Allergies: No Known Allergies (Unverified , 12/11/19) Objective Vital Signs Last 24 Hour Vital Signs Date Time Temp Pulse Resp B/P (MAP) Pulse Ox O2 Delivery O2 Flow Rate FiO2 12/27/19 08:00 98.3 94 23 98/59 (72) 94 12/27/19 04:00 97.3 98 28 93/55 (68) 95 12/27/19 00:00 97.3 98 28 97/62 (74) 97 12/26/19 21:00 Nasal Cannula 5.0 12/26/19 20:00 97.0 104 32 100/68 (79) 95 12/26/19 16:00 97.9 104 20 115/76 (89) 95 12/26/19 12:02 98.4 107 20 110/70 (83) 99 Height (Feet): 5 Height (Inches): 4.00 Weight (Pounds): 162 Respiratory/Chest: lungs clear Cardiovascular: normal rate, regular rhythm, no gallop/murmur Abdomen: soft, non tender Extremities: no edema Laboratory Tests Test 12/27/19 06:05 White Blood Count 10.6 K/UL (4.8-10.8) Red Blood Count 2.73 M/UL (4.20-5.40) L Hemoglobin 8.1 G/DL (12.0-16.0) L Hematocrit 24.3 % (37.0-47.0) L Mean Corpuscular Volume 89 FL (80-99) Mean Corpuscular Hemoglobin 29.8 PG (27.0-31.0) Mean Corpuscular Hemoglobin Concent 33.5 G/DL (32.0-36.0) Red Cell Distribution Width 12.6 % (11.6-14.8) Platelet Count 487 K/UL (150-450) H Mean Platelet Volume 5.6 FL (6.5-10.1) L Neutrophils (%) (Auto) 61.6 % (45.0-75.0) Lymphocytes (%) (Auto) 27.6 % (20.0-45.0) Monocytes (%) (Auto) 6.0 % (1.0-10.0) Eosinophils (%) (Auto) 3.7 % (0.0-3.0) H Basophils (%) (Auto) 1.1 % (0.0-2.0) Sodium Level 140 MMOL/L (136-145) Potassium Level 4.0 MMOL/L (3.5-5.1) Chloride Level 103 MMOL/L (98-107) Carbon Dioxide Level 32 MMOL/L (21-32) Anion Gap 5 mmol/L (5-15) Blood Urea Nitrogen 24 mg/dL (7-18) H Creatinine 0.9 MG/DL (0.55-1.30) Estimat Glomerular Filtration Rate > 60 mL/min (>60) Glucose Level 172 MG/DL (74-106) H Calcium Level 9.0 MG/DL (8.5-10.1) Current Medications Medications (Trade) Dose Ordered Sig/Esequiel Route PRN Reason Start Time Stop Time Status Last Admin Dose Admin Acetaminophen (Tylenol) 650 mg Q4H PRN GT Mild Pain (Pain Scale 1-3) 12/22/19 19:00 01/10/20 18:59 12/25/19 18:00 Acetaminophen (Tylenol) 650 mg Q4H PRN RECTAL Mild Pain (Pain Scale 1-3) 12/22/19 19:00 01/10/20 18:59 Chlorhexidine Gluconate (Bijal-Hex 2%) 1 applic DAILY@2000 TOPIC 12/22/19 20:00 03/11/20 19:59 12/26/19 20:23 Dextrose (Dextrose 50%) 25 ml Q30M PRN IV Hypoglycemia 12/22/19 19:00 03/12/20 01:59 Dextrose (Dextrose 50%) 50 ml Q30M PRN IV Hypoglycemia 12/22/19 19:00 03/12/20 01:59 Dextrose/Sodium Chloride 1,000 ml @ 40 mls/hr Q24H IV 12/26/19 13:45 01/25/20 13:44 12/26/19 13:48 Insulin Aspart (NovoLOG) Q6HR SUBQ 12/23/19 00:00 03/12/20 04:59 12/27/19 05:47 Insulin Detemir (Levemir) 20 units Q12HR SUBQ 12/23/19 21:00 03/20/20 08:59 12/26/19 20:25 Lactobacillus Acidophilus (Culturelle) 1 tab THREE TIMES A DAY NG 12/23/19 09:00 03/18/20 12:59 12/25/19 17:33 Loperamide HCl (Imodium) 2 mg Q4H PRN ORAL Diarrhea 12/22/19 19:00 01/21/20 18:59 Ondansetron HCl (Zofran) 4 mg Q6H PRN IVP Nausea & Vomiting 12/22/19 19:00 01/10/20 18:59 Pantoprazole (Protonix) 40 mg EVERY 12 HOURS IVP 12/22/19 21:00 01/11/20 08:59 12/27/19 10:41 Potassium Chloride (K-Dur) 40 meq BID ORAL 12/23/19 09:00 03/17/20 08:59 12/25/19 17:33 Spironolactone (Aldactone) 25 mg BID ORAL 12/23/19 09:00 01/17/20 10:59 12/25/19 17:33 Eden Salvador MD Dec 27, 2019 11:01
--- NOTE | 2019-12-27 12:44 | Surgery Progress Note ---
Surgery Progress Note Subjective Additional Comments states she is not eating well has considered peg again no n/v/f/c labs noted upper lip eschar Objective Last 24 Hour Vital Signs Date Time Temp Pulse Resp B/P (MAP) Pulse Ox O2 Delivery O2 Flow Rate FiO2 12/27/19 08:00 98.3 94 23 98/59 (72) 94 12/27/19 04:00 97.3 98 28 93/55 (68) 95 12/27/19 00:00 97.3 98 28 97/62 (74) 97 12/26/19 21:00 Nasal Cannula 5.0 12/26/19 20:00 97.0 104 32 100/68 (79) 95 12/26/19 16:00 97.9 104 20 115/76 (89) 95 I&O Intake and Output 12/26/19 12/27/19 19:00 07:00 Intake Total 480 ml 200 ml Output Total 1200 ml 900 ml Balance -720 ml -700 ml IV Total 480 ml 200 ml Output Urine Total 1200 ml 900 ml # Voids 1 1 # Bowel Movements 1 1 Dressing: other Wound: other Drains: other Cardiovascular: RSR Respiratory: decreased breath sounds Abdomen: soft, non-tender, present bowel sounds Extremities: no cyanosis Laboratory Tests Test 12/27/19 06:05 White Blood Count 10.6 K/UL (4.8-10.8) Red Blood Count 2.73 M/UL (4.20-5.40) L Hemoglobin 8.1 G/DL (12.0-16.0) L Hematocrit 24.3 % (37.0-47.0) L Mean Corpuscular Volume 89 FL (80-99) Mean Corpuscular Hemoglobin 29.8 PG (27.0-31.0) Mean Corpuscular Hemoglobin Concent 33.5 G/DL (32.0-36.0) Red Cell Distribution Width 12.6 % (11.6-14.8) Platelet Count 487 K/UL (150-450) H Mean Platelet Volume 5.6 FL (6.5-10.1) L Neutrophils (%) (Auto) 61.6 % (45.0-75.0) Lymphocytes (%) (Auto) 27.6 % (20.0-45.0) Monocytes (%) (Auto) 6.0 % (1.0-10.0) Eosinophils (%) (Auto) 3.7 % (0.0-3.0) H Basophils (%) (Auto) 1.1 % (0.0-2.0) Sodium Level 140 MMOL/L (136-145) Potassium Level 4.0 MMOL/L (3.5-5.1) Chloride Level 103 MMOL/L (98-107) Carbon Dioxide Level 32 MMOL/L (21-32) Anion Gap 5 mmol/L (5-15) Blood Urea Nitrogen 24 mg/dL (7-18) H Creatinine 0.9 MG/DL (0.55-1.30) Estimat Glomerular Filtration Rate > 60 mL/min (>60) Glucose Level 172 MG/DL (74-106) H Calcium Level 9.0 MG/DL (8.5-10.1) Plan Problems: (1) Cardiac arrest (2) DKA (diabetic ketoacidoses) (3) Respiratory distress (4) Altered mental status (5) Coffee ground emesis Assessment & Plan: Coffee-ground emesis concerning for GI bleed. Transfuse PRBC now stable. No acute active bleeding noted. Discussed with GI. Will follow with recommendations hold on acute surgical intervention MBSS with 2L nasal cannula. RR appears slightly elevated. Patient given PO trials barium liquids in various consistencies. INITIAL RESULTS: Patient presenting with moderate to moderately severe oropharyngeal dysphagia. Initial review of images reveals the following: -Thin Liquids: Radiographic evidence of penetration and trace aspiration. -[place] Thick: Radiographic evidence of penetration and trace aspiration. -[place] Thick: Radiographic evidence of penetration and suspected aspiration ( view limited by Patient positioning). TRIAL TX: Attempted the following compensatory strategies: Double swallow, chin tuck, effortful swallow, and throat clear/re-swallow; No change in swallowing function/safety. Trials were ceased as Patient was presenting with increasingly wet vocal quality , ongoing coughing which appears wet, RR continued to appear high, and recurrent penetration and trace aspiration. At this time, MD to consider alternative method for care home nutrition/ hydration and medication management as Patient's swallow continues to be inefficient and Patient presents with radiographic evidence of penetration and/ or aspiration across all consistencies. (6) High serum creatine (7) High blood urea nitrogen (BUN) (8) Abnormal TSH (9) DEANDRA (acute kidney injury) (10) Hypotension (11) Electrolyte imbalance (12) Hyperkalemia (13) Deep tissue injury Assessment & Plan: Patient identified to have a sacral deep tissue injury. No areas of open skin. No signs of acute active infection. Patient critically ill intensive care unit on support slowly making a recovery. Will make all times prevention as well as initiate care plan for healing. Turn every 2 hours. Skin protectant OPTi foam dressing. Offload heels with pillows. Will monitor closely. Great nursing care being provided. Nutritional optimization upper lip eschar 3cm x 0.5 superficial healing DAILY ESTIMATED NEEDS: Needs based on DM, pulmonary 65.5kg 25-30 kcals/kg 4096-2123 total kcals 1-1.5 g protein/kg 66-98 g total protein 25-30 mL/kg 6514-8985 total fluid mLs NUTRITION DIAGNOSIS: Swallowing difficulty r/t Cardiopulmonary arrest as evidenced by pt now orally intubated, ICU, adm w/ DKA, now on pressor support x3- now s/p extubation, pending SPRAY GUNNER eval. CURRENT TF: NPO PO DIET [facility]OMM[facility]ATIONS[facility]/ TEXTURE PER SPR[facility] GUNNER ADDITIONAL RECOMMENDATIONS: 1) Diet recs as above, SPRAY GUNNER eval pending 2) Maintain calibrated bed scale wts 3) Replete lytes as needed 4) Add Glucerna w/ poor po intake Enrrique Martins Dec 27, 2019 12:44
--- NOTE | 2019-12-27 13:37 | Cardiac Electrophysiology PN ---
Assessment/Plan Assessment/Plan 1. S/P Septic shock. Off pressors. EF 60%. EKG shows sinus tachy with no acute ST-T wave abnormalities. 2. S/P Respiratory failure, Extubated. On Face Mask 3. Hypotension. Resolved 4. Coffee-ground emesis. S/P 2 units of PRBC 5. S/P Diabetic ketoacidosis 6. Persistent hypokalemia. Improved on aldactone 25 bid and KCL po by Dr Ventura 7. Failed swallow eval. S/P PEG today by Dr. Zafar HINOJOSA RN Subjective Subjective 1st covid negative on 12/13. Second Covid negative 12/18. Off isolation. S/P PEG today Objective Last 24 Hour Vital Signs Date Time Temp Pulse Resp B/P (MAP) Pulse Ox O2 Delivery O2 Flow Rate FiO2 12/27/19 08:00 98.3 94 23 98/59 (72) 94 12/27/19 04:00 97.3 98 28 93/55 (68) 95 12/27/19 00:00 97.3 98 28 97/62 (74) 97 12/26/19 21:00 Nasal Cannula 5.0 12/26/19 20:00 97.0 104 32 100/68 (79) 95 12/26/19 16:00 97.9 104 20 115/76 (89) 95 Intake and Output 12/26/19 12/27/19 19:00 07:00 Intake Total 480 ml 200 ml Output Total 1200 ml 900 ml Balance -720 ml -700 ml IV Total 480 ml 200 ml Output Urine Total 1200 ml 900 ml # Voids 1 1 # Bowel Movements 1 1 Laboratory Tests Test 12/27/19 06:05 White Blood Count 10.6 K/UL (4.8-10.8) Red Blood Count 2.73 M/UL (4.20-5.40) L Hemoglobin 8.1 G/DL (12.0-16.0) L Hematocrit 24.3 % (37.0-47.0) L Mean Corpuscular Volume 89 FL (80-99) Mean Corpuscular Hemoglobin 29.8 PG (27.0-31.0) Mean Corpuscular Hemoglobin Concent 33.5 G/DL (32.0-36.0) Red Cell Distribution Width 12.6 % (11.6-14.8) Platelet Count 487 K/UL (150-450) H Mean Platelet Volume 5.6 FL (6.5-10.1) L Neutrophils (%) (Auto) 61.6 % (45.0-75.0) Lymphocytes (%) (Auto) 27.6 % (20.0-45.0) Monocytes (%) (Auto) 6.0 % (1.0-10.0) Eosinophils (%) (Auto) 3.7 % (0.0-3.0) H Basophils (%) (Auto) 1.1 % (0.0-2.0) Sodium Level 140 MMOL/L (136-145) Potassium Level 4.0 MMOL/L (3.5-5.1) Chloride Level 103 MMOL/L (98-107) Carbon Dioxide Level 32 MMOL/L (21-32) Anion Gap 5 mmol/L (5-15) Blood Urea Nitrogen 24 mg/dL (7-18) H Creatinine 0.9 MG/DL (0.55-1.30) Estimat Glomerular Filtration Rate > 60 mL/min (>60) Glucose Level 172 MG/DL (74-106) H Calcium Level 9.0 MG/DL (8.5-10.1) Objective HEAD AND NECK: No JVD. NGT feeding LUNGS: Coarse rhonchi. CARDIOVASCULAR: Irregular S1-S2 and tachycardic. ABDOMEN: Soft. EXTREMITIES: No pitting edema. Gerardo Dyer MD Dec 27, 2019 13:37
--- NOTE | 2019-12-27 14:51 | Diagnostic Imaging Report ---
Indication: Pain, abnormal chest sounds Technique: One view of the chest Comparison: 12/17/2019 Findings: Bilateral infiltrates are again demonstrated, appearing somewhat less extensive than on the previous study. Normal heart size. The pleural spaces are clear. Interim placement left arm PICC, tip which projects at the level of thyroid atrium Impression: Improved but persistent bilateral infiltrates, since prior study 12/17/2019
[2019-12-27 16:00] VITALS: BP 100/63
[2019-12-27] MEDS: D5 1/2NS 1,000 ML IV SCH (18:17)
[2019-12-27] MEDS: Dyna-Hex 2% Top Sol 2oz TOPIC SCH (19:54)
[2019-12-27 20:00] VITALS: BP 105/68
[2019-12-28] VITALS: BP 99/69
[2019-12-28 04:00] VITALS: BP 94/66
[2019-12-28] MEDS: NovoLOG Insulin Flexpen SUBQ SCH ×3 (05:50→17:28)
[2019-12-28 08:00] VITALS: BP 97/68
[2019-12-28] MEDS: Lactobacillus-GG tablet NG SCH ×3 (08:23→17:28)
[2019-12-28] MEDS: Levemir Flexpen SUBQ SCH ×2 (08:24→20:27)
[2019-12-28] MEDS: Spironolactone 25mg tab ORAL SCH ×2 (08:24→17:28)
[2019-12-28] MEDS: Pantoprazole Inj IVP SCH ×2 (09:18→20:27)
--- NOTE | 2019-12-28 10:15 | Infectious Diseases Prog Note ---
Assessment/Plan Assessment/Plan antibiotics : none A 1. pneumonia s/p rx COVID 19 test negative 2. Diabetic ketoacidosis resolving 3. Renal failure resolved 4. Leukocytosis resolved 5. fever resolved P 1. observe off antibiotics Subjective Constitutional: Denies: fever, chills Respiratory: Reports: dry cough; Denies: shortness of breath Gastrointestinal/Abdominal: Denies: nausea, vomiting, diarrhea Musculoskeletal: Denies: pain Allergies: Coded Allergies: No Known Allergies (Unverified , 12/11/19) Objective Vital Signs Last 24 Hour Vital Signs Date Time Temp Pulse Resp B/P (MAP) Pulse Ox O2 Delivery O2 Flow Rate FiO2 12/28/19 08:00 97.5 90 21 97/68 (78) 100 12/28/19 04:00 97.2 93 22 94/66 (75) 100 12/28/19 00:00 97.7 99 22 99/69 (79) 100 12/27/19 21:38 Nasal Cannula 3.0 12/27/19 20:00 97.7 99 22 105/68 (80) 100 12/27/19 19:56 96 Nasal Cannula 4.0 36 12/27/19 16:00 98.1 98 22 100/63 (75) 97 Height (Feet): 5 Height (Inches): 4.00 Weight (Pounds): 161 Current Medications Medications (Trade) Dose Ordered Sig/Esequiel Route PRN Reason Start Time Stop Time Status Last Admin Dose Admin Acetaminophen (Tylenol) 650 mg Q4H PRN GT Mild Pain (Pain Scale 1-3) 12/22/19 19:00 01/10/20 18:59 12/25/19 18:00 Acetaminophen (Tylenol) 650 mg Q4H PRN RECTAL Mild Pain (Pain Scale 1-3) 12/22/19 19:00 01/10/20 18:59 Chlorhexidine Gluconate (Bijal-Hex 2%) 1 applic DAILY@1999 TOPIC 12/22/19 20:00 03/11/20 19:59 12/27/19 19:54 Dextrose (Dextrose 50%) 25 ml Q30M PRN IV Hypoglycemia 12/22/19 19:00 03/12/20 01:59 Dextrose (Dextrose 50%) 50 ml Q30M PRN IV Hypoglycemia 12/22/19 19:00 03/12/20 01:59 Dextrose/Sodium Chloride 1,000 ml @ 40 mls/hr Q24H IV 12/26/19 13:45 01/25/20 13:44 12/27/19 18:17 Insulin Aspart (NovoLOG) Q6HR SUBQ 12/23/19 00:00 03/12/20 04:59 12/28/19 05:50 Insulin Detemir (Levemir) 20 units Q12HR SUBQ 12/23/19 21:00 03/20/20 08:59 12/26/19 20:25 Lactobacillus Acidophilus (Culturelle) 1 tab THREE TIMES A DAY NG 12/23/19 09:00 03/18/20 12:59 12/25/19 17:33 Loperamide HCl (Imodium) 2 mg Q4H PRN ORAL Diarrhea 12/22/19 19:00 01/21/20 18:59 Ondansetron HCl (Zofran) 4 mg Q6H PRN IVP Nausea & Vomiting 12/22/19 19:00 01/10/20 18:59 Pantoprazole (Protonix) 40 mg EVERY 12 HOURS IVP 12/22/19 21:00 01/11/20 08:59 12/28/19 09:18 Potassium Chloride (K-Dur) 40 meq BID ORAL 12/23/19 09:00 03/17/20 08:59 12/25/19 17:33 Spironolactone (Aldactone) 25 mg BID ORAL 12/23/19 09:00 01/17/20 10:59 12/25/19 17:33 Eden Salvador MD Dec 28, 2019 10:15
--- NOTE | 2019-12-28 11:00 | Pulmonology Progress Note ---
Subjective ROS Limited/Unobtainable: No Interval Events: Extubated 12/13/19; NGT in place Constitutional: Denies: fever, chills HEENT: Repors: no symptoms Respiratory: Reports: no symptoms Cardiovascular: Reports: no symptoms Gastrointestinal/Abdominal: Denies: nausea, vomiting, diarrhea Genitourinary: Reports: no symptoms Musculoskeletal: Denies: pain Allergies: Coded Allergies: No Known Allergies (Unverified , 12/11/19) All Systems: reviewed and negative except above Objective Last 24 Hour Vital Signs Date Time Temp Pulse Resp B/P (MAP) Pulse Ox O2 Delivery O2 Flow Rate FiO2 12/28/19 09:00 Nasal Cannula 3.0 12/28/19 08:00 97.5 90 21 97/68 (78) 100 12/28/19 04:00 97.2 93 22 94/66 (75) 100 12/28/19 00:00 97.7 99 22 99/69 (79) 100 12/27/19 21:38 Nasal Cannula 3.0 12/27/19 20:00 97.7 99 22 105/68 (80) 100 12/27/19 19:56 96 Nasal Cannula 4.0 36 12/27/19 16:00 98.1 98 22 100/63 (75) 97 Intake and Output 12/27/19 12/28/19 18:59 06:59 Intake Total 280 ml Output Total 600 ml 450 ml Balance -600 ml -170 ml IV Total 280 ml Output Urine Total 600 ml 450 ml # Bowel Movements 1 1 General Appearance: no acute distress HEENT: normocephalic Respiratory: chest wall non-tender, lungs clear Cardiovascular: normal peripheral pulses, normal rate Abdomen: normal bowel sounds Current Medications Medications (Trade) Dose Ordered Sig/Esequiel Route PRN Reason Start Time Stop Time Status Last Admin Dose Admin Acetaminophen (Tylenol) 650 mg Q4H PRN GT Mild Pain (Pain Scale 1-3) 12/22/19 19:00 01/10/20 18:59 12/25/19 18:00 Acetaminophen (Tylenol) 650 mg Q4H PRN RECTAL Mild Pain (Pain Scale 1-3) 12/22/19 19:00 01/10/20 18:59 Chlorhexidine Gluconate (Bijal-Hex 2%) 1 applic DAILY@1999 TOPIC 12/22/19 20:00 03/11/20 19:59 6/1/20 19:54 Dextrose (Dextrose 50%) 25 ml Q30M PRN IV Hypoglycemia 12/22/19 19:00 03/12/20 01:59 Dextrose (Dextrose 50%) 50 ml Q30M PRN IV Hypoglycemia 12/22/19 19:00 03/12/20 01:59 Dextrose/Sodium Chloride 1,000 ml @ 40 mls/hr Q24H IV 12/26/19 13:45 01/25/20 13:44 12/27/19 18:17 Insulin Aspart (NovoLOG) Q6HR SUBQ 12/23/19 00:00 03/12/20 04:59 12/28/19 05:50 Insulin Detemir (Levemir) 20 units Q12HR SUBQ 12/23/19 21:00 03/20/20 08:59 12/26/19 20:25 Lactobacillus Acidophilus (Culturelle) 1 tab THREE TIMES A DAY NG 12/23/19 09:00 03/18/20 12:59 12/25/19 17:33 Loperamide HCl (Imodium) 2 mg Q4H PRN ORAL Diarrhea 12/22/19 19:00 01/21/20 18:59 Ondansetron HCl (Zofran) 4 mg Q6H PRN IVP Nausea & Vomiting 12/22/19 19:00 01/10/20 18:59 Pantoprazole (Protonix) 40 mg EVERY 12 HOURS IVP 12/22/19 21:00 01/11/20 08:59 12/28/19 09:18 Potassium Chloride (K-Dur) 40 meq BID ORAL 12/23/19 09:00 03/17/20 08:59 12/25/19 17:33 Spironolactone (Aldactone) 25 mg BID ORAL 12/23/19 09:00 01/17/20 10:59 12/25/19 17:33 Assessment/Plan Assessment/Plan IMPRESSION: 1. DKA. Resolved 2. Upper GI bleed. 3. Respiratory failure. Now extubated 4. Lactic acidosis. DISCUSSION: Continue antibiotics I will continue oxygen, Protonix, DVT prophylaxis. Saturating 95% on 4L/min O2 Await PEG Osorio Harris Omar Syed MD Dec 28, 2019 11:00
--- NOTE | 2019-12-28 11:12 | Surgery Progress Note ---
Surgery Progress Note Subjective Additional Comments no acute events resting comfortable no n/v/f/c Objective Last 24 Hour Vital Signs Date Time Temp Pulse Resp B/P (MAP) Pulse Ox O2 Delivery O2 Flow Rate FiO2 12/28/19 09:00 Nasal Cannula 3.0 12/28/19 08:00 97.5 90 21 97/68 (78) 100 12/28/19 04:00 97.2 93 22 94/66 (75) 100 12/28/19 00:00 97.7 99 22 99/69 (79) 100 12/27/19 21:38 Nasal Cannula 3.0 12/27/19 20:00 97.7 99 22 105/68 (80) 100 12/27/19 19:56 96 Nasal Cannula 4.0 36 12/27/19 16:00 98.1 98 22 100/63 (75) 97 I&O Intake and Output 12/27/19 12/28/19 18:59 06:59 Intake Total 280 ml Output Total 600 ml 450 ml Balance -600 ml -170 ml IV Total 280 ml Output Urine Total 600 ml 450 ml # Bowel Movements 1 1 Dressing: other Wound: other Drains: other Cardiovascular: RSR Respiratory: decreased breath sounds Abdomen: soft, non-tender, present bowel sounds Extremities: no tenderness, no cyanosis Plan Problems: (1) Cardiac arrest (2) DKA (diabetic ketoacidoses) (3) Respiratory distress (4) Altered mental status (5) Coffee ground emesis Assessment & Plan: Coffee-ground emesis concerning for GI bleed. Transfuse PRBC now stable. No acute active bleeding noted. Discussed with GI. Will follow with recommendations hold on acute surgical intervention MBSS with 2L nasal cannula. RR appears slightly elevated. Patient given PO trials barium liquids in various consistencies. INITIAL RESULTS: Patient presenting with moderate to moderately severe oropharyngeal dysphagia. Initial review of images reveals the following: -Thin Liquids: Radiographic evidence of penetration and trace aspiration. -[place] Thick: Radiographic evidence of penetration and trace aspiration. -[place] Thick: Radiographic evidence of penetration and suspected aspiration ( view limited by Patient positioning). TRIAL TX: Attempted the following compensatory strategies: Double swallow, chin tuck, effortful swallow, and throat clear/re-swallow; No change in swallowing function/safety. Trials were ceased as Patient was presenting with increasingly wet vocal quality , ongoing coughing which appears wet, RR continued to appear high, and recurrent penetration and trace aspiration. At this time, MD to consider alternative method for half-way nutrition/ hydration and medication management as Patient's swallow continues to be inefficient and Patient presents with radiographic evidence of penetration and/ or aspiration across all consistencies. Pending PEG (6) High serum creatine (7) High blood urea nitrogen (BUN) (8) Abnormal TSH (9) DEANDRA (acute kidney injury) (10) Hypotension (11) Electrolyte imbalance (12) Hyperkalemia (13) Deep tissue injury Assessment & Plan: Patient identified to have a sacral deep tissue injury. No areas of open skin. No signs of acute active infection. Patient critically ill intensive care unit on support slowly making a recovery. Will make all times prevention as well as initiate care plan for healing. Turn every 2 hours. Skin protectant OPTi foam dressing. Offload heels with pillows. Will monitor closely. Great nursing care being provided. Nutritional optimization upper lip eschar 3cm x 0.5 superficial healing DAILY ESTIMATED NEEDS: Needs based on DM, pulmonary 65.5kg 25-30 kcals/kg 9264-1929 total kcals 1-1.5 g protein/kg 66-98 g total protein 25-30 mL/kg 4083-6344 total fluid mLs NUTRITION DIAGNOSIS: Swallowing difficulty r/t Cardiopulmonary arrest as evidenced by pt now orally intubated, ICU, adm w/ DKA, now on pressor support x3- now s/p extubation, pending CRUISE COORDINATOR eval. CURRENT TF: NPO PO DIET RECOMMENDATIONS: CCHO MED DIET/ TEXTURE PER CRUISE COORDINATOR ADDITIONAL RECOMMENDATIONS: 1) Diet recs as above, CRUISE COORDINATOR eval pending 2) Maintain calibrated bed scale wts 3) Replete lytes as needed 4) Add Glucerna w/ poor po intake Enrrique Martins Dec 28, 2019 11:12
[2019-12-28 11:57] VITALS: BP 102/68
--- NOTE | 2019-12-28 12:11 | General Progress Note ---
Assessment/Plan Problem List: (1) Coffee ground emesis ICD Codes: K92.0 - Hematemesis SNOMED: 55228044 (2) High blood urea nitrogen (BUN) ICD Codes: R79.9 - Abnormal finding of blood chemistry, unspecified SNOMED: 450357441, 507858052 (3) High serum creatine ICD Codes: R79.89 - Other specified abnormal findings of blood chemistry SNOMED: 393396034, 454636091 (4) DKA (diabetic ketoacidoses) ICD Codes: E11.10 - Type 2 diabetes mellitus with ketoacidosis without coma SNOMED: 132812038, 87778937 Qualifiers: Qualified Codes: E13.11 - Other specified diabetes mellitus with ketoacidosis with coma (5) Altered mental status ICD Codes: R41.82 - Altered mental status, unspecified SNOMED: 572217568, 63257032 Qualifiers: Qualified Codes: R41.82 - Altered mental status, unspecified (6) Cardiac arrest ICD Codes: I46.9 - Cardiac arrest, cause unspecified SNOMED: 855428351 (7) Respiratory distress ICD Codes: R06.03 - Acute respiratory distress SNOMED: 120977711 Assessment/Plan: s/p 2 units prbc in this admission positive stool ob x1 ppi iv BID monitor H&H transfuse to keep HGB above 7.5 improved respiratory status now on 3 lit o2 PEG was canceled by anesthesia last week patient pulled her NGT repeat swallow still pending plan PEG if fails Subjective ROS Limited/Unobtainable: Yes Allergies: Coded Allergies: No Known Allergies (Unverified , 12/11/19) Objective Last 24 Hour Vital Signs Date Time Temp Pulse Resp B/P (MAP) Pulse Ox O2 Delivery O2 Flow Rate FiO2 12/28/19 11:57 96.6 109 20 102/68 (79) 92 12/28/19 09:00 Nasal Cannula 3.0 12/28/19 08:00 97.5 90 21 97/68 (78) 100 12/28/19 04:00 97.2 93 22 94/66 (75) 100 12/28/19 00:00 97.7 99 22 99/69 (79) 100 12/27/19 21:38 Nasal Cannula 3.0 12/27/19 20:00 97.7 99 22 105/68 (80) 100 12/27/19 19:56 96 Nasal Cannula 4.0 36 12/27/19 16:00 98.1 98 22 100/63 (75) 97 Intake and Output 12/27/19 12/28/19 19:00 07:00 Intake Total 320 ml Output Total 600 ml 450 ml Balance -600 ml -130 ml IV Total 320 ml Output Urine Total 600 ml 450 ml # Bowel Movements 1 1 Height (Feet): 5 Height (Inches): 4.00 Weight (Pounds): 161 General Appearance: alert EENT: normal ENT inspection Neck: supple Cardiovascular: normal rate Respiratory/Chest: decreased breath sounds Abdomen: soft, hypoactive bowel sounds, tender Extremities: non-tender Maykel Stephen MD Dec 28, 2019 12:11
--- NOTE | 2019-12-28 12:52 | Cardiac Electrophysiology PN ---
Assessment/Plan Assessment/Plan 1. S/P Septic shock. Off pressors. EF 60%. EKG shows sinus tachy with no acute ST-T wave abnormalities. 2. S/P Respiratory failure, Extubated. On Face Mask 3. Hypotension. Resolved 4. Coffee-ground emesis. S/P 2 units of PRBC 5. S/P Diabetic ketoacidosis 6. Persistent hypokalemia. Improved on aldactone 25 bid and KCL po by Dr Ventura 7. Failed swallow eval. PEG was canceled by anesthesia last week. Patient pulled her NGT Repeat swallow still pending, plan PEG if fails by Dr. Zafar HINOJOSA RN Subjective Subjective Two covids are negative on 12/13 and 12/18. Off isolation. PEG cancelled by anesthesia. Objective Last 24 Hour Vital Signs Date Time Temp Pulse Resp B/P (MAP) Pulse Ox O2 Delivery O2 Flow Rate FiO2 12/28/19 11:57 96.6 109 20 102/68 (79) 92 12/28/19 09:00 Nasal Cannula 3.0 12/28/19 08:00 97.5 90 21 97/68 (78) 100 12/28/19 04:00 97.2 93 22 94/66 (75) 100 12/28/19 00:00 97.7 99 22 99/69 (79) 100 12/27/19 21:38 Nasal Cannula 3.0 12/27/19 20:00 97.7 99 22 105/68 (80) 100 12/27/19 19:56 96 Nasal Cannula 4.0 36 12/27/19 16:00 98.1 98 22 100/63 (75) 97 Intake and Output 12/27/19 12/28/19 19:00 07:00 Intake Total 320 ml Output Total 600 ml 450 ml Balance -600 ml -130 ml IV Total 320 ml Output Urine Total 600 ml 450 ml # Bowel Movements 1 1 Objective HEAD AND NECK: No JVD. NGT feeding LUNGS: Coarse rhonchi. CARDIOVASCULAR: Irregular S1-S2 and tachycardic. ABDOMEN: Soft. EXTREMITIES: No pitting edema. Gerardo Dyer MD Dec 28, 2019 12:52
--- NOTE | 2019-12-28 13:00 | General Progress Note ---
Assessment/Plan Problem List: (1) DKA (diabetic ketoacidoses) (2) Cardiac arrest (3) Coffee ground emesis (4) Abnormal TSH Assessment/Plan: hold Levemir for NPO status continue Novolog sliding scale every 6 hours TSH normalized Subjective ROS Limited/Unobtainable: Yes Allergies: Coded Allergies: No Known Allergies (Unverified , 12/11/19) Subjective events noted - interval notes reviewed glucose values are stable levemir has been on hold Item Value Date Time Bedside Blood Glucose 123 mg/dl H 12/28/19 1200 Bedside Blood Glucose 154 mg/dl H 12/28/19 0550 Bedside Blood Glucose 144 mg/dl H 12/27/19 2339 Bedside Blood Glucose 130 mg/dl H 12/27/19 2047 Bedside Blood Glucose 130 mg/dl H 12/27/19 1800 Bedside Blood Glucose 119 mg/dl 12/27/19 1200 Objective Last 24 Hour Vital Signs Date Time Temp Pulse Resp B/P (MAP) Pulse Ox O2 Delivery O2 Flow Rate FiO2 12/28/19 11:57 96.6 109 20 102/68 (79) 92 12/28/19 09:00 Nasal Cannula 3.0 12/28/19 08:00 97.5 90 21 97/68 (78) 100 12/28/19 04:00 97.2 93 22 94/66 (75) 100 12/28/19 00:00 97.7 99 22 99/69 (79) 100 12/27/19 21:38 Nasal Cannula 3.0 12/27/19 20:00 97.7 99 22 105/68 (80) 100 12/27/19 19:56 96 Nasal Cannula 4.0 36 12/27/19 16:00 98.1 98 22 100/63 (75) 97 Intake and Output 12/27/19 12/28/19 19:00 07:00 Intake Total 320 ml Output Total 600 ml 450 ml Balance -600 ml -130 ml IV Total 320 ml Output Urine Total 600 ml 450 ml # Bowel Movements 1 1 Height (Feet): 5 Height (Inches): 4.00 Weight (Pounds): 161 General Appearance: no apparent distress Neck: normal alignment Cardiovascular: normal rate Respiratory/Chest: lungs clear Abdomen: normal bowel sounds Pelvis: normal external exam Objective Current Medications Medications (Trade) Dose Ordered Sig/Esequiel Route PRN Reason Start Time Stop Time Status Last Admin Dose Admin Acetaminophen (Tylenol) 650 mg Q4H PRN GT Mild Pain (Pain Scale 1-3) 12/22/19 19:00 01/10/20 18:59 12/25/19 18:00 Acetaminophen (Tylenol) 650 mg Q4H PRN RECTAL Mild Pain (Pain Scale 1-3) 12/22/19 19:00 01/10/20 18:59 Chlorhexidine Gluconate (Bijal-Hex 2%) 1 applic DAILY@2000 TOPIC 12/22/19 20:00 03/11/20 19:59 12/27/19 19:54 Dextrose (Dextrose 50%) 25 ml Q30M PRN IV Hypoglycemia 12/22/19 19:00 03/12/20 01:59 Dextrose (Dextrose 50%) 50 ml Q30M PRN IV Hypoglycemia 12/22/19 19:00 03/12/20 01:59 Dextrose/Sodium Chloride 1,000 ml @ 40 mls/hr Q24H IV 12/26/19 13:45 01/25/20 13:44 12/27/19 18:17 Insulin Aspart (NovoLOG) Q6HR SUBQ 12/23/19 00:00 03/12/20 04:59 12/28/19 05:50 Insulin Detemir (Levemir) 20 units Q12HR SUBQ 12/23/19 21:00 03/20/20 08:59 12/26/19 20:25 Lactobacillus Acidophilus (Culturelle) 1 tab THREE TIMES A DAY NG 12/23/19 09:00 03/18/20 12:59 12/25/19 17:33 Loperamide HCl (Imodium) 2 mg Q4H PRN ORAL Diarrhea 12/22/19 19:00 01/21/20 18:59 Ondansetron HCl (Zofran) 4 mg Q6H PRN IVP Nausea & Vomiting 12/22/19 19:00 01/10/20 18:59 Pantoprazole (Protonix) 40 mg EVERY 12 HOURS IVP 12/22/19 21:00 01/11/20 08:59 12/28/19 09:18 Potassium Chloride (K-Dur) 40 meq BID ORAL 12/23/19 09:00 03/17/20 08:59 12/25/19 17:33 Spironolactone (Aldactone) 25 mg BID ORAL 12/23/19 09:00 01/17/20 10:59 12/25/19 17:33 Stef Ortega MD Dec 28, 2019 13:00
--- NOTE | 2019-12-28 13:13 | Nephrology Progress Note ---
Assessment/Plan Problem List: (1) DEANDRA (acute kidney injury) Assessment: Resolved (2) Hypotension (3) Cardiac arrest (4) DKA (diabetic ketoacidoses) (5) Respiratory distress (6) Coffee ground emesis (7) Electrolyte imbalance Assessment Acute renal failure which probably is superimposed on chronic kidney disease History of diabetes mellitus, most likely diabetic nephropathy. Presents with diabetic ketoacidosis Acute respiratory failure requiring intubation and mechanical ventilation Aspiration pneumonia, upper GI bleed Proteinuria and severe hypoalbuminemia should rule out nephrotic range proteinuria Anemia Electrolyte imbalances Plan Will check labs tomorrow December 28 Patient due for PEG when cleared by anesthesia Meanwhile continue NG tube feeding Electrolytes seems to be reasonably corrected Previously: Off Reglan as the patient has diarrhea C. difficile negative Patient is doing well post extubation Will replace potassium, magnesium, and phosphorus as needed Previously 2 units of packed RBCs was transfused Hydrate as needed and monitor electrolytes Per orders Previously Monitor renal parameters Avoid nephrotoxic's Anemia work-up Urine studies Keep blood sugar and blood pressure in check Per consultants Discussed with RN Subjective ROS Limited/Unobtainable: No Constitutional: Reports: malaise, weakness Objective Objective Last 24 Hour Vital Signs Date Time Temp Pulse Resp B/P (MAP) Pulse Ox O2 Delivery O2 Flow Rate FiO2 12/28/19 11:57 96.6 109 20 102/68 (79) 92 12/28/19 09:00 Nasal Cannula 3.0 12/28/19 08:00 97.5 90 21 97/68 (78) 100 12/28/19 04:00 97.2 93 22 94/66 (75) 100 12/28/19 00:00 97.7 99 22 99/69 (79) 100 12/27/19 21:38 Nasal Cannula 3.0 12/27/19 20:00 97.7 99 22 105/68 (80) 100 12/27/19 19:56 96 Nasal Cannula 4.0 36 12/27/19 16:00 98.1 98 22 100/63 (75) 97 Intake and Output 12/27/19 12/28/19 19:00 07:00 Intake Total 320 ml Output Total 600 ml 450 ml Balance -600 ml -130 ml IV Total 320 ml Output Urine Total 600 ml 450 ml # Bowel Movements 1 1 No new labs today Height (Feet): 5 Height (Inches): 4.00 Weight (Pounds): 161 General Appearance: no apparent distress Cardiovascular: tachycardia Respiratory/Chest: decreased breath sounds Abdomen: soft Objective No change Don Ventura MD Dec 28, 2019 13:13
[2019-12-28] MEDS: D5 1/2NS 1,000 ML IV SCH ×2 (14:12→23:11)
[2019-12-28 16:00] VITALS: BP 137/77
--- NOTE | 2019-12-28 19:30 | Progress Note ---
DATE: 12/28/2019 SUBJECTIVE: This is a 58-year-old. More awake, comfortable. Failed the swallow evaluation. Patient is waiting for swallow and possible PEG placement. She has a Andrade catheter, we are going to discontinue. Order PT and OT. Patient is physically doing better. PHYSICAL EXAMINATION: VITAL SIGNS: Blood pressure 97/68, pulse 90, no fever. CHEST: Bilateral few crackles. CARDIOVASCULAR: Regular rhythm. ABDOMEN: Soft. EXTREMITIES: No CCE. NEUROLOGICAL: Generalized weakness. LABORATORY DATA: Patient has no labs today. ASSESSMENT: 1. Sepsis. 2. DKA. 3. Generalized weakness. 4. Dysphagia. PLAN: Continue sliding scale, Accu-Chek, Levemir, PT and OT, swallow evaluation. Frank Pinzon M.D. DR: Alanis JOB#: [id number] CC:
[2019-12-28 20:00] VITALS: BP 107/63
[2019-12-28] MEDS: Dyna-Hex 2% Top Sol 2oz TOPIC SCH (20:26)
[2019-12-29] VITALS: BP 124/71
[2019-12-29 04:00] VITALS: BP 100/61
[2019-12-29] MEDS: NovoLOG Insulin Flexpen SUBQ SCH ×4 (06:00→17:10)
--- NOTE | 2019-12-29 07:18 | General Progress Note ---
Assessment/Plan Problem List: (1) DKA (diabetic ketoacidoses) ICD Codes: E11.10 - Type 2 diabetes mellitus with ketoacidosis without coma SNOMED: 431956002, 09124511 Qualifiers: Qualified Codes: E13.11 - Other specified diabetes mellitus with ketoacidosis with coma (2) Cardiac arrest ICD Codes: I46.9 - Cardiac arrest, cause unspecified SNOMED: 823045655 (3) Coffee ground emesis ICD Codes: K92.0 - Hematemesis SNOMED: 70816260 (4) Abnormal TSH ICD Codes: R79.89 - Other specified abnormal findings of blood chemistry SNOMED: 324346531 Assessment/Plan: continue Levemir 20 units bid continue Novolog sliding scale every 6 hours hypoglycemia protocol in order TSH normalized Subjective ROS Limited/Unobtainable: Yes Allergies: Coded Allergies: No Known Allergies (Unverified , 12/11/19) Subjective events noted - interval notes reviewed glucose values are stable Levemir resumed Item Value Date Time Bedside Blood Glucose 112 mg/dl 12/29/19 0623 Bedside Blood Glucose 124 mg/dl H 12/29/19 0015 Bedside Blood Glucose 125 mg/dl H 12/28/19 2027 Bedside Blood Glucose 125 mg/dl H 12/28/19 1728 Bedside Blood Glucose 123 mg/dl H 12/28/19 1200 Bedside Blood Glucose 154 mg/dl H 12/28/19 0550 Bedside Blood Glucose 144 mg/dl H 12/27/19 2339 Objective Last 24 Hour Vital Signs Date Time Temp Pulse Resp B/P (MAP) Pulse Ox O2 Delivery O2 Flow Rate FiO2 12/29/19 04:00 97.0 93 22 100/61 (74) 95 12/29/19 00:00 98.1 103 21 124/71 (88) 95 12/28/19 22:21 Nasal Cannula 3.0 12/28/19 21:02 95 Nasal Cannula 4.0 36 12/28/19 20:00 97.0 100 21 107/63 (78) 95 12/28/19 16:00 97.5 94 18 137/77 (97) 95 12/28/19 11:57 96.6 109 20 102/68 (79) 92 12/28/19 09:00 Nasal Cannula 3.0 12/28/19 08:00 97.5 90 21 97/68 (78) 100 Intake and Output 6/2/20 6/3/20 19:00 07:00 Intake Total 440 ml 280 ml Output Total 600 ml Balance 440 ml -320 ml IV Total 440 ml 280 ml Output Urine Total 600 ml Height (Feet): 5 Height (Inches): 4.00 Weight (Pounds): 161 General Appearance: lethargic Neck: normal alignment Cardiovascular: regular rhythm Respiratory/Chest: decreased breath sounds Abdomen: normal bowel sounds Objective Current Medications Medications (Trade) Dose Ordered Sig/Esequiel Route PRN Reason Start Time Stop Time Status Last Admin Dose Admin Acetaminophen (Tylenol) 650 mg Q4H PRN GT Mild Pain (Pain Scale 1-3) 12/22/19 19:00 01/10/20 18:59 12/25/19 18:00 Acetaminophen (Tylenol) 650 mg Q4H PRN RECTAL Mild Pain (Pain Scale 1-3) 12/22/19 19:00 01/10/20 18:59 Chlorhexidine Gluconate (Bijal-Hex 2%) 1 applic DAILY@2000 TOPIC 12/22/19 20:00 03/11/20 19:59 12/28/19 20:26 Dextrose (Dextrose 50%) 25 ml Q30M PRN IV Hypoglycemia 12/22/19 19:00 03/12/20 01:59 Dextrose (Dextrose 50%) 50 ml Q30M PRN IV Hypoglycemia 12/22/19 19:00 03/12/20 01:59 Dextrose/Sodium Chloride 1,000 ml @ 40 mls/hr Q24H IV 12/26/19 13:45 01/25/20 13:44 12/28/19 23:11 Insulin Aspart (NovoLOG) Q6HR SUBQ 12/23/19 00:00 03/12/20 04:59 12/28/19 05:50 Insulin Detemir (Levemir) 20 units Q12HR SUBQ 12/23/19 21:00 03/20/20 08:59 12/28/19 20:27 Lactobacillus Acidophilus (Culturelle) 1 tab THREE TIMES A DAY NG 12/23/19 09:00 03/18/20 12:59 12/25/19 17:33 Loperamide HCl (Imodium) 2 mg Q4H PRN ORAL Diarrhea 12/22/19 19:00 6/26/20 18:59 Ondansetron HCl (Zofran) 4 mg Q6H PRN IVP Nausea & Vomiting 12/22/19 19:00 01/10/20 18:59 Pantoprazole (Protonix) 40 mg EVERY 12 HOURS IVP 12/22/19 21:00 01/11/20 08:59 12/28/19 20:27 Potassium Chloride (K-Dur) 40 meq BID ORAL 12/23/19 09:00 03/17/20 08:59 12/25/19 17:33 Spironolactone (Aldactone) 25 mg BID ORAL 12/23/19 09:00 01/17/20 10:59 12/25/19 17:33 Stef Ortega MD Dec 29, 2019 07:18
[2019-12-29 07:41] LABS: BASOPHILS % (AUTO) 1.1 % (0.0-2.0); HEMATOCRIT 24.7 % (37.0-47.0); HEMOGLOBIN 8.3 G/DL (12.0-16.0); LYMPHOCYTES % (AUTO) 27.5 % (20.0-45.0); MEAN CORPUSCULAR VOLUME 89 FL (80-99); MONOCYTES % (AUTO) 5.6 % (1.0-10.0); NEUTROPHILS % (AUTO) 62.7 % (45.0-75.0); PLATELET COUNT 439 K/UL (150-450); RED BLOOD COUNT 2.77 M/UL (4.20-5.40); WHITE BLOOD COUNT 10.5 K/UL (4.8-10.8)
[2019-12-29 08:00] VITALS: BP 114/76
[2019-12-29] MEDS: Spironolactone 25mg tab ORAL SCH ×2 (08:02→17:08)
[2019-12-29] MEDS: Lactobacillus-GG tablet NG SCH ×3 (08:02→17:10)
[2019-12-29] MEDS: Levemir Flexpen SUBQ SCH ×2 (08:02→21:23)
[2019-12-29 08:12] LABS: ALANINE AMINOTRANSFERASE 27 U/L (12-78); ALBUMIN 1.6 G/DL (3.4-5.0); ALBUMIN/GLOBULIN RATIO 0.3 (1.0-2.7); ALKALINE PHOSPHATASE 95 U/L (46-116); ANION GAP 8 mmol/L (5-15); ASPARTATE AMINO TRANSFERASE 31 U/L (15-37); BILIRUBIN,TOTAL 0.2 MG/DL (0.2-1.0); BLOOD UREA NITROGEN 19 mg/dL (7-18); CALCIUM 8.8 MG/DL (8.5-10.1); CARBON DIOXIDE 29 MMOL/L (21-32); CHLORIDE 106 MMOL/L (98-107); CREATININE 0.7 MG/DL (0.55-1.30); POTASSIUM 3.2 MMOL/L (3.5-5.1); SODIUM 142 MMOL/L (136-145)
[2019-12-29] MEDS: Pantoprazole Inj IVP SCH ×2 (08:30→21:21)
--- NOTE | 2019-12-29 10:38 | Pulmonology Progress Note ---
Subjective ROS Limited/Unobtainable: Yes Interval Events: Extubated 12/13/19; NGT in place Constitutional: Denies: fever, chills HEENT: Repors: no symptoms Respiratory: Reports: no symptoms Cardiovascular: Reports: no symptoms Gastrointestinal/Abdominal: Denies: nausea, vomiting, diarrhea Genitourinary: Reports: no symptoms Musculoskeletal: Denies: pain Allergies: Coded Allergies: No Known Allergies (Unverified , 12/11/19) All Systems: reviewed and negative except above Objective Last 24 Hour Vital Signs Date Time Temp Pulse Resp B/P (MAP) Pulse Ox O2 Delivery O2 Flow Rate FiO2 12/29/19 08:00 97.9 84 18 114/76 (89) 97 12/29/19 04:00 97.0 93 22 100/61 (74) 95 12/29/19 00:00 98.1 103 21 124/71 (88) 95 12/28/19 22:21 Nasal Cannula 3.0 12/28/19 21:02 95 Nasal Cannula 4.0 36 12/28/19 20:00 97.0 100 21 107/63 (78) 95 12/28/19 16:00 97.5 94 18 137/77 (97) 95 12/28/19 11:57 96.6 109 20 102/68 (79) 92 Intake and Output 12/28/19 12/29/19 19:00 07:00 Intake Total 440 ml 320 ml Output Total 600 ml Balance 440 ml -280 ml IV Total 440 ml 320 ml Output Urine Total 600 ml General Appearance: no acute distress HEENT: normocephalic Respiratory: chest wall non-tender, lungs clear Cardiovascular: normal peripheral pulses, normal rate Abdomen: normal bowel sounds Laboratory Tests 12/29/19 07:10: White Blood Count 10.5, Red Blood Count 2.77L, Hemoglobin 8.3L, Hematocrit 24.7L , Mean Corpuscular Volume 89, Mean Corpuscular Hemoglobin 30.0, Mean Corpuscular Hemoglobin Concent 33.7, Red Cell Distribution Width 13.0, Platelet Count 439, Mean Platelet Volume 5.0L, Neutrophils (%) (Auto) 62.7, Lymphocytes ( %) (Auto) 27.5, Monocytes (%) (Auto) 5.6, Eosinophils (%) (Auto) 3.0, Basophils (%) (Auto) 1.1, Sodium Level 142, Potassium Level 3.2L, Chloride Level 106, Carbon Dioxide Level 29, Anion Gap 8, Blood Urea Nitrogen 19H, Creatinine 0.7, Estimat Glomerular Filtration Rate > 60, Glucose Level 137H, Calcium Level 8.8, Phosphorus Level 4.0, Magnesium Level 1.9, Total Bilirubin 0.2, Aspartate Amino Transf (AST/SGOT) 31, Alanine Aminotransferase (ALT/SGPT) 27, Alkaline Phosphatase 95, C-Reactive Protein, Quantitative 3.1H, Total Protein 7.1, Albumin 1.6L, Globulin 5.5, Albumin/Globulin Ratio 0.3L Current Medications Medications (Trade) Dose Ordered Sig/Esequiel Route PRN Reason Start Time Stop Time Status Last Admin Dose Admin Acetaminophen (Tylenol) 650 mg Q4H PRN GT Mild Pain (Pain Scale 1-3) 12/22/19 19:00 01/10/20 18:59 12/25/19 18:00 Acetaminophen (Tylenol) 650 mg Q4H PRN RECTAL Mild Pain (Pain Scale 1-3) 12/22/19 19:00 01/10/20 18:59 Chlorhexidine Gluconate (Bijal-Hex 2%) 1 applic DAILY@2000 TOPIC 12/22/19 20:00 03/11/20 19:59 12/28/19 20:26 Dextrose (Dextrose 50%) 25 ml Q30M PRN IV Hypoglycemia 12/22/19 19:00 03/12/20 01:59 Dextrose (Dextrose 50%) 50 ml Q30M PRN IV Hypoglycemia 12/22/19 19:00 03/12/20 01:59 Dextrose/Sodium Chloride 1,000 ml @ 40 mls/hr Q24H IV 12/26/19 13:45 01/25/20 13:44 12/28/19 23:11 Insulin Aspart (NovoLOG) Q6HR SUBQ 12/23/19 00:00 03/12/20 04:59 12/28/19 05:50 Insulin Detemir (Levemir) 20 units Q12HR SUBQ 12/23/19 21:00 03/20/20 08:59 12/28/19 20:27 Lactobacillus Acidophilus (Culturelle) 1 tab THREE TIMES A DAY NG 12/23/19 09:00 03/18/20 12:59 12/25/19 17:33 Loperamide HCl (Imodium) 2 mg Q4H PRN ORAL Diarrhea 12/22/19 19:00 01/21/20 18:59 Ondansetron HCl (Zofran) 4 mg Q6H PRN IVP Nausea & Vomiting 12/22/19 19:00 01/10/20 18:59 Pantoprazole (Protonix) 40 mg EVERY 12 HOURS IVP 12/22/19 21:00 01/11/20 08:59 12/29/19 08:30 Potassium Chloride (K-Dur) 40 meq BID ORAL 12/23/19 09:00 03/17/20 08:59 12/25/19 17:33 Spironolactone (Aldactone) 25 mg BID ORAL 12/23/19 09:00 01/17/20 10:59 12/25/19 17:33 Assessment/Plan Assessment/Plan IMPRESSION: 1. DKA. Resolved 2. Upper GI bleed. 3. Respiratory failure. Now extubated 4. Lactic acidosis. DISCUSSION: Continue antibiotics I will continue oxygen, Protonix, DVT prophylaxis. Saturating 95% on 4L/min O2 Await PEG For repeat swallow eval today; pt much more awake Osorio Harris Omar Syed MD Dec 29, 2019 10:38
--- NOTE | 2019-12-29 10:41 | Infectious Diseases Prog Note ---
Assessment/Plan Assessment/Plan antibiotics : none A 1. pneumonia s/p rx COVID 19 test negative 2. Diabetic ketoacidosis resolving 3. Renal failure resolved 4. Leukocytosis resolved 5. fever resolved P 1. observe off antibiotics Subjective Constitutional: Denies: fever, chills Respiratory: Reports: dry cough - decreased; Denies: shortness of breath Gastrointestinal/Abdominal: Denies: nausea, vomiting, diarrhea Musculoskeletal: Denies: pain Allergies: Coded Allergies: No Known Allergies (Unverified , 12/11/19) Objective Vital Signs Last 24 Hour Vital Signs Date Time Temp Pulse Resp B/P (MAP) Pulse Ox O2 Delivery O2 Flow Rate FiO2 12/29/19 08:00 97.9 84 18 114/76 (89) 97 12/29/19 04:00 97.0 93 22 100/61 (74) 95 12/29/19 00:00 98.1 103 21 124/71 (88) 95 12/28/19 22:21 Nasal Cannula 3.0 12/28/19 21:02 95 Nasal Cannula 4.0 36 12/28/19 20:00 97.0 100 21 107/63 (78) 95 12/28/19 16:00 97.5 94 18 137/77 (97) 95 12/28/19 11:57 96.6 109 20 102/68 (79) 92 Height (Feet): 5 Height (Inches): 4.00 Weight (Pounds): 161 Respiratory/Chest: lungs clear Cardiovascular: normal rate, regular rhythm, no gallop/murmur Abdomen: soft, non tender Extremities: no edema Laboratory Tests Test 12/29/19 07:10 White Blood Count 10.5 K/UL (4.8-10.8) Red Blood Count 2.77 M/UL (4.20-5.40) L Hemoglobin 8.3 G/DL (12.0-16.0) L Hematocrit 24.7 % (37.0-47.0) L Mean Corpuscular Volume 89 FL (80-99) Mean Corpuscular Hemoglobin 30.0 PG (27.0-31.0) Mean Corpuscular Hemoglobin Concent 33.7 G/DL (32.0-36.0) Red Cell Distribution Width 13.0 % (11.6-14.8) Platelet Count 439 K/UL (150-450) Mean Platelet Volume 5.0 FL (6.5-10.1) L Neutrophils (%) (Auto) 62.7 % (45.0-75.0) Lymphocytes (%) (Auto) 27.5 % (20.0-45.0) Monocytes (%) (Auto) 5.6 % (1.0-10.0) Eosinophils (%) (Auto) 3.0 % (0.0-3.0) Basophils (%) (Auto) 1.1 % (0.0-2.0) Sodium Level 142 MMOL/L (136-145) Potassium Level 3.2 MMOL/L (3.5-5.1) L Chloride Level 106 MMOL/L (98-107) Carbon Dioxide Level 29 MMOL/L (21-32) Anion Gap 8 mmol/L (5-15) Blood Urea Nitrogen 19 mg/dL (7-18) H Creatinine 0.7 MG/DL (0.55-1.30) Estimat Glomerular Filtration Rate > 60 mL/min (>60) Glucose Level 137 MG/DL (74-106) H Calcium Level 8.8 MG/DL (8.5-10.1) Phosphorus Level 4.0 MG/DL (2.5-4.9) Magnesium Level 1.9 MG/DL (1.8-2.4) Total Bilirubin 0.2 MG/DL (0.2-1.0) Aspartate Amino Transf (AST/SGOT) 31 U/L (15-37) Alanine Aminotransferase (ALT/SGPT) 27 U/L (12-78) Alkaline Phosphatase 95 U/L (46-116) C-Reactive Protein, Quantitative 3.1 mg/dL (0.00-0.90) H Total Protein 7.1 G/DL (6.4-8.2) Albumin 1.6 G/DL (3.4-5.0) L Globulin 5.5 g/dL Albumin/Globulin Ratio 0.3 (1.0-2.7) L Current Medications Medications (Trade) Dose Ordered Sig/Esequiel Route PRN Reason Start Time Stop Time Status Last Admin Dose Admin Acetaminophen (Tylenol) 650 mg Q4H PRN GT Mild Pain (Pain Scale 1-3) 12/22/19 19:00 01/10/20 18:59 12/25/19 18:00 Acetaminophen (Tylenol) 650 mg Q4H PRN RECTAL Mild Pain (Pain Scale 1-3) 12/22/19 19:00 01/10/20 18:59 Chlorhexidine Gluconate (Bijal-Hex 2%) 1 applic DAILY@2000 TOPIC 12/22/19 20:00 03/11/20 19:59 12/28/19 20:26 Dextrose (Dextrose 50%) 25 ml Q30M PRN IV Hypoglycemia 12/22/19 19:00 03/12/20 01:59 Dextrose (Dextrose 50%) 50 ml Q30M PRN IV Hypoglycemia 12/22/19 19:00 03/12/20 01:59 Dextrose/Sodium Chloride 1,000 ml @ 40 mls/hr Q24H IV 12/26/19 13:45 01/25/20 13:44 12/28/19 23:11 Insulin Aspart (NovoLOG) Q6HR SUBQ 12/23/19 00:00 03/12/20 04:59 12/28/19 05:50 Insulin Detemir (Levemir) 20 units Q12HR SUBQ 12/23/19 21:00 03/20/20 08:59 12/28/19 20:27 Lactobacillus Acidophilus (Culturelle) 1 tab THREE TIMES A DAY NG 12/23/19 09:00 03/18/20 12:59 12/25/19 17:33 Loperamide HCl (Imodium) 2 mg Q4H PRN ORAL Diarrhea 12/22/19 19:00 01/21/20 18:59 Ondansetron HCl (Zofran) 4 mg Q6H PRN IVP Nausea & Vomiting 12/22/19 19:00 01/10/20 18:59 Pantoprazole (Protonix) 40 mg EVERY 12 HOURS IVP 12/22/19 21:00 01/11/20 08:59 12/29/19 08:30 Potassium Chloride (K-Dur) 40 meq BID ORAL 12/23/19 09:00 03/17/20 08:59 12/25/19 17:33 Spironolactone (Aldactone) 25 mg BID ORAL 12/23/19 09:00 01/17/20 10:59 12/25/19 17:33 Eden Salvador MD Dec 29, 2019 10:41
[2019-12-29 11:47] VITALS: BP 104/65
--- NOTE | 2019-12-29 12:19 | General Progress Note ---
Assessment/Plan Problem List: (1) Coffee ground emesis ICD Codes: K92.0 - Hematemesis SNOMED: 18435075 (2) High blood urea nitrogen (BUN) ICD Codes: R79.9 - Abnormal finding of blood chemistry, unspecified SNOMED: 811700078, 416283492 (3) High serum creatine ICD Codes: R79.89 - Other specified abnormal findings of blood chemistry SNOMED: 675814786, 173374022 (4) DKA (diabetic ketoacidoses) ICD Codes: E11.10 - Type 2 diabetes mellitus with ketoacidosis without coma SNOMED: 219439715, 45650393 Qualifiers: Qualified Codes: E13.11 - Other specified diabetes mellitus with ketoacidosis with coma (5) Altered mental status ICD Codes: R41.82 - Altered mental status, unspecified SNOMED: 564456345, 13775930 Qualifiers: Qualified Codes: R41.82 - Altered mental status, unspecified (6) Cardiac arrest ICD Codes: I46.9 - Cardiac arrest, cause unspecified SNOMED: 460699938 (7) Respiratory distress ICD Codes: R06.03 - Acute respiratory distress SNOMED: 504807934 Assessment/Plan: s/p 2 units prbc in this admission positive stool ob x1 ppi iv BID monitor H&H transfuse to keep HGB above 7.5 improved respiratory status now on 3 lit o2 PEG was canceled by anesthesia last week patient pulled her NGT repeat swallow still pending plan PEG if fails Subjective ROS Limited/Unobtainable: No Allergies: Coded Allergies: No Known Allergies (Unverified , 12/11/19) Objective Last 24 Hour Vital Signs Date Time Temp Pulse Resp B/P (MAP) Pulse Ox O2 Delivery O2 Flow Rate FiO2 12/29/19 11:47 97.7 95 18 104/65 (78) 95 12/29/19 08:00 97.9 84 18 114/76 (89) 97 12/29/19 04:00 97.0 93 22 100/61 (74) 95 12/29/19 00:00 98.1 103 21 124/71 (88) 95 12/28/19 22:21 Nasal Cannula 3.0 12/28/19 21:02 95 Nasal Cannula 4.0 36 12/28/19 20:00 97.0 100 21 107/63 (78) 95 12/28/19 16:00 97.5 94 18 137/77 (97) 95 Intake and Output 12/28/19 12/29/19 19:00 07:00 Intake Total 440 ml 320 ml Output Total 600 ml Balance 440 ml -280 ml IV Total 440 ml 320 ml Output Urine Total 600 ml Laboratory Tests 12/29/19 07:10: White Blood Count 10.5, Red Blood Count 2.77L, Hemoglobin 8.3L, Hematocrit 24.7L , Mean Corpuscular Volume 89, Mean Corpuscular Hemoglobin 30.0, Mean Corpuscular Hemoglobin Concent 33.7, Red Cell Distribution Width 13.0, Platelet Count 439, Mean Platelet Volume 5.0L, Neutrophils (%) (Auto) 62.7, Lymphocytes ( %) (Auto) 27.5, Monocytes (%) (Auto) 5.6, Eosinophils (%) (Auto) 3.0, Basophils (%) (Auto) 1.1, Sodium Level 142, Potassium Level 3.2L, Chloride Level 106, Carbon Dioxide Level 29, Anion Gap 8, Blood Urea Nitrogen 19H, Creatinine 0.7, Estimat Glomerular Filtration Rate > 60, Glucose Level 137H, Calcium Level 8.8, Phosphorus Level 4.0, Magnesium Level 1.9, Total Bilirubin 0.2, Aspartate Amino Transf (AST/SGOT) 31, Alanine Aminotransferase (ALT/SGPT) 27, Alkaline Phosphatase 95, C-Reactive Protein, Quantitative 3.1H, Total Protein 7.1, Albumin 1.6L, Globulin 5.5, Albumin/Globulin Ratio 0.3L Height (Feet): 5 Height (Inches): 4.00 Weight (Pounds): 161 General Appearance: alert EENT: normal ENT inspection Neck: supple Cardiovascular: normal rate Respiratory/Chest: decreased breath sounds Abdomen: normal bowel sounds, non tender, soft Extremities: non-tender Maykel Stephen MD Dec 29, 2019 12:19
--- NOTE | 2019-12-29 12:49 | Nephrology Progress Note ---
Assessment/Plan Problem List: (1) DEANDRA (acute kidney injury) Assessment: Resolved (2) Hypotension (3) Cardiac arrest (4) DKA (diabetic ketoacidoses) (5) Respiratory distress (6) Coffee ground emesis (7) Electrolyte imbalance Assessment Acute renal failure which probably is superimposed on chronic kidney disease History of diabetes mellitus, most likely diabetic nephropathy. Presents with diabetic ketoacidosis Acute respiratory failure requiring intubation and mechanical ventilation Aspiration pneumonia, upper GI bleed Proteinuria and severe hypoalbuminemia should rule out nephrotic range proteinuria Anemia Electrolyte imbalances Plan Patient is due for ST eval again to to assess for G-tube insertion Potassium chloride IV supplement Today's labs reviewed Previously: Off Reglan as the patient has diarrhea C. difficile negative Patient is doing well post extubation Will replace potassium, magnesium, and phosphorus as needed Previously 2 units of packed RBCs was transfused Hydrate as needed and monitor electrolytes Per orders Previously Monitor renal parameters Avoid nephrotoxic's Anemia work-up Urine studies Keep blood sugar and blood pressure in check Per consultants Discussed with RN Subjective ROS Limited/Unobtainable: No Constitutional: Reports: malaise Objective Objective Last 24 Hour Vital Signs Date Time Temp Pulse Resp B/P (MAP) Pulse Ox O2 Delivery O2 Flow Rate FiO2 12/29/19 11:47 97.7 95 18 104/65 (78) 95 12/29/19 08:00 97.9 84 18 114/76 (89) 97 12/29/19 04:00 97.0 93 22 100/61 (74) 95 12/29/19 00:00 98.1 103 21 124/71 (88) 95 12/28/19 22:21 Nasal Cannula 3.0 12/28/19 21:02 95 Nasal Cannula 4.0 36 12/28/19 20:00 97.0 100 21 107/63 (78) 95 12/28/19 16:00 97.5 94 18 137/77 (97) 95 Intake and Output 12/28/19 12/29/19 19:00 07:00 Intake Total 440 ml 320 ml Output Total 600 ml Balance 440 ml -280 ml IV Total 440 ml 320 ml Output Urine Total 600 ml Laboratory Tests 12/29/19 07:10: White Blood Count 10.5, Red Blood Count 2.77L, Hemoglobin 8.3L, Hematocrit 24.7L , Mean Corpuscular Volume 89, Mean Corpuscular Hemoglobin 30.0, Mean Corpuscular Hemoglobin Concent 33.7, Red Cell Distribution Width 13.0, Platelet Count 439, Mean Platelet Volume 5.0L, Neutrophils (%) (Auto) 62.7, Lymphocytes ( %) (Auto) 27.5, Monocytes (%) (Auto) 5.6, Eosinophils (%) (Auto) 3.0, Basophils (%) (Auto) 1.1, Sodium Level 142, Potassium Level 3.2L, Chloride Level 106, Carbon Dioxide Level 29, Anion Gap 8, Blood Urea Nitrogen 19H, Creatinine 0.7, Estimat Glomerular Filtration Rate > 60, Glucose Level 137H, Calcium Level 8.8, Phosphorus Level 4.0, Magnesium Level 1.9, Total Bilirubin 0.2, Aspartate Amino Transf (AST/SGOT) 31, Alanine Aminotransferase (ALT/SGPT) 27, Alkaline Phosphatase 95, C-Reactive Protein, Quantitative 3.1H, Total Protein 7.1, Albumin 1.6L, Globulin 5.5, Albumin/Globulin Ratio 0.3L Height (Feet): 5 Height (Inches): 4.00 Weight (Pounds): 161 General Appearance: no apparent distress Objective No change Don Ventura MD Dec 29, 2019 12:49
--- NOTE | 2019-12-29 13:57 | Cardiac Electrophysiology PN ---
Assessment/Plan Assessment/Plan 1. S/P Septic shock. Off pressors. EF 60%. EKG shows sinus tachy with no acute ST-T wave abnormalities. 2. S/P Respiratory failure, Extubated. 3. Hypotension. Resolved 4. Coffee-ground emesis. S/P 2 units of PRBC 5. S/P Diabetic ketoacidosis 6. Persistent hypokalemia. Improved on aldactone 25 bid and KCL po by Dr Ventura 7. Failed swallow eval. PEG was canceled by anesthesia last week. Patient pulled her NGT Repeat swallow pending, plan PEG if fails by Dr. Zafar HINOJOSA RN Subjective Subjective Two covids are negative on 12/13 and 12/18. Off isolation. PEG cancelled by anesthesia.Repeat swallow eval pending Objective Last 24 Hour Vital Signs Date Time Temp Pulse Resp B/P (MAP) Pulse Ox O2 Delivery O2 Flow Rate FiO2 12/29/19 11:47 97.7 95 18 104/65 (78) 95 12/29/19 08:00 97.9 84 18 114/76 (89) 97 12/29/19 04:00 97.0 93 22 100/61 (74) 95 12/29/19 00:00 98.1 103 21 124/71 (88) 95 12/28/19 22:21 Nasal Cannula 3.0 12/28/19 21:02 95 Nasal Cannula 4.0 36 12/28/19 20:00 97.0 100 21 107/63 (78) 95 12/28/19 16:00 97.5 94 18 137/77 (97) 95 Intake and Output 12/28/19 12/29/19 18:59 06:59 Intake Total 480 ml 280 ml Output Total 600 ml Balance 480 ml -320 ml IV Total 480 ml 280 ml Output Urine Total 600 ml Laboratory Tests Test 12/29/19 07:10 White Blood Count 10.5 K/UL (4.8-10.8) Red Blood Count 2.77 M/UL (4.20-5.40) L Hemoglobin 8.3 G/DL (12.0-16.0) L Hematocrit 24.7 % (37.0-47.0) L Mean Corpuscular Volume 89 FL (80-99) Mean Corpuscular Hemoglobin 30.0 PG (27.0-31.0) Mean Corpuscular Hemoglobin Concent 33.7 G/DL (32.0-36.0) Red Cell Distribution Width 13.0 % (11.6-14.8) Platelet Count 439 K/UL (150-450) Mean Platelet Volume 5.0 FL (6.5-10.1) L Neutrophils (%) (Auto) 62.7 % (45.0-75.0) Lymphocytes (%) (Auto) 27.5 % (20.0-45.0) Monocytes (%) (Auto) 5.6 % (1.0-10.0) Eosinophils (%) (Auto) 3.0 % (0.0-3.0) Basophils (%) (Auto) 1.1 % (0.0-2.0) Sodium Level 142 MMOL/L (136-145) Potassium Level 3.2 MMOL/L (3.5-5.1) L Chloride Level 106 MMOL/L (98-107) Carbon Dioxide Level 29 MMOL/L (21-32) Anion Gap 8 mmol/L (5-15) Blood Urea Nitrogen 19 mg/dL (7-18) H Creatinine 0.7 MG/DL (0.55-1.30) Estimat Glomerular Filtration Rate > 60 mL/min (>60) Glucose Level 137 MG/DL (74-106) H Calcium Level 8.8 MG/DL (8.5-10.1) Phosphorus Level 4.0 MG/DL (2.5-4.9) Magnesium Level 1.9 MG/DL (1.8-2.4) Total Bilirubin 0.2 MG/DL (0.2-1.0) Aspartate Amino Transf (AST/SGOT) 31 U/L (15-37) Alanine Aminotransferase (ALT/SGPT) 27 U/L (12-78) Alkaline Phosphatase 95 U/L (46-116) C-Reactive Protein, Quantitative 3.1 mg/dL (0.00-0.90) H Total Protein 7.1 G/DL (6.4-8.2) Albumin 1.6 G/DL (3.4-5.0) L Globulin 5.5 g/dL Albumin/Globulin Ratio 0.3 (1.0-2.7) L Objective HEAD AND NECK: No JVD. NGT feeding LUNGS: Coarse rhonchi. CARDIOVASCULAR: Irregular S1-S2 and tachycardic. ABDOMEN: Soft. EXTREMITIES: No pitting edema. Gerardo Dyer MD Dec 29, 2019 13:57
[2019-12-29 16:00] VITALS: BP 110/76
[2019-12-29] MEDS: Acetaminophen 650mg/20.3ml GT PRN (17:43)
[2019-12-29 20:05] VITALS: BP 110/60
--- NOTE | 2019-12-29 21:02 | Surgery Progress Note ---
Surgery Progress Note Subjective Additional Comments no acute events Objective Last 24 Hour Vital Signs Date Time Temp Pulse Resp B/P (MAP) Pulse Ox O2 Delivery O2 Flow Rate FiO2 12/29/19 20:12 95 Nasal Cannula 4.0 36 12/29/19 20:05 97.9 101 20 110/60 (77) 98 12/29/19 18:13 97.3 12/29/19 16:00 97.3 110 19 110/76 (87) 98 12/29/19 11:47 97.7 95 18 104/65 (78) 95 12/29/19 09:00 Nasal Cannula 3.0 12/29/19 08:00 97.9 84 18 114/76 (89) 97 12/29/19 04:00 97.0 93 22 100/61 (74) 95 12/29/19 00:00 98.1 103 21 124/71 (88) 95 12/28/19 22:21 Nasal Cannula 3.0 I&O Intake and Output 12/28/19 12/29/19 19:00 07:00 Intake Total 440 ml 320 ml Output Total 600 ml Balance 440 ml -280 ml IV Total 440 ml 320 ml Output Urine Total 600 ml Dressing: other Wound: other Drains: other Cardiovascular: RSR Respiratory: decreased breath sounds Abdomen: soft, non-tender, present bowel sounds Extremities: no cyanosis Laboratory Tests Test 12/29/19 07:10 White Blood Count 10.5 K/UL (4.8-10.8) Red Blood Count 2.77 M/UL (4.20-5.40) L Hemoglobin 8.3 G/DL (12.0-16.0) L Hematocrit 24.7 % (37.0-47.0) L Mean Corpuscular Volume 89 FL (80-99) Mean Corpuscular Hemoglobin 30.0 PG (27.0-31.0) Mean Corpuscular Hemoglobin Concent 33.7 G/DL (32.0-36.0) Red Cell Distribution Width 13.0 % (11.6-14.8) Platelet Count 439 K/UL (150-450) Mean Platelet Volume 5.0 FL (6.5-10.1) L Neutrophils (%) (Auto) 62.7 % (45.0-75.0) Lymphocytes (%) (Auto) 27.5 % (20.0-45.0) Monocytes (%) (Auto) 5.6 % (1.0-10.0) Eosinophils (%) (Auto) 3.0 % (0.0-3.0) Basophils (%) (Auto) 1.1 % (0.0-2.0) Sodium Level 142 MMOL/L (136-145) Potassium Level 3.2 MMOL/L (3.5-5.1) L Chloride Level 106 MMOL/L (98-107) Carbon Dioxide Level 29 MMOL/L (21-32) Anion Gap 8 mmol/L (5-15) Blood Urea Nitrogen 19 mg/dL (7-18) H Creatinine 0.7 MG/DL (0.55-1.30) Estimat Glomerular Filtration Rate > 60 mL/min (>60) Glucose Level 137 MG/DL (74-106) H Calcium Level 8.8 MG/DL (8.5-10.1) Phosphorus Level 4.0 MG/DL (2.5-4.9) Magnesium Level 1.9 MG/DL (1.8-2.4) Total Bilirubin 0.2 MG/DL (0.2-1.0) Aspartate Amino Transf (AST/SGOT) 31 U/L (15-37) Alanine Aminotransferase (ALT/SGPT) 27 U/L (12-78) Alkaline Phosphatase 95 U/L (46-116) C-Reactive Protein, Quantitative 3.1 mg/dL (0.00-0.90) H Total Protein 7.1 G/DL (6.4-8.2) Albumin 1.6 G/DL (3.4-5.0) L Globulin 5.5 g/dL Albumin/Globulin Ratio 0.3 (1.0-2.7) L Plan Problems: (1) Cardiac arrest (2) DKA (diabetic ketoacidoses) (3) Respiratory distress (4) Altered mental status (5) Coffee ground emesis Assessment & Plan: Coffee-ground emesis concerning for GI bleed. Transfuse PRBC now stable. No acute active bleeding noted. Discussed with GI. Will follow with recommendations hold on acute surgical intervention MBSS with 2L nasal cannula. RR appears slightly elevated. Patient given PO trials barium liquids in various consistencies. INITIAL RESULTS: Patient presenting with moderate to moderately severe oropharyngeal dysphagia. Initial review of images reveals the following: -Thin Liquids: Radiographic evidence of penetration and trace aspiration. -[place] Thick: Radiographic evidence of penetration and trace aspiration. -Honey Thick: Radiographic evidence of penetration and suspected aspiration ( view limited by Patient positioning). TRIAL TX: Attempted the following compensatory strategies: Double swallow, chin tuck, effortful swallow, and throat clear/re-swallow; No change in swallowing function/safety. Trials were ceased as Patient was presenting with increasingly wet vocal quality , ongoing coughing which appears wet, RR continued to appear high, and recurrent penetration and trace aspiration. At this time, MD to consider alternative method for terminologist nutrition/ hydration and medication management as Patient's swallow continues to be inefficient and Patient presents with radiographic evidence of penetration and/ or aspiration across all consistencies. Pending PEG (6) High serum creatine (7) High blood urea nitrogen (BUN) (8) Abnormal TSH (9) DEANDRA (acute kidney injury) (10) Hypotension (11) Electrolyte imbalance (12) Hyperkalemia (13) Deep tissue injury Assessment & Plan: Patient identified to have a sacral deep tissue injury. No areas of open skin. No signs of acute active infection. Patient critically ill intensive care unit on support slowly making a recovery. Will make all times prevention as well as initiate care plan for healing. Turn every 2 hours. Skin protectant OPTi foam dressing. Offload heels with pillows. Will monitor closely. Great nursing care being provided. Nutritional optimization upper lip eschar 3cm x 0.5 superficial healing DAILY ESTIMATED NEEDS: Needs based on DM, pulmonary 65.5kg 25-30 kcals/kg 5135-3279 total kcals 1-1.5 g protein/kg 66-98 g total protein 25-30 mL/kg 2195-9867 total fluid mLs NUTRITION DIAGNOSIS: Swallowing difficulty r/t Cardiopulmonary arrest as evidenced by pt now orally intubated, ICU, adm w/ DKA, now on pressor support x3- now s/p extubation, pending [employer] eval. CURRENT TF: NPO PO DIET RECOMMENDATIONS: CCHO MED DIET/ TEXTURE PER [employer]ING ADDITIONAL RECOMMENDATIONS: 1) Diet recs as above, [employer] eval pending 2) Maintain calibrated bed scale wts 3) Replete lytes as needed 4) Add Glucerna w/ poor po intake Enrrique Martins Dec 29, 2019 21:02
[2019-12-29] MEDS: Dyna-Hex 2% Top Sol 2oz TOPIC SCH (21:21)
--- NOTE | 2019-12-29 23:45 | Progress Note ---
DATE: 12/29/2019 SUBJECTIVE: This is a 59-year-old female, more awake, alert. She passed the swallow evaluation diet. PHYSICAL EXAMINATION: VITAL SIGNS: Blood pressure 104/65, pulse 95, no fever. CHEST: Bilateral decreased breath sounds. CARDIOVASCULAR: Regular rhythm. ABDOMEN: Soft. EXTREMITIES: CCE. LABORATORY DATA: White counts are 11,000 and hemoglobin 8.3. Chemistry panel, BUN 19, creatinine 0.7, and potassium 3.2. ASSESSMENT: 1. Hypokalemia. 2. DKA. 3. Dysphagia has improved. 4. Aspiration pneumonia. PLAN: Continue antibiotic. Continue bronchodilator treatments. The patient is to continue PPI, PT, and OT. Discussed with charge nurse. Frank Pinzon M.D. DR: TRACE JOB#: [id number] CC:
[2019-12-29] MEDS: D5 1/2NS 1,000 ML IV SCH (23:50)
[2019-12-30] VITALS: BP 99/62
[2019-12-30 04:00] VITALS: BP 111/66
[2019-12-30] MEDS: NovoLOG Insulin Flexpen SUBQ SCH ×3 (05:36→12:00)
--- NOTE | 2019-12-30 07:15 | General Progress Note ---
Assessment/Plan Problem List: (1) DKA (diabetic ketoacidoses) ICD Codes: E11.10 - Type 2 diabetes mellitus with ketoacidosis without coma SNOMED: 051245469, 18714119 Qualifiers: Qualified Codes: E13.11 - Other specified diabetes mellitus with ketoacidosis with coma (2) Cardiac arrest ICD Codes: I46.9 - Cardiac arrest, cause unspecified SNOMED: 873563361 (3) Coffee ground emesis ICD Codes: K92.0 - Hematemesis SNOMED: 21804527 (4) Abnormal TSH ICD Codes: R79.89 - Other specified abnormal findings of blood chemistry SNOMED: 031215422 Assessment/Plan: reduce Levemir to 12 units bid continue Novolog sliding scale every 6 hours hypoglycemia protocol in order TSH normalized Subjective ROS Limited/Unobtainable: Yes Allergies: Coded Allergies: No Known Allergies (Unverified , 12/11/19) Subjective events noted - interval notes reviewed glucose values are stable insulin requirement has diminished Item Value Date Time Bedside Blood Glucose 121 mg/dl H 12/30/19 0538 Bedside Blood Glucose 120 mg/dl 12/30/19 0000 Bedside Blood Glucose 167 mg/dl H 12/29/19 2123 Bedside Blood Glucose 99 mg/dl 12/29/19 1800 Bedside Blood Glucose 101 mg/dl 12/29/19 1208 Bedside Blood Glucose 112 mg/dl 12/29/19 0802 Objective Last 24 Hour Vital Signs Date Time Temp Pulse Resp B/P (MAP) Pulse Ox O2 Delivery O2 Flow Rate FiO2 12/30/19 04:00 98.0 96 19 111/66 (81) 98 12/30/19 00:00 98.3 100 20 99/62 (74) 96 12/29/19 21:00 Nasal Cannula 3.0 12/29/19 20:12 95 Nasal Cannula 4.0 36 12/29/19 20:05 97.9 101 20 110/60 (77) 98 12/29/19 18:13 97.3 12/29/19 16:00 97.3 110 19 110/76 (87) 98 12/29/19 11:47 97.7 95 18 104/65 (78) 95 12/29/19 09:00 Nasal Cannula 3.0 12/29/19 08:00 97.9 84 18 114/76 (89) 97 Intake and Output 12/29/19 12/30/19 19:00 07:00 Intake Total 740 ml 440 ml Output Total 450 ml Balance 740 ml -10 ml Intake Oral 120 ml IV Total 620 ml 440 ml Output Urine Total 450 ml # Voids 1 Height (Feet): 5 Height (Inches): 4.00 Weight (Pounds): 127 General Appearance: lethargic Neck: normal alignment Cardiovascular: normal rate Respiratory/Chest: decreased breath sounds Abdomen: normal bowel sounds Objective Current Medications Medications (Trade) Dose Ordered Sig/Esequiel Route PRN Reason Start Time Stop Time Status Last Admin Dose Admin Acetaminophen (Tylenol) 650 mg Q4H PRN GT Mild Pain (Pain Scale 1-3) 12/22/19 19:00 01/10/20 18:59 12/29/19 17:43 Acetaminophen (Tylenol) 650 mg Q4H PRN RECTAL Mild Pain (Pain Scale 1-3) 12/22/19 19:00 01/10/20 18:59 Chlorhexidine Gluconate (Bijal-Hex 2%) 1 applic DAILY@2000 TOPIC 12/22/19 20:00 03/11/20 19:59 12/29/19 21:21 Dextrose (Dextrose 50%) 25 ml Q30M PRN IV Hypoglycemia 12/22/19 19:00 03/12/20 01:59 Dextrose (Dextrose 50%) 50 ml Q30M PRN IV Hypoglycemia 12/22/19 19:00 03/12/20 01:59 Dextrose/Sodium Chloride 1,000 ml @ 40 mls/hr Q24H IV 12/26/19 13:45 01/25/20 13:44 12/29/19 23:50 Insulin Aspart (NovoLOG) Q6HR SUBQ 12/23/19 00:00 03/12/20 04:59 12/28/19 05:50 Insulin Detemir (Levemir) 20 units Q12HR SUBQ 12/23/19 21:00 03/20/20 08:59 12/29/19 21:23 Lactobacillus Acidophilus (Culturelle) 1 tab THREE TIMES A DAY NG 12/23/19 09:00 03/18/20 12:59 12/29/19 17:10 Loperamide HCl (Imodium) 2 mg Q4H PRN ORAL Diarrhea 12/22/19 19:00 01/21/20 18:59 Ondansetron HCl (Zofran) 4 mg Q6H PRN IVP Nausea & Vomiting 12/22/19 19:00 01/10/20 18:59 Pantoprazole (Protonix) 40 mg EVERY 12 HOURS IVP 12/22/19 21:00 01/11/20 08:59 12/29/19 21:21 Potassium Chloride (K-Dur) 40 meq BID ORAL 12/23/19 09:00 03/17/20 08:59 12/29/19 17:10 Spironolactone (Aldactone) 25 mg BID ORAL 12/23/19 09:00 01/17/20 10:59 12/25/19 17:33 Stef Ortega MD Dec 30, 2019 07:15
[2019-12-30 08:00] VITALS: BP 107/70
[2019-12-30] MEDS: Pantoprazole Inj IVP SCH (08:42)
[2019-12-30] MEDS: Lactobacillus-GG tablet NG SCH ×2 (08:44→13:27)
[2019-12-30] MEDS: Spironolactone 25mg tab ORAL SCH (08:44)
[2019-12-30] MEDS ORDERED: Levemir Flexpen SUBQ SCH (09:00)
--- NOTE | 2019-12-30 09:42 | Pulmonology Progress Note ---
Subjective ROS Limited/Unobtainable: Yes Interval Events: Extubated 12/13/19; PO diet advised by ST Constitutional: Denies: fever, chills HEENT: Repors: no symptoms Respiratory: Reports: no symptoms Cardiovascular: Reports: no symptoms Gastrointestinal/Abdominal: Denies: nausea, vomiting, diarrhea Genitourinary: Reports: no symptoms Musculoskeletal: Denies: pain Allergies: Coded Allergies: No Known Allergies (Unverified , 12/11/19) All Systems: reviewed and negative except above Objective Last 24 Hour Vital Signs Date Time Temp Pulse Resp B/P (MAP) Pulse Ox O2 Delivery O2 Flow Rate FiO2 12/30/19 08:00 97.7 81 18 107/70 (82) 97 12/30/19 04:00 98.0 96 19 111/66 (81) 98 12/30/19 00:00 98.3 100 20 99/62 (74) 96 12/29/19 21:00 Nasal Cannula 3.0 12/29/19 20:12 95 Nasal Cannula 4.0 36 12/29/19 20:05 97.9 101 20 110/60 (77) 98 12/29/19 18:13 97.3 12/29/19 16:00 97.3 110 19 110/76 (87) 98 12/29/19 11:47 97.7 95 18 104/65 (78) 95 Intake and Output 12/29/19 12/30/19 19:00 07:00 Intake Total 740 ml 440 ml Output Total 450 ml Balance 740 ml -10 ml Intake Oral 120 ml IV Total 620 ml 440 ml Output Urine Total 450 ml # Voids 1 General Appearance: no acute distress HEENT: normocephalic Respiratory: chest wall non-tender, lungs clear Cardiovascular: normal peripheral pulses, normal rate Abdomen: normal bowel sounds Current Medications Medications (Trade) Dose Ordered Sig/Esequiel Route PRN Reason Start Time Stop Time Status Last Admin Dose Admin Acetaminophen (Tylenol) 650 mg Q4H PRN GT Mild Pain (Pain Scale 1-3) 12/22/19 19:00 01/10/20 18:59 12/29/19 17:43 Acetaminophen (Tylenol) 650 mg Q4H PRN RECTAL Mild Pain (Pain Scale 1-3) 12/22/19 19:00 01/10/20 18:59 Chlorhexidine Gluconate (Bijal-Hex 2%) 1 applic DAILY@2000 TOPIC 12/22/19 20:00 03/11/20 19:59 12/29/19 21:21 Dextrose (Dextrose 50%) 25 ml Q30M PRN IV Hypoglycemia 12/22/19 19:00 03/12/20 01:59 Dextrose (Dextrose 50%) 50 ml Q30M PRN IV Hypoglycemia 12/22/19 19:00 03/12/20 01:59 Dextrose/Sodium Chloride 1,000 ml @ 40 mls/hr Q24H IV 12/26/19 13:45 01/25/20 13:44 12/29/19 23:50 Insulin Aspart (NovoLOG) Q6HR SUBQ 12/23/19 00:00 03/12/20 04:59 12/28/19 05:50 Insulin Detemir (Levemir) 12 units Q12HR SUBQ 12/30/19 09:00 03/20/20 08:59 12/30/19 08:49 Lactobacillus Acidophilus (Culturelle) 1 tab THREE TIMES A DAY NG 12/23/19 09:00 03/18/20 12:59 12/30/19 08:44 Loperamide HCl (Imodium) 2 mg Q4H PRN ORAL Diarrhea 12/22/19 19:00 01/21/20 18:59 Ondansetron HCl (Zofran) 4 mg Q6H PRN IVP Nausea & Vomiting 12/22/19 19:00 01/10/20 18:59 Pantoprazole (Protonix) 40 mg EVERY 12 HOURS IVP 12/22/19 21:00 01/11/20 08:59 12/30/19 08:42 Potassium Chloride (K-Dur) 40 meq BID ORAL 12/23/19 09:00 03/17/20 08:59 12/30/19 08:44 Spironolactone (Aldactone) 25 mg BID ORAL 12/23/19 09:00 01/17/20 10:59 12/30/19 08:44 Assessment/Plan Assessment/Plan IMPRESSION: 1. DKA. Resolved 2. Upper GI bleed. 3. Respiratory failure. Now extubated 4. Lactic acidosis. DISCUSSION: Continue antibiotics I will continue oxygen, Protonix, DVT prophylaxis. Saturating 95% on 2-3L/min O2 Modified diet per [facility] planning to SNF? Osorio Harris Omar Syed MD Dec 30, 2019 09:42
--- NOTE | 2019-12-30 09:48 | General Progress Note ---
Assessment/Plan Problem List: (1) Coffee ground emesis ICD Codes: K92.0 - Hematemesis SNOMED: 33309173 (2) High blood urea nitrogen (BUN) ICD Codes: R79.9 - Abnormal finding of blood chemistry, unspecified SNOMED: 314212101, 948832373 (3) High serum creatine ICD Codes: R79.89 - Other specified abnormal findings of blood chemistry SNOMED: 733612550, 729784549 (4) DKA (diabetic ketoacidoses) ICD Codes: E11.10 - Type 2 diabetes mellitus with ketoacidosis without coma SNOMED: 630848989, 35376371 Qualifiers: Qualified Codes: E13.11 - Other specified diabetes mellitus with ketoacidosis with coma (5) Altered mental status ICD Codes: R41.82 - Altered mental status, unspecified SNOMED: 242949972, 92208386 Qualifiers: Qualified Codes: R41.82 - Altered mental status, unspecified (6) Cardiac arrest ICD Codes: I46.9 - Cardiac arrest, cause unspecified SNOMED: 581375360 (7) Respiratory distress ICD Codes: R06.03 - Acute respiratory distress SNOMED: 645668860 Assessment/Plan: s/p 2 units prbc in this admission positive stool ob x1 ppi iv BID monitor H&H transfuse to keep HGB above 7.5 improved respiratory status now on 3 lit o2 PEG was canceled by anesthesia last week patient pulled her NGT repeat swallow >>> passed monitor po intake hold peg plans for now Subjective ROS Limited/Unobtainable: No Allergies: Coded Allergies: No Known Allergies (Unverified , 12/11/19) Objective Last 24 Hour Vital Signs Date Time Temp Pulse Resp B/P (MAP) Pulse Ox O2 Delivery O2 Flow Rate FiO2 12/30/19 08:00 97.7 81 18 107/70 (82) 97 12/30/19 04:00 98.0 96 19 111/66 (81) 98 12/30/19 00:00 98.3 100 20 99/62 (74) 96 12/29/19 21:00 Nasal Cannula 3.0 12/29/19 20:12 95 Nasal Cannula 4.0 36 12/29/19 20:05 97.9 101 20 110/60 (77) 98 12/29/19 18:13 97.3 12/29/19 16:00 97.3 110 19 110/76 (87) 98 12/29/19 11:47 97.7 95 18 104/65 (78) 95 Intake and Output 12/29/19 12/30/19 19:00 07:00 Intake Total 740 ml 440 ml Output Total 450 ml Balance 740 ml -10 ml Intake Oral 120 ml IV Total 620 ml 440 ml Output Urine Total 450 ml # Voids 1 Height (Feet): 5 Height (Inches): 4.00 Weight (Pounds): 127 General Appearance: alert EENT: normal ENT inspection Neck: supple Cardiovascular: normal rate Respiratory/Chest: decreased breath sounds Abdomen: normal bowel sounds, non tender, soft Extremities: non-tender Maykel Stephen MD Dec 30, 2019 09:48
--- NOTE | 2019-12-30 10:01 | Nephrology Progress Note ---
Assessment/Plan Problem List: (1) DEANDRA (acute kidney injury) Assessment: Resolved (2) Hypotension (3) Cardiac arrest (4) DKA (diabetic ketoacidoses) (5) Respiratory distress (6) Coffee ground emesis (7) Electrolyte imbalance Assessment Acute renal failure which probably is superimposed on chronic kidney disease History of diabetes mellitus, most likely diabetic nephropathy. Presents with diabetic ketoacidosis Acute respiratory failure requiring intubation and mechanical ventilation Aspiration pneumonia, upper GI bleed Proteinuria and severe hypoalbuminemia should rule out nephrotic range proteinuria Anemia Electrolyte imbalances Plan Patient is not taking p.o. Continue per consultants Stable from renal standpoint to view Previously: Off Reglan as the patient has diarrhea C. difficile negative Patient is doing well post extubation Will replace potassium, magnesium, and phosphorus as needed Previously 2 units of packed RBCs was transfused Hydrate as needed and monitor electrolytes Per orders Previously Monitor renal parameters Avoid nephrotoxic's Anemia work-up Urine studies Keep blood sugar and blood pressure in check Per consultants Discussed with RN Subjective ROS Limited/Unobtainable: No Constitutional: Reports: malaise, weakness Objective Objective Last 24 Hour Vital Signs Date Time Temp Pulse Resp B/P (MAP) Pulse Ox O2 Delivery O2 Flow Rate FiO2 12/30/19 08:00 97.7 81 18 107/70 (82) 97 12/30/19 04:00 98.0 96 19 111/66 (81) 98 12/30/19 00:00 98.3 100 20 99/62 (74) 96 12/29/19 21:00 Nasal Cannula 3.0 12/29/19 20:12 95 Nasal Cannula 4.0 36 12/29/19 20:05 97.9 101 20 110/60 (77) 98 12/29/19 18:13 97.3 12/29/19 16:00 97.3 110 19 110/76 (87) 98 12/29/19 11:47 97.7 95 18 104/65 (78) 95 Intake and Output 12/29/19 12/30/19 19:00 07:00 Intake Total 740 ml 440 ml Output Total 450 ml Balance 740 ml -10 ml Intake Oral 120 ml IV Total 620 ml 440 ml Output Urine Total 450 ml # Voids 1 No labs today Height (Feet): 5 Height (Inches): 4.00 Weight (Pounds): 127 General Appearance: no apparent distress Cardiovascular: normal rate Objective No change Fouladian,Don MD Dec 30, 2019 10:01
[2019-12-30 10:26] LABS: BASOPHILS % (AUTO) 0.8 % (0.0-2.0); HEMATOCRIT 25.9 % (37.0-47.0); HEMOGLOBIN 8.6 G/DL (12.0-16.0); LYMPHOCYTES % (AUTO) 28.5 % (20.0-45.0); MEAN CORPUSCULAR VOLUME 90 FL (80-99); MONOCYTES % (AUTO) 3.6 % (1.0-10.0); NEUTROPHILS % (AUTO) 65.1 % (45.0-75.0); PLATELET COUNT 419 K/UL (150-450); RED BLOOD COUNT 2.89 M/UL (4.20-5.40); WHITE BLOOD COUNT 14.9 K/UL (4.8-10.8)
[2019-12-30 10:39] LABS: ALANINE AMINOTRANSFERASE 24 U/L (12-78); ALBUMIN 1.7 G/DL (3.4-5.0); ALBUMIN/GLOBULIN RATIO 0.3 (1.0-2.7); ALKALINE PHOSPHATASE 103 U/L (46-116); ANION GAP 10 mmol/L (5-15); ASPARTATE AMINO TRANSFERASE 28 U/L (15-37); BILIRUBIN,TOTAL 0.3 MG/DL (0.2-1.0); BLOOD UREA NITROGEN 16 mg/dL (7-18); CALCIUM 8.7 MG/DL (8.5-10.1); CARBON DIOXIDE 25 MMOL/L (21-32); CHLORIDE 105 MMOL/L (98-107); CREATININE 0.7 MG/DL (0.55-1.30); POTASSIUM 3.9 MMOL/L (3.5-5.1); SODIUM 140 MMOL/L (136-145)
[2019-12-30] MEDS: Acetaminophen 650mg/20.3ml GT PRN (11:53)
[2019-12-30 12:00] VITALS: BP 109/73
[2019-12-30] MEDS: D5 1/2NS 1,000 ML IV SCH (13:45)
--- NOTE | 2019-12-30 13:46 | Infectious Diseases Prog Note ---
Assessment/Plan Assessment/Plan A: 1. Diabetic ketoacidosis 2. Renal failure resolved 3. Leukocytosis 4. Pneumonia. COVID19 X 2: negative 5. Anemia 6. Hypokalemia corrected PLAN: 1. Observe off antibiotic Subjective ROS Limited/Unobtainable: Yes Constitutional: Denies: fever Allergies: Coded Allergies: No Known Allergies (Unverified , 12/11/19) Objective Vital Signs Last 24 Hour Vital Signs Date Time Temp Pulse Resp B/P (MAP) Pulse Ox O2 Delivery O2 Flow Rate FiO2 12/30/19 12:30 97.6 12/30/19 12:00 97.6 83 17 109/73 (85) 95 12/30/19 09:00 Nasal Cannula 3.0 12/30/19 09:00 Nasal Cannula 3.0 12/30/19 08:00 97.7 81 18 107/70 (82) 97 12/30/19 04:00 98.0 96 19 111/66 (81) 98 12/30/19 00:00 98.3 100 20 99/62 (74) 96 12/29/19 21:00 Nasal Cannula 3.0 12/29/19 20:12 95 Nasal Cannula 4.0 36 12/29/19 20:05 97.9 101 20 110/60 (77) 98 12/29/19 16:00 97.3 110 19 110/76 (87) 98 Height (Feet): 5 Height (Inches): 4.00 Weight (Pounds): 127 General Appearance: no acute distress HEENT: mucous membranes moist Respiratory/Chest: lungs clear Cardiovascular: normal rate, other - left arm PICC line Abdomen: soft, non tender Extremities: no edema Neurologic/Psychiatric: other - sleeping Laboratory Tests Test 12/30/19 09:45 White Blood Count 14.9 K/UL (4.8-10.8) H Red Blood Count 2.89 M/UL (4.20-5.40) L Hemoglobin 8.6 G/DL (12.0-16.0) L Hematocrit 25.9 % (37.0-47.0) L Mean Corpuscular Volume 90 FL (80-99) Mean Corpuscular Hemoglobin 29.7 PG (27.0-31.0) Mean Corpuscular Hemoglobin Concent 33.1 G/DL (32.0-36.0) Red Cell Distribution Width 14.0 % (11.6-14.8) Platelet Count 419 K/UL (150-450) Mean Platelet Volume 5.1 FL (6.5-10.1) L Neutrophils (%) (Auto) 65.1 % (45.0-75.0) Lymphocytes (%) (Auto) 28.5 % (20.0-45.0) Monocytes (%) (Auto) 3.6 % (1.0-10.0) Eosinophils (%) (Auto) 2.0 % (0.0-3.0) Basophils (%) (Auto) 0.8 % (0.0-2.0) Sodium Level 140 MMOL/L (136-145) Potassium Level 3.9 MMOL/L (3.5-5.1) Chloride Level 105 MMOL/L (98-107) Carbon Dioxide Level 25 MMOL/L (21-32) Anion Gap 10 mmol/L (5-15) Blood Urea Nitrogen 16 mg/dL (7-18) Creatinine 0.7 MG/DL (0.55-1.30) Estimat Glomerular Filtration Rate > 60 mL/min (>60) Glucose Level 142 MG/DL (74-106) H Calcium Level 8.7 MG/DL (8.5-10.1) Total Bilirubin 0.3 MG/DL (0.2-1.0) Aspartate Amino Transf (AST/SGOT) 28 U/L (15-37) Alanine Aminotransferase (ALT/SGPT) 24 U/L (12-78) Alkaline Phosphatase 103 U/L (46-116) Total Protein 7.1 G/DL (6.4-8.2) Albumin 1.7 G/DL (3.4-5.0) L Globulin 5.4 g/dL Albumin/Globulin Ratio 0.3 (1.0-2.7) L Current Medications Medications (Trade) Dose Ordered Sig/Esequiel Route PRN Reason Start Time Stop Time Status Last Admin Dose Admin Acetaminophen (Tylenol) 650 mg Q4H PRN GT Mild Pain (Pain Scale 1-3) 12/22/19 19:00 01/10/20 18:59 12/30/19 11:53 Acetaminophen (Tylenol) 650 mg Q4H PRN RECTAL Mild Pain (Pain Scale 1-3) 12/22/19 19:00 01/10/20 18:59 Chlorhexidine Gluconate (Bijal-Hex 2%) 1 applic DAILY@2000 TOPIC 12/22/19 20:00 03/11/20 19:59 12/29/19 21:21 Dextrose (Dextrose 50%) 25 ml Q30M PRN IV Hypoglycemia 12/22/19 19:00 03/12/20 01:59 Dextrose (Dextrose 50%) 50 ml Q30M PRN IV Hypoglycemia 12/22/19 19:00 03/12/20 01:59 Dextrose/Sodium Chloride 1,000 ml @ 40 mls/hr Q24H IV 12/26/19 13:45 01/25/20 13:44 12/29/19 23:50 Insulin Aspart (NovoLOG) Q6HR SUBQ 12/23/19 00:00 03/12/20 04:59 12/28/19 05:50 Insulin Detemir (Levemir) 12 units Q12HR SUBQ 12/30/19 09:00 03/20/20 08:59 12/30/19 08:49 Lactobacillus Acidophilus (Culturelle) 1 tab THREE TIMES A DAY NG 12/23/19 09:00 03/18/20 12:59 12/30/19 13:27 Loperamide HCl (Imodium) 2 mg Q4H PRN ORAL Diarrhea 12/22/19 19:00 01/21/20 18:59 Ondansetron HCl (Zofran) 4 mg Q6H PRN IVP Nausea & Vomiting 12/22/19 19:00 01/10/20 18:59 Pantoprazole (Protonix) 40 mg EVERY 12 HOURS IVP 12/22/19 21:00 01/11/20 08:59 12/30/19 08:42 Potassium Chloride (K-Dur) 40 meq BID ORAL 12/23/19 09:00 03/17/20 08:59 12/30/19 08:44 Spironolactone (Aldactone) 25 mg BID ORAL 12/23/19 09:00 01/17/20 10:59 12/30/19 08:44 Brandin Ochoa MD Dec 30, 2019 13:45
--- NOTE | 2019-12-30 15:21 | Cardiac Electrophysiology PN ---
Assessment/Plan Assessment/Plan 1. S/P Septic shock. Off pressors. EF 60%. EKG shows sinus tachy with no acute ST-T wave abnormalities. 2. S/P Respiratory failure, Extubated. 3. Hypotension. Resolved 4. Coffee-ground emesis. S/P 2 units of PRBC 5. S/P Diabetic ketoacidosis 6. Persistent hypokalemia. Improved on aldactone 25 bid and KCL po by Dr Ventura 7. Passed swallow eval and now eating. Dr. Zafar HINOJOSA RN Subjective Subjective Two covids are negative on 12/13 and 12/18. Off isolation. Passed swallow eval and now eating Objective Last 24 Hour Vital Signs Date Time Temp Pulse Resp B/P (MAP) Pulse Ox O2 Delivery O2 Flow Rate FiO2 12/30/19 12:30 97.6 12/30/19 12:00 97.6 83 17 109/73 (85) 95 12/30/19 09:00 Nasal Cannula 3.0 12/30/19 09:00 Nasal Cannula 3.0 12/30/19 08:00 97.7 81 18 107/70 (82) 97 12/30/19 04:00 98.0 96 19 111/66 (81) 98 12/30/19 00:00 98.3 100 20 99/62 (74) 96 12/29/19 21:00 Nasal Cannula 3.0 12/29/19 20:12 95 Nasal Cannula 4.0 36 12/29/19 20:05 97.9 101 20 110/60 (77) 98 12/29/19 16:00 97.3 110 19 110/76 (87) 98 Intake and Output 12/29/19 12/30/19 19:00 07:00 Intake Total 740 ml 440 ml Output Total 450 ml Balance 740 ml -10 ml Intake Oral 120 ml IV Total 620 ml 440 ml Output Urine Total 450 ml # Voids 1 Laboratory Tests Test 12/30/19 09:45 White Blood Count 14.9 K/UL (4.8-10.8) H Red Blood Count 2.89 M/UL (4.20-5.40) L Hemoglobin 8.6 G/DL (12.0-16.0) L Hematocrit 25.9 % (37.0-47.0) L Mean Corpuscular Volume 90 FL (80-99) Mean Corpuscular Hemoglobin 29.7 PG (27.0-31.0) Mean Corpuscular Hemoglobin Concent 33.1 G/DL (32.0-36.0) Red Cell Distribution Width 14.0 % (11.6-14.8) Platelet Count 419 K/UL (150-450) Mean Platelet Volume 5.1 FL (6.5-10.1) L Neutrophils (%) (Auto) 65.1 % (45.0-75.0) Lymphocytes (%) (Auto) 28.5 % (20.0-45.0) Monocytes (%) (Auto) 3.6 % (1.0-10.0) Eosinophils (%) (Auto) 2.0 % (0.0-3.0) Basophils (%) (Auto) 0.8 % (0.0-2.0) Sodium Level 140 MMOL/L (136-145) Potassium Level 3.9 MMOL/L (3.5-5.1) Chloride Level 105 MMOL/L (98-107) Carbon Dioxide Level 25 MMOL/L (21-32) Anion Gap 10 mmol/L (5-15) Blood Urea Nitrogen 16 mg/dL (7-18) Creatinine 0.7 MG/DL (0.55-1.30) Estimat Glomerular Filtration Rate > 60 mL/min (>60) Glucose Level 142 MG/DL (74-106) H Calcium Level 8.7 MG/DL (8.5-10.1) Total Bilirubin 0.3 MG/DL (0.2-1.0) Aspartate Amino Transf (AST/SGOT) 28 U/L (15-37) Alanine Aminotransferase (ALT/SGPT) 24 U/L (12-78) Alkaline Phosphatase 103 U/L (46-116) Total Protein 7.1 G/DL (6.4-8.2) Albumin 1.7 G/DL (3.4-5.0) L Globulin 5.4 g/dL Albumin/Globulin Ratio 0.3 (1.0-2.7) L Objective HEAD AND NECK: No JVD. NGT feeding LUNGS: Coarse rhonchi. CARDIOVASCULAR: Irregular S1-S2 and tachycardic. ABDOMEN: Soft. EXTREMITIES: No pitting edema. Gerardo Dyer MD Dec 30, 2019 15:21
[2019-12-30 16:00] VITALS: BP 120/69
[2019-12-30] MEDS ORDERED: cefTRIAXone 1 GM in D5W 55 ML IVPB SCH (16:00)
[2019-12-30] MEDS ORDERED: ALDACTONE25 MG ORAL (16:20)
[2019-12-30] MEDS ORDERED: POTASSIUM40 MEQ/11 PO (16:22)
[2019-12-30] MEDS ORDERED: POTASSIUM CHLO20 ME1 ORAL ×2 (16:24→16:34)
[2019-12-30] MEDS ORDERED: CULTURELLE1 EAC1 PO (16:25)
[2019-12-30] MEDS ORDERED: LEVEMIR FL100 UNIT/1 SUBQ (16:27)
[2019-12-30] MEDS ORDERED: NOVOLOG100 UNITS1 (16:32)
--- NOTE | 2019-12-30 16:39 | Surgery Progress Note ---
Surgery Progress Note Subjective Symptoms: improved, tolerating diet, passing flatus Objective Last 24 Hour Vital Signs Date Time Temp Pulse Resp B/P (MAP) Pulse Ox O2 Delivery O2 Flow Rate FiO2 12/30/19 16:00 98.0 77 18 120/69 (86) 95 12/30/19 12:30 97.6 12/30/19 12:00 97.6 83 17 109/73 (85) 95 12/30/19 09:00 Nasal Cannula 3.0 12/30/19 09:00 Nasal Cannula 3.0 12/30/19 08:00 97.7 81 18 107/70 (82) 97 12/30/19 04:00 98.0 96 19 111/66 (81) 98 12/30/19 00:00 98.3 100 20 99/62 (74) 96 12/29/19 21:00 Nasal Cannula 3.0 12/29/19 20:12 95 Nasal Cannula 4.0 36 12/29/19 20:05 97.9 101 20 110/60 (77) 98 I&O Intake and Output 12/29/19 12/30/19 19:00 07:00 Intake Total 740 ml 440 ml Output Total 450 ml Balance 740 ml -10 ml Intake Oral 120 ml IV Total 620 ml 440 ml Output Urine Total 450 ml # Voids 1 Dressing: other Wound: other Drains: other Cardiovascular: RSR Respiratory: decreased breath sounds Abdomen: soft, non-tender, present bowel sounds Extremities: no cyanosis Laboratory Tests Test 12/30/19 09:45 White Blood Count 14.9 K/UL (4.8-10.8) H Red Blood Count 2.89 M/UL (4.20-5.40) L Hemoglobin 8.6 G/DL (12.0-16.0) L Hematocrit 25.9 % (37.0-47.0) L Mean Corpuscular Volume 90 FL (80-99) Mean Corpuscular Hemoglobin 29.7 PG (27.0-31.0) Mean Corpuscular Hemoglobin Concent 33.1 G/DL (32.0-36.0) Red Cell Distribution Width 14.0 % (11.6-14.8) Platelet Count 419 K/UL (150-450) Mean Platelet Volume 5.1 FL (6.5-10.1) L Neutrophils (%) (Auto) 65.1 % (45.0-75.0) Lymphocytes (%) (Auto) 28.5 % (20.0-45.0) Monocytes (%) (Auto) 3.6 % (1.0-10.0) Eosinophils (%) (Auto) 2.0 % (0.0-3.0) Basophils (%) (Auto) 0.8 % (0.0-2.0) Sodium Level 140 MMOL/L (136-145) Potassium Level 3.9 MMOL/L (3.5-5.1) Chloride Level 105 MMOL/L (98-107) Carbon Dioxide Level 25 MMOL/L (21-32) Anion Gap 10 mmol/L (5-15) Blood Urea Nitrogen 16 mg/dL (7-18) Creatinine 0.7 MG/DL (0.55-1.30) Estimat Glomerular Filtration Rate > 60 mL/min (>60) Glucose Level 142 MG/DL (74-106) H Calcium Level 8.7 MG/DL (8.5-10.1) Total Bilirubin 0.3 MG/DL (0.2-1.0) Aspartate Amino Transf (AST/SGOT) 28 U/L (15-37) Alanine Aminotransferase (ALT/SGPT) 24 U/L (12-78) Alkaline Phosphatase 103 U/L (46-116) Total Protein 7.1 G/DL (6.4-8.2) Albumin 1.7 G/DL (3.4-5.0) L Globulin 5.4 g/dL Albumin/Globulin Ratio 0.3 (1.0-2.7) L Plan Problems: (1) Cardiac arrest (2) DKA (diabetic ketoacidoses) (3) Respiratory distress (4) Altered mental status (5) Coffee ground emesis Assessment & Plan: Coffee-ground emesis concerning for GI bleed. Transfuse PRBC now stable. No acute active bleeding noted. Discussed with GI. Will follow with recommendations hold on acute surgical intervention MBSS with 2L nasal cannula. RR appears slightly elevated. Patient given PO trials barium liquids in various consistencies. INITIAL RESULTS: Patient presenting with moderate to moderately severe oropharyngeal dysphagia. Initial review of images reveals the following: -Thin Liquids: Radiographic evidence of penetration and trace aspiration. -[place]alia Thick: Radiographic evidence of penetration and trace aspiration. -Honey Thick: Radiographic evidence of penetration and suspected aspiration ( view limited by Patient positioning). TRIAL TX: Attempted the following compensatory strategies: Double swallow, chin tuck, effortful swallow, and throat clear/re-swallow; No change in swallowing function/safety. Trials were ceased as Patient was presenting with increasingly wet vocal quality , ongoing coughing which appears wet, RR continued to appear high, and recurrent penetration and trace aspiration. 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 Pending PEG (6) High serum creatine (7) High blood urea nitrogen (BUN) (8) Abnormal TSH (9) DEANDRA (acute kidney injury) (10) Hypotension (11) Electrolyte imbalance (12) Hyperkalemia (13) Deep tissue injury Assessment & Plan: Patient identified to have a sacral deep tissue injury. No areas of open skin. No signs of acute active infection. Patient critically ill intensive care unit on support slowly making a recovery. Will make all times prevention as well as initiate care plan for healing. Turn every 2 hours. Skin protectant OPTi foam dressing. Offload heels with pillows. Will monitor closely. Great nursing care being provided. Nutritional optimization upper lip eschar 3cm x 0.5 superficial healing DAILY ESTIMATED NEEDS: Needs based on DM, pulmonary, wounds 65.5kg 25-30 kcals/kg 7153-2675 total kcals 1.25-1.5 g protein/kg 82-98 g total protein 25-30 mL/kg 4076-3561 total fluid mLs NUTRITION DIAGNOSIS: Swallowing difficulty r/t Cardiopulmonary arrest as evidenced by pt s/p extubation, s/p NGT self removal, s/p MBSS, now on [facility] soft ground texture diet. CURRENT DIET:CCHO LOW, SILVIA/ texture per [employer] PO DIET RECOMMENDATIONS: CCHO LOW, LOW NA/ texture per [employer] ADDITIONAL RECOMMENDATIONS: 1) Monitor PO intake acceptance and tolerance (PO idet started 12/28) 2) Glucerna w/ meals while PO intake suboptimal 3) Rec CCHO LOW diet only (DC SILVIA) w/ consistently poor PO 2) Calibrated bed scale wts-> 140's to 160's-> now 128.5#? (12/30/19) 3) Close BG monitoring, insulin adj per Endo 4) Wound healing: Add MVI x 1, Vit C 250mg QD Naga BID as tolerated Enrrique Martins Dec 30, 2019 16:39
--- NOTE | 2019-12-30 19:00 | Progress Note ---
DATE: 12/30/2019 SUBJECTIVE: This is a 59-year-old female who came to the emergency room for short of breath and acute cardiopulmonary arrest. The patient currently in bed, comfortable, doing okay, passed the swallow evaluation, tolerating diet. The patient has generalized weakness. PHYSICAL EXAMINATION: VITAL SIGNS: Blood pressure 107/70, pulse 81, no fever. CHEST: Bilateral decreased breath sounds. CARDIOVASCULAR: Regular rhythm. ABDOMEN: Soft. EXTREMITIES: CCE. NEUROLOGICAL: Generalized weakness. LABORATORY DATA: The patient has no labs today. ASSESSMENT: 1. Sepsis. 2. Pneumonia. 3. Acute respiratory failure. 4. Diabetes, poorly controlled. 5. Dysphagia, improving. PLAN: Continue Levemir. Continue PPI. Order PT and OT. Frank Pinzon M.D. DR: Alanis JOB#: [id number] CC:
[2019-12-31] MEDS ORDERED: Ascorbic Acid 500mg tab GT SCH (09:00)
--- NOTE | 2020-01-03 12:14 | Discharge Summary ---
Discharge Summary Discharge Summary _ DATE OF ADMISSION: 12/11/2019 DATE OF DISCHARGE: 2019 DISCHARGED BY: Dr. Pinzon REASON FOR ADMISSION: 58 years old female with past medical history of diabetes mellitus, hypertension , was sent for evaluation for altered mental status. Upon evaluation patient was tachycardic and hypoxic. Patient was also hypotensive . Laboratory work-up revealed leukocytosis WBC 18.5, hemoglobin 10.7, hematocrit 30.2, platelet count 233. Sodium 112, potassium 6.0, anion gap 33. BUN 77, creatinine 2.9. Blood glucose 1472. Lactic acid 2.6, repeated 5.9. Stable LFT. Albumin 2.2. EKG revealed sinus tachycardia with peaked T waves. Patient was tachypneic and had Kussmaul breathing . Patient aspirated black vomitus . Patient was extremely hypotensive and required fluid resuscitation. Patient was arrested in ED. Central line was placed by emergency room physician due to worsening hypotension. Patient was emergently intubated. Chest x-ray confirmed correct placement of ET tube. Hazy opacities throughout the left lung and mild patchy opacities in the right lung, possibly representing atelectasis versus infectious/inflammatory process. Patient started on insulin drip. Patient admitted to ICU for further management. Patient was also swabbed for CoVID 19. CONSULTANTS: district court administrator Dr. Cowan pulmonary Dr. Schaffer ID specialist Dr. Salvador boiler shop mechanic Dr. Ventura surgery Dr. Martins water resource project manager [facility] COURSE: Patient admitted to ICU Ventilator support and pulmonary toilet provided. Patient was on 3 different pressors. Hemodynamic status was closely monitored with goal to keep mean arterial blood pressure above 65. Patient eventually was able to be weaned off pressors. Echocardiogram revealed preserved ejection fraction of 60%. Patient started on empiric antibiotics. Blood cultures were negative. SARS-CoV-2 by PCR on 12/13 and 11/28 was not detected. Isolation was discontinued. Repeated blood culture on 12/20 were negative as well. Stool for C. difficile was negative. Patient had persistent leukocytosis , which eventually resolved and then recurred again. Hemoglobin and hematocrit dropped on 12/12 with hemoglobin 6.4. Patient undergone transfusion of 2 units of packed red blood cells, afterwards hemoglobin remained at the baseline. Stool for occult blood was one-time negative and one-time positive. Anemia work-up revealed evidence of anemia of chronic disease. Ferritin 489. Patient was follow-up with chest x-ray and ABGs. Pulmonary toilet provided. Patient was able to be extubated. Supplemental oxygen provided and titrated to keep pulse oximetry above 90%. Renal parameters and electrolytes were closely monitored. Electrolytes corrected as needed. Nephrotoxic's were avoided. Prior to discharge sodium 140, potassium 3.9. BUN 16, and creatinine 0.7. Per boiler shop mechanic acute renal failure was likely superimposed on chronic kidney disease. Blood sugar was managed as per water resource project manager recommendation. Patient initially was on insulin drip which stopped after anion gap closed. Blood sugar was managed with long-acting Levemir and short acting NovoLog . Hypoglycemia protocol was in order. Hemoglobin A1c > 16. Diabetic diet and diabetic letter provided. Initially noted abnormal TSH repeated . TSH normalized. Patient was on proton pump inhibitors intravenously twice a day. Patient pulled NG tube which initially was placed. Bedside swallow evaluation was performed, and patient was able to pass it. Diet texture provided as per speech therapist recommendations with strict aspiration precaution. Oral intake was closely monitored, and appeared to be sufficient. GI specialist recommended to hold PEG placement for now. DVT and GI prophylaxis provided. Supportive care provided. Patient clinically stabilized. Transfer was arranged to half-way facility for continuation of care. Patient was stable for transfer. FINAL DIAGNOSES: s/p cardiopulmonary arrest Septic shock -resolved Acute respiratory failure requiring intubation , status post extubation Aspiration pneumonia Upper GI bleeding Acute kidney injury probably on chronic kidney disease- resolved Anemia requiring blood transfusion DKA Diabetes mellitus [id number] with diabetic nephropathy Electrolyte imbalance Persistent hypokalemia-resolved Dysphagia Suspected COVID-19 infection - ruled out DISCHARGE MEDICATIONS: See Medication Reconciliation list. DISCHARGE INSTRUCTIONS: Patient was discharged to the half-way facility. Follow up with medical doctor at the facility. I have been assigned to dictate discharge summary for this account. I was not involved in the patient's management. Dorota Osman NP Jan 03, 2020 12:14
--- NOTE | 2020-01-04 15:33 | Diagnostic Imaging Report ---
Indications: Dysphagia Technique: Patient ingested multiple substances under the supervision of speech pathology. Video fluoroscopic recording performed. Total fluoroscopy time 154.6 seconds. Total dose area product [id number] mGycm2 Total number of images-11 Comparison: none Findings: There is trace laryngeal penetration with thin liquid barium demonstrated. With honey and nectar thick liquid barium, there is penetration. No evidence of aspiration or penetration with pudding or masticated solid Impression: Penetration of multiple substances, as described Please refer to speech pathology report for more detailed analysis
== END 2019-12-30 18:25 | DRG 720 ==
LOC: EDBD 09:06 → EMR 09:22 → EDBEDREQ 10:29 → ICU 14:07 → EDBEDREQ 14:17 → ICU 17:15 → 2W 12-15 19:40 → 2E 12-21 06:50 → 4E 12-22 18:52
PROC: 0BH17EZ Insertion of Endotracheal Airway into Trachea, Via Natural or Artificial Opening (ICD-10-PCS; principal; 2019-12-11)
PROC: 5A1945Z Respiratory Ventilation, 24-96 Consecutive Hours (ICD-10-PCS; principal; 2019-12-11)
PROC: 06HN33Z Insertion of Infusion Device into Left Femoral Vein, Percutaneous Approach (ICD-10-PCS; principal; 2019-12-11)
PROC: B548ZZA Ultrasonography of Superior Vena Cava, Guidance (ICD-10-PCS; 2019-12-17)
PROC: 02HV33Z Insertion of Infusion Device into Superior Vena Cava, Percutaneous Approach (ICD-10-PCS; 2019-12-17)
DX: A41.9 Sepsis, unspecified organism (principal); N17.9 Acute kidney failure, unspecified; J96.00 Acute respiratory failure, unspecified whether with hypoxia or hypercapnia; R65.21 Severe sepsis with septic shock; J69.0 Pneumonitis due to inhalation of food and vomit; I12.9 Hypertensive chronic kidney disease with stage 1 through stage 4 chronic kidney disease, or unspecified chronic kidney disease; E11.22 Type 2 diabetes mellitus with diabetic chronic kidney disease; E11.65 Type 2 diabetes mellitus with hyperglycemia; N18.9 Chronic kidney disease, unspecified; E11.21 Type 2 diabetes mellitus with diabetic nephropathy; E11.11 Type 2 diabetes mellitus with ketoacidosis with coma; I46.9 Cardiac arrest, cause unspecified; E87.5 Hyperkalemia; K92.2 Gastrointestinal hemorrhage, unspecified; R80.9 Proteinuria, unspecified; E87.8 Other disorders of electrolyte and fluid balance, not elsewhere classified; D64.9 Anemia, unspecified; L89.156 Pressure-induced deep tissue damage of sacral region; E87.6 Hypokalemia; Z20.828 Contact with and (suspected) exposure to other viral communicable diseases; R19.7 Diarrhea, unspecified; R79.89 Other specified abnormal findings of blood chemistry; R13.10 Dysphagia, unspecified; G93.41 Metabolic encephalopathy
CPT/HCPCS: 31500; 36415; 36569; 36600; 71045; 74018; 74230; 76937; 80048; 80053; 80076; 81001; 81003; 81050; 82009; 82140; 82150; 82270; 82607; 82728; 82746; 82803; 82962; 82977; 83036; 83540; 83550; 83605; 83615; 83690; 83735; 83880; 84100; 84156; 84300; 84439; 84443; 84481; 84484; 84550; 85007; 85025; 85610; 86140; 86850; 86900; 86901; 86920; 87040; 87324; 87635; 92610; 93005; 93306; 94002; 94003; 94664; 96361; 96365; 96367; 96375; 99291; 99292; J1815; J2370; J2765; J7030; J8499; S5561